=== PATIENT | male | born 1940 | race Caucasian/White ===

== ENCOUNTER 2018-01-18 00:30 | Emergency (ER) | payer MEDICARE, MEDICAID, SELFPAY ==
[2018-01-18 00:31] VITALS: BP 159/82; PULSE 84; RESP 18; TEMP 36.6; O2SAT 95; BMI 32.4
--- NOTE | 2018-01-18 01:10 | ED.VISSUMM ---
- ER Visit Summary Date of Service: 01/18/18 Chief Complaint: Medication refill History of Present Illness: The patient is a 77 M here for prescription for his Coumadin. Last dose was over 24 hours ago. On Coumadin for history of mechanical valve replacement in 2001. States was up to 9 mg 2 weeks ago by his PCP. Only on 6 mg. INR has not been rechecked since increasing. Denies any bleeding issues. Denies chest pains or shortness of breath. States call his PCP, however no call back all day. Physical Examination: General: Alert and oriented ?3, no acute distress HEENT: Normocephalic, atraumatic. Moist mucosa membranes Neck: supple, nontender. Cardiovascular: Regular rate and rhythm, no murmurs Respiratory: Normal breath sounds, symmetric, no distress Abdomen: Soft, nontender, nondistended Extremities: Nontender, no edema, pulses intact ?4 Neuro: no focal neurological deficits. Test Results: INR: 1.4 Emergency Department Course and Treatment: Patient asymptomatic. No recent INR check, this checked at 1.4. Has been on 9 mg for the last 2 weeks. He will be given 10 mg dose in the ED. Prescription will be written for a week supply. He will call his PCP for follow-up recheck of his Coumadin and further refills. Treatment Plan: [] Disposition: Discharge Impression: 1. Medication refill 2. Subtherapeutic INR This note was generated with [employer] dictation software. It may contain incorrect words, spelling, and punctuation that were not noted in review of the chart prior to signing ED Disposition - Plan for ED Patient: Disposition: Home or Assisted Living Chief Complaint: Med Refill Diagnosis: Medication refill, Subtherapeutic international normalized ratio (INR) Instructions: Med Refill, Taking?Coumadin Prescriptions: Warfarin Sodium 9 mg PO DAILY #12 tablet Referrals: Fredrick Conway MD [Primary Care Provider] - 3-5 Days Additional Instructions: INR 1.4 today. Status post 10 mg of warfarin in the ED. Take your 9 mg daily at home, call your PCP for recheck INR in 3-4 days.
[2018-01-18 01:17] LABS: International Normalized Ratio 1.4; Prothrombin Time (Protime)PT. 17.2 SECONDS (11.7-14.9)
[2018-01-18 02:08] VITALS: BP 138/83; PULSE 82; RESP 18; O2SAT 92
== END 2018-01-18 02:11 | disposition home or self-care (01) ==
PROVIDERS: Emergency Provider Emergency Medicine; Family Provider Family Medicine; PCP Family Medicine
DX: Z76.0 Encounter for issue of repeat prescription (principal); D68.9 Coagulation defect, unspecified; I25.10 Atherosclerotic heart disease of native coronary artery without angina pectoris; J44.9 Chronic obstructive pulmonary disease, unspecified; E11.9 Type 2 diabetes mellitus without complications; E78.00 Pure hypercholesterolemia, unspecified; Z86.73 Personal history of transient ischemic attack (TIA), and cerebral infarction without residual deficits; Z79.82 Long term (current) use of aspirin; Z79.01 Long term (current) use of anticoagulants; Z79.84 Long term (current) use of oral hypoglycemic drugs; Z79.899 Other long term (current) drug therapy
CPT/HCPCS: 85610; 99284; A4216

== ENCOUNTER 2019-03-16 20:16 | Emergency (ER) | payer MEDICARE, SELFPAY ==
[2019-03-16 20:17] VITALS: BP 169/98; PULSE 86; RESP 16; TEMP 36; O2SAT 98; BMI 31.1
--- NOTE | 2019-03-16 20:37 | ED.VIS.GEN ---
History of Present Illness Chief Complaint: Lower Extremity Injury Informant: Patient, Friend Onset: Yesterday Context: Sudden Onset Timing: Intermittent Quality: Spasm outer left leg Location: Lateral left leg Current Severity: - - None presently Maximum Severity: Moderate Worsened by: Nothing Relieved by: Nothing Associated Symptoms: No associated symptoms Narrative: Patient is a 78-year-old male who presents with intermittent spasm and firmness hardness of his lateral left leg since yesterday. Last seconds. He is on water pill. He denies trauma. He denies loss of function. The spasms are located between the knee and ankle on the lateral side of the left leg. Prior similar symptoms: No Recent Illness/Hospitalization: No - Past Medical History (1) Acute cerebrovascular accident Status: Acute (2) CAD (coronary artery disease) Status: Chronic (3) Chronic obstructive lung disease Status: Chronic (4) DM type 2 (diabetes mellitus, type 2) Status: Chronic (5) Hyperlipidemia Status: Chronic (6) mechanical prosthetic aortic valve replacement Status: Chronic Past Medical History - Allergies and Home Meds Allergies/Adverse Reactions: Allergies No Known Allergies Allergy (Verified 03/16/19 20:17) Primary Care Physician: Fredrick Conway MD [Primary Care Provider] - Prior records reviewed: Yes Surgical History: noncontributory Lives: Alone Smoking Status: Never smoker Alcohol: None Drugs: None - Family History Maternal Family History: Reports: No pertinent history Review of Systems General: Denies: Chills, Fever, Malaise, Subjective, Sweats, Weight loss ENT: Denies: Rhinorrhea, Sore throat Cardiovascular: Denies: Chest pain, Palpitations, Heart racing Respiratory: Denies: Dyspnea, Dyspnea on exertion, Orthopnea, Paroxysmal nocturnal dyspnea Gastrointestinal: Denies: Abdominal pain, Nausea, Vomiting, Diarrhea Musculoskeletal: Reports: Extremity Pain. Denies: Myalgias, Arthralgias, Neck pain, Back pain, Swelling, -, - Skin: Denies: Rash Neurological: Denies: Headache, Weakness, Parasthesia, Numbness Hematologic: Denies: Easy bruising, Easy bleeding Allergy: Denies: Uticaria, Swelling of the mouth, Swelling of the tongue Physical Exam Vital Signs/Narrative: Vital Signs Temp Pulse Resp BP Pulse Ox 03/16/19 20:17 96.8 F L 86 16 169/98 H 98 Inital Vital Signs reviewed: Yes General: Well nourished, Well developed, No Acute Distress Head: Normocephalic, Atraumatic Eyes: Perrl, EOMI ENT: Moist mucous membranes, No rhinorrhea Neck: Supple, Nontender. Negative for: No lymphadenopathy, No JVD, - Cardiovascular: Regular rate, Regular rhythm Respiratory: No distress Back: Nontender, Normal Inspection Extremities: Nontender, Edema - Plus pitting edema bilaterally, - - DP and PT pulses are diminished but palpable. There is no evidence of trauma. There is no firmness of the calf or leg. There is. Negative for: No edema Skin: Normal color, No rash, No Trauma. Negative for: Cyanosis, Diaphoresis, Jaundice Neurological: Alert, Oriented x3, Cranial nerves II-XII grossly intact, Normal Strength, Normal Sensation Psychological: Normal affect, Normal Mood Diagnostic/Tx/Re-eval Laboratory Results 03/16/19 21:20 Sodium 141 Potassium 4.4 Chloride 107 Carbon Dioxide 27.0 Anion Gap 7 BUN 31 H Creatinine 1.60 H Estim Creat Clear Calc 37.41 Est GFR (MDRD) Af Amer 54 L Est GFR (MDRD) Non-Af 45 L BUN/Creatinine Ratio 19.4 Glucose 161 H Calcium 8.7 Creatinine is elevated. Prior records indicate creatinine has been elevated in the past. Patient was informed the cause of his pain is unknown. - Medical Decision Making Since patient is on a diuretic and he is complaining of unusual symptoms and spasming of his lower extremity will obtain a basic metabolic panel to assess electrolytes. Is aware that his creatinine is elevated. He was informed that the cause of his pain is unknown. ED Disposition - Plan for ED Patient: Disposition: Home or Assisted Living Diagnosis: Intermittent left leg pain Instructions: PAIN, Uncertain Cause (Acute) Referrals: Fredrick Conway MD [Primary Care Provider] - 3-5 Days if not improving
[2019-03-16 21:42] LABS: Anion Gap 7 (5-15); BUN 31 mg/dL (7-18); BUN/Creat Ratio 19.4 RATIO (10-20); Calcium,Total 8.7 mg/dL (8.5-10.1); Chloride 107 mmol/L (98-107); EST Glomerular Filtration Rate 45 mL/min (>60); Est Glom Filt Rate - Afr Amer 54 mL/min (>60); Estimated Creatinine Clearance 37.41 ml/min; Glucose 161 mg/dL (74-106); Potassium 4.4 mmol/L (3.5-5.1); Sodium Level 141 mmol/L (136-145)
[2019-03-16 22:50] VITALS: BP 154/87; PULSE 84; RESP 16; O2SAT 97
== END 2019-03-16 22:51 | disposition home or self-care (01) ==
PROVIDERS: Emergency Provider Emergency Medicine; Family Provider Family Medicine; PCP Family Medicine
DX: M79.605 Pain in left leg (principal); I25.10 Atherosclerotic heart disease of native coronary artery without angina pectoris; J44.9 Chronic obstructive pulmonary disease, unspecified; E11.9 Type 2 diabetes mellitus without complications; E78.5 Hyperlipidemia, unspecified; Z86.73 Personal history of transient ischemic attack (TIA), and cerebral infarction without residual deficits; Z79.01 Long term (current) use of anticoagulants; Z79.82 Long term (current) use of aspirin; Z79.84 Long term (current) use of oral hypoglycemic drugs; Z79.899 Other long term (current) drug therapy
CPT/HCPCS: 36415; 80048; 99282

== ENCOUNTER 2019-07-18 15:36 | Observation (INO) | payer MEDICARE, SELFPAY ==
[2019-07-18] VITALS (7 sets, daily range): BP systolic 132–153; BP diastolic 58–93; PULSE 70–77; RESP 18–20; TEMP 36.5–37.1; O2SAT 92–98; BMI 32.1; BMI 31.4
--- NOTE | 2019-07-18 16:07 | ED.DCSUM_ITS ---
History of Present Illness Chief Complaint: GI Bleed Informant: Patient Onset: Today Current Severity: Mild Maximum Severity: Mild Narrative: Patient noted bright red blood per rectum approximately 1 hour ago. He denies abdominal pain, vomiting, diarrhea. He believes his last colonoscopy was about 4 years ago and was normal. This was performed by a physician in [place]. Patient is on chronic Coumadin secondary to aortic valve replacement. 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 Denies: Abdominal pain, Nausea, Vomiting, Diarrhea Musculoskeletal: Denies: Myalgias, Back pain Skin: Denies: Rash Neurological: Denies: Headache Allergy: Denies: Uticaria Physical Exam Vital Signs/Narrative: Vital Signs Temp Pulse Resp BP Pulse Ox 07/18/19 15:44 18 07/18/19 15:42 97.7 F L 77 18 132/93 H 94 Inital Vital Signs reviewed: Yes General: Well nourished, Well developed Head: Normocephalic ENT: Moist mucous membranes Neck: Supple Cardiovascular: Regular rate, Regular rhythm Respiratory: No distress, CTA bilaterally Abdomen: Soft, Nontender, Normal bowel sounds Rectal: - - Light brown stool as well as blood noted on gloved finger. No obvio us hemorrhoids. Extremities: Nontender Skin: Normal color Neurological: Alert, Oriented x3 Psychological: Normal affect Diagnostic/Tx/Re-eval 07/18/19 16:55 Stool Stool Occult Blood (HESHAM) - Final Occult Blood Positive Laboratory Results 07/18/19 07/18/19 07/18/19 16:23 16:23 16:23 WBC 8.3 RBC 4.56 L Hgb 13.9 Hct 41.7 MCV 91.4 MCH 30.5 MCHC 33.3 RDW Std Deviation 46.9 H RDW Coeff of Yessi 14.0 Plt Count 121 L MPV 11.6 Immature Gran % (Auto) 0.400 Neut % (Auto) 73.7 H Lymph % (Auto) 16.0 L [place] % (Auto) 8.7 Eos % (Auto) 1.0 Baso % (Auto) 0.2 Absolute Neuts (auto) 6.1 Absolute Lymphs (auto) 1.33 Nucleated RBC % 0 PT 42.8 H INR 4.4 H* Sodium 140 Potassium 3.9 Chloride 107 Carbon Dioxide 28.0 Anion Gap 5 BUN 34 H Creatinine 1.72 H Estim Creat Clear Calc 34.80 Est GFR (MDRD) Af Amer 50 L Est GFR (MDRD) Non-Af 41 L BUN/Creatinine Ratio 19.8 Glucose 195 H Calcium 8.8 - Medical Decision Making Patient was given IV fluids here. Vital signs are stable. I will speak with surgery regarding follow-up and hospitalist for admission. ED Disposition - Plan for ED Patient: Disposition: Acute Care Hospital [facility] Diagnosis: GI bleed, Supratherapeutic INR
[2019-07-18] MEDS: 0.9% Normal Saline 1,000 ML 150 ML IV (16:23)
[2019-07-18 16:38] LABS: Absolute Lymphocyte Count 1.33 X10^3/uL (0.83-4.51); Absolute Neutrophil Count 6.1 X10^3/uL (2.0-7.7); Basophil# 0.02 X10^3/uL; Basophil% 0.2 % (0-1); Eosinophil# 0.08 X10^3/uL; Hematocrit 41.7 % (40-54); Hemoglobin 13.9 g/dL (13.0-16.5); Lymphocyte # 1.33 X10^3/ul (4.0); Mean Corp Hgb Conc 33.3 g/dL (32-36); Mean Corpuscular Hgb 30.5 pg (27.0-32.0); Mean Corpuscular Volume 91.4 fL (80-94); Mean Platelet Vol. 11.6 fl (6.2-12.0); Monocyte# 0.72 X10^3/uL; Monocyte% 8.7 % (0-10); NRBC Flagged by Analyzer 0 % (0-5); Neutrophil # 6.12 X10^3/uL (2.7-7.7); Neutrophil % 73.7 % (47-70); Platelet Count 121 K/mm3 (150-450); RBC Distribution Width SD 46.9 fl (35.1-43.9); Red Blood Count 4.56 M/mm3 (4.6-6.2); White Blood Count 8.3 K/mm3 (4.4-11.0)
[2019-07-18 16:55] LABS: Prothrombin Time (Protime)PT. 42.8 SECONDS (11.7-14.9)
[2019-07-18 17:04] LABS: Anion Gap 5 (5-15); BUN 34 mg/dL (7-18); BUN/Creat Ratio 19.8 RATIO (10-20); Calcium,Total 8.8 mg/dL (8.5-10.1); Chloride 107 mmol/L (98-107); Creatinine, Serum 1.72 mg/dL (0.70-1.30); EST Glomerular Filtration Rate 41 mL/min (>60); Est Glom Filt Rate - Afr Amer 50 mL/min (>60); Glucose 195 mg/dL (74-106); Potassium 3.9 mmol/L (3.5-5.1); Sodium Level 140 mmol/L (136-145)
[2019-07-18 17:15] LABS: International Normalized Ratio 4.4
--- NOTE | 2019-07-18 18:15 | HP.PCM_ITS ---
History of Present Illness Date of Admission: 07/18/19 Chief Complaint: Bright red blood per rectum and elevated INR The patient is a 78 year old M with a medical history of coronary artery disease, aortic valve replacement, previous CVA, DM 2, HTN, HLD, GERD, bipolar disorder presents with bright red blood per rectum and elevated INR. He noticed the bright red blood about an hour prior to coming into the hospital. He states that if he had not had the bright red blood then he would have presented to the ER because of his elevated INR however if both of those were normal he felt fine and would not come in. He denies any lightheadedness, and states that he has chronic dizziness. In the ER hemoglobin was found to be 13.7 vital signs were stable. On the rectal exam there was bright red blood that was not mixed in with stool. Past Medical History Past Medical History (Chronic Problems): Chronic Problems Acute cerebrovascular accident (Chronic) CAD (coronary artery disease) (Chronic) mechanical prosthetic aortic valve replacement (Chronic) Hyperlipidemia (Chronic) DM type 2 (diabetes mellitus, type 2) (Chronic) Chronic obstructive lung disease (Chronic) Allergies No Known Allergies Allergy (Verified 03/16/19 20:17) Home Medications: Ambulatory Orders Medication Instructions Recorded Allopurinol [Zyloprim] 100 mg PO DAILYCM 06/13/17 Aspirin E.C. [Ecotrin] 81 mg PO DAILY@0800 06/13/17 Atorvastatin Calcium [Lipitor] 40 mg PO DAILY 06/13/17 Divalproex Sodium [Depakote ER] 500 mg PO BID 06/13/17 Docusate Sodium [Colace] 100 mg PO BID 06/13/17 Fluticasone 110 Mcg [Flovent (SP)] 1 puff INHALATION BID 06/13/17 Fluticasone Propionate [Flovent 50 mcg IH DAILY 06/13/17 Diskus] Furosemide [Lasix] 10 mg PO QHS 06/13/17 Furosemide [Lasix] 30 mg PO DAILY 06/13/17 Hydrocortisone 2.5% Crm [Hytone] 1 applic TOPICAL BID PRN PRN 06/13/17 Levothyroxine Sodium [Levoxyl] 50 mcg PO DAILY 06/13/17 Metoprolol Succinate 25 mg PO DAILY 06/13/17 Nitroglycerin (INPATIENT USE) 0.4 mg SUBLINGUAL Q5M PRN 06/13/17 [Nitrostat] Omeprazole [Prilosec] 20 mg PO BID 06/13/17 Oxybutynin Chloride [Ditropan Xl] 5 mg PO DAILY 06/13/17 Polyethylene Glycol 3350 [Miralax] 17 gm PO DAILY 06/13/17 Potassium Chloride [Klor-Con M20] 20 meq PO DAILY 06/13/17 Psyllium Husk [Reguloid] 0.4 gm PO DAILY 06/13/17 Quetiapine Fumarate [Seroquel] 200 mg PO BID 06/13/17 Sennosides [Senna Laxative] 8.6 mg PO BID PRN 06/13/17 Warfarin [Coumadin (PBKC)] 6 mg PO DAILY@1700 06/13/17 glipiZIDE [Glucotrol] 10 mg PO DAILY@0730 06/13/17 metFORMIN HCl [Glucophage] 500 mg PO BIDCM 06/13/17 Surgical History: cholecystectomy, - - Bladder resection and aortic valve replacement Psychiatric History: Bipolar Smoking Status: Former smoker Tobacco Use: Cigarettes Alcohol: None Drugs: None - *Family History Maternal History Items: Unknown - He does not know any biological history of either parent as he was raised in an orphanage Review of Systems Constitutional: Denies: Chills, Fever, Weight Change HEENT: Denies: Head Aches, Sinus Congestion, Sinus Drainage Cardiovascular: Denies: Chest Pain, Palpitations Respiratory: Denies: Cough, Shortness of breath at rest, Sputum production Gastrointestinal: Reports: Hematochezia. Denies: Abdominal Pain, Nausea, Vomiting Genitourinary: Denies: Dysuria Musculoskeletal: Denies: Joint Pain, Joint Tenderness Skin: Denies: Rash, Wounds Neurological: Denies: Numbness, Tingling, Focal weakness Psychiatric: Denies: Anxiety, Depression Hematologic/ Lymphatic: Denies: Easy Bruising, Easy Bleeding VTE Information - Inpt Only VTE Present on Admission: No - Physical Exam Vitals/I&O's: Vital Signs Temp Pulse Resp BP Pulse Ox 97.7 F L 74 18 139/67 H 96 07/18/19 15:42 07/18/19 18:02 07/18/19 18:02 07/18/19 18:02 07/18/19 18:02 Oxygen Delivery Method Room Air Weight: 211 lb 6.773 oz Body Mass Index (BMI) 32.1 Finger Stick Blood Glucose 188 General: Alert, Oriented x3, Cooperative, No apparent distress HEENT: Atraumatic, PERRLA, EOMI, Normocephalic Oral: Moist Mucosa Neck: Supple, No JVD Lungs: Clear to auscultation, Normal air movement, No rhonchi, No wheeze, No rales Cardiovascular: Regular rate, Regular Rhythm, Normal S1, Normal S2, No murmurs, - - Click from valve Abdomen: Soft, Non Tender, Non-Distended, No Hepato-splenomegaly Extremities: No edema, Capillary Refill Less than 3 Seconds Skin: No rashes, No breakdown Neurological: Neuro grossly intact, Sensory exam intact to light touch and pain Psych/Mental Status: Normal Affect, Appropriate Microbiology Past 72 Hours 07/18/19 16:55 Stool Stool Occult Blood (HESHAM) - Final Occult Blood Positive Laboratory Results 07/18/19 16:23: WBC 8.3, RBC 4.56 L, Hgb 13.9, Hct 41.7, MCV 91.4, MCH 30.5, MCHC 33.3, RDW Std Deviation 46.9 H, RDW Coeff of Yessi 14.0, Plt Count 121 L, MPV 11.6, Immature Gran % (Auto) 0.400, Neut % (Auto) 73.7 H, Lymph % (Auto) 16.0 L , [place] % (Auto) 8.7, Eos % (Auto) 1.0, Baso % (Auto) 0.2, Absolute Neuts (auto) 6.1, Absolute Lymphs (auto) 1.33, Nucleated RBC % 0 07/18/19 16:23: PT 42.8 H, INR 4.4 H* 07/18/19 16:23: Sodium 140, Potassium 3.9, Chloride 107, Carbon Dioxide 28.0, Anion Gap 5, BUN 34 H, Creatinine 1.72 H, Estim Creat Clear Calc 34.80, Est GFR (MDRD) Af Amer 50 L, Est GFR (MDRD) Non-Af 41 L, BUN/Creatinine Ratio 19.8, Glucose 195 H, Calcium 8.8 07/18/19 16:23: Blood Type B POSITIVE, Antibody Screen NEGATIVE Current Medications Sodium Chloride () 1,000 mls @ 150 mls/hr IV .Q6H40M EDD Last Admin: 07/18/19 16:23 Dose: 150 mls/hr Documented by: Assessment/Plan All Active Problems Anticoagulation goal of INR 2.5 to 3.5 (Acute) Facial droop (Acute) 1. 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 CAD that is post CABG/HTN/HLD/aortic valve replacement/history of CVA -Blood pressure has been stable -Continue with aspirin as well and his Lipitor -There may also be a diagnosis of heart failure since he does have in his chart project read discharge instructions, and he is on Lasix which can be continued -Hold Coumadin 3. DM 2/CKD 3 -We will hold his oral diabetic medications and place him on a sliding scale insulin -Accu checks AC at bedtime -Continue to monitor creatinine 4. History of gout -Stable -Continue with allopurinol 5. Bipolar disorder -Stable -Tinea with Depakote and Seroquel 6. GERD -Stable -Continue with PPI 7. Hypothyroidism -Stable -Continue with Synthroid DVT: Supratherapeutic INR Code Visit OBSV E&M: 96926 Initial observation care L3
[2019-07-18] MEDS: 0.9% Saline Lock 10 ML Syringe IV (20:17)
[2019-07-18] MEDS: Pantoprazole Sodium 20 MG Tablet PO (21:17)
[2019-07-18] MEDS: Atorvastatin Calcium 40 MG Tablet PO (21:17)
[2019-07-18] MEDS: Divalproex (ER) 500 MG Tablet PO (21:17)
[2019-07-18] MEDS: Docusate Sodium 100 MG Capsule PO (21:17)
[2019-07-18] MEDS: QUEtiapine 100 MG Tablet 200 MG PO (21:17)
[2019-07-18] MEDS: Furosemide 20 MG Tablet 10 MG PO (21:18)
[2019-07-18 21:26] LABS: Bedside Glucose 135 mg/dL (70-110)
[2019-07-18] MEDS: Budesonide Respules 0.5 MG/2 ML AMPUL.NEB. INHALATION (21:53)
[2019-07-19] VITALS (8 sets, daily range): BP systolic 117–137; BP diastolic 70–83; PULSE 68–79; RESP 16–21; TEMP 36.4–36.6; O2SAT 93–97
[2019-07-19] MEDS: Levothyroxine 50 MCG Tablet PO (06:42)
[2019-07-19 06:50] LABS: Bedside Glucose 85 mg/dL (70-110)
[2019-07-19 06:59] LABS: Absolute Lymphocyte Count 2.42 X10^3/uL (0.83-4.51); Absolute Neutrophil Count 4.4 X10^3/uL (2.0-7.7); Basophil# 0.03 X10^3/uL; Basophil% 0.4 % (0-1); Eosinophil# 0.12 X10^3/uL; Eosinophils% 1.5 % (0-5); Hematocrit 40.3 % (40-54); Hemoglobin 13.3 g/dL (13.0-16.5); Lymphocyte # 2.42 X10^3/ul (4.0); Lymphocyte % 31.2 % (19-41); Mean Corpuscular Hgb 29.8 pg (27.0-32.0); Mean Corpuscular Volume 90.2 fL (80-94); Mean Platelet Vol. 11.6 fl (6.2-12.0); Monocyte# 0.77 X10^3/uL; Monocyte% 9.9 % (0-10); NRBC Flagged by Analyzer 0 % (0-5); Neutrophil # 4.39 X10^3/uL (2.7-7.7); Neutrophil % 56.7 % (47-70); Platelet Count 117 K/mm3 (150-450); RBC Distribution Width SD 45.9 fl (35.1-43.9); Red Blood Count 4.47 M/mm3 (4.6-6.2); White Blood Count 7.8 K/mm3 (4.4-11.0)
[2019-07-19 07:04] LABS: Prothrombin Time (Protime)PT. 35.9 SECONDS (11.7-14.9)
[2019-07-19 07:08] LABS: Anion Gap 6 (5-15); BUN 27 mg/dL (7-18); BUN/Creat Ratio 19.1 RATIO (10-20); Calcium,Total 8.5 mg/dL (8.5-10.1); Chloride 109 mmol/L (98-107); Creatinine, Serum 1.41 mg/dL (0.70-1.30); EST Glomerular Filtration Rate 52 mL/min (>60); Est Glom Filt Rate - Afr Amer 63 mL/min (>60); Estimated Creatinine Clearance 42.45 ml/min; Glucose 84 mg/dL (74-106); Potassium 3.7 mmol/L (3.5-5.1); Sodium Level 142 mmol/L (136-145)
[2019-07-19 07:12] LABS: International Normalized Ratio 3.6
--- NOTE | 2019-07-19 08:10 | PCM.PN.HOSP ---
Patient Problems: Active and Suspected Problems GI bleed (Acute) Supratherapeutic INR (Acute) Reason for Visit: GI bleed Subjective: Patient was seen and examined. Denied any new complaints. No more bleeding seen. Objective: Physical exam: General: Alert, Oriented x3, Cooperative, No apparent distress HEENT: Atraumatic, PERRLA, EOMI, Normocephalic Oral: Moist Mucosa Neck: Supple, No JVD Lungs: Clear to auscultation, Normal air movement, No rhonchi, No wheeze, No rales Cardiovascular: Regular rate, Regular Rhythm, Normal S1, Normal S2, No murmurs, - - Click from valve Abdomen: Soft, Non Tender, Non-Distended, No Hepato-splenomegaly Extremities: No edema, Capillary Refill Less than 3 Seconds Skin: No rashes, No breakdown Neurological: Neuro grossly intact, Sensory exam intact to light touch and pain Psych/Mental Status: Normal Affect, Appropriate Vitals/I&O's: Vital Signs Temp Pulse Resp BP Pulse Ox 97.6 F L 68 20 H 123/70 H 93 07/19/19 03:50 07/19/19 03:50 07/19/19 03:50 07/19/19 03:50 07/19/19 03:50 Oxygen Delivery Method Room Air Weight: 93.621 kg Body Mass Index (BMI) 31.4 Finger Stick Blood Glucose 188 Intake and Output for Last 24 Hours 07/17/19 07/18/19 07/19/19 23:59 23:59 23:59 Intake Total 1000 / 1000 400 / 400 Output Total 350 / 350 Balance 1000 / 1000 50 / 50 Microbiology Past 72 Hours 07/18/19 16:55 Stool Stool Occult Blood (HESHAM) - Final Occult Blood Positive Laboratory Results 07/18/19 16:23: WBC 8.3, RBC 4.56 L, Hgb 13.9, Hct 41.7, MCV 91.4, MCH 30.5, MCHC 33.3, RDW Std Deviation 46.9 H, RDW Coeff of Yessi 14.0, Plt Count 121 L, MPV 11.6, Immature Gran % (Auto) 0.400, Neut % (Auto) 73.7 H, Lymph % (Auto) 16.0 L, [place] % (Auto) 8.7, Eos % (Auto) 1.0, Baso % (Auto) 0.2, Absolute Neuts (auto) 6.1, Absolute Lymphs (auto) 1.33, Nucleated RBC % 0 07/18/19 16:23: PT 42.8 H, INR 4.4 H* 07/18/19 16:23: Sodium 140, Potassium 3.9, Chloride 107, Carbon Dioxide 28.0, Anion Gap 5, BUN 34 H, Creatinine 1.72 H, Estim Creat Clear Calc 34.80, Est GFR (MDRD) Af Amer 50 L, Est GFR (MDRD) Non-Af 41 L, BUN/Creatinine Ratio 19.8, Glucose 195 H, Calcium 8.8 07/18/19 16:23: Blood Type B POSITIVE, Antibody Screen NEGATIVE 07/18/19 21:07: POC Glucose 135 H 07/19/19 06:03: WBC 7.8, RBC 4.47 L, Hgb 13.3, Hct 40.3, MCV 90.2, MCH 29.8, MCHC 33.0, RDW Std Deviation 45.9 H, RDW Coeff of Yessi 14.0, Plt Count 117 L, MPV 11.6, Immature Gran % (Auto) 0.300, Neut % (Auto) 56.7, Lymph % (Auto) 31.2, [place] % (Auto) 9.9, Eos % (Auto) 1.5, Baso % (Auto) 0.4, Absolute Neuts (auto) 4.4, Absolute Lymphs (auto) 2.42, Nucleated RBC % 0 07/19/19 06:03: PT 35.9 H, INR 3.6 H* 07/19/19 06:03: Sodium 142, Potassium 3.7, Chloride 109 H, Carbon Dioxide 27.0, Anion Gap 6, BUN 27 H, Creatinine 1.41 H, Estim Creat Clear Calc 42.45, Est GFR (MDRD) Af Amer 63, Est GFR (MDRD) Non-Af 52 L, BUN/Creatinine Ratio 19.1, Glucose 84, Calcium 8.5 07/19/19 06:42: POC Glucose 85 Current Medications [facility]) [facility] Atorvastatin Calcium (Lipitor) 40 mg PO QHS [facility] Last Admin: 07/18/19 21:17 Dose: 40 mg Documented by: Budesonide (Pulmicort Aerosol) 0.5 mg INHALATION Q12H.RT [facility] Last Admin: 07/18/19 21:53 Dose: 0.5 mg Documented by: Divalproex Sodium (Depakote Er) 500 mg PO BID [facility] Last Admin: 07/18/19 21:17 Dose: 500 mg Documented by: Docusate Sodium (Colace) 100 mg PO BID [facility] Last Admin: 07/18/19 21:17 Dose: 100 mg Documented by: Fluticasone Propionate (Flonase Nasal [place]) 2 spray NASAL DAILY [facility] Furosemide (Lasix) 10 mg PO QHS [facility] Last Admin: 07/18/19 21:18 Dose: 10 mg Documented by: Furosemide (Lasix) 30 mg PO DAILY [facility] Glucagon () 1 mg IM .X1 PRN PRN Reason: Hypoglycemia Dextrose (Dextrose 10%-Water) 250 mls @ 999 mls/hr IV .Q16M PRN; Protocol PRN Reason: HYPOGLYCEMIA Insulin Human Lispro (Humalog Kwikpen (Bkc)) 0 unit SC ACHS [facility]; Protocol Last Admin: 07/19/19 06:42 Dose: Not Given Documented by: Levothyroxine Sodium (Synthroid) 50 mcg PO DAILY@0600 [facility] Last Admin: 07/19/19 06:42 Dose: 50 mcg Documented by: Metoprolol Succinate (Toprol Xl (Beta Damir)) 25 mg PO DAILY [facility] Pantoprazole Sodium (Protonix) 20 mg PO BID [facility] Last Admin: 07/18/19 21:17 Dose: 20 mg Documented by: Polyethylene Glycol (Miralax) 17 gm PO DAILY [facility] Potassium Chloride (K-Dur) 20 meq PO DAILY [facility] Quetiapine Fumarate (Seroquel) 200 mg PO BID [facility] Last Admin: 07/18/19 21:17 Dose: 200 mg Documented by: Sodium Chloride () 10 - 40 ml IV UD PRN PRN Reason: SALINE FLUSH Last Admin: 07/18/19 20:17 Dose: 10 ml Documented by: Tolterodine Tartrate (Detrol La) 2 mg PO DAILY [facility] Medical Necessity - Tobacco Use Smoking Status: Former smoker Tobacco Use: Cigarettes Assessment/Plan All Active Problems GI bleed (Acute) Supratherapeutic INR (Acute) Anticoagulation goal of INR 2.5 to 3.5 (Acute) Facial droop (Acute) 1. GI bleed, resolved, stable vitals, stable hemoglobin Will continue to monitor 2. CAD s/p CABG/aortic valve replacement, continue on aspirin, statin INR is slightly supratherapeutic, would hold off coumadin, goal INR -2.5-3.5 Repeat INR in a.m. 3. Type 2 DM, BS are controlled, Continue on ISS 4. Gout, on allopurinol 5. Bipolar disorder, continue on Depakote and Seroquel 6. Hypothyroidism, continue on Synthroid 7. DVT PPx -INR is supratherapeutic Code Visit Inpatient E&M: 14056 Subs Hosp L2
[2019-07-19] MEDS: Fluticasone 0.05% 1 SPRAY NASAL.SRY 2 SPRAY NASAL (08:20)
[2019-07-19] MEDS: Pantoprazole Sodium 20 MG Tablet PO ×2 (08:21→22:48)
[2019-07-19] MEDS: Furosemide 20 MG Tablet 30 MG PO (08:21)
[2019-07-19] MEDS: Tolterodine Tartrate 2 MG CAP.SA PO (08:21)
[2019-07-19] MEDS: Docusate Sodium 100 MG Capsule PO ×2 (08:22→22:48)
[2019-07-19] MEDS: Divalproex (ER) 500 MG Tablet PO ×2 (08:23→22:48)
[2019-07-19] MEDS: QUEtiapine 100 MG Tablet 200 MG PO ×2 (08:23→22:48)
[2019-07-19] MEDS: Allopurinol 100 MG Tablet PO (08:23)
[2019-07-19] MEDS: Polyethylene Glycol 3350 17 GM PACKET PO (08:23)
[2019-07-19] MEDS: Metoprolol(XL)Succ 25 MG Tablet PO (08:23)
[2019-07-19 11:10] LABS: Bedside Glucose 115 mg/dL (70-110)
[2019-07-19] MEDS: Budesonide Respules 0.5 MG/2 ML AMPUL.NEB. INHALATION ×2 (11:34→19:09)
--- NOTE | 2019-07-19 11:50 | CASEMGMT ---
RN CM Face to Face with patient for initial transition planning/care coordination assessment. RN CM introduced self and role at [facility]. Patient sitting in chair, alert and oriented. Patient willing to participate in assessment and is able to answer all questions appropriately. Care providers, pharmacy, and demographics verified. Patient wishes to discharge home with resumption of aide services. Patient states he has no further needs or concerns at this time. CM to follow for discharge planning needs that may arise. PCP: Man Specialists: Zach resident inspector Preferred Pharmacy: [facility] Insurance: [employer] Prescription Benefit: yes Living Will/HPOA: yes, Feng Le LNOK: [facility] Living Arrangements: Patient lives alone in first floor apartment, no steps. Patient states he is independent at home. Transportation: [facility] [employer] DME/HHC: Patient has shower chair, grab bars, Cpap at home. Patient has aide services through [employer] 6 days per week, patient not aware of company. SW updated regarding [employer] services Disposition Plan: Patient to discharge home with aide services and follow-up plans in place. Sharmila NELSON, RN, CM
--- NOTE | 2019-07-19 14:48 | CASEMGMT ---
DARRON called [facility], message left for pt's CHERRY Bryan. SW called back and spoke w/the covering transplant case manager, Karan Cruz. He states pt has aide services two hours per day 6 days per week for homemaker services and personal care through [employer]. He states pt has aide services every day but Monday. Pt also has [employer], 10 meals delivered biweekly. DARRON called [employer], spoke w/hCaya and let her know pt is here in the hospital. Green sheet placed on chart in anticipation of weekend discharge for pt. ALEK Hinds
--- NOTE | 2019-07-19 15:42 | CHAPLAIN ---
Type of Pastoral Visit _x__ Initial Visit ___ Follow-up Visit ___ On-call Visit ___ General Patient Visit ___ Spiritual Assessment ___ Family Conference ___ Bereavement ___ Rapid Response ___ Code Blue ___ Other (describe below) Pastoral Care Referral From _x__ Patient ___ Family ___ Nurse ___ Physician ___ Hot Dip Tinning Supervisor ___ Costume Design Teacher ___ Other (describe below) Sacrament/Intervention _x__ Active listening ___ Anointing ___ Mandaen ___ Bereavement ___ Communion _x__ Dolores exploration ___ _x__ Life review _x__ Prayer ___ Reconciliation ___ Sacrament of Sick _x__ Supportive presence ___ Wedding ___ Other (describe below) Pastoral Comments patient gives a lot of information about his life history and the challenges he has faced; pt expresses his dolores in God; pt would like loss prevention detective to contact his gnosticism; contact was made with gnosticism later by this loss prevention detective
--- NOTE | 2019-07-19 15:48 | CASEMGMT ---
RN CHERRY NOTE: To room to review OWEN form. Introduced self and role of RN CHERRY. Reviewed OWEN form with pt and he denies having questions. Form signed by pt, copy made and placed on chart, and original given to pt. Pt instructed to ask for CM if he has any further questions. Pilar MACKEYN MACARENA CM
[2019-07-19 16:11] LABS: Bedside Glucose 146 mg/dL (70-110)
[2019-07-19] MEDS: Furosemide 20 MG Tablet 10 MG PO (22:47)
[2019-07-19] MEDS: Atorvastatin Calcium 40 MG Tablet PO (22:48)
[2019-07-19 22:56] LABS: Bedside Glucose 107 mg/dL (70-110)
[2019-07-20 02:50] VITALS: BP 124/67; PULSE 74; RESP 16; TEMP 36.9; O2SAT 95
[2019-07-20] MEDS: Levothyroxine 50 MCG Tablet PO (06:36)
[2019-07-20 06:50] LABS: Bedside Glucose 116 mg/dL (70-110)
[2019-07-20 06:53] VITALS: PULSE 67; RESP 20; O2SAT 94
[2019-07-20] MEDS: Budesonide Respules 0.5 MG/2 ML AMPUL.NEB. INHALATION (06:53)
[2019-07-20 07:18] LABS: Absolute Lymphocyte Count 1.85 X10^3/uL (0.83-4.51); Basophil# 0.02 X10^3/uL; Basophil% 0.3 % (0-1); Eosinophil# 0.24 X10^3/uL; Eosinophils% 4.2 % (0-5); Hematocrit 40.4 % (40-54); Hemoglobin 13.5 g/dL (13.0-16.5); Lymphocyte # 1.85 X10^3/ul (4.0); Lymphocyte % 32.1 % (19-41); Mean Corp Hgb Conc 33.4 g/dL (32-36); Mean Corpuscular Volume 89.8 fL (80-94); Mean Platelet Vol. 11.9 fl (6.2-12.0); Monocyte# 0.62 X10^3/uL; Monocyte% 10.7 % (0-10); NRBC Flagged by Analyzer 0 % (0-5); Neutrophil # 3.02 X10^3/uL (2.7-7.7); Neutrophil % 52.4 % (47-70); Platelet Count 110 K/mm3 (150-450); RBC Distribution Width CV 13.9 % (11.6-14.6); RBC Distribution Width SD 45.3 fl (35.1-43.9); White Blood Count 5.8 K/mm3 (4.4-11.0)
[2019-07-20 07:24] LABS: International Normalized Ratio 2.8; Prothrombin Time (Protime)PT. 29.3 SECONDS (11.7-14.9)
[2019-07-20 07:39] LABS: Anion Gap 6 (5-15); BUN 19 mg/dL (7-18); BUN/Creat Ratio 13.7 RATIO (10-20); Chloride 110 mmol/L (98-107); Creatinine, Serum 1.39 mg/dL (0.70-1.30); EST Glomerular Filtration Rate 53 mL/min (>60); Est Glom Filt Rate - Afr Amer 64 mL/min (>60); Estimated Creatinine Clearance 42.37 ml/min; Glucose 116 mg/dL (74-106); Potassium 4.3 mmol/L (3.5-5.1); Sodium Level 141 mmol/L (136-145)
[2019-07-20 08:00] VITALS: BP 124/77; PULSE 64; RESP 14; TEMP 36.4; O2SAT 95
--- NOTE | 2019-07-20 08:11 | DCINST_ITS ---
- Discharge Diagnoses Current Active Problems: Current Active and Chronic Problems GI bleed (Acute) Supratherapeutic INR (Acute) Reason(s) for Visit for Discharge Instructions: GI bleed You will use the following diet at home:: Cardiac Your food should be the consistency of: Regular Your liquids should be the consistency of: Regular/Thin Discharge Activity: Return to Normal Activity Additional Instructions: Continue to take your medications. Follow-up with your primary care doctor for INR checks within 3 days. Continue to monitor for blood in your stools. Allergies/Adverse Reactions: Allergies No Known Allergies Allergy (Verified 03/16/19 20:17) Medications to take at Discharge Allopurinol [Zyloprim] 100 mg PO DAILYCM 06/13/17 Aspirin E.C. [Ecotrin] 81 mg PO DAILY@0800 06/13/17 Atorvastatin Calcium [Lipitor] 40 mg PO DAILY 06/13/17 Divalproex Sodium [Depakote ER] 500 mg PO BID 06/13/17 Docusate Sodium [Colace] 100 mg PO BID 06/13/17 Fluticasone 110 Mcg [Flovent 110 Mcg] 1 puff INHALATION BID 06/13/17 Furosemide [Lasix] 10 mg PO QHS 06/13/17 Furosemide [Lasix] 30 mg PO DAILY 06/13/17 Nitroglycerin (INPATIENT USE) [Nitrostat] 0.4 mg SUBLINGUAL Q5M PRN 06/13/17 Omeprazole [Prilosec] 20 mg PO BID 06/13/17 Oxybutynin Chloride [Ditropan Xl] 5 mg PO DAILY 06/13/17 Polyethylene Glycol 3350 [Miralax] 17 gm PO DAILY 06/13/17 Quetiapine Fumarate [Seroquel] 200 mg PO BID 06/13/17 glipiZIDE [Glucotrol] 10 mg PO DAILY@0730 06/13/17 metFORMIN HCl [Glucophage] 500 mg PO BIDCM 06/13/17 Fluticasone 0.05% [Flonase Nasal [place]] 2 spray NASAL DAILY 07/18/19 Insulin Glargine,Hum.rec.anlog [Basaglar Kwikpen U-100] 16 unit SQ QHS 07/18/19 Levothyroxine Sodium 50 mcg PO DAILY 07/18/19 Metoprolol Succinate [Toprol Xl] 25 mg PO DAILY 07/18/19 Potassium Chloride [Klor-Con M20] 20 meq PO DAILY 07/18/19 Psyllium Husk [Reguloid] 0.4 mg PO DAILY 07/18/19 Sennosides [Senna] 8.6 mg PO BID PRN PRN 07/18/19 Warfarin [Coumadin] 3 mg PO DAILY #30 tab 07/20/19 The following prescriptions were given: Warfarin [Coumadin] 3 mg PO DAILY #30 tab Primary Care Physician: Fredrick Conway MD [Primary Care Provider] - Please follow up with your Primary Care Physician in: within 1 week Test Results: Test results from this visit will be discussed in further detail at your follow- up appointment, if applicable. Proposed Discharge Date: 07/20/19
--- NOTE | 2019-07-20 09:58 | DS.PCM_ITS ---
Discharge Date and Diagnosis Date of Admission: 07/18/19 Date of Discharge: 07/20/19 - Primary Discharge Diagnosis Active and Suspected Problems GI bleed (Acute) Supratherapeutic INR (Acute) - Secondary Discharge Diagnosis Chronic Problems Acute cerebrovascular accident (Chronic) CAD (coronary artery disease) (Chronic) mechanical prosthetic aortic valve replacement (Chronic) Hyperlipidemia (Chronic) DM type 2 (diabetes mellitus, type 2) (Chronic) Chronic obstructive lung disease (Chronic) Hospital Course and Treatment None Operations: None Procedures: None Summary of Care Provided: The patient is a 79 year old M with past medical history of CAD status post CABG, status post aortic valve replacement, type II DM, hypertension who comes in with bleeding per rectum and an elevated INR. Patient INR was elevated and was told to be off his Coumadin. 1 hour prior to his admission, he noted bright red bleeding in his stools. Patient's INR was 2.4 on admission. His Coumadin was held. Repeat INR was 3.6. This was held further, repeat INR on the day of discharge was 2.8. There was no bleeding noted during the hospital stay. His hemoglobin remained stable at 13.5. Patient GI bleed was felt to be due to probable hemorrhoids. He was discharged on Coumadin 3 mg daily. We will follow-up with his primary care doctor in 3 days for repeat INR. He was asked to monitor his stools for further bleeding. He was asked to follow-up with his primary care doctor within 1 to 2 weeks. Subjective: On the day of discharge, patient was seen and examined. He felt improved, no bleeding seen here Objective: Physical exam: General: Alert, Oriented x3, Cooperative, No apparent distress HEENT: Atraumatic, PERRLA, EOMI, Normocephalic Oral: Moist Mucosa Neck: Supple, No JVD Lungs: Clear to auscultation, Normal air movement, No rhonchi, No wheeze, No rales Cardiovascular: Regular rate, Regular Rhythm, Normal S1, Normal S2, No murmurs, - - Click from valve Abdomen: Soft, Non Tender, Non-Distended, No Hepato-splenomegaly Extremities: No edema, Capillary Refill Less than 3 Seconds Skin: No rashes, No breakdown Neurological: Neuro grossly intact, Sensory exam intact to light touch and pain Psych/Mental Status: Normal Affect, Appropriate - Physical Exam Vitals/I&O's: Vital Signs Temp Pulse Resp BP Pulse Ox 97.5 F L 64 14 124/77 H 95 07/20/19 08:00 07/20/19 08:00 07/20/19 08:00 07/20/19 08:00 07/20/19 08:00 Oxygen Delivery Method Room Air Weight: 93.621 kg Body Mass Index (BMI) 31.4 Finger Stick Blood Glucose 188 Intake and Output for Last 24 Hours 07/18/19 07/19/19 07/20/19 23:59 23:59 23:59 Intake Total 1000 / 1000 1350 / 1350 400 / 400 Output Total 2150 / 2150 700 / 700 Balance 1000 / 1000 -800 / -800 -300 / -300 Microbiology Past 72 Hours 07/18/19 16:55 Stool Stool Occult Blood (HESHAM) - Final Occult Blood Positive Laboratory Results 07/19/19 11:06: POC Glucose 115 H 07/19/19 16:04: POC Glucose 146 H 07/19/19 22:43: POC Glucose 107 07/20/19 06:36: PT 29.3 H, INR 2.8 07/20/19 06:36: WBC 5.8, RBC 4.50 L, Hgb 13.5, Hct 40.4, MCV 89.8, MCH 30.0, MCHC 33.4, RDW Std Deviation 45.3 H, RDW Coeff of Yessi 13.9, Plt Count 110 L, MPV 11.9, Immature Gran % (Auto) 0.300, Neut % (Auto) 52.4, Lymph % (Auto) 32.1, [place] % (Auto) 10.7 H, Eos % (Auto) 4.2, Baso % (Auto) 0.3, Absolute Neuts (auto) 3.0, Absolute Lymphs (auto) 1.85, Nucleated RBC % 0 07/20/19 06:36: Sodium 141, Potassium 4.3, Chloride 110 H, Carbon Dioxide 25.0, Anion Gap 6, BUN 19 H, Creatinine 1.39 H, Estim Creat Clear Calc 42.37, Est GFR (MDRD) Af Amer 64, Est GFR (MDRD) Non-Af 53 L, BUN/Creatinine Ratio 13.7, Glucose 116 H, Calcium 9.0 07/20/19 06:38: POC Glucose 116 H Current Medications Allopurinol (Zyloprim) 100 mg PO DAILYCM [facility] Last Admin: 07/19/19 08:23 Dose: 100 mg Documented by: Atorvastatin Calcium (Lipitor) 40 mg PO QHS [facility] Last Admin: 07/19/19 22:48 Dose: 40 mg Documented by: Budesonide (Pulmicort Aerosol) 0.5 mg INHALATION Q12H.RT [facility] Last Admin: 07/20/19 06:53 Dose: 0.5 mg Documented by: Divalproex Sodium (Depakote Er) 500 mg PO BID [facility] Last Admin: 07/19/19 22:48 Dose: 500 mg Documented by: Docusate Sodium (Colace) 100 mg PO BID [facility] Last Admin: 07/19/19 22:48 Dose: 100 mg Documented by: Fluticasone Propionate (Flonase Nasal [place]) 2 spray NASAL DAILY [facility] Last Admin: 07/19/19 08:20 Dose: 2 spray Documented by: Furosemide (Lasix) 10 mg PO QHS [facility] Last Admin: 07/19/19 22:47 Dose: 10 mg Documented by: Furosemide (Lasix) 30 mg PO DAILY [facility] Last Admin: 07/19/19 08:21 Dose: 30 mg Documented by: Glucagon () 1 mg IM .X1 PRN PRN Reason: Hypoglycemia Dextrose (Dextrose 10%-Water) 250 mls @ 999 mls/hr IV .Q16M PRN; Protocol PRN Reason: HYPOGLYCEMIA Insulin Human Lispro (Humalog Kwikpen (Bkc)) 0 unit SC ACHS [facility]; Protocol Last Admin: 07/20/19 06:39 Dose: Not Given Documented by: Levothyroxine Sodium (Synthroid) 50 mcg PO DAILY@0600 [facility] Last Admin: 07/20/19 06:36 Dose: 50 mcg Documented by: Metoprolol Succinate (Toprol Xl (Beta Damir)) 25 mg PO DAILY [facility] Last Admin: 07/19/19 08:23 Dose: 25 mg Documented by: Pantoprazole Sodium (Protonix) 20 mg PO BID [facility] Last Admin: 07/19/19 22:48 Dose: 20 mg Documented by: Polyethylene Glycol (Miralax) 17 gm PO DAILY [facility] Last Admin: 07/19/19 08:23 Dose: 17 gm Documented by: Potassium Chloride (K-Dur) 20 meq PO DAILY [facility] Last Admin: 07/19/19 08:23 Dose: 20 meq Documented by: Quetiapine Fumarate (Seroquel) 200 mg PO BID [facility] Last Admin: 07/19/19 22:48 Dose: 200 mg Documented by: Sodium Chloride () 10 - 40 ml IV UD PRN PRN Reason: SALINE FLUSH Last Admin: 07/18/19 20:17 Dose: 10 ml Documented by: Tolterodine Tartrate (Detrol La) 2 mg PO DAILY [facility] Last Admin: 07/19/19 08:21 Dose: 2 mg Documented by: Discharge Diet: Low fat/ Low Cholesterol, 2000 mg Sodium Diet Discharge Activity: Return to Normal Activity Home Medications: Medications to take at Discharge Allopurinol [Zyloprim] 100 mg PO DAILYCM 06/13/17 Aspirin E.C. [Ecotrin] 81 mg PO DAILY@0800 06/13/17 Atorvastatin Calcium [Lipitor] 40 mg PO DAILY 06/13/17 Divalproex Sodium [Depakote ER] 500 mg PO BID 06/13/17 Docusate Sodium [Colace] 100 mg PO BID 06/13/17 Fluticasone 110 Mcg [Flovent 110 Mcg] 1 puff INHALATION BID 06/13/17 Furosemide [Lasix] 10 mg PO QHS 06/13/17 Furosemide [Lasix] 30 mg PO DAILY 06/13/17 Nitroglycerin (INPATIENT USE) [Nitrostat] 0.4 mg SUBLINGUAL Q5M PRN 06/13/17 Omeprazole [Prilosec] 20 mg PO BID 06/13/17 Oxybutynin Chloride [Ditropan Xl] 5 mg PO DAILY 06/13/17 Polyethylene Glycol 3350 [Miralax] 17 gm PO DAILY 06/13/17 Quetiapine Fumarate [Seroquel] 200 mg PO BID 06/13/17 glipiZIDE [Glucotrol] 10 mg PO DAILY@0730 06/13/17 metFORMIN HCl [Glucophage] 500 mg PO BIDCM 06/13/17 Fluticasone 0.05% [Flonase Nasal [place]] 2 spray NASAL DAILY 07/18/19 Insulin Glargine,Hum.rec.anlog [Basaglar Kwikpen U-100] 16 unit SQ QHS 07/18/19 Levothyroxine Sodium 50 mcg PO DAILY 07/18/19 Metoprolol Succinate [Toprol Xl] 25 mg PO DAILY 07/18/19 Potassium Chloride [Klor-Con M20] 20 meq PO DAILY 07/18/19 Psyllium Husk [Reguloid] 0.4 mg PO DAILY 07/18/19 Sennosides [Senna] 8.6 mg PO BID PRN PRN 07/18/19 Warfarin [Coumadin] 3 mg PO DAILY #30 tab 07/20/19 Following Prescrptions Were Given to Patient: Warfarin [Coumadin] 3 mg PO DAILY #30 tab Prescription Printed Primary Care Physician: Fredrick Conway MD [Primary Care Provider] - Please follow up with your Primary Care Physician in: within 1 week Disposition: Home Minutes spent on discharge:: 40 Patient Condition:: Stable Medical Necessity - Tobacco Use Smoking Status: Former smoker Tobacco Use: Cigarettes Meaningful Use Info Meaningful Use Diagnoses (Choose all that apply): None applicable Code Visit OBSV E&M: 63977 Observation care discharge
== END 2019-07-20 10:45 | disposition home or self-care (01) ==
LOC: ED 16:17 → MS3 18:13
PROVIDERS: Admitting Provider Family Medicine; Emergency Provider Emergency Medicine; Family Provider Family Medicine; PCP Family Medicine; Referring Provider Family Medicine; Visit Provider Internal Medicine
DX: K62.5 Hemorrhage of anus and rectum (principal); E78.5 Hyperlipidemia, unspecified; J44.9 Chronic obstructive pulmonary disease, unspecified; I25.10 Atherosclerotic heart disease of native coronary artery without angina pectoris; K21.9 Gastro-esophageal reflux disease without esophagitis; N18.3 Chronic kidney disease, stage 3 (moderate); E11.22 Type 2 diabetes mellitus with diabetic chronic kidney disease; E03.9 Hypothyroidism, unspecified; I12.9 Hypertensive chronic kidney disease with stage 1 through stage 4 chronic kidney disease, or unspecified chronic kidney disease; F31.9 Bipolar disorder, unspecified; Z95.2 Presence of prosthetic heart valve; Z95.1 Presence of aortocoronary bypass graft; Z79.899 Other long term (current) drug therapy; Z79.84 Long term (current) use of oral hypoglycemic drugs; Z79.51 Long term (current) use of inhaled steroids; Z87.891 Personal history of nicotine dependence; Z86.73 Personal history of transient ischemic attack (TIA), and cerebral infarction without residual deficits; Z79.82 Long term (current) use of aspirin; M10.9 Gout, unspecified
CPT/HCPCS: 36415; 80048; 82274; 82962; 85025; 85610; 86850; 86900; 86901; 94640; 96360; 96361; 97162; 97166; 99218; 99285; J7030; A4216; G0378

== ENCOUNTER 2020-06-05 09:41 | Emergency (ER) | payer MEDICARE, MEDICAID, SELFPAY ==
[2019-07-18 19:12] VITALS: BMI 31.4
[2020-06-05 09:42] VITALS: BP 135/80; PULSE 97; RESP 19; TEMP 36.3; O2SAT 93; BMI 29.9
[2020-06-05 09:48] VITALS: BP 135/80; PULSE 97; RESP 19; TEMP 36.3; O2SAT 93
[2020-06-05 09:49] VITALS: O2SAT 92
--- NOTE | 2020-06-05 10:27 | EKG12_ITS ---
Test Reason : Blood Pressure : / mmHG Vent. Rate : 064 BPM Atrial Rate : 326 BPM P-R Int : 000 ms QRS Dur : 166 ms QT Int : 528 ms P-R-T Axes : 000 -63 099 degrees QTc Int : 544 ms Atrial flutter with variable A-V block Left axis deviation Left bundle branch block Abnormal ECG Confirmed by EVER RESENDEZ, SATINDER ([id number]), business editor MANFRED CASILLAS ([id number]) on 06/09/2020 8:40:20 AM Referred By: CARY Confirmed By:SATINDER CURTIS MD
--- NOTE | 2020-06-05 10:28 | ED.VISSUMM ---
- ER Visit Summary Date of Service: 06/05/20 Chief Complaint: Coughing up blood History of Present Illness: The patient is a 79 M on Coumadin secondary to prosthetic mechanical valve and prior DVT. Also history of A. fib, stroke, CAD, COPD, diabetes and prior GI bleed. Patient states that he has been coughing up blood intermittently small clots the last 4 days. He denies any shortness of breath or chest pain. He denies any fever or chills. Said he does not feel bad. States this happened one other time without any specific diagnosis after work-up. Has been recently hospitalized at [facility] and states he was cardioverted there secondary to his A. fib. He denies any nausea, vomiting, diarrhea or fever. He denies any significant cough. Physical Examination: Older male no acute distress vital signs stable afebrile. Pulse ox 93% on room air no signs of hypoxia. H EENT exam unremarkable. Neck nontender. Lungs clear to auscultation bilaterally. Heart irregular mechanical valve click. Rate about 95. Abdomen soft nontender normal bowel sounds no peritoneal signs. Moving all 4 extremities. Neurovascular intact. Calves are nontender without edema or cords. Neurologically is awake and alert with no focal motor deficits. Test Results: Chest x-ray shows chronic changes no acute process status post prosthetic valve. EKG atrial flutter rate of 64 with a left bundle branch block. CBC shows a white count of 5. Hemoglobin 11 previously was 13. Chemistries unremarkable except BUN 26 creatinine 2.14 worsening renal insufficiency prior 1.7. Gap normal. Patient is on Coumadin INR is subtherapeutic at 1 D-dimer 0.36 Emergency Department Course and Treatment: Patient be worked up for hemoptysis. Chest x-ray, labs, INR and D-dimer. Clinically looks well. Differential includes PE, respiratory infection, hemoptysis from Coumadin versus other etiologies. Repeat exam patient is doing well at 11:37 AM. No complaints. He had I went over his test results with all of the specific cause for his hemoptysis. He knows his Coumadin currently is subtherapeutic. I cannot do a CTA due to his creatinine being 2.1. Patient is comfortable being discharged home with outpatient follow-up. He tells me he previously had a CAT scan of his chest. Treatment Plan: Discharged with outpatient follow-up with his primary care physician. Disposition: Discharge Impression: Acute hemoptysis of uncertain etiology Subtherapeutic anticoagulation History of prosthetic heart valve History of A. fib History of CVAs CAD and COPD History of diabetes This note was generated with [employer] dictation software. It may contain incorrect words, spelling, and punctuation that were not noted in review of the chart prior to signing ED Disposition - Plan for ED Patient: Referrals: Fredrick Conway MD [Primary Care Provider] -
[2020-06-05 10:39] LABS: Absolute Lymphocyte Count 1.57 X10^3/uL (0.83-4.51); Absolute Neutrophil Count 3.5 X10^3/uL (2.0-7.7); Basophil# 0.03 X10^3/uL; Basophil% 0.5 % (0-1); Eosinophil# 0.19 X10^3/uL; Eosinophils% 3.3 % (0-5); Hematocrit 37.1 % (40-54); Hemoglobin 11.7 g/dL (13.0-16.5); Lymphocyte # 1.57 X10^3/ul (4.0); Lymphocyte % 27.5 % (19-41); Mean Corp Hgb Conc 31.5 g/dL (32-36); Mean Corpuscular Hgb 30.1 pg (27.0-32.0); Mean Corpuscular Volume 95.4 fL (80-94); Monocyte# 0.43 X10^3/uL; Monocyte% 7.5 % (0-10); NRBC Flagged by Analyzer 0 % (0-5); Neutrophil # 3.46 X10^3/uL (2.7-7.7); Neutrophil % 60.8 % (47-70); Platelet Count 137 K/mm3 (150-450); RBC Distribution Width CV 15.3 % (11.6-14.6); RBC Distribution Width SD 53.1 fl (35.1-43.9); Red Blood Count 3.89 M/mm3 (4.6-6.2); White Blood Count 5.7 K/mm3 (4.4-11.0)
--- NOTE | 2020-06-05 10:40 | RAD_ITS ---
STUDY: X-RAY CHEST REASON FOR EXAM: Male, 79 years old. COUGH, SOB TECHNIQUE: Single AP portable view of the chest. COMPARISON: Comparison is made with prior study 04/13/2015. FINDINGS: EKG electrodes are seen. Stable mild increased markings at the lung bases likely more prominent on the left side suggestive of scarring. There is no demonstrated pleural abnormality. The patient is status post mitral valve replacement. Mild cardiomegaly. Normal mediastinum and roberth. Normal visualized pulmonary arteries. There is atherosclerotic tortuosity of the aortic arch and descending thoracic aorta. There are diffuse degenerative changes of the visualized thoracic spine. Normal visualized ribs, clavicles, and shoulders. There is no demonstrated abnormality of the visualized soft tissue structures of the upper abdomen. RAD/Chest 1 View (Portable) IMPRESSION: Mild cardiomegaly. Status post mitral valve replacement. Stable mild increased markings at the lung bases suggestive of a mild scarring. Electronically Signed: Cyrus Saeed, at 11:18 EST , Service support ,
[2020-06-05 10:48] LABS: Anion Gap 7 (5-15); BUN 26 mg/dL (7-18); BUN/Creat Ratio 12.1 RATIO (10-20); Calcium,Total 8.9 mg/dL (8.5-10.1); Chloride 107 mmol/L (98-107); Creatinine, Serum 2.14 mg/dL (0.70-1.30); EST Glomerular Filtration Rate 32 mL/min (>60); Est Glom Filt Rate - Afr Amer 39 mL/min (>60); Estimated Creatinine Clearance 28.45 ml/min; Glucose 226 mg/dL (74-106); Potassium 4.5 mmol/L (3.5-5.1); Sodium Level 138 mmol/L (136-145)
[2020-06-05 10:51] LABS: International Normalized Ratio 1.3; Prothrombin Time (Protime)PT. 15.9 SECONDS (11.7-14.9)
[2020-06-05 10:54] LABS: D-Dimer Quantitative (DVT/PE) 0.36 FEU/ug/m (0.27-0.49)
--- NOTE | 2020-06-05 12:19 | ED.DEP ---
ED Disposition - Plan for ED Patient: Disposition: Home or Assisted Living Instructions: ED Hemoptysis Referrals: Fredrick Conway MD [Primary Care Provider] - As soon as possible Additional Instructions: No cause for your coughing up blood. You will need to follow-up with your doctor for further evaluation. Make sure you are taking your Coumadin as prescribed. Return if a lot worse bleeding.
[2020-06-05 12:44] VITALS: BP 124/82; PULSE 76; RESP 20; O2SAT 96
--- NOTE | 2020-06-05 15:07 | ED.RN ---
[facility] here for pt. RN wheeled to vehicle.
== END 2020-06-05 15:08 | disposition home or self-care (01) ==
PROVIDERS: Emergency Provider Emergency Medicine; PCP Family Medicine
DX: R04.2 Hemoptysis (principal); R79.1 Abnormal coagulation profile; I48.91 Unspecified atrial fibrillation; J44.9 Chronic obstructive pulmonary disease, unspecified; I25.10 Atherosclerotic heart disease of native coronary artery without angina pectoris; E11.9 Type 2 diabetes mellitus without complications; Z86.73 Personal history of transient ischemic attack (TIA), and cerebral infarction without residual deficits; Z79.01 Long term (current) use of anticoagulants; Z95.2 Presence of prosthetic heart valve; Z86.718 Personal history of other venous thrombosis and embolism; Z79.51 Long term (current) use of inhaled steroids; Z79.899 Other long term (current) drug therapy; Z79.4 Long term (current) use of insulin
CPT/HCPCS: 71045; 80048; 85025; 85379; 85610; 93005; 99285; A4216

== ENCOUNTER 2020-08-22 14:54 | Emergency (ER) | payer MEDICARE, MEDICAID, SELFPAY ==
[2020-08-22] VITALS (9 sets, daily range): BP systolic 98–136; BP diastolic 63–77; PULSE 56–80; RESP 18–33; TEMP 36.1; O2SAT 82–98; BMI 29.4
--- NOTE | 2020-08-22 15:25 | EKG12_ITS ---
Test Reason : COUGH Blood Pressure : / mmHG Vent. Rate : 062 BPM Atrial Rate : 357 BPM P-R Int : 000 ms QRS Dur : 178 ms QT Int : 390 ms P-R-T Axes : 000 -64 125 degrees QTc Int : 395 ms Atrial fibrillation Left axis deviation Left bundle branch block Abnormal ECG Confirmed by EVER RESENDEZ, SATINDER ([id number]), offline editor MANFRED CASILLAS ([id number]) on 08/24/2020 1:06:24 PM Referred By: DC Confirmed By:SATINDER CURTIS MD
--- NOTE | 2020-08-22 15:28 | ED.VISSUMM ---
- ER Visit Summary Date of Service: 08/22/20 Chief Complaint: Coughing up blood History of Present Illness: The patient is a 80 M who presents from his facility for coughing up blood today. He has a history of stroke, COPD, diabetes, hyperlipidemia, GI bleed, and cardiac valve replacement. He is on Coumadin. He had similar symptoms in the past. His work-up was unremarkable and he was discharged home. He was doing well since, and then started coughing up blood today. One episode. It was a clot the size of a $0.50 piece, bright red blood. No fevers. No change in taste or smell. No sputum. No chest pain. No other bleeding or complaints. Physical Examination: Afebrile and vital signs unremarkable. Patient is pale with psychomotor slowing and depressed mood and affect. He has some mild dysarthria which she says is not new. Heart is irregular. Lungs are clear. Abdomen is soft. Test Results: EKG, labs, imaging pending. Emergency Department Course and Treatment: Patient was placed on the monitor. He is on 2 L of oxygen by nasal cannula. He was given a 500cc NS bolus. Hemoglobin 9.5. This has decreased about 2 points of the past 2 months. Creatinine slightly elevated from his baseline, 3.62. Glucose 127, INR greater than 19.5. Troponin normal. Patient refused Covid testing. He had one earlier today at his facility it was negative. His chest x-ray showed chronic changes, edema, congestion. Patient continued on nasal cannula oxygen. We did try him on room air he dropped to 82%. He was resumed on 4 L of nasal cannula and was 96%. He appeared comfortable, no evidence of shortness of breath or distress. He had no further bleeding in the ED. Patient was treated with vitamin K. Because his bleeding had stopped, we did not administer FFP or PCC. I spoke with the hospitalist here. We do not have pulmonary coverage or interventional coverage over the weekend. She is requesting transfer. Patient requested [facility]. They requested that we treat the patient with vitamin K and recheck his INR. If it is less than 3, he may be admitted to their facility on the general medical floor. I am concerned that the patient may deteriorate at this facility, and that I have no ability to appropriately care for him. His second choice was [facility]. They did accept the patient. The ground transfer was about 2 hours. [facility] requested a faster transport, but none of the aeromedical services were flying today. He will be monitored here in the ED while awaiting transfer by ground. At the time of this dictation, he is stable. Treatment Plan: As above Disposition: Transfer Impression: Hemoptysis, supratherapeutic INR, hypoxia, CKD, anemia This note was generated with [employer] dictation software. It may contain incorrect words, spelling, and punctuation that were not noted in review of the chart prior to signing ED Disposition - Plan for ED Patient: Referrals: Fredrick Conway MD [Primary Care Provider] -
[2020-08-22 16:56] LABS: Basophil# 0.03 X10^3/uL; Basophil% 0.3 % (0-1); Eosinophil# 0.03 X10^3/uL; Eosinophils% 0.3 % (0-5); Hematocrit 30.8 % (40-54); Hemoglobin 9.5 g/dL (13.0-16.5); Lymphocyte % 19.4 % (19-41); Mean Corp Hgb Conc 30.8 g/dL (32-36); Mean Corpuscular Hgb 27.9 pg (27.0-32.0); Mean Corpuscular Volume 90.3 fL (80-94); Mean Platelet Vol. 11.1 fl (6.2-12.0); Monocyte# 0.76 X10^3/uL; Monocyte% 7.8 % (0-10); NRBC Flagged by Analyzer 0 % (0-5); Neutrophil # 7.03 X10^3/uL (2.7-7.7); Neutrophil % 71.7 % (47-70); Platelet Count 222 K/mm3 (150-450); RBC Distribution Width CV 17.9 % (11.6-14.6); RBC Distribution Width SD 58.2 fl (35.1-43.9); Red Blood Count 3.41 M/mm3 (4.6-6.2); White Blood Count 9.8 K/mm3 (4.4-11.0)
--- NOTE | 2020-08-22 17:00 | RAD_ITS ---
STUDY: X-RAY CHEST REASON FOR EXAM: Male, 80 years old. coughing up blood clots TECHNIQUE: AP COMPARISON: 06/05/2020 FINDINGS: EKG leads project over the chest. Central pulmonary vascular congestion with multifocal interstitial and groundglass opacities have developed since the prior study. No sizable effusion. There is moderate cardiac enlargement. Aortic valve replacement noted. Normal mediastinum and roberth. There is prominence of the pulmonary hilar arteries and peripheral pulmonary arteries, consistent with congestive heart failure (CHF). Normal visualized aortic arch and descending thoracic aorta. There is demineralization of the osseous structures. Normal visualized ribs, clavicles, and shoulders. There is no demonstrated abnormality of the visualized soft tissue structures of the upper abdomen. RAD/Chest 1 View (Portable) IMPRESSION: CHF with interstitial edema and vascular congestion. No sizable effusion. Pneumonia is also the differential diagnosis. Electronically Signed: Irvin Palacios MD ([place]) at 17:15 EST , Service support ,
[2020-08-22 17:17] LABS: Anion Gap 7 (5-15); BUN 52 mg/dL (7-18); BUN/Creat Ratio 14.4 RATIO (10-20); Chloride 99 mmol/L (98-107); Creatinine, Serum 3.62 mg/dL (0.70-1.30); EST Glomerular Filtration Rate 17 mL/min (>60); Est Glom Filt Rate - Afr Amer 21 mL/min (>60); Estimated Creatinine Clearance 16.01 ml/min; Glucose 127 mg/dL (74-106); Potassium 4.7 mmol/L (3.5-5.1); Sodium Level 136 mmol/L (136-145)
[2020-08-22 17:41] LABS: Prothrombin Time (Protime)PT. > 120.0 SECONDS (11.7-14.9)
[2020-08-22 17:42] LABS: International Normalized Ratio > 19.5
[2020-08-22 18:01] LABS: BNP,B-Type NATRIURETIC PEPTIDE 369.2 pg/mL (0-100)
--- NOTE | 2020-08-22 18:01 | NURSING ---
CALLED [facility] FOR TRANSFER. TALKED TO YOBANI
[2020-08-23 00:20] VITALS: BP 128/75; PULSE 70; RESP 29; O2SAT 95
[2020-08-23 00:48] VITALS: RESP 26
== END 2020-08-23 00:49 | disposition short-term general hospital (02) ==
PROVIDERS: Emergency Provider Emergency Medicine; PCP Family Medicine
DX: R04.2 Hemoptysis (principal); R09.02 Hypoxemia; R79.1 Abnormal coagulation profile; N18.9 Chronic kidney disease, unspecified; D63.1 Anemia in chronic kidney disease; E11.22 Type 2 diabetes mellitus with diabetic chronic kidney disease; E78.5 Hyperlipidemia, unspecified; J44.0 Chronic obstructive pulmonary disease with (acute) lower respiratory infection; Z86.73 Personal history of transient ischemic attack (TIA), and cerebral infarction without residual deficits; Z79.01 Long term (current) use of anticoagulants; Z87.891 Personal history of nicotine dependence; Z79.51 Long term (current) use of inhaled steroids; Z79.4 Long term (current) use of insulin
CPT/HCPCS: 71045; 80048; 83880; 84484; 85025; 85610; 87426; 93005; 96361; 96365; 99285; J7040; J7050; A4216; J3490

== ENCOUNTER 2020-09-01 06:04 | Inpatient (IN) | payer MEDICARE, MEDICAID, SELFPAY ==
[2020-08-22 14:55] VITALS: BMI 29.4
[2020-09-01] VITALS (12 sets, daily range): BP systolic 95–144; BP diastolic 68–103; PULSE 54–101; RESP 16–28; TEMP 35.9–36.4; O2SAT 94–100; BMI 29.7; BMI 29.8
--- NOTE | 2020-09-01 06:29 | ED.VIS.GEN ---
History of Present Illness Chief Complaint: Complaint Narrative: This patient is a 80-year-old male who presents with gross hematuria. This just began this morning. He developed blood in his urine and then is having gross bleeding from his urethra with multiple clots. He states he feels like he needs to urinate and complains of suprapubic abdominal pain and pressure. He is on warfarin. He has a history of an aortic valve replacement. Last month he was seen in our emergency department for hemoptysis and his INR was greater than the upper limit of measurable. He was given vitamin K. He was transferred to [facility]. He states they are not sure why his INR got so high. However his symptoms improved. His hemoptysis had resolved. He otherwise denies any recent illness such as fever cough chest pain difficulty breathing vomiting diarrhea. Past Medical History - Allergies and Home Meds Allergies/Adverse Reactions: Allergies ticagrelor [From Brilinta] Allergy (Verified 09/01/20 06:08) WEAKNESS Primary Care Physician: Fredrick Conway MD [Primary Care Provider] - Past Medical History: - - COPD, stroke, aortic valve replacement, diabetes, hyperlipidemia Surgical History: cholecystectomy, - - Bladder resection and aortic valve replacement Smoking Status: Former smoker - Family History Maternal Family History: Reports: Unknown - He does not know any biological history of either parent as he was raised in an orphanage Review of Systems All systems negative except as indicated General: Denies: Fever Eyes: Denies: Visual changes - bilaterally ENT: Denies: Bilateral ear pain Cardiovascular: Denies: Chest pain Respiratory: Denies: Dyspnea Gastrointestinal: Reports: Abdominal pain. Denies: Nausea, Vomiting, Diarrhea Genitourinary: Reports: Hematuria Musculoskeletal: Denies: Myalgias, Arthralgias Skin: Denies: Rash Neurological: Denies: Headache Hematologic: Reports: Easy bruising, Easy bleeding Allergy: Denies: Uticaria Physical Exam Vital Signs/Narrative: Vital Signs Temp Pulse Resp BP Pulse Ox 09/01/20 06:05 96.6 F L 96 16 140/103 H 100 Inital Vital Signs reviewed: Yes General: Well nourished Head: Normocephalic Eyes: EOMI ENT: Moist mucous membranes Neck: Supple Cardiovascular: Regular rate, Regular rhythm Respiratory: No distress, CTA bilaterally Abdomen: Soft, Tender - Suprapubic abdominal tenderness without guarding without rebound : - - Gross blood in the patient's adult diaper, multiple small clots Skin: Pallor Neurological: Alert Psychological: Normal affect Diagnostic/Tx/Re-eval Laboratory Results 09/01/20 09/01/20 09/01/20 06:50 06:50 06:56 WBC 8.5 RBC 3.11 L Hgb 8.6 L Hct 28.4 L MCV 91.3 MCH 27.7 MCHC 30.3 L RDW Std Deviation 60.4 H RDW Coeff of Yessi 18.6 H Plt Count 339 MPV 10.9 Immature Gran % (Auto) 0.400 Neut % (Auto) 73.3 H Lymph % (Auto) 18.1 L [place] % (Auto) 6.7 Eos % (Auto) 0.8 Baso % (Auto) 0.7 Absolute Neuts (auto) 6.3 Absolute Lymphs (auto) 1.54 Nucleated RBC % 0 PT 39.9 H INR 4.1 H* Sodium 135 L Potassium 4.9 Chloride 100 Carbon Dioxide 30.0 Anion Gap 5 BUN 59 H Creatinine 2.81 H Estim Creat Clear Calc 20.62 Est GFR (MDRD) Af Amer 28 L Est GFR (MDRD) Non-Af 23 L BUN/Creatinine Ratio 21.0 H Glucose 141 H Calcium 9.4 - Medical Decision Making Labs notable for supratherapeutic INR at 4.1, creatinine is 2.8. Hemoglobin at this time is 8.6 although on review of prior labs this has been downtrending since June. A three-way Byers catheter was placed. Patient was manually irrigated. He is not having any more clots but continues to have grossly bloody urine. He was started on continuous bladder irrigation. I spoke to the urologist, Dr. Roblero. He agrees to admit. ED Disposition - Plan for ED Patient: Disposition: Acute Care Hospital [facility] Diagnosis: Gross hematuria, Supratherapeutic INR Referrals: Fredrick Conway MD [Primary Care Provider] -
[2020-09-01 06:55] LABS: Absolute Lymphocyte Count 1.54 X10^3/uL (0.83-4.51); Absolute Neutrophil Count 6.3 X10^3/uL (2.0-7.7); Basophil# 0.06 X10^3/uL; Basophil% 0.7 % (0-1); Eosinophil# 0.07 X10^3/uL; Eosinophils% 0.8 % (0-5); Hematocrit 28.4 % (40-54); Hemoglobin 8.6 g/dL (13.0-16.5); Lymphocyte # 1.54 X10^3/ul (4.0); Lymphocyte % 18.1 % (19-41); Mean Corp Hgb Conc 30.3 g/dL (32-36); Mean Corpuscular Hgb 27.7 pg (27.0-32.0); Mean Corpuscular Volume 91.3 fL (80-94); Mean Platelet Vol. 10.9 fl (6.2-12.0); Monocyte# 0.57 X10^3/uL; Monocyte% 6.7 % (0-10); NRBC Flagged by Analyzer 0 % (0-5); Neutrophil # 6.25 X10^3/uL (2.7-7.7); Neutrophil % 73.3 % (47-70); Platelet Count 339 K/mm3 (150-450); RBC Distribution Width CV 18.6 % (11.6-14.6); RBC Distribution Width SD 60.4 fl (35.1-43.9); Red Blood Count 3.11 M/mm3 (4.6-6.2); White Blood Count 8.5 K/mm3 (4.4-11.0)
[2020-09-01 07:07] LABS: Prothrombin Time (Protime)PT. 39.9 SECONDS (11.7-14.9)
[2020-09-01 07:12] LABS: Anion Gap 5 (5-15); BUN 59 mg/dL (7-18); Calcium,Total 9.4 mg/dL (8.5-10.1); Chloride 100 mmol/L (98-107); Creatinine, Serum 2.81 mg/dL (0.70-1.30); EST Glomerular Filtration Rate 23 mL/min (>60); Est Glom Filt Rate - Afr Amer 28 mL/min (>60); Estimated Creatinine Clearance 20.62 ml/min; Glucose 141 mg/dL (74-106); Potassium 4.9 mmol/L (3.5-5.1); Sodium Level 135 mmol/L (136-145)
[2020-09-01 07:18] LABS: International Normalized Ratio 4.1
--- NOTE | 2020-09-01 07:45 | NURSING ---
MED SURG SUDHAKAR GROSS HEMATURIA, SUPRATHERAPEUTIC INR
--- NOTE | 2020-09-01 07:51 | HP.PCM_ITS ---
Problem List (1) Gross hematuria Status: Acute History of Present Illness Date of Admission: 09/01/20 Chief Complaint: Gross hematuria The patient is a 80 year old male who has a history of enlarged prostate. Presented to the emergency room with gross hematuria he is on Coumadin and his INR was supratherapeutic. He was started on continuous irrigation with lots of clots and heavy bleeding, gross hematuria. Has a history of an aortic valve replacement in the past. Past Medical History Past Medical History (Chronic Problems): Chronic Problems Acute cerebrovascular accident (Chronic) CAD (coronary artery disease) (Chronic) mechanical prosthetic aortic valve replacement (Chronic) Hyperlipidemia (Chronic) DM type 2 (diabetes mellitus, type 2) (Chronic) Chronic obstructive lung disease (Chronic) Allergies ticagrelor [From Brilinta] Allergy (Verified 09/01/20 06:08) WEAKNESS Home Medications: Ambulatory Orders Medication Instructions Recorded Albuterol Aerosols [Ventolin 2.5 mg INHALATION 4X/DAY 06/05/20 Aerosols] Allopurinol [Zyloprim] 100 mg PO DAILYCM 06/05/20 Amiodarone HCl 200 mg PO DAILY 06/05/20 Atorvastatin Calcium [Lipitor] 80 mg PO QHS 06/05/20 Budesonide Aerosol [Pulmicort 0.5 mg INHALATION BID 06/05/20 Aerosol] Bumetanide 2.5 mg PO BID 06/05/20 Clopidogrel Bisulfate [Plavix] 75 mg PO DAILY 06/05/20 Divalproex Sodium 500 mg PO BID 06/05/20 Fluticasone 110 Mcg [Flovent (SP)] 1 puff INHALATION BID 06/05/20 Insulin Glargine,Hum.rec.anlog 14 unit SC QHS 06/05/20 [Basaglar Kwikpen U-100] Levothyroxine [Synthroid] 50 mcg PO DAILY 06/05/20 Metformin HCl [Glucophage] 500 mg PO BID 06/05/20 Metoprolol(XL)Succ [Toprol Xl 50 mg PO DAILY 06/05/20 (Beta Damir)] Omeprazole 20 mg PO BID 06/05/20 Oxybutynin [Ditropan] 5 mg PO DAILY 06/05/20 Potassium Chloride [Klor-Con] 20 meq PO DAILY 06/05/20 Quetiapine Fumarate [Seroquel] 100 mg PO BID 06/05/20 Acetaminophen [Tylenol Extra 1,000 mg PO Q8H PRN 08/22/20 Strength] Albuterol IH (ProAir) [Proair Hfa 1 puff INHALATION Q4H PRN PRN 08/22/20 (SP)Vent Pts] Aspirin [Aspirin, Baby] 81 mg PO DAILY@0800 08/22/20 Docusate Sodium 100 mg PO BID 08/22/20 Nitroglycerin SL (ED ONLY) 0.4 mg SUBLINGUAL PRN PRN 08/22/20 [Nitrostat] Senna [Senokot] 1 tab PO DAILY 08/22/20 Warfarin [Coumadin (PBKC)] 4.5 mg PO DAILY 08/22/20 Mag Hydrox/Aluminum Hyd/Simeth 30 ml PO Q4H PRN PRN 09/01/20 [Mag-Alum Hydroxide-Simeth Susp] Magnesium Hydroxide [Milk Of 30 ml PO DAILY PRN PRN 09/01/20 Magnesia] Spironolactone 25 mg PO DAILY 09/01/20 Surgical History: cholecystectomy, - - Bladder resection and aortic valve replacement Psychiatric History: Bipolar Lives: Alone Smoking Status: Former smoker Tobacco Use: Non-smoker Alcohol: None Drugs: None - *Family History Maternal History Items: Unknown - He does not know any biological history of either parent as he was raised in an orphanage Review of Systems Constitutional: Denies: Chills, Fever, Weight Change HEENT: Denies: Head Aches, Sinus Congestion, Sinus Drainage Cardiovascular: Denies: Chest Pain, Palpitations Respiratory: Denies: Cough, Shortness of breath at rest, Sputum production Gastrointestinal: Denies: Abdominal Pain, Nausea, Vomiting Genitourinary: Reports: Dysuria, Hematuria Musculoskeletal: Denies: Joint Pain, Joint Tenderness Skin: Denies: Rash, Wounds Neurological: Denies: Numbness, Tingling, Focal weakness Psychiatric: Denies: Anxiety, Depression, Homicidal Ideations, Suicidal Ideations Hematologic/ Lymphatic: Denies: Easy Bruising, Easy Bleeding VTE Information - Inpt Only VTE Present on Admission: No Patient Problems: Active and Suspected Problems Supratherapeutic INR (Acute) Gross hematuria (Acute) - Physical Exam Vitals/I&O's: Vital Signs Temp Pulse Resp BP Pulse Ox 96.6 F L 96 16 140/103 H 100 09/01/20 06:05 09/01/20 06:05 09/01/20 06:05 09/01/20 06:05 09/01/20 06:05 Oxygen Flow Rate (L/min) 2 Oxygen Delivery Method Nasal Cannula Weight: 88.6 kg Body Mass Index (BMI) 29.7 Finger Stick Blood Glucose 188 General: Alert, Oriented x3, Cooperative HEENT: Atraumatic, PERRLA, EOMI, Normocephalic Neck: Supple, No JVD, Negative Carotid Bruits Lungs: Clear to auscultation, Normal air movement Cardiovascular: Regular rate, No murmurs Abdomen: Bowel Sounds Present, Soft, Non Tender Extremities: No edema, Capillary Refill Less than 3 Seconds Skin: No rashes, No breakdown Musculoskeletal: No Tenderness to Palpation of Joints or Extremities Neurological: Cranial nerves II-XII grossly intact Psych/Mental Status: Normal Affect, Appropriate Laboratory Results 09/01/20 06:50: PT 39.9 H, INR 4.1 H* 09/01/20 06:50: Sodium 135 L, Potassium 4.9, Chloride 100, Carbon Dioxide 30.0, Anion Gap 5, BUN 59 H, Creatinine 2.81 H, Estim Creat Clear Calc 20.62, Est GFR (MDRD) Af Amer 28 L, Est GFR (MDRD) Non-Af 23 L, BUN/Creatinine Ratio 21.0 H, Glucose 141 H, Calcium 9.4 09/01/20 06:50: Blood Type Pending, Antibody Screen Pending 09/01/20 06:56: WBC 8.5, RBC 3.11 L, Hgb 8.6 L, Hct 28.4 L, MCV 91.3, MCH 27.7, MCHC 30.3 L, RDW Std Deviation 60.4 H, RDW Coeff of Yessi 18.6 H, Plt Count 339, MPV 10.9, Immature Gran % (Auto) 0.400, Neut % (Auto) 73.3 H, Lymph % (Auto) 18.1 L, [place] % (Auto) 6.7, Eos % (Auto) 0.8, Baso % (Auto) 0.7, Absolute Neuts (auto) 6.3, Absolute Lymphs (auto) 1.54, Nucleated RBC % 0 Assessment/Plan All Active Problems GI bleed (Acute) Supratherapeutic INR (Acute) Gross hematuria (Acute) Anticoagulation goal of INR 2.5 to 3.5 (Acute) Facial droop (Acute) 80-year-old male presents with gross hematuria to be admitted to the hospital for continuous bladder irrigation once the bleeding stops prior to taken to the operating room to find the source of the bleeding will do a CAT scan on admission.
--- NOTE | 2020-09-01 08:02 | ED.RN ---
1500ml output in bag before cbi, 600 ml intake from cbi and 450 ml output from cbi when pt was transferred up to the floor.
[2020-09-01] MEDS: oxyCODONE 5 MG Tablet PO ×3 (08:52→22:17)
[2020-09-01] MEDS: Pantoprazole Sodium 20 MG Tablet PO ×2 (08:53→22:14)
[2020-09-01] MEDS: Amiodarone 200 MG Tablet PO (08:53)
[2020-09-01] MEDS: Spironolactone 25 MG Tablet PO (08:53)
[2020-09-01] MEDS: Allopurinol 100 MG Tablet PO (09:31)
[2020-09-01] MEDS: Senna Tablet 1 TABLET PO (09:32)
[2020-09-01] MEDS: Docusate Sodium 100 MG Capsule PO ×2 (09:32→22:13)
[2020-09-01] MEDS: Bumetanide 0.5 MG Tablet PO ×2 (09:32→16:50)
[2020-09-01] MEDS: Bumetanide 2 MG Tablet PO ×2 (09:32→16:50)
[2020-09-01] MEDS: Levothyroxine 50 MCG Tablet PO (09:32)
[2020-09-01] MEDS: QUEtiapine 100 MG Tablet PO ×2 (09:32→22:14)
[2020-09-01] MEDS: Metoprolol(XL)Succ 50 MG Tablet PO (09:33)
[2020-09-01] MEDS: Budesonide Respules 0.5 MG/2 ML AMPUL.NEB. INHALATION ×2 (10:24→19:28)
[2020-09-01] MEDS: Albuterol 2.5 MG/3 ML VIAL.NEB. INHALATION (10:24)
[2020-09-01] MEDS: Ciprofloxacin 400 MG/200 ML BAG 200 MG IV (10:33)
[2020-09-01] MEDS: Divalproex Sodium 250 MG Tablet 500 MG PO ×2 (10:33→22:14)
[2020-09-01] MEDS: 0.9% Saline Lock 10 ML Syringe IV ×3 (10:38→19:53)
[2020-09-01] MEDS: Insulin Lispro 100 UNIT/ML INSULN.PEN SC ×3 (10:44→22:31)
--- NOTE | 2020-09-01 10:46 | RAD_ITS ---
STUDY: X-RAY CHEST REASON FOR EXAM: Male, 80 years old. Dyspnea TECHNIQUE: Single AP portable view of the chest. COMPARISON: Comparison is made with prior study dated 08/22/2020. FINDINGS: Mild degree of vascular congestion although this has improved as compared to prior study. Blunting of both costophrenic angles. Aortic valve replacement. Moderate cardiomegaly. Normal mediastinum and roberth. Normal visualized pulmonary arteries. There is atherosclerotic calcification of the aortic arch with tortuosity. There are diffuse degenerative changes of the visualized thoracic spine. Normal visualized ribs, clavicles, and shoulders. There is no demonstrated abnormality of the visualized soft tissue structures of the upper abdomen. RAD/Chest 1 View (Portable) IMPRESSION: Cardiomegaly. Status post aortic valve replacement. Mild degree of vascular congestion. Electronically Signed: Cyrus Saeed MD at 11:57 EST , Service support ,
[2020-09-01 11:05] LABS: Bedside Glucose 189 mg/dL (70-110)
--- NOTE | 2020-09-01 11:35 | CASEMGMT ---
Addendum entered by Sharmila Castro 09/01/20 15:30: DARRON faxed updated clinicals to [facility]. Addendum entered by Sharmila Castro 09/01/20 13:06: DARRON in to speak with pt. SW introduced self and role at [facility]. Pt is alert and orientated. Pt confirms he came from [facility], confirms he has only been there for a few days, plans to return at discharge. Plan: Return to [facility] once medically cleared Original Note: Social Work Note Pt is new admission today. DARRON reviewed chart. Pt is listed as being from [facility]. DARRON placed a call to Jackie at [facility]. Jackie states pt was just admitted to [facility] a few days, is able to return when medically cleared. Pt will need COVID test to return. SW to fax updated clinicals. Sharmila Castro [employer] OPERATOR, [employer]
[2020-09-01 12:45] LABS: BNP,B-Type NATRIURETIC PEPTIDE 365.1 pg/mL (0-100)
--- NOTE | 2020-09-01 12:48 | CT_ITS ---
STUDY: CT ABDOMEN AND PELVIS WITHOUT CONTRAST REASON FOR EXAM: Male, 80 years old. GROSS HEMATURIA-LOTS OF CLOTS, CONSTANT BLADDER IRRIGATION, HTN, DB, SURG-MAXIMO RADIATION DOSAGE (If Supplied By Facility): CTDIvol = ( 21.13 ) mGy, DLP = ( 993.37 ) mGycm TECHNIQUE: Transaxial images were obtained from the dome of the diaphragm to the symphysis pubis without oral contrast, and without intravenous contrast. Sagittal and coronal images were reconstructed. Individualized dose optimization techniques were used for this CT. COMPARISON: None. FINDINGS: Small bilateral pleural effusions with bibasilar atelectasis and/or infiltrate. Coronary artery calcification. Normal liver. There are surgical clips in the gallbladder fossa consistent with a prior cholecystectomy. There are multiple benign calcified granulomata of the spleen. Normal pancreas. Normal bilateral adrenal glands. Normal right kidney. Normal left kidney. Normal visualized stomach. Normal small intestine. Normal colon. The appendix is visualized and appears normal. There is diffuse atherosclerotic calcification of the abdominal aorta and its major visceral branches, without a demonstrated aneurysm. Normal inferior vena cava. There is borderline retroperitoneal lymphadenopathy with enlarged nodes no greater than 10mm in the short axis diameter. A AVITIA catheter is seen within the urinary bladder. There is evidence of diffuse bladder wall thickening. Increased density is seen at the bladder base most likely representing blood. There is enlargement of the prostate gland. It measures 4.9 cm x 6.1 cm. Normal abdominal wall. There are degenerative changes of the visualized lumbar spine. CT/Abdomen/Pelvis without Cont IMPRESSION: Diffuse bladder wall thickening with findings suggestive of the blood within the dependent portion of the urinary bladder. Prostatic enlargement. Bilateral pleural effusions with bibasilar atelectasis and/or infiltration. Electronically Signed: Cyrus Saeed MD at 14:33 EST , Service support ,
[2020-09-01] MEDS: Glucerna Shake 120 ML LIQUID PO ×3 (13:12→22:29)
--- NOTE | 2020-09-01 14:29 | PCM.PROGNOTE ---
Patient Problems: Active and Suspected Problems Supratherapeutic INR (Acute) Gross hematuria (Acute) Subjective: Patient was seen and examined today at the request of urology, he was admitted early this morning for gross hematuria, patient has multiple medical problems including chronic obstructive pulmonary disease, type 2 diabetes, hyperlipidemia, chronic systolic congestive heart failure, atherosclerotic heart disease, chronic atrial fibrillation, chronic kidney disease, and valvular heart disease with a mechanical aortic valve. Patient is currently requiring low-flow nasal cannula oxygen at this time. Patient's INR on admission was elevated at 4.1, labs were remarkable for an elevated creatinine at 2.81, BUN was 59, patient's hemoglobin was 8.6, white blood cell count was normal. Patient had no chest x-ray on admission, I ordered one and it was read out as showing mild vascular congestion. On examination today, patient appeared alert, he did not appear in any distress, he had some mild confusion but was able to provide some medical information to me. - Physical Exam Vitals/I&O's: Vital Signs Temp Pulse Resp BP Pulse Ox 97.4 F L 101 H 28 H 133/97 H 95 09/01/20 09:00 09/01/20 10:24 09/01/20 10:24 09/01/20 09:00 09/01/20 10:24 Oxygen Flow Rate (L/min) 2 Oxygen Delivery Method Nasal Cannula Weight: 89.04 kg Body Mass Index (BMI) 29.8 Finger Stick Blood Glucose 188 Intake and Output for Last 24 Hours 08/30/20 08/31/20 09/01/20 23:59 23:59 23:59 Intake Total 241.5 / 241.5 Balance 241.5 / 241.5 General: Alert, Cooperative, No apparent distress, Well developed, Confused - Patient exhibits some mild confusion, he is a poor informant HEENT: Atraumatic, PERRLA, EOMI, Normocephalic Oral: Moist Mucosa Neck: Supple, No JVD, Negative Carotid Bruits, Trachea Midline, Thyroid Normal Size and Texture Lungs: Clear to auscultation, No rhonchi, No wheeze, No rales, Diminished Cardiovascular: PMI Normal, Irregular Rate, No rub noted, - - Mechanical click is noted over the patient's apex Abdomen: Bowel Sounds Present, Soft, Non Tender, Non-Distended Extremities: No clubbing, No cyanosis, Capillary Refill Less than 3 Seconds, Edema - Mild pitting edema is noted in the pretibial areas bilaterally Skin: No rashes, No breakdown Musculoskeletal: No Tenderness to Palpation of Joints or Extremities Neurological: Cranial nerves II-XII grossly intact, Neuro grossly intact, Sensory exam intact to light touch and pain, Coordination normal Psych/Mental Status: Flat Affect, - - Patient answers most questions appropriately, there is some mild confusion Laboratory Results 09/01/20 06:50: PT 39.9 H, INR 4.1 H* 09/01/20 06:50: Sodium 135 L, Potassium 4.9, Chloride 100, Carbon Dioxide 30.0, Anion Gap 5, BUN 59 H, Creatinine 2.81 H, Estim Creat Clear Calc 20.62, Est GFR (MDRD) Af Amer 28 L, Est GFR (MDRD) Non-Af 23 L, BUN/Creatinine Ratio 21.0 H, Glucose 141 H, Calcium 9.4 09/01/20 06:50: Blood Type B POSITIVE, Antibody Screen NEGATIVE 09/01/20 06:56: WBC 8.5, RBC 3.11 L, Hgb 8.6 L, Hct 28.4 L, MCV 91.3, MCH 27.7, MCHC 30.3 L, RDW Std Deviation 60.4 H, RDW Coeff of Yessi 18.6 H, Plt Count 339, MPV 10.9, Immature Gran % (Auto) 0.400, Neut % (Auto) 73.3 H, Lymph % (Auto) 18.1 L, [place] % (Auto) 6.7, Eos % (Auto) 0.8, Baso % (Auto) 0.7, Absolute Neuts (auto) 6.3, Absolute Lymphs (auto) 1.54, Nucleated RBC % 0 09/01/20 06:56: B-Natriuretic Peptide 365.1 H 09/01/20 10:43: POC Glucose 189 H Current Medications Acetaminophen (Acetaminophen 325 Mg Tablet) 325 mg PO Q4H PRN PRN PRN Reason: Pain Score 1-10 Al Hydroxide/Mg Hydroxide (Mag Hydrox/Al Hydrox/Simeth 30 Ml Udc) 30 ml PO Q4H PRN PRN PRN Reason: gi distress Albuterol Sulfate (Albuterol 2.5 Mg/3 Ml Vial.Neb.) 2.5 mg INHALATION Q4H PRN PRN Reason: Wheezing Albuterol/Ipratropium (Ipratropium/Albuterol Sulfate 3 Ml Ampul.Neb) 3 ml INHALATION Q6H.RT [facility] Allopurinol (Allopurinol 100 Mg Tablet) 100 mg PO DAILYCM [facility] Last Admin: 09/01/20 09:31 Dose: 100 mg Documented by: Amiodarone HCl (Amiodarone 200 Mg Tablet) 200 mg PO DAILY [facility] Last Admin: 09/01/20 08:53 Dose: 200 mg Documented by: Atorvastatin Calcium (Atorvastatin Calcium 80 Mg Tablet) 80 mg PO QHS [facility] Belladonna Alkaloids/Opium (Opium/Belladonna Alkaloids 60 Mg/15 Mg Suppository) 60 mg RC Q6H PRN PRN PRN Reason: BLADDER SPASMS Last Admin: 09/01/20 10:06 Dose: 60 mg Documented by: Budesonide (Budesonide Respules 0.5 Mg/2 Ml Ampul.Neb.) 0.5 mg INHALATION BID.RT [facility] Last Admin: 09/01/20 10:24 Dose: 0.5 mg Documented by: Bumetanide (Bumetanide 2 Mg Tablet) 2 mg PO BIDLX [facility] Last Admin: 09/01/20 09:32 Dose: 2 mg Documented by: Bumetanide (Bumetanide 0.5 Mg Tablet) 0.5 mg PO BIDLX [facility] Last Admin: 09/01/20 09:32 Dose: 0.5 mg Documented by: Dextrose (Dextrose 50%-Water 25 Gm/50 Ml Disp.Syrin) 0 gm IV X1 PRN; Protocol PRN Reason: Hypoglycemia Divalproex Sodium (Divalproex Sodium 250 Mg Tablet) 500 mg PO BID [facility] Last Admin: 09/01/20 10:33 Dose: 500 mg Documented by: Docusate Sodium (Docusate Sodium 100 Mg Capsule) 100 mg PO BID [facility] Last Admin: 09/01/20 09:32 Dose: 100 mg Documented by: Glucagon (Glucagon 1 Mg/Ml Syringe) 1 mg IM .X1 PRN PRN Reason: Hypoglycemia Ciprofloxacin (Cipro) 400 mg in 200 mls @ 200 mls/hr IV Q24 [facility] Last Infusion: 09/01/20 13:18 Dose: Infused Documented by: Sodium Chloride () 250 mls @ 15 mls/hr IV .[id number] PRN PRN Reason: Saline Flush Last Infusion: 09/01/20 13:19 Dose: 0 mls/hr Documented by: Sodium Chloride () 250 mls @ 15 mls/hr IV .[id number] PRN PRN Reason: Additional IVPB Infusion Insulin Glargine (Insulin Glargine 100 Units/Ml Pen) 14 units SC QHS [facility] Insulin Human Lispro (Insulin Lispro 100 Unit/Ml Insuln.Pen) 0 unit SC ACHS [facility]; Protocol Last Admin: 09/01/20 10:44 Dose: 1 units Documented by: Levothyroxine Sodium (Levothyroxine 50 Mcg Tablet) 50 mcg PO DAILY@0600 [facility] Last Admin: 09/01/20 09:32 Dose: 50 mcg Documented by: Magnesium Hydroxide (Magnesium Hydroxide 30 Ml Udc) 30 ml PO DAILY PRN PRN PRN Reason: CONSTIPATION Metoprolol Succinate (Metoprolol(Xl)Succ 50 Mg Tablet) 50 mg PO DAILY [facility] Last Admin: 09/01/20 09:33 Dose: 50 mg Documented by: Morphine Sulfate (Morphine 2 Mg/Ml Syringe) 2 mg IV Q4H PRN PRN PRN Reason: Pain Score 6-10 Nitroglycerin (Nitroglycerin (Inpatient Use) 0.4 Mg Tab.Subl) 0.4 mg SUBLINGUAL Q5M PRN PRN Reason: Angina Nutritional Formula (Lactose Free) (Glucerna Shake 120 Ml Liquid) 120 ml PO 4X/DAY [facility] Last Admin: 09/01/20 13:12 Dose: 120 ml Documented by: Ondansetron HCl (Ondansetron 4 Mg/2 Ml Vial) 4 mg IV Q6H PRN PRN PRN Reason: Nausea Oxycodone HCl (Oxycodone 5 Mg Tablet) 5 mg PO Q4H PRN PRN PRN Reason: Pain Score 1-10 Last Admin: 09/01/20 08:52 Dose: 5 mg Documented by: Pantoprazole Sodium (Pantoprazole Sodium 20 Mg Tablet) 20 mg PO BID [facility] Last Admin: 09/01/20 08:53 Dose: 20 mg Documented by: Potassium Chloride ([facility] 20 [facility] Admin: 09/01/20 09:32 Dose: 20 meq Documented by: Quetiapine Fumarate (Quetiapine 100 Mg Tablet) 100 mg PO BID [facility] Last Admin: 09/01/20 09:32 Dose: 100 mg Documented by: Senna (Senna Tablet) 1 tablet PO DAILY [facility] Last Admin: 09/01/20 09:32 Dose: 1 tablet Documented by: Sodium Chloride (0.9% Saline Lock 10 Ml Syringe) 10 - 40 ml IV UD PRN PRN Reason: SALINE FLUSH Last Admin: 09/01/20 13:13 Dose: 10 ml Documented by: Spironolactone (Spironolactone 25 Mg Tablet) 25 mg PO DAILY [facility] Last Admin: 09/01/20 08:53 Dose: 25 mg Documented by: Medical Necessity - Tobacco Use Smoking Status: Former smoker Tobacco Use: Non-smoker Assessment/Plan All Active Problems GI bleed (Resolved) Supratherapeutic INR (Acute) Gross hematuria (Acute) Anticoagulation goal of INR 2.5 to 3.5 (Acute) Facial droop (Acute) #1 chronic hypoxic respiratory failure secondary to chronic obstructive pulmonary disease and chronic systolic congestive heart failure-patient is currently on 2 L of oxygen and is maintaining his pulse ox. This is probably the patient's baseline. #2 chronic systolic congestive heart failure-I do not feel the patient needs further diuresis at this time, he is being maintained on his current Bumex and Aldactone dosage he was on at the nursing facility #3 chronic kidney disease stage IV-I do not have a creatinine from the patient's chart from late last year other than one which was done in May 2020, it showed a creatinine of 2.14 at that time, patient's next creatinine was highly elevated and was obtained on the day he was sent down to [facility] for further care, records there state that the patient had acute renal failure. I do not think the patient needs fluid administration at this time I would recheck the patient's labs tomorrow #4 atherosclerotic heart disease with recent BABATUNDE in 03/2020-patient will need to remain on Plavix and aspirin #5 ischemic cardiomyopathy-according to [facility] records, patient's EF was 35 to 40%.-This was on an echo performed on August 26, 2020. #6 chronic obstructive pulmonary disease #7 chronic cognitive impairment/mood disorder-patient shows evidence of mild cognitive impairment which may be on the basis of a previous stroke (patient's records from [facility] allude to an old CVA but I could not find an exact entry in his current medical record here at the hospital). Patient is currently on Seroquel and Depakote. #8 chronic atrial fibrillation- rate appears controlled at this time #9 mechanical aortic heart valve-patient is currently on Coumadin, I talked briefly with urology and it is their plan to keep the patient off Coumadin for now and let the INR drift downward in order to proceed with his cystoscopy which will probably take place on Monday. #10 type 2 diabetes-patient's blood sugars will be monitored, sliding scale insulin was ordered #11 chronic anemia-possibly secondary to chronic kidney disease, I will obtain a serum iron on the patient #12 GERD #13 hyperlipidemia #14 hypothyroidism Inpatient E&M: 28444 Subs Hosp L2
--- NOTE | 2020-09-01 14:38 | EKG12_ITS ---
Test Reason : RAPID RESPOSE Blood Pressure : / mmHG Vent. Rate : 093 BPM Atrial Rate : 073 BPM P-R Int : 000 ms QRS Dur : 162 ms QT Int : 482 ms P-R-T Axes : 000 -37 120 degrees QTc Int : 599 ms Atrial fibrillation Left axis deviation Left bundle branch block Abnormal ECG When compared with ECG of 01-SEP-2020 16:12, MANUAL COMPARISON REQUIRED, DATA IS UNCONFIRMED Confirmed by DELORES RESENDEZ, JAMES ([id number]), general expeditor MANFRED CASILLAS ([id number]) on 09/04/2020 8:51:45 AM Referred By: MICHI Confirmed By:CULLEN ESTRELLA MD
[2020-09-01 16:16] LABS: Bedside Glucose 181 mg/dL (70-110)
[2020-09-01] MEDS: Clopidogrel Bisulfate 75 MG Tablet PO (16:50)
[2020-09-01] MEDS: Aspirin 81 MG TAB.CHEW PO (16:51)
[2020-09-01] MEDS: Ipratropium/Albuterol Sulfate 3 ML AMPUL.NEB INHALATION (19:28)
[2020-09-01] MEDS: Morphine 2 MG/ML Syringe IV (19:52)
[2020-09-01] MEDS: Acetaminophen 325 MG Tablet PO (19:52)
[2020-09-01] MEDS: Ondansetron 4 MG/2 ML Vial IV (19:52)
[2020-09-01] MEDS: Atorvastatin Calcium 80 MG Tablet PO (22:13)
[2020-09-01 22:46] LABS: Bedside Glucose 231 mg/dL (70-110)
[2020-09-02] VITALS (17 sets, daily range): BP systolic 96–119; BP diastolic 50–71; PULSE 73–88; RESP 16–28; TEMP 36.4–37.1; O2SAT 87–98
[2020-09-02 05:40] LABS: Hematocrit 32.6 % (40-54); Hemoglobin 9.5 g/dL (13.0-16.5); Mean Corp Hgb Conc 29.1 g/dL (32-36); Mean Corpuscular Hgb 27.3 pg (27.0-32.0); Mean Corpuscular Volume 93.7 fL (80-94); Mean Platelet Vol. 10.5 fl (6.2-12.0); Platelet Count 225 K/mm3 (150-450); RBC Distribution Width CV 18.1 % (11.6-14.6); RBC Distribution Width SD 61.1 fl (35.1-43.9); Red Blood Count 3.48 M/mm3 (4.6-6.2); White Blood Count 14.8 K/mm3 (4.4-11.0)
[2020-09-02 05:49] LABS: Prothrombin Time (Protime)PT. 22.1 SECONDS (11.7-14.9)
[2020-09-02] MEDS: Levothyroxine 50 MCG Tablet PO (06:00)
[2020-09-02] MEDS: Acetaminophen 325 MG Tablet PO (06:02)
[2020-09-02] MEDS: Bumetanide 2 MG Tablet PO (06:03)
[2020-09-02] MEDS: Bumetanide 0.5 MG Tablet PO (06:03)
[2020-09-02] MEDS: Spironolactone 25 MG Tablet PO (06:04)
[2020-09-02 06:07] LABS: Anion Gap 7 (5-15); BUN 63 mg/dL (7-18); BUN/Creat Ratio 19.4 RATIO (10-20); Chloride 99 mmol/L (98-107); Creatinine, Serum 3.24 mg/dL (0.70-1.30); EST Glomerular Filtration Rate 20 mL/min (>60); Est Glom Filt Rate - Afr Amer 24 mL/min (>60); Estimated Creatinine Clearance 17.89 ml/min; Glucose 157 mg/dL (74-106); Potassium 5.7 mmol/L (3.5-5.1); Sodium Level 132 mmol/L (136-145)
[2020-09-02 06:20] LABS: Bedside Glucose 145 mg/dL (70-110)
[2020-09-02] MEDS: Ipratropium/Albuterol Sulfate 3 ML AMPUL.NEB INHALATION ×3 (07:06→19:43)
[2020-09-02] MEDS: Budesonide Respules 0.5 MG/2 ML AMPUL.NEB. INHALATION ×2 (07:07→19:43)
--- NOTE | 2020-09-02 08:20 | NURSING ---
SN CAME OUT TO NOTIFY NURSE THAT POX ON 4L IS 83%. PT IS PALE, MINIMAL RESPONSE, BLANK STARE. BLOOD SUGAR 170. AVITIA DARK RED. DR DE LA FUENTE NOTIFIED AND PRE SALES TECHNICAL CONSULTANT CALLED PER HIS REQUEST.
--- NOTE | 2020-09-02 08:24 | EKG12_ITS ---
Test Reason : Blood Pressure : / mmHG Vent. Rate : 074 BPM Atrial Rate : 156 BPM P-R Int : 000 ms QRS Dur : 180 ms QT Int : 494 ms P-R-T Axes : -69 -67 102 degrees QTc Int : 548 ms Unusual P axis, possible ectopic atrial tachycardia with variable conduction Left axis deviation Left bundle branch block Abnormal ECG When compared with ECG of 22-AUG-2020 15:36, Ectopic atrial rhythm has replaced Atrial fibrillation Nonspecific T wave abnormality no longer evident in Inferior leads T wave inversion no longer evident in Anterior leads QT has lengthened Confirmed by DELORES RESENDEZ, JAMES ([id number]), editor city MANFRED CASILLAS ([id number]) on 09/04/2020 8:52:37 AM Referred By: SUDHAKAR Confirmed By:CULLEN ESTRELLA MD
--- NOTE | 2020-09-02 08:30 | NURSING ---
Patient 02 level 88% decreased loc noted. Lungs with rhonchi noted. 104/66 hr 72. Charge notified. Charge calling Dr. Roblero. [id number]
--- NOTE | 2020-09-02 08:40 | RAD_ITS ---
STUDY: X-RAY CHEST REASON FOR EXAM: Male, 80 years old. SOB. ALSO HX GROSS HEMATURIA TECHNIQUE: Single AP portable view of the chest. COMPARISON: Comparison is made with prior examination dated 09/01/2020. FINDINGS: EKG electrodes are seen. Since prior study, there is evidence of progressive CHF with blunting of both cause phrenic angles. Sternal cerclage wires are present from a prior sternotomy. Prior aortic valve replacement. Normal mediastinum and roberth. Normal visualized pulmonary arteries. There is atherosclerotic calcification of the aortic arch with tortuosity. There are diffuse degenerative changes of the visualized thoracic spine. Normal visualized ribs, clavicles, and shoulders. There is no demonstrated abnormality of the visualized soft tissue structures of the upper abdomen. RAD/Chest 1 View (Portable) IMPRESSION: Cardiomegaly. Status post aortic valve replacement. Progressive CHF. Electronically Signed: Cyrus Saeed MD at 12:45 EST , Service support ,
[2020-09-02] MEDS: Aspirin 81 MG TAB.CHEW PO (09:26)
[2020-09-02] MEDS: Naloxone 0.4 MG/ML Syringe IV (09:26)
[2020-09-02] MEDS: Tamsulosin HCl 0.4 MG Capsule 0.8 MG PO (09:26)
[2020-09-02] MEDS: Allopurinol 100 MG Tablet PO (09:26)
--- NOTE | 2020-09-02 10:01 | ECHOCS_ITS ---
Reason For Study: CHF Procedure This was a 2D Doppler, Color Flow transthoracic echocardiogram. The study was technically difficult. Contrast injection was performed. Exam performed portable in patient room. Left Ventricle Normal LV size. The estimated ejection fraction is 30 %. Moderately severe global left ventricular systolic dysfunction. There is moderate to severe global hypokinesis of the left ventricle. Right Ventricle Normal RV size. Normal systolic function. Atria The left atrium is mildly enlarged. Normal right atrium. Mitral Valve Normal mitral valve. Mild-Moderate (1-2+) eccentric mitral valve insufficiency. Tricuspid Valve Normal tricuspid valve. Moderate (2+) tricuspid valve insufficiency. Pulmonary artery systolic pressure is 44 mmHg. Aortic Valve Peak aortic valve gradient 20 mmHg. Mean aortic valve gradient 9 mmHg. Stable appearing mechanical aortic valve apparatus. Pulmonic Valve Normal pulmonic valve. Great Vessels Normal aortic root. The pulmonary artery is normal size. Normal inferior vena cava. Pericardium/Pleural No pericardial effusion. Medication Diluted definity 2ml given slow IV push to enhance endocardial definition. MMode/2D Measurements & Calculations LVIDd: 4.8 cm IVSd: 1.1 cm LVOT diam: 2.0 cm LVIDs: 4.4 cm LVPWd: 0.72 cm FS: 9.3 % LVOT area: 3.1 cm2 Ao root diam: 2.8 cm LAV(MOD-bp): 65.1 ml LVAd ap4: 45.7 cm2 LA dimension: 5.0 cm LAV(MOD-bp) Indexed: 32.1 ml/m2 EDV(MOD-sp4): 199.3 ml LAV(MOD-sp2): 72.1 ml EDV(sp4-el): 202.8 ml LAV(MOD-sp4): 59.5 ml LVAs ap4: 36.9 cm2 ESV(MOD-sp4): 129.5 ml ESV(sp4-el): 133.9 ml EF(MOD-sp4): 35.1 % EF(sp4-el): 34.0 % SV(MOD-sp4): 69.9 ml SV(sp4-el): 68.9 ml LA A4 area: 21.2 cm2 Doppler Measurements & Calculations MV E max julien: 104.4 cm/sec Ao V2 max: 222.2 cm/sec LV V1 max: 96.8 cm/sec Ao max P.8 mmHg LV V1 max P.8 mmHg Ao V2 mean: 141.6 cm/sec LV V1 mean P.7 mmHg Ao mean P.4 mmHg LV V1 mean: 57.7 cm/sec Ao V2 VTI: 37.3 cm LV V1 VTI: 17.0 cm ANNA(I,D): 1.4 cm2 ANNA(V,D): 1.4 cm2 SV(LVOT): 52.9 ml TR max julien: 313.6 cm/sec TR max P.3 mmHg Interpretation Summary Normal LV size. The estimated ejection fraction is 30 %. Moderately severe global left ventricular systolic dysfunction. There is moderate to severe global hypokinesis of the left ventricle. Compare to 10 years ago the LV function is worse. Contrast injection was performed. Ordering Physician: Yovany Felder Referring Physician: Fredrick Conway Performed By: Michael Montiel RCS
--- NOTE | 2020-09-02 10:07 | NURSING ---
0930 report called to [facility]. [facility] [facility] sent.
[2020-09-02] MEDS: Pantoprazole Sodium 20 MG Tablet PO ×2 (10:44→21:17)
[2020-09-02] MEDS: Amiodarone 200 MG Tablet PO (10:45)
[2020-09-02] MEDS: Clopidogrel Bisulfate 75 MG Tablet PO (10:50)
[2020-09-02 11:50] LABS: Bedside Glucose 154 mg/dL (70-110)
--- NOTE | 2020-09-02 11:53 | PCM.PROGNOTE ---
Patient Problems: Active and Suspected Problems Supratherapeutic INR (Acute) Gross hematuria (Acute) Subjective: Patient was seen and examined today, earlier this morning at approximately 9 AM, and [employer] was called as the patient's mental status change and he was lethargic, he had been given morphine the night before for pain, patient's vital signs at the time of my examination were stable but he required increased amount of oxygen to maintain his pulse ox above 90%. I administered Narcan to the patient and shortly after this, he became more alert and responded appropriately to questions. Before the Narcan, patient was able to shake his head yes or no to respond to some questions but was lethargic. I obtained a chest x-ray on the patient which showed worsening CHF, due to the patient's increased oxygen requirements and the patient's worsening renal function I decided to transfer the patient to PCU for further care. I talked to the patient briefly about measures such as a ventilator or dialysis and asked him if he would wish us to put him through these procedures if he needed them to survive, he shook his head yes that he would consider ventilatory support and or dialysis. I am not absolutely sure he understands the extent of what this would mean as the patient has multiple medical problems as outlined in my note yesterday. I try to get a hold of his friend who is his only contact, the call went to voicemail and as of the time of this dictation several hours later, he has not returned my call. I talked briefly with nephrology today to asked him to see him for their input. Patient's INR today was 2, his potassium was elevated at 5.7-nephrology recommended discontinuing the Aldactone and administering Kayexalate. Patient's white blood cell count is elevated at 14.8 today but he is afebrile and his chest x-ray was read out as showing congestive heart failure. Patient's creatinine today was 3.24, BUN was 63. Patient's CT scan of the abdomen and pelvis yesterday did not show evidence of hydronephrosis. I talked briefly with urology today and they stated that they would be of a mine to wait to do anything like a cystoscopy on the patient due to his tenuous medical condition. - Physical Exam Vitals/I&O's: Vital Signs Temp Pulse Resp BP Pulse Ox 98.8 F 74 18 107/63 95 02/10/21 11:39 09/02/20 11:39 09/02/20 11:39 09/02/20 11:39 09/02/20 11:39 Oxygen Flow Rate (L/min) 12 Oxygen Delivery Method Venturi Mask Weight: 89.04 kg Body Mass Index (BMI) 29.8 Finger Stick Blood Glucose 188 Intake and Output for Last 24 Hours 08/31/20 09/01/20 09/02/20 23:59 23:59 23:59 Intake Total 241.5 / 241.5 100 / 100 Output Total 4675 / 4675 3750 / 3750 Balance -4433.5 / -4433.5 -3650 / -3650 General: Alert, Cooperative, No apparent distress, Well developed, Well nourished, Lethargic HEENT: Atraumatic, PERRLA, EOMI, Normocephalic Oral: Moist Mucosa Neck: Supple, No JVD, Trachea Midline, Thyroid Normal Size and Texture Lungs: No wheeze, Diminished - Diminished breath sounds over the lower lung lozoya bilaterally, Rales - Inspiratory rales at the bases bilaterally, Rhonchi - Scattered expiratory rhonchi bilaterally Cardiovascular: PMI Normal, Irregular Rate, No rub noted, - - Mechanical click is noted over the patient's left sternal border and apex area Abdomen: Bowel Sounds Present, Soft, Non Tender, Non-Distended Extremities: No clubbing, No cyanosis, Capillary Refill Less than 3 Seconds Skin: No rashes, No breakdown Musculoskeletal: No Tenderness to Palpation of Joints or Extremities Neurological: Cranial nerves II-XII grossly intact, Neuro grossly intact, Sensory exam intact to light touch and pain, Coordination normal Psych/Mental Status: Flat Affect, - - Patient answers simple questions appropriately Laboratory Results 09/01/20 06:56: B-Natriuretic Peptide 365.1 H 09/01/20 16:00: POC Glucose 181 H 09/01/20 22:30: POC Glucose 231 H 09/02/20 05:28: WBC 14.8 H, RBC 3.48 L, Hgb 9.5 L, Hct 32.6 L, MCV 93.7, MCH 27.3, MCHC 29.1 L, RDW Std Deviation 61.1 H, RDW Coeff of Yessi 18.1 H, Plt Count 225, MPV 10.5 09/02/20 05:28: Sodium 132 L, Potassium 5.7 H, Chloride 99, Carbon Dioxide 26.0, Anion Gap 7, BUN 63 H, Creatinine 3.24 H, Estim Creat Clear Calc 17.89, Est GFR (MDRD) Af Amer 24 L, Est GFR (MDRD) Non-Af 20 L, BUN/Creatinine Ratio 19.4, Glucose 157 H, Calcium 9.0 09/02/20 05:28: PT 22.1 H, INR 2.0 09/02/20 06:13: POC Glucose 145 H 09/02/20 11:40: POC Glucose 154 H Current Medications Acetaminophen (Acetaminophen 325 Mg Tablet) 325 mg PO Q4H PRN PRN PRN Reason: Pain Score 1-10 Last Admin: 09/02/20 06:02 Dose: 325 mg Documented by: Al Hydroxide/Mg Hydroxide (Mag Hydrox/Al Hydrox/Simeth 30 Ml Udc) 30 ml PO Q4H PRN PRN PRN Reason: gi distress Albuterol Sulfate (Albuterol 2.5 Mg/3 Ml Vial.Neb.) 2.5 mg INHALATION Q4H PRN PRN Reason: Wheezing Albuterol/Ipratropium (Ipratropium/Albuterol Sulfate 3 Ml Ampul.Neb) 3 ml INHALATION Q6H.RT [facility] Last Admin: 09/02/20 07:06 Dose: 3 ml Documented by: Allopurinol (Allopurinol 100 Mg Tablet) 100 mg PO DAILYCM [facility] Last Admin: 09/02/20 09:26 Dose: 100 mg Documented by: Amiodarone HCl (Amiodarone 200 Mg Tablet) 200 mg PO DAILY [facility] Last Admin: 09/02/20 10:45 Dose: 200 mg Documented by: Aspirin (Aspirin 81 Mg Tab.Chew) 81 mg PO DAILY@0800 [facility] Last Admin: 09/02/20 09:26 Dose: 81 mg Documented by: Atorvastatin Calcium (Atorvastatin Calcium 80 Mg Tablet) 80 mg PO QHS [facility] Last Admin: 09/01/20 22:13 Dose: 80 mg Documented by: Budesonide (Budesonide Respules 0.5 Mg/2 Ml Ampul.Neb.) 0.5 mg INHALATION BID.RT [facility] Last Admin: 09/02/20 07:07 Dose: 0.5 mg Documented by: Clopidogrel Bisulfate (Clopidogrel Bisulfate 75 Mg Tablet) 75 mg PO DAILY [facility] Last Admin: 09/02/20 10:50 Dose: 75 mg Documented by: Dextrose (Dextrose 50%-Water 25 Gm/50 Ml Disp.Syrin) 0 gm IV X1 PRN; Protocol PRN Reason: Hypoglycemia Docusate Sodium (Docusate Sodium 100 Mg Capsule) 100 mg PO BID [facility] Last Admin: 09/02/20 10:46 Dose: Not Given Documented by: Finasteride (Finasteride 5 Mg Tablet) 5 mg PO DAILY [facility] Furosemide (Furosemide 40 Mg/4 Ml Vial) 40 mg IV Q8 [facility] Glucagon (Glucagon 1 Mg/Ml Syringe) 1 mg IM .X1 PRN PRN Reason: Hypoglycemia Sodium Chloride () 250 mls @ 15 mls/hr IV .[id number] PRN PRN Reason: Saline Flush Last Infusion: 09/01/20 13:19 Dose: 0 mls/hr Documented by: Sodium Chloride () 250 mls @ 15 mls/hr IV .[id number] PRN PRN Reason: Additional IVPB Infusion Piperacillin Sod/Tazobactam (Sod 3.375 gm/ Sodium Chloride) 50 mls @ 12.5 mls/hr IV Q8 [facility] Insulin Glargine (Insulin Glargine 100 Units/Ml Pen) 14 units SC QHS [facility] Last Admin: 09/01/20 22:31 Dose: 14 units Documented by: Insulin Human Lispro (Insulin Lispro 100 Unit/Ml Insuln.Pen) 0 unit SC ACHS [facility]; Protocol Last Admin: 09/02/20 11:43 Dose: Not Given Documented by: Levothyroxine Sodium (Levothyroxine 50 Mcg Tablet) 50 mcg PO DAILY@0600 [facility] Last Admin: 09/02/20 06:00 Dose: 50 mcg Documented by: Magnesium Hydroxide (Magnesium Hydroxide 30 Ml Udc) 30 ml PO DAILY PRN PRN PRN Reason: CONSTIPATION Metoprolol Succinate (Metoprolol(Xl)Succ 50 Mg Tablet) 50 mg PO DAILY [facility] Last Admin: 09/02/20 10:45 Dose: Not Given Documented by: Nitroglycerin (Nitroglycerin (Inpatient Use) 0.4 Mg Tab.Subl) 0.4 mg SUBLINGUAL Q5M PRN PRN Reason: Angina Nutritional Formula (Lactose Free) (Glucerna Shake 120 Ml Liquid) 120 ml PO 4X/DAY [facility] Last Admin: 09/02/20 10:46 Dose: Not Given Documented by: Ondansetron HCl (Ondansetron 4 Mg/2 Ml Vial) 4 mg IV Q6H PRN PRN PRN Reason: Nausea Last Admin: 09/01/20 19:52 Dose: 4 mg Documented by: Oxycodone HCl (Oxycodone 5 Mg Tablet) 5 mg PO Q4H PRN PRN PRN Reason: Pain Score 1-10 Last Admin: 09/01/20 22:17 Dose: 5 mg Documented by: Pantoprazole Sodium (Pantoprazole Sodium 20 Mg Tablet) 20 mg PO BID [facility] Last Admin: 09/02/20 10:44 Dose: 20 mg Documented by: Quetiapine Fumarate (Quetiapine 100 Mg Tablet) 100 mg PO BID [facility] Last Admin: 09/02/20 10:10 Dose: Not Given Documented by: Senna (Senna Tablet) 1 tablet PO DAILY [facility] Last Admin: 09/02/20 10:46 Dose: Not Given Documented by: Sodium Chloride (0.9% Saline Lock 10 Ml Syringe) 10 - 40 ml IV UD PRN PRN Reason: SALINE FLUSH Last Admin: 09/01/20 19:53 Dose: 10 ml Documented by: Sodium Polystyrene Sulfonate (Sodium Polystyrene Sulfonate 15 Gm/60 Ml Udc) 30 gm PO X1 ONE Stop: 09/02/20 10:34 Tamsulosin HCl (Tamsulosin Hcl 0.4 Mg Capsule) 0.8 mg PO DAILY@0830 [facility] Medical Necessity - Tobacco Use Smoking Status: Former smoker Tobacco Use: Non-smoker Assessment/Plan All Active Problems GI bleed (Resolved) Supratherapeutic INR (Acute) Gross hematuria (Acute) Anticoagulation goal of INR 2.5 to 3.5 (Acute) Facial droop (Resolved) #1 chronic hypoxic respiratory failure secondary to chronic obstructive pulmonary disease and chronic systolic congestive heart failure-patient is currently on 50% Venturi mask and is satting at 95%. The patient's multiple medical problems, he may eventually require intubation if he continues to deteriorate. #2 Acute on chronic systolic congestive heart failure-placed the patient on IV Lasix today, echocardiogram will be obtained #3 chronic kidney disease stage IV-patient's creatinine is worse today as compared with yesterday's lab, nephrology will see the patient #4 atherosclerotic heart disease with recent BABATUNDE in 03/2020-patient will need to remain on Plavix and aspirin #5 ischemic cardiomyopathy/history of dilated cardiomyopathy-again patient's echocardiogram will be repeated #6 chronic obstructive pulmonary disease #7 Schizoaffective disorder-due to the patient's lethargy this morning I have decided to stop the patient's Seroquel and Depakote, we will observe the patient for any mood changes #8 chronic atrial fibrillation- rate appears controlled at this time, EKG today obtained shows atrial fibrillation with a wide QRS complex. #9 mechanical aortic heart valve-patient will remain off Coumadin for now, it may be necessary to restart some sort of anticoagulation tomorrow (IV heparin) depending on if the patient is continuing to have hematuria. I will recheck the patient's INR tomorrow #10 type 2 diabetes-patient's blood sugars will be monitored, sliding scale insulin was ordered #11 chronic anemia-possibly secondary to chronic kidney disease, I will obtain a serum iron on the patient #12 GERD #13 hyperlipidemia #14 hypothyroidism #15 hyperkalemia-this is probably secondary in part to the patient's use of spironolactone, this was stopped today and the patient was given Kayexalate-it is unknown whether the patient will be able to take this due to his lethargy, labs will be monitored #16 leukocytosis-etiology unclear at this point, I have decided to change the patient's antibiotic coverage to Zosyn to afford a wider coverage with this antibiotic. Patient's Cipro was stopped Inpatient E&M: [id number] [facility] H[facility] L3
--- NOTE | 2020-09-02 12:34 | PN_ITS ---
Patient Problems: Active and Suspected Problems Supratherapeutic INR (Acute) Gross hematuria (Acute) Subjective: 80-year-old male with multiple medical problems was admitted to the hospital for gross hematuria this morning he was found sort of unresponsive and a rapid response team was called and he is now under the care of the hospitalist service. He does have a lot of medical problems including heart problems very pale diaphoretic and weak looking and white looking he is on oxygen he does respond to questions but very slowly. I irrigated the catheter out today and got some clots out now the urine is running clear but the irrigation is slowly getting better. - Physical Exam Vitals/I&O's: Vital Signs Temp Pulse Resp BP Pulse Ox 98.8 F 74 18 107/63 95 09/02/20 11:39 09/02/20 11:39 09/02/20 11:39 09/02/20 11:39 09/02/20 11:39 Oxygen Flow Rate (L/min) 12 Oxygen Delivery Method Venturi Mask Weight: 89.04 kg Body Mass Index (BMI) 29.8 Finger Stick Blood Glucose 188 Intake and Output for Last 24 Hours 08/31/20 09/01/20 09/02/20 23:59 23:59 23:59 Intake Total 241.5 / 241.5 100 / 100 Output Total 4675 / 4675 3750 / 3750 Balance -4433.5 / -4433.5 -3650 / -3650 General: Alert HEENT: Atraumatic Oral: Moist Mucosa Lungs: Normal air movement, Wheezes Cardiovascular: Regular rate Abdomen: Soft Laboratory Results 09/01/20 06:56: B-Natriuretic Peptide 365.1 H 09/01/20 16:00: POC Glucose 181 H 09/01/20 22:30: POC Glucose 231 H 09/02/20 05:28: WBC 14.8 H, RBC 3.48 L, Hgb 9.5 L, Hct 32.6 L, MCV 93.7, MCH 27.3, MCHC 29.1 L, RDW Std Deviation 61.1 H, RDW Coeff of Yessi 18.1 H, Plt Count 225, MPV 10.5 09/02/20 05:28: Sodium 132 L, Potassium 5.7 H, Chloride 99, Carbon Dioxide 26.0, Anion Gap 7, BUN 63 H, Creatinine 3.24 H, Estim Creat Clear Calc 17.89, Est GFR (MDRD) Af Amer 24 L, Est GFR (MDRD) Non-Af 20 L, BUN/Creatinine Ratio 19.4, Glucose 157 H, Calcium 9.0 09/02/20 05:28: PT 22.1 H, INR 2.0 09/02/20 06:13: POC Glucose 145 H 09/02/20 11:40: POC Glucose 154 H Current Medications Acetaminophen (Acetaminophen 325 Mg Tablet) 325 mg PO Q4H PRN PRN PRN Reason: Pain Score 1-10 Last Admin: 09/02/20 06:02 Dose: 325 mg Documented by: Al Hydroxide/Mg Hydroxide (Mag Hydrox/Al Hydrox/Simeth 30 Ml Udc) 30 ml PO Q4H PRN PRN PRN Reason: gi distress Albuterol Sulfate (Albuterol 2.5 Mg/3 Ml Vial.Neb.) 2.5 mg INHALATION Q4H PRN PRN Reason: Wheezing Albuterol/Ipratropium (Ipratropium/Albuterol Sulfate 3 Ml Ampul.Neb) 3 ml INHALATION Q6H.RT [facility] Last Admin: 09/02/20 07:06 Dose: 3 ml Documented by: Allopurinol (Allopurinol 100 Mg Tablet) 100 mg PO DAILYCM [facility] Last Admin: 09/02/20 09:26 Dose: 100 mg Documented by: Amiodarone HCl (Amiodarone 200 Mg Tablet) 200 mg PO DAILY [facility] Last Admin: 09/02/20 10:45 Dose: 200 mg Documented by: Aspirin (Aspirin 81 Mg Tab.Chew) 81 mg PO DAILY@0800 [facility] Last Admin: 09/02/20 09:26 Dose: 81 mg Documented by: Atorvastatin Calcium (Atorvastatin Calcium 80 Mg Tablet) 80 mg PO QHS [facility] Last Admin: 09/01/20 22:13 Dose: 80 mg Documented by: Budesonide (Budesonide Respules 0.5 Mg/2 Ml Ampul.Neb.) 0.5 mg INHALATION BID.RT [facility] Last Admin: 09/02/20 07:07 Dose: 0.5 mg Documented by: Clopidogrel Bisulfate (Clopidogrel Bisulfate 75 Mg Tablet) 75 mg PO DAILY [facility] Last Admin: 09/02/20 10:50 Dose: 75 mg Documented by: Dextrose (Dextrose 50%-Water 25 Gm/50 Ml Disp.Syrin) 0 gm IV X1 PRN; Protocol PRN Reason: Hypoglycemia Docusate Sodium (Docusate Sodium 100 Mg Capsule) 100 mg PO BID [facility] Last Admin: 09/02/20 10:46 Dose: Not Given Documented by: Finasteride (Finasteride 5 Mg Tablet) 5 mg PO DAILY [facility] Furosemide (Furosemide 40 Mg/4 Ml Vial) 40 mg IV Q8 [facility] Glucagon (Glucagon 1 Mg/Ml Syringe) 1 mg IM .X1 PRN PRN Reason: Hypoglycemia Sodium Chloride () 250 mls @ 15 mls/hr IV .[id number] PRN PRN Reason: Saline Flush Last Infusion: 09/01/20 13:19 Dose: 0 mls/hr Documented by: Sodium Chloride () 250 mls @ 15 mls/hr IV .[id number] PRN PRN Reason: Additional IVPB Infusion Piperacillin Sod/Tazobactam (Sod 3.375 gm/ Sodium Chloride) 50 mls @ 12.5 mls/hr IV Q12 [facility] Insulin Glargine (Insulin Glargine 100 Units/Ml Pen) 14 units SC QHS [facility] Last Admin: 09/01/20 22:31 Dose: 14 units Documented by: Insulin Human Lispro (Insulin Lispro 100 Unit/Ml Insuln.Pen) 0 unit SC ACHS [facility]; Protocol Last Admin: 09/02/20 11:43 Dose: Not Given Documented by: Levothyroxine Sodium (Levothyroxine 50 Mcg Tablet) 50 mcg PO DAILY@0600 [facility] Last Admin: 09/02/20 06:00 Dose: 50 mcg Documented by: Magnesium Hydroxide (Magnesium Hydroxide 30 Ml Udc) 30 ml PO DAILY PRN PRN PRN Reason: CONSTIPATION Metoprolol Succinate (Metoprolol(Xl)Succ 50 Mg Tablet) 50 mg PO DAILY [facility] Last Admin: 09/02/20 10:45 Dose: Not Given Documented by: Nitroglycerin (Nitroglycerin (Inpatient Use) 0.4 Mg Tab.Subl) 0.4 mg SUBLINGUAL Q5M PRN PRN Reason: Angina Nutritional Formula (Lactose Free) (Glucerna Shake 120 Ml Liquid) 120 ml PO 4X/DAY [facility] Last Admin: 09/02/20 10:46 Dose: Not Given Documented by: Ondansetron HCl (Ondansetron 4 Mg/2 Ml Vial) 4 mg IV Q6H PRN PRN PRN Reason: Nausea Last Admin: 09/01/20 19:52 Dose: 4 mg Documented by: Oxycodone HCl (Oxycodone 5 Mg Tablet) 5 mg PO Q4H PRN PRN PRN Reason: Pain Score 1-10 Last Admin: 09/01/20 22:17 Dose: 5 mg Documented by: Pantoprazole Sodium (Pantoprazole Sodium 20 Mg Tablet) 20 mg PO BID [facility] Last Admin: 09/02/20 10:44 Dose: 20 mg Documented by: Senna (Senna Tablet) 1 tablet PO DAILY [facility] Last Admin: 09/02/20 10:46 Dose: Not Given Documented by: Sodium Chloride (0.9% Saline Lock 10 Ml Syringe) 10 - 40 ml IV UD PRN PRN Reason: SALINE FLUSH Last Admin: 09/01/20 19:53 Dose: 10 ml Documented by: Tamsulosin HCl (Tamsulosin Hcl 0.4 Mg Capsule) 0.8 mg PO DAILY@0830 [facility] Medical Necessity - Tobacco Use Smoking Status: Former smoker Tobacco Use: Non-smoker Assessment/Plan All Active Problems GI bleed (Resolved) Supratherapeutic INR (Acute) Gross hematuria (Acute) Anticoagulation goal of INR 2.5 to 3.5 (Acute) Facial droop (Resolved) 80-year-old male with multiple medical problems admitted for gross hematuria he has appears to have congestive heart failure medical problems he is on blood thinners is all managed by medical service at this point irrigate out the catheter I do not think he is stable enough to go to the operating room to find the source of the bleeding CAT scan was reviewed I think the source of bleeding is probably prostatic origin start him on prostate medications as discussed with the hospitalist. Hopefully as he improves once we can stop the irrigation he may have to go home with a catheter I do not foresee taken to the surgery at this point is given his overall very weakened condition and not at risk for surgical complications are pulmonary and cardiac and anesthesia complications from put in the sleep so we can avoid this until he is deemed safe.
--- NOTE | 2020-09-02 12:47 | CON.PCM_ITS ---
Consultation - Renal 09/02/20 PCP/ Referring MD: Requesting physician: [] Primary care physician: Dr. Fredrick Conway MD Reason for Consultation:: HUONG on CKD - History of Present Illness History of Present Illness: The patient is a 80 year old M poor historian came in from [facility] for gross hematuria with clots, pelvic pain admitted to urology service for cystoscopy. He has an extensive, complicated medical history. Hx mechanical AVR on anticoagulation INR 4 on admit. He had bladder irrigations overnight, still with hematuria with decreased urine output, rising creatinine and hyperkalemia K 5.7. Pt on spironolactone and KCL. Both discontinued today. Hx chronic afib, DM2, ischemic cardiomyopathy, CAD s/p cardiact stent on 03/2020 on plavix, CHF EF 35-40%, stroke, COPD, and schizoaffective disorder. [employer]CHNICIAN called for change in MS. He was seen in [place] [facility] on 08/22/20 for hemoptysis with elevated INR of >19.5 transferred to [facility]. He was living at home alone and was managing his medications poorly with homecare. - Allergies Allergies: Allergies ticagrelor [From Brilinta] Allergy (Verified 09/01/20 06:08) WEAKNESS - Current Medications Current Medications: Current Medications Acetaminophen (Acetaminophen 325 Mg Tablet) 325 mg PO Q4H PRN PRN PRN Reason: Pain Score 1-10 Last Admin: 09/02/20 06:02 Dose: 325 mg Documented by: Al Hydroxide/Mg Hydroxide (Mag Hydrox/Al Hydrox/Simeth 30 Ml Udc) 30 ml PO Q4H PRN PRN PRN Reason: gi distress Albuterol Sulfate (Albuterol 2.5 Mg/3 Ml Vial.Neb.) 2.5 mg INHALATION Q4H PRN PRN Reason: Wheezing Albuterol/Ipratropium (Ipratropium/Albuterol Sulfate 3 Ml Ampul.Neb) 3 ml INHALATION Q6H.RT [facility] Last Admin: 09/02/20 07:06 Dose: 3 ml Documented by: Allopurinol (Allopurinol 100 Mg Tablet) 100 mg PO DAILYCM [facility] Last Admin: 09/02/20 09:26 Dose: 100 mg Documented by: Amiodarone HCl (Amiodarone 200 Mg Tablet) 200 mg PO DAILY [facility] Last Admin: 09/02/20 10:45 Dose: 200 mg Documented by: Aspirin (Aspirin 81 Mg Tab.Chew) 81 mg PO DAILY@0800 [facility] Last Admin: 09/02/20 09:26 Dose: 81 mg Documented by: Atorvastatin Calcium (Atorvastatin Calcium 80 Mg Tablet) 80 mg PO QHS [facility] Last Admin: 09/01/20 22:13 Dose: 80 mg Documented by: Budesonide (Budesonide Respules 0.5 Mg/2 Ml Ampul.Neb.) 0.5 mg INHALATION BID.RT [facility] Last Admin: 09/02/20 07:07 Dose: 0.5 mg Documented by: Clopidogrel Bisulfate (Clopidogrel Bisulfate 75 Mg Tablet) 75 mg PO DAILY [facility] Last Admin: 09/02/20 10:50 Dose: 75 mg Documented by: Dextrose (Dextrose 50%-Water 25 Gm/50 Ml Disp.Syrin) 0 gm IV X1 PRN; Protocol PRN Reason: Hypoglycemia Docusate Sodium (Docusate Sodium 100 Mg Capsule) 100 mg PO BID [facility] Last Admin: 09/02/20 10:46 Dose: Not Given Documented by: Finasteride (Finasteride 5 Mg Tablet) 5 mg PO DAILY [facility] Furosemide (Furosemide 40 Mg/4 Ml Vial) 40 mg IV Q8 [facility] Glucagon (Glucagon 1 Mg/Ml Syringe) 1 mg IM .X1 PRN PRN Reason: Hypoglycemia Sodium Chloride () 250 mls @ 15 mls/hr IV .[id number] PRN PRN Reason: Saline Flush Last Infusion: 09/01/20 13:19 Dose: 0 mls/hr Documented by: Sodium Chloride () 250 mls @ 15 mls/hr IV .[id number] PRN PRN Reason: Additional IVPB Infusion Piperacillin Sod/Tazobactam (Sod 3.375 gm/ Sodium Chloride) 50 mls @ 12.5 mls/hr IV Q12 [facility] Insulin Glargine (Insulin Glargine 100 Units/Ml Pen) 14 units SC QHS [facility] Last Admin: 09/01/20 22:31 Dose: 14 units Documented by: Insulin Human Lispro (Insulin Lispro 100 Unit/Ml Insuln.Pen) 0 unit SC ACHS [facility]; Protocol Last Admin: 09/02/20 11:43 Dose: Not Given Documented by: Levothyroxine Sodium (Levothyroxine 50 Mcg Tablet) 50 mcg PO DAILY@0600 [facility] Last Admin: 09/02/20 06:00 Dose: 50 mcg Documented by: Magnesium Hydroxide (Magnesium Hydroxide 30 Ml Udc) 30 ml PO DAILY PRN PRN PRN Reason: CONSTIPATION Metoprolol Succinate (Metoprolol(Xl)Succ 50 Mg Tablet) 50 mg PO DAILY [facility] Last Admin: 09/02/20 10:45 Dose: Not Given Documented by: Nitroglycerin (Nitroglycerin (Inpatient Use) 0.4 Mg Tab.Subl) 0.4 mg SUBLINGUAL Q5M PRN PRN Reason: Angina Nutritional Formula (Lactose Free) (Glucerna Shake 120 Ml Liquid) 120 ml PO 4X/DAY [facility] Last Admin: 09/02/20 10:46 Dose: Not Given Documented by: Ondansetron HCl (Ondansetron 4 Mg/2 Ml Vial) 4 mg IV Q6H PRN PRN PRN Reason: Nausea Last Admin: 09/01/20 19:52 Dose: 4 mg Documented by: Oxycodone HCl (Oxycodone 5 Mg Tablet) 5 mg PO Q4H PRN PRN PRN Reason: Pain Score 1-10 Last Admin: 09/01/20 22:17 Dose: 5 mg Documented by: Pantoprazole Sodium (Pantoprazole Sodium 20 Mg Tablet) 20 mg PO BID [facility] Last Admin: 09/02/20 10:44 Dose: 20 mg Documented by: Senna (Senna Tablet) 1 tablet PO DAILY [facility] Last Admin: 09/02/20 10:46 Dose: Not Given Documented by: Sodium Chloride (0.9% Saline Lock 10 Ml Syringe) 10 - 40 ml IV UD PRN PRN Reason: SALINE FLUSH Last Admin: 09/01/20 19:53 Dose: 10 ml Documented by: Tamsulosin HCl (Tamsulosin Hcl 0.4 Mg Capsule) 0.8 mg PO DAILY@0830 [facility] - Past Medical History Past Medical History (Chronic Problems): Chronic Problems Dilated cardiomyopathy (Chronic) Obstructive sleep apnea (Chronic) Cerebrovascular disease (Chronic) Schizoaffective disorder (Chronic) Acute cerebrovascular accident (Chronic) CAD (coronary artery disease) (Chronic) mechanical prosthetic aortic valve replacement (Chronic) Hyperlipidemia (Chronic) DM type 2 (diabetes mellitus, type 2) (Chronic) Chronic obstructive lung disease (Chronic) - Past Surgical History Surgical History: cholecystectomy, - - Bladder resection and aortic valve replacement - Social History Smoking Status: Former smoker Alcohol: None Drugs: None - Family History Maternal History Items: Unknown - He does not know any biological history of either parent as he was raised in an orphanage Review of Systems Constitutional: Reports: Anorexia, Weakness, Fatigue. Denies: Chills, Fever Eyes: Denies: Vision Change HEENT: Denies: Head Aches Cardiovascular: Reports: Edema. Denies: Chest Pain Respiratory: Reports: Shortness of Breath. Denies: Cough Gastrointestinal: Denies: Abdominal Pain, Nausea, Vomiting Genitourinary: Reports: - - gross hematuria, hx BPH Musculoskeletal: Reports: - - leg swelling Skin: Denies: Rash Neurological: Reports: Tremor - chronic Hematologic/ Lymphatic: Reports: Anemia Patient Problems: Active and Suspected Problems Supratherapeutic INR (Acute) Gross hematuria (Acute) - Physical Exam Vitals/I&O's: Vital Signs Temp Pulse Resp BP Pulse Ox 98.8 F 74 18 107/63 95 09/02/20 11:39 09/02/20 11:39 09/02/20 11:39 09/02/20 11:39 09/02/20 11:39 Oxygen Flow Rate (L/min) 12 Oxygen Delivery Method Venturi Mask Weight: 89.04 kg Body Mass Index (BMI) 29.8 Finger Stick Blood Glucose 188 Intake and Output for Last 24 Hours 08/31/20 09/01/20 09/02/20 23:59 23:59 23:59 Intake Total 241.5 / 241.5 100 / 100 Output Total 4675 / 4675 3750 / 3750 Balance -4433.5 / -4433.5 -3650 / -3650 General: - - slow to respond, poor historian, encephalopathci Oral: Dry Mucosa Lungs: Diminished, - - poor inspiratory effort Cardiovascular: Irregular Rate - irregular rhythm Abdomen: Bowel Sounds Present, Non Tender, Distended - mild Extremities: Edema - 1+ BLE Musculoskeletal: - - gen weakness Neurological: - - tremor at rest BUE Psych/Mental Status: Flat Affect, - - decreased responsiveness, Alert and oriented to time, place, person, mood and affect - disoriented to time Laboratory Results 09/01/20 16:00: POC Glucose 181 H 09/01/20 22:30: POC Glucose 231 H 09/02/20 05:28: WBC 14.8 H, RBC 3.48 L, Hgb 9.5 L, Hct 32.6 L, MCV 93.7, MCH 27.3, MCHC 29.1 L, RDW Std Deviation 61.1 H, RDW Coeff of Yessi 18.1 H, Plt Count 225, MPV 10.5 09/02/20 05:28: Sodium 132 L, Potassium 5.7 H, Chloride 99, Carbon Dioxide 26.0, Anion Gap 7, BUN 63 H, Creatinine 3.24 H, Estim Creat Clear Calc 17.89, Est GFR (MDRD) Af Amer 24 L, Est GFR (MDRD) Non-Af 20 L, BUN/Creatinine Ratio 19.4, Glucose 157 H, Calcium 9.0 09/02/20 05:28: PT 22.1 H, INR 2.0 09/02/20 06:13: POC Glucose 145 H 09/02/20 11:40: POC Glucose 154 H Clinical Impression(s) from Imaging Studies Abdomen/Pelvis CT 09/01/20 12:48 IMPRESSION: Diffuse bladder wall thickening with findings suggestive of the blood within the dependent portion of the urinary bladder. Prostatic enlargement. Bilateral pleural effusions with bibasilar atelectasis and/or infiltration. Electronically Signed: Cyrus Saeed MD at 14:33 EST , Service support , Chest X-Ray 09/02/20 08:40 IMPRESSION: Cardiomegaly. Status post aortic valve replacement. Progressive CHF. Electronically Signed: Cyrus Saeed MD at 12:45 EST , Service support , Current Medications Acetaminophen (Acetaminophen 325 Mg Tablet) 325 mg PO Q4H PRN PRN PRN Reason: Pain Score 1-10 Last Admin: 09/02/20 06:02 Dose: 325 mg Documented by: Al Hydroxide/Mg Hydroxide (Mag Hydrox/Al Hydrox/Simeth 30 Ml Udc) 30 ml PO Q4H PRN PRN PRN Reason: gi distress Albuterol Sulfate (Albuterol 2.5 Mg/3 Ml Vial.Neb.) 2.5 mg INHALATION Q4H PRN PRN Reason: Wheezing Albuterol/Ipratropium (Ipratropium/Albuterol Sulfate 3 Ml Ampul.Neb) 3 ml IN HALATION Q6H.RT [facility] Last Admin: 09/02/20 07:06 Dose: 3 ml Documented by: Allopurinol (Allopurinol 100 Mg Tablet) 100 mg PO DAILYCM [facility] Last Admin: 09/02/20 09:26 Dose: 100 mg Documented by: Amiodarone HCl (Amiodarone 200 Mg Tablet) 200 mg PO DAILY [facility] Last Admin: 09/02/20 10:45 Dose: 200 mg Documented by: Aspirin (Aspirin 81 Mg Tab.Chew) 81 mg PO DAILY@0800 [facility] Last Admin: 09/02/20 09:26 Dose: 81 mg Documented by: Atorvastatin Calcium (Atorvastatin Calcium 80 Mg Tablet) 80 mg PO QHS [facility] Last Admin: 09/01/20 22:13 Dose: 80 mg Documented by: Budesonide (Budesonide Respules 0.5 Mg/2 Ml Ampul.Neb.) 0.5 mg INHALATION BID.RT [facility] Last Admin: 09/02/20 07:07 Dose: 0.5 mg Documented by: Clopidogrel Bisulfate (Clopidogrel Bisulfate 75 Mg Tablet) 75 mg PO DAILY [facility] Last Admin: 09/02/20 10:50 Dose: 75 mg Documented by: Dextrose (Dextrose 50%-Water 25 Gm/50 Ml Disp.Syrin) 0 gm IV X1 PRN; Protocol PRN Reason: Hypoglycemia Docusate Sodium (Docusate Sodium 100 Mg Capsule) 100 mg PO BID [facility] Last Admin: 09/02/20 10:46 Dose: Not Given Documented by: Finasteride (Finasteride 5 Mg Tablet) 5 mg PO DAILY [facility] Furosemide (Furosemide 40 Mg/4 Ml Vial) 40 mg IV Q8 [facility] Glucagon (Glucagon 1 Mg/Ml Syringe) 1 mg IM .X1 PRN PRN Reason: Hypoglycemia Sodium Chloride () 250 mls @ 15 mls/hr IV .[id number] PRN PRN Reason: Saline Flush Last Infusion: 09/01/20 13:19 Dose: 0 mls/hr Documented by: Sodium Chloride () 250 mls @ 15 mls/hr IV .[id number] PRN PRN Reason: Additional IVPB Infusion Piperacillin Sod/Tazobactam (Sod 3.375 gm/ Sodium Chloride) 50 mls @ 12.5 mls/h r IV Q12 [facility] Insulin Glargine (Insulin Glargine 100 Units/Ml Pen) 14 units SC QHS [facility] Last Admin: 09/01/20 22:31 Dose: 14 units Documented by: Insulin Human Lispro (Insulin Lispro 100 Unit/Ml Insuln.Pen) 0 unit SC ACHS [facility]; Protocol Last Admin: 09/02/20 11:43 Dose: Not Given Documented by: Levothyroxine Sodium (Levothyroxine 50 Mcg Tablet) 50 mcg PO DAILY@0600 [facility] Last Admin: 09/02/20 06:00 Dose: 50 mcg Documented by: Magnesium Hydroxide (Magnesium Hydroxide 30 Ml Udc) 30 ml PO DAILY PRN PRN PRN Reason: CONSTIPATION Metoprolol Succinate (Metoprolol(Xl)Succ 50 Mg Tablet) 50 mg PO DAILY [facility] Last Admin: 09/02/20 10:45 Dose: Not Given Documented by: Nitroglycerin (Nitroglycerin (Inpatient Use) 0.4 Mg Tab.Subl) 0.4 mg SUBLINGUAL Q5M PRN PRN Reason: Angina Nutritional Formula (Lactose Free) (Glucerna Shake 120 Ml Liquid) 120 ml PO 4X/DAY [facility] Last Admin: 09/02/20 10:46 Dose: Not Given Documented by: Ondansetron HCl (Ondansetron 4 Mg/2 Ml Vial) 4 mg IV Q6H PRN PRN PRN Reason: Nausea Last Admin: 09/01/20 19:52 Dose: 4 mg Documented by: Oxycodone HCl (Oxycodone 5 Mg Tablet) 5 mg PO Q4H PRN PRN PRN Reason: Pain Score 1-10 Last Admin: 09/01/20 22:17 Dose: 5 mg Documented by: Pantoprazole Sodium (Pantoprazole Sodium 20 Mg Tablet) 20 mg PO BID [facility] Last Admin: 09/02/20 10:44 Dose: 20 mg Documented by: Senna (Senna Tablet) 1 tablet PO DAILY [facility] Last Admin: 09/02/20 10:46 Dose: Not Given Documented by: Sodium Chloride (0.9% Saline Lock 10 Ml Syringe) 10 - 40 ml IV UD PRN PRN Reason: SALINE FLUSH Last Admin: 09/01/20 19:53 Dose: 10 ml Documented by: Tamsulosin HCl (Tamsulosin Hcl 0.4 Mg Capsule) 0.8 mg PO DAILY@0830 [facility] Assessment/Plan All Active Problems Hyperkalemia (Acute) GI bleed (Resolved) Supratherapeutic INR (Acute) Gross hematuria (Acute) Anticoagulation goal of INR 2.5 to 3.5 (Acute) Facial droop (Resolved) 1. Acute on CKD baseline creatinine 1.3 to 1.6 progressed to 2.14 in May 2020, 3.62 on 08/22/20, 2.8 yesterday to 3.24 today. Poor urine output with gross hematuria, blood clots. CT without iv contrast no hydro. Suspect prerenal event from ischemic cmp, hypotension. Pt poor prognosis with multiple comorbidities, poor dialysis candidate. He contradicts his responses regarding DNR status, dialysis. Unreliable to make decisions for himself. No family to contact. Pt was sent to [facility]CF after [facility] hospitalization due to inability to manage his medications or care for himself. Hx supratherapeutic INR with hemoptysis, now with gross hematuria 2. Hyperkalemia treat medically. 3. Gross hematuria following 4. mechanical AVR on anticoagulation 5. 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 Schizoaffective disorder, poor historian 7. Encephalopathy 8. Debility in ECF DW hospitalist
[2020-09-02] MEDS: Sodium Polystyrene Sulfonate 15 GM/60 ML UDC 30 GM PO (13:04)
--- NOTE | 2020-09-02 13:40 | CHAPLAIN ---
Type of Pastoral Visit _x__ Initial Visit ___ Follow-up Visit ___ On-call Visit ___ General Patient Visit ___ Spiritual Assessment ___ Family Conference ___ Bereavement ___ Rapid Response ___ Code Blue ___ Other (describe below) Pastoral Care Referral From _x__ Patient ___ Family ___ Nurse ___ Physician ___ Forensic Engineer ___ Laser Specialist ___ Other (describe below) Sacrament/Intervention ___ Active listening ___ Anointing ___ Worship ___ Bereavement ___ Communion ___ Dolores exploration ___ ___ Life review _x__ Prayer ___ Reconciliation ___ Sacrament of Sick _x__ Supportive presence ___ Wedding _x__ Other (describe below) Pastoral Comments patient did not talk but gave hand motions and head nods to indicate his welcome for presence, prayer, and scripture reading; sat at bedside and just talked with pt for a time to give presence
[2020-09-02] MEDS: Glucerna Shake 120 ML LIQUID PO ×2 (13:58→21:16)
--- NOTE | 2020-09-02 14:21 | PCM.HOSP.N ---
Hospitalist Note Additional note: I was able to obtain additional information on the patient through Nalini Fowler today concerning the patient's care. It appears that the patient filled out a living will in 2014, and this living well he declined any artificial feeding or life support if he became comatose or was in a state where he would not improve medically. And also named a power of compliance attorney for the patient-this is . Feng Lujan who I have not been able to contact despite phone calls today and yesterday. I even left a voicemail today for the patient to call me on my cell phone and as of the time of this dictation, he has not returned my call. I have decided to change the patient's CODE STATUS to DNR CC arrest without intubation, I had nephrology see the patient today and they felt that the patient would be a poor candidate for dialysis and I agree with this. I also agree that the patient's overall medical condition is very poor and if he was placed on mechanical ventilation, the likelihood of getting the patient off mechanical ventilation would be bleak. I have decided to continue the patient on IV Lasix at this time and hold his Coumadin due to persistent hematuria. I change the patient's antibiotic today to Zosyn for better coverage. Prognosis overall is poor for this patient, I do not believe the patient is able to understand the extent of his illness and make rational decisions at this time and so I have decided to make decisions on behalf of the patient according to his living will.
[2020-09-02] MEDS: Furosemide 40 MG/4 ML Vial IV ×2 (15:08→21:15)
[2020-09-02] MEDS: Insulin Lispro 100 UNIT/ML INSULN.PEN SC ×2 (16:50→21:16)
[2020-09-02 16:55] LABS: Bedside Glucose 185 mg/dL (70-110)
[2020-09-02 20:55] LABS: Bedside Glucose 170 mg/dL (70-110)
[2020-09-02] MEDS: Atorvastatin Calcium 80 MG Tablet PO (21:15)
[2020-09-02] MEDS: Docusate Sodium 100 MG Capsule PO (21:16)
[2020-09-02] MEDS: 0.9% Saline Lock 10 ML Syringe IV (21:17)
[2020-09-02 23:06] LABS: Bedside Glucose 163 mg/dL (70-110)
[2020-09-03] VITALS (25 sets, daily range): BP systolic 94–122; BP diastolic 47–70; PULSE 59–98; RESP 17–23; TEMP 36.4–37.1; O2SAT 93–100
[2020-09-03] MEDS: Ipratropium/Albuterol Sulfate 3 ML AMPUL.NEB INHALATION ×3 (00:45→21:25)
[2020-09-03 04:42] LABS: Hematocrit 23.8 % (40-54); Mean Corp Hgb Conc 29.4 g/dL (32-36); Mean Corpuscular Volume 91.9 fL (80-94); Mean Platelet Vol. 10.8 fl (6.2-12.0); Platelet Count 221 K/mm3 (150-450); RBC Distribution Width SD 59.7 fl (35.1-43.9); Red Blood Count 2.59 M/mm3 (4.6-6.2); White Blood Count 8.4 K/mm3 (4.4-11.0)
[2020-09-03 04:51] LABS: Prothrombin Time (Protime)PT. 38.6 SECONDS (11.7-14.9)
[2020-09-03 05:01] LABS: Anion Gap 5 (5-15); BUN 66 mg/dL (7-18); BUN/Creat Ratio 21.6 RATIO (10-20); Calcium,Total 8.7 mg/dL (8.5-10.1); Chloride 98 mmol/L (98-107); Creatinine, Serum 3.06 mg/dL (0.70-1.30); EST Glomerular Filtration Rate 21 mL/min (>60); Est Glom Filt Rate - Afr Amer 26 mL/min (>60); Estimated Creatinine Clearance 18.94 ml/min; Glucose 171 mg/dL (74-106); Potassium 4.1 mmol/L (3.5-5.1); Sodium Level 137 mmol/L (136-145)
[2020-09-03] MEDS: Levothyroxine 50 MCG Tablet PO (05:14)
[2020-09-03] MEDS: 0.9% Saline Lock 10 ML Syringe IV ×2 (05:14→10:05)
[2020-09-03] MEDS: Furosemide 40 MG/4 ML Vial IV ×3 (05:14→21:54)
[2020-09-03] MEDS: Insulin Lispro 100 UNIT/ML INSULN.PEN SC ×4 (07:01→21:53)
--- NOTE | 2020-09-03 07:20 | PCS.PANDOC ---
PANDEMIC DOCUMENTATION INITIATED: Date: 09/02/20 Time: 1025
[2020-09-03 07:26] LABS: Bedside Glucose 163 mg/dL (70-110)
[2020-09-03] MEDS: Budesonide Respules 0.5 MG/2 ML AMPUL.NEB. INHALATION ×2 (07:26→21:25)
[2020-09-03] MEDS: Glucerna Shake 120 ML LIQUID PO ×4 (09:01→21:56)
[2020-09-03] MEDS: Tamsulosin HCl 0.4 MG Capsule 0.8 MG PO (09:01)
[2020-09-03] MEDS: Allopurinol 100 MG Tablet PO (09:02)
[2020-09-03] MEDS: Pantoprazole Sodium 20 MG Tablet PO ×2 (09:02→21:55)
[2020-09-03] MEDS: Acetaminophen 325 MG Tablet PO (09:02)
[2020-09-03] MEDS: Docusate Sodium 100 MG Capsule PO ×2 (09:02→21:54)
[2020-09-03] MEDS: Amiodarone 200 MG Tablet PO (09:02)
[2020-09-03] MEDS: Senna Tablet 1 TABLET PO (09:02)
[2020-09-03] MEDS: Finasteride 5 MG Tablet PO (09:02)
[2020-09-03] MEDS: Metoprolol(XL)Succ 50 MG Tablet PO (09:02)
[2020-09-03] MEDS: Clopidogrel Bisulfate 75 MG Tablet PO (09:02)
[2020-09-03] MEDS: Aspirin 81 MG TAB.CHEW PO (09:02)
--- NOTE | 2020-09-03 11:17 | PCM.PROGNOTE ---
Patient Problems: Active and Suspected Problems Supratherapeutic INR (Acute) Gross hematuria (Acute) Subjective: Patient was seen and examined today, he received 2 units of packed red blood cells, his creatinine is slightly improved over yesterday, his white count is now normal. Patient's INR remains elevated at four despite being off Coumadin since admission. Patient still has visible hematuria. Patient appears more alert today than yesterday however. - Physical Exam Vitals/I&O's: Vital Signs Temp Pulse Resp BP Pulse Ox 97.6 F L 98 19 H 110/62 96 09/03/20 10:00 09/03/20 10:00 09/03/20 10:00 09/03/20 10:00 09/03/20 10:00 Oxygen Flow Rate (L/min) 8 Oxygen Delivery Method Venturi Mask Weight: 89.04 kg Body Mass Index (BMI) 29.8 Finger Stick Blood Glucose 188 Intake and Output for Last 24 Hours 09/01/20 09/02/20 09/03/20 23:59 23:59 23:59 Intake Total 241.5 / 241.5 550 / 550 534.25 / 534.25 Output Total 4675 / 4675 15338 / 63046 4300 / 4300 Balance -4433.5 / -4433.5 -9900 / -9900 -3765.75 / -3765.75 General: Alert, Cooperative, No apparent distress, Well developed, Well nourished HEENT: Atraumatic, PERRLA, EOMI, Normocephalic Oral: Moist Mucosa Neck: Supple, No JVD, Trachea Midline, Thyroid Normal Size and Texture Lungs: Clear to auscultation, Normal air movement, No rhonchi, No wheeze, No rales Cardiovascular: Normal S1, Normal S2, PMI Normal, Irregular Rate, No rub noted, No Gallop, - - Mechanical click noted at the apex Abdomen: Bowel Sounds Present, Soft, Non Tender, Non-Distended Extremities: No clubbing, No cyanosis, No edema, Capillary Refill Less than 3 Seconds Skin: No rashes, No breakdown Musculoskeletal: No Tenderness to Palpation of Joints or Extremities Neurological: Cranial nerves II-XII grossly intact, Neuro grossly intact, Sensory exam intact to light touch and pain, Coordination normal Psych/Mental Status: - - Patient is alert and answers simple questions appropriately Laboratory Results 09/01/20 06:45: Crossmatch See Detail 09/02/20 08:13: POC Glucose 170 H 09/02/20 11:40: POC Glucose 154 H 09/02/20 16:38: POC Glucose 185 H 09/02/20 21:14: POC Glucose 163 H 09/03/20 04:36: WBC 8.4, RBC 2.59 L, Hgb 7.0 L, Hct 23.8 L, MCV 91.9, MCH 27.0, MCHC 29.4 L, RDW Std Deviation 59.7 H, RDW Coeff of Yessi 18.0 H, Plt Count 221, MPV 10.8 09/03/20 04:36: Sodium 137, Potassium 4.1, Chloride 98, Carbon Dioxide 34.0 H, Anion Gap 5, BUN 66 H, Creatinine 3.06 H, Estim Creat Clear Calc 18.94, Est GFR (MDRD) Af Amer 26 L, Est GFR (MDRD) Non-Af 21 L, BUN/Creatinine Ratio 21.6 H, Glucose 171 H, Calcium 8.7 09/03/20 04:36: PT 38.6 H, INR 4.0 H* 09/03/20 06:43: POC Glucose 163 H Current Medications Acetaminophen (Acetaminophen 325 Mg Tablet) 325 mg PO Q4H PRN PRN PRN Reason: Pain Score 1-10 Last Admin: 09/03/20 09:02 Dose: 325 mg Documented by: Al Hydroxide/Mg Hydroxide (Mag Hydrox/Al Hydrox/Simeth 30 Ml Udc) 30 ml PO Q4H PRN PRN PRN Reason: gi distress Albuterol Sulfate (Albuterol 2.5 Mg/3 Ml Vial.Neb.) 2.5 mg INHALATION Q4H PRN PRN Reason: Wheezing Albuterol/Ipratropium (Ipratropium/Albuterol Sulfate 3 Ml Ampul.Neb) 3 ml INHALATION Q6H.RT [facility] Last Admin: 09/03/20 07:26 Dose: 3 ml Documented by: Allopurinol ([facility]op[facility]ol 100 Mg Tablet) [facility] Last Admin: 09/03/20 09:02 Dose: 100 mg Documented by: Amiodarone HCl (Amiodarone 200 Mg Tablet) 200 mg PO DAILY [facility] Last Admin: 09/03/20 09:02 Dose: 200 mg Documented by: Aspirin (Aspirin 81 Mg Tab.Chew) 81 mg PO DAILY@0800 [facility] Last Admin: 09/03/20 09:02 Dose: 81 mg Documented by: Atorvastatin Calcium (Atorvastatin Calcium 80 Mg Tablet) 80 mg PO QHS [facility] Last Admin: 09/02/20 21:15 Dose: 80 mg Documented by: Budesonide (Budesonide Respules 0.5 Mg/2 Ml Ampul.Neb.) 0.5 mg INHALATION BID.RT [facility] Last Admin: 09/03/20 07:26 Dose: 0.5 mg Documented by: Clopidogrel Bisulfate (Clopidogrel Bisulfate 75 Mg Tablet) 75 mg PO DAILY [facility] Last Admin: 09/03/20 09:02 Dose: 75 mg Documented by: Dextrose (Dextrose 50%-Water 25 Gm/50 Ml Disp.Syrin) 0 gm IV X1 PRN; Protocol PRN Reason: Hypoglycemia Docusate Sodium (Docusate Sodium 100 Mg Capsule) 100 mg PO BID [facility] Last Admin: 09/03/20 09:02 Dose: 100 mg Documented by: Finasteride (Finasteride 5 Mg Tablet) 5 mg PO DAILY [facility] Last Admin: 09/03/20 09:02 Dose: 5 mg Documented by: Furosemide (Furosemide 40 Mg/4 Ml Vial) 40 mg IV Q8 [facility] Last Admin: 09/03/20 05:14 Dose: 40 mg Documented by: Glucagon (Glucagon 1 Mg/Ml Syringe) 1 mg IM .X1 PRN PRN Reason: Hypoglycemia Sodium Chloride () 250 mls @ 15 mls/hr IV .[id number] PRN PRN Reason: Saline Flush Last Infusion: 09/03/20 07:00 Dose: 0 mls/hr Documented by: Sodium Chloride () 250 mls @ 15 mls/hr IV .[id number] PRN PRN Reason: Additional IVPB Infusion Piperacillin Sod/Tazobactam (Sod 3.375 gm/ Sodium Chloride) 50 mls @ 12.5 mls/hr IV Q12 [facility] Last Admin: 09/03/20 09:15 Dose: 12.5 mls/hr Documented by: Insulin Glargine (Insulin Glargine 100 Units/Ml Pen) 14 units SC QHS [facility] Last Admin: 09/02/20 21:16 Dose: 14 units Documented by: Insulin Human Lispro (Insulin Lispro 100 Unit/Ml Insuln.Pen) 0 unit SC [facility]; Protocol Last Admin: 09/03/20 07:01 Dose: 1 units Documented by: Levothyroxine Sodium (Levothyroxine 50 Mcg Tablet) 50 mcg PO DAILY@0600 [facility] Last Admin: 09/03/20 05:14 Dose: 50 mcg Documented by: Magnesium Hydroxide (Magnesium Hydroxide 30 Ml Udc) 30 ml PO DAILY PRN PRN PRN Reason: CONSTIPATION Metoprolol Succinate (Metoprolol(Xl)Succ 50 Mg Tablet) 50 mg PO DAILY [facility] Last Admin: 09/03/20 09:02 Dose: 50 mg Documented by: Nitroglycerin (Nitroglycerin (Inpatient Use) 0.4 Mg Tab.Subl) 0.4 mg SUBLINGUAL Q5M PRN PRN Reason: Angina Nutritional Formula (Lactose Free) (Glucerna Shake 120 Ml Liquid) 120 ml PO 4X/DAY [facility] Last Admin: 09/03/20 09:01 Dose: 120 ml Documented by: Ondansetron HCl (Ondansetron 4 Mg/2 Ml Vial) 4 mg IV Q6H PRN PRN PRN Reason: Nausea Last Admin: 09/01/20 19:52 Dose: 4 mg Documented by: Oxycodone HCl (Oxycodone 5 Mg Tablet) 5 mg PO Q4H PRN PRN PRN Reason: Pain Score 1-10 Last Admin: 09/01/20 22:17 Dose: 5 mg Documented by: Pantoprazole Sodium (Pantoprazole Sodium 20 Mg Tablet) 20 mg PO BID [facility] Last Admin: 09/03/20 09:02 Dose: 20 mg Documented by: Senna (Senna Tablet) 1 tablet PO DAILY [facility] Last Admin: 09/03/20 09:02 Dose: 1 tablet Documented by: Sodium Chloride (0.9% Saline Lock 10 Ml Syringe) 10 - 40 ml IV UD PRN PRN Reason: SALINE FLUSH Last Admin: 09/03/20 10:05 Dose: 10 ml Documented by: Tamsulosin HCl (Tamsulosin Hcl 0.4 Mg Capsule) 0.8 mg PO DAILY@0830 [facility] Last Admin: 09/03/20 09:01 Dose: 0.8 mg Documented by: Medical Necessity - Tobacco Use Smoking Status: Former smoker Tobacco Use: Non-smoker Assessment/Plan All Active Problems Hyperkalemia (Acute) GI bleed (Resolved) Supratherapeutic INR (Acute) Gross hematuria (Acute) Anticoagulation goal of INR 2.5 to 3.5 (Acute) Facial droop (Resolved) #1 chronic hypoxic respiratory failure secondary to chronic obstructive pulmonary disease and chronic systolic congestive heart failure-patient is currently on 50% Venturi mask and is satting at 96%. Patient remains a DNR CC arrest with no intubation #2 Acute on chronic systolic congestive heart failure-placed the patient on IV Lasix today, echocardiogram will be obtained #3 chronic kidney disease stage IV-patient's creatinine is improved today as compared with yesterday's lab, nephrology is participating in his care #4 atherosclerotic heart disease with recent BABATUNDE in 03/2020-patient will need to remain on Plavix and aspirin #5 ischemic cardiomyopathy/history of dilated cardiomyopathy-patient's repeat echocardiogram showed an EF of 30% with mild pulmonary hypertension. #6 chronic obstructive pulmonary disease #7 Schizoaffective disorder-patient remains off of any psychiatric medications at this time and appears stable #8 chronic atrial fibrillation- rate appears controlled at this time #9 mechanical aortic heart valve-patient will remain off Coumadin due to his severe hematuria #10 type 2 diabetes-patient's blood sugars will be monitored, sliding scale insulin was ordered #11 chronic anemia-possibly secondary to chronic kidney disease #12 GERD #13 hyperlipidemia #14 hypothyroidism #15 hyperkalemia-resolved #16 acute on chronic anemia secondary to acute hematuria-patient CBC will be rechecked tomorrow Prognosis remains guarded at this time due to the fact the patient has multiple medical problems Inpatient E&M: [id number] [facility] Hosp L2
[2020-09-03 11:30] LABS: Bedside Glucose 247 mg/dL (70-110)
--- NOTE | 2020-09-03 12:31 | PN_ITS ---
Patient Problems: Active and Suspected Problems Supratherapeutic INR (Acute) Gross hematuria (Acute) Subjective: continues to have bleeding InR back up hold all blood thinners. - Physical Exam Vitals/I&O's: Vital Signs Temp Pulse Resp BP Pulse Ox 97.6 F L 98 19 H 110/62 96 09/03/20 10:00 09/03/20 10:00 09/03/20 10:00 09/03/20 10:00 09/03/20 10:00 Oxygen Flow Rate (L/min) 8 Oxygen Delivery Method Venturi Mask Weight: 89.04 kg Body Mass Index (BMI) 29.8 Finger Stick Blood Glucose 188 Intake and Output for Last 24 Hours 09/01/20 09/02/20 09/03/20 23:59 23:59 23:59 Intake Total 241.5 / 241.5 550 / 550 1014.25 / 1014.25 Output Total 4675 / 4675 72916 / 60577 6550 / 6550 Balance -4433.5 / -4433.5 -9900 / -9900 -5535.75 / -5535.75 General: Alert, Oriented x3, Cooperative HEENT: Atraumatic, PERRLA, EOMI, Normocephalic Neck: Supple, No JVD, Negative Carotid Bruits Lungs: Clear to auscultation, Normal air movement Cardiovascular: Regular rate, No murmurs Abdomen: Bowel Sounds Present, Soft, Non Tender Extremities: No edema, Capillary Refill Less than 3 Seconds Skin: No rashes, No breakdown Musculoskeletal: No Tenderness to Palpation of Joints or Extremities Neurological: Cranial nerves II-XII grossly intact Psych/Mental Status: Normal Affect, Appropriate Laboratory Results 09/01/20 06:45: Crossmatch See Detail 09/02/20 08:13: POC Glucose 170 H 09/02/20 16:38: POC Glucose 185 H 09/02/20 21:14: POC Glucose 163 H 09/03/20 04:36: WBC 8.4, RBC 2.59 L, Hgb 7.0 L, Hct 23.8 L, MCV 91.9, MCH 27.0, MCHC 29.4 L, RDW Std Deviation 59.7 H, RDW Coeff of Yessi 18.0 H, Plt Count 221, MPV 10.8 09/03/20 04:36: Sodium 137, Potassium 4.1, Chloride 98, Carbon Dioxide 34.0 H, Anion Gap 5, BUN 66 H, Creatinine 3.06 H, Estim Creat Clear Calc 18.94, Est GFR (MDRD) Af Amer 26 L, Est GFR (MDRD) Non-Af 21 L, BUN/Creatinine Ratio 21.6 H, Glucose 171 H, Calcium 8.7 09/03/20 04:36: PT 38.6 H, INR 4.0 H* 09/03/20 06:43: POC Glucose 163 H 09/03/20 11:20: POC Glucose 247 H Current Medications Acetaminophen (Acetaminophen 325 Mg Tablet) 325 mg PO Q4H PRN PRN PRN Reason: Pain Score 1-10 Last Admin: 09/03/20 09:02 Dose: 325 mg Documented by: Al Hydroxide/Mg Hydroxide (Mag Hydrox/Al Hydrox/Simeth 30 Ml Udc) 30 ml PO Q4H PRN PRN PRN Reason: gi distress Albuterol Sulfate (Albuterol 2.5 Mg/3 Ml Vial.Neb.) 2.5 mg INHALATION Q4H PRN PRN Reason: Wheezing Albuterol/Ipratropium (Ipratropium/Albuterol Sulfate 3 Ml Ampul.Neb) 3 ml INHALATION Q6H.RT [facility] Last Admin: 09/03/20 07:26 Dose: 3 ml Documented by: Allopurinol ([facility] 100 Mg Tablet) [facility] Last Admin: 09/03/20 09:02 Dose: 100 mg Documented by: Amiodarone HCl (Amiodarone 200 Mg Tablet) 200 mg PO DAILY [facility] Last Admin: 09/03/20 09:02 Dose: 200 mg Documented by: Aspirin (Aspirin 81 Mg Tab.Chew) 81 mg PO DAILY@0800 [facility] Last Admin: 09/03/20 09:02 Dose: 81 mg Documented by: Atorvastatin Calcium (Atorvastatin Calcium 80 Mg Tablet) 80 mg PO QHS [facility] Last Admin: 09/02/20 21:15 Dose: 80 mg Documented by: Budesonide (Budesonide Respules 0.5 Mg/2 Ml Ampul.Neb.) 0.5 mg INHALATION BID.RT [facility] Last Admin: 09/03/20 07:26 Dose: 0.5 mg Documented by: Clopidogrel Bisulfate (Clopidogrel Bisulfate 75 Mg Tablet) 75 mg PO DAILY [facility] Last Admin: 09/03/20 09:02 Dose: 75 mg Documented by: Dextrose (Dextrose 50%-Water 25 Gm/50 Ml Disp.Syrin) 0 gm IV X1 PRN; Protocol PRN Reason: Hypoglycemia Docusate Sodium (Docusate Sodium 100 Mg Capsule) 100 mg PO BID [facility] Last Admin: 09/03/20 09:02 Dose: 100 mg Documented by: Finasteride (Finasteride 5 Mg Tablet) 5 mg PO DAILY [facility] Last Admin: 09/03/20 09:02 Dose: 5 mg Documented by: Furosemide (Furosemide 40 Mg/4 Ml Vial) 40 mg IV Q8 [facility] Last Admin: 09/03/20 05:14 Dose: 40 mg Documented by: Glucagon (Glucagon 1 Mg/Ml Syringe) 1 mg IM .X1 PRN PRN Reason: Hypoglycemia Sodium Chloride () 250 mls @ 15 mls/hr IV .[id number] PRN PRN Reason: Saline Flush Last Infusion: 09/03/20 07:00 Dose: 0 mls/hr Documented by: Sodium Chloride () 250 mls @ 15 mls/hr IV .[id number] PRN PRN Reason: Additional IVPB Infusion Piperacillin Sod/Tazobactam (Sod 3.375 gm/ Sodium Chloride) 50 mls @ 12.5 mls/hr IV Q12 [facility] Last Admin: 09/03/20 09:15 Dose: 12.5 mls/hr Documented by: Insulin Glargine (Insulin Glargine 100 Units/Ml Pen) 14 units SC QHS [facility] Last Admin: 09/02/20 21:16 Dose: 14 units Documented by: Insulin Human Lispro (Insulin Lispro 100 Unit/Ml Insuln.Pen) 0 unit SC ACHS [facility]; Protocol Last Admin: 09/03/20 11:57 Dose: 2 units Documented by: Levothyroxine Sodium (Levothyroxine 50 Mcg Tablet) 50 mcg PO DAILY@0600 [facility] Last Admin: 09/03/20 05:14 Dose: 50 mcg Documented by: Magnesium Hydroxide (Magnesium Hydroxide 30 Ml Udc) 30 ml PO DAILY PRN PRN PRN Reason: CONSTIPATION Metoprolol Succinate (Metoprolol(Xl)Succ 50 Mg Tablet) 50 mg PO DAILY [facility] Last Admin: 09/03/20 09:02 Dose: 50 mg Documented by: Nitroglycerin (Nitroglycerin (Inpatient Use) 0.4 Mg Tab.Subl) 0.4 mg SUBLINGUAL Q5M PRN PRN Reason: Angina Nutritional Formula (Lactose Free) (Glucerna Shake 120 Ml Liquid) 120 ml PO 4X/DAY [facility] Last Admin: 09/03/20 09:01 Dose: 120 ml Documented by: Ondansetron HCl (Ondansetron 4 Mg/2 Ml Vial) 4 mg IV Q6H PRN PRN PRN Reason: Nausea Last Admin: 09/01/20 19:52 Dose: 4 mg Documented by: Oxycodone HCl (Oxycodone 5 Mg Tablet) 5 mg PO Q4H PRN PRN PRN Reason: Pain Score 1-10 Last Admin: 09/01/20 22:17 Dose: 5 mg Documented by: Pantoprazole Sodium (Pantoprazole Sodium 20 Mg Tablet) 20 mg PO BID [facility] Last Admin: 09/03/20 09:02 Dose: 20 mg Documented by: Senna (Senna Tablet) 1 tablet PO DAILY [facility] Last Admin: 09/03/20 09:02 Dose: 1 tablet Documented by: Sodium Chloride (0.9% Saline Lock 10 Ml Syringe) 10 - 40 ml IV UD PRN PRN Reason: SALINE FLUSH Last Admin: 09/03/20 10:05 Dose: 10 ml Documented by: Tamsulosin HCl (Tamsulosin Hcl 0.4 Mg Capsule) 0.8 mg PO DAILY@0830 [facility] Last Admin: 09/03/20 09:01 Dose: 0.8 mg Documented by: Medical Necessity - Tobacco Use Smoking Status: Former smoker Tobacco Use: Non-smoker Assessment/Plan All Active Problems Hyperkalemia (Acute) GI bleed (Resolved) Supratherapeutic INR (Acute) Gross hematuria (Acute) Anticoagulation goal of INR 2.5 to 3.5 (Acute) Facial droop (Resolved) plan for intervention with cystoscopy evacuation of clots possible TUrP. npo at [place], change cain to 20 fr
--- NOTE | 2020-09-03 14:57 | CASEMGMT ---
SW faxed updated clinicals to [facility]. SW to continue to follow. Naomi RAMIREZ MSW
[2020-09-03 17:26] LABS: Bedside Glucose 238 mg/dL (70-110)
[2020-09-03] MEDS: Atorvastatin Calcium 80 MG Tablet PO (21:54)
[2020-09-03 21:56] LABS: Bedside Glucose 206 mg/dL (70-110)
[2020-09-04] VITALS (31 sets, daily range): BP systolic 92–130; BP diastolic 52–91; PULSE 61–99; RESP 14–26; TEMP 36.1–36.9; O2SAT 92–100; BMI 29.8
[2020-09-04 05:13] LABS: Hematocrit 24.3 % (40-54); Hemoglobin 7.3 g/dL (13.0-16.5); Mean Corpuscular Hgb 27.8 pg (27.0-32.0); Mean Corpuscular Volume 92.4 fL (80-94); Mean Platelet Vol. 10.6 fl (6.2-12.0); Platelet Count 205 K/mm3 (150-450); RBC Distribution Width CV 17.5 % (11.6-14.6); RBC Distribution Width SD 59.3 fl (35.1-43.9); Red Blood Count 2.63 M/mm3 (4.6-6.2); White Blood Count 9.2 K/mm3 (4.4-11.0)
[2020-09-04 05:22] LABS: International Normalized Ratio 2.3; Prothrombin Time (Protime)PT. 25.2 SECONDS (11.7-14.9)
[2020-09-04 05:27] LABS: Anion Gap 4 (5-15); BUN 62 mg/dL (7-18); Calcium,Total 8.3 mg/dL (8.5-10.1); Chloride 95 mmol/L (98-107); Creatinine, Serum 2.69 mg/dL (0.70-1.30); EST Glomerular Filtration Rate 24 mL/min (>60); Est Glom Filt Rate - Afr Amer 30 mL/min (>60); Estimated Creatinine Clearance 21.54 ml/min; Glucose 187 mg/dL (74-106); Potassium 3.8 mmol/L (3.5-5.1); Sodium Level 135 mmol/L (136-145)
--- NOTE | 2020-09-04 05:55 | EKG12_ITS ---
Test Reason : AM EKG Blood Pressure : / mmHG Vent. Rate : 069 BPM Atrial Rate : 326 BPM P-R Int : 000 ms QRS Dur : 174 ms QT Int : 482 ms P-R-T Axes : 000 -67 113 degrees QTc Int : 516 ms Atrial fibrillation Left axis deviation Left bundle branch block Abnormal ECG When compared with ECG of 02-SEP-2020 08:32, MANUAL COMPARISON REQUIRED, DATA IS UNCONFIRMED Confirmed by DELORES RESENDEZ, JAMES ([id number]), assignment editor MANFRED CASILLAS ([id number]) on 09/07/2020 12:34:43 P M Referred By: DR DE LA FUENTE Confirmed By:CULLEN ESTRELLA MD
[2020-09-04] MEDS: Levothyroxine 50 MCG Tablet PO (05:56)
[2020-09-04] MEDS: Furosemide 40 MG/4 ML Vial IV ×2 (05:56→21:50)
[2020-09-04 06:45] LABS: Bedside Glucose 172 mg/dL (70-110)
[2020-09-04] MEDS: Budesonide Respules 0.5 MG/2 ML AMPUL.NEB. INHALATION ×2 (07:07→20:27)
[2020-09-04] MEDS: Ipratropium/Albuterol Sulfate 3 ML AMPUL.NEB INHALATION ×4 (07:07→20:27)
[2020-09-04] MEDS: Docusate Sodium 100 MG Capsule PO ×2 (08:10→21:55)
[2020-09-04] MEDS: Finasteride 5 MG Tablet PO (08:10)
[2020-09-04] MEDS: Amiodarone 200 MG Tablet PO (08:11)
[2020-09-04] MEDS: Pantoprazole Sodium 20 MG Tablet PO ×2 (08:11→21:55)
[2020-09-04] MEDS: Tamsulosin HCl 0.4 MG Capsule 0.8 MG PO (08:11)
[2020-09-04] MEDS: Metoprolol(XL)Succ 50 MG Tablet PO (08:11)
[2020-09-04] MEDS: Allopurinol 100 MG Tablet PO (08:12)
[2020-09-04] MEDS: Senna Tablet 1 TABLET PO (08:12)
--- NOTE | 2020-09-04 10:00 | CASEMGMT ---
DARRON called Jackie at [facility] and left her a voice mail letting her know patient may be discharged over the weekend. DARRON also faxed her patient's negative COVID test from -. DARRON asked her to let SW know if this test is ok if patient is d/c'd on Monday. Each alf seems to have their own requirements on testing for patients. DARRON put a green sheet on patient's chart. Plan: d/c back to [facility] under skilled level of care. Naomi RAMIREZ MSW
--- NOTE | 2020-09-04 10:30 | CASEMGMT ---
DARRON spoke with Jackie from [facility]. Patient is fine to return over the weekend if he is ready. Also, the COVID test from - is fine. Naomi RAMIREZ MSW
[2020-09-04 11:15] LABS: Bedside Glucose 158 mg/dL (70-110)
--- NOTE | 2020-09-04 11:44 | PCM.PN.REN ---
Patient Problems: Active and Suspected Problems Supratherapeutic INR (Acute) Gross hematuria (Acute) Subjective: renal fxn continues to improve. More awake, responsive today. Denies CP, SOB. Edema improved. Denies nausea, vomiting. Hungry. Urine output improved. Cysto for hematuria. - Physical Exam Vitals/I&O's: Vital Signs Temp Pulse Resp BP Pulse Ox 97.5 F L 80 18 109/52 L 98 09/04/20 08:08 09/04/20 08:11 09/04/20 08:08 09/04/20 08:11 09/04/20 08:08 Oxygen Flow Rate (L/min) 2.5 Oxygen Delivery Method Nasal Cannula Weight: 89.04 kg Body Mass Index (BMI) 29.8 Finger Stick Blood Glucose 188 Intake and Output for Last 24 Hours 09/02/20 09/03/20 09/04/20 23:59 23:59 23:59 Intake Total 550 / 550 1538.00 / 1538.00 137.25 / 137.25 Output Total 71379 / 45510 72391 / 72688 7200 / 7200 Balance -9900 / -9900 -01377.00 / -93251.00 -7062.75 / -7062.75 General: Alert, Oriented x3, Cooperative Lungs: Clear to auscultation Cardiovascular: Irregular Rate - afib, Murmur, - - S2 click Abdomen: Bowel Sounds Present, Soft, Non Tender, Non-Distended Microbiology Past 72 Hours 09/03/20 16:00 Mucosa - Nasopharyngeal SARS-CoV-2 Antigen (Rapid) - Final Laboratory Results 09/03/20 17:17: POC Glucose 238 H 09/03/20 21:51: POC Glucose 206 H 09/04/20 04:56: WBC 9.2, RBC 2.63 L, Hgb 7.3 L, Hct 24.3 L, MCV 92.4, MCH 27.8, MCHC 30.0 L, RDW Std Deviation 59.3 H, RDW Coeff of Yessi 17.5 H, Plt Count 205, MPV 10.6 09/04/20 04:56: Sodium 135 L, Potassium 3.8, Chloride 95 L, Carbon Dioxide 36.0 H, Anion Gap 4 L, BUN 62 H, Creatinine 2.69 H, Estim Creat Clear Calc 21.54, Est GFR (MDRD) Af Amer 30 L, Est GFR (MDRD) Non-Af 24 L, BUN/Creatinine Ratio 23.0 H, Glucose 187 H, Calcium 8.3 L 09/04/20 04:56: PT 25.2 H, INR 2.3 09/04/20 06:37: POC Glucose 172 H 09/04/20 08:05: Blood Type B POSITIVE, Antibody Screen NEGATIVE 09/04/20 08:05: Blood Type Cancelled, A1 Antigen Typing Cancelled, Rho(D) Type Cancelled, Antibody Screen Cancelled, Crossmatch See Detail 09/04/20 11:05: POC Glucose 158 H Current Medications Acetaminophen (Acetaminophen 325 Mg Tablet) 325 mg PO Q4H PRN PRN PRN Reason: Pain Score 1-10 Last Admin: 09/03/20 09:02 Dose: 325 mg Documented by: Al Hydroxide/Mg Hydroxide (Mag Hydrox/Al Hydrox/Simeth 30 Ml Udc) 30 ml PO Q4H PRN PRN PRN Reason: gi distress Albuterol Sulfate (Albuterol 2.5 Mg/3 Ml Vial.Neb.) 2.5 mg INHALATION Q4H PRN PRN Reason: Wheezing Albuterol/Ipratropium (Ipratropium/Albuterol Sulfate 3 Ml Ampul.Neb) 3 ml INHALATION Q6H.RT [facility] Last Admin: 09/04/20 07:07 Dose: 3 ml Documented by: Allopurinol (Allopurinol 100 Mg Tablet) 100 mg PO DAILYCM [facility] Last Admin: 09/04/20 08:12 Dose: 100 mg Documented by: Amiodarone HCl (Amiodarone 200 Mg Tablet) 200 mg PO DAILY [facility] Last Admin: 09/04/20 08:11 Dose: 200 mg Documented by: Aspirin (Aspirin 81 Mg Tab.Chew) 81 mg PO DAILY@0800 [facility] Last Admin: 09/04/20 08:14 Dose: Not Given Documented by: Atorvastatin Calcium (Atorvastatin Calcium 80 Mg Tablet) 80 mg PO QHS [facility] Last Admin: 09/03/20 21:54 Dose: 80 mg Documented by: Budesonide (Budesonide Respules 0.5 Mg/2 Ml Ampul.Neb.) 0.5 mg INHALATION BID.RT [facility] Last Admin: 09/04/20 07:07 Dose: 0.5 mg Documented by: Clopidogrel Bisulfate (Clopidogrel Bisulfate 75 Mg Tablet) 75 mg PO DAILY [facility] Last Admin: 09/04/20 08:14 Dose: Not Given Documented by: Dextrose (Dextrose 50%-Water 25 Gm/50 Ml Disp.Syrin) 0 gm IV X1 PRN; Protocol PRN Reason: Hypoglycemia Docusate Sodium (Docusate Sodium 100 Mg Capsule) 100 mg PO BID [facility] Last Admin: 09/04/20 08:10 Dose: 100 mg Documented by: Finasteride (Finasteride 5 Mg Tablet) 5 mg PO DAILY [facility] Last Admin: 09/04/20 08:10 Dose: 5 mg Documented by: Furosemide (Furosemide 40 Mg/4 Ml Vial) 40 mg IV Q8 [facility] Last Admin: 09/04/20 05:56 Dose: 40 mg Documented by: Glucagon (Glucagon 1 Mg/Ml Syringe) 1 mg IM .X1 PRN PRN Reason: Hypoglycemia Sodium Chloride () 250 mls @ 15 mls/hr IV .[id number] PRN PRN Reason: Saline Flush Last Infusion: 09/04/20 04:33 Dose: 0 mls/hr Documented by: Sodium Chloride () 250 mls @ 15 mls/hr IV .[id number] PRN PRN Reason: Additional IVPB Infusion Piperacillin Sod/Tazobactam (Sod 3.375 gm/ Sodium Chloride) 50 mls @ 12.5 mls/hr IV Q8 [facility] Last Admin: 09/04/20 08:13 Dose: 12.5 mls/hr Documented by: Insulin Glargine (Insulin Glargine 100 Units/Ml Pen) 14 units SC QHS [facility] Last Admin: 09/03/20 21:53 Dose: 14 units Documented by: Insulin Human Lispro (Insulin Lispro 100 Unit/Ml Insuln.Pen) 0 unit SC ACHS [facility]; Protocol Last Admin: 09/04/20 11:31 Dose: Not Given Documented by: Levothyroxine Sodium (Levothyroxine 50 Mcg Tablet) 50 mcg PO DAILY@0600 [facility] Last Admin: 09/04/20 05:56 Dose: 50 mcg Documented by: Magnesium Hydroxide (Magnesium Hydroxide 30 Ml Udc) 30 ml PO DAILY PRN PRN PRN Reason: CONSTIPATION Metoprolol Succinate (Metoprolol(Xl)Succ 50 Mg Tablet) 50 mg PO DAILY [facility] Last Admin: 09/04/20 08:11 Dose: 50 mg Documented by: Nitroglycerin (Nitroglycerin (Inpatient Use) 0.4 Mg Tab.Subl) 0.4 mg SUBLINGUAL Q5M PRN PRN Reason: Angina Nutritional Formula (Lactose Free) (Glucerna Shake 120 Ml Liquid) 120 ml PO 4X/DAY [facility] Last Admin: 09/04/20 11:31 Dose: Not Given Documented by: Ondansetron HCl (Ondansetron 4 Mg/2 Ml Vial) 4 mg IV Q6H PRN PRN PRN Reason: Nausea Last Admin: 09/01/20 19:52 Dose: 4 mg Documented by: Oxycodone HCl (Oxycodone 5 Mg Tablet) 5 mg PO Q4H PRN PRN PRN Reason: Pain Score 1-10 Last Admin: 09/01/20 22:17 Dose: 5 mg Documented by: Pantoprazole Sodium (Pantoprazole Sodium 20 Mg Tablet) 20 mg PO BID [facility] Last Admin: 09/04/20 08:11 Dose: 20 mg Documented by: Senna (Senna Tablet) 1 tablet PO DAILY [facility] Last Admin: 09/04/20 08:12 Dose: 1 tablet Documented by: Sodium Chloride (0.9% Saline Lock 10 Ml Syringe) 10 - 40 ml IV UD PRN PRN Reason: SALINE FLUSH Last Admin: 09/03/20 10:05 Dose: 10 ml Documented by: Tamsulosin HCl (Tamsulosin Hcl 0.4 Mg Capsule) 0.8 mg PO DAILY@0830 [facility] Last Admin: 09/04/20 08:11 Dose: 0.8 mg Documented by: Medical Necessity - Tobacco Use Smoking Status: Former smoker Tobacco Use: Non-smoker Assessment/Plan All Active Problems Hyperkalemia (Acute) GI bleed (Resolved) Supratherapeutic INR (Acute) Gross hematuria (Acute) Anticoagulation goal of INR 2.5 to 3.5 (Acute) Facial droop (Resolved) 1. Acute on CKD baseline creatinine 1.3 to 1.6. Creatinine improving with good UOP. 2. Hyperkalemia resolved 3. Gross hematuria cysto today 4. mechanical AVR on anticoagulation 5. 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 Schizoaffective disorder 7. Encephalopathy improved 8. Debility in ECF DW hospitalist
--- NOTE | 2020-09-04 12:55 | CASEMGMT ---
DARRON received a message to call Mariama Bryan with [facility]. DARRON called Mariama and gave her patient's admitting diagnosis and date. She asked that d/c information be faxed to her at discharge. Plan: d/c back to [facility] under skilled level of care when ready. Green sheet on his chart in the event he is ready over the weekend. Naomi RAMIREZ MSW
[2020-09-04 15:30] LABS: International Normalized Ratio 1.7; Prothrombin Time (Protime)PT. 19.8 SECONDS (11.7-14.9)
--- NOTE | 2020-09-04 16:37 | OP.PCM_ITS ---
Problem List (1) Gross hematuria Status: Acute Report of Operation Date of Procedure: 09/04/20 Pre-Operative Diagnosis: Gross hematuria and clot retention Post-Operative Diagnosis: Same Surgery/Procedure Performed:: Cystoscopy evacuation of blood clots transurethral resection with a bipolar resectoscope using the button Olympus Description of Surgical Findings:: In the preoperative setting I discussed with the patient how the surgery would be done with expect afterwards. We discussed how a prostate resection is done and we discussed the risk of the surgery including, bleeding, infection, retrograde ejaculation, changes with ejaculation or intercourse,. We discussed the possibility that the resection of the prostate may not alleviate his urinary symptoms. We discussed the small risk of developing scar tissue along the urethral channel and strictures. We also discussed the chance of the prostate could grow back and he may need further surgery or treatment in the future for prostate problems. He had clot retention which has failed conservative measures and plan to take to surgery. Patient was taken back to the operating room, timeout procedure was performed, he was identified and marked and placed on the operating room table. He underwent general anesthesia. He was placed in dorsolithotomy position. The 22fr cain was removed from the bladder. The penis and testicles were prepped and draped in usual sterile fashion. Went into the bladder using the visual obturator with a resectoscope. Once inside the bladder identified the right and left ureteral orifice. I then identified the prostate and the anatomy of the prostate. Then clots in the bladder were removed using ellick evacuator. After clearing out the clots I then marked out the area of the sphincter and the verumontanum was identified. I then proceeded with the prostate resection using the button olympus system. And then resected the right lobe of the prostate. Then to resect the left lobe of the prostate. I then resected the apical tissue of the prostate. Made sure that there was no injury to the sphincter or the verumontanum was still intact. At the end of the resection all clots were Ellik out of the bladder. I then identified the left and right ureteral orifice and these were confirmed to be in good position and effluxing and not injured. The resectoscope was removed, a 22 Beninese catheter was placed into the bladder on continuous irrigation. And the urine was fairly light pink color and draining normally. He was taken back to the PACU in good condition. Type of Anesthesia:: General Drains: 22fr 3 way - Admit VTE Documentation VTE Present on Admission: No VTE Mechan Device Prophylaxis: SCD's
[2020-09-04 17:15] LABS: Bedside Glucose 188 mg/dL (70-110)
[2020-09-04] MEDS: Albuterol 2.5 MG/3 ML VIAL.NEB. INHALATION (17:31)
--- NOTE | 2020-09-04 17:34 | CPS ---
PATIENT RECIEVED DUONEB TIMES 1 IN PACU.
--- NOTE | 2020-09-04 18:13 | PCM.PROGNOTE ---
Patient Problems: Active and Suspected Problems Supratherapeutic INR (Acute) Gross hematuria (Acute) Subjective: Patient was seen and examined this morning, his INR is improved, I talked briefly with urology who took the patient for cystoscopy and prostate transurethral resection with a bipolar resectoscope using the button Olympus. Patient appeared to tolerate the surgery well, patient's creatinine was improved today and his oxygenation was improved. Objective: General: Alert, Cooperative, No apparent distress, Well developed, Well nourished HEENT: Atraumatic, PERRLA, EOMI, Normocephalic Oral: Moist Mucosa Neck: Supple, No JVD, Trachea Midline, Thyroid Normal Size and Texture Lungs: Clear to auscultation, Normal air movement, No rhonchi, No wheeze, No rales Cardiovascular: Normal S1, Normal S2, PMI Normal, Irregular Rate, No rub noted, No Gallop, - - Mechanical click noted at the apex Abdomen: Bowel Sounds Present, Soft, Non Tender, Non-Distended Extremities: No clubbing, No cyanosis, No edema, Capillary Refill Less than 3 Seconds Skin: No rashes, No breakdown Musculoskeletal: No Tenderness to Palpation of Joints or Extremities Neurological: Cranial nerves II-XII grossly intact, Neuro grossly intact, Sensory exam intact to light touch and pain, Coordination normal Psych/Mental Status: - - Patient is alert and answers simple questions appropriately - Physical Exam Vitals/I&O's: Vital Signs Temp Pulse Resp BP Pulse Ox 97.8 F 70 18 105/60 96 09/04/20 18:00 09/04/20 18:00 09/04/20 18:00 09/04/20 18:00 09/04/20 18:00 Oxygen Flow Rate (L/min) 2.5 Oxygen Delivery Method Nasal Cannula Weight: 89.04 kg Body Mass Index (BMI) 29.8 Finger Stick Blood Glucose 188 Intake and Output for Last 24 Hours 09/02/20 09/03/20 09/04/20 23:59 23:59 23:59 Intake Total 550 / 550 1538.00 / 1538.00 587.25 / 587.25 Output Total 64408 / 39372 06776 / 78197 7500 / 7500 Balance -9900 / -9900 -30777.00 / -16011.00 -6912.75 / -6912.75 Microbiology Past 72 Hours 09/03/20 16:00 Mucosa - Nasopharyngeal SARS-CoV-2 Antigen (Rapid) - Final Laboratory Results 09/01/20 06:45: Crossmatch See Detail 09/03/20 21:51: POC Glucose 206 H 09/04/20 04:56: WBC 9.2, RBC 2.63 L, Hgb 7.3 L, Hct 24.3 L, MCV 92.4, MCH 27.8, MCHC 30.0 L, RDW Std Deviation 59.3 H, RDW Coeff of Yessi 17.5 H, Plt Count 205, MPV 10.6 09/04/20 04:56: Sodium 135 L, Potassium 3.8, Chloride 95 L, Carbon Dioxide 36.0 H, Anion Gap 4 L, BUN 62 H, Creatinine 2.69 H, Estim Creat Clear Calc 21.54, Est GFR (MDRD) Af Amer 30 L, Est GFR (MDRD) Non-Af 24 L, BUN/Creatinine Ratio 23.0 H, Glucose 187 H, Calcium 8.3 L 09/04/20 04:56: PT 25.2 H, INR 2.3 09/04/20 06:37: POC Glucose 172 H 09/04/20 08:05: Blood Type B POSITIVE, Antibody Screen NEGATIVE 09/04/20 08:05: Blood Type Cancelled, A1 Antigen Typing Cancelled, Rho(D) Type Cancelled, Antibody Screen Cancelled, Crossmatch See Detail 09/04/20 11:05: POC Glucose 158 H 09/04/20 15:05: PT 19.8 H, INR 1.7 09/04/20 17:10: POC Glucose 188 H Current Medications Acetaminophen (Acetaminophen 325 Mg Tablet) 325 mg PO Q4H PRN PRN PRN Reason: Pain Score 1-10 Last Admin: 09/03/20 09:02 Dose: 325 mg Documented by: Al Hydroxide/Mg Hydroxide (Mag Hydrox/Al Hydrox/Simeth 30 Ml Udc) 30 ml PO Q4H PRN PRN PRN Reason: gi distress Albuterol Sulfate (Albuterol 2.5 Mg/3 Ml Vial.Neb.) 2.5 mg INHALATION Q4H PRN PRN Reason: Wheezing Last Admin: 09/04/20 17:31 Dose: 2.5 mg Documented by: Albuterol/Ipratropium (Ipratropium/Albuterol Sulfate 3 Ml Ampul.Neb) 3 ml INHALATION Q6H.RT [facility] Last Admin: 09/04/20 13:11 Dose: 3 ml Documented by: Allopurinol (Allopurinol 100 Mg Tablet) 100 mg PO DAILYCM [facility] Last Admin: 09/04/20 08:12 Dose: 100 mg Documented by: Amiodarone HCl (Amiodarone 200 Mg Tablet) 200 mg PO DAILY [facility] Last Admin: 09/04/20 08:11 Dose: 200 mg Documented by: Aspirin (Aspirin 81 Mg Tab.Chew) 81 mg PO DAILY@0800 [facility] Last Admin: 09/04/20 08:14 Dose: Not Given Documented by: Atorvastatin Calcium (Atorvastatin Calcium 80 Mg Tablet) 80 mg PO QHS [facility] Last Admin: 09/03/20 21:54 Dose: 80 mg Documented by: Budesonide (Budesonide Respules 0.5 Mg/2 Ml Ampul.Neb.) 0.5 mg INHALATION BID.RT [facility] Last Admin: 09/04/20 07:07 Dose: 0.5 mg Documented by: Clopidogrel Bisulfate (Clopidogrel Bisulfate 75 Mg Tablet) 75 mg PO DAILY [facility] Last Admin: 09/04/20 08:14 Dose: Not Given Documented by: Dextrose (Dextrose 50%-Water 25 Gm/50 Ml Disp.Syrin) 0 gm IV X1 PRN; Protocol PRN Reason: Hypoglycemia Docusate Sodium (Docusate Sodium 100 Mg Capsule) 100 mg PO BID [facility] Last Admin: 09/04/20 08:10 Dose: 100 mg Documented by: Finasteride (Finasteride 5 Mg Tablet) 5 mg PO DAILY [facility] Last Admin: 09/04/20 08:10 Dose: 5 mg Documented by: Furosemide (Furosemide 40 Mg/4 Ml Vial) 40 mg IV Q8 [facility] Last Admin: 09/04/20 05:56 Dose: 40 mg Documented by: Glucagon (Glucagon 1 Mg/Ml Syringe) 1 mg IM .X1 PRN PRN Reason: Hypoglycemia Sodium Chloride () 250 mls @ 15 mls/hr IV .[id number] PRN PRN Reason: Saline Flush Last Infusion: 09/04/20 04:33 Dose: 0 mls/hr Documented by: Sodium Chloride () 250 mls @ 15 mls/hr IV .[id number] PRN PRN Reason: Additional IVPB Infusion Piperacillin Sod/Tazobactam (Sod 3.375 gm/ Sodium Chloride) 50 mls @ 12.5 mls/hr IV Q8 [facility] Last Infusion: 09/04/20 12:27 Dose: Infused Documented by: Insulin Glargine (Insulin Glargine 100 Units/Ml Pen) 14 units SC QHS [facility] Last Admin: 09/03/20 21:53 Dose: 14 units Documented by: Insulin Human Lispro (Insulin Lispro 100 Unit/Ml Insuln.Pen) 0 unit SC ACHS [facility]; Protocol Last Admin: 09/04/20 11:31 Dose: Not Given Documented by: Levothyroxine Sodium (Levothyroxine 50 Mcg Tablet) 50 mcg PO DAILY@0600 [facility] Last Admin: 09/04/20 05:56 Dose: 50 mcg Documented by: Magnesium Hydroxide (Magnesium Hydroxide 30 Ml Udc) 30 ml PO DAILY PRN PRN PRN Reason: CONSTIPATION Metoprolol Succinate (Metoprolol(Xl)Succ 50 Mg Tablet) 50 mg PO DAILY [facility] Last Admin: 09/04/20 08:11 Dose: 50 mg Documented by: Nitroglycerin (Nitroglycerin (Inpatient Use) 0.4 Mg Tab.Subl) 0.4 mg SUBLINGUAL Q5M PRN PRN Reason: Angina Nutritional Formula (Lactose Free) (Glucerna Shake 120 Ml Liquid) 120 ml PO 4X/DAY [facility] Last Admin: 09/04/20 11:31 Dose: Not Given Documented by: Ondansetron HCl (Ondansetron 4 Mg/2 Ml Vial) 4 mg IV Q6H PRN PRN PRN Reason: Nausea Last Admin: 09/01/20 19:52 Dose: 4 mg Documented by: Oxycodone HCl (Oxycodone 5 Mg Tablet) 5 mg PO Q4H PRN PRN PRN Reason: Pain Score 1-10 Last Admin: 09/01/20 22:17 Dose: 5 mg Documented by: Pantoprazole Sodium (Pantoprazole Sodium 20 Mg Tablet) 20 mg PO BID [facility] Last Admin: 09/04/20 08:11 Dose: 20 mg Documented by: Senna (Senna Tablet) 1 tablet PO DAILY [facility] Last Admin: 09/04/20 08:12 Dose: 1 tablet Documented by: Sodium Chloride (0.9% Saline Lock 10 Ml Syringe) 10 - 40 ml IV UD PRN PRN Reason: SALINE FLUSH Last Admin: 09/03/20 10:05 Dose: 10 ml Documented by: Tamsulosin HCl (Tamsulosin Hcl 0.4 Mg Capsule) 0.8 mg PO DAILY@0830 [facility] Last Admin: 09/04/20 08:11 Dose: 0.8 mg Documented by: Medical Necessity - Tobacco Use Smoking Status: Former smoker Tobacco Use: Non-smoker Assessment/Plan All Active Problems Hyperkalemia (Acute) GI bleed (Resolved) Supratherapeutic INR (Acute) Gross hematuria (Acute) Anticoagulation goal of INR 2.5 to 3.5 (Acute) Facial droop (Resolved) #1 chronic hypoxic respiratory failure secondary to chronic obstructive pulmonary disease and chronic systolic congestive heart failure-currently patient is on nasal cannula oxygen at 2.5 to 3 L/min, this is improved over yesterday's oxygen requirement #2 Acute on chronic systolic congestive heart failure-patient's echocardiogram revealed a 30% EF, patient will remain on IV Lasix #3 chronic kidney disease stage IV-patient's creatinine is improved today as compared with yesterday's lab, nephrology is participating in his care #4 atherosclerotic heart disease with recent BABATUNDE in 03/2020-patient will need to remain on Plavix and aspirin #5 ischemic cardiomyopathy/history of dilated cardiomyopathy-patient's repeat echocardiogram showed an EF of 30% with mild pulmonary hypertension. #6 chronic obstructive pulmonary disease #7 Schizoaffective disorder-patient remains off of any psychiatric medications at this time and appears stable #8 chronic atrial fibrillation- rate appears controlled at this time #9 mechanical aortic heart valve-patient will remain off Coumadin due to his severe hematuria, he was given fresh frozen plasma today in anticipation of his surgery, we will need to wait 48 hours to restart anticoagulation since the patient had a transurethral prostate procedure #10 type 2 diabetes-patient's blood sugars will be monitored, sliding scale insulin was ordered #11 chronic anemia-possibly secondary to chronic kidney disease-I gave the patient 1 unit of blood today, I think that he could use an additional unit which I will order for this evening. Patient will get repeat labs in the morning #12 GERD #13 hyperlipidemia #14 hypothyroidism #15 hyperkalemia-resolved #16 acute on chronic anemia secondary to acute hematuria-patient CBC will be rechecked tomorrow Prognosis remains guarded at this time due to the fact the patient has multiple medical problems Inpatient E&M: 87509 Subs Hosp L2
--- NOTE | 2020-09-04 19:06 | NURSING ---
unable to accurately calculate I&Os due to no documentation by PACU.
[2020-09-04 21:20] LABS: Bedside Glucose 287 mg/dL (70-110)
[2020-09-04] MEDS: Insulin Lispro 100 UNIT/ML INSULN.PEN SC (21:23)
[2020-09-04] MEDS: Glucerna Shake 120 ML LIQUID PO (21:54)
[2020-09-04] MEDS: Atorvastatin Calcium 80 MG Tablet PO (21:55)
[2020-09-05] VITALS (21 sets, daily range): BP systolic 104–134; BP diastolic 56–89; PULSE 77–987; RESP 18–28; TEMP 36.3–36.9; O2SAT 90–97
[2020-09-05] MEDS: Ipratropium/Albuterol Sulfate 3 ML AMPUL.NEB INHALATION ×4 (01:54→18:54)
[2020-09-05] MEDS: Furosemide 40 MG/4 ML Vial IV ×4 (02:12→21:05)
[2020-09-05] MEDS: Levothyroxine 50 MCG Tablet PO (05:36)
[2020-09-05] MEDS: Insulin Lispro 100 UNIT/ML INSULN.PEN SC ×4 (06:57→21:05)
[2020-09-05 07:05] LABS: Bedside Glucose 163 mg/dL (70-110)
[2020-09-05] MEDS: Budesonide Respules 0.5 MG/2 ML AMPUL.NEB. INHALATION ×2 (07:06→18:54)
[2020-09-05 07:28] LABS: Absolute Lymphocyte Count 0.88 X10^3/uL (0.83-4.51); Absolute Neutrophil Count 6.9 X10^3/uL (2.0-7.7); Basophil# 0.05 X10^3/uL; Basophil% 0.5 % (0-1); Eosinophil# 0.12 X10^3/uL; Eosinophils% 1.3 % (0-5); Hematocrit 30.6 % (40-54); Hemoglobin 9.1 g/dL (13.0-16.5); Lymphocyte # 0.88 X10^3/ul (4.0); Lymphocyte % 9.6 % (19-41); Mean Corp Hgb Conc 29.7 g/dL (32-36); Mean Corpuscular Hgb 27.6 pg (27.0-32.0); Mean Corpuscular Volume 92.7 fL (80-94); Mean Platelet Vol. 10.9 fl (6.2-12.0); Monocyte# 1.19 X10^3/uL; Monocyte% 12.9 % (0-10); NRBC Flagged by Analyzer 0 % (0-5); Neutrophil # 6.94 X10^3/uL (2.7-7.7); Neutrophil % 75.4 % (47-70); Platelet Count 201 K/mm3 (150-450); RBC Distribution Width CV 16.4 % (11.6-14.6); RBC Distribution Width SD 54.8 fl (35.1-43.9); White Blood Count 9.2 K/mm3 (4.4-11.0)
[2020-09-05 07:39] LABS: Anion Gap 1 (5-15); BUN 56 mg/dL (7-18); BUN/Creat Ratio 22.4 RATIO (10-20); Calcium,Total 8.8 mg/dL (8.5-10.1); Chloride 97 mmol/L (98-107); EST Glomerular Filtration Rate 27 mL/min (>60); Est Glom Filt Rate - Afr Amer 32 mL/min (>60); Estimated Creatinine Clearance 23.18 ml/min; Glucose 158 mg/dL (74-106); Potassium 3.8 mmol/L (3.5-5.1); Sodium Level 136 mmol/L (136-145)
[2020-09-05 07:53] LABS: International Normalized Ratio 1.4; Prothrombin Time (Protime)PT. 16.9 SECONDS (11.7-14.9)
[2020-09-05] MEDS: Aspirin 81 MG TAB.CHEW PO (08:38)
[2020-09-05] MEDS: Tamsulosin HCl 0.4 MG Capsule 0.8 MG PO (08:39)
[2020-09-05] MEDS: Allopurinol 100 MG Tablet PO (08:39)
[2020-09-05] MEDS: Amiodarone 200 MG Tablet PO (08:40)
[2020-09-05] MEDS: Docusate Sodium 100 MG Capsule PO ×2 (08:40→21:06)
[2020-09-05] MEDS: Glucerna Shake 120 ML LIQUID PO ×3 (08:40→21:05)
[2020-09-05] MEDS: Metoprolol(XL)Succ 50 MG Tablet PO (08:41)
[2020-09-05] MEDS: Finasteride 5 MG Tablet PO (08:41)
[2020-09-05] MEDS: Clopidogrel Bisulfate 75 MG Tablet PO (08:41)
[2020-09-05] MEDS: Pantoprazole Sodium 20 MG Tablet PO ×2 (08:41→21:06)
[2020-09-05] MEDS: Senna Tablet 1 TABLET PO (08:41)
[2020-09-05] MEDS: Acetaminophen 325 MG Tablet PO (08:44)
--- NOTE | 2020-09-05 09:03 | PCM.PROGNOTE ---
Patient Problems: Active and Suspected Problems Supratherapeutic INR (Acute) Gross hematuria (Acute) Subjective: Postop day #1 status post TURP and removal of clot retention. - Physical Exam Vitals/I&O's: Vital Signs Temp Pulse Resp BP Pulse Ox 98.2 F 100 24 H 119/83 H 93 09/05/20 08:11 09/05/20 08:41 09/05/20 08:11 09/05/20 08:11 09/05/20 08:11 Oxygen Flow Rate (L/min) 5 Oxygen Delivery Method Nasal Cannula Weight: 89.04 kg Body Mass Index (BMI) 29.8 Finger Stick Blood Glucose 188 Intake and Output for Last 24 Hours 09/03/20 09/04/20 09/05/20 23:59 23:59 23:59 Intake Total 1538.00 / 1538.00 987.25 / 1227.25 390 / 390 Output Total 97893 / 16195 7500 / 7500 3950 / 3950 Balance -13855.00 / -37595.00 -6512.75 / -6272.75 -3560 / -3560 General: Alert, Oriented x3, Cooperative HEENT: Atraumatic, PERRLA, EOMI, Normocephalic Neck: Supple, No JVD, Negative Carotid Bruits Lungs: Clear to auscultation, Normal air movement Cardiovascular: Regular rate, No murmurs Abdomen: Bowel Sounds Present, Soft, Non Tender Extremities: No edema, Capillary Refill Less than 3 Seconds Skin: No rashes, No breakdown Musculoskeletal: No Tenderness to Palpation of Joints or Extremities Neurological: Cranial nerves II-XII grossly intact Psych/Mental Status: Normal Affect, Appropriate Microbiology Past 72 Hours 09/03/20 16:00 Mucosa - Nasopharyngeal SARS-CoV-2 Antigen (Rapid) - Final Laboratory Results 09/01/20 06:45: Crossmatch See Detail 09/04/20 08:05: Blood Type B POSITIVE, Antibody Screen NEGATIVE 09/04/20 08:05: Blood Type Cancelled, A1 Antigen Typing Cancelled, Rho(D) Type Cancelled, Antibody Screen Cancelled, Crossmatch See Detail 09/04/20 08:05: Blood Type Cancelled, A1 Antigen Typing Cancelled, Rho(D) Type Cancelled, Antibody Screen Cancelled, Crossmatch See Detail 09/04/20 11:05: POC Glucose 158 H 09/04/20 15:05: PT 19.8 H, INR 1.7 09/04/20 17:10: POC Glucose 188 H 09/04/20 21:17: POC Glucose 287 H 09/05/20 06:47: WBC 9.2, RBC 3.30 L, Hgb 9.1 L, Hct 30.6 L, MCV 92.7, MCH 27.6, MCHC 29.7 L, RDW Std Deviation 54.8 H, RDW Coeff of Yessi 16.4 H, Plt Count 201, MPV 10.9, Immature Gran % (Auto) 0.300, Neut % (Auto) 75.4 H, Lymph % (Auto) 9.6 L, Leslie % (Auto) 12.9 H, Eos % (Auto) 1.3, Baso % (Auto) 0.5, Absolute Neuts (auto) 6.9, Absolute Lymphs (auto) 0.88, Nucleated RBC % 0 09/05/20 06:47: Sodium 136, Potassium 3.8, Chloride 97 L, Carbon Dioxide 38.0 H, Anion Gap 1 L, BUN 56 H, Creatinine 2.50 H, Estim Creat Clear Calc 23.18, Est GFR (MDRD) Af Amer 32 L, Est GFR (MDRD) Non-Af 27 L, BUN/Creatinine Ratio 22.4 H, Glucose 158 H, Calcium 8.8 09/05/20 06:56: POC Glucose 163 H 09/05/20 07:35: PT 16.9 H, INR 1.4 Current Medications Acetaminophen (Acetaminophen 325 Mg Tablet) 325 mg PO Q4H PRN PRN PRN Reason: Pain Score 1-10 Last Admin: 09/05/20 08:44 Dose: 325 mg Documented by: Al Hydroxide/Mg Hydroxide (Mag Hydrox/Al Hydrox/Simeth 30 Ml Udc) 30 ml PO Q4H PRN PRN PRN Reason: gi distress Albuterol Sulfate (Albuterol 2.5 Mg/3 Ml Vial.Neb.) 2.5 mg INHALATION Q4H PRN PRN Reason: Wheezing Last Admin: 09/04/20 17:31 Dose: 2.5 mg Documented by: Albuterol/Ipratropium (Ipratropium/Albuterol Sulfate 3 Ml Ampul.Neb) 3 ml INHALATION Q6H.RT [facility] Last Admin: 09/05/20 07:07 Dose: 3 ml Documented by: Allopurinol (Allopurinol 100 Mg Tablet) 100 mg PO DAILYCM [facility] Last Admin: 09/05/20 08:39 Dose: 100 mg Documented by: Amiodarone HCl (Amiodarone 200 Mg Tablet) 200 mg PO DAILY [facility] Last Admin: 09/05/20 08:40 Dose: 200 mg Documented by: Aspirin (Aspirin 81 Mg Tab.Chew) 81 mg PO DAILY@0800 [facility] Last Admin: 09/05/20 08:38 Dose: 81 mg Documented by: Atorvastatin Calcium (Atorvastatin Calcium 80 Mg Tablet) 80 mg PO QHS [facility] Last Admin: 09/04/20 21:55 Dose: 80 mg Documented by: Budesonide (Budesonide Respules 0.5 Mg/2 Ml Ampul.Neb.) 0.5 mg INHALATION BID.RT [facility] Last Admin: 09/05/20 07:06 Dose: 0.5 mg Documented by: Clopidogrel Bisulfate (Clopidogrel Bisulfate 75 Mg Tablet) 75 mg PO DAILY [facility] Last Admin: 09/05/20 08:41 Dose: 75 mg Documented by: Dextrose (Dextrose 50%-Water 25 Gm/50 Ml Disp.Syrin) 0 gm IV X1 PRN; Protocol PRN Reason: Hypoglycemia Docusate Sodium (Docusate Sodium 100 Mg Capsule) 100 mg PO BID [facility] Last Admin: 09/05/20 08:40 Dose: 100 mg Documented by: Finasteride (Finasteride 5 Mg Tablet) 5 mg PO DAILY [facility] Last Admin: 09/05/20 08:41 Dose: 5 mg Documented by: Furosemide (Furosemide 40 Mg/4 Ml Vial) 40 mg IV Q8 [facility] Last Admin: 09/05/20 05:37 Dose: 40 mg Documented by: Glucagon (Glucagon 1 Mg/Ml Syringe) 1 mg IM .X1 PRN PRN Reason: Hypoglycemia Sodium Chloride () 250 mls @ 15 mls/hr IV .[id number] PRN PRN Reason: Saline Flush Last Infusion: 09/04/20 04:33 Dose: 0 mls/hr Documented by: Sodium Chloride () 250 mls @ 15 mls/hr IV .[id number] PRN PRN Reason: Additional IVPB Infusion Piperacillin Sod/Tazobactam (Sod 3.375 gm/ Sodium Chloride) 50 mls @ 12.5 mls/hr IV Q8 [facility] Last Admin: 09/05/20 05:36 Dose: 12.5 mls/hr Documented by: Insulin Glargine (Insulin Glargine 100 Units/Ml Pen) 14 units SC QHS [facility] Last Admin: 09/04/20 21:26 Dose: 14 units Documented by: Insulin Human Lispro (Insulin Lispro 100 Unit/Ml Insuln.Pen) 0 unit SC ACHS [facility]; Protocol Last Admin: 09/05/20 06:57 Dose: 1 units Documented by: Levothyroxine Sodium (Levothyroxine 50 Mcg Tablet) 50 mcg PO DAILY@0600 [facility] Last Admin: 09/05/20 05:36 Dose: 50 mcg Documented by: Magnesium Hydroxide (Magnesium Hydroxide 30 Ml Udc) 30 ml PO DAILY PRN PRN PRN Reason: CONSTIPATION Metoprolol Succinate (Metoprolol(Xl)Succ 50 Mg Tablet) 50 mg PO DAILY [facility] Last Admin: 09/05/20 08:41 Dose: 50 mg Documented by: Nitroglycerin (Nitroglycerin (Inpatient Use) 0.4 Mg Tab.Subl) 0.4 mg SUBLINGUAL Q5M PRN PRN Reason: Angina Nutritional Formula (Lactose Free) (Glucerna Shake 120 Ml Liquid) 120 ml PO 4X/DAY [facility] Last Admin: 09/05/20 08:40 Dose: 120 ml Documented by: Ondansetron HCl (Ondansetron 4 Mg/2 Ml Vial) 4 mg IV Q6H PRN PRN PRN Reason: Nausea Last Admin: 09/01/20 19:52 Dose: 4 mg Documented by: Oxycodone HCl (Oxycodone 5 Mg Tablet) 5 mg PO Q4H PRN PRN PRN Reason: Pain Score 1-10 Last Admin: 09/01/20 22:17 Dose: 5 mg Documented by: Pantoprazole Sodium (Pantoprazole Sodium 20 Mg Tablet) 20 mg PO BID [facility] Last Admin: 09/05/20 08:41 Dose: 20 mg Documented by: Senna (Senna Tablet) 1 tablet PO DAILY [facility] Last Admin: 09/05/20 08:41 Dose: 1 tablet Documented by: Sodium Chloride (0.9% Saline Lock 10 Ml Syringe) 10 - 40 ml IV UD PRN PRN Reason: SALINE FLUSH Last Admin: 09/03/20 10:05 Dose: 10 ml Documented by: Tamsulosin HCl (Tamsulosin Hcl 0.4 Mg Capsule) 0.8 mg PO DAILY@0830 [facility] Last Admin: 09/05/20 08:39 Dose: 0.8 mg Documented by: Medical Necessity - Tobacco Use Smoking Status: Former smoker Tobacco Use: Non-smoker Assessment/Plan All Active Problems Hyperkalemia (Acute) GI bleed (Resolved) Supratherapeutic INR (Acute) Gross hematuria (Acute) Anticoagulation goal of INR 2.5 to 3.5 (Acute) Facial droop (Resolved) Urine is clear this morning with no blood whatsoever. He is clinically stable no pain or discomfort. We will have the nurses remove the catheter for voiding trial.
[2020-09-05 11:41] LABS: Bedside Glucose 182 mg/dL (70-110)
[2020-09-05] MEDS: 0.9% Saline Lock 10 ML Syringe IV (15:05)
[2020-09-05] MEDS: Bisacodyl 10 MG Suppository RC (17:59)
[2020-09-05] MEDS: Lactulose 20 GM/30 ML UDC PO (18:05)
[2020-09-05 18:10] LABS: Bedside Glucose 268 mg/dL (70-110)
[2020-09-05] MEDS: Atorvastatin Calcium 80 MG Tablet PO (21:06)
[2020-09-05 21:21] LABS: Bedside Glucose 220 mg/dL (70-110)
[2020-09-06] VITALS (13 sets, daily range): BP systolic 96–119; BP diastolic 53–91; PULSE 58–94; RESP 16–24; TEMP 36.2–36.8; O2SAT 93–98
[2020-09-06] MEDS: 0.9% Saline Lock 10 ML Syringe IV ×2 (05:04→14:59)
[2020-09-06] MEDS: Levothyroxine 50 MCG Tablet PO (05:05)
[2020-09-06] MEDS: Furosemide 40 MG/4 ML Vial IV ×3 (05:05→21:55)
[2020-09-06] MEDS: Albuterol 2.5 MG/3 ML VIAL.NEB. INHALATION (05:24)
[2020-09-06] MEDS: Insulin Lispro 100 UNIT/ML INSULN.PEN SC ×4 (06:37→21:56)
[2020-09-06 06:41] LABS: Bedside Glucose 170 mg/dL (70-110)
[2020-09-06] MEDS: Allopurinol 100 MG Tablet PO (09:26)
[2020-09-06] MEDS: Aspirin 81 MG TAB.CHEW PO (09:26)
[2020-09-06] MEDS: Tamsulosin HCl 0.4 MG Capsule 0.8 MG PO (09:26)
[2020-09-06] MEDS: Metoprolol(XL)Succ 50 MG Tablet PO (09:27)
[2020-09-06] MEDS: Pantoprazole Sodium 20 MG Tablet PO ×2 (09:27→21:55)
[2020-09-06] MEDS: Amiodarone 200 MG Tablet PO (09:27)
[2020-09-06] MEDS: Finasteride 5 MG Tablet PO (09:27)
[2020-09-06] MEDS: Docusate Sodium 100 MG Capsule PO ×2 (09:27→21:55)
[2020-09-06] MEDS: Senna Tablet 1 TABLET PO (09:27)
--- NOTE | 2020-09-06 09:57 | RAD_ITS ---
STUDY: X-RAY CHEST REASON FOR EXAM: Male, 80 years old. HYPOXIA, WHEEZING TECHNIQUE: AP upright portable view. COMPARISON: 09/02/2020. FINDINGS: Pulmonary hypoinflation. Persistent hazy infiltrates in both lungs. There is no demonstrated pleural abnormality. Cardiomegaly is unchanged. Normal mediastinum and roberth. Normal visualized pulmonary arteries. Normal visualized aortic arch and descending thoracic aorta. Normal visualized thoracic spine. Normal visualized ribs, clavicles, and shoulders. There is no demonstrated abnormality of the visualized soft tissue structures of the upper abdomen. RAD/Chest 1 View (Portable) IMPRESSION: No interval change. Electronically Signed: Julián Mojica MD at 11:58 EST , Service support ,
[2020-09-06] MEDS: MethylPREDNISolone 125 MG/2 ML Vial 60 MG IV (10:51)
[2020-09-06 11:20] LABS: International Normalized Ratio 1.4; Prothrombin Time (Protime)PT. 16.2 SECONDS (11.7-14.9)
[2020-09-06 11:21] LABS: Anion Gap 8 (5-15); BUN 63 mg/dL (7-18); Calcium,Total 8.7 mg/dL (8.5-10.1); Chloride 92 mmol/L (98-107); Creatinine, Serum 2.74 mg/dL (0.70-1.30); EST Glomerular Filtration Rate 24 mL/min (>60); Est Glom Filt Rate - Afr Amer 29 mL/min (>60); Estimated Creatinine Clearance 21.15 ml/min; Glucose 244 mg/dL (74-106); Potassium 3.7 mmol/L (3.5-5.1); Sodium Level 133 mmol/L (136-145)
--- NOTE | 2020-09-06 13:02 | PCM.PROGNOTE ---
Patient Problems: Active and Suspected Problems Supratherapeutic INR (Acute) Gross hematuria (Acute) Subjective: 80-year-old male status post evacuation of blood clots and cauterization of bleeding from the prostate and TURP. He does have a cardiac history but he would be extremely high risk for recurrent bleeding to be started on blood thinners again I stressed the importance of not starting blood thinners to the medical service he can be on baby aspirin at this point he would be at very high risk for bleeding if we start him on blood thinners. - Physical Exam Vitals/I&O's: Vital Signs Temp Pulse Resp BP Pulse Ox 97.5 F L 72 21 H 119/91 H 97 09/06/20 09:03 09/06/20 09:27 09/06/20 09:03 09/06/20 09:27 09/06/20 09:03 Oxygen Flow Rate (L/min) 4 Oxygen Delivery Method Nasal Cannula Weight: 89.04 kg Body Mass Index (BMI) 29.8 Finger Stick Blood Glucose 188 Intake and Output for Last 24 Hours 09/04/20 09/05/20 09/06/20 23:59 23:59 23:59 Intake Total 987.25 / 1227.25 1650 / 1800 745 / 745 Output Total 7500 / 7500 4475 / 4475 Balance -6512.75 / -6272.75 -2825 / -2675 745 / 745 General: Alert, Oriented x3, Cooperative HEENT: Atraumatic, PERRLA, EOMI, Normocephalic Neck: Supple, No JVD, Negative Carotid Bruits Lungs: Clear to auscultation, Normal air movement Cardiovascular: Regular rate, No murmurs Abdomen: Bowel Sounds Present, Soft, Non Tender Extremities: No edema, Capillary Refill Less than 3 Seconds Skin: No rashes, No breakdown Musculoskeletal: No Tenderness to Palpation of Joints or Extremities Neurological: Cranial nerves II-XII grossly intact Psych/Mental Status: Normal Affect, Appropriate Microbiology Past 72 Hours 09/03/20 16:00 Mucosa - Nasopharyngeal SARS-CoV-2 Antigen (Rapid) - Final Laboratory Results 09/05/20 17:56: POC Glucose 268 H 09/05/20 21:04: POC Glucose 220 H 09/06/20 06:33: POC Glucose 170 H 09/06/20 10:50: PT 16.2 H, INR 1.4 09/06/20 10:50: Sodium 133 L, Potassium 3.7, Chloride 92 L, Carbon Dioxide 33.0 H, Anion Gap 8, BUN 63 H, Creatinine 2.74 H, Estim Creat Clear Calc 21.15, Est GFR (MDRD) Af Amer 29 L, Est GFR (MDRD) Non-Af 24 L, BUN/Creatinine Ratio 23.0 H, Glucose 244 H, Calcium 8.7 09/06/20 10:50: APTT Pending Current Medications Acetaminophen (Acetaminophen 325 Mg Tablet) 325 mg PO Q4H PRN PRN PRN Reason: Pain Score 1-10 Last Admin: 09/05/20 08:44 Dose: 325 mg Documented by: Al Hydroxide/Mg Hydroxide (Mag Hydrox/Al Hydrox/Simeth 30 Ml Udc) 30 ml PO Q4H PRN PRN PRN Reason: gi distress Albuterol Sulfate (Albuterol 2.5 Mg/3 Ml Vial.Neb.) 2.5 mg INHALATION Q4H PRN PRN Reason: Wheezing Last Admin: 09/06/20 05:24 Dose: 2.5 mg Documented by: Albuterol/Ipratropium (Ipratropium/Albuterol Sulfate 3 Ml Ampul.Neb) 3 ml INHALATION Q6H.RT [facility] Last Admin: 09/05/20 18:54 Dose: 3 ml Documented by: Allopurinol (Allopurinol 100 Mg Tablet) 100 mg PO DAILYCM [facility] Last Admin: 09/06/20 09:26 Dose: 100 mg Documented by: Amiodarone HCl (Amiodarone 200 Mg Tablet) 200 mg PO DAILY [facility] Last Admin: 09/06/20 09:27 Dose: 200 mg Documented by: Aspirin (Aspirin 81 Mg Tab.Chew) 81 mg PO DAILY@0800 [facility] Last Admin: 09/06/20 09:26 Dose: 81 mg Documented by: Atorvastatin Calcium (Atorvastatin Calcium 80 Mg Tablet) 80 mg PO QHS [facility] Last Admin: 09/05/20 21:06 Dose: 80 mg Documented by: Budesonide (Budesonide Respules 0.5 Mg/2 Ml Ampul.Neb.) 0.5 mg INHALATION BID.RT [facility] Last Admin: 09/05/20 18:54 Dose: 0.5 mg Documented by: Dextrose (Dextrose 50%-Water 25 Gm/50 Ml Disp.Syrin) 0 gm IV X1 PRN; Protocol PRN Reason: Hypoglycemia Docusate Sodium (Docusate Sodium 100 Mg Capsule) 100 mg PO BID [facility] Last Admin: 09/06/20 09:27 Dose: 100 mg Documented by: Finasteride (Finasteride 5 Mg Tablet) 5 mg PO DAILY [facility] Last Admin: 09/06/20 09:27 Dose: 5 mg Documented by: Furosemide (Furosemide 40 Mg/4 Ml Vial) 40 mg IV Q8 [facility] Last Admin: 09/06/20 05:05 Dose: 40 mg Documented by: Glucagon (Glucagon 1 Mg/Ml Syringe) 1 mg IM .X1 PRN PRN Reason: Hypoglycemia Heparin Sodium (Porcine) (Heparin Injection (Vial) 5,000 Unit/Ml Vial) 0 unit IV UD PRN; Protocol PRN Reason: dose adjustment Sodium Chloride () 250 mls @ 15 mls/hr IV .[id number] PRN PRN Reason: Saline Flush Last Infusion: 09/04/20 04:33 Dose: 0 mls/hr Documented by: Sodium Chloride () 250 mls @ 15 mls/hr IV .[id number] PRN PRN Reason: Additional IVPB Infusion Insulin Glargine (Insulin Glargine 100 Units/Ml Pen) 14 units SC QHS [facility] Last Admin: 09/05/20 21:06 Dose: 14 units Documented by: Insulin Human Lispro (Insulin Lispro 100 Unit/Ml Insuln.Pen) 0 unit SC ACHS [facility]; Protocol Last Admin: 09/06/20 10:55 Dose: 2 units Documented by: Levothyroxine Sodium (Levothyroxine 50 Mcg Tablet) 50 mcg PO DAILY@0600 [facility] Last Admin: 09/06/20 05:05 Dose: 50 mcg Documented by: Magnesium Hydroxide (Magnesium Hydroxide 30 Ml Udc) 30 ml PO DAILY PRN PRN PRN Reason: CONSTIPATION Metoprolol Succinate (Metoprolol(Xl)Succ 50 Mg Tablet) 50 mg PO DAILY [facility] Last Admin: 09/06/20 09:27 Dose: 50 mg Documented by: Nitroglycerin (Nitroglycerin (Inpatient Use) 0.4 Mg Tab.Subl) 0.4 mg SUBLINGUAL Q5M PRN PRN Reason: Angina Nutritional Formula (Lactose Free) (Glucerna Shake 120 Ml Liquid) 120 ml PO 4X/DAY [facility] Last Admin: 09/06/20 09:27 Dose: Not Given Documented by: Ondansetron HCl (Ondansetron 4 Mg/2 Ml Vial) 4 mg IV Q6H PRN PRN PRN Reason: Nausea Last Admin: 09/01/20 19:52 Dose: 4 mg Documented by: Oxycodone HCl (Oxycodone 5 Mg Tablet) 5 mg PO Q4H PRN PRN PRN Reason: Pain Score 1-10 Last Admin: 09/01/20 22:17 Dose: 5 mg Documented by: Pantoprazole Sodium (Pantoprazole Sodium 20 Mg Tablet) 20 mg PO BID [facility] Last Admin: 09/06/20 09:27 Dose: 20 mg Documented by: Senna (Senna Tablet) 1 tablet PO DAILY [facility] Last Admin: 09/06/20 09:27 Dose: 1 tablet Documented by: Sodium Chloride (0.9% Saline Lock 10 Ml Syringe) 10 - 40 ml IV UD PRN PRN Reason: SALINE FLUSH Last Admin: 09/06/20 05:04 Dose: 10 ml Documented by: Tamsulosin HCl (Tamsulosin Hcl 0.4 Mg Capsule) 0.8 mg PO DAILY@0830 [facility] Last Admin: 09/06/20 09:26 Dose: 0.8 mg Documented by: Medical Necessity - Tobacco Use Smoking Status: Former smoker Tobacco Use: Non-smoker Assessment/Plan All Active Problems Hyperkalemia (Acute) GI bleed (Resolved) Supratherapeutic INR (Acute) Gross hematuria (Acute) Anticoagulation goal of INR 2.5 to 3.5 (Acute) Facial droop (Resolved) 80-year-old male with history of bleeding from the prostate he required blood transfusions he was in the hospital several days with irrigation and clots. My recommendation is not to start blood thinners. My recommendation is continue a baby aspirin. We need to hold Coumadin hold Plavix and hold heparin. I will talk to the primary service and let them know my concerns that if we start him on blood thinners the patient will very likely bleed and have to go back to surgery and get more blood transfusions and need to hold blood thinners for the time being. He probably can be discharged home tomorrow with baby aspirin can follow-up with his PCP in about a week to consider restarting blood thinners.
[2020-09-06] MEDS: Ipratropium/Albuterol Sulfate 3 ML AMPUL.NEB INHALATION ×2 (13:05→19:34)
[2020-09-06 14:41] LABS: Bedside Glucose 234 mg/dL (70-110)
[2020-09-06] MEDS: Glucerna Shake 120 ML LIQUID PO ×3 (14:58→22:04)
--- NOTE | 2020-09-06 16:39 | PN_ITS ---
Patient Problems: Active and Suspected Problems Supratherapeutic INR (Acute) Gross hematuria (Acute) Subjective: The date of this entry should be 09/05/2020: Patient was seen and examined today, his Byers catheter was removed, I talked briefly with urology yesterday about when to resume the patient's anticoagulation, urology seem to indicate to me that we could resume his anticoagulation on 09/06/2020 if there was no evidence of bleeding. Patient's INR today was 1.4, hemoglobin was 9.1. Patient's creatinine today was 2.5. Patient's oxygen flow rate today is anywhere from 3 to 5 L, he does not appear to be in any distress. Objective: General: Alert, Cooperative, No apparent distress, Well developed, Well nourished HEENT: Atraumatic, PERRLA, EOMI, Normocephalic Oral: Moist Mucosa Neck: Supple, No JVD, Trachea Midline, Thyroid Normal Size and Texture Lungs: Clear to auscultation, Normal air movement, No rhonchi, No wheeze, No rales Cardiovascular: Normal S1, Normal S2, PMI Normal, Irregular Rate, No rub noted, No Gallop, - - Mechanical click noted at the apex Abdomen: Bowel Sounds Present, Soft, Non Tender, Non-Distended Extremities: No clubbing, No cyanosis, No edema, Capillary Refill Less than 3 Seconds Skin: No rashes, No breakdown Musculoskeletal: No Tenderness to Palpation of Joints or Extremities Neurological: Cranial nerves II-XII grossly intact, Neuro grossly intact, Sensory exam intact to light touch and pain, Coordination normal Psych/Mental Status: - - Patient is alert and answers simple questions appropriately - Physical Exam Vitals/I&O's: Vital Signs Temp Pulse Resp BP Pulse Ox 98.2 F 72 18 96/58 L 96 09/06/20 14:55 09/06/20 14:55 09/06/20 14:55 09/06/20 14:55 09/06/20 14:55 Oxygen Flow Rate (L/min) 3 Oxygen Delivery Method Nasal Cannula Weight: 89.04 kg Body Mass Index (BMI) 29.8 Finger Stick Blood Glucose 188 Intake and Output for Last 24 Hours 09/04/20 09/05/20 09/06/20 23:59 23:59 23:59 Intake Total 987.25 / 1227.25 1650 / 1800 745 / 745 Output Total 7500 / 7500 4475 / 4475 Balance -6512.75 / -6272.75 -2825 / -2675 745 / 745 Microbiology Past 72 Hours 09/03/20 16:00 Mucosa - Nasopharyngeal SARS-CoV-2 Antigen (Rapid) - Final Laboratory Results 09/05/20 17:56: POC Glucose 268 H 09/05/20 21:04: POC Glucose 220 H 09/06/20 06:33: POC Glucose 170 H 09/06/20 10:50: PT 16.2 H, INR 1.4 09/06/20 10:50: Sodium 133 L, Potassium 3.7, Chloride 92 L, Carbon Dioxide 33.0 H, Anion Gap 8, BUN 63 H, Creatinine 2.74 H, Estim Creat Clear Calc 21.15, Est GFR (MDRD) Af Amer 29 L, Est GFR (MDRD) Non-Af 24 L, BUN/Creatinine Ratio 23.0 H , Glucose 244 H, Calcium 8.7 09/06/20 10:50: APTT 28.0 09/06/20 10:54: POC Glucose 234 H Current Medications Acetaminophen (Acetaminophen 325 Mg Tablet) 325 mg PO Q4H PRN PRN PRN Reason: Pain Score 1-10 Last Admin: 09/05/20 08:44 Dose: 325 mg Documented by: Al Hydroxide/Mg Hydroxide (Mag Hydrox/Al Hydrox/Simeth 30 Ml Udc) 30 ml PO Q4H PRN PRN PRN Reason: gi distress Albuterol Sulfate (Albuterol 2.5 Mg/3 Ml Vial.Neb.) 2.5 mg INHALATION Q4H PRN PRN Reason: Wheezing Last Admin: 09/06/20 05:24 Dose: 2.5 mg Documented by: Albuterol/Ipratropium (Ipratropium/Albuterol Sulfate 3 Ml Ampul.Neb) 3 ml INHALATION Q6H.RT EDD Last Admin: 09/06/20 13:05 Dose: 3 ml Documented by: Allopurinol (Allopurinol 100 Mg Tablet) 100 mg PO DAILYCM [facility] Last Admin: 09/06/20 09:26 Dose: 100 mg Documented by: Amiodarone HCl (Amiodarone 200 Mg Tablet) 200 mg PO DAILY [facility] Last Admin: 09/06/20 09:27 Dose: 200 mg Documented by: Aspirin (Aspirin 81 Mg Tab.Chew) 81 mg PO DAILY@0800 [facility] Last Admin: 09/06/20 09:26 Dose: 81 mg Documented by: Atorvastatin Calcium (Atorvastatin Calcium 80 Mg Tablet) 80 mg PO QHS [facility] Last Admin: 09/05/20 21:06 Dose: 80 mg Documented by: Budesonide (Budesonide Respules 0.5 Mg/2 Ml Ampul.Neb.) 0.5 mg INHALATION BID.RT [facility] Last Admin: 09/05/20 18:54 Dose: 0.5 mg Documented by: Dextrose (Dextrose 50%-Water 25 Gm/50 Ml Disp.Syrin) 0 gm IV X1 PRN; Protocol PRN Reason: Hypoglycemia Docusate Sodium (Docusate Sodium 100 Mg Capsule) 100 mg PO BID [facility] Last Admin: 09/06/20 09:27 Dose: 100 mg Documented by: Finasteride (Finasteride 5 Mg Tablet) 5 mg PO DAILY [facility] Last Admin: 09/06/20 09:27 Dose: 5 mg Documented by: Furosemide (Furosemide 40 Mg/4 Ml Vial) 40 mg IV Q8 [facility] Last Admin: 09/06/20 14:58 Dose: 40 mg Documented by: Glucagon (Glucagon 1 Mg/Ml Syringe) 1 mg IM .X1 PRN PRN Reason: Hypoglycemia Sodium Chloride () 250 mls @ 15 mls/hr IV .[id number] PRN PRN Reason: Saline Flush Last Infusion: 09/04/20 04:33 Dose: 0 mls/hr Documented by: Sodium Chloride () 250 mls @ 15 mls/hr IV .[id number] PRN PRN Reason: Additional IVPB Infusion Insulin Glargine (Insulin Glargine 100 Units/Ml Pen) 14 units SC QHS [facility] Last Admin: 09/05/20 21:06 Dose: 14 units Documented by: Insulin Human Lispro (Insulin Lispro 100 Unit/Ml Insuln.Pen) 0 unit SC ACHS [facility]; Protocol Last Admin: 09/06/20 10:55 Dose: 2 units Documented by: Levothyroxine Sodium (Levothyroxine 50 Mcg Tablet) 50 mcg PO DAILY@0600 [facility] Last Admin: 09/06/20 05:05 Dose: 50 mcg Documented by: Magnesium Hydroxide (Magnesium Hydroxide 30 Ml Udc) 30 ml PO DAILY PRN PRN PRN Reason: CONSTIPATION Metoprolol Succinate (Metoprolol(Xl)Succ 50 Mg Tablet) 50 mg PO DAILY [facility] Last Admin: 09/06/20 09:27 Dose: 50 mg Documented by: Nitroglycerin (Nitroglycerin (Inpatient Use) 0.4 Mg Tab.Subl) 0.4 mg SUBLINGUAL Q5M PRN PRN Reason: Angina Nutritional Formula (Lactose Free) (Glucerna Shake 120 Ml Liquid) 120 ml PO 4X/DAY [facility] Last Admin: 09/06/20 14:58 Dose: 120 ml Documented by: Ondansetron HCl (Ondansetron 4 Mg/2 Ml Vial) 4 mg IV Q6H PRN PRN PRN Reason: Nausea Last Admin: 09/01/20 19:52 Dose: 4 mg Documented by: Oxycodone HCl (Oxycodone 5 Mg Tablet) 5 mg PO Q4H PRN PRN PRN Reason: Pain Score 1-10 Last Admin: 09/01/20 22:17 Dose: 5 mg Documented by: Pantoprazole Sodium (Pantoprazole Sodium 20 Mg Tablet) 20 mg PO BID [facility] Last Admin: 09/06/20 09:27 Dose: 20 mg Documented by: Senna (Senna Tablet) 1 tablet PO DAILY [facility] Last Admin: 09/06/20 09:27 Dose: 1 tablet Documented by: Sodium Chloride (0.9% Saline Lock 10 Ml Syringe) 10 - 40 ml IV UD PRN PRN Reason: SALINE FLUSH Last Admin: 09/06/20 14:59 Dose: 10 ml Documented by: Tamsulosin HCl (Tamsulosin Hcl 0.4 Mg Capsule) 0.8 mg PO DAILY@0830 [facility] Last Admin: 09/06/20 09:26 Dose: 0.8 mg Documented by: Warfarin Sodium (Warfarin 5 Mg Tablet) 5 mg PO X1 ONE Stop: 09/06/20 17:01 Medical Necessity - Tobacco Use Smoking Status: Former smoker Tobacco Use: Non-smoker Assessment/Plan All Active Problems Hyperkalemia (Acute) GI bleed (Resolved) Supratherapeutic INR (Acute) Gross hematuria (Acute) Anticoagulation goal of INR 2.5 to 3.5 (Acute) Facial droop (Resolved) #1 chronic hypoxic respiratory failure secondary to chronic obstructive pulmonary disease and chronic systolic congestive heart failure-currently patient is on nasal cannula oxygen at anywhere from 3 to 5 L-we will continue to monitor #2 Acute on chronic systolic congestive heart failure-patient's echocardiogram revealed a 30% EF, patient will remain on IV Lasix #3 chronic kidney disease stage IV-patient's creatinine is improved today as compared with yesterday's lab, nephrology is participating in his care #4 atherosclerotic heart disease with recent BABATUNDE in 03/2020-patient will need to remain on Plavix and aspirin #5 ischemic cardiomyopathy/history of dilated cardiomyopathy-patient's repeat echocardiogram showed an EF of 30% with mild pulmonary hypertension. #6 chronic obstructive pulmonary disease #7 Schizoaffective disorder-patient remains off of any psychiatric medications at this time and appears stable #8 chronic atrial fibrillation- rate appears controlled at this time #9 mechanical aortic heart valve-patient will remain off Coumadin due to his severe hematuria, may be able to resume full anticoagulation tomorrow, I will expect to start him back on Coumadin tomorrow as it takes several days for this to have an impact on his anticoagulation. #10 type 2 diabetes-patient's blood sugars will be monitored, sliding scale insulin to be used #11 chronic anemia-possibly secondary to chronic kidney disease #12 GERD #13 hyperlipidemia #14 hypothyroidism #15 hyperkalemia-resolved #16 acute on chronic anemia secondary to acute hematuria Prognosis remains guarded at this time due to the fact the patient has multiple medical problems Inpatient E&M: 34718 Subs Hosp L2
--- NOTE | 2020-09-06 16:44 | PCM.PROGNOTE ---
Patient Problems: Active and Suspected Problems Supratherapeutic INR (Acute) Gross hematuria (Acute) Subjective: She was seen and examined today, I detected a little more wheezing today on expiration, I have given the patient 1 dose of Solu-Medrol, he remains on aerosol treatments including Pulmicort. I had a discussion with urology today, urology is reluctant to allow me to fully anticoagulate the patient today and I talked with urology about the case and felt that it probably would be best to hold anticoagulation 1 more day and reassess the patient tomorrow. I did recommend that the patient started on warfarin however because it will take a while for this to take effect, urology was okay with this. I will talk further with urology tomorrow about resuming anticoagulation. Patient's kidney function was a little bit worse today with a creatinine of 2.74. Performed a chest x-ray on the patient today which showed no interval change from the last chest x-ray on 09/02/2020. - Physical Exam Vitals/I&O's: Vital Signs Temp Pulse Resp BP Pulse Ox 98.2 F 72 18 96/58 L 96 09/06/20 14:55 09/06/20 14:55 09/06/20 14:55 09/06/20 14:55 09/06/20 14:55 Oxygen Flow Rate (L/min) 3 Oxygen Delivery Method Nasal Cannula Weight: 89.04 kg Body Mass Index (BMI) 29.8 Finger Stick Blood Glucose 188 Intake and Output for Last 24 Hours 09/04/20 09/05/20 09/06/20 23:59 23:59 23:59 Intake Total 987.25 / 1227.25 1650 / 1800 745 / 745 Output Total 7500 / 7500 4475 / 4475 Balance -6512.75 / -6272.75 -2825 / -2675 745 / 745 General: Alert, Cooperative, No apparent distress, Well developed HEENT: Atraumatic, PERRLA, EOMI, Normocephalic Oral: Moist Mucosa Neck: Supple, No JVD, Trachea Midline, Thyroid Normal Size and Texture Lungs: No rhonchi, No rales, Wheezes - Expiratory wheezes were noted bilaterally Cardiovascular: PMI Normal, Irregular Rate, No rub noted, No Gallop, - - Apical click is noted Abdomen: Bowel Sounds Present, Soft, Non Tender, Non-Distended Extremities: No clubbing, No cyanosis, No edema, Capillary Refill Less than 3 Seconds Skin: No rashes, No breakdown Musculoskeletal: No Tenderness to Palpation of Joints or Extremities Neurological: Cranial nerves II-XII grossly intact, Neuro grossly intact, Sensory exam intact to light touch and pain Psych/Mental Status: Normal Affect, Appropriate Microbiology Past 72 Hours 09/03/20 16:00 Mucosa - Nasopharyngeal SARS-CoV-2 Antigen (Rapid) - Final Laboratory Results 09/05/20 17:56: POC Glucose 268 H 09/05/20 21:04: POC Glucose 220 H 09/06/20 06:33: POC Glucose 170 H 09/06/20 10:50: PT 16.2 H, INR 1.4 09/06/20 10:50: Sodium 133 L, Potassium 3.7, Chloride 92 L, Carbon Dioxide 33.0 H, Anion Gap 8, BUN 63 H, Creatinine 2.74 H, Estim Creat Clear Calc 21.15, Est GFR (MDRD) Af Amer 29 L, Est GFR (MDRD) Non-Af 24 L, BUN/Creatinine Ratio 23.0 H, Glucose 244 H, Calcium 8.7 09/06/20 10:50: APTT 28.0 09/06/20 10:54: POC Glucose 234 H Current Medications Acetaminophen (Acetaminophen 325 Mg Tablet) 325 mg PO Q4H PRN PRN PRN Reason: Pain Score 1-10 Last Admin: 09/05/20 08:44 Dose: 325 mg Documented by: Al Hydroxide/Mg Hydroxide (Mag Hydrox/Al Hydrox/Simeth 30 Ml Udc) 30 ml PO Q4H PRN PRN PRN Reason: gi distress Albuterol Sulfate (Albuterol 2.5 Mg/3 Ml Vial.Neb.) 2.5 mg INHALATION Q4H PRN PRN Reason: Wheezing Last Admin: 09/06/20 05:24 Dose: 2.5 mg Documented by: Albuterol/Ipratropium (Ipratropium/Albuterol Sulfate 3 Ml Ampul.Neb) 3 ml INHALATION Q6H.RT EDD Last Admin: 09/06/20 13:05 Dose: 3 ml Documented by: Allopurinol (Allopurinol 100 Mg Tablet) 100 mg PO DAILYCM [facility] Last Admin: 09/06/20 09:26 Dose: 100 mg Documented by: Amiodarone HCl (Amiodarone 200 Mg Tablet) 200 mg PO DAILY [facility] Last Admin: 09/06/20 09:27 Dose: 200 mg Documented by: Aspirin (Aspirin 81 Mg Tab.Chew) 81 mg PO DAILY@0800 [facility] Last Admin: 09/06/20 09:26 Dose: 81 mg Documented by: Atorvastatin Calcium (Atorvastatin Calcium 80 Mg Tablet) 80 mg PO QHS [facility] Last Admin: 09/05/20 21:06 Dose: 80 mg Documented by: Budesonide (Budesonide Respules 0.5 Mg/2 Ml Ampul.Neb.) 0.5 mg INHALATION BID.RT [facility] Last Admin: 09/05/20 18:54 Dose: 0.5 mg Documented by: Dextrose (Dextrose 50%-Water 25 Gm/50 Ml Disp.Syrin) 0 gm IV X1 PRN; Protocol PRN Reason: Hypoglycemia Docusate Sodium (Docusate Sodium 100 Mg Capsule) 100 mg PO BID [facility] Last Admin: 09/06/20 09:27 Dose: 100 mg Documented by: Finasteride (Finasteride 5 Mg Tablet) 5 mg PO DAILY [facility] Last Admin: 09/06/20 09:27 Dose: 5 mg Documented by: Furosemide (Furosemide 40 Mg/4 Ml Vial) 40 mg IV Q8 [facility] Last Admin: 09/06/20 14:58 Dose: 40 mg Documented by: Glucagon (Glucagon 1 Mg/Ml Syringe) 1 mg IM .X1 PRN PRN Reason: Hypoglycemia Sodium Chloride () 250 mls @ 15 mls/hr IV .[id number] PRN PRN Reason: Saline Flush Last Infusion: 09/04/20 04:33 Dose: 0 mls/hr Documented by: Sodium Chloride () 250 mls @ 15 mls/hr IV .[id number] PRN PRN Reason: Additional IVPB Infusion Insulin [facility]argine ([facility]ulin [facility] Units[facility]) [facility] Admin: 09/05/20 21:06 Dose: 14 units Documented by: Insulin Human Lispro (Insulin Lispro 100 Unit/Ml Insuln.Pen) 0 unit SC ACHS [facility]; Protocol Last Admin: 09/06/20 10:55 Dose: 2 units Documented by: Levothyroxine Sodium (Levothyroxine 50 Mcg Tablet) 50 mcg PO DAILY@0600 [facility] Last Admin: 09/06/20 05:05 Dose: 50 mcg Documented by: Magnesium Hydroxide (Magnesium Hydroxide 30 Ml Udc) 30 ml PO DAILY PRN PRN PRN Reason: CONSTIPATION Metoprolol Succinate (Metoprolol(Xl)Succ 50 Mg Tablet) 50 mg PO DAILY [facility] Last Admin: 09/06/20 09:27 Dose: 50 mg Documented by: Nitroglycerin (Nitroglycerin (Inpatient Use) 0.4 Mg Tab.Subl) 0.4 mg SUBLINGUAL Q5M PRN PRN Reason: Angina Nutritional Formula (Lactose Free) (Glucerna Shake 120 Ml Liquid) 120 ml PO 4X/DAY [facility] Last Admin: 09/06/20 14:58 Dose: 120 ml Documented by: Ondansetron HCl (Ondansetron 4 Mg/2 Ml Vial) 4 mg IV Q6H PRN PRN PRN Reason: Nausea Last Admin: 09/01/20 19:52 Dose: 4 mg Documented by: Oxycodone HCl (Oxycodone 5 Mg Tablet) 5 mg PO Q4H PRN PRN PRN Reason: Pain Score 1-10 Last Admin: 09/01/20 22:17 Dose: 5 mg Documented by: Pantoprazole Sodium (Pantoprazole Sodium 20 Mg Tablet) 20 mg PO BID [facility] Last Admin: 09/06/20 09:27 Dose: 20 mg Documented by: Senna (Senna Tablet) 1 tablet PO DAILY [facility] Last Admin: 09/06/20 09:27 Dose: 1 tablet Documented by: Sodium Chloride (0.9% Saline Lock 10 Ml Syringe) 10 - 40 ml IV UD PRN PRN Reason: SALINE FLUSH Last Admin: 09/06/20 14:59 Dose: 10 ml Documented by: Tamsulosin HCl (Tamsulosin Hcl 0.4 Mg Capsule) 0.8 mg PO DAILY@0830 [facility] Last Admin: 09/06/20 09:26 Dose: 0.8 mg Documented by: Warfarin Sodium (Warfarin 5 Mg Tablet) 5 mg PO X1 ONE Stop: 09/06/20 17:01 Medical Necessity - Tobacco Use Smoking Status: Former smoker Tobacco Use: Non-smoker Assessment/Plan All Active Problems Hyperkalemia (Acute) GI bleed (Resolved) Supratherapeutic INR (Acute) Gross hematuria (Acute) Anticoagulation goal of INR 2.5 to 3.5 (Acute) Facial droop (Resolved) #1 chronic hypoxic respiratory failure secondary to chronic obstructive pulmonary disease and chronic systolic congestive heart failure-currently patient is on nasal cannula oxygen at 3 L #2 Acute on chronic systolic congestive heart failure-patient's echocardiogram revealed a 30% EF, patient will remain on IV Lasix #3 chronic kidney disease stage IV-patient's creatinine is slightly worse today, I have decided to reduce the patient's Lasix dosage and reevaluate him tomorrow. BMP in a.m. #4 atherosclerotic heart disease with recent BABATUNDE in 03/2020-patient will need to remain on Plavix and aspirin #5 ischemic cardiomyopathy/history of dilated cardiomyopathy-patient's repeat echocardiogram showed an EF of 30% with mild pulmonary hypertension. #6 chronic obstructive pulmonary disease #7 Schizoaffective disorder-patient remains off of any psychiatric medications at this time and appears stable #8 chronic atrial fibrillation- rate appears controlled at this time #9 mechanical aortic heart valve-patient will be given a dose of Coumadin today, I have decided to not place the patient on heparin yet and reevaluate him tomorrow. There is a significant chance that the patient may have recurrent hematuria, patient will need to start full anticoagulation soon however as he has a mechanical heart valve and he is at risk for stroke. I talked to urology about this today. #10 type 2 diabetes-patient's blood sugars will be monitored, sliding scale insulin to be used #11 chronic anemia-possibly secondary to chronic kidney disease #12 GERD #13 hyperlipidemia #14 hypothyroidism #15 hyperkalemia-resolved #16 acute on chronic anemia secondary to acute hematuria-patient's CBC will be rechecked tomorrow Prognosis remains guarded at this time due to the fact the patient has multiple medical problems Inpatient E&M: 38446 Subs Hosp L2
[2020-09-06 18:16] LABS: Bedside Glucose 346 mg/dL (70-110)
[2020-09-06] MEDS: Budesonide Respules 0.5 MG/2 ML AMPUL.NEB. INHALATION (19:34)
[2020-09-06] MEDS: Atorvastatin Calcium 80 MG Tablet PO (21:55)
[2020-09-06 23:06] LABS: Bedside Glucose 399 mg/dL (70-110)
[2020-09-07] VITALS (18 sets, daily range): BP systolic 92–118; BP diastolic 45–69; PULSE 63–84; RESP 16–20; TEMP 36.4–36.6; O2SAT 89–100
[2020-09-07] MEDS: Levothyroxine 50 MCG Tablet PO (05:34)
[2020-09-07] MEDS: Furosemide 40 MG/4 ML Vial IV (05:35)
[2020-09-07 06:01] LABS: Absolute Lymphocyte Count 0.83 X10^3/uL (0.83-4.51); Absolute Neutrophil Count 6.5 X10^3/uL (2.0-7.7); Basophil# 0.01 X10^3/uL; Basophil% 0.1 % (0-1); Hematocrit 28.3 % (40-54); Hemoglobin 8.6 g/dL (13.0-16.5); Lymphocyte # 0.83 X10^3/ul (4.0); Lymphocyte % 10.2 % (19-41); Mean Corp Hgb Conc 30.4 g/dL (32-36); Mean Corpuscular Hgb 27.6 pg (27.0-32.0); Mean Corpuscular Volume 90.7 fL (80-94); Mean Platelet Vol. 10.8 fl (6.2-12.0); Monocyte# 0.77 X10^3/uL; Monocyte% 9.5 % (0-10); NRBC Flagged by Analyzer 0.2 % (0-5); Neutrophil # 6.45 X10^3/uL (2.7-7.7); Neutrophil % 79.7 % (47-70); Platelet Count 194 K/mm3 (150-450); RBC Distribution Width CV 16.4 % (11.6-14.6); RBC Distribution Width SD 53.5 fl (35.1-43.9); Red Blood Count 3.12 M/mm3 (4.6-6.2); White Blood Count 8.1 K/mm3 (4.4-11.0)
[2020-09-07 06:17] LABS: International Normalized Ratio 1.2
[2020-09-07 06:37] LABS: Anion Gap 6 (5-15); BUN 74 mg/dL (7-18); BUN/Creat Ratio 25.3 RATIO (10-20); Chloride 91 mmol/L (98-107); Creatinine, Serum 2.93 mg/dL (0.70-1.30); EST Glomerular Filtration Rate 22 mL/min (>60); Est Glom Filt Rate - Afr Amer 27 mL/min (>60); Estimated Creatinine Clearance 19.78 ml/min; Glucose 219 mg/dL (74-106); Potassium 4.1 mmol/L (3.5-5.1); Sodium Level 130 mmol/L (136-145)
[2020-09-07] MEDS: Ipratropium/Albuterol Sulfate 3 ML AMPUL.NEB INHALATION ×3 (06:54→19:10)
[2020-09-07] MEDS: Budesonide Respules 0.5 MG/2 ML AMPUL.NEB. INHALATION ×2 (06:54→19:10)
[2020-09-07] MEDS: Insulin Lispro 100 UNIT/ML INSULN.PEN SC ×4 (06:56→22:16)
[2020-09-07 07:00] LABS: Bedside Glucose 184 mg/dL (70-110)
[2020-09-07 08:05] LABS: Prothrombin Time Fingerstick 23.9 SEC (11.9-14.4)
[2020-09-07] MEDS: 0.9% Saline Lock 10 ML Syringe IV (09:40)
[2020-09-07] MEDS: Aspirin 81 MG TAB.CHEW PO (09:40)
[2020-09-07] MEDS: Finasteride 5 MG Tablet PO (09:41)
[2020-09-07] MEDS: Amiodarone 200 MG Tablet PO (09:41)
[2020-09-07] MEDS: Metoprolol(XL)Succ 50 MG Tablet PO (09:41)
[2020-09-07] MEDS: Pantoprazole Sodium 20 MG Tablet PO ×2 (09:41→22:13)
[2020-09-07] MEDS: Tamsulosin HCl 0.4 MG Capsule 0.8 MG PO (09:41)
[2020-09-07] MEDS: Allopurinol 100 MG Tablet PO (09:41)
--- NOTE | 2020-09-07 10:13 | CASEMGMT ---
DARRON faxed updated clinicals to [facility]. DARRON also wrote on fax face sheet that patient is not going to be ready until Mon or as they are bridging him with a Heparin drip. Naomi RAMIREZ MSW
[2020-09-07 13:40] LABS: Bedside Glucose 294 mg/dL (70-110)
[2020-09-07 18:31] LABS: Bedside Glucose 219 mg/dL (70-110)
--- NOTE | 2020-09-07 18:44 | PN_ITS ---
Patient Problems: Active and Suspected Problems Supratherapeutic INR (Acute) Gross hematuria (Acute) Subjective: Patient was seen and examined today, he is on 3 L via nasal cannula and appears to be comfortable. Patient's creatinine is slightly more elevated today than yesterday-his creatinine is 2.93. I have held the patient's IV Lasix at this time, I will start him on oral Lasix tomorrow at 40 mg twice daily. I have decided to start the patient this afternoon on heparin due to his mechanical heart valve, I have also given him a dose of Coumadin today, patient's INR today was 1.2. Objective: General: Alert, Cooperative, No apparent distress, Well developed, Well nourished HEENT: Atraumatic, PERRLA, EOMI, Normocephalic Oral: Moist Mucosa Neck: Supple, No JVD, Trachea Midline, Thyroid Normal Size and Texture Lungs: Clear to auscultation, Normal air movement, No rhonchi, No wheeze, No rales Cardiovascular: Normal S1, Normal S2, PMI Normal, Irregular Rate, No rub noted, No Gallop, - - Mechanical click noted at the apex Abdomen: Bowel Sounds Present, Soft, Non Tender, Non-Distended Extremities: No clubbing, No cyanosis, No edema, Capillary Refill Less than 3 Seconds Skin: No rashes, No breakdown Musculoskeletal: No Tenderness to Palpation of Joints or Extremities Neurological: Cranial nerves II-XII grossly intact, Neuro grossly intact, Sensory exam intact to light touch and pain, Coordination normal Psych/Mental Status: - - Patient is alert and answers simple questions appropriately - Physical Exam Vitals/I&O's: Vital Signs Temp Pulse Resp BP Pulse Ox 97.6 F L 68 18 118/69 97 09/07/20 14:20 09/07/20 16:00 09/07/20 14:20 09/07/20 14:20 09/07/20 14:20 Oxygen Flow Rate (L/min) 3 Oxygen Delivery Method Nasal Cannula Weight: 89.04 kg Body Mass Index (BMI) 29.8 Finger Stick Blood Glucose 188 Intake and Output for Last 24 Hours 09/05/20 09/06/20 09/07/20 23:59 23:59 23:59 Intake Total 1650 / 1800 995 / 1235 900 / 900 Output Total 4475 / 4475 Balance -2825 / -2675 995 / 1235 900 / 900 Laboratory Results 09/04/20 14:54: POC PT 23.9 H, INR 2.10 09/06/20 21:51: POC Glucose 399 H 09/07/20 05:17: WBC 8.1, RBC 3.12 L, Hgb 8.6 L, Hct 28.3 L, MCV 90.7, MCH 27.6, MCHC 30.4 L, RDW Std Deviation 53.5 H, RDW Coeff of Yessi 16.4 H, Plt Count 194, MPV 10.8, Immature Gran % (Auto) 0.500, Neut % (Auto) 79.7 H, Lymph % (Auto) 10.2 L, [place] % (Auto) 9.5, Eos % (Auto) 0.0, Baso % (Auto) 0.1, Absolute Neuts (auto) 6.5, Absolute Lymphs (auto) 0.83, Nucleated RBC % 0.2 09/07/20 05:17: PT 15.0 H, INR 1.2 09/07/20 05:17: Sodium 130 L, Potassium 4.1, Chloride 91 L, Carbon Dioxide 33.0 H, Anion Gap 6, BUN 74 H, Creatinine 2.93 H, Estim Creat Clear Calc 19.78, Est GFR (MDRD) Af Amer 27 L, Est GFR (MDRD) Non-Af 22 L, BUN/Creatinine Ratio 25.3 H , Glucose 219 H, Calcium 9.0 09/07/20 06:55: POC Glucose 184 H 09/07/20 13:34: POC Glucose 294 H 09/07/20 16:58: POC Glucose 219 H 09/07/20 18:18: APTT Pending Current Medications Acetaminophen (Acetaminophen 325 Mg Tablet) 325 mg PO Q4H PRN PRN PRN Reason: Pain Score 1-10 Last Admin: 09/05/20 08:44 Dose: 325 mg Documented by: Al Hydroxide/Mg Hydroxide (Mag Hydrox/Al Hydrox/Simeth 30 Ml Udc) 30 ml PO Q4H PRN PRN PRN Reason: gi distress Albuterol Sulfate (Albuterol 2.5 Mg/3 Ml Vial.Neb.) 2.5 mg INHALATION Q4H PRN PRN Reason: Wheezing Last Admin: 09/06/20 05:24 Dose: 2.5 mg Documented by: Albuterol/Ipratropium (Ipratropium/Albuterol Sulfate 3 Ml Ampul.Neb) 3 ml INHALATION Q6H.RT [facility] Last Admin: 09/07/20 13:27 Dose: 3 ml Documented by: Allopurinol (Allopurinol 100 Mg Tablet) 100 mg PO DAILYCM [facility] Last Admin: 09/07/20 09:41 Dose: 100 mg Documented by: Amiodarone HCl (Amiodarone 200 Mg Tablet) 200 mg PO DAILY [facility] Last Admin: 09/07/20 09:41 Dose: 200 mg Documented by: Aspirin (Aspirin 81 Mg Tab.Chew) 81 mg PO DAILY@0800 [facility] Last Admin: 09/07/20 09:40 Dose: 81 mg Documented by: Atorvastatin Calcium (Atorvastatin Calcium 80 Mg Tablet) 80 mg PO QHS [facility] Last Admin: 09/06/20 21:55 Dose: 80 mg Documented by: Budesonide (Budesonide Respules 0.5 Mg/2 Ml Ampul.Neb.) 0.5 mg INHALATION BID.RT [facility] Last Admin: 09/07/20 06:54 Dose: 0.5 mg Documented by: Dextrose (Dextrose 50%-Water 25 Gm/50 Ml Disp.Syrin) 0 gm IV X1 PRN; Protocol PRN Reason: Hypoglycemia Docusate Sodium (Docusate Sodium 100 Mg Capsule) 100 mg PO BID [facility] Last Admin: 09/07/20 09:43 Dose: Not Given Documented by: Finasteride (Finasteride 5 Mg Tablet) 5 mg PO DAILY [facility] Last Admin: 09/07/20 09:41 Dose: 5 mg Documented by: Glucagon (Glucagon 1 Mg/Ml Syringe) 1 mg IM .X1 PRN PRN Reason: Hypoglycemia Sodium Chloride () 250 mls @ 15 mls/hr IV .[id number] PRN PRN Reason: Saline Flush Last Infusion: 09/04/20 04:33 Dose: 0 mls/hr Documented by: Sodium Chloride () 250 mls @ 15 mls/hr IV .[id number] PRN PRN Reason: Additional IVPB Infusion Heparin Sodium/Dextrose () 25,000 units in 250 mls @ 12 mls/hr IV .[id number] [facility]; Protocol Insulin Glargine (Insulin Glargine 100 Units/Ml Pen) 14 units SC QHS [facility] Last Admin: 09/06/20 21:55 Dose: 14 units Documented by: Insulin Human Lispro (Insulin Lispro 100 Unit/Ml Insuln.Pen) 0 unit SC [facility]; Protocol Last Admin: 09/07/20 16:59 Dose: 1 units Documented by: Levothyroxine Sodium (Levothyroxine 50 Mcg Tablet) 50 mcg PO DAILY@0600 [facility] Last Admin: 09/07/20 05:34 Dose: 50 mcg Documented by: Magnesium Hydroxide (Magnesium Hydroxide 30 Ml Udc) 30 ml PO DAILY PRN PRN PRN Reason: CONSTIPATION Metoprolol Succinate (Metoprolol(Xl)Succ 50 Mg Tablet) 50 mg PO DAILY [facility] Last Admin: 09/07/20 09:41 Dose: 50 mg Documented by: Nitroglycerin (Nitroglycerin (Inpatient Use) 0.4 Mg Tab.Subl) 0.4 mg SUBLINGUAL Q5M PRN PRN Reason: Angina Ondansetron HCl (Ondansetron 4 Mg/2 Ml Vial) 4 mg IV Q6H PRN PRN PRN Reason: Nausea Last Admin: 09/01/20 19:52 Dose: 4 mg Documented by: Oxycodone HCl (Oxycodone 5 Mg Tablet) 5 mg PO Q4H PRN PRN PRN Reason: Pain Score 1-10 Last Admin: 09/01/20 22:17 Dose: 5 mg Documented by: Pantoprazole Sodium (Pantoprazole Sodium 20 Mg Tablet) 20 mg PO BID [facility] Last Admin: 09/07/20 09:41 Dose: 20 mg Documented by: Senna (Senna Tablet) 1 tablet PO DAILY [facility] Last Admin: 09/07/20 09:43 Dose: Not Given Documented by: Sodium Chloride (0.9% Saline Lock 10 Ml Syringe) 10 - 40 ml IV UD PRN PRN Reason: SALINE FLUSH Last Admin: 09/07/20 09:40 Dose: 10 ml Documented by: Tamsulosin HCl (Tamsulosin Hcl 0.4 Mg Capsule) 0.8 mg PO DAILY@0830 [facility] Last Admin: 09/07/20 09:41 Dose: 0.8 mg Documented by: Warfarin Sodium (Warfarin 2.5 Mg Tablet) 2.5 mg PO DAILY@1700 [facility] Medical Necessity - Tobacco Use Smoking Status: Former smoker Tobacco Use: Non-smoker Assessment/Plan All Active Problems Hyperkalemia (Acute) GI bleed (Resolved) Supratherapeutic INR (Acute) Gross hematuria (Acute) Anticoagulation goal of INR 2.5 to 3.5 (Acute) Facial droop (Resolved) #1 chronic hypoxic respiratory failure secondary to chronic obstructive pulmonary disease and chronic systolic congestive heart failure-currently patient is on nasal cannula oxygen at 3 L #2 Acute on chronic systolic congestive heart failure-patient's echocardiogram revealed a 30% EF, patient will start on oral Lasix tomorrow #3 chronic kidney disease stage IV-patient's creatinine is slightly worse today, I have decided to reduce the patient's Lasix dosage and reevaluate him tomorrow. BMP in a.m. #4 atherosclerotic heart disease with recent BABATUNDE in 03/2020-patient will need to remain on Plavix and aspirin #5 ischemic cardiomyopathy/history of dilated cardiomyopathy-patient's repeat echocardiogram showed an EF of 30% with mild pulmonary hypertension. #6 chronic obstructive pulmonary disease #7 Schizoaffective disorder-patient remains off of any psychiatric medications at this time and appears stable #8 chronic atrial fibrillation- rate appears controlled at this time #9 mechanical aortic heart valve-patient will be given a dose of Coumadin today, patient will be started on IV heparin today, urology requested the patient not receive a bolus of heparin today, INR will be rechecked tomorrow, patient will not be able to return to his detention unless he is anticoagulated on Coumadin. #10 type 2 diabetes-patient's blood sugars will be monitored, sliding scale insulin to be used #11 chronic anemia-possibly secondary to chronic kidney disease #12 GERD #13 hyperlipidemia #14 hypothyroidism #15 hyperkalemia-resolved #16 acute on chronic anemia secondary to acute hematuria-patient's CBC will be rechecked tomorrow Prognosis remains guarded at this time due to the fact the patient has multiple medical problems Inpatient E&M: 83697 Subs Hosp L2
[2020-09-07 18:48] LABS: Partial Thromboplast Time 26.8 Seconds (24.1-36.2)
[2020-09-07] MEDS: HEPARIN/D5w 25,000 UNITS 25,000 UNITS/250 ML IV.SOLN. 12 UNITS IV (19:03)
[2020-09-07] MEDS: Atorvastatin Calcium 80 MG Tablet PO (22:14)
[2020-09-07] MEDS: Docusate Sodium 100 MG Capsule PO (22:14)
[2020-09-07 22:26] LABS: Bedside Glucose 262 mg/dL (70-110)
[2020-09-08] VITALS (17 sets, daily range): BP systolic 104–139; BP diastolic 54–72; PULSE 54–104; RESP 18–22; TEMP 36.4–36.8; O2SAT 94–99
[2020-09-08] MEDS: Ipratropium/Albuterol Sulfate 3 ML AMPUL.NEB INHALATION ×4 (00:28→19:12)
[2020-09-08 01:05] LABS: Partial Thromboplast Time 71.7 Seconds (24.1-36.2)
[2020-09-08] MEDS: Mag Hydrox/Al Hydrox/Simeth 30 ML UDC PO (01:08)
[2020-09-08] MEDS: Levothyroxine 50 MCG Tablet PO (05:47)
[2020-09-08] MEDS: Insulin Lispro 100 UNIT/ML INSULN.PEN SC ×4 (06:21→21:32)
[2020-09-08] MEDS: Budesonide Respules 0.5 MG/2 ML AMPUL.NEB. INHALATION ×2 (07:01→19:11)
[2020-09-08 07:06] LABS: Bedside Glucose 216 mg/dL (70-110)
[2020-09-08 07:30] LABS: International Normalized Ratio 1.3
--- NOTE | 2020-09-08 08:28 | PN_ITS ---
Patient Problems: Active and Suspected Problems Supratherapeutic INR (Acute) Gross hematuria (Acute) Reason for Visit: Follow-up on gross hematuria/mechanical valve disease/acute on chronic CHF Subjective: Patient was seen and examined. At time of being seen, he complains of rectal discomfort from his hemorrhoids. No bleeding seen in his stools. He later on had some urine incontinence that was blood-tinged. His heparin drip was initially discontinued; upon further discussion with urology, was agreed to resume heparin drip and go slow on his anticoagulation. Objective: Physical exam: Objective: General: Alert, Cooperative, No apparent distress, Well developed, Well nourished HEENT: Atraumatic, PERRLA, EOMI, Normocephalic Oral: Moist Mucosa Neck: Supple, No JVD, Trachea Midline, Thyroid Normal Size and Texture Lungs: Clear to auscultation, Normal air movement, No rhonchi, No wheeze, No rales Cardiovascular: Normal S1, Normal S2, PMI Normal, Irregular Rate, No rub noted, No Gallop, - - Mechanical click noted at the apex Abdomen: Bowel Sounds Present, Soft, Non Tender, Non-Distended Extremities: No clubbing, No cyanosis, No edema, Capillary Refill Less than 3 Seconds Skin: No rashes, No breakdown Musculoskeletal: No Tenderness to Palpation of Joints or Extremities Neurological: Cranial nerves II-XII grossly intact, Neuro grossly intact, Sensory exam intact to light touch and pain, Coordination normal Psych/Mental Status: - - Patient is alert and answers simple questions appropriately Vitals/I&O's: Vital Signs Temp Pulse Resp BP Pulse Ox 98.2 F 61 18 122/55 H 95 09/08/20 02:00 09/08/20 07:01 09/08/20 07:01 09/08/20 02:00 09/08/20 07:01 Oxygen Flow Rate (L/min) 3 Oxygen Delivery Method Nasal Cannula Weight: 89.04 kg Body Mass Index (BMI) 29.8 Finger Stick Blood Glucose 188 Intake and Output for Last 24 Hours 09/06/20 09/07/20 09/08/20 23:59 23:59 23:59 Intake Total 995 / 1235 1140 / 1140 200 / 200 Balance 995 / 1235 1140 / 1140 200 / 200 Laboratory Results 09/07/20 13:34: POC Glucose 294 H 09/07/20 16:58: POC Glucose 219 H 09/07/20 18:18: APTT 26.8 09/07/20 22:16: POC Glucose 262 H 09/08/20 00:46: APTT 71.7 H 09/08/20 06:20: POC Glucose 216 H 09/08/20 06:50: PT 16.0 H, INR 1.3 09/08/20 06:50: APTT Pending Current Medications Acetaminophen (Acetaminophen 325 Mg Tablet) 325 mg PO Q4H PRN PRN PRN Reason: Pain Score 1-10 Last Admin: 09/05/20 08:44 Dose: 325 mg Documented by: Al Hydroxide/Mg Hydroxide (Mag Hydrox/Al Hydrox/Simeth 30 Ml Udc) 30 ml PO Q4H PRN PRN PRN Reason: gi distress Last Admin: 09/08/20 01:08 Dose: 30 ml Documented by: Albuterol Sulfate (Albuterol 2.5 Mg/3 Ml Vial.Neb.) 2.5 mg INHALATION Q4H PRN PRN Reason: Wheezing Last Admin: 09/06/20 05:24 Dose: 2.5 mg Documented by: Albuterol/Ipratropium (Ipratropium/Albuterol Sulfate 3 Ml Ampul.Neb) 3 ml INHALATION Q6H.RT [facility] Last Admin: 09/08/20 07:01 Dose: 3 ml Documented by: [facility] ([facility] Last Admin: 09/07/20 09:41 Dose: 100 mg Documented by: Amiodarone HCl (Amiodarone 200 Mg Tablet) 200 mg PO DAILY [facility] Last Admin: 09/07/20 09:41 Dose: 200 mg Documented by: Aspirin (Aspirin 81 Mg Tab.Chew) 81 mg PO DAILY@0800 [facility] Last Admin: 09/07/20 09:40 Dose: 81 mg Documented by: Atorvastatin Calcium (Atorvastatin Calcium 80 Mg Tablet) 80 mg PO QHS [facility] Last Admin: 09/07/20 22:14 Dose: 80 mg Documented by: Budesonide (Budesonide Respules 0.5 Mg/2 Ml Ampul.Neb.) 0.5 mg INHALATION BID.RT [facility] Last Admin: 09/08/20 07:01 Dose: 0.5 mg Documented by: Dextrose (Dextrose 50%-Water 25 Gm/50 Ml Disp.Syrin) 0 gm IV X1 PRN; Protocol PRN Reason: Hypoglycemia Docusate Sodium (Docusate Sodium 100 Mg Capsule) 100 mg PO BID [facility] Last Admin: 09/07/20 22:14 Dose: 100 mg Documented by: Finasteride (Finasteride 5 Mg Tablet) 5 mg PO DAILY [facility] Last Admin: 09/07/20 09:41 Dose: 5 mg Documented by: Glucagon (Glucagon 1 Mg/Ml Syringe) 1 mg IM .X1 PRN PRN Reason: Hypoglycemia Sodium Chloride () 250 mls @ 15 mls/hr IV .[id number] PRN PRN Reason: Saline Flush Last Infusion: 09/04/20 04:33 Dose: 0 mls/hr Documented by: Sodium Chloride () 250 mls @ 15 mls/hr IV .[id number] PRN PRN Reason: Additional IVPB Infusion Heparin Sodium/Dextrose () 25,000 units in 250 mls @ 12 mls/hr IV .[id number] [facility]; Protocol Last Admin: 09/07/20 19:03 Dose: 1,200 units/hr, 12 mls/hr Documented by: Insulin Glargine (Insulin Glargine 100 Units/Ml Pen) 14 units SC QHS [facility] Last Admin: 09/07/20 22:17 Dose: 14 units Documented by: Insulin Human Lispro (Insulin Lispro 100 Unit/Ml Insuln.Pen) 0 unit SC ACHS [facility]; Protocol Last Admin: 09/08/20 06:21 Dose: 1 units Documented by: Levothyroxine Sodium (Levothyroxine 50 Mcg Tablet) 50 mcg PO DAILY@0600 [facility] Last Admin: 09/08/20 05:47 Dose: 50 mcg Documented by: Magnesium Hydroxide (Magnesium Hydroxide 30 Ml Udc) 30 ml PO DAILY PRN PRN PRN Reason: CONSTIPATION Metoprolol Succinate (Metoprolol(Xl)Succ 50 Mg Tablet) 50 mg PO DAILY [facility] Last Admin: 09/07/20 09:41 Dose: 50 mg Documented by: Nitroglycerin (Nitroglycerin (Inpatient Use) 0.4 Mg Tab.Subl) 0.4 mg SUBLINGUAL Q5M PRN PRN Reason: Angina Nystatin (Nystatin Ointment) 1 applic TOPICAL BID [facility]; Protocol Ondansetron HCl (Ondansetron 4 Mg/2 Ml Vial) 4 mg IV Q6H PRN PRN PRN Reason: Nausea Last Admin: 09/01/20 19:52 Dose: 4 mg Documented by: Oxycodone HCl (Oxycodone 5 Mg Tablet) 5 mg PO Q4H PRN PRN PRN Reason: Pain Score 1-10 Last Admin: 09/01/20 22:17 Dose: 5 mg Documented by: Pantoprazole Sodium (Pantoprazole Sodium 20 Mg Tablet) 20 mg PO BID [facility] Last Admin: 09/07/20 22:13 Dose: 20 mg Documented by: Senna (Senna Tablet) 1 tablet PO DAILY [facility] Last Admin: 09/07/20 09:43 Dose: Not Given Documented by: Sodium Chloride (0.9% Saline Lock 10 Ml Syringe) 10 - 40 ml IV UD PRN PRN Reason: SALINE FLUSH Last Admin: 09/07/20 09:40 Dose: 10 ml Documented by: Tamsulosin HCl (Tamsulosin Hcl 0.4 Mg Capsule) 0.8 mg PO DAILY@0830 [facility] Last Admin: 09/07/20 09:41 Dose: 0.8 mg Documented by: Warfarin Sodium (Warfarin 2.5 Mg Tablet) 2.5 mg PO DAILY@1700 [facility] STROKE Vital Signs/Narrative: Vital Signs Pulse Resp Pulse Ox 09/08/20 07:01 61 18 95 Medical Necessity - Tobacco Use Smoking Status: Former smoker Tobacco Use: Non-smoker Assessment/Plan All Active Problems Hyperkalemia (Acute) GI bleed (Resolved) Supratherapeutic INR (Acute) Gross hematuria (Acute) Anticoagulation goal of INR 2.5 to 3.5 (Acute) Facial droop (Resolved) 1. Acute on chronic heart failure with reduced EF, EF of 30%, patient is fluid overloaded We will give patient Lasix 40 mg IV x1, start CHF protocol with fluid restriction, AL wraps to lower extremities Repeat renal function in a.m. 2. Acute on chronic hypoxic respiratory failure secondary to acute CHF/history of COPD Patient currently on 3 L of oxygen, will continue to monitor 3. Gross hematuria for cystoscopy with evacuation of blood clots, TURP with a bipolar rectal scope on 09/04/20 Urology following 4. Mechanical aortic heart valve/chronic atrial fibrillation/CAD status post stent in March 2020/hypertension INR is currently 1.3, continue on heparin drip, aspirin, statin, metoprolol, warfarin 2 mg daily for now, repeat INR in a.m. 5. Type II DM, sugars are uncontrolled, will increase Lantus to 18 units daily, continue with insulin sliding scale 6. Hypothyroidism, continue on synthroid 7. HUONG on CKD stage IV, plan creatinine 1.3-1.6 Creatinine currently 3.1, nephrology consulted, following Repeat blood work in a.m. 8. DVT prophylaxis?on heparin drip Inpatient E&M: 74673 Subs Hosp L2
[2020-09-08 08:33] LABS: Partial Thromboplast Time 53.8 Seconds (24.1-36.2)
[2020-09-08] MEDS: Senna Tablet 1 TABLET PO (09:07)
[2020-09-08] MEDS: Docusate Sodium 100 MG Capsule PO ×2 (09:07→21:37)
[2020-09-08 09:08] LABS: Absolute Lymphocyte Count 1.49 X10^3/uL (0.83-4.51); Absolute Neutrophil Count 6.1 X10^3/uL (2.0-7.7); Basophil# 0.04 X10^3/uL; Basophil% 0.5 % (0-1); Eosinophil# 0.19 X10^3/uL; Eosinophils% 2.2 % (0-5); Hematocrit 29.3 % (40-54); Lymphocyte # 1.49 X10^3/ul (4.0); Lymphocyte % 17.1 % (19-41); Mean Corp Hgb Conc 30.7 g/dL (32-36); Mean Corpuscular Hgb 27.9 pg (27.0-32.0); Mean Corpuscular Volume 90.7 fL (80-94); Mean Platelet Vol. 10.8 fl (6.2-12.0); Monocyte# 0.82 X10^3/uL; Monocyte% 9.4 % (0-10); NRBC Flagged by Analyzer 0.2 % (0-5); Neutrophil # 6.13 X10^3/uL (2.7-7.7); Neutrophil % 70.3 % (47-70); Platelet Count 184 K/mm3 (150-450); RBC Distribution Width CV 16.7 % (11.6-14.6); RBC Distribution Width SD 54.7 fl (35.1-43.9); Red Blood Count 3.23 M/mm3 (4.6-6.2); White Blood Count 8.7 K/mm3 (4.4-11.0)
[2020-09-08] MEDS: Allopurinol 100 MG Tablet PO (09:08)
[2020-09-08] MEDS: Tamsulosin HCl 0.4 MG Capsule 0.8 MG PO (09:08)
[2020-09-08] MEDS: Metoprolol(XL)Succ 50 MG Tablet PO (09:08)
[2020-09-08] MEDS: Pantoprazole Sodium 20 MG Tablet PO ×2 (09:08→21:37)
[2020-09-08] MEDS: Amiodarone 200 MG Tablet PO (09:08)
[2020-09-08] MEDS: Aspirin 81 MG TAB.CHEW PO (09:11)
[2020-09-08] MEDS: Finasteride 5 MG Tablet PO (09:12)
[2020-09-08] MEDS: Heparin 10,000 UNITS/10 ML Vial 1000 UNITS IV (09:12)
[2020-09-08] MEDS: Nystatin Ointment 1 APPLIC TOPICAL ×2 (09:15→21:37)
[2020-09-08 09:35] LABS: ALB/GLOB Ratio 0.6 RATIO (0.9-2.4); AST(SGOT) 41 U/L (15-37); Alanine Aminotransfer ALT/SGPT 141 U/L (16-61); Albumin, Serum 2.7 g/dL (3.2-5.0); Alkaline Phosphatase 78 U/L (45-117); Anion Gap 7 (5-15); BUN 84 mg/dL (7-18); BUN/Creat Ratio 27.1 RATIO (10-20); Calcium,Total 8.9 mg/dL (8.5-10.1); Chloride 90 mmol/L (98-107); EST Glomerular Filtration Rate 21 mL/min (>60); Est Glom Filt Rate - Afr Amer 25 mL/min (>60); Estimated Creatinine Clearance 18.69 ml/min; Globulin 4.3 g/dL (2.2-4.2); Glucose 196 mg/dL (74-106); Potassium 3.4 mmol/L (3.5-5.1); Sodium Level 130 mmol/L (136-145)
--- NOTE | 2020-09-08 12:35 | RAD_ITS ---
STUDY: X-RAY CHEST REASON FOR EXAM: Male, 80 years old. Shortness of breath, congestive heart failure. TECHNIQUE: Single AP portable view of the chest. COMPARISON: Comparison is made with prior examination dated 09/06/2020. FINDINGS: EKG electrodes are seen. Since prior study, there has been progressive CHF with bibasilar atelectasis more prominent in the left lower lobe. Blunting of both costophrenic angles. There is moderate cardiac enlargement. Prior aortic valve replacement. Normal mediastinum and roberth. Normal visualized pulmonary arteries. There is atherosclerotic calcification of the aortic arch with tortuosity. There are diffuse degenerative changes of the visualized thoracic spine. Normal visualized ribs, clavicles, and shoulders. There is no demonstrated abnormality of the visualized soft tissue structures of the upper abdomen. RAD/Chest 1 View (Portable) IMPRESSION: Progressive CHF with small bilateral pleural effusions and bibasilar atelectasis slightly worse at the left lung base. Electronically Signed: Cyrus Saeed MD at 12:48 EST , Service support ,
--- NOTE | 2020-09-08 13:01 | PCM.PN.BLA ---
Progress Note 80-year-old male status post TURP for clot retention. He is on heparin drip because of mechanical heart valve and is restarted on Coumadin working to slowly increase this to try to get him therapeutic without causing bleeding so far is doing well urine today looked okay just a little bit of tea color but no heavy bleeding no clots. STROKE Vital Signs/Narrative: Vital Signs Pulse 09/08/20 09:08 104 H
[2020-09-08 13:16] LABS: Bedside Glucose 310 mg/dL (70-110)
[2020-09-08 13:47] LABS: Partial Thromboplast Time 112.2 Seconds (24.1-36.2)
[2020-09-08] MEDS: Potassium Chloride Oral Tablet 20 MEQ 40 MEQ PO (13:58)
[2020-09-08] MEDS: Furosemide 40 MG/4 ML Vial IV (14:06)
[2020-09-08] MEDS: 0.9% Saline Lock 10 ML Syringe IV ×2 (14:07→16:39)
--- NOTE | 2020-09-08 15:18 | PN.RENAL_ITS ---
Patient Problems: Active and Suspected Problems Supratherapeutic INR (Acute) Gross hematuria (Acute) Subjective: up to chair, no complaints of SOB, edema under control. - Physical Exam Vitals/I&O's: Vital Signs Temp Pulse Resp BP Pulse Ox 97.6 F L 79 20 H 115/61 95 09/08/20 13:50 09/08/20 13:50 09/08/20 13:50 09/08/20 13:50 09/08/20 13:50 Oxygen Flow Rate (L/min) 2 Oxygen Delivery Method Nasal Cannula Weight: 89.04 kg Body Mass Index (BMI) 29.8 Finger Stick Blood Glucose 188 Intake and Output for Last 24 Hours 09/06/20 09/07/20 09/08/20 23:59 23:59 23:59 Intake Total 995 / 1235 1140 / 1140 551.63 / 551.63 Output Total 150 / 150 Balance 995 / 1235 1140 / 1140 401.63 / 401.63 General: Alert, Oriented x3, Cooperative, No apparent distress Lungs: Diminished Cardiovascular: Irregular Rate Abdomen: Bowel Sounds Present, Soft, Non Tender, Non-Distended, Obese Extremities: Edema - gui wrapped Psych/Mental Status: Alert and oriented to time, place, person, mood and affect Laboratory Results 09/07/20 16:58: POC Glucose 219 H 09/07/20 18:18: APTT 26.8 09/07/20 22:16: POC Glucose 262 H 09/08/20 00:46: APTT 71.7 H 09/08/20 06:20: POC Glucose 216 H 09/08/20 06:50: PT 16.0 H, INR 1.3 09/08/20 06:50: APTT 53.8 H 09/08/20 08:52: WBC 8.7, RBC 3.23 L, Hgb 9.0 L, Hct 29.3 L, MCV 90.7, MCH 27.9, MCHC 30.7 L, RDW Std Deviation 54.7 H, RDW Coeff of Yessi 16.7 H, Plt Count 184, MPV 10.8, Immature Gran % (Auto) 0.500, Neut % (Auto) 70.3 H, Lymph % (Auto) 17.1 L, [place] % (Auto) 9.4, Eos % (Auto) 2.2, Baso % (Auto) 0.5, Absolute Neuts (auto) 6.1, Absolute Lymphs (auto) 1.49, Nucleated RBC % 0.2 09/08/20 08:52: Sodium 130 L, Potassium 3.4 L, Chloride 90 L, Carbon Dioxide 33.0 H, Anion Gap 7, BUN 84 H, Creatinine 3.10 H, Estim Creat Clear Calc 18.69, Est GFR (MDRD) Af Amer 25 L, Est GFR (MDRD) Non-Af 21 L, BUN/Creatinine Ratio 27.1 H, Glucose 196 H, Calcium 8.9, Total Bilirubin 0.80, AST 41 H, ALT 141 H, Alkaline Phosphatase 78, Total Protein 7.0, Albumin 2.7 L, Globulin 4.3 H, Albumin/Globulin Ratio 0.6 L 09/08/20 12:17: POC Glucose 310 H 09/08/20 13:29: APTT 112.2 H* Current Medications Acetaminophen (Acetaminophen 325 Mg Tablet) 325 mg PO Q4H PRN PRN PRN Reason: Pain Score 1-10 Last Admin: 09/05/20 08:44 Dose: 325 mg Documented by: Al Hydroxide/Mg Hydroxide (Mag Hydrox/Al Hydrox/Simeth 30 Ml Udc) 30 ml PO Q4H PRN PRN PRN Reason: gi distress Last Admin: 09/08/20 01:08 Dose: 30 ml Documented by: Albuterol Sulfate (Albuterol 2.5 Mg/3 Ml Vial.Neb.) 2.5 mg INHALATION Q4H PRN PRN Reason: Wheezing Last Admin: 09/06/20 05:24 Dose: 2.5 mg Documented by: Albuterol/Ipratropium (Ipratropium/Albuterol Sulfate 3 Ml Ampul.Neb) 3 ml INHALATION Q6H.RT [facility] Last Admin: 09/08/20 12:41 Dose: 3 ml Documented by: Allopurinol (Allop[facility]ol 100 Mg Tablet) [facility] Last Admin: 09/08/20 09:08 Dose: 100 mg Documented by: Amiodarone HCl (Amiodarone 200 Mg Tablet) 200 mg PO DAILY [facility] Last Admin: 09/08/20 09:08 Dose: 200 mg Documented by: Aspirin (Aspirin 81 Mg Tab.Chew) 81 mg PO DAILY@0800 [facility] Last Admin: 09/08/20 09:11 Dose: 81 mg Documented by: Atorvastatin Calcium (Atorvastatin Calcium 80 Mg Tablet) 80 mg PO QHS [facility] Last Admin: 09/07/20 22:14 Dose: 80 mg Documented by: Budesonide (Budesonide Respules 0.5 Mg/2 Ml Ampul.Neb.) 0.5 mg INHALATION BID.RT [facility] Last Admin: 09/08/20 07:01 Dose: 0.5 mg Documented by: Dextrose (Dextrose 50%-Water 25 Gm/50 Ml Disp.Syrin) 0 gm IV X1 PRN; Protocol PRN Reason: Hypoglycemia Docusate Sodium (Docusate Sodium 100 Mg Capsule) 100 mg PO BID [facility] Last Admin: 09/08/20 09:07 Dose: 100 mg Documented by: Finasteride (Finasteride 5 Mg Tablet) 5 mg PO DAILY [facility] Last Admin: 09/08/20 09:12 Dose: 5 mg Documented by: Glucagon (Glucagon 1 Mg/Ml Syringe) 1 mg IM .X1 PRN PRN Reason: Hypoglycemia Heparin Sodium (Porcine) (Heparin Injection (Vial) 5,000 Unit/Ml Vial) 0 unit IV UD PRN; Protocol PRN Reason: dose adjustment Sodium Chloride () 250 mls @ 15 mls/hr IV .[id number] PRN PRN Reason: Saline Flush Last Infusion: 09/04/20 04:33 Dose: 0 mls/hr Documented by: Sodium Chloride () 250 mls @ 15 mls/hr IV .[id number] PRN PRN Reason: Additional IVPB Infusion Heparin Sodium/Dextrose () 25,000 units in 250 mls @ 12 mls/hr IV .[id number] [facility]; Protocol Insulin Glargine (Insulin Glargine 100 Units/Ml Pen) 14 units SC QHS [facility] Last Admin: 09/07/20 22:17 Dose: 14 units Documented by: Insulin Human Lispro (Insulin Lispro 100 Unit/Ml Insuln.Pen) [facility]; Protocol Last Admin: 09/08/20 12:20 Dose: 3 units Documented by: Levothyroxine Sodium (Levothyroxine 50 Mcg Tablet) 50 mcg PO DAILY@0600 [facility] Last Admin: 09/08/20 05:47 Dose: 50 mcg Documented by: Magnesium Hydroxide (Magnesium Hydroxide 30 Ml Udc) 30 ml PO DAILY PRN PRN PRN Reason: CONSTIPATION Metoprolol Succinate (Metoprolol(Xl)Succ 50 Mg Tablet) 50 mg PO DAILY [facility] Last Admin: 09/08/20 09:08 Dose: 50 mg Documented by: Nitroglycerin (Nitroglycerin (Inpatient Use) 0.4 Mg Tab.Subl) 0.4 mg SUBLINGUAL Q5M PRN PRN Reason: Angina Nystatin (Nystatin Ointment) 1 applic TOPICAL BID [facility]; Protocol Last Admin: 09/08/20 09:15 Dose: 1 applicatio Documented by: Oxycodone HCl (Oxycodone 5 Mg Tablet) 5 mg PO Q4H PRN PRN PRN Reason: Pain Score 1-10 Last Admin: 09/01/20 22:17 Dose: 5 mg Documented by: Pantoprazole Sodium (Pantoprazole Sodium 20 Mg Tablet) 20 mg PO BID [facility] Last Admin: 09/08/20 09:08 Dose: 20 mg Documented by: Senna (Senna Tablet) 1 tablet PO DAILY [facility] Last Admin: 09/08/20 09:07 Dose: 1 tablet Documented by: Sodium Chloride (0.9% Saline Lock 10 Ml Syringe) 10 - 40 ml IV UD PRN PRN Reason: SALINE FLUSH Last Admin: 09/08/20 14:07 Dose: 10 ml Documented by: Tamsulosin HCl (Tamsulosin Hcl 0.4 Mg Capsule) 0.8 mg PO DAILY@0830 [facility] Last Admin: 09/08/20 09:08 Dose: 0.8 mg Documented by: Warfarin Sodium (Jantoven 2 Mg Tablet) 2 mg PO DAILY@1700 [facility] Medical Necessity - Tobacco Use Smoking Status: Former smoker Tobacco Use: Non-smoker Assessment/Plan All Active Problems Hyperkalemia (Acute) GI bleed (Resolved) Supratherapeutic INR (Acute) Gross hematuria (Acute) Anticoagulation goal of INR 2.5 to 3.5 (Acute) Facial droop (Resolved) 1. Acute on CKD baseline creatinine 1.3 to 1.6. Creatinine increased to 3.1 from 2.5. Hypotensive. 2. Hyperkalemia resolved 3. Hyponatremia from volume expansion. LAsix x1 4. mechanical AVR on anticoagulation on heparin drip 5. 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 Schizoaffective disorder DW hospitalist
[2020-09-08] MEDS: HEPARIN/D5w 25,000 UNITS 25,000 UNITS/250 ML IV.SOLN. 10 UNITS IV (16:32)
[2020-09-08] MEDS: Jantoven 2 MG Tablet PO (16:40)
--- NOTE | 2020-09-08 16:54 | CHAPLAIN ---
Type of Pastoral Visit ___ Initial Visit _x__ Follow-up Visit ___ On-call Visit ___ General Patient Visit ___ Spiritual Assessment ___ Family Conference ___ Bereavement ___ Rapid Response ___ Code Blue ___ Other (describe below) Pastoral Care Referral From _x__ Patient ___ Family ___ Nurse ___ Physician ___ Body And Fender Worker ___ Beam Machine Operator ___ Other (describe below) Sacrament/Intervention _x__ Active listening ___ Anointing ___ Synagogue ___ Bereavement ___ Communion ___ Dolores exploration ___ ___ Life review _x__ Prayer ___ Reconciliation ___ Sacrament of Sick _x__ Supportive presence ___ Wedding ___ Other (describe below) Pastoral Comments
[2020-09-08 17:10] LABS: Bedside Glucose 317 mg/dL (70-110)
--- NOTE | 2020-09-08 18:41 | NURSING ---
reviewed and agree with documentation by JEANIE Arevalo
[2020-09-08] MEDS: Atorvastatin Calcium 80 MG Tablet PO (21:37)
[2020-09-08 21:51] LABS: Bedside Glucose 306 mg/dL (70-110)
[2020-09-08 22:25] LABS: Partial Thromboplast Time 51.3 Seconds (24.1-36.2)
[2020-09-08] MEDS: Heparin Injection (Vial) 5,000 UNIT/ML VIAL IV (22:39)
[2020-09-08] MEDS: Albuterol 2.5 MG/3 ML VIAL.NEB. INHALATION (23:52)
[2020-09-09] VITALS (19 sets, daily range): BP systolic 103–144; BP diastolic 54–69; PULSE 56–78; RESP 18–21; TEMP 36.3–36.9; O2SAT 92–95
[2020-09-09 04:58] LABS: Absolute Lymphocyte Count 1.42 X10^3/uL (0.83-4.51); Absolute Neutrophil Count 6.1 X10^3/uL (2.0-7.7); Basophil# 0.03 X10^3/uL; Basophil% 0.3 % (0-1); Eosinophil# 0.16 X10^3/uL; Eosinophils% 1.9 % (0-5); Hematocrit 27.8 % (40-54); Hemoglobin 8.8 g/dL (13.0-16.5); Lymphocyte # 1.42 X10^3/ul (4.0); Lymphocyte % 16.5 % (19-41); Mean Corp Hgb Conc 31.7 g/dL (32-36); Mean Corpuscular Hgb 27.8 pg (27.0-32.0); Mean Corpuscular Volume 87.7 fL (80-94); Mean Platelet Vol. 10.5 fl (6.2-12.0); Monocyte# 0.84 X10^3/uL; Monocyte% 9.8 % (0-10); NRBC Flagged by Analyzer 0 % (0-5); Neutrophil # 6.13 X10^3/uL (2.7-7.7); Neutrophil % 71.2 % (47-70); Platelet Count 185 K/mm3 (150-450); RBC Distribution Width CV 16.5 % (11.6-14.6); RBC Distribution Width SD 52.8 fl (35.1-43.9); Red Blood Count 3.17 M/mm3 (4.6-6.2); White Blood Count 8.6 K/mm3 (4.4-11.0)
[2020-09-09 05:13] LABS: Partial Thromboplast Time 83.8 Seconds (24.1-36.2)
[2020-09-09 05:17] LABS: International Normalized Ratio 1.4; Prothrombin Time (Protime)PT. 16.4 SECONDS (11.7-14.9)
[2020-09-09 05:20] LABS: ALB/GLOB Ratio 0.6 RATIO (0.9-2.4); AST(SGOT) 27 U/L (15-37); Alanine Aminotransfer ALT/SGPT 107 U/L (16-61); Albumin, Serum 2.5 g/dL (3.2-5.0); Alkaline Phosphatase 76 U/L (45-117); Anion Gap 7 (5-15); BUN 84 mg/dL (7-18); BUN/Creat Ratio 31.6 RATIO (10-20); Calcium,Total 8.7 mg/dL (8.5-10.1); Chloride 92 mmol/L (98-107); Creatinine, Serum 2.66 mg/dL (0.70-1.30); EST Glomerular Filtration Rate 25 mL/min (>60); Est Glom Filt Rate - Afr Amer 30 mL/min (>60); Estimated Creatinine Clearance 21.79 ml/min; Glucose 181 mg/dL (74-106); Potassium 3.6 mmol/L (3.5-5.1); Protein, Total 6.5 g/dL (6.4-8.2); Sodium Level 129 mmol/L (136-145)
[2020-09-09] MEDS: Levothyroxine 50 MCG Tablet PO (05:45)
[2020-09-09] MEDS: Hydrocortisone 25 MG Suppository RC (05:45)
[2020-09-09] MEDS: Insulin Lispro 100 UNIT/ML INSULN.PEN SC ×4 (05:53→21:01)
[2020-09-09 07:05] LABS: Bedside Glucose 176 mg/dL (70-110)
[2020-09-09] MEDS: Ipratropium/Albuterol Sulfate 3 ML AMPUL.NEB INHALATION ×3 (07:20→19:46)
[2020-09-09] MEDS: Budesonide Respules 0.5 MG/2 ML AMPUL.NEB. INHALATION ×2 (07:30→19:47)
[2020-09-09] MEDS: Finasteride 5 MG Tablet PO (08:20)
[2020-09-09] MEDS: Pantoprazole Sodium 20 MG Tablet PO ×2 (08:20→21:02)
[2020-09-09] MEDS: Tamsulosin HCl 0.4 MG Capsule 0.8 MG PO (08:20)
[2020-09-09] MEDS: Docusate Sodium 100 MG Capsule PO ×2 (08:20→21:01)
[2020-09-09] MEDS: Aspirin 81 MG TAB.CHEW PO (08:20)
[2020-09-09] MEDS: Amiodarone 200 MG Tablet PO (08:20)
[2020-09-09] MEDS: Metoprolol(XL)Succ 50 MG Tablet PO (08:21)
[2020-09-09] MEDS: Senna Tablet 1 TABLET PO (08:24)
--- NOTE | 2020-09-09 08:53 | PCM.PN.BLA ---
Progress Note renal fxn improved, hyponatremia persists with edema. Lasix iv today with po KCL. VSS afebrile. BP improved. Urine output not documented but states urinating well. Still with edema. Hematuria resolved. remains in afib labs reviewed. continue to monitor labs. STROKE Vital Signs/Narrative: Vital Signs Pulse Resp Pulse Ox 09/09/20 08:21 67 09/09/20 07:50 66 09/09/20 07:43 95 09/09/20 07:20 78 20 H
[2020-09-09] MEDS: Furosemide 40 MG/4 ML Vial IV (10:27)
[2020-09-09] MEDS: Potassium Chloride Oral Tablet 20 MEQ 40 MEQ PO (10:27)
[2020-09-09] MEDS: 0.9% Saline Lock 10 ML Syringe IV (10:27)
[2020-09-09 12:10] LABS: Bedside Glucose 192 mg/dL (70-110)
[2020-09-09 12:13] LABS: Partial Thromboplast Time 56.3 Seconds (24.1-36.2)
[2020-09-09] MEDS: Nystatin Ointment 1 APPLIC TOPICAL ×2 (14:32→21:03)
--- NOTE | 2020-09-09 16:40 | PN_ITS ---
Patient Problems: Active and Suspected Problems Supratherapeutic INR (Acute) Gross hematuria (Acute) Reason for Visit: Follow-up on gross hematuria/mechanical valve disease/acute on chronic CHF Subjective: Patient was seen and examined. [place] improved. His urine is pink in color. Denied any dizziness or palpitations or shortness of breath Objective: Physical exam: Objective: General: Alert, Cooperative, No apparent distress, Well developed, Well nourished HEENT: Atraumatic, PERRLA, EOMI, Normocephalic Oral: Moist Mucosa Neck: Supple, No JVD, Trachea Midline, Thyroid Normal Size and Texture Lungs: Clear to auscultation, Normal air movement, No rhonchi, No wheeze, No rales Cardiovascular: Normal S1, Normal S2, PMI Normal, Irregular Rate, No rub noted, No Gallop, - - Mechanical click noted at the apex Abdomen: Bowel Sounds Present, Soft, Non Tender, Non-Distended Extremities: No clubbing, No cyanosis, No edema, Capillary Refill Less than 3 Seconds Skin: No rashes, No breakdown Musculoskeletal: No Tenderness to Palpation of Joints or Extremities Neurological: Cranial nerves II-XII grossly intact, Neuro grossly intact, Sensory exam intact to light touch and pain, Coordination normal Psych/Mental Status: - - Patient is alert and answers simple questions appropriately Vitals/I&O's: Vital Signs Temp Pulse Resp BP Pulse Ox 97.3 F L 70 18 103/54 L 95 09/09/20 14:30 09/09/20 14:30 09/09/20 14:30 09/09/20 14:30 09/09/20 14:30 Oxygen Flow Rate (L/min) 3 Oxygen Delivery Method Nasal Cannula Weight: 89.04 kg Body Mass Index (BMI) 29.8 Finger Stick Blood Glucose 188 Intake and Output for Last 24 Hours 09/07/20 09/08/20 09/09/20 23:59 23:59 23:59 Intake Total 1140 / 1140 852.63 / 1032.63 675.53 / 675.53 Output Total 150 / 300 150 / 150 Balance 1140 / 1140 702.63 / 732.63 525.53 / 525.53 Laboratory Results 09/08/20 16:38: POC Glucose 317 H 09/08/20 21:32: POC Glucose 306 H 09/08/20 22:09: APTT 51.3 H 09/09/20 04:48: PT 16.4 H, INR 1.4 09/09/20 04:48: WBC 8.6, RBC 3.17 L, Hgb 8.8 L, Hct 27.8 L, MCV 87.7, MCH 27.8, MCHC 31.7 L, RDW Std Deviation 52.8 H, RDW Coeff of Yessi 16.5 H, Plt Count 185, MPV 10.5, Immature Gran % (Auto) 0.300, Neut % (Auto) 71.2 H, Lymph % (Auto) 16.5 L, [place] % (Auto) 9.8, Eos % (Auto) 1.9, Baso % (Auto) 0.3, Absolute Neuts (auto) 6.1, Absolute Lymphs (auto) 1.42, Nucleated RBC % 0 09/09/20 04:48: Sodium 129 L, Potassium 3.6, Chloride 92 L, Carbon Dioxide 30.0, Anion Gap 7, BUN 84 H, Creatinine 2.66 H, Estim Creat Clear Calc 21.79, Est GFR (MDRD) Af Amer 30 L, Est GFR (MDRD) Non-Af 25 L, BUN/Creatinine Ratio 31.6 H, Glucose 181 H, Calcium 8.7, Total Bilirubin 0.80, AST 27, ALT 107 H, Alkaline Phosphatase 76, Total Protein 6.5, Albumin 2.5 L, Globulin 4.0, Albumin/Globulin Ratio 0.6 L 09/09/20 04:48: APTT 83.8 H 09/09/20 05:51: POC Glucose 176 H 09/09/20 11:30: APTT 56.3 H 09/09/20 12:04: POC Glucose 192 H Current Medications Acetaminophen (Acetaminophen 325 Mg Tablet) 325 mg PO Q4H PRN PRN PRN Reason: Pain Score 1-10 Last Admin: 09/05/20 08:44 Dose: 325 mg Documented by: Al Hydroxide/Mg Hydroxide (Mag Hydrox/Al Hydrox/Simeth 30 Ml Udc) 30 ml PO Q4H PRN PRN PRN Reason: gi distress Last Admin: 09/08/20 01:08 Dose: 30 ml Documented by: Albuterol Sulfate (Albuterol 2.5 Mg/3 Ml Vial.Neb.) 2.5 mg INHALATION Q4H PRN PRN Reason: Wheezing Last Admin: 09/08/20 23:52 Dose: 2.5 mg Documented by: Albuterol/Ipratropium (Ipratropium/Albuterol Sulfate 3 Ml Ampul.Neb) 3 ml INHALATION Q6H.RT [facility] Last Admin: 09/09/20 13:17 Dose: 3 ml Documented by: Allopurinol (Allopurinol 100 Mg Tablet) 100 mg PO DAILYCM [facility] Last Admin: 09/08/20 09:08 Dose: 100 mg Documented by: Amiodarone HCl (Amiodarone 200 Mg Tablet) 200 mg PO DAILY [facility] Last Admin: 09/09/20 08:20 Dose: 200 mg Documented by: Aspirin (Aspirin 81 Mg Tab.Chew) 81 mg PO DAILY@0800 [facility] Last Admin: 09/09/20 08:20 Dose: 81 mg Documented by: Atorvastatin Calcium (Atorvastatin Calcium 80 Mg Tablet) 80 mg PO QHS [facility] Last Admin: 09/08/20 21:37 Dose: 80 mg Documented by: Budesonide (Budesonide Respules 0.5 Mg/2 Ml Ampul.Neb.) 0.5 mg INHALATION BID.RT [facility] Last Admin: 09/09/20 07:30 Dose: 0.5 mg Documented by: Dextrose (Dextrose 50%-Water 25 Gm/50 Ml Disp.Syrin) 0 gm IV X1 PRN; Protocol PRN Reason: Hypoglycemia Docusate Sodium (Docusate Sodium 100 Mg Capsule) 100 mg PO BID [facility] Last Admin: 09/09/20 08:20 Dose: 100 mg Documented by: Finasteride (Finasteride 5 Mg Tablet) 5 mg PO DAILY [facility] Last Admin: 09/09/20 08:20 Dose: 5 mg Documented by: Glucagon (Glucagon 1 Mg/Ml Syringe) 1 mg IM .X1 PRN PRN Reason: Hypoglycemia Heparin Sodium (Porcine) (Heparin Injection (Vial) 5,000 Unit/Ml Vial) 0 unit IV UD PRN; Protocol PRN Reason: dose adjustment Last Admin: 09/08/20 22:39 Dose: 1,000 unit Documented by: Hydrocortisone Acetate (Hydrocortisone 25 Mg Suppository) 25 mg RC TID PRN PRN PRN Reason: Rectal Discomfort Last Admin: 09/09/20 05:45 Dose: 25 mg Documented by: Sodium Chloride () 250 mls @ 15 mls/hr IV .[id number] PRN PRN Reason: Saline Flush Last Infusion: 09/08/20 18:56 Dose: Infused Documented by: Sodium Chloride () 250 mls @ 15 mls/hr IV .[id number] PRN PRN Reason: Additional IVPB Infusion Heparin Sodium/Dextrose () 25,000 units in 250 mls @ 12 mls/hr IV .[id number] [facility]; Protocol Last Titration: 09/09/20 05:30 Dose: 1,000 units/hr, 10 mls/hr Documented by: Insulin Glargine (Insulin Glargine 100 Units/Ml Pen) 18 units SC QHS [facility] Last Admin: 09/08/20 21:34 Dose: 18 units Documented by: Insulin Human Lispro (Insulin Lispro 100 Unit/Ml Insuln.Pen) 0 unit SC ACHS [facility]; Protocol Last Admin: 09/09/20 12:05 Dose: 1 units Documented by: Levothyroxine Sodium (Levothyroxine 50 Mcg Tablet) 50 mcg PO DAILY@0600 [facility] Last Admin: 09/09/20 05:45 Dose: 50 mcg Documented by: Magnesium Hydroxide (Magnesium Hydroxide 30 Ml Udc) 30 ml PO DAILY PRN PRN PRN Reason: CONSTIPATION Metoprolol Succinate (Metoprolol(Xl)Succ 50 Mg Tablet) 50 mg PO DAILY [facility] Last Admin: 09/09/20 08:21 Dose: 50 mg Documented by: Nitroglycerin (Nitroglycerin (Inpatient Use) 0.4 Mg Tab.Subl) 0.4 mg SUBLINGUAL Q5M PRN PRN Reason: Angina Nystatin (Nystatin Ointment) 1 applic TOPICAL BID [facility]; Protocol Last Admin: 09/09/20 14:32 Dose: 1 applicatio Documented by: Oxycodone HCl (Oxycodone 5 Mg Tablet) 5 mg PO Q4H PRN PRN PRN Reason: Pain Score 1-10 Last Admin: 09/01/20 22:17 Dose: 5 mg Documented by: Pantoprazole Sodium (Pantoprazole Sodium 20 Mg Tablet) 20 mg PO BID [facility] Last Admin: 09/09/20 08:20 Dose: 20 mg Documented by: Senna (Senna Tablet) 1 tablet PO DAILY [facility] Last Admin: 09/09/20 08:24 Dose: 1 tablet Documented by: Sodium Chloride (0.9% Saline Lock 10 Ml Syringe) 10 - 40 ml IV UD PRN PRN Reason: SALINE FLUSH Last Admin: 09/09/20 10:27 Dose: 10 ml Documented by: Tamsulosin HCl (Tamsulosin Hcl 0.4 Mg Capsule) 0.8 mg PO DAILY@0830 [facility] Last Admin: 09/09/20 08:20 Dose: 0.8 mg Documented by: Warfarin Sodium (Warfarin 2.5 Mg Tablet) 2.5 mg PO DAILY@1700 [facility] STROKE Vital Signs/Narrative: Vital Signs Temp Pulse Resp BP Pulse Ox 09/09/20 14:30 97.3 F L 70 18 103/54 L 95 09/09/20 13:41 71 21 H Medical Necessity - Tobacco Use Smoking Status: Former smoker Tobacco Use: Non-smoker Assessment/Plan All Active Problems Hyperkalemia (Acute) GI bleed (Resolved) Supratherapeutic INR (Acute) Gross hematuria (Acute) Anticoagulation goal of INR 2.5 to 3.5 (Acute) Facial droop (Resolved) 1. Acute on chronic heart failure with reduced EF, EF of 30%, improved Given another Lasix 40 mg IV x1, continue with CHF protocol with fluid restriction, AL wraps to lower extremities Repeat renal function in a.m. 2. Acute on chronic hypoxic respiratory failure secondary to acute CHF/history of COPD On 3 L of oxygen, will continue to monitor 3. Gross hematuria for cystoscopy with evacuation of blood clots, TURP with a bipolar rectal scope on 09/04/20 Urology following 4. Acute blood loss anemia secondary to hematuria, status post 3 units of packed RBCs, H&H has been stable We will transfuse when hemoglobin is less than 7 5. Mechanical aortic heart valve/chronic atrial fibrillation/CAD status post ashlee nt in March 2020/hypertension Status post FFP's for supratherapeutic INR 4.1 on 09/01/20 INR is currently 1.4, continue on heparin drip, aspirin, statin, metoprolol, warfarin 2.5 mg daily for now, repeat INR in a.m. 6. Type II DM, sugars are uncontrolled, will increase Lantus to 18 units daily, continue with insulin sliding scale 7. Hypothyroidism, continue on synthroid 8. HUONG on CKD stage IV, baseline creatinine 1.3-1.6 Creatinine currently 2.66, nephrology consulted, following Repeat blood work in a.m. 9. DVT prophylaxis?on heparin drip and coumadin Inpatient E&M: 51506 Subs Hosp L3
[2020-09-09] MEDS: HEPARIN/D5w 25,000 UNITS 25,000 UNITS/250 ML IV.SOLN. 10 UNITS IV (16:57)
[2020-09-09 17:35] LABS: Bedside Glucose 243 mg/dL (70-110)
[2020-09-09 18:39] LABS: Partial Thromboplast Time 56.4 Seconds (24.1-36.2)
[2020-09-09] MEDS: Atorvastatin Calcium 80 MG Tablet PO (21:02)
[2020-09-09 21:30] LABS: Bedside Glucose 234 mg/dL (70-110)
[2020-09-10] VITALS (16 sets, daily range): BP systolic 98–117; BP diastolic 55–66; PULSE 50–101; RESP 16–24; TEMP 36.3–36.6; O2SAT 87–99
[2020-09-10] MEDS: Ipratropium/Albuterol Sulfate 3 ML AMPUL.NEB INHALATION ×4 (02:23→19:27)
[2020-09-10] MEDS: Levothyroxine 50 MCG Tablet PO (05:50)
[2020-09-10] MEDS: Insulin Lispro 100 UNIT/ML INSULN.PEN SC ×4 (05:50→20:48)
[2020-09-10 06:00] LABS: Bedside Glucose 202 mg/dL (70-110)
[2020-09-10 06:08] LABS: Absolute Lymphocyte Count 1.32 X10^3/uL (0.83-4.51); Absolute Neutrophil Count 6.2 X10^3/uL (2.0-7.7); Basophil# 0.04 X10^3/uL; Basophil% 0.5 % (0-1); Eosinophil# 0.11 X10^3/uL; Eosinophils% 1.3 % (0-5); Hematocrit 28.5 % (40-54); Hemoglobin 8.6 g/dL (13.0-16.5); Lymphocyte # 1.32 X10^3/ul (4.0); Lymphocyte % 15.5 % (19-41); Mean Corp Hgb Conc 30.2 g/dL (32-36); Mean Corpuscular Volume 89.3 fL (80-94); Mean Platelet Vol. 10.5 fl (6.2-12.0); Monocyte# 0.82 X10^3/uL; Monocyte% 9.7 % (0-10); NRBC Flagged by Analyzer 0 % (0-5); Neutrophil # 6.17 X10^3/uL (2.7-7.7); Neutrophil % 72.6 % (47-70); Platelet Count 197 K/mm3 (150-450); RBC Distribution Width CV 16.7 % (11.6-14.6); RBC Distribution Width SD 54.4 fl (35.1-43.9); Red Blood Count 3.19 M/mm3 (4.6-6.2); White Blood Count 8.5 K/mm3 (4.4-11.0)
[2020-09-10 06:17] LABS: Partial Thromboplast Time 75.7 Seconds (24.1-36.2)
[2020-09-10 06:36] LABS: ALB/GLOB Ratio 0.6 RATIO (0.9-2.4); AST(SGOT) 24 U/L (15-37); Alanine Aminotransfer ALT/SGPT 89 U/L (16-61); Albumin, Serum 2.7 g/dL (3.2-5.0); Alkaline Phosphatase 84 U/L (45-117); Anion Gap 6 (5-15); BUN 78 mg/dL (7-18); BUN/Creat Ratio 29.3 RATIO (10-20); Calcium,Total 9.1 mg/dL (8.5-10.1); Chloride 94 mmol/L (98-107); Creatinine, Serum 2.66 mg/dL (0.70-1.30); EST Glomerular Filtration Rate 25 mL/min (>60); Est Glom Filt Rate - Afr Amer 30 mL/min (>60); Estimated Creatinine Clearance 21.79 ml/min; Globulin 4.2 g/dL (2.2-4.2); Glucose 198 mg/dL (74-106); Potassium 3.8 mmol/L (3.5-5.1); Protein, Total 6.9 g/dL (6.4-8.2); Sodium Level 130 mmol/L (136-145)
--- NOTE | 2020-09-10 07:26 | PCM.PN.BLA ---
Progress Note Patient is clinically stable with no changes he is incontinent but this is not unexpected. Once he is stable by medical team he can be discharged. STROKE Vital Signs/Narrative: Vital Signs Pulse 09/10/20 04:00 50 L
[2020-09-10] MEDS: Budesonide Respules 0.5 MG/2 ML AMPUL.NEB. INHALATION ×2 (07:39→19:27)
[2020-09-10] MEDS: Furosemide 40 MG/4 ML Vial IV ×2 (08:47→17:03)
[2020-09-10] MEDS: Aspirin 81 MG TAB.CHEW PO (08:47)
[2020-09-10] MEDS: Tamsulosin HCl 0.4 MG Capsule 0.8 MG PO (08:47)
[2020-09-10] MEDS: Amiodarone 200 MG Tablet PO (08:48)
[2020-09-10] MEDS: Finasteride 5 MG Tablet PO (08:48)
[2020-09-10] MEDS: Docusate Sodium 100 MG Capsule PO ×2 (08:48→20:52)
[2020-09-10] MEDS: Metoprolol(XL)Succ 50 MG Tablet PO (08:49)
[2020-09-10] MEDS: Senna Tablet 1 TABLET PO (08:49)
[2020-09-10] MEDS: Nystatin Ointment 1 APPLIC TOPICAL ×2 (08:49→20:52)
[2020-09-10] MEDS: Pantoprazole Sodium 20 MG Tablet PO ×2 (08:49→20:52)
[2020-09-10] MEDS: Hydrocortisone 25 MG Suppository RC (08:50)
[2020-09-10 09:04] LABS: International Normalized Ratio 1.4; Prothrombin Time (Protime)PT. 16.9 SECONDS (11.7-14.9)
--- NOTE | 2020-09-10 09:35 | RAD_ITS ---
STUDY: X-RAY CHEST REASON FOR EXAM: Male, 80 years old. SOB, hemoptysis TECHNIQUE: Single AP portable view of the chest. COMPARISON: Comparison is made with prior study dated 09/08/2020. FINDINGS: EKG electrodes are seen. Persistent CHF with the blunting of both costophrenic angles and left basilar atelectasis. There has been improvement as compared to prior study. There is moderate cardiac enlargement. Prior aortic valve replacement. Normal mediastinum and roberth. Normal visualized pulmonary arteries. There is atherosclerotic tortuosity of the aortic arch and descending thoracic aorta. There are diffuse degenerative changes of the visualized thoracic spine. Normal visualized ribs, clavicles, and shoulders. There is no demonstrated abnormality of the visualized soft tissue structures of the upper abdomen. RAD/Chest 1 View (Portable) IMPRESSION: Persistent CHF although there has been improvement as compared to prior study. Electronically Signed: Cyrus Saeed MD at 13:42 EST , Service support ,
--- NOTE | 2020-09-10 09:37 | PCM.PN.REN ---
Patient Problems: Active and Suspected Problems Supratherapeutic INR (Acute) Gross hematuria (Acute) Subjective: hemoptysis, wheezing today. Edema persists. Short of breath, ordered lasix iv bid. - Physical Exam Vitals/I&O's: Vital Signs Temp Pulse Resp BP Pulse Ox 97.9 F 101 H 20 H 117/65 87 09/10/20 02:30 09/10/20 08:49 09/10/20 07:47 09/10/20 08:49 09/10/20 07:40 Oxygen Flow Rate (L/min) 3 Oxygen Delivery Method Nasal Cannula Weight: 89.04 kg Body Mass Index (BMI) 29.8 Finger Stick Blood Glucose 188 Intake and Output for Last 24 Hours 09/08/20 09/09/20 09/10/20 23:59 23:59 23:59 Intake Total 852.63 / 1032.63 1149.00 / 1329.00 360 / 360 Output Total 150 / 300 375 / 525 300 / 300 Balance 702.63 / 732.63 774.00 / 804.00 60 / 60 General: Alert, Oriented x3, Cooperative, - - mild tachypnea Lungs: Wheezes Cardiovascular: Irregular Rate - afib Abdomen: Bowel Sounds Present, Soft, Non Tender, Non-Distended, Obese Extremities: Edema Psych/Mental Status: Alert and oriented to time, place, person, mood and affect Laboratory Results 09/09/20 11:30: APTT 56.3 H 09/09/20 12:04: POC Glucose 192 H 09/09/20 17:00: POC Glucose 243 H 09/09/20 17:40: APTT 56.4 H 09/09/20 21:00: POC Glucose 234 H 09/10/20 05:49: POC Glucose 202 H 09/10/20 06:00: WBC 8.5, RBC 3.19 L, Hgb 8.6 L, Hct 28.5 L, MCV 89.3, MCH 27.0, MCHC 30.2 L, RDW Std Deviation 54.4 H, RDW Coeff of Yessi 16.7 H, Plt Count 197, MPV 10.5, Immature Gran % (Auto) 0.400, Neut % (Auto) 72.6 H, Lymph % (Auto) 15.5 L, Woodruff % (Auto) 9.7, Eos % (Auto) 1.3, Baso % (Auto) 0.5, Absolute Neuts (auto) 6.2, Absolute Lymphs (auto) 1.32, Nucleated RBC % 0 09/10/20 06:00: Sodium 130 L, Potassium 3.8, Chloride 94 L, Carbon Dioxide 30.0, Anion Gap 6, BUN 78 H, Creatinine 2.66 H, Estim Creat Clear Calc 21.79, Est GFR (MDRD) Af Amer 30 L, Est GFR (MDRD) Non-Af 25 L, BUN/Creatinine Ratio 29.3 H, Glucose 198 H, Calcium 9.1, Total Bilirubin 0.90, AST 24, ALT 89 H, Alkaline Phosphatase 84, Total Protein 6.9, Albumin 2.7 L, Globulin 4.2, Albumin/Globulin Ratio 0.6 L 09/10/20 06:00: APTT 75.7 H 09/10/20 06:00: PT 16.9 H, INR 1.4 Current Medications Acetaminophen (Acetaminophen 325 Mg Tablet) 325 mg PO Q4H PRN PRN PRN Reason: Pain Score 1-10 Last Admin: 09/05/20 08:44 Dose: 325 mg Documented by: Al Hydroxide/Mg Hydroxide (Mag Hydrox/Al Hydrox/Simeth 30 Ml Udc) 30 ml PO Q4H PRN PRN PRN Reason: gi distress Last Admin: 09/08/20 01:08 Dose: 30 ml Documented by: Albuterol Sulfate (Albuterol 2.5 Mg/3 Ml Vial.Neb.) 2.5 mg INHALATION Q4H PRN PRN Reason: Wheezing Last Admin: 09/08/20 23:52 Dose: 2.5 mg Documented by: Albuterol/Ipratropium (Ipratropium/Albuterol Sulfate 3 Ml Ampul.Neb) 3 ml INHALATION Q6H.RT [facility] Last Admin: 09/10/20 07:39 Dose: 3 ml Documented by: Allopurinol (Allopurinol 100 Mg Tablet) [facility] Last Admin: 09/08/20 09:08 Dose: 100 mg Documented by: Amiodarone HCl (Amiodarone 200 Mg Tablet) 200 mg PO DAILY [facility] Last Admin: 09/10/20 08:48 Dose: 200 mg Documented by: Aspirin (Aspirin 81 Mg Tab.Chew) 81 mg PO DAILY@0800 [facility] Last Admin: 09/10/20 08:47 Dose: 81 mg Documented by: Atorvastatin Calcium (Atorvastatin Calcium 80 Mg Tablet) 80 mg PO QHS [facility] Last Admin: 09/09/20 21:02 Dose: 80 mg Documented by: Budesonide (Budesonide Respules 0.5 Mg/2 Ml Ampul.Neb.) 0.5 mg INHALATION BID.RT [facility] Last Admin: 09/10/20 07:39 Dose: 0.5 mg Documented by: Dextrose (Dextrose 50%-Water 25 Gm/50 Ml Disp.Syrin) 0 gm IV X1 PRN; Protocol PRN Reason: Hypoglycemia Docusate Sodium (Docusate Sodium 100 Mg Capsule) 100 mg PO BID [facility] Last Admin: 09/10/20 08:48 Dose: 100 mg Documented by: Finasteride (Finasteride 5 Mg Tablet) 5 mg PO DAILY [facility] Last Admin: 09/10/20 08:48 Dose: 5 mg Documented by: Furosemide (Furosemide 40 Mg/4 Ml Vial) 40 mg IV BID@1000,1800 [facility] Last Admin: 09/10/20 08:47 Dose: 40 mg Documented by: Glucagon (Glucagon 1 Mg/Ml Syringe) 1 mg IM .X1 PRN PRN Reason: Hypoglycemia Hydrocortisone Acetate (Hydrocortisone 25 Mg Suppository) 25 mg RC TID PRN PRN PRN Reason: Rectal Discomfort Last Admin: 09/10/20 08:50 Dose: 25 mg Documented by: Sodium Chloride () 250 mls @ 15 mls/hr IV .[id number] PRN PRN Reason: Saline Flush Last Infusion: 09/08/20 18:56 Dose: Infused Documented by: Sodium Chloride () 250 mls @ 15 mls/hr IV .[id number] PRN PRN Reason: Additional IVPB Infusion Insulin Glargine (Insulin Glargine 100 Units/Ml Pen) 18 units SC QHS [facility] Last Admin: 09/09/20 21:01 Dose: 18 units Documented by: Insulin Human Lispro (Insulin Lispro 100 Unit/Ml Insuln.Pen) 0 unit SC ACHS [facility]; Protocol Last Admin: 09/10/20 05:50 Dose: 1 units Documented by: Levothyroxine Sodium (Levothyroxine 50 Mcg Tablet) 50 mcg PO DAILY@0600 [facility] Last Admin: 09/10/20 05:50 Dose: 50 mcg Documented by: Magnesium Hydroxide (Magnesium Hydroxide 30 Ml Udc) 30 ml PO DAILY PRN PRN PRN Reason: CONSTIPATION Metoprolol Succinate (Metoprolol(Xl)Succ 50 Mg Tablet) 50 mg PO DAILY [facility] Last Admin: 09/10/20 08:49 Dose: 50 mg Documented by: Nitroglycerin (Nitroglycerin (Inpatient Use) 0.4 Mg Tab.Subl) 0.4 mg SUBLINGUAL Q5M PRN PRN Reason: Angina Nystatin (Nystatin Ointment) 1 applic TOPICAL BID [facility]; Protocol Last Admin: 09/10/20 08:49 Dose: 1 applicatio Documented by: Oxycodone HCl (Oxycodone 5 Mg Tablet) 5 mg PO Q4H PRN PRN PRN Reason: Pain Score 1-10 Last Admin: 09/01/20 22:17 Dose: 5 mg Documented by: Pantoprazole Sodium (Pantoprazole Sodium 20 Mg Tablet) 20 mg PO BID [facility] Last Admin: 09/10/20 08:49 Dose: 20 mg Documented by: Senna (Senna Tablet) 1 tablet PO DAILY [facility] Last Admin: 09/10/20 08:49 Dose: 1 tablet Documented by: Sodium Chloride (0.9% Saline Lock 10 Ml Syringe) 10 - 40 ml IV UD PRN PRN Reason: SALINE FLUSH Last Admin: 09/09/20 10:27 Dose: 10 ml Documented by: Tamsulosin HCl (Tamsulosin Hcl 0.4 Mg Capsule) 0.8 mg PO DAILY@0830 [facility] Last Admin: 09/10/20 08:47 Dose: 0.8 mg Documented by: Warfarin Sodium (Warfarin 2.5 Mg Tablet) 2.5 mg PO DAILY@1700 [facility] Last Admin: 09/09/20 17:02 Dose: 2.5 mg Documented by: Medical Necessity - Tobacco Use Smoking Status: Former smoker Tobacco Use: Non-smoker Assessment/Plan All Active Problems Hyperkalemia (Acute) GI bleed (Resolved) Supratherapeutic INR (Acute) Gross hematuria (Acute) Anticoagulation goal of INR 2.5 to 3.5 (Acute) Facial droop (Resolved) 1. Acute on CKD baseline creatinine 1.3 to 1.6. Creatinine stable 2. Hemoptysis on heparin drip primary care mgmt 3. Hyponatremia from volume expansion. LAsix bid 4. mechanical AVR on anticoagulation on heparin drip 5. 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 Schizoaffective disorder DW nursing staff
--- NOTE | 2020-09-10 10:56 | NURSING ---
0900-pt with fifty cent sized bright red sputum/jelly like sputum noted in tissue. dr. mata and dr. dumont in to see and order to dc heparin and repeat cxr.
--- NOTE | 2020-09-10 11:00 | NURSING ---
0935 heparin gtt dc'd and pt up in chair after getting cxr.
[2020-09-10] MEDS: HEPARIN/D5w 25,000 UNITS 25,000 UNITS/250 ML IV.SOLN. 8 UNITS IV (12:00)
[2020-09-10 12:10] LABS: Bedside Glucose 216 mg/dL (70-110)
--- NOTE | 2020-09-10 13:39 | CASEMGMT ---
DARRON faxed updates to [facility]. Naomi RAMIREZ DIRECTOR [employer]
--- NOTE | 2020-09-10 15:23 | CT_ITS ---
STUDY: CT CHEST WITHOUT CONTRAST REASON FOR EXAM: Male, 80 years old. Recurrent hemoptysis. History of ME, atrial fibrillation, CHF, coronary artery disease and COPD. RADIATION DOSAGE (If Supplied By Facility): CTDIvol = ( 16.26 ) mGy, DLP = ( 511.92 ) mGycm TECHNIQUE: Transaxial imaging was performed without the administration of intravenous contrast material. Multiplanar coronal and sagittal images were reformatted. Individualized dose optimization techniques were used for this CT. COMPARISON: Chest, 09/10/2020. CT of the chest, 11/05/2014. FINDINGS: There is diffuse patchy groundglass infiltrates throughout both lungs and 8. Hilar distribution. No focal mass or consolidation. There are moderate bilateral pleural effusions with subsegmental atelectasis involving both lower lobes. The heart is enlarged. Normal pericardium. Marked coronary artery calcifications. There is an aortic valve replacement. Mild mediastinal lymphadenopathy. Normal hilar regions. There is mild prominence of the pulmonary hilar arteries and peripheral pulmonary arteries, consistent with congestive heart failure (CHF). There is atherosclerotic calcification of the aortic arch with tortuosity and elongation of the aortic arch and descending thoracic aorta. There are multi-level degenerative changes of the thoracic spine. Calcified granulomata are seen in the spleen. The upper abdomen is otherwise unremarkable. CT/Chest without Contrast IMPRESSION: 1. Findings consistent with CHF.. There are moderate bilateral pleural effusions and atelectasis. 2. Cardiomegaly with coronary artery calcifications and aortic valve replacement. 3. Mediastinal lymphadenopathy. Electronically Signed: Feng Spencer DO at 16:55 EST Tel [phone], Service support ,
--- NOTE | 2020-09-10 16:39 | CON.PCM_ITS ---
Problem List (1) Hyperkalemia Status: Acute (2) Dilated cardiomyopathy Status: Chronic (3) Obstructive sleep apnea Status: Chronic (4) Cerebrovascular disease Status: Chronic (5) Schizoaffective disorder Status: Chronic (6) Supratherapeutic INR Status: Acute (7) CAD (coronary artery disease) Status: Chronic (8) mechanical prosthetic aortic valve replacement Status: Chronic (9) Hyperlipidemia Status: Chronic (10) DM type 2 (diabetes mellitus, type 2) Status: Chronic (11) Chronic obstructive lung disease Status: Chronic Reason for Consult Date of Consultation: 09/10/20 Reason for Consultation: Hemoptysis History of Present Illness: The patient is a 80 year old M, with past medical history listed below, who presented to [facility] on 09/01/2020 secondary to gross hematuria. Patient reportedly had the onset of hematuria on the day of presentation. Patient reportedly had had multiple clots noted along with supra pubic abdominal pain. Patient is on Coumadin therapy at baseline secondary to a history of an aortic valve replacement. Patient reportedly was seen for hemoptysis the month prior and his INR was on the upper limit of measurable. Patient was transferred to [facility] and reportedly his hemoptysis resolved spontaneously with improvement in INR. Patient had not reported any fevers, chills, nausea, vomiting or diarrhea prior to presentation. In the ER, patient was noted to have a white blood cell count of 8.5, hemoglobin of 8.6 and platelets of 339. INR was elevated at 4.1 and BUN/creatinine were 59 and 2.81. Patient was placed on continuous bladder irrigation and evaluated by urology. Over the course of patient's hospitalization, patient has continued to have multiple interventions secondary to concerns for hematuria and hemoptysis. Patient is currently on heparin with a PTT of 75 and an INR of 1.4. Renal function is relatively stable with a BUN of 78 and 2.66. Patient reportedly has had 3 episodes of hemoptysis over the last 24 hours expressing between a nickel and quarter size maroon to bright red blood. Patient is not reporting any epistaxis, but has been using nasal cannula oxygen. Patient denies any current chest pain, nominal pain, nausea or vomiting. Patient reports he does not use supplemental oxygen at baseline. 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 Review of systems otherwise negative from a constitutional, HEENT, respiratory, cardiovascular, GI, genitourinary, musculoskeletal, skin, neurologic, psychiatric and hematologic system unless stated above. Past Medical History Past Medical History (Chronic Problems): Chronic Problems Dilated cardiomyopathy (Chronic) Obstructive sleep apnea (Chronic) Cerebrovascular disease (Chronic) Schizoaffective disorder (Chronic) Acute cerebrovascular accident (Chronic) CAD (coronary artery disease) (Chronic) mechanical prosthetic aortic valve replacement (Chronic) Hyperlipidemia (Chronic) DM type 2 (diabetes mellitus, type 2) (Chronic) Chronic obstructive lung disease (Chronic) Allergies ticagrelor [From Brilinta] Allergy (Verified 09/01/20 06:08) WEAKNESS Home Medications: Ambulatory Orders Medication Instructions Recorded Albuterol Aerosols [Ventolin 2.5 mg INHALATION 4X/DAY 06/05/20 Aerosols] Allopurinol [Zyloprim] 100 mg PO DAILYCM 06/05/20 Amiodarone HCl 200 mg PO DAILY 06/05/20 Atorvastatin Calcium [Lipitor] 80 mg PO QHS 06/05/20 Budesonide Aerosol [Pulmicort 0.5 mg INHALATION BID 06/05/20 Aerosol] Bumetanide 2.5 mg PO BID 06/05/20 Clopidogrel Bisulfate [Plavix] 75 mg PO DAILY 06/05/20 Divalproex Sodium 500 mg PO BID 06/05/20 Fluticasone 110 Mcg [Flovent (SP)] 1 puff INHALATION BID 06/05/20 Insulin Glargine,Hum.rec.anlog 14 unit SC QHS 06/05/20 [Basaglar Kwikpen U-100] Levothyroxine [Synthroid] 50 mcg PO DAILY 06/05/20 Metformin HCl [Glucophage] 500 mg PO BID 06/05/20 Metoprolol(XL)Succ [Toprol Xl 50 mg PO DAILY 06/05/20 (Beta Damir)] Omeprazole 20 mg PO BID 06/05/20 Oxybutynin [Ditropan] 5 mg PO DAILY 06/05/20 Potassium Chloride [Klor-Con] 20 meq PO DAILY 06/05/20 Quetiapine Fumarate [Seroquel] 100 mg PO BID 06/05/20 Acetaminophen [Tylenol Extra 1,000 mg PO Q8H PRN 08/22/20 Strength] Albuterol IH (ProAir) [Proair Hfa 1 puff INHALATION Q4H PRN PRN 08/22/20 (SP)Vent Pts] Aspirin [Aspirin, Baby] 81 mg PO DAILY@0800 08/22/20 Docusate Sodium 100 mg PO BID 08/22/20 Nitroglycerin SL (ED ONLY) 0.4 mg SUBLINGUAL PRN PRN 08/22/20 [Nitrostat] Senna [Senokot] 1 tab PO DAILY 08/22/20 Warfarin [Coumadin (PBKC)] 4.5 mg PO DAILY 08/22/20 Mag Hydrox/Aluminum Hyd/Simeth 30 ml PO Q4H PRN PRN 09/01/20 [Mag-Alum Hydroxide-Simeth Susp] Magnesium Hydroxide [Milk Of 30 ml PO DAILY PRN PRN 09/01/20 Magnesia] Spironolactone 25 mg PO DAILY 09/01/20 Surgical History: cholecystectomy, - - Bladder resection and aortic valve replacement Psychiatric History: Bipolar Lives: Alone Smoking Status: Former smoker Tobacco Use: Non-smoker Alcohol: None Drugs: None - *Family History Maternal History Items: Unknown - He does not know any biological history of either parent as he was raised in an orphanage Review of Systems Comment: See HPI Patient Problems: Active and Suspected Problems Supratherapeutic INR (Acute) Gross hematuria (Acute) Objective: All imaging was personally reviewed. Did order a CT scan after evaluation. The images are available for review and show bilateral pleural effusions with calcinosis of the airways. Patient also has some groundglass opacities with bronchial thickening noted. No pulmonary function tests are available for review. Echocardiogram shows an EF of 30% with moderately severe left global ventricular systolic dysfunction. RV is reportedly normal, but pulmonary artery pressures are 44 mmHg. Aortic valve gradient of 20 mmHg with a normal-appearing mechanical aortic valve apparatus. Patient reportedly has had a reduction in left ventricular function compared to previous echo. - Physical Exam Vitals/I&O's: Vital Signs Temp Pulse Resp BP Pulse Ox 36.6 C 72 18 105/62 95 09/10/20 15:24 09/10/20 15:24 09/10/20 15:24 09/10/20 15:24 09/10/20 15:24 Oxygen Flow Rate (L/min) 3 Oxygen Delivery Method Nasal Cannula Weight: 89.04 kg Body Mass Index (BMI) 29.8 Finger Stick Blood Glucose 188 Intake and Output for Last 24 Hours 09/08/20 09/09/20 09/10/20 23:59 23:59 23:59 Intake Total 852.63 / 1032.63 1149.00 / 1329.00 443.67 / 443.67 Output Total 150 / 300 375 / 525 300 / 300 Balance 702.63 / 732.63 774.00 / 804.00 143.67 / 143.67 General: Alert, Oriented x3, Cooperative, No apparent distress, - - Appears older than stated age HEENT: Atraumatic, PERRLA, EOMI, Normocephalic, - - Nasal cannula in place. No blood noted at the nares Oral: Moist Mucosa, No Gingival or Mucosal Lesions/ Ulcerations, - - Some blood noted on the posterior pharynx Neck: Supple, No Nodes, Trachea Midline, JVD, Right Lungs: No rhonchi, Diminished - Bilateral bases, Wheezes, - - Dullness to percussion posteriorly Cardiovascular: Regular rate, Regular Rhythm, Normal S1, Normal S2, No murmurs, No rub noted, No Gallop, - - Mechanical heart sound noted Abdomen: Bowel Sounds Present, Soft, Non Tender, Non-Distended Extremities: No cyanosis, Clubbing - Stage II, Edema - Bilateral lower extremities Skin: - - Her extremities are wrapped and unable to be assessed Musculoskeletal: No Tenderness to Palpation of Joints or Extremities Lymphatic: No Cervical, Supraclavicular, or Inguinal Adenopathy Neurological: Cranial nerves II-XII grossly intact, Neuro grossly intact, Motor Exam 5/5 strength throughout Psych/Mental Status: Alert and oriented to time, place, person, mood and affect Laboratory Results 09/09/20 17:00: POC Glucose 243 H 09/09/20 17:40: APTT 56.4 H 09/09/20 21:00: POC Glucose 234 H 09/10/20 05:49: POC Glucose 202 H 09/10/20 06:00: WBC 8.5, RBC 3.19 L, Hgb 8.6 L, Hct 28.5 L, MCV 89.3, MCH 27.0, MCHC 30.2 L, RDW Std Deviation 54.4 H, RDW Coeff of Yessi 16.7 H, Plt Count 197, MPV 10.5, Immature Gran % (Auto) 0.400, Neut % (Auto) 72.6 H, Lymph % (Auto) 15.5 L, Pine % (Auto) 9.7, Eos % (Auto) 1.3, Baso % (Auto) 0.5, Absolute Neuts (auto) 6.2, Absolute Lymphs (auto) 1.32, Nucleated RBC % 0 09/10/20 06:00: Sodium 130 L, Potassium 3.8, Chloride 94 L, Carbon Dioxide 30.0, Anion Gap 6, BUN 78 H, Creatinine 2.66 H, Estim Creat Clear Calc 21.79, Est GFR (MDRD) Af Amer 30 L, Est GFR (MDRD) Non-Af 25 L, BUN/Creatinine Ratio 29.3 H, Glucose 198 H, Calcium 9.1, Total Bilirubin 0.90, AST 24, ALT 89 H, Alkaline Phosphatase 84, Total Protein 6.9, Albumin 2.7 L, Globulin 4.2, Albumin/Globulin Ratio 0.6 L 09/10/20 06:00: APTT 75.7 H 09/10/20 06:00: PT 16.9 H, INR 1.4 09/10/20 11:54: POC Glucose 216 H Current Medications Acetaminophen (Acetaminophen 325 Mg Tablet) 325 mg PO Q4H PRN PRN PRN Reason: Pain Score 1-10 Last Admin: 09/05/20 08:44 Dose: 325 mg Documented by: Al Hydroxide/Mg Hydroxide (Mag Hydrox/Al Hydrox/Simeth 30 Ml Udc) 30 ml PO Q4H PRN PRN PRN Reason: gi distress Last Admin: 09/08/20 01:08 Dose: 30 ml Documented by: Albuterol Sulfate (Albuterol 2.5 Mg/3 Ml Vial.Neb.) 2.5 mg INHALATION Q4H PRN PRN Reason: Wheezing Last Admin: 09/08/20 23:52 Dose: 2.5 mg Documented by: Albuterol/Ipratropium (Ipratropium/Albuterol Sulfate 3 Ml Ampul.Neb) 3 ml INHALATION Q6H.RT EDD Last Admin: 09/10/20 13:35 Dose: 3 ml Documented by: Allopurinol (Allopurinol 100 Mg Tablet) 100 mg PO DAILYCM [facility] Last Admin: 09/08/20 09:08 Dose: 100 mg Documented by: Amiodarone HCl (Amiodarone 200 Mg Tablet) 200 mg PO DAILY [facility] Last Admin: 09/10/20 08:48 Dose: 200 mg Documented by: Aspirin (Aspirin 81 Mg Tab.Chew) 81 mg PO DAILY@0800 [facility] Last Admin: 09/10/20 08:47 Dose: 81 mg Documented by: Atorvastatin Calcium (Atorvastatin Calcium 80 Mg Tablet) 80 mg PO QHS [facility] Last Admin: 09/09/20 21:02 Dose: 80 mg Documented by: Budesonide (Budesonide Respules 0.5 Mg/2 Ml Ampul.Neb.) 0.5 mg INHALATION BID.RT [facility] Last Admin: 09/10/20 07:39 Dose: 0.5 mg Documented by: Dextrose (Dextrose 50%-Water 25 Gm/50 Ml Disp.Syrin) 0 gm IV X1 PRN; Protocol PRN Reason: Hypoglycemia Docusate Sodium (Docusate Sodium 100 Mg Capsule) 100 mg PO BID [facility] Last Admin: 09/10/20 08:48 Dose: 100 mg Documented by: Finasteride (Finasteride 5 Mg Tablet) 5 mg PO DAILY [facility] Last Admin: 09/10/20 08:48 Dose: 5 mg Documented by: Furosemide (Furosemide 40 Mg/4 Ml Vial) 40 mg IV BID@1000,1800 [facility] Last Admin: 09/10/20 08:47 Dose: 40 mg Documented by: Glucagon (Glucagon 1 Mg/Ml Syringe) 1 mg IM .X1 PRN PRN Reason: Hypoglycemia Heparin Sodium (Porcine) (Heparin Injection (Vial) 5,000 Unit/Ml Vial) 0 unit IV UD PRN; Protocol PRN Reason: dose adjustment Hydrocortisone Acetate (Hydrocortisone 25 Mg Suppository) 25 mg RC TID PRN PRN PRN Reason: Rectal Discomfort Last Admin: 09/10/20 08:50 Dose: 25 mg Documented by: Sodium Chloride () 250 mls @ 15 mls/hr IV .[id number] PRN PRN Reason: Saline Flush Last Infusion: 09/08/20 18:56 Dose: Infused Documented by: Sodium Chloride () 250 mls @ 15 mls/hr IV .[id number] PRN PRN Reason: Additional IVPB Infusion Heparin Sodium/Dextrose () 25,000 units in 250 mls @ 8 mls/hr IV .[id number] [facility]; Protocol Last Admin: 09/10/20 12:00 Dose: 800 units/hr, 8 mls/hr Documented by: Insulin Glargine (Insulin Glargine 100 Units/Ml Pen) 18 units SC QHS [facility] Last Admin: 09/09/20 21:01 Dose: 18 units Documented by: Insulin Human Lispro (Insulin Lispro 100 Unit/Ml Insuln.Pen) 0 unit SC ACHS [facility]; Protocol Last Admin: 09/10/20 11:55 Dose: 1 units Documented by: Levothyroxine Sodium (Levothyroxine 50 Mcg Tablet) 50 mcg PO DAILY@0600 [facility] Last Admin: 09/10/20 05:50 Dose: 50 mcg Documented by: Magnesium Hydroxide (Magnesium Hydroxide 30 Ml Udc) 30 ml PO DAILY PRN PRN PRN Reason: CONSTIPATION Metoprolol Succinate (Metoprolol(Xl)Succ 50 Mg Tablet) 50 mg PO DAILY [facility] Last Admin: 09/10/20 08:49 Dose: 50 mg Documented by: Nitroglycerin (Nitroglycerin (Inpatient Use) 0.4 Mg Tab.Subl) 0.4 mg SUBLINGUAL Q5M PRN PRN Reason: Angina Nystatin (Nystatin Ointment) 1 applic TOPICAL BID [facility]; Protocol Last Admin: 09/10/20 08:49 Dose: 1 applicatio Documented by: Oxycodone HCl (Oxycodone 5 Mg Tablet) 5 mg PO Q4H PRN PRN PRN Reason: Pain Score 1-10 Last Admin: 09/01/20 22:17 Dose: 5 mg Documented by: Pantoprazole Sodium (Pantoprazole Sodium 20 Mg Tablet) 20 mg PO BID [facility] Last Admin: 09/10/20 08:49 Dose: 20 mg Documented by: Senna (Senna Tablet) 1 tablet PO DAILY [facility] Last Admin: 09/10/20 08:49 Dose: 1 tablet Documented by: Sodium Chloride (0.9% Saline Lock 10 Ml Syringe) 10 - 40 ml IV UD PRN PRN Reason: SALINE FLUSH Last Admin: 09/09/20 10:27 Dose: 10 ml Documented by: Tamsulosin HCl (Tamsulosin Hcl 0.4 Mg Capsule) 0.8 mg PO DAILY@0830 [facility] Last Admin: 09/10/20 08:47 Dose: 0.8 mg Documented by: Warfarin Sodium (Warfarin 5 Mg Tablet) 5 mg PO X1 ONE Stop: 09/10/20 17:01 Clinical Impression(s) from Imaging Studies Chest X-Ray 09/10/20 09:35 IMPRESSION: Persistent CHF although there has been improvement as compared to prior study. Electronically Signed: Cyrus Saeed MD at 13:42 EST , Service support , Assessment/Plan All Active Problems Hyperkalemia (Acute) GI bleed (Resolved) Supratherapeutic INR (Acute) Gross hematuria (Acute) Anticoagulation goal of INR 2.5 to 3.5 (Acute) Facial droop (Resolved) RECOMMENDATIONS: 1. Could consider thoracentesis (diagnostic and therapeutic) 2. Continue with diuresis as tolerated 3. Agree with heparin for anticoagulation for now 4. No indication from a pulmonary perspective for transfer to a tertiary center 5. Wean oxygen as tolerated. Monitor for epistaxis IMPRESSIONS: 1. Hemoptysis Unclear etiology. CT scan of the chest does show some calcinosis of the airways, likely secondary to chronic warfarin therapy. Patient also has some right hilar adenopathy and bilateral pleural effusions. Groundglass opacities may be secondary to volume overload. Patient does have some enlargement of the pulmonary artery and clubbing suggestive of chronic hypoxia. The most common cause of hemoptysis is typically epistaxis. Patient has some blood in the posterior pharynx, but this may be secondary to recent expectoration. Would continue with heparin drip for now. 2. Bilateral pleural effusion/acute hypoxic respiratory insufficiency Given congestive heart failure, clinical suspicion for transudate physiology. Unclear if this has been tapped previously. Could obtain a diagnostic and therapeutic thoracentesis prior to initiation of chronic anticoagulation if not done previously. Otherwise, patient is requiring only minimal nasal cannula oxygen at this time and would benefit from diuresis. If patient's renal function precludes further diuresis, thoracentesis would be indicated. 3. Acute blood loss anemia/mechanical heart valve/chronic A. fib/CAD/diabetes mellitus type 2/HUONG on CKD stage IV Complicates care, management, recovery and prognosis. Patient is having hemoptysis, but this would not account for patient's need for 3 units of packed red blood cells. Clinical suspicion patient has chronic hypoxia given clubbing on exam. Continue to monitor blood sugars closely. If renal function precludes continued diuresis, thoracentesis could be used to address hypoxemia. Inpatient E&M: 82370 Init Hosp L3
[2020-09-10 17:15] LABS: Bedside Glucose 227 mg/dL (70-110)
--- NOTE | 2020-09-10 18:18 | PCM.PN.HOSP ---
Patient Problems: Active and Suspected Problems Hyperkalemia (Acute) Supratherapeutic INR (Acute) Gross hematuria (Acute) Reason for Visit: Follow-up on gross hematuria/mechanical valve disease/acute on chronic CHF Subjective: Shunt was seen and examined. He had hemoptysis this morning. Continues to have pink-colored urine. He had difficulty breathing this morning, continued on Lasix 40 mg IV twice daily. Discussed adjustment of heparin drip with pharmacy; custom made heparin drip in place to assist with fluctuations in APTT Objective: Physical exam: General: Alert, Cooperative, No apparent distress, Well developed, Well nourished, on 3 L of oxygen HEENT: Atraumatic, PERRLA, EOMI, Normocephalic Oral: Moist Mucosa Neck: Supple, No JVD, Trachea Midline, Thyroid Normal Size and Texture Lungs: Clear to auscultation, Normal air movement, No rhonchi, No wheeze, No rales Cardiovascular: Normal S1, Normal S2, PMI Normal, Irregular Rate, No rub noted, No Gallop, - - Mechanical click noted at the apex Abdomen: Bowel Sounds Present, Soft, Non Tender, Non-Distended Extremities: No clubbing, No cyanosis, No edema, Capillary Refill Less than 3 Seconds Skin: No rashes, No breakdown Musculoskeletal: No Tenderness to Palpation of Joints or Extremities Neurological: Cranial nerves II-XII grossly intact, Neuro grossly intact, Sensory exam intact to light touch and pain, Coordination normal Psych/Mental Status: - - Patient is alert and answers simple questions appropriately Vitals/I&O's: Vital Signs Temp Pulse Resp BP Pulse Ox 97.9 F 72 18 105/62 95 09/10/20 15:24 09/10/20 15:24 09/10/20 15:24 09/10/20 15:24 09/10/20 15:24 Oxygen Flow Rate (L/min) 3 Oxygen Delivery Method Nasal Cannula Weight: 89.04 kg Body Mass Index (BMI) 29.8 Finger Stick Blood Glucose 188 Intake and Output for Last 24 Hours 09/08/20 09/09/20 09/10/20 23:59 23:59 23:59 Intake Total 852.63 / 1032.63 1149.00 / 1329.00 443.67 / 443.67 Output Total 150 / 300 375 / 525 300 / 300 Balance 702.63 / 732.63 774.00 / 804.00 143.67 / 143.67 Laboratory Results 09/09/20 17:40: APTT 56.4 H 09/09/20 21:00: POC Glucose 234 H 09/10/20 05:49: POC Glucose 202 H 09/10/20 06:00: WBC 8.5, RBC 3.19 L, Hgb 8.6 L, Hct 28.5 L, MCV 89.3, MCH 27.0, MCHC 30.2 L, RDW Std Deviation 54.4 H, RDW Coeff of Yessi 16.7 H, Plt Count 197, MPV 10.5, Immature Gran % (Auto) 0.400, Neut % (Auto) 72.6 H, Lymph % (Auto) 15.5 L, [place] % (Auto) 9.7, Eos % (Auto) 1.3, Baso % (Auto) 0.5, Absolute Neuts (auto) 6.2, Absolute Lymphs (auto) 1.32, Nucleated RBC % 0 09/10/20 06:00: Sodium 130 L, Potassium 3.8, Chloride 94 L, Carbon Dioxide 30.0, Anion Gap 6, BUN 78 H, Creatinine 2.66 H, Estim Creat Clear Calc 21.79, Est GFR (MDRD) Af Amer 30 L, Est GFR (MDRD) Non-Af 25 L, BUN/Creatinine Ratio 29.3 H, Glucose 198 H, Calcium 9.1, Total Bilirubin 0.90, AST 24, ALT 89 H, Alkaline Phosphatase 84, Total Protein 6.9, Albumin 2.7 L, Globulin 4.2, Albumin/Globulin Ratio 0.6 L 09/10/20 06:00: APTT 75.7 H 09/10/20 06:00: PT 16.9 H, INR 1.4 09/10/20 11:54: POC Glucose 216 H 09/10/20 17:02: POC Glucose 227 H 09/10/20 18:05: APTT Pending Current Medications Acetaminophen (Acetaminophen 325 Mg Tablet) 325 mg PO Q4H PRN PRN PRN Reason: Pain Score 1-10 Last Admin: 09/05/20 08:44 Dose: 325 mg Documented by: Al Hydroxide/Mg Hydroxide (Mag Hydrox/Al Hydrox/Simeth 30 Ml Udc) 30 ml PO Q4H PRN PRN PRN Reason: gi distress Last Admin: 09/08/20 01:08 Dose: 30 ml Documented by: Albuterol Sulfate (Albuterol 2.5 Mg/3 Ml Vial.Neb.) 2.5 mg INHALATION Q4H PRN PRN Reason: Wheezing Last Admin: 09/08/20 23:52 Dose: 2.5 mg Documented by: Albuterol/Ipratropium (Ipratropium/Albuterol Sulfate 3 Ml Ampul.Neb) 3 ml INHALATION Q6H.RT [facility] Last Admin: 09/10/20 13:35 Dose: 3 ml Documented by: Allopurinol (Allopurinol 100 Mg Tablet) 100 mg PO DAILYCM [facility] Last Admin: 09/08/20 09:08 Dose: 100 mg Documented by: Amiodarone HCl (Amiodarone 200 Mg Tablet) 200 mg PO DAILY [facility] Last Admin: 09/10/20 08:48 Dose: 200 mg Documented by: Aspirin (Aspirin 81 Mg Tab.Chew) 81 mg PO DAILY@0800 [facility] Last Admin: 09/10/20 08:47 Dose: 81 mg Documented by: Atorvastatin Calcium (Atorvastatin Calcium 80 Mg Tablet) 80 mg PO QHS [facility] Last Admin: 09/09/20 21:02 Dose: 80 mg Documented by: Budesonide (Budesonide Respules 0.5 Mg/2 Ml Ampul.Neb.) 0.5 mg INHALATION BID.RT [facility] Last Admin: 09/10/20 07:39 Dose: 0.5 mg Documented by: Dextrose (Dextrose 50%-Water 25 Gm/50 Ml Disp.Syrin) 0 gm IV X1 PRN; Protocol PRN Reason: Hypoglycemia Docusate Sodium (Docusate Sodium 100 Mg Capsule) 100 mg PO BID [facility] Last Admin: 09/10/20 08:48 Dose: 100 mg Documented by: Finasteride (Finasteride 5 Mg Tablet) 5 mg PO DAILY [facility] Last Admin: 09/10/20 08:48 Dose: 5 mg Documented by: Furosemide (Furosemide 40 Mg/4 Ml Vial) 40 mg IV BID@1000,1800 [facility] Last Admin: 09/10/20 17:03 Dose: 40 mg Documented by: Glucagon (Glucagon 1 Mg/Ml Syringe) 1 mg IM .X1 PRN PRN Reason: Hypoglycemia Heparin Sodium (Porcine) (Heparin Injection (Vial) 5,000 Unit/Ml Vial) 0 unit IV UD PRN; Protocol PRN Reason: dose adjustment Hydrocortisone Acetate (Hydrocortisone 25 Mg Suppository) 25 mg RC TID PRN PRN PRN Reason: Rectal Discomfort Last Admin: 09/10/20 08:50 Dose: 25 mg Documented by: Sodium Chloride () 250 mls @ 15 mls/hr IV .[id number] PRN PRN Reason: Saline Flush Last Infusion: 09/08/20 18:56 Dose: Infused Documented by: Sodium Chloride () 250 mls @ 15 mls/hr IV .[id number] PRN PRN Reason: Additional IVPB Infusion Heparin Sodium/Dextrose () 25,000 units in 250 mls @ 8 mls/hr IV .[id number] [facility]; Protocol Last Admin: 09/10/20 12:00 Dose: 800 units/hr, 8 mls/hr Documented by: Insulin Glargine (Insulin Glargine 100 Units/Ml Pen) 18 units SC QHS [facility] Last Admin: 09/09/20 21:01 Dose: 18 units Documented by: Insulin Human Lispro (Insulin Lispro 100 Unit/Ml Insuln.Pen) 0 unit SC [facility]; Protocol Last Admin: 09/10/20 17:03 Dose: 2 units Documented by: Levothyroxine Sodium (Levothyroxine 50 Mcg Tablet) 50 mcg PO DAILY@0600 [facility] Last Admin: 09/10/20 05:50 Dose: 50 mcg Documented by: Magnesium Hydroxide (Magnesium Hydroxide 30 Ml Udc) 30 ml PO DAILY PRN PRN PRN Reason: CONSTIPATION Metoprolol Succinate (Metoprolol(Xl)Succ 50 Mg Tablet) 50 mg PO DAILY [facility] Last Admin: 09/10/20 08:49 Dose: 50 mg Documented by: Nitroglycerin (Nitroglycerin (Inpatient Use) 0.4 Mg Tab.Subl) 0.4 mg SUBLINGUAL Q5M PRN PRN Reason: Angina Nystatin (Nystatin Ointment) 1 applic TOPICAL BID [facility]; Protocol Last Admin: 09/10/20 08:49 Dose: 1 applicatio Documented by: Oxycodone HCl (Oxycodone 5 Mg Tablet) 5 mg PO Q4H PRN PRN PRN Reason: Pain Score 1-10 Last Admin: 09/01/20 22:17 Dose: 5 mg Documented by: Pantoprazole Sodium (Pantoprazole Sodium 20 Mg Tablet) 20 mg PO BID [facility] Last Admin: 09/10/20 08:49 Dose: 20 mg Documented by: Senna (Senna Tablet) 1 tablet PO DAILY [facility] Last Admin: 09/10/20 08:49 Dose: 1 tablet Documented by: Sodium Chloride (0.9% Saline Lock 10 Ml Syringe) 10 - 40 ml IV UD PRN PRN Reason: SALINE FLUSH Last Admin: 09/09/20 10:27 Dose: 10 ml Documented by: Tamsulosin HCl (Tamsulosin Hcl 0.4 Mg Capsule) 0.8 mg PO DAILY@0830 [facility] Last Admin: 09/10/20 08:47 Dose: 0.8 mg Documented by: STROKE Vital Signs/Narrative: Vital Signs Temp Pulse Resp BP Pulse Ox 09/10/20 15:24 97.9 F 72 18 105/62 95 Medical Necessity - Tobacco Use Smoking Status: Former smoker Tobacco Use: Non-smoker Assessment/Plan All Active Problems Hyperkalemia (Acute) GI bleed (Resolved) Supratherapeutic INR (Acute) Gross hematuria (Acute) Anticoagulation goal of INR 2.5 to 3.5 (Acute) Facial droop (Resolved) 1. Acute on chronic heart failure with reduced EF, EF of 30%, remains about the same Hemoptysis is noted this morning was likely from pulmonary edema Start scheduled Lasix 40 mg IV twice daily, continue with strict CHF protocol with fluid restriction, AL wraps to lower extremities Repeat renal function in a.m. 2. Acute on chronic hypoxic respiratory failure secondary to acute CHF/history of COPD Continue on 2-3 L of oxygen, will continue to monitor 3. Gross hematuria for cystoscopy with evacuation of blood clots, TURP 09/04/20 Patient with ongoing slight hematuria Urology following 4. Acute blood loss anemia secondary to hematuria, status post 3 units of packed RBCs, H&H today is 8.6 Will transfuse when hemoglobin is less than 7 5. Mechanical aortic heart valve/chronic atrial fibrillation/CAD status post stent in March 2020/hypertension Status post FFP's for supratherapeutic INR 4.1 on 09/01/20 INR is currently 1.4, continue on heparin drip, aspirin, statin, metoprolol, warfarin 5 mg daily for now, repeat INR in a.m. 6. Type II DM, sugars are uncontrolled, will increase Lantus to 18 units daily, continue with insulin sliding scale 7. Hypothyroidism, continue on synthroid 8. HUONG on CKD stage IV, baseline creatinine 1.3-1.6 Creatinine currently 2.66, nephrology consulted, following Repeat blood work in a.m. 9. DVT prophylaxis?on heparin drip and coumadin Inpatient E&M: [id number] [facility] Hosp L3
[2020-09-10 18:42] LABS: Partial Thromboplast Time 39.1 Seconds (24.1-36.2)
[2020-09-10] MEDS: Heparin Injection (Vial) 5,000 UNIT/ML VIAL IV (18:56)
[2020-09-10] MEDS: Atorvastatin Calcium 80 MG Tablet PO (20:49)
[2020-09-10 21:56] LABS: Bedside Glucose 190 mg/dL (70-110)
[2020-09-10] MEDS: HEPARIN/D5w 25,000 UNITS 25,000 UNITS/250 ML IV.SOLN. 10 UNITS IV (23:34)
[2020-09-11] VITALS (24 sets, daily range): BP systolic 102–118; BP diastolic 60–69; PULSE 55–86; RESP 16–24; TEMP 36.5–37; O2SAT 79–98
[2020-09-11 01:43] LABS: Absolute Neutrophil Count 7.5 X10^3/uL (2.0-7.7); Basophil# 0.05 X10^3/uL; Basophil% 0.5 % (0-1); Eosinophil# 0.07 X10^3/uL; Eosinophils% 0.7 % (0-5); Hematocrit 27.6 % (40-54); Hemoglobin 8.5 g/dL (13.0-16.5); Lymphocyte % 13.9 % (19-41); Mean Corp Hgb Conc 30.8 g/dL (32-36); Mean Corpuscular Hgb 27.3 pg (27.0-32.0); Mean Corpuscular Volume 88.7 fL (80-94); Mean Platelet Vol. 10.9 fl (6.2-12.0); Monocyte# 1.03 X10^3/uL; Monocyte% 10.2 % (0-10); NRBC Flagged by Analyzer 0 % (0-5); Neutrophil % 74.3 % (47-70); Platelet Count 213 K/mm3 (150-450); RBC Distribution Width CV 16.9 % (11.6-14.6); RBC Distribution Width SD 54.3 fl (35.1-43.9); Red Blood Count 3.11 M/mm3 (4.6-6.2); White Blood Count 10.1 K/mm3 (4.4-11.0)
[2020-09-11 01:51] LABS: ALB/GLOB Ratio 0.7 RATIO (0.9-2.4); AST(SGOT) 22 U/L (15-37); Alanine Aminotransfer ALT/SGPT 80 U/L (16-61); Albumin, Serum 2.9 g/dL (3.2-5.0); Alkaline Phosphatase 82 U/L (45-117); Anion Gap 5 (5-15); BUN 81 mg/dL (7-18); BUN/Creat Ratio 28.2 RATIO (10-20); Calcium,Total 9.3 mg/dL (8.5-10.1); Chloride 98 mmol/L (98-107); Creatinine, Serum 2.87 mg/dL (0.70-1.30); EST Glomerular Filtration Rate 23 mL/min (>60); Est Glom Filt Rate - Afr Amer 27 mL/min (>60); Estimated Creatinine Clearance 20.19 ml/min; Globulin 4.3 g/dL (2.2-4.2); Glucose 134 mg/dL (74-106); Potassium 3.7 mmol/L (3.5-5.1); Protein, Total 7.2 g/dL (6.4-8.2); Sodium Level 134 mmol/L (136-145)
[2020-09-11 02:40] LABS: Partial Thromboplast Time 47.8 Seconds (24.1-36.2)
[2020-09-11 02:42] LABS: International Normalized Ratio 1.4; Prothrombin Time (Protime)PT. 16.6 SECONDS (11.7-14.9)
[2020-09-11] MEDS: Hydrocortisone 25 MG Suppository RC (02:49)
[2020-09-11] MEDS: Levothyroxine 50 MCG Tablet PO (05:59)
[2020-09-11 06:06] LABS: Bedside Glucose 133 mg/dL (70-110)
[2020-09-11] MEDS: Ipratropium/Albuterol Sulfate 3 ML AMPUL.NEB INHALATION ×4 (06:45→22:37)
[2020-09-11] MEDS: Budesonide Respules 0.5 MG/2 ML AMPUL.NEB. INHALATION (06:45)
[2020-09-11] MEDS: Finasteride 5 MG Tablet PO (08:41)
[2020-09-11] MEDS: 0.9% Saline Lock 10 ML Syringe IV (08:41)
[2020-09-11] MEDS: Furosemide 40 MG/4 ML Vial IV (08:41)
[2020-09-11] MEDS: Docusate Sodium 100 MG Capsule PO ×2 (08:41→20:59)
[2020-09-11] MEDS: Amiodarone 200 MG Tablet PO (08:42)
[2020-09-11] MEDS: Tamsulosin HCl 0.4 MG Capsule 0.8 MG PO (08:42)
[2020-09-11] MEDS: Senna Tablet 1 TABLET PO (08:42)
[2020-09-11] MEDS: Aspirin 81 MG TAB.CHEW PO (08:42)
[2020-09-11] MEDS: Pantoprazole Sodium 20 MG Tablet PO ×2 (08:42→20:59)
[2020-09-11] MEDS: Metoprolol(XL)Succ 50 MG Tablet PO (08:42)
[2020-09-11] MEDS: Nystatin Ointment 1 APPLIC TOPICAL ×2 (08:55→20:59)
[2020-09-11] MEDS: Magnesium Hydroxide 30 ML UDC PO (08:57)
--- NOTE | 2020-09-11 08:58 | PCM.PN.PUL ---
Patient Problems: Active and Suspected Problems Hyperkalemia (Acute) Supratherapeutic INR (Acute) Gross hematuria (Acute) Subjective: Patient did okay overnight. No acute issues were reported. Patient continues to have hemoptysis, but this is improving in color and size. Patient states hemoptysis is dime size and darker in color. No associated chest pain is been reported. - Physical Exam Vitals/I&O's: Vital Signs Temp Pulse Resp BP Pulse Ox 36.5 C L 70 16 118/61 94 09/11/20 03:30 09/11/20 08:42 09/11/20 06:45 09/11/20 03:30 09/11/20 06:45 Oxygen Flow Rate (L/min) 3 Oxygen Delivery Method Nasal Cannula Weight: 89.04 kg Body Mass Index (BMI) 29.8 Finger Stick Blood Glucose 188 Intake and Output for Last 24 Hours 09/09/20 09/10/20 09/11/20 23:59 23:59 23:59 Intake Total 1149.00 / 1329.00 693.67 / 873.67 397.67 / 397.67 Output Total 375 / 525 300 / 300 Balance 774.00 / 804.00 393.67 / 573.67 397.67 / 397.67 General: Alert, Oriented x3, Cooperative, No apparent distress, - - No conversational dyspnea HEENT: Atraumatic, PERRLA, EOMI, Normocephalic, - - Slight scleral injection without icterus Oral: Moist Mucosa, No Gingival or Mucosal Lesions/ Ulcerations Neck: Supple, No Nodes, Trachea Midline Lungs: No rhonchi, No wheeze, No rales, Diminished, - - Symmetric expansion Cardiovascular: Normal S1, Normal S2, Irregular Rate, No rub noted, No Gallop, - - Mechanical heart sound Abdomen: Bowel Sounds Present, Soft, Non Tender, Non-Distended Extremities: No cyanosis, No edema, Clubbing Skin: - - No change from previous Musculoskeletal: No Tenderness to Palpation of Joints or Extremities Lymphatic: No Cervical, Supraclavicular, or Inguinal Adenopathy Neurological: Cranial nerves II-XII grossly intact, Neuro grossly intact, Motor Exam 5/5 strength throughout Psych/Mental Status: Appropriate Laboratory Results 09/10/20 06:00: PT 16.9 H, INR 1.4 09/10/20 11:54: POC Glucose 216 H 09/10/20 17:02: POC Glucose 227 H 09/10/20 18:05: APTT 39.1 H 09/10/20 20:45: POC Glucose 190 H 09/11/20 01:15: PT 16.6 H, INR 1.4 09/11/20 01:15: WBC 10.1, RBC 3.11 L, Hgb 8.5 L, Hct 27.6 L, MCV 88.7, MCH 27.3, MCHC 30.8 L, RDW Std Deviation 54.3 H, RDW Coeff of Yessi 16.9 H, Plt Count 213, MPV 10.9, Immature Gran % (Auto) 0.400, Neut % (Auto) 74.3 H, Lymph % (Auto) 13.9 L, [place] % (Auto) 10.2 H, Eos % (Auto) 0.7, Baso % (Auto) 0.5, Absolute Neuts (auto) 7.5, Absolute Lymphs (auto) 1.40, Nucleated RBC % 0 09/11/20 01:15: Sodium 134 L, Potassium 3.7, Chloride 98, Carbon Dioxide 31.0, Anion Gap 5, BUN 81 H, Creatinine 2.87 H, Estim Creat Clear Calc 20.19, Est GFR (MDRD) Af Amer 27 L, Est GFR (MDRD) Non-Af 23 L, BUN/Creatinine Ratio 28.2 H, Glucose 134 H, Calcium 9.3, Total Bilirubin 0.80, AST 22, ALT 80 H, Alkaline Phosphatase 82, Total Protein 7.2, Albumin 2.9 L, Globulin 4.3 H, Albumin/Globulin Ratio 0.7 L 09/11/20 01:15: APTT 47.8 H 09/11/20 05:56: POC Glucose 133 H Current Medications Acetaminophen (Acetaminophen 325 Mg Tablet) 325 mg PO Q4H PRN PRN PRN Reason: Pain Score 1-10 Last Admin: 09/05/20 08:44 Dose: 325 mg Documented by: Al Hydroxide/Mg Hydroxide (Mag Hydrox/Al Hydrox/Simeth 30 Ml Udc) 30 ml PO Q4H PRN PRN PRN Reason: gi distress Last Admin: 09/08/20 01:08 Dose: 30 ml Documented by: Albuterol Sulfate (Albuterol 2.5 Mg/3 Ml Vial.Neb.) 2.5 mg INHALATION Q4H PRN PRN Reason: Wheezing Last Admin: 09/08/20 23:52 Dose: 2.5 mg Documented by: Albuterol/Ipratropium (Ipratropium/Albuterol Sulfate 3 Ml Ampul.Neb) 3 ml INHALATION Q6H.RT [facility] Last Admin: 09/11/20 06:45 Dose: 3 ml Documented by: Allopurinol (Allopurinol 100 Mg Tablet) 100 mg PO DAILYCM [facility] Last Admin: 09/08/20 09:08 Dose: 100 mg Documented by: Amiodarone HCl (Amiodarone 200 Mg Tablet) 200 mg PO DAILY [facility] Last Admin: 09/11/20 08:42 Dose: 200 mg Documented by: Aspirin (Aspirin 81 Mg Tab.Chew) 81 mg PO DAILY@0800 [facility] Last Admin: 09/11/20 08:42 Dose: 81 mg Documented by: Atorvastatin Calcium (Atorvastatin Calcium 80 Mg Tablet) 80 mg PO QHS [facility] Last Admin: 09/10/20 20:49 Dose: 80 mg Documented by: Budesonide (Budesonide Respules 0.5 Mg/2 Ml Ampul.Neb.) 0.5 mg INHALATION BID.RT [facility] Last Admin: 09/11/20 06:45 Dose: 0.5 mg Documented by: Dextrose (Dextrose 50%-Water 25 Gm/50 Ml Disp.Syrin) 0 gm IV X1 PRN; Protocol PRN Reason: Hypoglycemia Docusate Sodium (Docusate Sodium 100 Mg Capsule) 100 mg PO BID [facility] Last Admin: 09/11/20 08:41 Dose: 100 mg Documented by: Finasteride (Finasteride 5 Mg Tablet) 5 mg PO DAILY [facility] Last Admin: 09/11/20 08:41 Dose: 5 mg Documented by: Furosemide (Furosemide 40 Mg/4 Ml Vial) 40 mg IV BID@1000,1800 [facility] Last Admin: 09/11/20 08:41 Dose: 40 mg Documented by: Glucagon (Glucagon 1 Mg/Ml Syringe) 1 mg IM .X1 PRN PRN Reason: Hypoglycemia Heparin Sodium (Porcine) (Heparin Injection (Vial) 5,000 Unit/Ml Vial) 0 unit IV UD PRN; Protocol PRN Reason: dose adjustment Last Admin: 09/10/20 18:56 Dose: 1,000 unit Documented by: Hydrocortisone Acetate (Hydrocortisone 25 Mg Suppository) 25 mg RC TID PRN PRN PRN Reason: Rectal Discomfort Last Admin: 09/11/20 02:49 Dose: 25 mg Documented by: Sodium Chloride () 250 mls @ 15 mls/hr IV .[id number] PRN PRN Reason: Saline Flush Last Infusion: 09/08/20 18:56 Dose: Infused Documented by: Sodium Chloride () 250 mls @ 15 mls/hr IV .[id number] PRN PRN Reason: Additional IVPB Infusion Heparin Sodium/Dextrose () 25,000 units in 250 mls @ 8 mls/hr IV .[id number] [facility]; Protocol Last Titration: 09/11/20 03:20 Dose: 1,100 units/hr, 11 mls/hr Documented by: Insulin Glargine (Insulin Glargine 100 Units/Ml Pen) 18 units SC QHS [facility] Last Admin: 09/10/20 20:48 Dose: 18 units Documented by: Insulin Human Lispro (Insulin Lispro 100 Unit/Ml Insuln.Pen) 0 unit SC ACHS [facility]; Protocol Last Admin: 09/11/20 06:00 Dose: Not Given Documented by: Levothyroxine Sodium (Levothyroxine 50 Mcg Tablet) 50 mcg PO DAILY@0600 [facility] Last Admin: 09/11/20 05:59 Dose: 50 mcg Documented by: Magnesium Hydroxide (Magnesium Hydroxide 30 Ml Udc) 30 ml PO DAILY PRN PRN PRN Reason: CONSTIPATION Last Admin: 09/11/20 08:57 Dose: 30 ml Documented by: Metoprolol Succinate (Metoprolol(Xl)Succ 50 Mg Tablet) 50 mg PO DAILY [facility] Last Admin: 09/11/20 08:42 Dose: 50 mg Documented by: Nitroglycerin (Nitroglycerin (Inpatient Use) 0.4 Mg Tab.Subl) 0.4 mg SUBLINGUAL Q5M PRN PRN Reason: Angina Nystatin (Nystatin Ointment) 1 applic TOPICAL BID [facility]; Protocol Last Admin: 09/11/20 08:55 Dose: 1 applicatio Documented by: Oxycodone HCl (Oxycodone 5 Mg Tablet) 5 mg PO Q4H PRN PRN PRN Reason: Pain Score 1-10 Last Admin: 09/01/20 22:17 Dose: 5 mg Documented by: Pantoprazole Sodium (Pantoprazole Sodium 20 Mg Tablet) 20 mg PO BID [facility] Last Admin: 09/11/20 08:42 Dose: 20 mg Documented by: Senna (Senna Tablet) 1 tablet PO DAILY [facility] Last Admin: 09/11/20 08:42 Dose: 1 tablet Documented by: Sodium Chloride (0.9% Saline Lock 10 Ml Syringe) 10 - 40 ml IV UD PRN PRN Reason: SALINE FLUSH Last Admin: 09/11/20 08:41 Dose: 10 ml Documented by: Tamsulosin HCl (Tamsulosin Hcl 0.4 Mg Capsule) 0.8 mg PO DAILY@0830 [facility] Last Admin: 09/11/20 08:42 Dose: 0.8 mg Documented by: Clinical Impression(s) from Imaging Studies Chest X-Ray 09/10/20 09:35 IMPRESSION: Persistent CHF although there has been improvement as compared to prior study. Electronically Signed: Cyrus Saeed MD at 13:42 EST , Service support , Chest CT 09/10/20 15:23 IMPRESSION: 1. Findings consistent with CHF.. There are moderate bilateral pleural effusions and atelectasis. 2. Cardiomegaly with coronary artery calcifications and aortic valve replacement. 3. Mediastinal lymphadenopathy. Electronically Signed: Feng Spencer DO at 16:55 EST Tel [phone], Service support , Medical Necessity - Tobacco Use Smoking Status: Former smoker Tobacco Use: Non-smoker Assessment/Plan All Active Problems Hyperkalemia (Acute) GI bleed (Resolved) Supratherapeutic INR (Acute) Gross hematuria (Acute) Anticoagulation goal of INR 2.5 to 3.5 (Acute) Facial droop (Resolved) RECOMMENDATIONS: 1. Could consider thoracentesis (diagnostic and therapeutic) if diuresis unsuccessful 2. Continue with diuresis as tolerated 3. Agree with heparin for anticoagulation for now 4. No indication from a pulmonary perspective for transfer to a tertiary center 5. No plans for bronchoscopy at this time 6. Patient would have to be evaluated for bronchial artery coiling if worsens IMPRESSIONS: 1. Hemoptysis Unclear etiology. Patient does require anticoagulation secondary to mechanical heart valve. 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 This appears to be improving at this time. No indication for bronchoscopy from my perspective. If hemoptysis were to get worse, bronchial artery embolization would be the appropriate action. Given the calcinosis, bleeding could be coming from anywhere in the bronchial tree. Patient does have some mediastinal lymphadenopathy, but no masses are appreciated. H&H remained stable. 2. Bilateral pleural effusion/acute hypoxic respiratory insufficiency Given congestive heart failure, clinical suspicion for transudate physiology. Unclear if this has been tapped previously. Could obtain a diagnostic and therapeutic thoracentesis prior to initiation of chronic anticoagulation if not done previously. Otherwise, patient is requiring only minimal nasal cannula oxygen at this time and would benefit from diuresis. If patient's renal function precludes further diuresis, thoracentesis would be indicated. 3. Acute blood loss anemia/mechanical heart valve/chronic A. fib/CAD/diabetes mellitus type 2/HUONG on CKD stage IV Complicates care, management, recovery and prognosis. Patient is having hemoptysis, but this would not account for patient's need for 3 units of packed red blood cells. Clinical suspicion patient has chronic hypoxia given clubbing on exam. Continue to monitor blood sugars closely. If renal function precludes continued diuresis, thoracentesis could be used to address hypoxemia. Inpatient E&M: [id number] [facility] Hosp L2
[2020-09-11 09:34] LABS: Partial Thromboplast Time 53.7 Seconds (24.1-36.2)
[2020-09-11] MEDS: Insulin Lispro 100 UNIT/ML INSULN.PEN SC ×3 (11:33→21:55)
[2020-09-11 12:20] LABS: Bedside Glucose 239 mg/dL (70-110)
--- NOTE | 2020-09-11 13:20 | PN.RENAL_ITS ---
Patient Problems: Active and Suspected Problems Hyperkalemia (Acute) Supratherapeutic INR (Acute) Gross hematuria (Acute) Subjective: still with cough, wheezing, hemoptysis. Creatinine elevation on lasix bid iv. Will cut back lasix to daily - Physical Exam Vitals/I&O's: Vital Signs Temp Pulse Resp BP Pulse Ox 97.7 F L 70 18 102/60 93 09/11/20 08:45 09/11/20 11:55 09/11/20 08:45 09/11/20 08:45 09/11/20 11:35 Oxygen Flow Rate (L/min) 3 Oxygen Delivery Method Nasal Cannula Weight: 89.04 kg Body Mass Index (BMI) 29.8 Finger Stick Blood Glucose 188 Intake and Output for Last 24 Hours 09/09/20 09/10/20 09/11/20 23:59 23:59 23:59 Intake Total 1149.00 / 1329.00 693.67 / 873.67 467.89 / 467.89 Output Total 375 / 525 300 / 300 Balance 774.00 / 804.00 393.67 / 573.67 467.89 / 467.89 General: Alert, Oriented x3, Cooperative, No apparent distress Lungs: Wheezes Cardiovascular: Irregular Rate - afib Abdomen: Bowel Sounds Present, Soft, Non Tender, Obese Extremities: Edema Psych/Mental Status: Alert and oriented to time, place, person, mood and affect Laboratory Results 09/10/20 17:02: POC Glucose 227 H 09/10/20 18:05: APTT 39.1 H 09/10/20 20:45: POC Glucose 190 H 09/11/20 01:15: PT 16.6 H, INR 1.4 09/11/20 01:15: WBC 10.1, RBC 3.11 L, Hgb 8.5 L, Hct 27.6 L, MCV 88.7, MCH 27.3, MCHC 30.8 L, RDW Std Deviation 54.3 H, RDW Coeff of Yessi 16.9 H, Plt Count 213, MPV 10.9, Immature Gran % (Auto) 0.400, Neut % (Auto) 74.3 H, Lymph % (Auto) 13.9 L, Gove % (Auto) 10.2 H, Eos % (Auto) 0.7, Baso % (Auto) 0.5, Absolute Neuts (auto) 7.5, Absolute Lymphs (auto) 1.40, Nucleated RBC % 0 09/11/20 01:15: Sodium 134 L, Potassium 3.7, Chloride 98, Carbon Dioxide 31.0, Anion Gap 5, BUN 81 H, Creatinine 2.87 H, Estim Creat Clear Calc 20.19, Est GFR (MDRD) Af Amer 27 L, Est GFR (MDRD) Non-Af 23 L, BUN/Creatinine Ratio 28.2 H, Glucose 134 H, Calcium 9.3, Total Bilirubin 0.80, AST 22, ALT 80 H, Alkaline Phosphatase 82, Total Protein 7.2, Albumin 2.9 L, Globulin 4.3 H, Albumin/Globulin Ratio 0.7 L 09/11/20 01:15: APTT 47.8 H 09/11/20 05:56: POC Glucose 133 H 09/11/20 09:11: APTT 53.7 H 09/11/20 11:31: POC Glucose 239 H Current Medications Acetaminophen (Acetaminophen 325 Mg Tablet) 325 mg PO Q4H PRN PRN PRN Reason: Pain Score 1-10 Last Admin: 09/05/20 08:44 Dose: 325 mg Documented by: Al Hydroxide/Mg Hydroxide (Mag Hydrox/Al Hydrox/Simeth 30 Ml Udc) 30 ml PO Q4H PRN PRN PRN Reason: gi distress Last Admin: 09/08/20 01:08 Dose: 30 ml Documented by: Albuterol Sulfate (Albuterol 2.5 Mg/3 Ml Vial.Neb.) 2.5 mg INHALATION Q4H PRN PRN Reason: Wheezing Last Admin: 09/08/20 23:52 Dose: 2.5 mg Documented by: Albuterol/Ipratropium (Ipratropium/Albuterol Sulfate 3 Ml Ampul.Neb) 3 ml INHALATION Q6H.RT [facility] Last Admin: 09/11/20 13:01 Dose: 3 ml Documented by: Allopurinol ([facility]op[facility] 100 Mg Tablet) [facility] Last Admin: 09/08/20 09:08 Dose: 100 mg Documented by: Amiodarone HCl (Amiodarone 200 Mg Tablet) 200 mg PO DAILY [facility] Last Admin: 09/11/20 08:42 Dose: 200 mg Documented by: Aspirin (Aspirin 81 Mg Tab.Chew) 81 mg PO DAILY@0800 [facility] Last Admin: 09/11/20 08:42 Dose: 81 mg Documented by: Atorvastatin Calcium (Atorvastatin Calcium 80 Mg Tablet) 80 mg PO QHS [facility] Last Admin: 09/10/20 20:49 Dose: 80 mg Documented by: Budesonide (Budesonide Respules 0.5 Mg/2 Ml Ampul.Neb.) 0.5 mg INHALATION BID.RT [facility] Last Admin: 09/11/20 06:45 Dose: 0.5 mg Documented by: Dextrose (Dextrose 50%-Water 25 Gm/50 Ml Disp.Syrin) 0 gm IV X1 PRN; Protocol PRN Reason: Hypoglycemia Docusate Sodium (Docusate Sodium 100 Mg Capsule) 100 mg PO BID [facility] Last Admin: 09/11/20 08:41 Dose: 100 mg Documented by: Finasteride (Finasteride 5 Mg Tablet) 5 mg PO DAILY [facility] Last Admin: 09/11/20 08:41 Dose: 5 mg Documented by: Glucagon (Glucagon 1 Mg/Ml Syringe) 1 mg IM .X1 PRN PRN Reason: Hypoglycemia Heparin Sodium (Porcine) (Heparin Injection (Vial) 5,000 Unit/Ml Vial) 0 unit IV UD PRN; Protocol PRN Reason: dose adjustment Last Admin: 09/10/20 18:56 Dose: 1,000 unit Documented by: Hydrocortisone Acetate (Hydrocortisone 25 Mg Suppository) 25 mg RC TID PRN PRN PRN Reason: Rectal Discomfort Last Admin: 09/11/20 02:49 Dose: 25 mg Documented by: Sodium Chloride () 250 mls @ 15 mls/hr IV .[id number] PRN PRN Reason: Saline Flush Last Infusion: 09/08/20 18:56 Dose: Infused Documented by: Sodium Chloride () 250 mls @ 15 mls/hr IV .[id number] PRN PRN Reason: Additional IVPB Infusion Heparin Sodium/Dextrose () 25,000 units in 250 mls @ 8 mls/hr IV .[id number] [facility]; Protocol Last Titration: 09/11/20 09:43 Dose: 1,200 units/hr, 12 mls/hr Documented by: Insulin Glargine (Insulin Glargine 100 Units/Ml Pen) 18 units SC QHS [facility] Last Admin: 09/10/20 20:48 Dose: 18 units Documented by: Insulin Human Lispro (Insulin Lispro 100 Unit/Ml Insuln.Pen) 0 unit SC [facility]; Protocol Last Admin: 09/11/20 11:33 Dose: 2 units Documented by: Levothyroxine Sodium (Levothyroxine 50 Mcg Tablet) 50 mcg PO DAILY@0600 [facility] Last Admin: 09/11/20 05:59 Dose: 50 mcg Documented by: Magnesium Hydroxide (Magnesium Hydroxide 30 Ml Udc) 30 ml PO DAILY PRN PRN PRN Reason: CONSTIPATION Last Admin: 09/11/20 08:57 Dose: 30 ml Documented by: Metoprolol Succinate (Metoprolol(Xl)Succ 50 Mg Tablet) 50 mg PO DAILY [facility] Last Admin: 09/11/20 08:42 Dose: 50 mg Documented by: Nitroglycerin (Nitroglycerin (Inpatient Use) 0.4 Mg Tab.Subl) 0.4 mg SUBLINGUAL Q5M PRN PRN Reason: Angina Nystatin (Nystatin Ointment) 1 applic TOPICAL BID [facility]; Protocol Last Admin: 09/11/20 08:55 Dose: 1 applicatio Documented by: Oxycodone HCl (Oxycodone 5 Mg Tablet) 5 mg PO Q4H PRN PRN PRN Reason: Pain Score 1-10 Last Admin: 09/01/20 22:17 Dose: 5 mg Documented by: Pantoprazole Sodium (Pantoprazole Sodium 20 Mg Tablet) 20 mg PO BID [facility] Last Admin: 09/11/20 08:42 Dose: 20 mg Documented by: Senna (Senna Tablet) 1 tablet PO DAILY [facility] Last Admin: 09/11/20 08:42 Dose: 1 tablet Documented by: Sodium Chloride (0.9% Saline Lock 10 Ml Syringe) 10 - 40 ml IV UD PRN PRN Reason: SALINE FLUSH Last Admin: 09/11/20 08:41 Dose: 10 ml Documented by: Tamsulosin HCl (Tamsulosin Hcl 0.4 Mg Capsule) 0.8 mg PO DAILY@0830 [facility] Last Admin: 09/11/20 08:42 Dose: 0.8 mg Documented by: Warfarin Sodium (Warfarin 5 Mg Tablet) 5 mg PO X1 ONE Stop: 09/11/20 17:01 Medical Necessity - Tobacco Use Smoking Status: Former smoker Tobacco Use: Non-smoker Assessment/Plan All Active Problems Hyperkalemia (Acute) GI bleed (Resolved) Supratherapeutic INR (Acute) Gross hematuria (Acute) Anticoagulation goal of INR 2.5 to 3.5 (Acute) Facial droop (Resolved) 1. Acute on CKD baseline creatinine 1.3 to 1.6. Creatinine increased to 2.87. Decrease lasix to daily 2. Hemoptysis on heparin drip primary care mgmt 3. Hyponatremia from volume expansion improved with lasix 4. mechanical AVR on anticoagulation on heparin drip 5. 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
--- NOTE | 2020-09-11 13:27 | PCM.PN.HOSP ---
Patient Problems: Active and Suspected Problems Hyperkalemia (Acute) Supratherapeutic INR (Acute) Gross hematuria (Acute) Reason for Visit: Follow-up on gross hematuria/mechanical valve disease/acute on chronic CHF Subjective: Patient was seen and examined. He still has been coughing up blood. Still has pink urine. Objective: Physical exam: General: Alert, Cooperative, No apparent distress, Well developed, Well nourished, on 3 L of oxygen HEENT: Atraumatic, PERRLA, EOMI, Normocephalic Oral: Moist Mucosa Neck: Supple, No JVD, Trachea Midline, Thyroid Normal Size and Texture Lungs: Diminished air entry, wheezes++ Cardiovascular: Normal S1, Normal S2, PMI Normal, Irregular Rate, No rub noted, No Gallop, - - Mechanical click noted at the apex Abdomen: Bowel Sounds Present, Soft, Non Tender, Non-Distended Extremities: No clubbing, No cyanosis, No edema, Capillary Refill Less than 3 Seconds Skin: No rashes, No breakdown Musculoskeletal: No Tenderness to Palpation of Joints or Extremities Neurological: Cranial nerves II-XII grossly intact, Neuro grossly intact, Sensory exam intact to light touch and pain, Coordination normal Psych/Mental Status: - - Patient is alert and answers simple questions appropriately Vitals/I&O's: Vital Signs Temp Pulse Resp BP Pulse Ox 97.7 F L 78 20 H 102/60 93 09/11/20 08:45 09/11/20 13:01 09/11/20 13:01 09/11/20 08:45 09/11/20 11:35 Oxygen Flow Rate (L/min) 3 Oxygen Delivery Method Nasal Cannula Weight: 89.04 kg Body Mass Index (BMI) 29.8 Finger Stick Blood Glucose 188 Intake and Output for Last 24 Hours 09/09/20 09/10/20 09/11/20 23:59 23:59 23:59 Intake Total 1149.00 / 1329.00 693.67 / 873.67 467.89 / 467.89 Output Total 375 / 525 300 / 300 Balance 774.00 / 804.00 393.67 / 573.67 467.89 / 467.89 Laboratory Results 09/10/20 17:02: POC Glucose 227 H 09/10/20 18:05: APTT 39.1 H 09/10/20 20:45: POC Glucose 190 H 09/11/20 01:15: PT 16.6 H, INR 1.4 09/11/20 01:15: WBC 10.1, RBC 3.11 L, Hgb 8.5 L, Hct 27.6 L, MCV 88.7, MCH 27.3, MCHC 30.8 L, RDW Std Deviation 54.3 H, RDW Coeff of Yessi 16.9 H, Plt Count 213, MPV 10.9, Immature Gran % (Auto) 0.400, Neut % (Auto) 74.3 H, Lymph % (Auto) 13.9 L, Floyd % (Auto) 10.2 H, Eos % (Auto) 0.7, Baso % (Auto) 0.5, Absolute Neuts (auto) 7.5, Absolute Lymphs (auto) 1.40, Nucleated RBC % 0 09/11/20 01:15: Sodium 134 L, Potassium 3.7, Chloride 98, Carbon Dioxide 31.0, Anion Gap 5, BUN 81 H, Creatinine 2.87 H, Estim Creat Clear Calc 20.19, Est GFR (MDRD) Af Amer 27 L, Est GFR (MDRD) Non-Af 23 L, BUN/Creatinine Ratio 28.2 H, Glucose 134 H, Calcium 9.3, Total Bilirubin 0.80, AST 22, ALT 80 H, Alkaline Phosphatase 82, Total Protein 7.2, Albumin 2.9 L, Globulin 4.3 H, Albumin/Globulin Ratio 0.7 L 09/11/20 01:15: APTT 47.8 H 09/11/20 05:56: POC Glucose 133 H 09/11/20 09:11: APTT 53.7 H 09/11/20 11:31: POC Glucose 239 H Current Medications Acetaminophen (Acetaminophen 325 Mg Tablet) 325 mg PO Q4H PRN PRN PRN Reason: Pain Score 1-10 Last Admin: 09/05/20 08:44 Dose: 325 mg Documented by: Al Hydroxide/Mg Hydroxide (Mag Hydrox/Al Hydrox/Simeth 30 Ml Udc) 30 ml PO Q4H PRN PRN PRN Reason: gi distress Last Admin: 09/08/20 01:08 Dose: 30 ml Documented by: Albuterol Sulfate (Albuterol 2.5 Mg/3 Ml Vial.Neb.) 2.5 mg INHALATION Q4H PRN PRN Reason: Wheezing Last Admin: 09/08/20 23:52 Dose: 2.5 mg Documented by: Albuterol/Ipratropium (Ipratropium/Albuterol Sulfate 3 Ml Ampul.Neb) 3 ml INHALATION Q6H.RT [facility] Last Admin: 09/11/20 13:01 Dose: 3 ml Documented by: Allopurinol (Allopurinol 100 Mg Tablet) 100 mg PO DAILYCM [facility] Last Admin: 09/08/20 09:08 Dose: 100 mg Documented by: Amiodarone HCl (Amiodarone 200 Mg Tablet) 200 mg PO DAILY [facility] Last Admin: 09/11/20 08:42 Dose: 200 mg Documented by: Aspirin (Aspirin 81 Mg Tab.Chew) 81 mg PO DAILY@0800 [facility] Last Admin: 09/11/20 08:42 Dose: 81 mg Documented by: Atorvastatin Calcium (Atorvastatin Calcium 80 Mg Tablet) 80 mg PO QHS [facility] Last Admin: 09/10/20 20:49 Dose: 80 mg Documented by: Budesonide (Budesonide Respules 0.5 Mg/2 Ml Ampul.Neb.) 0.5 mg INHALATION BID.RT [facility] Last Admin: 09/11/20 06:45 Dose: 0.5 mg Documented by: Dextrose (Dextrose 50%-Water 25 Gm/50 Ml Disp.Syrin) 0 gm IV X1 PRN; Protocol PRN Reason: Hypoglycemia Docusate Sodium (Docusate Sodium 100 Mg Capsule) 100 mg PO BID [facility] Last Admin: 09/11/20 08:41 Dose: 100 mg Documented by: Finasteride (Finasteride 5 Mg Tablet) 5 mg PO DAILY [facility] Last Admin: 09/11/20 08:41 Dose: 5 mg Documented by: Furosemide (Furosemide 40 Mg Tablet) 40 mg PO DAILY [facility] Glucagon (Glucagon 1 Mg/Ml Syringe) 1 mg IM .X1 PRN PRN Reason: Hypoglycemia Heparin Sodium (Porcine) (Heparin Injection (Vial) 5,000 Unit/Ml Vial) 0 unit IV UD PRN; Protocol PRN Reason: dose adjustment Last Admin: 09/10/20 18:56 Dose: 1,000 unit Documented by: Hydrocortisone Acetate (Hydrocortisone 25 Mg Suppository) 25 mg RC TID PRN PRN PRN Reason: Rectal Discomfort Last Admin: 09/11/20 02:49 Dose: 25 mg Documented by: Sodium Chloride () 250 mls @ 15 mls/hr IV .[id number] PRN PRN Reason: Saline Flush Last Infusion: 09/08/20 18:56 Dose: Infused Documented by: Sodium Chloride () 250 mls @ 15 mls/hr IV .[id number] PRN PRN Reason: Additional IVPB Infusion Heparin Sodium/Dextrose () 25,000 units in 250 mls @ 8 mls/hr IV .[id number] [facility]; Protocol Last Titration: 09/11/20 09:43 Dose: 1,200 units/hr, 12 mls/hr Documented by: Insulin Glargine (Insulin Glargine 100 Units/Ml Pen) 18 units SC QHS [facility] Last Admin: 09/10/20 20:48 Dose: 18 units Documented by: Insulin Human Lispro (Insulin Lispro 100 Unit/Ml Insuln.Pen) 0 unit SC ACHS [facility]; Protocol Last Admin: 09/11/20 11:33 Dose: 2 units Documented by: Levothyroxine Sodium (Levothyroxine 50 Mcg Tablet) 50 mcg PO DAILY@0600 [facility] Last Admin: 09/11/20 05:59 Dose: 50 mcg Documented by: Magnesium Hydroxide (Magnesium Hydroxide 30 Ml Udc) 30 ml PO DAILY PRN PRN PRN Reason: CONSTIPATION Last Admin: 09/11/20 08:57 Dose: 30 ml Documented by: Metoprolol Succinate (Metoprolol(Xl)Succ 50 Mg Tablet) 50 mg PO DAILY [facility] Last Admin: 09/11/20 08:42 Dose: 50 mg Documented by: Nitroglycerin (Nitroglycerin (Inpatient Use) 0.4 Mg Tab.Subl) 0.4 mg SUBLINGUAL Q5M PRN PRN Reason: Angina Nystatin (Nystatin Ointment) 1 applic TOPICAL BID [facility]; Protocol Last Admin: 09/11/20 08:55 Dose: 1 applicatio Documented by: Oxycodone HCl (Oxycodone 5 Mg Tablet) 5 mg PO Q4H PRN PRN PRN Reason: Pain Score 1-10 Last Admin: 09/01/20 22:17 Dose: 5 mg Documented by: Pantoprazole Sodium (Pantoprazole Sodium 20 Mg Tablet) 20 mg PO BID [facility] Last Admin: 09/11/20 08:42 Dose: 20 mg Documented by: Senna (Senna Tablet) 1 tablet PO DAILY [facility] Last Admin: 09/11/20 08:42 Dose: 1 tablet Documented by: Sodium Chloride (0.9% Saline Lock 10 Ml Syringe) 10 - 40 ml IV UD PRN PRN Reason: SALINE FLUSH Last Admin: 09/11/20 08:41 Dose: 10 ml Documented by: Tamsulosin HCl (Tamsulosin Hcl 0.4 Mg Capsule) 0.8 mg PO DAILY@0830 [facility] Last Admin: 09/11/20 08:42 Dose: 0.8 mg Documented by: Warfarin Sodium (Warfarin 5 Mg Tablet) 5 mg PO X1 ONE Stop: 09/11/20 17:01 STROKE Vital Signs/Narrative: Vital Signs Pulse Resp Pulse Ox 09/11/20 13:01 78 20 H 09/11/20 11:55 70 09/11/20 11:35 93 09/11/20 11:30 88 09/11/20 10:06 90 Medical Necessity - Tobacco Use Smoking Status: Former smoker Tobacco Use: Non-smoker Assessment/Plan All Active Problems Hyperkalemia (Acute) GI bleed (Resolved) Supratherapeutic INR (Acute) Gross hematuria (Acute) Anticoagulation goal of INR 2.5 to 3.5 (Acute) Facial droop (Resolved) 1. Acute on chronic heart failure with reduced EF, EF of 30%, remains about the same Hemoptysis is likely from pulmonary edema Continue Lasix 40 mg p.o. daily, continue with strict CHF protocol with fluid restriction, AL wraps to lower extremities Repeat renal function in a.m. 2. Acute on chronic hypoxic respiratory failure secondary to acute CHF/history of COPD Continue on 3 L of oxygen, will continue to monitor 3. Gross hematuria for cystoscopy with evacuation of blood clots, TURP 09/04/20 Patient with ongoing slight hematuria Urology following 4. Acute blood loss anemia secondary to hematuria, status post 3 units of packed RBCs, H&H today is 8.5 Transfuse when hemoglobin is less than 7 5. Mechanical aortic heart valve/chronic atrial fibrillation/CAD status post stent in March 2020/hypertension Status post FFP's for supratherapeutic INR 4.1 on 09/01/20 INR is currently 1.4, continue on heparin drip, aspirin, statin, metoprolol, warfarin 5 mg daily for now, repeat INR in a.m. 6. Type II DM, sugars are better controlled, Continue Lantus to 18 units daily with insulin sliding scale 7. Hypothyroidism, continue on synthroid 8. HUONG on CKD stage IV, baseline creatinine 1.3-1.6 Creatinine currently 2.87, nephrology consulted, following Repeat blood work in a.m. 9. DVT prophylaxis?on heparin drip and coumadin Inpatient E&M: 44182 Subs Hosp L3
[2020-09-11] MEDS: predniSONE 20 MG Tablet 40 MG PO (15:06)
[2020-09-11 15:47] LABS: Partial Thromboplast Time 62.8 Seconds (24.1-36.2)
[2020-09-11 16:16] LABS: Bedside Glucose 173 mg/dL (70-110)
--- NOTE | 2020-09-11 17:21 | NURSING ---
1710-This RN taking over care of pt at this time.
[2020-09-11] MEDS: Atorvastatin Calcium 80 MG Tablet PO (20:59)
[2020-09-11 22:21] LABS: Bedside Glucose 288 mg/dL (70-110)
[2020-09-11 22:26] LABS: Partial Thromboplast Time 82.4 Seconds (24.1-36.2)
[2020-09-12] VITALS (18 sets, daily range): BP systolic 103–111; BP diastolic 47–72; PULSE 49–85; RESP 12–30; TEMP 36.2–36.7; O2SAT 89–97
[2020-09-12] MEDS: HEPARIN/D5w 25,000 UNITS 25,000 UNITS/250 ML IV.SOLN. 8 UNITS IV (00:01)
--- NOTE | 2020-09-12 00:01 | NURSING ---
Heparin gtt held for 90 minutes per protocol. Heparin restarted at this time at 8cc/hr per protocol.
[2020-09-12 00:17] LABS: Hematocrit 26.7 % (40-54); Hemoglobin 8.4 g/dL (13.0-16.5)
[2020-09-12] MEDS: Ipratropium/Albuterol Sulfate 3 ML AMPUL.NEB INHALATION ×5 (02:04→19:27)
--- NOTE | 2020-09-12 04:16 | PCM.PN.BLA ---
Progress Note Notified by nurse that patient is wheezing and is short of breath. Patient was examined at bedside. Patient is on 3 L nasal cannula oxygen. Moderate wheezing throughout. Patient on prednisone 40 mg daily. Will give Solu-Medrol 125 mg x 1. Patient reports at home he uses BiPAP. Who put patient on BiPAP. STROKE Vital Signs/Narrative: Vital Signs Temp Pulse Resp BP Pulse Ox 09/12/20 03:27 97.1 F L 72 20 H 111/72 93 09/12/20 02:04 74 24 H
[2020-09-12] MEDS: 0.9% Saline Lock 10 ML Syringe IV (04:22)
[2020-09-12] MEDS: MethylPREDNISolone 125 MG/2 ML Vial IV (04:23)
[2020-09-12] MEDS: Levothyroxine 50 MCG Tablet PO (04:25)
[2020-09-12] MEDS: Insulin Lispro 100 UNIT/ML INSULN.PEN SC ×3 (06:34→16:51)
[2020-09-12 06:54] LABS: Partial Thromboplast Time 41.4 Seconds (24.1-36.2)
[2020-09-12 06:55] LABS: Bedside Glucose 216 mg/dL (70-110)
[2020-09-12 06:56] LABS: International Normalized Ratio 1.6; Prothrombin Time (Protime)PT. 18.8 SECONDS (11.7-14.9)
--- NOTE | 2020-09-12 07:10 | NURSING ---
PTT result 41.4 this morning. Heparin gtt rate ^ by 1unit. PTT recheck ordered for 1310
[2020-09-12 07:52] LABS: Absolute Lymphocyte Count 0.57 X10^3/uL (0.83-4.51); Absolute Neutrophil Count 6.6 X10^3/uL (2.0-7.7); Basophil# 0.01 X10^3/uL; Basophil% 0.1 % (0-1); Eosinophil# 0.03 X10^3/uL; Eosinophils% 0.4 % (0-5); Hemoglobin 9.5 g/dL (13.0-16.5); Lymphocyte # 0.57 X10^3/ul (4.0); Lymphocyte % 7.3 % (19-41); Mean Corp Hgb Conc 32.8 g/dL (32-36); Mean Corpuscular Hgb 33.1 pg (27.0-32.0); Mean Platelet Vol. 11.4 fl (6.2-12.0); Monocyte# 0.65 X10^3/uL; Monocyte% 8.3 % (0-10); NRBC Flagged by Analyzer 0 % (0-5); Neutrophil # 6.55 X10^3/uL (2.7-7.7); Neutrophil % 83.4 % (47-70); POSITIVE DIFFERENTIAL YES; Platelet Count 167 K/mm3 (150-450); RBC Distribution Width CV 17.2 % (11.6-14.6); RBC Distribution Width SD 51.9 fl (35.1-43.9); Red Blood Count 2.87 M/mm3 (4.6-6.2); White Blood Count 7.9 K/mm3 (4.4-11.0)
--- NOTE | 2020-09-12 08:06 | PCM.PN.PUL ---
Patient Problems: Active and Suspected Problems Hyperkalemia (Acute) Supratherapeutic INR (Acute) Gross hematuria (Acute) Subjective: Patient with some respiratory difficulty overnight. However, nursing reports that hemoptysis has slowly improved. Patient feels comfortable on BiPAP therapy - Physical Exam Vitals/I&O's: Vital Signs Temp Pulse Resp BP Pulse Ox 36.2 C L 60 25 H 111/72 93 09/12/20 03:27 09/12/20 06:55 09/12/20 06:55 09/12/20 03:27 09/12/20 06:55 Oxygen Flow Rate (L/min) 3 Oxygen Delivery Method Nasal Cannula Weight: 89.04 kg Body Mass Index (BMI) 29.8 Finger Stick Blood Glucose 188 Intake and Output for Last 24 Hours 09/10/20 09/11/20 09/12/20 23:59 23:59 23:59 Intake Total 693.67 / 873.67 2099. / 2099. 57.2 / 57.2 Output Total 300 / 300 Balance 393.67 / 573.67 2099. / 2099. 57.2 / 57.2 General: Alert, Cooperative, No apparent distress - On BiPAP HEENT: Atraumatic, PERRLA, EOMI, Normocephalic, - - No scleral icterus or injection noted Oral: Moist Mucosa, No Gingival or Mucosal Lesions/ Ulcerations Neck: Supple, No JVD, No Nodes, Trachea Midline Lungs: No rhonchi, No wheeze, No rales, Diminished Cardiovascular: Normal S1, Normal S2, Irregular Rate, Murmur, - - Mechanical heart sound Abdomen: Bowel Sounds Present, Soft, Non Tender, Non-Distended Extremities: No clubbing, No cyanosis, No edema Skin: - - No change from previous Musculoskeletal: No Tenderness to Palpation of Joints or Extremities Lymphatic: No Cervical, Supraclavicular, or Inguinal Adenopathy Neurological: Cranial nerves II-XII grossly intact, Neuro grossly intact, Motor Exam 5/5 strength throughout Psych/Mental Status: Flat Affect Laboratory Results 09/11/20 09:11: APTT 53.7 H 09/11/20 11:31: POC Glucose 239 H 09/11/20 15:20: APTT 62.8 H 09/11/20 16:10: POC Glucose 173 H 09/11/20 21:53: POC Glucose 288 H 09/11/20 22:09: APTT 82.4 H 09/12/20 00:10: Hgb 8.4 L, Hct 26.7 L 09/12/20 06:08: PT 18.8 H, INR 1.6 09/12/20 06:08: APTT 41.4 H 09/12/20 06:32: POC Glucose 216 H 09/12/20 07:30: WBC Pending, RBC Pending, Hgb Pending, Hct Pending, MCV Pending, MCH Pending, MCHC Pending, RDW Std Deviation Pending, RDW Coeff of Yessi Pending, Plt Count Pending, Neut % (Auto) Pending, Absolute Neuts (auto) Pending 09/12/20 07:30: Sodium Pending, Potassium Pending, Chloride Pending, Carbon Dioxide Pending, Anion Gap Pending, BUN Pending, Creatinine Pending, Est GFR (MDRD) Af Amer Pending, Est GFR (MDRD) Non-Af Pending, BUN/Creatinine Ratio Pending, Glucose Pending, Calcium Pending, Total Bilirubin Pending, AST Pending, ALT Pending, Alkaline Phosphatase Pending, Total Protein Pending, Albumin Pending Current Medications Acetaminophen (Acetaminophen 325 Mg Tablet) 325 mg PO Q4H PRN PRN PRN Reason: Pain Score 1-10 Last Admin: 09/05/20 08:44 Dose: 325 mg Documented by: Al Hydroxide/Mg Hydroxide (Mag Hydrox/Al Hydrox/Simeth 30 Ml Udc) 30 ml PO Q4H PRN PRN PRN Reason: gi distress Last Admin: 09/08/20 01:08 Dose: 30 ml Documented by: Albuterol Sulfate (Albuterol 2.5 Mg/3 Ml Vial.Neb.) 2.5 mg INHALATION Q4H PRN PRN Reason: Wheezing Last Admin: 09/08/20 23:52 Dose: 2.5 mg Documented by: Albuterol/Ipratropium (Ipratropium/Albuterol Sulfate 3 Ml Ampul.Neb) 3 ml INHALATION Q4H.RT [facility] Last Admin: 09/12/20 06:55 Dose: 3 ml Documented by: Allopurinol (Allopurinol 100 Mg Tablet) 100 mg PO DAILYCM [facility] Last Admin: 09/08/20 09:08 Dose: 100 mg Documented by: Amiodarone HCl (Amiodarone 200 Mg Tablet) 200 mg PO DAILY [facility] Last Admin: 09/11/20 08:42 Dose: 200 mg Documented by: Atorvastatin Calcium (Atorvastatin Calcium 80 Mg Tablet) 80 mg PO QHS [facility] Last Admin: 09/11/20 20:59 Dose: 80 mg Documented by: Dextrose (Dextrose 50%-Water 25 Gm/50 Ml Disp.Syrin) 0 gm IV X1 PRN; Protocol PRN Reason: Hypoglycemia Docusate Sodium (Docusate Sodium 100 Mg Capsule) 100 mg PO BID [facility] Last Admin: 09/11/20 20:59 Dose: 100 mg Documented by: Finasteride (Finasteride 5 Mg Tablet) 5 mg PO DAILY [facility] Last Admin: 09/11/20 08:41 Dose: 5 mg Documented by: Furosemide (Furosemide 40 Mg Tablet) 40 mg PO DAILY [facility] Glucagon (Glucagon 1 Mg/Ml Syringe) 1 mg IM .X1 PRN PRN Reason: Hypoglycemia Heparin Sodium (Porcine) (Heparin Injection (Vial) 5,000 Unit/Ml Vial) 0 unit IV UD PRN; Protocol PRN Reason: dose adjustment Last Admin: 09/10/20 18:56 Dose: 1,000 unit Documented by: Hydrocortisone Acetate (Hydrocortisone 25 Mg Suppository) 25 mg RC TID PRN PRN PRN Reason: Rectal Discomfort Last Admin: 09/11/20 02:49 Dose: 25 mg Documented by: Sodium Chloride () 250 mls @ 15 mls/hr IV .[id number] PRN PRN Reason: Saline Flush Last Infusion: 09/08/20 18:56 Dose: Infused Documented by: Sodium Chloride () 250 mls @ 15 mls/hr IV .[id number] PRN PRN Reason: Additional IVPB Infusion Heparin Sodium/Dextrose () 25,000 units in 250 mls @ 8 mls/hr IV .[id number] [facility]; Protocol Last Titration: 09/12/20 07:10 Dose: 900 units/hr, 9 mls/hr Documented by: Insulin Glargine (Insulin Glargine 100 Units/Ml Pen) 18 units SC QHS [facility] Last Admin: 09/11/20 21:54 Dose: 18 units Documented by: Insulin Human Lispro (Insulin Lispro 100 Unit/Ml Insuln.Pen) 0 unit SC ACHS [facility]; Protocol Last Admin: 09/12/20 06:34 Dose: 1 units Documented by: Levothyroxine Sodium (Levothyroxine 50 Mcg Tablet) 50 mcg PO DAILY@0600 [facility] Last Admin: 09/12/20 04:25 Dose: 50 mcg Documented by: Magnesium Hydroxide (Magnesium Hydroxide 30 Ml Udc) 30 ml PO DAILY PRN PRN PRN Reason: CONSTIPATION Last Admin: 09/11/20 08:57 Dose: 30 ml Documented by: Metoprolol Succinate (Metoprolol(Xl)Succ 50 Mg Tablet) 50 mg PO DAILY [facility] Last Admin: 09/11/20 08:42 Dose: 50 mg Documented by: Nitroglycerin (Nitroglycerin (Inpatient Use) 0.4 Mg Tab.Subl) 0.4 mg SUBLINGUAL Q5M PRN PRN Reason: Angina Nystatin (Nystatin Ointment) 1 applic TOPICAL BID [facility]; Protocol Last Admin: 09/11/20 20:59 Dose: 1 applicatio Documented by: Oxycodone HCl (Oxycodone 5 Mg Tablet) 5 mg PO Q4H PRN PRN PRN Reason: Pain Score 1-10 Last Admin: 09/01/20 22:17 Dose: 5 mg Documented by: Pantoprazole Sodium (Pantoprazole Sodium 20 Mg Tablet) 20 mg PO BID [facility] Last Admin: 09/11/20 20:59 Dose: 20 mg Documented by: Prednisone (Prednisone 20 Mg Tablet) 40 mg PO DAILY@0800 [facility] Stop: 09/15/20 08:01 Last Admin: 09/11/20 15:06 Dose: 40 mg Documented by: Senna (Senna Tablet) 1 tablet PO DAILY [facility] Last Admin: 09/11/20 08:42 Dose: 1 tablet Documented by: Sodium Chloride (0.9% Saline Lock 10 Ml Syringe) 10 - 40 ml IV UD PRN PRN Reason: SALINE FLUSH Last Admin: 09/12/20 04:22 Dose: 10 ml Documented by: Tamsulosin HCl (Tamsulosin Hcl 0.4 Mg Capsule) 0.8 mg PO DAILY@0830 [facility] Last Admin: 09/11/20 08:42 Dose: 0.8 mg Documented by: Medical Necessity - Tobacco Use Smoking Status: Former smoker Tobacco Use: Non-smoker Assessment/Plan All Active Problems Hyperkalemia (Acute) GI bleed (Resolved) Supratherapeutic INR (Acute) Gross hematuria (Acute) Anticoagulation goal of INR 2.5 to 3.5 (Acute) Facial droop (Resolved) RECOMMENDATIONS: 1. Could consider thoracentesis (diagnostic and therapeutic) if diuresis unsuccessful 2. Continue with diuresis as tolerated. Await morning labs 3. Continue with anticoagulation 4. No indication from a pulmonary perspective for transfer to a tertiary center 5. No plans for bronchoscopy at this time 6. Patient would have to be evaluated for bronchial artery coiling if worsens 7. Could consider chest x-ray if remains dyspneic following cessation of BiPAP IMPRESSIONS: 1. Hemoptysis Unclear etiology. Patient does require anticoagulation secondary to mechanical heart valve. 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 This appears to be improving at this time. No indication for bronchoscopy from my perspective. If hemoptysis were to get worse, bronchial artery embolization would be the appropriate action. Given the calcinosis, bleeding could be coming from anywhere in the bronchial tree. Patient does have some mediastinal lymphadenopathy, but no masses are appreciated. H&H remained stable. Could consider a chest x-ray for lobar collapse if persists and dyspnea after BiPAP 2. Bilateral pleural effusion/acute hypoxic respiratory insufficiency Given congestive heart failure, clinical suspicion for transudate physiology. Unclear if this has been tapped previously. Could obtain a diagnostic and therapeutic thoracentesis prior to initiation of chronic anticoagulation if not done previously. Otherwise, patient is requiring only minimal nasal cannula oxygen at this time and would benefit from diuresis. If patient's renal function precludes further diuresis, thoracentesis would be indicated. 3. Acute blood loss anemia/mechanical heart valve/chronic A. fib/CAD/diabetes mellitus type 2/HUONG on CKD stage IV Complicates care, management, recovery and prognosis. Patient is having hemoptysis, but this would not account for patient's need for 3 units of packed red blood cells. Clinical suspicion patient has chronic hypoxia given clubbing on exam. Continue to monitor blood sugars closely. If renal function precludes continued diuresis, thoracentesis could be used to address hypoxemia. Inpatient E&M: [id number] [facility] Hosp L2
[2020-09-12 08:21] LABS: ALB/GLOB Ratio 0.5 RATIO (0.9-2.4); AST(SGOT) 33 U/L (15-37); Alanine Aminotransfer ALT/SGPT 46 U/L (16-61); Alkaline Phosphatase 71 U/L (45-117); Anion Gap 5 (5-15); BUN 41 mg/dL (7-18); BUN/Creat Ratio 22.9 RATIO (10-20); Calcium,Total 8.5 mg/dL (8.5-10.1); Chloride 106 mmol/L (98-107); Creatinine, Serum 1.79 mg/dL (0.70-1.30); EST Glomerular Filtration Rate 39 mL/min (>60); Est Glom Filt Rate - Afr Amer 47 mL/min (>60); Estimated Creatinine Clearance 32.37 ml/min; Globulin 4.4 g/dL (2.2-4.2); Glucose 145 mg/dL (74-106); Potassium 4.3 mmol/L (3.5-5.1); Protein, Total 6.4 g/dL (6.4-8.2); Sodium Level 132 mmol/L (136-145)
[2020-09-12 08:45] LABS: Differential Indicated SCAN CRITERIA MET; Hypochromasia 1+; Platelet Estimate ADEQUATE (ADEQ)
[2020-09-12 08:46] LABS: Schistocytes RARE
[2020-09-12] MEDS: predniSONE 20 MG Tablet 40 MG PO (09:49)
[2020-09-12] MEDS: Tamsulosin HCl 0.4 MG Capsule 0.8 MG PO (09:49)
[2020-09-12] MEDS: Metoprolol(XL)Succ 50 MG Tablet PO (09:50)
[2020-09-12] MEDS: Docusate Sodium 100 MG Capsule PO ×2 (09:50→21:24)
[2020-09-12] MEDS: Amiodarone 200 MG Tablet PO (09:54)
[2020-09-12] MEDS: Furosemide 40 MG Tablet PO ×2 (09:56→16:53)
[2020-09-12] MEDS: Pantoprazole Sodium 20 MG Tablet PO ×2 (09:57→21:25)
[2020-09-12] MEDS: Finasteride 5 MG Tablet PO (09:58)
[2020-09-12] MEDS: Senna Tablet 1 TABLET PO (09:59)
[2020-09-12] MEDS: Nystatin Ointment 1 APPLIC TOPICAL ×2 (10:01→21:25)
[2020-09-12 11:40] LABS: Bedside Glucose 296 mg/dL (70-110)
[2020-09-12 13:11] LABS: Partial Thromboplast Time 55.1 Seconds (24.1-36.2)
--- NOTE | 2020-09-12 17:03 | PCM.PN.HOSP ---
Patient Problems: Active and Suspected Problems Hyperkalemia (Acute) Supratherapeutic INR (Acute) Gross hematuria (Acute) Reason for Visit: Follow-up on gross hematuria/mechanical valve disease/acute on chronic CHF Subjective: Patient was seen and examined. He continues to have hemoptysis, smaller in size. He continues to have tea colored?pink-colored urine. Objective: Physical exam: General: Alert, Cooperative, No apparent distress, Well developed, Well nourished, on 3 L of oxygen HEENT: Atraumatic, PERRLA, EOMI, Normocephalic Oral: Moist Mucosa Neck: Supple, No JVD, Trachea Midline, Thyroid Normal Size and Texture Lungs: Clear to auscultation, Normal air movement, No rhonchi, No wheeze, No rales Cardiovascular: Normal S1, Normal S2, PMI Normal, Irregular Rate, No rub noted, No Gallop, - - Mechanical click noted at the apex Abdomen: Bowel Sounds Present, Soft, Non Tender, Non-Distended Extremities: No clubbing, No cyanosis, No edema, Capillary Refill Less than 3 Seconds Skin: No rashes, No breakdown Musculoskeletal: No Tenderness to Palpation of Joints or Extremities Neurological: Cranial nerves II-XII grossly intact, Neuro grossly intact, Sensory exam intact to light touch and pain, Coordination normal Psych/Mental Status: - - Patient is alert and answers simple questions appropriately Vitals/I&O's: Vital Signs Temp Pulse Resp BP Pulse Ox 97.8 F 85 18 103/47 L 93 09/12/20 09:30 09/12/20 14:58 09/12/20 14:58 09/12/20 09:30 09/12/20 11:09 Oxygen Flow Rate (L/min) 3 Oxygen Delivery Method Nasal Cannula Weight: 89.04 kg Body Mass Index (BMI) 29.8 Finger Stick Blood Glucose 188 Intake and Output for Last 24 Hours 09/10/20 09/11/20 09/12/20 23:59 23:59 23:59 Intake Total 693.67 / 873.67 57.2 / 57.2 Output Total 300 / 300 Balance 393.67 / 573.67 2099. 57.2 / 57.2 Laboratory Results 09/11/20 21:53: POC Glucose 288 H 09/11/20 22:09: APTT 82.4 H 09/12/20 00:10: Hgb 8.4 L, Hct 26.7 L 09/12/20 06:08: PT 18.8 H, INR 1.6 09/12/20 06:08: APTT 41.4 H 09/12/20 06:32: POC Glucose 216 H 09/12/20 07:30: WBC 7.9, RBC 2.87 L, Hgb 9.5 L, Hct 29.0 L, MCV 101.0 H D, MCH 33.1 H, MCHC 32.8 D, RDW Std Deviation 51.9 H, RDW Coeff of Yessi 17.2 H, Plt Count 167, MPV 11.4, Immature Gran % (Auto) 0.500, Neut % (Auto) 83.4 H, Lymph % (Auto) 7.3 L, [place] % (Auto) 8.3, Eos % (Auto) 0.4, Baso % (Auto) 0.1, Absolute Neuts (auto) 6.6, Absolute Lymphs (auto) 0.57 L, Nucleated RBC % 0, Platelet Estimate ADEQUATE, Hypochromasia 1+, Schistocytes RARE 09/12/20 07:30: Sodium 132 L, Potassium 4.3, Chloride 106, Carbon Dioxide 21.0, Anion Gap 5, BUN 41 H, Creatinine 1.79 H, Estim Creat Clear Calc 32.37, Est GFR (MDRD) Af Amer 47 L, Est GFR (MDRD) Non-Af 39 L, BUN/Creatinine Ratio 22.9 H, Glucose 145 H, Calcium 8.5, Total Bilirubin 1.60 H, AST 33, ALT 46, Alkaline Phosphatase 71, Total Protein 6.4, Albumin 2.0 L, Globulin 4.4 H, Albumin/Globulin Ratio 0.5 L 09/12/20 11:13: POC Glucose 296 H 09/12/20 12:53: APTT 55.1 H Current Medications Acetaminophen (Acetaminophen 325 Mg Tablet) 325 mg PO Q4H PRN PRN PRN Reason: Pain Score 1-10 Last Admin: 09/05/20 08:44 Dose: 325 mg Documented by: Al Hydroxide/Mg Hydroxide (Mag Hydrox/Al Hydrox/Simeth 30 Ml Udc) 30 ml PO Q4H PRN PRN PRN Reason: gi distress Last Admin: 09/08/20 01:08 Dose: 30 ml Documented by: Albuterol Sulfate (Albuterol 2.5 Mg/3 Ml Vial.Neb.) 2.5 mg INHALATION Q4H PRN PRN Reason: Wheezing Last Admin: 09/08/20 23:52 Dose: 2.5 mg Documented by: Albuterol/Ipratropium (Ipratropium/Albuterol Sulfate 3 Ml Ampul.Neb) 3 ml INHALATION Q4H.RT [facility] Last Admin: 09/12/20 14:58 Dose: 3 ml Documented by: Allopurinol (Allopurinol 100 Mg Tablet) 100 mg PO DAILYCM [facility] Last Admin: 09/08/20 09:08 Dose: 100 mg Documented by: Amiodarone HCl (Amiodarone 200 Mg Tablet) 200 mg PO DAILY [facility] Last Admin: 09/12/20 09:54 Dose: 200 mg Documented by: Atorvastatin Calcium (Atorvastatin Calcium 80 Mg Tablet) 80 mg PO QHS [facility] Last Admin: 09/11/20 20:59 Dose: 80 mg Documented by: Dextrose (Dextrose 50%-Water 25 Gm/50 Ml Disp.Syrin) 0 gm IV X1 PRN; Protocol PRN Reason: Hypoglycemia Docusate Sodium (Docusate Sodium 100 Mg Capsule) 100 mg PO BID [facility] Last Admin: 09/12/20 09:50 Dose: 100 mg Documented by: Finasteride (Finasteride 5 Mg Tablet) 5 mg PO DAILY [facility] Last Admin: 09/12/20 09:58 Dose: 5 mg Documented by: Furosemide (Furosemide 40 Mg Tablet) 40 mg PO BID@1000,1800 [facility] Last Admin: 09/12/20 16:53 Dose: 40 mg Documented by: Glucagon (Glucagon 1 Mg/Ml Syringe) 1 mg IM .X1 PRN PRN Reason: Hypoglycemia Heparin Sodium (Porcine) (Heparin Injection (Vial) 5,000 Unit/Ml Vial) 0 unit IV UD PRN; Protocol PRN Reason: dose adjustment Last Admin: 09/10/20 18:56 Dose: 1,000 unit Documented by: Hydrocortisone Acetate (Hydrocortisone 25 Mg Suppository) 25 mg RC TID PRN PRN PRN Reason: Rectal Discomfort Last Admin: 09/11/20 02:49 Dose: 25 mg Documented by: Sodium Chloride () 250 mls @ 15 mls/hr IV .[id number] PRN PRN Reason: Saline Flush Last Infusion: 09/08/20 18:56 Dose: Infused Documented by: Sodium Chloride () 250 mls @ 15 mls/hr IV .[id number] PRN PRN Reason: Additional IVPB Infusion Heparin Sodium/Dextrose () 25,000 units in 250 mls @ 8 mls/hr IV .[id number] [facility]; Protocol Last Titration: 09/12/20 07:10 Dose: 900 units/hr, 9 mls/hr Documented by: Insulin Glargine (Insulin Glargine 100 Units/Ml Pen) 18 units SC QHS [facility] Last Admin: 09/11/20 21:54 Dose: 18 units Documented by: Insulin Human Lispro (Insulin Lispro 100 Unit/Ml Insuln.Pen) 0 unit SC ACHS [facility]; Protocol Last Admin: 09/12/20 16:51 Dose: 3 units Documented by: Levothyroxine Sodium (Levothyroxine 50 Mcg Tablet) 50 mcg PO DAILY@0600 [facility] Last Admin: 09/12/20 04:25 Dose: 50 mcg Documented by: Magnesium Hydroxide (Magnesium Hydroxide 30 Ml Udc) 30 ml PO DAILY PRN PRN PRN Reason: CONSTIPATION Last Admin: 09/11/20 08:57 Dose: 30 ml Documented by: Metoprolol Succinate (Metoprolol(Xl)Succ 50 Mg Tablet) 50 mg PO DAILY [facility] Last Admin: 09/12/20 09:50 Dose: 50 mg Documented by: Nitroglycerin (Nitroglycerin (Inpatient Use) 0.4 Mg Tab.Subl) 0.4 mg SUBLINGUAL Q5M PRN PRN Reason: Angina Nystatin (Nystatin Ointment) 1 applic TOPICAL BID [facility]; Protocol Last Admin: 09/12/20 10:01 Dose: 1 applicatio Documented by: Oxycodone HCl (Oxycodone 5 Mg Tablet) 5 mg PO Q4H PRN PRN PRN Reason: Pain Score 1-10 Last Admin: 09/01/20 22:17 Dose: 5 mg Documented by: Pantoprazole Sodium (Pantoprazole Sodium 20 Mg Tablet) 20 mg PO BID [facility] Last Admin: 09/12/20 09:57 Dose: 20 mg Documented by: Prednisone (Prednisone 20 Mg Tablet) 40 mg PO DAILY@0800 [facility] Stop: 09/15/20 08:01 Last Admin: 09/12/20 09:49 Dose: 40 mg Documented by: Senna (Senna Tablet) 1 tablet PO DAILY [facility] Last Admin: 09/12/20 09:59 Dose: 1 tablet Documented by: Sodium Chloride (0.9% Saline Lock 10 Ml Syringe) 10 - 40 ml IV UD PRN PRN Reason: SALINE FLUSH Last Admin: 09/12/20 04:22 Dose: 10 ml Documented by: Tamsulosin HCl (Tamsulosin Hcl 0.4 Mg Capsule) 0.8 mg PO DAILY@0830 [facility] Last Admin: 09/12/20 09:49 Dose: 0.8 mg Documented by: STROKE Vital Signs/Narrative: Vital Signs Pulse Resp 09/12/20 14:58 85 18 Medical Necessity - Tobacco Use Smoking Status: Former smoker Tobacco Use: Non-smoker Assessment/Plan All Active Problems Hyperkalemia (Acute) GI bleed (Resolved) Supratherapeutic INR (Acute) Gross hematuria (Acute) Anticoagulation goal of INR 2.5 to 3.5 (Acute) Facial droop (Resolved) 1. Acute COPD exacerbation, mild, improved Continue on a short course of prednisone 40 mg daily x5, continue breathing treatments 2. Acute on chronic heart failure with reduced EF, EF of 30%, remains about the same Hemoptysis is likely from pulmonary edema Continue Lasix 40 mg p.o. daily, continue with strict CHF protocol with fluid restriction, AL wraps to lower extremities Repeat renal function in a.m. 3. Acute on chronic hypoxic respiratory failure secondary to acute CHF/history of COPD Continue on 3 L of oxygen, will continue to monitor 4. Gross hematuria for cystoscopy with evacuation of blood clots, TURP 09/04/20, with ongoing slight hematuria 5. Acute blood loss anemia secondary to hematuria, status post 3 units of packed RBCs, H&H today is 9.5 Transfuse when hemoglobin is less than 7 6. Mechanical aortic heart valve/chronic atrial fibrillation/CAD status post stent in March 2020/hypertension Status post FFP's for supratherapeutic INR 4.1 on 09/01/20 INR is currently 1.6, continue on heparin drip, aspirin, statin, metoprolol, warfarin 5 mg daily for now, repeat INR in a.m. 7. Type II DM, sugars are better controlled, Continue Lantus to 18 units daily with insulin sliding scale 8. Hypothyroidism, continue on synthroid 9. HUONG on CKD stage IV, baseline creatinine 1.3-1.6 Creatinine currently 2.87, nephrology consulted, following Repeat blood work in a.m. 10. DVT prophylaxis?on heparin drip and coumadin Inpatient E&M: [id number] [facility] Hosp L3
[2020-09-12 17:20] LABS: Bedside Glucose 364 mg/dL (70-110)
[2020-09-12 19:57] LABS: Partial Thromboplast Time 59.3 Seconds (24.1-36.2)
[2020-09-12] MEDS: Atorvastatin Calcium 80 MG Tablet PO (21:25)
[2020-09-12] MEDS: Insulin Lispro 100 UNIT/ML INSULN.PEN 8 UNIT SC (21:32)
[2020-09-12 22:01] LABS: Bedside Glucose 470 mg/dL (70-110)
[2020-09-12 22:52] LABS: Glucose 403 mg/dL (74-106)
[2020-09-13] VITALS (16 sets, daily range): BP systolic 101–116; BP diastolic 56–90; PULSE 56–83; RESP 16–24; TEMP 36.4–36.9; O2SAT 89–96
[2020-09-13 01:49] LABS: Partial Thromboplast Time 54.9 Seconds (24.1-36.2)
[2020-09-13 01:52] LABS: International Normalized Ratio 1.9; Prothrombin Time (Protime)PT. 21.6 SECONDS (11.7-14.9)
[2020-09-13 01:58] LABS: Albumin, Serum 2.8 g/dL (3.2-5.0); BUN 95 mg/dL (7-18); BUN/Creat Ratio 29.4 RATIO (10-20); Calcium,Total 9.6 mg/dL (8.5-10.1); Chloride 93 mmol/L (98-107); Creatinine, Serum 3.23 mg/dL (0.70-1.30); EST Glomerular Filtration Rate 20 mL/min (>60); Est Glom Filt Rate - Afr Amer 24 mL/min (>60); Estimated Creatinine Clearance 17.94 ml/min; Glucose 236 mg/dL (74-106); Phosphorus 5.4 mg/dL (2.5-4.9); Potassium 4.3 mmol/L (3.5-5.1); Sodium Level 130 mmol/L (136-145)
[2020-09-13] MEDS: HEPARIN/D5w 25,000 UNITS 25,000 UNITS/250 ML IV.SOLN. 10 UNITS IV (04:50)
[2020-09-13] MEDS: Levothyroxine 50 MCG Tablet PO (04:52)
[2020-09-13] MEDS: Insulin Lispro 100 UNIT/ML INSULN.PEN SC ×4 (06:44→22:41)
[2020-09-13 06:46] LABS: Bedside Glucose 196 mg/dL (70-110)
[2020-09-13] MEDS: Ipratropium/Albuterol Sulfate 3 ML AMPUL.NEB INHALATION ×5 (06:50→23:19)
[2020-09-13 07:55] LABS: Absolute Lymphocyte Count 1.18 X10^3/uL (0.83-4.51); Absolute Neutrophil Count 9.1 X10^3/uL (2.0-7.7); Hematocrit 26.7 % (40-54); Hemoglobin 8.1 g/dL (13.0-16.5); Lymphocyte # 1.18 X10^3/ul (4.0); Lymphocyte % 10.2 % (19-41); Mean Corp Hgb Conc 30.3 g/dL (32-36); Mean Corpuscular Hgb 26.8 pg (27.0-32.0); Mean Corpuscular Volume 88.4 fL (80-94); Mean Platelet Vol. 10.7 fl (6.2-12.0); Monocyte# 1.17 X10^3/uL; Monocyte% 10.1 % (0-10); NRBC Flagged by Analyzer 0 % (0-5); Neutrophil # 9.13 X10^3/uL (2.7-7.7); Neutrophil % 79.3 % (47-70); Platelet Count 195 K/mm3 (150-450); RBC Distribution Width SD 54.7 fl (35.1-43.9); Red Blood Count 3.02 M/mm3 (4.6-6.2); White Blood Count 11.5 K/mm3 (4.4-11.0)
[2020-09-13] MEDS: Nystatin Ointment 1 APPLIC TOPICAL ×2 (08:18→22:42)
[2020-09-13] MEDS: Acetaminophen 325 MG Tablet PO ×2 (08:18→20:21)
[2020-09-13] MEDS: Finasteride 5 MG Tablet PO (08:19)
[2020-09-13] MEDS: Metoprolol(XL)Succ 50 MG Tablet PO (08:19)
[2020-09-13] MEDS: Docusate Sodium 100 MG Capsule PO ×2 (08:19→22:39)
[2020-09-13] MEDS: Pantoprazole Sodium 20 MG Tablet PO ×2 (08:19→22:39)
[2020-09-13] MEDS: Senna Tablet 1 TABLET PO (08:19)
[2020-09-13] MEDS: Tamsulosin HCl 0.4 MG Capsule 0.8 MG PO (08:19)
[2020-09-13] MEDS: Amiodarone 200 MG Tablet PO (08:19)
[2020-09-13] MEDS: Furosemide 40 MG Tablet PO (08:19)
[2020-09-13] MEDS: predniSONE 20 MG Tablet 40 MG PO (08:19)
--- NOTE | 2020-09-13 08:21 | PCM.PN.PUL ---
Patient Problems: Active and Suspected Problems Hyperkalemia (Acute) Supratherapeutic INR (Acute) Gross hematuria (Acute) Subjective: Patient reports he did well overnight. However, patient was noted to have significant hyperglycemia requiring early lab work. Patient responded to intervention. Patient is reporting subjective improvement today compared to yesterday. Hemoptysis continues to improve. - Physical Exam Vitals/I&O's: Vital Signs Temp Pulse Resp BP Pulse Ox 36.5 C L 66 18 116/90 H 94 09/13/20 08:03 09/13/20 08:19 09/13/20 08:03 09/13/20 08:03 09/13/20 08:03 Oxygen Flow Rate (L/min) 2 Oxygen Delivery Method Nasal Cannula Weight: 89.04 kg Body Mass Index (BMI) 29.8 Finger Stick Blood Glucose 188 Intake and Output for Last 24 Hours 09/11/20 09/12/20 09/13/20 23:59 23:59 23:59 Intake Total 2100.00 / 2100.00 57.2 / 57.2 171.98 / 171.98 Balance 2100.00 / 2100.00 57.2 / 57.2 171.98 / 171.98 General: Alert, Oriented x3, Cooperative, No apparent distress, - - No conversational dyspnea HEENT: Atraumatic, PERRLA, EOMI, Normocephalic, - - No scleral injection or icterus Oral: Moist Mucosa, No Gingival or Mucosal Lesions/ Ulcerations Neck: Supple, No JVD, No Nodes, Trachea Midline Lungs: No rhonchi, No wheeze, No rales, Diminished Cardiovascular: Normal S1, Normal S2, No murmurs, Irregular Rate, - - Mechanical heart sound Abdomen: Bowel Sounds Present, Soft, Non Tender, Non-Distended Extremities: No cyanosis, Clubbing Skin: - - No change compared to previous Musculoskeletal: No Tenderness to Palpation of Joints or Extremities Lymphatic: No Cervical, Supraclavicular, or Inguinal Adenopathy Neurological: Cranial nerves II-XII grossly intact, Neuro grossly intact, Motor Exam 5/5 strength throughout Psych/Mental Status: Alert and oriented to time, place, person, mood and affect Laboratory Results 09/12/20 07:30: WBC 7.9, RBC 2.87 L, Hgb 9.5 L, Hct 29.0 L, MCV 101.0 H D, MCH 33.1 H, MCHC 32.8 D, RDW Std Deviation 51.9 H, RDW Coeff of Yessi 17.2 H, Plt Count 167, MPV 11.4, Immature Gran % (Auto) 0.500, Neut % (Auto) 83.4 H, Lymph % (Auto) 7.3 L, [place] % (Auto) 8.3, Eos % (Auto) 0.4, Baso % (Auto) 0.1, Absolute Neuts (auto) 6.6, Absolute Lymphs (auto) 0.57 L, Nucleated RBC % 0, Platelet Estimate ADEQUATE, Hypochromasia 1+, Schistocytes RARE 09/12/20 07:30: Sodium 132 L, Potassium 4.3, Chloride 106, Carbon Dioxide 21.0, Anion Gap 5, BUN 41 H, Creatinine 1.79 H, Estim Creat Clear Calc 32.37, Est GFR (MDRD) Af Amer 47 L, Est GFR (MDRD) Non-Af 39 L, BUN/Creatinine Ratio 22.9 H, Glucose 145 H, Calcium 8.5, Total Bilirubin 1.60 H, AST 33, ALT 46, Alkaline Phosphatase 71, Total Protein 6.4, Albumin 2.0 L, Globulin 4.4 H, Albumin/Globulin Ratio 0.5 L 09/12/20 11:13: POC Glucose 296 H 09/12/20 12:53: APTT 55.1 H 09/12/20 16:49: POC Glucose 364 H 09/12/20 19:21: APTT 59.3 H 09/12/20 21:15: POC Glucose 470 H* 09/12/20 21:42: Glucose 403 H 09/13/20 01:30: PT 21.6 H, INR 1.9 09/13/20 01:30: Sodium 130 L, Potassium 4.3, Chloride 93 L, Carbon Dioxide 26.0, BUN 95 H, Creatinine 3.23 H, Estim Creat Clear Calc 17.94, Est GFR (MDRD) Af Amer 24 L, Est GFR (MDRD) Non-Af 20 L, BUN/Creatinine Ratio 29.4 H, Glucose 236 H, Calcium 9.6, Phosphorus 5.4 H, Albumin 2.8 L 09/13/20 01:30: APTT 54.9 H 09/13/20 06:41: POC Glucose 196 H 09/13/20 07:18: APTT Pending 09/13/20 07:18: WBC 11.5 H, RBC 3.02 L, Hgb 8.1 L, Hct 26.7 L, MCV 88.4 D, MCH 26.8 L, MCHC 30.3 L D, RDW Std Deviation 54.7 H, RDW Coeff of Yessi 17.0 H, Plt Count 195, MPV 10.7, Immature Gran % (Auto) 0.400, Neut % (Auto) 79.3 H, Lymph % (Auto) 10.2 L, [place] % (Auto) 10.1 H, Eos % (Auto) 0.0, Baso % (Auto) 0.0, Absolute Neuts (auto) 9.1 H, Absolute Lymphs (auto) 1.18, Nucleated RBC % 0 Current Medications Acetaminophen (Acetaminophen 325 Mg Tablet) 325 mg PO Q4H PRN PRN PRN Reason: Pain Score 1-10 Last Admin: 09/13/20 08:18 Dose: 325 mg Documented by: Al Hydroxide/Mg Hydroxide (Mag Hydrox/Al Hydrox/Simeth 30 Ml Udc) 30 ml PO Q4H PRN PRN PRN Reason: gi distress Last Admin: 09/08/20 01:08 Dose: 30 ml Documented by: Albuterol Sulfate (Albuterol 2.5 Mg/3 Ml Vial.Neb.) 2.5 mg INHALATION Q4H PRN PRN Reason: Wheezing Last Admin: 09/08/20 23:52 Dose: 2.5 mg Documented by: Albuterol/Ipratropium (Ipratropium/Albuterol Sulfate 3 Ml Ampul.Neb) 3 ml INHALATION Q4H.RT [facility] Last Admin: 09/13/20 06:50 Dose: 3 ml Documented by: Allopurinol ([facility] 100 Mg Tablet) [facility] Last Admin: 09/08/20 09:08 Dose: 100 mg Documented by: Amiodarone HCl (Amiodarone 200 Mg Tablet) 200 mg PO DAILY [facility] Last Admin: 09/13/20 08:19 Dose: 200 mg Documented by: Atorvastatin Calcium (Atorvastatin Calcium 80 Mg Tablet) 80 mg PO QHS [facility] Last Admin: 09/12/20 21:25 Dose: 80 mg Documented by: Dextrose (Dextrose 50%-Water 25 Gm/50 Ml Disp.Syrin) 0 gm IV X1 PRN; Protocol PRN Reason: Hypoglycemia Docusate Sodium (Docusate Sodium 100 Mg Capsule) 100 mg PO BID [facility] Last Admin: 09/13/20 08:19 Dose: 100 mg Documented by: Finasteride (Finasteride 5 Mg Tablet) 5 mg PO DAILY [facility] Last Admin: 09/13/20 08:19 Dose: 5 mg Documented by: Furosemide (Furosemide 40 Mg Tablet) 40 mg PO BID@1000,1800 [facility] Last Admin: 09/13/20 08:19 Dose: 40 mg Documented by: Glucagon (Glucagon 1 Mg/Ml Syringe) 1 mg IM .X1 PRN PRN Reason: Hypoglycemia Heparin Sodium (Porcine) (Heparin Injection (Vial) 5,000 Unit/Ml Vial) 0 unit IV UD PRN; Protocol PRN Reason: dose adjustment Last Admin: 09/10/20 18:56 Dose: 1,000 unit Documented by: Hydrocortisone Acetate (Hydrocortisone 25 Mg Suppository) 25 mg RC TID PRN PRN PRN Reason: Rectal Discomfort Last Admin: 09/11/20 02:49 Dose: 25 mg Documented by: Sodium Chloride () 250 mls @ 15 mls/hr IV .[id number] PRN PRN Reason: Saline Flush Last Infusion: 09/08/20 18:56 Dose: Infused Documented by: Sodium Chloride () 250 mls @ 15 mls/hr IV .[id number] PRN PRN Reason: Additional IVPB Infusion Heparin Sodium/Dextrose () 25,000 units in 250 mls @ 8 mls/hr IV .[id number] [facility]; Protocol Last Admin: 09/13/20 04:50 Dose: 1,000 units/hr, 10 mls/hr Documented by: Insulin Glargine (Insulin Glargine 100 Units/Ml Pen) 18 units SC QHS [facility] Last Admin: 09/12/20 21:24 Dose: 18 units Documented by: Insulin Human Lispro (Insulin Lispro 100 Unit/Ml Insuln.Pen) 0 unit SC ACHS [facility]; Protocol Last Admin: 09/13/20 06:44 Dose: 2 u Documented by: Levothyroxine Sodium (Levothyroxine 50 Mcg Tablet) 50 mcg PO DAILY@0600 [facility] Last Admin: 09/13/20 04:52 Dose: 50 mcg Documented by: Magnesium Hydroxide (Magnesium Hydroxide 30 Ml Udc) 30 ml PO DAILY PRN PRN PRN Reason: CONSTIPATION Last Admin: 09/11/20 08:57 Dose: 30 ml Documented by: Metoprolol Succinate (Metoprolol(Xl)Succ 50 Mg Tablet) 50 mg PO DAILY [facility] Last Admin: 09/13/20 08:19 Dose: 50 mg Documented by: Nitroglycerin (Nitroglycerin (Inpatient Use) 0.4 Mg Tab.Subl) 0.4 mg SUBLINGUAL Q5M PRN PRN Reason: Angina Nystatin (Nystatin Ointment) 1 applic TOPICAL BID [facility]; Protocol Last Admin: 09/13/20 08:18 Dose: 1 applicatio Documented by: Oxycodone HCl (Oxycodone 5 Mg Tablet) 5 mg PO Q4H PRN PRN PRN Reason: Pain Score 1-10 Last Admin: 09/01/20 22:17 Dose: 5 mg Documented by: Pantoprazole Sodium (Pantoprazole Sodium 20 Mg Tablet) 20 mg PO BID [facility] Last Admin: 09/13/20 08:19 Dose: 20 mg Documented by: Prednisone (Prednisone 20 Mg Tablet) 40 mg PO DAILY@0800 [facility] Stop: 09/15/20 08:01 Last Admin: 09/13/20 08:19 Dose: 40 mg Documented by: Senna (Senna Tablet) 1 tablet PO DAILY [facility] Last Admin: 09/13/20 08:19 Dose: 1 tablet Documented by: Sodium Chloride (0.9% Saline Lock 10 Ml Syringe) 10 - 40 ml IV UD PRN PRN Reason: SALINE FLUSH Last Admin: 09/12/20 04:22 Dose: 10 ml Documented by: Tamsulosin HCl (Tamsulosin Hcl 0.4 Mg Capsule) 0.8 mg PO DAILY@0830 [facility] Last Admin: 09/13/20 08:19 Dose: 0.8 mg Documented by: Medical Necessity - Tobacco Use Smoking Status: Former smoker Tobacco Use: Non-smoker Assessment/Plan All Active Problems Hyperkalemia (Acute) GI bleed (Resolved) Supratherapeutic INR (Acute) Gross hematuria (Acute) Anticoagulation goal of INR 2.5 to 3.5 (Acute) Facial droop (Resolved) RECOMMENDATIONS: 1. Could consider thoracentesis (diagnostic and therapeutic) to assist with respiratory status 2. Consider decrease Lasix therapy 3. May hold anticoagulation for intervention 4. No indication from a pulmonary perspective for transfer to a tertiary center 5. No plans for bronchoscopy at this time 6. Patient would have to be evaluated for bronchial artery coiling if worsens IMPRESSIONS: 1. Hemoptysis Unclear etiology. Patient does require anticoagulation secondary to mechanical heart valve. 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 This appears to be improving at this time. No indication for bronchoscopy from my perspective. If hemoptysis were to get worse, bronchial artery embolization would be the appropriate action. Given the calcinosis, bleeding could be coming from anywhere in the bronchial tree. Patient does have some mediastinal lymphadenopathy, but no masses are appreciated. 2. Bilateral pleural effusion/acute hypoxic respiratory insufficiency Given congestive heart failure, clinical suspicion for transudate physiology. Unclear if this has been tapped previously. Could obtain a diagnostic and therapeutic thoracentesis prior to initiation of chronic anticoagulation if not done previously. Otherwise, patient is requiring only minimal nasal cannula oxygen at this time and would benefit from diuresis. If patient's renal function precludes further diuresis, thoracentesis would be indicated. Defer to hospitalist on timing. 3. Acute blood loss anemia/mechanical heart valve/chronic A. fib/CAD/diabetes mellitus type 2/HUONG on CKD stage IV Complicates care, management, recovery and prognosis. Patient is having hemoptysis, but this would not account for patient's need for 3 units of packed red blood cells. Clinical suspicion patient has chronic hypoxia given clubbing on exam. Continue to monitor blood sugars closely. Significant worsening in renal function. Could proceed with a thoracentesis to address hypoxia, but clinical suspicion for transudate etiology. Inpatient E&M: 49435 Subs Hosp L2
[2020-09-13 08:36] LABS: Partial Thromboplast Time 61.3 Seconds (24.1-36.2)
[2020-09-13 11:21] LABS: Bedside Glucose 216 mg/dL (70-110)
[2020-09-13 14:48] LABS: Partial Thromboplast Time 51.6 Seconds (24.1-36.2)
--- NOTE | 2020-09-13 15:13 | PCM.PN.HOSP ---
Patient Problems: Active and Suspected Problems Hyperkalemia (Acute) Supratherapeutic INR (Acute) Gross hematuria (Acute) Reason for Visit: Follow-up on gross hematuria/mechanical valve disease/acute on chronic CHF Subjective: Patient was seen and examined. No acute events overnight. Continues to have some hemoptysis. His urine is dark/tea colored. Objective: Physical exam: General: Alert, Cooperative, No apparent distress, Well developed, Well nourished, on 3 L of oxygen HEENT: Atraumatic, PERRLA, EOMI, Normocephalic Oral: Moist Mucosa Neck: Supple, No JVD, Trachea Midline, Thyroid Normal Size and Texture Lungs: Clear to auscultation, Normal air movement, No rhonchi, No wheeze, No rales Cardiovascular: Normal S1, Normal S2, PMI Normal, Irregular Rate, No rub noted, No Gallop, - - Mechanical click noted at the apex Abdomen: Bowel Sounds Present, Soft, Non Tender, Non-Distended Extremities: No clubbing, No cyanosis, No edema, Capillary Refill Less than 3 Seconds Skin: No rashes, No breakdown Musculoskeletal: No Tenderness to Palpation of Joints or Extremities Neurological: Cranial nerves II-XII grossly intact, Neuro grossly intact, Sensory exam intact to light touch and pain, Coordination normal Psych/Mental Status: - - Patient is alert and answers simple questions appropriately Vitals/I&O's: Vital Signs Temp Pulse Resp BP Pulse Ox 97.5 F L 65 18 101/56 L 94 09/13/20 12:00 09/13/20 15:01 09/13/20 12:00 09/13/20 12:00 09/13/20 12:00 Oxygen Flow Rate (L/min) 3 Oxygen Delivery Method Nasal Cannula Weight: 89.04 kg Body Mass Index (BMI) 29.8 Finger Stick Blood Glucose 188 Intake and Output for Last 24 Hours 09/11/20 09/12/20 09/13/20 23:59 23:59 23:59 Intake Total 2099. / 2099. 57.2 / 57.2 605.98 / 605.98 Balance 2099. 57.2 / 57.2 605.98 / 605.98 Laboratory Results 09/12/20 16:49: POC Glucose 364 H 09/12/20 19:21: APTT 59.3 H 09/12/20 21:15: POC Glucose 470 H* 09/12/20 21:42: Glucose 403 H 09/13/20 01:30: PT 21.6 H, INR 1.9 09/13/20 01:30: Sodium 130 L, Potassium 4.3, Chloride 93 L, Carbon Dioxide 26.0, BUN 95 H, Creatinine 3.23 H, Estim Creat Clear Calc 17.94, Est GFR (MDRD) Af Amer 24 L, Est GFR (MDRD) Non-Af 20 L, BUN/Creatinine Ratio 29.4 H, Glucose 236 H, Calcium 9.6, Phosphorus 5.4 H, Albumin 2.8 L 09/13/20 01:30: APTT 54.9 H 09/13/20 06:41: POC Glucose 196 H 09/13/20 07:18: APTT 61.3 H 09/13/20 07:18: WBC 11.5 H, RBC 3.02 L, Hgb 8.1 L, Hct 26.7 L, MCV 88.4 D, MCH 26.8 L, MCHC 30.3 L D, RDW Std Deviation 54.7 H, RDW Coeff of Yessi 17.0 H, Plt Count 195, MPV 10.7, Immature Gran % (Auto) 0.400, Neut % (Auto) 79.3 H, Lymph % (Auto) 10.2 L, [place] % (Auto) 10.1 H, Eos % (Auto) 0.0, Baso % (Auto) 0.0, Absolute Neuts (auto) 9.1 H, Absolute Lymphs (auto) 1.18, Nucleated RBC % 0 09/13/20 11:11: POC Glucose 216 H 09/13/20 14:30: APTT 51.6 H Current Medications Acetaminophen (Acetaminophen 325 Mg Tablet) 325 mg PO Q6H PRN PRN PRN Reason: PAIN 1-10 Al Hydroxide/Mg Hydroxide (Mag Hydrox/Al Hydrox/Simeth 30 Ml Udc) 30 ml PO Q4H PRN PRN PRN Reason: gi distress Last Admin: 09/08/20 01:08 Dose: 30 ml Documented by: Albuterol Sulfate (Albuterol 2.5 Mg/3 Ml Vial.Neb.) 2.5 mg INHALATION Q4H PRN PRN Reason: Wheezing Last Admin: 09/08/20 23:52 Dose: 2.5 mg Documented by: Albuterol/Ipratropium (Ipratropium/Albuterol Sulfate 3 Ml Ampul.Neb) 3 ml INHALATION Q4H.RT [facility] Last Admin: 09/13/20 14:49 Dose: 3 ml Documented by: Allopurinol (Allopurinol 100 Mg Tablet) 100 mg PO DAILYCM [facility] Last Admin: 09/08/20 09:08 Dose: 100 mg Documented by: Amiodarone HCl (Amiodarone 200 Mg Tablet) 200 mg PO DAILY [facility] Last Admin: 09/13/20 08:19 Dose: 200 mg Documented by: Atorvastatin Calcium (Atorvastatin Calcium 80 Mg Tablet) 80 mg PO QHS [facility] Last Admin: 09/12/20 21:25 Dose: 80 mg Documented by: Dextrose (Dextrose 50%-Water 25 Gm/50 Ml Disp.Syrin) 0 gm IV X1 PRN; Protocol PRN Reason: Hypoglycemia Docusate Sodium (Docusate Sodium 100 Mg Capsule) 100 mg PO BID [facility] Last Admin: 09/13/20 08:19 Dose: 100 mg Documented by: Finasteride (Finasteride 5 Mg Tablet) 5 mg PO DAILY [facility] Last Admin: 09/13/20 08:19 Dose: 5 mg Documented by: Glucagon (Glucagon 1 Mg/Ml Syringe) 1 mg IM .X1 PRN PRN Reason: Hypoglycemia Heparin Sodium (Porcine) (Heparin Injection (Vial) 5,000 Unit/Ml Vial) 0 unit IV UD PRN; Protocol PRN Reason: dose adjustment Last Admin: 09/10/20 18:56 Dose: 1,000 unit Documented by: Hydrocortisone Acetate (Hydrocortisone 25 Mg Suppository) 25 mg RC TID PRN PRN PRN Reason: Rectal Discomfort Last Admin: 09/11/20 02:49 Dose: 25 mg Documented by: Sodium Chloride () 250 mls @ 15 mls/hr IV .[id number] PRN PRN Reason: Saline Flush Last Infusion: 09/08/20 18:56 Dose: Infused Documented by: Sodium Chloride () 250 mls @ 15 mls/hr IV .[id number] PRN PRN Reason: Additional IVPB Infusion Heparin Sodium/Dextrose () 25,000 units in 250 mls @ 8 mls/hr IV .[id number] [facility]; Protocol Last Titration: 09/13/20 14:50 Dose: 1,000 units/hr, 10 mls/hr Documented by: Insulin Glargine (Insulin Glargine 100 Units/Ml Pen) 22 units SC QHS [facility] Insulin Human Lispro (Insulin Lispro 100 Unit/Ml Insuln.Pen) 0 unit SC ACHS [facility]; Protocol Last Admin: 09/13/20 11:12 Dose: 4 u Documented by: Levothyroxine Sodium (Levothyroxine 50 Mcg Tablet) 50 mcg PO DAILY@0600 [facility] Last Admin: 09/13/20 04:52 Dose: 50 mcg Documented by: Magnesium Hydroxide (Magnesium Hydroxide 30 Ml Udc) 30 ml PO DAILY PRN PRN PRN Reason: CONSTIPATION Last Admin: 09/11/20 08:57 Dose: 30 ml Documented by: Metoprolol Succinate (Metoprolol(Xl)Succ 50 Mg Tablet) 50 mg PO DAILY [facility] Last Admin: 09/13/20 08:19 Dose: 50 mg Documented by: Nitroglycerin (Nitroglycerin (Inpatient Use) 0.4 Mg Tab.Subl) 0.4 mg SUBLINGUAL Q5M PRN PRN Reason: Angina Nystatin (Nystatin Ointment) 1 applic TOPICAL BID [facility]; Protocol Last Admin: 09/13/20 08:18 Dose: 1 applicatio Documented by: Oxycodone HCl (Oxycodone 5 Mg Tablet) 5 mg PO Q4H PRN PRN PRN Reason: Pain Score 1-10 Last Admin: 09/01/20 22:17 Dose: 5 mg Documented by: Pantoprazole Sodium (Pantoprazole Sodium 20 Mg Tablet) 20 mg PO BID [facility] Last Admin: 09/13/20 08:19 Dose: 20 mg Documented by: Prednisone (Prednisone 20 Mg Tablet) 40 mg PO DAILY@0800 [facility] Stop: 09/15/20 08:01 Last Admin: 09/13/20 08:19 Dose: 40 mg Documented by: Senna (Senna Tablet) 1 tablet PO DAILY [facility] Last Admin: 09/13/20 08:19 Dose: 1 tablet Documented by: Sodium Chloride (0.9% Saline Lock 10 Ml Syringe) 10 - 40 ml IV UD PRN PRN Reason: SALINE FLUSH Last Admin: 09/12/20 04:22 Dose: 10 ml Documented by: Tamsulosin HCl (Tamsulosin Hcl 0.4 Mg Capsule) 0.8 mg PO DAILY@0830 [facility] Last Admin: 09/13/20 08:19 Dose: 0.8 mg Documented by: Warfarin Sodium (Warfarin 5 Mg Tablet) 5 mg PO X1 ONE Stop: 09/13/20 17:01 STROKE Vital Signs/Narrative: Vital Signs Temp Pulse Resp BP Pulse Ox 09/13/20 15:01 65 09/13/20 12:00 97.5 F L 65 18 101/56 L 94 Medical Necessity - Tobacco Use Smoking Status: Former smoker Tobacco Use: Non-smoker Assessment/Plan All Active Problems Hyperkalemia (Acute) GI bleed (Resolved) Supratherapeutic INR (Acute) Gross hematuria (Acute) Anticoagulation goal of INR 2.5 to 3.5 (Acute) Facial droop (Resolved) Summary: 80-year-old with past medical history of prostate enlargement who was admitted on 09/01/20 with gross hematuria. Patient has a mechanical aortic valve, EF 30% on 2d-ECHO. Underwent cystoscopy with evacuation of blood clots on 09/04/20. He is currently being bridged with heparin drip with goal INR of 3.0 because of his mechanical aortic valve. 1. Acute COPD exacerbation, mild, improved Continue on a short course of prednisone 40 mg daily x5(day 3 today) Continue breathing treatments 2. Acute on chronic heart failure with reduced EF, EF of 30%, remains about the same Hemoptysis is likely from pulmonary edema Hold Lasix 40 mg today on account of HUONG Continue with strict CHF protocol with fluid restriction, AL wraps to lower extremities Repeat renal function in a.m. 3. Acute on chronic hypoxic respiratory failure secondary to acute CHF/history of COPD CT chest on 09/10/20 showed findings consistent with CHF with moderate bilateral pleural effusion and atelectasis. Continue on 3 L of oxygen, will continue to monitor 4. Gross hematuria for cystoscopy with evacuation of blood clots, TURP 09/04/20, with ongoing slight hematuria 5. Acute blood loss anemia secondary to hematuria, status post 3 units of packed RBCs, H&H today is 8.1 Transfuse when hemoglobin is less than 7 6. Mechanical aortic heart valve/chronic atrial fibrillation/CAD status post stent in March 2020/hypertension Status post FFP's for supratherapeutic INR 4.1 on 09/01/20 INR is currently 1.9, continue on heparin drip, aspirin, statin, metoprolol, warfarin 6mg x1 tonight , repeat INR in a.m. 7. Type II DM, sugars are uncontrolled secondary to steroids Increase Lantus to 22 units daily with insulin sliding scale 8. Hypothyroidism, continue on synthroid 9. HUONG on CKD stage IV, baseline creatinine 1.3-1.6 Creatinine currently 3.23, nephrology consulted, following Repeat blood work in a.m. 10. DVT prophylaxis?on heparin drip and coumadin Inpatient E&M: [id number] Subs Hosp L2
--- NOTE | 2020-09-13 15:21 | CPS ---
pt refused instruction on pep therapy
[2020-09-13] MEDS: 0.9% Saline Lock 10 ML Syringe IV (16:29)
[2020-09-13 16:35] LABS: Bedside Glucose 240 mg/dL (70-110)
[2020-09-13 21:25] LABS: Partial Thromboplast Time 52.8 Seconds (24.1-36.2)
[2020-09-13] MEDS: Atorvastatin Calcium 80 MG Tablet PO (22:39)
[2020-09-13] MEDS: oxyCODONE 5 MG Tablet PO (22:39)
[2020-09-13 22:50] LABS: Bedside Glucose 335 mg/dL (70-110)
[2020-09-14] VITALS (11 sets, daily range): BP systolic 102–113; BP diastolic 58–78; PULSE 67–102; RESP 16–20; TEMP 36.6–36.7; O2SAT 96–100
[2020-09-14 04:42] LABS: Absolute Lymphocyte Count 1.49 X10^3/uL (0.83-4.51); Absolute Neutrophil Count 9.3 X10^3/uL (2.0-7.7); Basophil# 0.01 X10^3/uL; Basophil% 0.1 % (0-1); Hematocrit 26.1 % (40-54); Hemoglobin 8.1 g/dL (13.0-16.5); Lymphocyte # 1.49 X10^3/ul (4.0); Lymphocyte % 12.7 % (19-41); Mean Corpuscular Hgb 26.6 pg (27.0-32.0); Mean Corpuscular Volume 85.9 fL (80-94); Mean Platelet Vol. 10.4 fl (6.2-12.0); Monocyte# 0.88 X10^3/uL; Monocyte% 7.5 % (0-10); NRBC Flagged by Analyzer 0.2 % (0-5); Neutrophil # 9.25 X10^3/uL (2.7-7.7); Neutrophil % 79.2 % (47-70); Platelet Count 202 K/mm3 (150-450); RBC Distribution Width CV 17.1 % (11.6-14.6); Red Blood Count 3.04 M/mm3 (4.6-6.2); White Blood Count 11.7 K/mm3 (4.4-11.0)
[2020-09-14 04:51] LABS: International Normalized Ratio 2.3
[2020-09-14 04:53] LABS: Partial Thromboplast Time 82.1 Seconds (24.1-36.2)
[2020-09-14 05:25] LABS: Albumin, Serum 2.7 g/dL (3.2-5.0); BUN 95 mg/dL (7-18); BUN/Creat Ratio 34.7 RATIO (10-20); Calcium,Total 9.2 mg/dL (8.5-10.1); Chloride 97 mmol/L (98-107); Creatinine, Serum 2.74 mg/dL (0.70-1.30); EST Glomerular Filtration Rate 24 mL/min (>60); Est Glom Filt Rate - Afr Amer 29 mL/min (>60); Estimated Creatinine Clearance 21.15 ml/min; Glucose 236 mg/dL (74-106); Phosphorus 4.6 mg/dL (2.5-4.9); Potassium 4.1 mmol/L (3.5-5.1); Sodium Level 131 mmol/L (136-145)
[2020-09-14] MEDS: Levothyroxine 50 MCG Tablet PO (06:40)
[2020-09-14] MEDS: Insulin Lispro 100 UNIT/ML INSULN.PEN SC ×3 (06:40→15:59)
[2020-09-14] MEDS: Ipratropium/Albuterol Sulfate 3 ML AMPUL.NEB INHALATION ×2 (06:46→10:45)
[2020-09-14 07:00] LABS: Bedside Glucose 221 mg/dL (70-110)
[2020-09-14] MEDS: HEPARIN/D5w 25,000 UNITS 25,000 UNITS/250 ML IV.SOLN. 8 UNITS IV (07:24)
[2020-09-14] MEDS: Pantoprazole Sodium 20 MG Tablet PO (08:58)
[2020-09-14] MEDS: Metoprolol(XL)Succ 50 MG Tablet PO (08:58)
[2020-09-14] MEDS: Finasteride 5 MG Tablet PO (08:58)
[2020-09-14] MEDS: Tamsulosin HCl 0.4 MG Capsule 0.8 MG PO (08:58)
[2020-09-14] MEDS: Amiodarone 200 MG Tablet PO (08:58)
[2020-09-14] MEDS: Docusate Sodium 100 MG Capsule PO (08:58)
[2020-09-14] MEDS: Senna Tablet 1 TABLET PO (08:58)
[2020-09-14] MEDS: Nystatin Ointment 1 APPLIC TOPICAL (08:59)
[2020-09-14] MEDS: predniSONE 20 MG Tablet 40 MG PO (08:59)
[2020-09-14 11:32] LABS: International Normalized Ratio 2.4; Prothrombin Time (Protime)PT. 25.6 SECONDS (11.7-14.9)
[2020-09-14 11:40] LABS: Bedside Glucose 310 mg/dL (70-110)
--- NOTE | 2020-09-14 11:51 | TREXTCAR_ITS ---
- Diet 09/07/20 12:17 Diet: Carbohydrate Controlled Food consistency:: Regular Liquid Consistency:: Regular/Thin Dietary Modifications:: Sodium Restricted Type of Dietary Supplement:: Glucerna Shake Is pt able to select menu?: Yes Diet Comments: 120ml glucerna shake BID w/ lunch and dinner--chocolate - Routine Orders/Code Status Routine Lab Work: CBC - in 3 days, - - Fingerstick blood sugars ACQHS, coverage with Humalog SQ per protocol: 200-250: 5 units, 251-300: 8 units, 301-350: 12 units, 351-400: 15 units Code [facility] - no intubation - Therapies Physical Therapy: Eval and Treat Occupational Therapy: Eval and Treat - Problem/Diagnosis (1) Acute blood loss anemia Status: Acute Comment: from prostatitis (2) Dilated cardiomyopathy Status: Chronic Comment: EF 30 % (3) Schizoaffective disorder Status: Chronic (4) Supratherapeutic INR Status: Acute (5) Gross hematuria Status: Acute Comment: due to prostatitis (6) mechanical prosthetic aortic valve replacement Status: Chronic (7) DM type 2 (diabetes mellitus, type 2) Status: Chronic (8) Chronic obstructive lung disease Status: Chronic (9) Chronic respiratory failure with hypoxia Status: Chronic (10) Systolic CHF Status: Acute (11) Chronic a-fib Status: Chronic (12) Pulmonary hypertension Status: Chronic Comment: mild (13) Coronary artery disease Status: Chronic Comment: stent placement 04/12 (14) Cerebrovascular disease Status: Chronic - Allergies/Procedures Done in Hospital Allergies/Adverse Reactions: Allergies ticagrelor [From Brilinta] Allergy (Verified 09/01/20 06:08) WEAKNESS Procedures: 2-D Echocardiogram, - - cystoscopy with TURP - Type of Care/Length of Stay Estimated LOS: Convalescent Care Less Than 30 days Type of Care Needed: Skilled Rehab Potential: Good Prognosis: Good - Additional Orders/Day of Discharge H&P will serve as current which was dated: 09/01/20 Day of Discharge: 09/14/20 - Dietary and Speech Recommendations Dietitian Recommendations/Changes: Continue Carbohydrate controlled, sodium restricted diet w/ Glucerna BID at meals. Fluid restriction as indicated. - Follow Up Care Primary Care Physician: Fredrick Conway MD [Primary Care Provider] -
--- NOTE | 2020-09-14 12:17 | PN.RENAL_ITS ---
Patient Problems: Active and Suspected Problems Acute blood loss anemia (Acute) from prostatitis Systolic CHF (Acute) Hyperkalemia (Acute) Supratherapeutic INR (Acute) Gross hematuria (Acute) due to prostatitis Subjective: states had trouble urinating yesterday. Denied hemauria. Had loose stools, black in color. Edema persists. Tentatively scheduled to transfer to [facility] but refusing now. - Physical Exam Vitals/I&O's: Vital Signs Temp Pulse Resp BP Pulse Ox 97.9 F 92 16 106/58 L 100 09/14/20 09:05 09/14/20 10:45 09/14/20 10:45 09/14/20 09:05 09/14/20 09:05 Oxygen Flow Rate (L/min) 3 Oxygen Delivery Method Nasal Cannula Weight: 89.04 kg Body Mass Index (BMI) 29.8 Finger Stick Blood Glucose 188 Intake and Output for Last 24 Hours 09/12/20 09/13/20 09/14/20 23:59 23:59 23:59 Intake Total 57.2 / 57.2 1309.65 / 1309.65 181.82 / 181.82 Balance 57.2 / 57.2 1309.65 / 1309.65 181.82 / 181.82 General: Alert, Oriented x3, Cooperative, No apparent distress Cardiovascular: Irregular Rate - afib Abdomen: Bowel Sounds Present, Soft, Non Tender Extremities: Edema Musculoskeletal: - - gen weakness Neurological: - - no tremor Psych/Mental Status: Alert and oriented to time, place, person, mood and affect Laboratory Results 09/13/20 14:30: APTT 51.6 H 09/13/20 16:21: POC Glucose 240 H 09/13/20 21:00: APTT 52.8 H 09/13/20 22:37: POC Glucose 335 H 09/14/20 04:36: PT 25.0 H, INR 2.3 09/14/20 04:36: Sodium 131 L, Potassium 4.1, Chloride 97 L, Carbon Dioxide 27.0, BUN 95 H, Creatinine 2.74 H, Estim Creat Clear Calc 21.15, Est GFR (MDRD) Af Amer 29 L, Est GFR (MDRD) Non-Af 24 L, BUN/Creatinine Ratio 34.7 H, Glucose 236 H, Calcium 9.2, Phosphorus 4.6, Albumin 2.7 L 09/14/20 04:36: WBC 11.7 H, RBC 3.04 L, Hgb 8.1 L, Hct 26.1 L, MCV 85.9, MCH 26.6 L, MCHC 31.0 L, RDW Std Deviation 53.0 H, RDW Coeff of Yessi 17.1 H, Plt Count 202, MPV 10.4, Immature Gran % (Auto) 0.500, Neut % (Auto) 79.2 H, Lymph % (Auto) 12.7 L, Cole % (Auto) 7.5, Eos % (Auto) 0.0, Baso % (Auto) 0.1, Absolute Neuts (auto) 9.3 H, Absolute Lymphs (auto) 1.49, Nucleated RBC % 0.2 09/14/20 04:36: APTT 82.1 H 09/14/20 06:39: POC Glucose 221 H 09/14/20 11:10: PT 25.6 H, INR 2.4 09/14/20 11:24: POC Glucose 310 H Current Medications Acetaminophen (Acetaminophen 325 Mg Tablet) 325 mg PO Q6H PRN PRN PRN Reason: PAIN 1-10 Last Admin: 09/13/20 20:21 Dose: 325 mg Documented by: Al Hydroxide/Mg Hydroxide (Mag Hydrox/Al Hydrox/Simeth 30 Ml Udc) 30 ml PO Q4H PRN PRN PRN Reason: gi distress Last Admin: 09/08/20 01:08 Dose: 30 ml Documented by: Albuterol Sulfate (Albuterol 2.5 Mg/3 Ml Vial.Neb.) 2.5 mg INHALATION Q4H PRN PRN Reason: Wheezing Last Admin: 09/08/20 23:52 Dose: 2.5 mg Documented by: Albuterol/Ipratropium (Ipratropium/Albuterol Sulfate 3 Ml Ampul.Neb) 3 ml INHALATION Q4H.RT [facility] Last Admin: 09/14/20 10:45 Dose: 3 ml Documented by: Allopurinol (Allopurinol 100 Mg Tablet) [facility] Last Admin: 09/08/20 09:08 Dose: 100 mg Documented by: Amiodarone HCl (Amiodarone 200 Mg Tablet) 200 mg PO DAILY [facility] Last Admin: 09/14/20 08:58 Dose: 200 mg Documented by: Atorvastatin Calcium (Atorvastatin Calcium 80 Mg Tablet) 80 mg PO QHS [facility] Last Admin: 09/13/20 22:39 Dose: 80 mg Documented by: Dextrose (Dextrose 50%-Water 25 Gm/50 Ml Disp.Syrin) 0 gm IV X1 PRN; Protocol PRN Reason: Hypoglycemia Docusate Sodium (Docusate Sodium 100 Mg Capsule) 100 mg PO BID [facility] Last Admin: 09/14/20 08:58 Dose: 100 mg Documented by: Finasteride (Finasteride 5 Mg Tablet) 5 mg PO DAILY [facility] Last Admin: 09/14/20 08:58 Dose: 5 mg Documented by: Glucagon (Glucagon 1 Mg/Ml Syringe) 1 mg IM .X1 PRN PRN Reason: Hypoglycemia Hydrocortisone Acetate (Hydrocortisone 25 Mg Suppository) 25 mg RC TID PRN PRN PRN Reason: Rectal Discomfort Last Admin: 09/11/20 02:49 Dose: 25 mg Documented by: Sodium Chloride () 250 mls @ 15 mls/hr IV .[id number] PRN PRN Reason: Saline Flush Last Infusion: 09/08/20 18:56 Dose: Infused Documented by: Sodium Chloride () 250 mls @ 15 mls/hr IV .[id number] PRN PRN Reason: Additional IVPB Infusion Insulin Glargine (Insulin Glargine 100 Units/Ml Pen) 22 units SC QHS [facility] Last Admin: 09/13/20 22:41 Dose: 22 u Documented by: Insulin Human Lispro (Insulin Lispro 100 Unit/Ml Insuln.Pen) 0 unit SC [facility]; Protocol Last Admin: 09/14/20 11:26 Dose: 6 u Documented by: Levothyroxine Sodium (Levothyroxine 50 Mcg Tablet) 50 mcg PO DAILY@0600 [facility] Last Admin: 09/14/20 06:40 Dose: 50 mcg Documented by: Magnesium Hydroxide (Magnesium Hydroxide 30 Ml Udc) 30 ml PO DAILY PRN PRN PRN Reason: CONSTIPATION Last Admin: 09/11/20 08:57 Dose: 30 ml Documented by: Metoprolol Succinate (Metoprolol(Xl)Succ 50 Mg Tablet) 50 mg PO DAILY [facility] Last Admin: 09/14/20 08:58 Dose: 50 mg Documented by: Nitroglycerin (Nitroglycerin (Inpatient Use) 0.4 Mg Tab.Subl) 0.4 mg SUBLINGUAL Q5M PRN PRN Reason: Angina Nystatin (Nystatin Ointment) 1 applic TOPICAL BID [facility]; Protocol Last Admin: 09/14/20 08:59 Dose: 1 applicatio Documented by: Oxycodone HCl (Oxycodone 5 Mg Tablet) 5 mg PO Q4H PRN PRN PRN Reason: Pain Score 1-10 Last Admin: 09/13/20 22:39 Dose: 5 mg Documented by: Pantoprazole Sodium (Pantoprazole Sodium 20 Mg Tablet) 20 mg PO BID [facility] Last Admin: 09/14/20 08:58 Dose: 20 mg Documented by: Prednisone (Prednisone 20 Mg Tablet) 40 mg PO DAILY@0800 [facility] Stop: 09/15/20 08:01 Last Admin: 09/14/20 08:59 Dose: 40 mg Documented by: Senna (Senna Tablet) 1 tablet PO DAILY [facility] Last Admin: 09/14/20 08:58 Dose: 1 tablet Documented by: Sodium Chloride (0.9% Saline Lock 10 Ml Syringe) 10 - 40 ml IV UD PRN PRN Reason: SALINE FLUSH Last Admin: 09/13/20 16:29 Dose: 10 ml Documented by: Tamsulosin HCl (Tamsulosin Hcl 0.4 Mg Capsule) 0.8 mg PO DAILY@0830 [facility] Last Admin: 09/14/20 08:58 Dose: 0.8 mg Documented by: Medical Necessity - Tobacco Use Smoking Status: Former smoker Tobacco Use: Non-smoker Assessment/Plan All Active Problems Acute blood loss anemia (Acute) Systolic CHF (Acute) Hyperkalemia (Acute) GI bleed (Resolved) Supratherapeutic INR (Acute) Gross hematuria (Acute) Anticoagulation goal of INR 2.5 to 3.5 (Acute) Facial droop (Resolved) 1. Acute on CKD baseline creatinine 1.3 to 1.6. Creatinine increased to 3.2 yesterday to 2.74 today. Decrease lasix to daily. Watch for urinary retention from groos hematuria. DC on lasix 40mg daily 2. Hemoptysis resolved 3. Hyponatremia from volume expansion improved with lasix 4. mechanical AVR on anticoagulation 5. 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 Hesitate to use spironolactone due to history of HUONG, hyperkalemia. DW hospitalist
--- NOTE | 2020-09-14 12:20 | CASEMGMT ---
Patient is ready to be discharged back to [facility]. SW called Jackie at [facility] and let her know. Await orders. Physician also wanted to check patient's INR around 4p today. As long as it is ok patient will be discharged. DARRON will put patient on the will call list with [facility]. Naomi RAMIREZ MSW
[2020-09-14 12:58] LABS: Partial Thromboplast Time 37.1 Seconds (24.1-36.2)
[2020-09-14] MEDS: Jantoven 2 MG Tablet PO (13:00)
--- NOTE | 2020-09-14 14:26 | PHA.DC.MR ---
Pharmacy Service has performed discharge medication reconciliation for this patient. The patient's discharge medication list was reviewed for discrepancies and discrepancies were resolved. Home Medications Amiodarone HCl 200 mg PO DAILY 06/05/20 Atorvastatin Calcium [Lipitor] 80 mg PO QHS 06/05/20 Budesonide Aerosol [Pulmicort Respules] 0.5 mg INHALATION BID 06/05/20 Clopidogrel Bisulfate [Plavix] 75 mg PO DAILY 06/05/20 Levothyroxine [Synthroid] 50 mcg PO DAILY 06/05/20 Metoprolol(XL)Succ [Toprol Xl (Beta Damir)] 50 mg PO DAILY 06/05/20 Omeprazole 20 mg PO BID 06/05/20 Docusate Sodium 100 mg PO BID 08/22/20 Nitroglycerin SL (ED ONLY) [Nitrostat] 0.4 mg SUBLINGUAL PRN PRN 08/22/20 Senna [Senokot] 1 tab PO DAILY 08/22/20 Mag Hydrox/Aluminum Hyd/Simeth [Alum-Mag Hydroxide-Simeth Susp] 30 ml PO Q4H PRN PRN 09/01/20 Acetaminophen [Tylenol Tablet] 325 mg PO Q6H PRN PRN tab 09/14/20 Albuterol Aerosols [Ventolin Aerosols] 2.5 mg INHALATION Q4H PRN vial.neb. 09/14/20 Finasteride [Proscar] 5 mg PO DAILY tab 09/14/20 Furosemide [Lasix] 40 mg PO DAILY #1 tab 09/14/20 Insulin Glargine [Lantus SoloStar Pen] 22 units SC QHS pen 09/14/20 Ipratropium/Albuterol Sulfate [Duoneb] 3 ml INHALATION Q4H.RT ampul.neb 09/14/20 Tamsulosin HCl [Flomax] 0.8 mg PO DAILY@0830 cap 09/14/20 Warfarin [Coumadin] 4 mg PO DAILY #1 tab 09/14/20 predniSONE tablet 20 mg PO BID #1 tab 09/14/20
--- NOTE | 2020-09-14 15:15 | CASEMGMT ---
DARRON faxed orders to [facility]. DARRON called patient's DANIE Toney and let him know patient will be headed back to [facility] today. DARRON did notify [facility] that patient will be coming later on this evening as the physician wanted to see patient's INR at 4p. DARRON also spoke with Mariama Bryan with [facility] and left her a voice mail letting her know patient was being discharged back to [facility] today. DARRON faxed patient's orders to Mariama. Plan: d/c back to [facility] under skilled level of care. [facility] will transport patient. Naomi RAMIREZ MSW
[2020-09-14 16:15] LABS: Bedside Glucose 278 mg/dL (70-110)
[2020-09-14 16:20] LABS: International Normalized Ratio 2.4; Prothrombin Time (Protime)PT. 25.9 SECONDS (11.7-14.9)
--- NOTE | 2020-09-15 08:29 | PN_ITS ---
Patient Problems: Active and Suspected Problems Acute blood loss anemia (Acute) from prostatitis Systolic CHF (Acute) Hyperkalemia (Acute) Supratherapeutic INR (Acute) Gross hematuria (Acute) due to prostatitis Subjective: Today with this entry is 09/14/2020: Patient was seen and examined today, his INR this morning was 2.3, I gave the patient extra warfarin this morning and repeated his INR at around 11:00 today, it was 2.4. I gave an extra 2 mg of warfarin at that point and repeated the INR one more time this afternoon at approximately 4 PM-the INR was still 2.4. I feel it safe to send the patient to the extended care facility today, his INR will be checked daily for the next 3 days, I have talked with his attending physician at his assisted about the importance of keeping the INR between 2-1/2 and 3-1/2. I also talked with the patient today about going to the extended care facility-he did not appear to understand that he is still debilitated and needs further physical therapy, he is agreed to go to the assisted. I also talked briefly with urology about his discharge today. - Physical Exam Vitals/I&O's: Vital Signs Temp Pulse Resp BP Pulse Ox 98.1 F 102 H 18 102/78 98 09/14/20 17:58 09/14/20 17:58 09/14/20 17:58 09/14/20 17:58 09/14/20 17:58 Oxygen Flow Rate (L/min) 3 Oxygen Delivery Method Nasal Cannula Weight: 89.04 kg Body Mass Index (BMI) 29.8 Finger Stick Blood Glucose 188 Intake and Output for Last 24 Hours 09/13/20 09/14/20 09/15/20 23:59 23:59 23:59 Intake Total 1309.65 / 1309.65 866.75 / 866.75 Balance 1309.65 / 1309.65 866.75 / 866.75 General: Alert, Cooperative, No apparent distress, Well developed HEENT: Atraumatic, PERRLA, EOMI, Normocephalic Oral: Moist Mucosa Neck: Supple, No JVD, Trachea Midline, Thyroid Normal Size and Texture Lungs: Clear to auscultation, Normal air movement, No rhonchi, No wheeze Cardiovascular: No murmurs, PMI Normal, Irregular Rate, No rub noted Abdomen: Bowel Sounds Present, Soft, Non Tender, Non-Distended Extremities: No clubbing, No cyanosis, No edema, Capillary Refill Less than 3 Seconds Skin: No rashes, No breakdown Musculoskeletal: No Tenderness to Palpation of Joints or Extremities Neurological: Cranial nerves II-XII grossly intact, Neuro grossly intact, Sensory exam intact to light touch and pain Psych/Mental Status: Normal Affect, Appropriate Laboratory Results 09/14/20 11:10: PT 25.6 H, INR 2.4 09/14/20 11:24: POC Glucose 310 H 09/14/20 12:20: APTT 37.1 H 09/14/20 15:53: PT 25.9 H, INR 2.4 09/14/20 15:58: POC Glucose 278 H Medical Necessity - Tobacco Use Smoking Status: Former smoker Tobacco Use: Non-smoker Assessment/Plan All Active Problems Acute blood loss anemia (Acute) Systolic CHF (Acute) Hyperkalemia (Acute) GI bleed (Resolved) Supratherapeutic INR (Acute) Gross hematuria (Acute) Anticoagulation goal of INR 2.5 to 3.5 (Acute) Facial droop (Resolved) #1 chronic hypoxic respiratory failure secondary to chronic obstructive pulmonary disease and chronic systolic congestive heart failure-currently patient is on nasal cannula oxygen at 3 L #2 Acute on chronic systolic congestive heart failure-patient's echocardiogram revealed a 30% EF #3 chronic kidney disease stage IV-patient's creatinine today is 2.74 #4 atherosclerotic heart disease with recent BABATUNDE in 03/2020-patient will need to remain on Plavix and aspirin #5 ischemic cardiomyopathy/history of dilated cardiomyopathy- echocardiogram showed an EF of 30% with mild pulmonary hypertension. #6 chronic obstructive pulmonary disease #7 Schizoaffective disorder-patient remains off of any psychiatric medications at this time and appears stable #8 chronic atrial fibrillation- rate appears controlled at this time #9 mechanical aortic heart valve-patient will need to remain on warfarin #10 type 2 diabetes-patient's blood sugars will be monitored #11 chronic anemia-possibly secondary to chronic kidney disease #12 GERD #13 hyperlipidemia #14 hypothyroidism #15 hyperkalemia-resolved #16 acute on chronic anemia secondary to acute hematuria-patient's hemoglobin today was 8.1, it appears stable Overall long-term prognosis remains guarded at this time due to the fact the patient has multiple medical problems, patient's assisted transfer paperwork was filled out by me today. Inpatient E&M: [id number] Subs Hosp L3
--- NOTE | 2020-09-19 09:18 | DS.PCM_ITS ---
Discharge Date and Diagnosis - Problem List Patient Problems: Active and Suspected Problems Acute blood loss anemia (Acute) from prostatitis Systolic CHF (Acute) Hyperkalemia (Acute) Supratherapeutic INR (Acute) Gross hematuria (Acute) due to prostatitis Date of Admission: 09/01/20 Date of Discharge: 09/15/20 - Primary Discharge Diagnosis Acute Problems: Active Problems Acute blood loss anemia (Acute) from prostatitis Systolic CHF (Acute) Hyperkalemia (Acute) Supratherapeutic INR (Acute) Gross hematuria (Acute) due to prostatitis - Secondary Discharge Diagnosis Chronic Problems: Chronic Problems Chronic respiratory failure with hypoxia (Chronic) Chronic a-fib (Chronic) Pulmonary hypertension (Chronic) mild Coronary artery disease (Chronic) stent placement 04/12 Dilated cardiomyopathy (Chronic) EF 30 % Obstructive sleep apnea (Chronic) Cerebrovascular disease (Chronic) Schizoaffective disorder (Chronic) Acute cerebrovascular accident (Chronic) CAD (coronary artery disease) (Chronic) mechanical prosthetic aortic valve replacement (Chronic) Hyperlipidemia (Chronic) DM type 2 (diabetes mellitus, type 2) (Chronic) Chronic obstructive lung disease (Chronic) Hospital Course and Treatment Operations: None, TURP, - Procedures: None Summary of Care Provided: The patient is a 80 year old male with a mechanical heart valve presented to the hospital with gross hematuria we had to hold his anticoagulation for a short period he went to the operating room for a cystoscopy evacuation of blood clots and transurethral resection of the prostate cauterization of the prostate. After this we held his blood thinners for about 24 hours and then restarted back on anticoagulant with heparin and then went on to Coumadin. Had a long postoperative course mostly due to his extreme weakness dehydration and poor ADLs he could barely move around. He could barely get down the hallway. He needed a lot of assist to get out of bed to a chair and to walk. He did have some hemoptysis at one point which was evaluated with a CAT scan of the chest. After long hospital stay he was finally discharged to a [place] [facility] to continue with care. Patient Problems: Active and Suspected Problems Acute blood loss anemia (Acute) from prostatitis Systolic CHF (Acute) Hyperkalemia (Acute) Supratherapeutic INR (Acute) Gross hematuria (Acute) due to prostatitis - Physical Exam Vitals/I&O's: Vital Signs Temp Pulse Resp BP Pulse Ox 98.1 F 102 H 18 102/78 98 09/14/20 17:58 09/14/20 17:58 09/14/20 17:58 09/14/20 17:58 09/14/20 17:58 Oxygen Flow Rate (L/min) 3 Oxygen Delivery Method Nasal Cannula Weight: 89.04 kg Body Mass Index (BMI) 29.8 Finger Stick Blood Glucose 188 General: Alert, Oriented x3, Cooperative HEENT: Atraumatic, PERRLA, EOMI, Normocephalic Neck: Supple, No JVD, Negative Carotid Bruits Lungs: Clear to auscultation, Normal air movement Cardiovascular: Regular rate, No murmurs Abdomen: Bowel Sounds Present, Soft, Non Tender Extremities: No edema, Capillary Refill Less than 3 Seconds Skin: No rashes, No breakdown Musculoskeletal: No Tenderness to Palpation of Joints or Extremities Neurological: Cranial nerves II-XII grossly intact Psych/Mental Status: Normal Affect, Appropriate Discharge Diet: Light diet - advance as tolerated Discharge Activity: Return to Normal Activity Call your doctor if your incision/area has: Sudden Increased Bleeding Call your doctor if you observe: Fever of 101 or Higher Home Medications: Medications to take at Discharge Amiodarone HCl 200 mg PO DAILY 06/05/20 Atorvastatin Calcium [Lipitor] 80 mg PO QHS 06/05/20 Budesonide Aerosol [Pulmicort Respules] 0.5 mg INHALATION BID 06/05/20 Clopidogrel Bisulfate [Plavix] 75 mg PO DAILY 06/05/20 Levothyroxine [Synthroid] 50 mcg PO DAILY 06/05/20 Metoprolol(XL)Succ [Toprol Xl (Beta Damir)] 50 mg PO DAILY 06/05/20 Omeprazole 20 mg PO BID 06/05/20 Docusate Sodium 100 mg PO BID 08/22/20 Nitroglycerin SL (ED ONLY) [Nitrostat] 0.4 mg SUBLINGUAL PRN PRN 08/22/20 Senna [Senokot] 1 tab PO DAILY 08/22/20 Mag Hydrox/Aluminum Hyd/Simeth [Alum-Mag Hydroxide-Simeth Susp] 30 ml PO Q4H PRN PRN 09/01/20 Acetaminophen [Tylenol Tablet] 325 mg PO Q6H PRN PRN tab 09/14/20 Albuterol Aerosols [Ventolin Aerosols] 2.5 mg INHALATION Q4H PRN vial.neb. 09/14/20 Finasteride [Proscar] 5 mg PO DAILY tab 09/14/20 Furosemide [Lasix] 40 mg PO DAILY #1 tab 09/14/20 Insulin Glargine [Lantus SoloStar Pen] 22 units SC QHS pen 09/14/20 Ipratropium/Albuterol Sulfate [Duoneb] 3 ml INHALATION Q4H.RT ampul.neb 09/14/20 Tamsulosin HCl [Flomax] 0.8 mg PO DAILY@0830 cap 09/14/20 Warfarin [Coumadin] 4 mg PO DAILY #1 tab 09/14/20 predniSONE tablet 20 mg PO BID #1 tab 09/14/20 Following Prescriptions Were Given to Patient: Warfarin [Coumadin] 4 mg PO DAILY #1 tab Furosemide [Lasix] 40 mg PO DAILY #1 tab predniSONE tablet 20 mg PO BID #1 tab Primary Care Physician: Fredrick Conway MD [Primary Care Provider] - Medical Necessity - Tobacco Use Smoking Status: Former smoker Tobacco Use: Non-smoker Meaningful Use Info Meaningful Use Diagnoses (Choose all that apply): None applicable
== END 2020-09-14 18:58 | disposition skilled nursing facility (03) | DRG 713 ==
LOC: ED 07:41 → MS3 09:06 → PCU 09-02 10:01
PROVIDERS: Anesthesiology; Family Medicine; Hospitalist; Internal Medicine; Internal Medicine Nephrology; Admitting Provider Urology; Emergency Provider Emergency Medicine; PCP Family Medicine; Visit Provider Internal Medicine
PROC: 0VT08ZZ Resection of Prostate, Via Natural or Artificial Opening Endoscopic (ICD-10-PCS; principal; 2020-09-04 15:15)
DX: N41.0 Acute prostatitis (principal); I50.23 Acute on chronic systolic (congestive) heart failure; J96.21 Acute and chronic respiratory failure with hypoxia; I13.0 Hypertensive heart and chronic kidney disease with heart failure and stage 1 through stage 4 chronic kidney disease, or unspecified chronic kidney disease; I48.20 Chronic atrial fibrillation, unspecified; G93.40 Encephalopathy, unspecified; D62 Acute posthemorrhagic anemia; E87.1 Hypo-osmolality and hyponatremia; R04.2 Hemoptysis; J44.1 Chronic obstructive pulmonary disease with (acute) exacerbation; N17.9 Acute kidney failure, unspecified; N18.4 Chronic kidney disease, stage 4 (severe); R31.0 Gross hematuria; E11.22 Type 2 diabetes mellitus with diabetic chronic kidney disease; I25.10 Atherosclerotic heart disease of native coronary artery without angina pectoris; I25.5 Ischemic cardiomyopathy; F39 Unspecified mood [affective] disorder; G31.84 Mild cognitive impairment of uncertain or unknown etiology; D63.1 Anemia in chronic kidney disease; K21.9 Gastro-esophageal reflux disease without esophagitis; E78.5 Hyperlipidemia, unspecified; E03.9 Hypothyroidism, unspecified; Z79.01 Long term (current) use of anticoagulants; Z87.891 Personal history of nicotine dependence; Z95.2 Presence of prosthetic heart valve; Z79.4 Long term (current) use of insulin; Z79.51 Long term (current) use of inhaled steroids; Z79.899 Other long term (current) drug therapy; Z86.73 Personal history of transient ischemic attack (TIA), and cerebral infarction without residual deficits; F25.9 Schizoaffective disorder, unspecified; E87.5 Hyperkalemia; D72.829 Elevated white blood cell count, unspecified; R53.81 Other malaise; Z66 Do not resuscitate; I27.20 Pulmonary hypertension, unspecified; Z95.5 Presence of coronary angioplasty implant and graft; I95.9 Hypotension, unspecified; E11.65 Type 2 diabetes mellitus with hyperglycemia; T38.0X5A Adverse effect of glucocorticoids and synthetic analogues, initial encounter; E86.0 Dehydration
CPT/HCPCS: 36415; 36416; 71045; 71250; 74176; 80048; 80053; 80069; 82947; 82962; 83880; 85014; 85018; 85025; 85027; 85610; 85730; 86850; 86900; 86901; 86920; 87426; 93005; 93306; 94002; 94640; 97110; 97116; 97162; 97166; 97530; 97535; 97802; 97803; 99251; 99285; J7040; J7050; P9016; P9017; Q9957; A4216; C8929; G0463; J0744; J1940; J2310; J2405

== ENCOUNTER 2020-10-12 18:39 | Inpatient (IN) | payer MEDICARE, MEDICAID, SELFPAY ==
[2020-09-04 03:00] VITALS: BMI 29.8
[2020-10-12] VITALS (12 sets, daily range): BP systolic 96–101; BP diastolic 57–80; PULSE 71–82; RESP 16–30; TEMP 36.4–36.8; O2SAT 96–100; BMI 34.5; BMI 33.0
--- NOTE | 2020-10-12 18:47 | EKG12_ITS ---
Test Reason : CP Blood Pressure : / mmHG Vent. Rate : 082 BPM Atrial Rate : 090 BPM P-R Int : 000 ms QRS Dur : 162 ms QT Int : 476 ms P-R-T Axes : 000 -68 093 degrees QTc Int : 556 ms Atrial fibrillation with premature ventricular or aberrantly conducted complexes Left axis deviation Left bundle branch block Abnormal ECG Confirmed by DELORES RESENDEZ, JAMES ([id number]), web content editor DEVAN LOVE ([id number]) on 10/15/2020 12:35:31 PM Referred By: ESTRELLA Confirmed By:CULLEN ESTRELLA MD
--- NOTE | 2020-10-12 18:55 | ED.DCSUM_ITS ---
History of Present Illness Chief Complaint: Abn Labs Informant: Patient, [facility], [facility] Onset: Today - Morning complained of chest pain at rest with shortness of breath. He also has productive cough. Timing: Continuous Quality: Midsternal chest pain, productive cough, low hemoglobin and elevated INR Location: Cardiac, respiratory and hematologic Current Severity: Moderate Maximum Severity: Severe Worsened by: Patient is on Coumadin. Relieved by: Nothing Associated Symptoms: Dyspnea on exertion, denies black or maroon-colored stool Narrative: Patient is an elderly male with multiple medical problems who presents because hemoglobin of 6.7 and INR greater than 10. He denies black or maroon stool. He denies vomiting. He does have a cough productive of yellow sputum. He does report shortness of breath. He does have history of congestive heart failure as well as renal failure. He is not a good informant. He denies history of trauma or fall. He denies fever, chills night sweats. He denies ocular, visual auditory symptoms. Denies rhinorrhea, congestion postnasal drainage. Denies sore throat. He had a negative Covid test yesterday. He is still complaining of chest discomfort. He does report shortness of breath. He sleeps in a semiupright position. He also complains of swelling of his lower extremities. He denies bleeding from his gums. He denies blood in his urine. Prior similar symptoms: No Recent Illness/Hospitalization: No - Past Medical History (1) Acute blood loss anemia Status: Acute Comment: from prostatitis (2) Systolic CHF Status: Acute (3) Acute cerebrovascular accident Status: Chronic (4) CAD (coronary artery disease) Status: Chronic (5) Chronic a-fib Status: Chronic (6) Chronic obstructive lung disease Status: Chronic (7) DM type 2 (diabetes mellitus, type 2) Status: Chronic (8) Dilated cardiomyopathy Status: Chronic Comment: EF 30 % (9) Hyperlipidemia Status: Chronic (10) Obstructive sleep apnea Status: Chronic (11) Pulmonary hypertension Status: Chronic Comment: mild (12) Schizoaffective disorder Status: Chronic (13) mechanical prosthetic aortic valve replacement Status: Chronic (14) GI bleed Status: Resolved Past Medical History - Allergies and Home Meds Allergies/Adverse Reactions: Allergies ticagrelor [From Brilinta] Allergy (Verified 10/12/20 18:40) WEAKNESS Primary Care Physician: Fredrick Conway MD [Primary Care Provider] - Prior records reviewed: Yes Surgical History: cholecystectomy, - - Bladder resection and aortic valve replacement Lives: [facility] Smoking Status: Former smoker Alcohol: None Drugs: None - Family History Maternal Family History: Reports: Unknown - He does not know any biological history of either parent as he was raised in an orphanage Review of Systems General: Reports: Malaise. Denies: Chills, Fever, Subjective Eyes: Denies: Visual changes - bilaterally, Blurred Vision - bilaterally ENT: Denies: Bilateral ear pain, Rhinorrhea, Sore throat Cardiovascular: Reports: Chest pain, Palpitations. Denies: Heart racing Respiratory: Reports: Dyspnea, Cough, Sputum, Dyspnea on exertion, Orthopnea Gastrointestinal: Denies: Abdominal pain, Nausea, Vomiting, Diarrhea, Constipation, Melena, Hematochezia Genitourinary: Denies: Dysuria, Hematuria, Frequency Musculoskeletal: Reports: Swelling. Denies: Myalgias, Arthralgias, Neck pain, Back pain, Extremity Pain Skin: Denies: Rash Neurological: Reports: Weakness. Denies: Headache, Parasthesia Psych: Reports: Depression Endocrine: Denies: Polyuria, Polydipsia Hematologic: Reports: Easy bruising. Denies: Easy bleeding Allergy: Denies: Uticaria Physical Exam Vital Signs/Narrative: Vital Signs Temp Pulse Resp BP Pulse Ox 10/12/20 18:46 75 23 H 101/57 L 97 10/12/20 18:45 98.2 F 82 24 H 101/57 L 96 10/12/20 18:41 98.2 F 75 16 96/60 96 Inital Vital Signs reviewed: Yes General: Well nourished, Well developed, Obese, Acute Distress Head: Normocephalic, Atraumatic Eyes: Perrl, EOMI, Pale conjunctiva. Negative for: Scleral icterus ENT: Moist mucous membranes, No rhinorrhea, TM's clear Neck: Supple, Nontender, No lymphadenopathy, No JVD Cardiovascular: Regular rate, Regular rhythm, No murmurs Respiratory: Rales, Wheezing, Diminished. Negative for: No distress, CTA bilaterally Abdomen: Soft, Nontender, Nondistended, Normal bowel sounds, No masses Rectal: - - Stool is brown and sent for Hemoccult test. : - - Unremarkable Back: Nontender. Negative for: Normal Inspection - Patient has multiple bruises and his right buttocks is tense suspect due to hematoma. Extremities: Nontender, Edema - Marked pitting edema 8 mm Skin: No rash, Pallor, Trauma. Negative for: Cyanosis, Diaphoresis, Jaundice, No Trauma Neurological: Alert, Cranial nerves II-XII grossly intact, Normal DTR Psychological: Depressed Diagnostic/Tx/Re-eval Impressions Chest X-Ray 10/12/20 19:28 IMPRESSION: Cardiomegaly with central pulmonary venous congestion and small left pleural effusion. Electronically Signed: Tahir Machado MD at 19:39 EDT Tel , Service support , 10/12/20 19:28 Chest 1 View (Portable) [RAD] Stat 10/12/20 19:00 Stool Stool Occult Blood (HESHAM) - Final Occult Blood Positive Laboratory Results 10/12/20 10/12/20 10/12/20 19:00 19:00 19:00 WBC 5.8 RBC 2.69 L Hgb 6.7 L Hct 22.2 L MCV 82.5 MCH 24.9 L MCHC 30.2 L RDW Std Deviation 59.7 H RDW Coeff of Yessi 20.2 H Plt Count 162 MPV 10.9 Immature Gran % (Auto) 0.300 Neut % (Auto) 79.4 H Lymph % (Auto) 9.7 L [place] % (Auto) 10.2 H Eos % (Auto) 0.2 Baso % (Auto) 0.2 Absolute Neuts (auto) 4.6 Absolute Lymphs (auto) 0.56 L Nucleated RBC % 0.3 Differential Comment SCANNED PT 99.9 H INR 12.9 H* Sodium 131 L Potassium 5.8 H Chloride 100 Carbon Dioxide 23.0 Anion Gap 8 BUN 109 H* Creatinine 4.01 H Estim Creat Clear Calc 14.45 Est GFR (MDRD) Af Amer 19 L Est GFR (MDRD) Non-Af 15 L BUN/Creatinine Ratio 27.2 H Glucose 170 H Lactic Acid Calcium 8.4 L Total Bilirubin 1.10 H AST 73 H ALT 57 Alkaline Phosphatase 251 H Troponin I 0.028 Total Protein 6.1 L Albumin 2.1 L Globulin 4.0 Albumin/Globulin Ratio 0.5 L Blood Type Antibody Screen Crossmatch 10/12/20 10/12/20 10/12/20 19:00 19:00 19:00 WBC RBC Hgb Hct MCV MCH MCHC RDW Std Deviation RDW Coeff of Yessi Plt Count MPV Immature Gran % (Auto) Neut % (Auto) Lymph % (Auto) [place] % (Auto) Eos % (Auto) Baso % (Auto) Absolute Neuts (auto) Absolute Lymphs (auto) Nucleated RBC % Differential Comment PT INR Sodium Potassium Chloride Carbon Dioxide Anion Gap BUN Creatinine Estim Creat Clear Calc Est GFR (MDRD) Af Amer Est GFR (MDRD) Non-Af BUN/Creatinine Ratio Glucose Lactic Acid 2.0 Calcium Total Bilirubin AST ALT Alkaline Phosphatase Troponin I Total Protein Albumin Globulin Albumin/Globulin Ratio Blood Type B POSITIVE Antibody Screen NEGATIVE Crossmatch See Detail - EKG Initial EKG Interpretation: Atrial Fibrillation - Atrial fibrillation with a Olivo beats and a ventricular rate 82. Cures duration under 62 ms. Configuration of left bundle branch block with left axis. QT interval 476 ms. - Medical Decision Making Patient presents with low hemoglobin and elevated INR at low blood pressure. Suspect the low hemoglobin is due to bleeding into his multiple extremity and torso bruises. Stool was sent for occult blood. Since patient is hypotensive he will receive a fluid bolus. Concern patient has COPD with purulent bronchitis versus pneumonia. EKG, chest x-ray appropriate labs were ordered. Patient will require admission. Patient was typed and crossed since he is symptomatic. He did respond to fluid bolus however chest x-ray reveals congestive heart failure. He was treated with Lasix. Wheezing improved with aerosol treatments. Patient did receive vitamin K for his INR of 12.1. Stool was brown however it was Hemoccult positive. This will need to be monitored. - Critical Care Time Critical care time (excluding procedures): 30-74 minutes - Total critical care time 37 minutes which included obtaining history, physical exam, review of prison records, prior records and documentation. Also initiation of care, Discussing w/Patient &/or Family/[employer] Tour Guide, Discussing w/Consultants, Arranging Admission or Transfer ED Disposition - Plan for ED Patient: Disposition: Acute Care Hospital [facility] Diagnosis: Symptomatic anemia, Congestive heart failure, Acute on chronic renal failure, Hemoccult positive stool, Hypotension, mechanical prosthetic aortic valve replacement, Chronic a-fib Referrals: Fredrick Conway MD [Primary Care Provider] -
[2020-10-12] MEDS: Albuterol 2.5 MG/3 ML VIAL.NEB. INHALATION (19:00)
[2020-10-12] MEDS: Ipratropium/Albuterol Sulfate 3 ML AMPUL.NEB INHALATION ×2 (19:01→23:33)
[2020-10-12 19:12] LABS: Absolute Lymphocyte Count 0.56 X10^3/uL (0.83-4.51); Absolute Neutrophil Count 4.6 X10^3/uL (2.0-7.7); Basophil# 0.01 X10^3/uL; Basophil% 0.2 % (0-1); Eosinophil# 0.01 X10^3/uL; Eosinophils% 0.2 % (0-5); Hematocrit 22.2 % (40-54); Hemoglobin 6.7 g/dL (13.0-16.5); Lymphocyte # 0.56 X10^3/ul (4.0); Lymphocyte % 9.7 % (19-41); Mean Corp Hgb Conc 30.2 g/dL (32-36); Mean Corpuscular Hgb 24.9 pg (27.0-32.0); Mean Corpuscular Volume 82.5 fL (80-94); Mean Platelet Vol. 10.9 fl (6.2-12.0); Monocyte# 0.59 X10^3/uL; Monocyte% 10.2 % (0-10); NRBC Flagged by Analyzer 0.3 % (0-5); Neutrophil # 4.57 X10^3/uL (2.7-7.7); Neutrophil % 79.4 % (47-70); POSITIVE DIFFERENTIAL YES; POSITIVE MORPHOLOGY YES; Platelet Count 162 K/mm3 (150-450); RBC Distribution Width CV 20.2 % (11.6-14.6); RBC Distribution Width SD 59.7 fl (35.1-43.9); Red Blood Count 2.69 M/mm3 (4.6-6.2); White Blood Count 5.8 K/mm3 (4.4-11.0)
[2020-10-12 19:14] LABS: Differential Indicated SCAN CRITERIA MET
[2020-10-12 19:21] LABS: Prothrombin Time (Protime)PT. 99.9 SECONDS (11.7-14.9)
--- NOTE | 2020-10-12 19:28 | RAD_ITS ---
INDICATION: Dyspnea, cough EXAMINATION/TECHNIQUE: X-RAY - XR Chest 1 View COMPARISON: 09/10/2020. FINDINGS: Central pulmonary venous congestion. Chronic lung changes. Tortuous and calcified thoracic aorta. The heart is enlarged. There is an aortic valve replacement. Small left pleural effusion. No pneumothorax. No acute osseous abnormalities. RAD/Chest 1 View (Portable) IMPRESSION: Cardiomegaly with central pulmonary venous congestion and small left pleural effusion. Electronically Signed: Tahir Machado MD at 19:39 EDT Tel , Service support ,
[2020-10-12] MEDS: 0.9% Normal Saline 1,000 ML 1000 ML IV (19:29)
[2020-10-12 19:35] LABS: ALB/GLOB Ratio 0.5 RATIO (0.9-2.4); AST(SGOT) 73 U/L (15-37); Alanine Aminotransfer ALT/SGPT 57 U/L (16-61); Albumin, Serum 2.1 g/dL (3.2-5.0); Alkaline Phosphatase 251 U/L (45-117); Anion Gap 8 (5-15); BUN 109 mg/dL (7-18); BUN/Creat Ratio 27.2 RATIO (10-20); Calcium,Total 8.4 mg/dL (8.5-10.1); Chloride 100 mmol/L (98-107); Creatinine, Serum 4.01 mg/dL (0.70-1.30); EST Glomerular Filtration Rate 15 mL/min (>60); Est Glom Filt Rate - Afr Amer 19 mL/min (>60); Estimated Creatinine Clearance 14.45 ml/min; Glucose 170 mg/dL (74-106); Potassium 5.8 mmol/L (3.5-5.1); Protein, Total 6.1 g/dL (6.4-8.2); Sodium Level 131 mmol/L (136-145)
[2020-10-12 19:46] LABS: International Normalized Ratio 12.9
[2020-10-12 19:47] LABS: Differential Comment SCANNED
[2020-10-12] MEDS: Furosemide 40 MG/4 ML Vial IV (20:51)
[2020-10-12] MEDS: Phytonadione (Vit K1) 5 MG TABLET PO (21:13)
--- NOTE | 2020-10-12 21:26 | HP.PCM_ITS ---
<Justine Hernandez - Last Filed: 10/12/20 21:26> Problem List (1) Acute blood loss anemia Status: Acute (2) Systolic CHF Status: Acute Qualifiers: Heart failure chronicity: acute on chronic Qualified Code(s): I50.23 - Acute on chronic systolic (congestive) heart failure (3) Supratherapeutic INR Status: Acute (4) Chronic a-fib Status: Chronic (5) Coronary artery disease Status: Chronic Comment: stent placement 04/12 (6) Obstructive sleep apnea Status: Chronic (7) mechanical prosthetic aortic valve replacement Status: Chronic (8) Hyperlipidemia Status: Chronic (9) DM type 2 (diabetes mellitus, type 2) Status: Chronic (10) Chronic obstructive lung disease Status: Chronic History of Present Illness Date of Admission: 10/12/20 Chief Complaint: Elevated INR, acute anemia The patient is a 80 year old M [] Past Medical History Past Medical History (Chronic Problems): Chronic Problems Chronic respiratory failure with hypoxia (Chronic) Chronic a-fib (Chronic) Pulmonary hypertension (Chronic) mild Coronary artery disease (Chronic) stent placement 04/12 Acute on chronic renal failure (Chronic) Dilated cardiomyopathy (Chronic) EF 30 % Obstructive sleep apnea (Chronic) Cerebrovascular disease (Chronic) Schizoaffective disorder (Chronic) Acute cerebrovascular accident (Chronic) CAD (coronary artery disease) (Chronic) mechanical prosthetic aortic valve replacement (Chronic) Hyperlipidemia (Chronic) DM type 2 (diabetes mellitus, type 2) (Chronic) Chronic obstructive lung disease (Chronic) Allergies ticagrelor [From Brilinta] Allergy (Verified 10/12/20 18:40) WEAKNESS Home Medications: Ambulatory Orders Medication Instructions Recorded Amiodarone HCl 200 mg PO DAILY 06/05/20 Atorvastatin Calcium [Lipitor] 80 mg PO QHS 06/05/20 Budesonide Aerosol [Pulmicort 0.5 mg INHALATION BID 06/05/20 Respules] Clopidogrel Bisulfate [Plavix] 75 mg PO DAILY 06/05/20 Levothyroxine [Synthroid] 50 mcg PO DAILY 06/05/20 Metoprolol(XL)Succ [Toprol Xl 50 mg PO DAILY 06/05/20 (Beta Damir)] Omeprazole 20 mg PO BID 06/05/20 Docusate Sodium 100 mg PO BID 08/22/20 Nitroglycerin SL (ED ONLY) 0.4 mg SUBLINGUAL PRN PRN 08/22/20 [Nitrostat] Senna [Senokot] 1 tab PO DAILY 08/22/20 Mag Hydrox/Aluminum Hyd/Simeth 30 ml PO Q4H PRN PRN 09/01/20 [Alum-Mag Hydroxide-Simeth Susp] Acetaminophen [Tylenol Tablet] 325 mg PO Q6H PRN PRN tab 09/14/20 Finasteride [Proscar] 5 mg PO DAILY tab 09/14/20 Insulin Glargine [Lantus SoloStar 22 units SC QHS pen 09/14/20 Pen] Ipratropium/Albuterol Sulfate 3 ml INHALATION Q4H.RT ampul.neb 09/14/20 [Duoneb] Tamsulosin HCl [Flomax] 0.8 mg PO DAILY@0830 cap 09/14/20 Benzonatate [Tessalon Perle] 100 mg PO TID PRN PRN 10/12/20 Furosemide [Lasix] 40 mg PO BID 10/12/20 Guaifenesin Dm [Robitussin Dm] 10 ml PO Q4H PRN 10/12/20 Insulin Lispro [Humalog] 0 unit SC ACHS 10/12/20 Melatonin 5 mg PO QHS PRN 10/12/20 Warfarin [Coumadin] 3 mg PO DAILY 10/12/20 Surgical History: cholecystectomy, - - Bladder resection and aortic valve repla cement Psychiatric History: Bipolar Lives: Alf Smoking Status: Former smoker Alcohol: None Drugs: None - *Family History Maternal History Items: Unknown - He does not know any biological history of either paren t as he was raised in an orphanage Review of Systems Constitutional: Reports: Weakness, Fatigue. Denies: Chills, Fever, Weight Change HEENT: Denies: Head Aches, Sinus Congestion, Sinus Drainage Cardiovascular: Reports: Edema - Bilateral lower extremities, nonpitting, Syncope - Approximately 3 days ago per patient. Denies: Chest Pain, Palpitations Respiratory: Reports: Cough. Denies: Shortness of breath at rest, Sputum production Gastrointestinal: Denies: Abdominal Pain, Nausea, Vomiting Genitourinary: Denies: Dysuria Musculoskeletal: Denies: Joint Pain, Joint Tenderness Skin: Reports: - - Severe bruising to lumbar area, bilateral buttocks, bilateral legs and bilateral arms. Denies: Rash, Wounds Neurological: Denies: Numbness, Tingling, Focal weakness Psychiatric: Denies: Anxiety, Depression, Homicidal Ideations, Suicidal Ideations Hematologic/ Lymphatic: Reports: Easy Bruising, Easy Bleeding VTE Information - Inpt Only VTE Present on Admission: No VTE Mechan Device Prophylaxis: SCD's VTE Pharm Prophylaxis ordered?: No Reason prophylaxis not ordered:: Medical Contraindication - Elevated INR 12.9 Patient Problems: Active and Suspected Problems Acute blood loss anemia (Acute) Systolic CHF (Acute) Symptomatic anemia (Acute) Congestive heart failure (Acute) Hypotension (Acute) Supratherapeutic INR (Acute) - Physical Exam Vitals/I&O's: Vital Signs Temp Pulse Resp BP Pulse Ox 98.1 F 73 21 H 96/66 98 10/12/20 21:12 10/12/20 21:12 10/12/20 21:12 10/12/20 21:12 10/12/20 21:12 Oxygen Flow Rate (L/min) 2.5 Oxygen Delivery Method Nasal Cannula Weight: 227 lb 1.218 oz Body Mass Index (BMI) 34.5 Finger Stick Blood Glucose 188 Intake and Output for Last 24 Hours 10/10/20 10/11/20 10/12/20 23:59 23:59 23:59 Intake Total 1000 / 1000 Balance 1000 / 1000 General: Alert, Oriented x3, Cooperative HEENT: Atraumatic, PERRLA, EOMI, Normocephalic Neck: Supple, No JVD, Negative Carotid Bruits Lungs: Tachypneic, Wheezes Cardiovascular: Regular rate, Regular Rhythm, Normal S1, Normal S2, No murmurs Abdomen: Bowel Sounds Present, Soft, Non Tender Extremities: Capillary Refill Less than 3 Seconds, Edema, Peripheral Pulses Normal Skin: No rashes, No breakdown, - - Extensive bruising to lumbar area, buttocks and all extremities Musculoskeletal: No Tenderness to Palpation of Joints or Extremities Neurological: Cranial nerves II-XII grossly intact Psych/Mental Status: Appropriate, Flat Affect Microbiology Past 72 Hours 10/12/20 19:00 Stool Stool Occult Blood (HESHAM) - Final Occult Blood Positive Laboratory Results 10/12/20 19:00: WBC 5.8, RBC 2.69 L, Hgb 6.7 L, Hct 22.2 L, MCV 82.5, MCH 24.9 L , MCHC 30.2 L, RDW Std Deviation 59.7 H, RDW Coeff of Yessi 20.2 H, Plt Count 162, MPV 10.9, Immature Gran % (Auto) 0.300, Neut % (Auto) 79.4 H, Lymph % (Auto) 9.7 L, [place] % (Auto) 10.2 H, Eos % (Auto) 0.2, Baso % (Auto) 0.2, Absolute Neuts (auto) 4.6, Absolute Lymphs (auto) 0.56 L, Nucleated RBC % 0.3, Differential Comment SCANNED 10/12/20 19:00: PT 99.9 H, INR 12.9 H* 10/12/20 19:00: Sodium 131 L, Potassium 5.8 H, Chloride 100, Carbon Dioxide 23.0, Anion Gap 8, BUN 109 H*, Creatinine 4.01 H, Estim Creat Clear Calc 14.45, Est GFR (MDRD) Af Amer 19 L, Est GFR (MDRD) Non-Af 15 L, BUN/Creatinine Ratio 27.2 H, Glucose 170 H, Calcium 8.4 L, Total Bilirubin 1.10 H, AST 73 H, ALT 57, Alkaline Phosphatase 251 H, Troponin I 0.028, Total Protein 6.1 L, Albumin 2.1 L , Globulin 4.0, Albumin/Globulin Ratio 0.5 L 10/12/20 19:00: Lactic Acid 2.0 10/12/20 19:00: Blood Type B POSITIVE, Antibody Screen NEGATIVE 10/12/20 19:00: Crossmatch See Detail Assessment/Plan All Active Problems Acute blood loss anemia (Acute) Systolic CHF (Acute) Symptomatic anemia (Acute) Congestive heart failure (Acute) Hypotension (Acute) Hyperkalemia (Acute) GI bleed (Resolved) Supratherapeutic INR (Acute) Gross hematuria (Acute) Anticoagulation goal of INR 2.5 to 3.5 (Acute) Facial droop (Resolved) 1.Acute Blood Loss Anemia -Type and cross, transfuse 1 unit packed red blood cells -CBC in a.m. -Type and hold 1 unit PRBCs 2.Systolic Congestive Heart Failure -IV Lasix prior to blood administration -Lasix 40 mg IV twice daily 3. Supratherapeutic INR -Vitamin K 5 mg p.o. hold x1 given in ER -Hold Coumadin, INR daily. 4. Chronic A-Fib -EKG shows A. fib rate controlled HR 82 -Continue home medications -Patient placed on telemetry 5. Coronary Artery Disease -Continue home medication regimen 6. Obstructive Sleep Apnea -Does not wear CPAP at home, O2 supplementation per protocol 7. Mechanical prosthetic aortic valve replacement -Coumadin on hold due to INR 12.9. -Obtain PT/INR daily -Restart Coumadin once INR therapeutic 8. Hyperlipidemia -Continue home medication regimen 9. Diabetes Mellitus Type II -Continue home dose Lantus. -AC at bedtime checks with sliding scale insulin 10. COPD -Albuterol and DuoNeb nebulizers ordered as needed. <Aleksander Landreos - Last Filed: 10/12/20 22:30> History of Present Illness The patient is a 80 year old M [] Past Medical History Allergies ticagrelor [From Brilinta] Allergy (Verified 10/12/20 18:40) WEAKNESS - Physical Exam Vitals/I&O's: Vital Signs Temp Pulse Resp BP Pulse Ox 97.5 F L 82 20 H 101/80 100 10/12/20 21:53 10/12/20 21:53 10/12/20 21:53 10/12/20 21:53 10/12/20 21:53 Oxygen Flow Rate (L/min) 2 Oxygen Delivery Method Nasal Cannula Weight: 216 lb 14.958 oz Body Mass Index (BMI) 33.0 Finger Stick Blood Glucose 188 Intake and Output for Last 24 Hours 10/10/20 10/11/20 10/12/20 23:59 23:59 23:59 Intake Total 1000 / 1000 Balance 1000 / 1000 Microbiology Past 72 Hours 10/12/20 19:00 Stool Stool Occult Blood (HESHAM) - Final Occult Blood Positive Laboratory Results 10/12/20 19:00: WBC 5.8, RBC 2.69 L, Hgb 6.7 L, Hct 22.2 L, MCV 82.5, MCH 24.9 L , MCHC 30.2 L, RDW Std Deviation 59.7 H, RDW Coeff of Yessi 20.2 H, Plt Count 162, MPV 10.9, Immature Gran % (Auto) 0.300, Neut % (Auto) 79.4 H, Lymph % (Auto) 9.7 L, [place] % (Auto) 10.2 H, Eos % (Auto) 0.2, Baso % (Auto) 0.2, Absolute Neuts (auto) 4.6, Absolute Lymphs (auto) 0.56 L, Nucleated RBC % 0.3, Differential Comment SCANNED 10/12/20 19:00: PT 99.9 H, INR 12.9 H* 10/12/20 19:00: Sodium 131 L, Potassium 5.8 H, Chloride 100, Carbon Dioxide 23.0, Anion Gap 8, BUN 109 H*, Creatinine 4.01 H, Estim Creat Clear Calc 14.45, Est GFR (MDRD) Af Amer 19 L, Est GFR (MDRD) Non-Af 15 L, BUN/Creatinine Ratio 27.2 H, Glucose 170 H, Calcium 8.4 L, Total Bilirubin 1.10 H, AST 73 H, ALT 57, Alkaline Phosphatase 251 H, Troponin I 0.028, Total Protein 6.1 L, Albumin 2.1 L , Globulin 4.0, Albumin/Globulin Ratio 0.5 L 10/12/20 19:00: Lactic Acid 2.0 10/12/20 19:00: Blood Type B POSITIVE, Antibody Screen NEGATIVE 10/12/20 19:00: Crossmatch See Detail 10/12/20 19:00: Total Creatine Kinase Pending 10/12/20 19:00: B-Natriuretic Peptide Pending 10/12/20 19:02: Crossmatch See Detail Current Medications Acetaminophen (Acetaminophen 325 Mg Tablet) 650 mg PO Q6H PRN PRN PRN Reason: Pain Score 1-10/Temp > 100.7 F Albuterol Sulfate (Albuterol 2.5 Mg/3 Ml Vial.Neb.) 2.5 mg INHALATION Q2H PRN PRN PRN Reason: SOB/Wheezing Albuterol/Ipratropium (Ipratropium/Albuterol Sulfate 3 Ml Ampul.Neb) 3 ml INHALATION Q4H.RT EDD Amiodarone HCl (Amiodarone 200 Mg Tablet) 200 mg PO DAILYCM EDD Atorvastatin Calcium (Atorvastatin Calcium 80 Mg Tablet) 80 mg PO QHS EDD Docusate Sodium (Docusate Sodium 100 Mg Capsule) 100 mg PO BID EDD Finasteride (Finasteride 5 Mg Tablet) 5 mg PO DAILY EDD Furosemide (Furosemide 40 Mg/4 Ml Vial) 40 mg IV BID@1000,1800 EDD Guaifenesin (Guaifenesin Dm 10 Ml Udc) 10 ml PO Q4 [facility] Sodium Chloride () 500 mls @ 15 mls/hr IV PRN PRN PRN Reason: Blood Transfusion Sodium Chloride () 250 mls @ 15 mls/hr IV .[id number] PRN PRN Reason: Saline Flush Insulin Glargine (Insulin Glargine 100 Units/Ml Pen) 22 units SC QHS EDD Insulin Human Lispro (Insulin Lispro 100 Unit/Ml Insuln.Pen) 0 unit SC ACHS EDD; Protocol Levothyroxine Sodium (Levothyroxine 50 Mcg Tablet) 50 mcg PO DAILY@0600 [facility] Melatonin (Melatonin 10 Mg Tablet) 5 mg PO QHS PRN PRN Reason: SLEEP Metoprolol Succinate (Metoprolol(Xl)Succ 50 Mg Tablet) 50 mg PO DAILY [facility] Ondansetron HCl (Ondansetron 4 Mg/2 Ml Vial) 4 mg IV Q8H PRN PRN PRN Reason: NAUSEA/VOMITING Pantoprazole Sodium (Pantoprazole Sodium 20 Mg Tablet) 20 mg PO BID [facility] Senna (Senna Tablet) 1 tablet PO DAILY [facility] Sodium Chloride (0.9% Saline Lock 10 Ml Syringe) 10 - 40 ml IV UD PRN PRN Reason: SALINE FLUSH Tamsulosin HCl (Tamsulosin Hcl 0.4 Mg Capsule) 0.8 mg PO DAILY@0830 [facility] Assessment/Plan Patient seen and examined independently by myself and agree with above assessment and plan
--- NOTE | 2020-10-12 22:12 | EKG12_ITS ---
Test Reason : AM EKG Blood Pressure : / mmHG Vent. Rate : 072 BPM Atrial Rate : 170 BPM P-R Int : 000 ms QRS Dur : 196 ms QT Int : 474 ms P-R-T Axes : 000 -75 099 degrees QTc Int : 519 ms Atrial Flutter Left axis deviation Non-specific intra-ventricular conduction block Abnormal ECG When compared with ECG of 12-OCT-2020 23:42, MANUAL COMPARISON REQUIRED, DATA IS UNCONFIRMED Confirmed by DELORES RESENDEZ, JAMES ([id number]), newspaper or periodical editor DEVAN LOVE ([id number]) on 10/15/2020 12:44:21 PM Referred By: WENDY Confirmed By:CULLEN ESTRELLA MD
[2020-10-12 22:39] LABS: BNP,B-Type NATRIURETIC PEPTIDE 713.1 pg/mL (0-100)
[2020-10-12 22:53] LABS: CPK Total, Creatine Kinase 110 U/L (39-308)
[2020-10-12 23:07] LABS: Reflex Lactate? Y
[2020-10-12] MEDS: Docusate Sodium 100 MG Capsule PO (23:12)
[2020-10-12] MEDS: Pantoprazole Sodium 20 MG Tablet PO (23:12)
[2020-10-12] MEDS: Atorvastatin Calcium 80 MG Tablet PO (23:12)
[2020-10-12] MEDS: Insulin Lispro 100 UNIT/ML INSULN.PEN SC (23:14)
[2020-10-12 23:21] LABS: Bedside Glucose 164 mg/dL (70-110)
[2020-10-13] VITALS (33 sets, daily range): BP systolic 74–99; BP diastolic 47–72; PULSE 66–88; RESP 17–30; TEMP 35.9–36.8; O2SAT 95–100
[2020-10-13] MEDS: Furosemide 40 MG/4 ML Vial IV (01:42)
[2020-10-13] MEDS: guaiFENesin Dm 10 ML UDC PO ×6 (01:48→21:06)
[2020-10-13 02:30] LABS: Lactic Acid 1.5 mmol/L (0.4-1.9)
[2020-10-13] MEDS: Ipratropium/Albuterol Sulfate 3 ML AMPUL.NEB INHALATION ×5 (03:29→22:52)
[2020-10-13] MEDS: Acetaminophen 325 MG Tablet 650 MG PO (04:57)
[2020-10-13] MEDS: Levothyroxine 50 MCG Tablet PO (04:58)
[2020-10-13 05:00] LABS: Hematocrit 25.6 % (40-54); Hemoglobin 7.7 g/dL (13.0-16.5); Mean Corp Hgb Conc 30.1 g/dL (32-36); Mean Corpuscular Hgb 25.5 pg (27.0-32.0); Mean Corpuscular Volume 84.8 fL (80-94); Mean Platelet Vol. 10.6 fl (6.2-12.0); Platelet Count 162 K/mm3 (150-450); RBC Distribution Width CV 19.4 % (11.6-14.6); RBC Distribution Width SD 59.7 fl (35.1-43.9); Red Blood Count 3.02 M/mm3 (4.6-6.2); White Blood Count 5.5 K/mm3 (4.4-11.0)
[2020-10-13 05:10] LABS: Prothrombin Time (Protime)PT. 87.5 SECONDS (11.7-14.9)
[2020-10-13 05:32] LABS: ALB/GLOB Ratio 0.6 RATIO (0.9-2.4); AST(SGOT) 46 U/L (15-37); Alanine Aminotransfer ALT/SGPT 55 U/L (16-61); Albumin, Serum 2.1 g/dL (3.2-5.0); Alkaline Phosphatase 258 U/L (45-117); Anion Gap 8 (5-15); BUN 107 mg/dL (7-18); BUN/Creat Ratio 28.5 RATIO (10-20); Calcium,Total 8.3 mg/dL (8.5-10.1); Chloride 102 mmol/L (98-107); Creatinine, Serum 3.75 mg/dL (0.70-1.30); EST Glomerular Filtration Rate 17 mL/min (>60); Est Glom Filt Rate - Afr Amer 20 mL/min (>60); Estimated Creatinine Clearance 15.45 ml/min; Globulin 3.8 g/dL (2.2-4.2); Glucose 162 mg/dL (74-106); Protein, Total 5.9 g/dL (6.4-8.2); Sodium Level 133 mmol/L (136-145)
[2020-10-13 07:01] LABS: Bedside Glucose 135 mg/dL (70-110)
--- NOTE | 2020-10-13 09:15 | NURSING ---
Attempted 2nd IV 3 times without success.
[2020-10-13] MEDS: Docusate Sodium 100 MG Capsule PO ×2 (09:33→21:04)
[2020-10-13] MEDS: Senna Tablet 1 TABLET PO (09:33)
[2020-10-13] MEDS: Amiodarone 200 MG Tablet PO (09:34)
[2020-10-13] MEDS: Finasteride 5 MG Tablet PO (09:34)
[2020-10-13] MEDS: Tamsulosin HCl 0.4 MG Capsule 0.8 MG PO (09:34)
[2020-10-13] MEDS: Pantoprazole Sodium 20 MG Tablet PO ×2 (09:34→21:04)
[2020-10-13] MEDS: Glucerna Shake 120 ML LIQUID PO ×3 (09:35→17:09)
--- NOTE | 2020-10-13 10:00 | EKG12_ITS ---
Test Reason : DYSRYTHMIA Blood Pressure : / mmHG Vent. Rate : 071 BPM Atrial Rate : 084 BPM P-R Int : 000 ms QRS Dur : 200 ms QT Int : 482 ms P-R-T Axes : 000 -78 098 degrees QTc Int : 523 ms Atrial fibrillation Left axis deviation Non-specific intra-ventricular conduction block Abnormal ECG When compared with ECG of 12-OCT-2020 18:51, MANUAL COMPARISON REQUIRED, DATA IS UNCONFIRMED Confirmed by DELORES RESENDEZ, JAMES ([id number]), video effects editor DEVAN LOVE ([id number]) on 10/15/2020 12:44:34 PM Referred By: WENDY Confirmed By:CULLEN ESTRELLA MD
[2020-10-13] MEDS: Insulin Lispro 100 UNIT/ML INSULN.PEN SC ×3 (12:07→21:05)
--- NOTE | 2020-10-13 12:22 | CASEMGMT ---
Pt qualifies for Palliative c/s via [facility] palliative screening tool and Dr. Frye is agreeable for c/s. Palliative referral faxed and call to Palliative with referral. Ashlie FIORE CM
[2020-10-13 12:35] LABS: Bedside Glucose 163 mg/dL (70-110)
--- NOTE | 2020-10-13 13:31 | NURSING ---
Student nurse documentation reviewed.
--- NOTE | 2020-10-13 14:41 | CASEMGMT ---
Readmission chart review: Pt was initially admitted by Dr. Roblero 09/01-09/14/20 for Gross hematuria and had to be bridged back onto coumadin prior to discharge back to [facility]. Pt then returned to [facility] ED from [facility] on 10/12/20 for Acute anemia/elev INR. Pt's INR on arrival was 12.9 and hgb was 6.7. Pt is on coumadin for prosthetic aortic valve replacement and afib. Pt is still in afib at this time and has been given 2units PRBC's with one currently infusing and one more ordered to be given. Pt's last INR at [facility] was reportedly 09/28/20 with a result of 2.0. Pt has been hypotensive and is currently on 2L nc. CM to follow. Ashlie FIORE CM
--- NOTE | 2020-10-13 14:53 | PCM.PN.HOSP ---
<Isauro Sherman - Last Filed: 10/13/20 14:53> Patient Problems: Active and Suspected Problems Acute blood loss anemia (Acute) Systolic CHF (Acute) Symptomatic anemia (Acute) Congestive heart failure (Acute) Hypotension (Acute) Supratherapeutic INR (Acute) Subjective: Patient is a 80 y/o male who is lying in bed, A&O x2. Patient appears in acute distress, is diaphoretic, hypotensive and tachypneic. Objective: Microbiology 10/12/20 19:00 Stool Stool Occult Blood (HESHAM) - Final Occult Blood Positive Microbiology Past 72 Hours 10/12/20 19:00 Stool Occult Blood (HESHAM) - Final Stool Occult Blood Positive Laboratory Tests Past 24 Hrs 10/12/20 10/12/20 10/12/20 19:00 19:00 19:00 WBC 5.8 RBC 2.69 L Hgb 6.7 L Hct 22.2 L MCV 82.5 MCH 24.9 L MCHC 30.2 L RDW Std Deviation 59.7 H RDW Coeff of Yessi 20.2 H Plt Count 162 MPV 10.9 Immature Gran % (Auto) 0.300 Neut % (Auto) 79.4 H Lymph % (Auto) 9.7 L [place] % (Auto) 10.2 H Eos % (Auto) 0.2 Baso % (Auto) 0.2 Absolute Neuts (auto) 4.6 Absolute Lymphs (auto) 0.56 L Nucleated RBC % 0.3 Differential Comment SCANNED PT 99.9 H INR 12.9 H* Sodium 131 L Potassium 5.8 H Chloride 100 Carbon Dioxide 23.0 Anion Gap 8 BUN 109 H* Creatinine 4.01 H Estim Creat Clear Calc 14.45 Est GFR (MDRD) Af Amer 19 L Est GFR (MDRD) Non-Af 15 L BUN/Creatinine Ratio 27.2 H Glucose 170 H Lactic Acid Calcium 8.4 L Total Bilirubin 1.10 H AST 73 H ALT 57 Alkaline Phosphatase 251 H Total Creatine Kinase Troponin I 0.028 B-Natriuretic Peptide Total Protein 6.1 L Albumin 2.1 L Globulin 4.0 Albumin/Globulin Ratio 0.5 L Blood Type Antibody Screen Crossmatch 10/12/20 10/12/20 10/12/20 19:00 19:00 19:00 WBC RBC Hgb Hct MCV MCH MCHC RDW Std Deviation RDW Coeff of Yessi Plt Count MPV Immature Gran % (Auto) Neut % (Auto) Lymph % (Auto) [place] % (Auto) Eos % (Auto) Baso % (Auto) Absolute Neuts (auto) Absolute Lymphs (auto) Nucleated RBC % Differential Comment PT INR Sodium Potassium Chloride Carbon Dioxide Anion Gap BUN Creatinine Estim Creat Clear Calc Est GFR (MDRD) Af Amer Est GFR (MDRD) Non-Af BUN/Creatinine Ratio Glucose Lactic Acid 2.0 Calcium Total Bilirubin AST ALT Alkaline Phosphatase Total Creatine Kinase Troponin I B-Natriuretic Peptide Total Protein Albumin Globulin Albumin/Globulin Ratio Blood Type B POSITIVE Antibody Screen NEGATIVE Crossmatch See Detail 10/12/20 10/12/20 10/12/20 19:00 19:00 19:02 WBC RBC Hgb Hct MCV MCH MCHC RDW Std Deviation RDW Coeff of Yessi Plt Count MPV Immature Gran % (Auto) Neut % (Auto) Lymph % (Auto) [place] % (Auto) Eos % (Auto) Baso % (Auto) Absolute Neuts (auto) Absolute Lymphs (auto) Nucleated RBC % Differential Comment PT INR Sodium Potassium Chloride Carbon Dioxide Anion Gap BUN Creatinine Estim Creat Clear Calc Est GFR (MDRD) Af Amer Est GFR (MDRD) Non-Af BUN/Creatinine Ratio Glucose Lactic Acid Calcium Total Bilirubin AST ALT Alkaline Phosphatase Total Creatine Kinase 110 Troponin I B-Natriuretic Peptide 713.1 H Total Protein Albumin Globulin Albumin/Globulin Ratio Blood Type Antibody Screen Crossmatch See Detail 10/12/20 10/13/20 10/13/20 19:02 01:55 01:55 WBC RBC Hgb Hct MCV MCH MCHC RDW Std Deviation RDW Coeff of Yessi Plt Count MPV Immature Gran % (Auto) Neut % (Auto) Lymph % (Auto) [place] % (Auto) Eos % (Auto) Baso % (Auto) Absolute Neuts (auto) Absolute Lymphs (auto) Nucleated RBC % Differential Comment PT INR Sodium Potassium Chloride Carbon Dioxide Anion Gap BUN Creatinine Estim Creat Clear Calc Est GFR (MDRD) Af Amer Est GFR (MDRD) Non-Af BUN/Creatinine Ratio Glucose Lactic Acid 1.5 Calcium Total Bilirubin AST ALT Alkaline Phosphatase Total Creatine Kinase Troponin I 0.027 B-Natriuretic Peptide Total Protein Albumin Globulin Albumin/Globulin Ratio Blood Type Antibody Screen Crossmatch See Detail 10/13/20 10/13/20 10/13/20 04:54 04:54 04:54 WBC 5.5 RBC 3.02 L Hgb 7.7 L Hct 25.6 L MCV 84.8 MCH 25.5 L MCHC 30.1 L RDW Std Deviation 59.7 H RDW Coeff of Yessi 19.4 H Plt Count 162 MPV 10.6 Immature Gran % (Auto) Neut % (Auto) Lymph % (Auto) [place] % (Auto) Eos % (Auto) Baso % (Auto) Absolute Neuts (auto) Absolute Lymphs (auto) Nucleated RBC % Differential Comment PT 87.5 H INR 11.0 H* Sodium 133 L Potassium 5.0 Chloride 102 Carbon Dioxide 23.0 Anion Gap 8 BUN 107 H* Creatinine 3.75 H Estim Creat Clear Calc 15.45 Est GFR (MDRD) Af Amer 20 L Est GFR (MDRD) Non-Af 17 L BUN/Creatinine Ratio 28.5 H Glucose 162 H Lactic Acid Calcium 8.3 L Total Bilirubin 1.10 H AST 46 H ALT 55 Alkaline Phosphatase 258 H Total Creatine Kinase Troponin I B-Natriuretic Peptide Total Protein 5.9 L Albumin 2.1 L Globulin 3.8 Albumin/Globulin Ratio 0.6 L Blood Type Antibody Screen Crossmatch 10/13/20 10/13/20 04:54 07:54 WBC RBC Hgb Hct MCV MCH MCHC RDW Std Deviation RDW Coeff of Yessi Plt Count MPV Immature Gran % (Auto) Neut % (Auto) Lymph % (Auto) [place] % (Auto) Eos % (Auto) Baso % (Auto) Absolute Neuts (auto) Absolute Lymphs (auto) Nucleated RBC % Differential Comment PT INR Sodium Potassium Chloride Carbon Dioxide Anion Gap BUN Creatinine Estim Creat Clear Calc Est GFR (MDRD) Af Amer Est GFR (MDRD) Non-Af BUN/Creatinine Ratio Glucose Lactic Acid Calcium Total Bilirubin AST ALT Alkaline Phosphatase Total Creatine Kinase Troponin I 0.025 0.025 B-Natriuretic Peptide Total Protein Albumin Globulin Albumin/Globulin Ratio Blood Type Antibody Screen Crossmatch Vitals/I&O's: Vital Signs Temp Pulse Resp BP Pulse Ox 97.3 F L 75 22 H 98/68 100 10/13/20 13:49 10/13/20 14:51 10/13/20 14:51 10/13/20 13:49 10/13/20 13:49 Oxygen Flow Rate (L/min) 2 Oxygen Delivery Method Nasal Cannula Weight: 217 lb 2.485 oz Body Mass Index (BMI) 33.0 Finger Stick Blood Glucose 188 Intake and Output for Last 24 Hours 10/11/20 10/12/20 10/13/20 23:59 23:59 23:59 Intake Total 1000 / 1120 1171 / 1171 Output Total 650 / 650 Balance 1000 / 770 521 / 521 General: Alert, Confused, - - In acute distress HEENT: Atraumatic, PERRLA, EOMI, Normocephalic Neck: Supple, No JVD, Negative Carotid Bruits Lungs: Diminished, - - Lungs sound wet and congested auscultation. Tachypenic. Cardiovascular: Regular rate, - - Hypotensive Abdomen: Distended, Rigid, Tender Extremities: No edema, Capillary Refill Less than 3 Seconds Skin: No rashes, No breakdown Musculoskeletal: No Tenderness to Palpation of Joints or Extremities Neurological: Cranial nerves II-XII grossly intact Psych/Mental Status: Anxious Microbiology Past 72 Hours 10/12/20 19:00 Stool Stool Occult Blood (HESHAM) - Final Occult Blood Positive Laboratory Results 10/12/20 19:00: WBC 5.8, RBC 2.69 L, Hgb 6.7 L, Hct 22.2 L, MCV 82.5, MCH 24.9 L, MCHC 30.2 L, RDW Std Deviation 59.7 H, RDW Coeff of Yessi 20.2 H, Plt Count 162, MPV 10.9, Immature Gran % (Auto) 0.300, Neut % (Auto) 79.4 H, Lymph % (Auto) 9.7 L, [place] % (Auto) 10.2 H, Eos % (Auto) 0.2, Baso % (Auto) 0.2, Absolute Neuts (auto) 4.6, Absolute Lymphs (auto) 0.56 L, Nucleated RBC % 0.3, Differential Comment SCANNED 10/12/20 19:00: PT 99.9 H, INR 12.9 H* 10/12/20 19:00: Sodium 131 L, Potassium 5.8 H, Chloride 100, Carbon Dioxide 23.0, Anion Gap 8, BUN 109 H*, Creatinine 4.01 H, Estim Creat Clear Calc 14.45, Est GFR (MDRD) Af Amer 19 L, Est GFR (MDRD) Non-Af 15 L, BUN/Creatinine Ratio 27.2 H, Glucose 170 H, Calcium 8.4 L, Total Bilirubin 1.10 H, AST 73 H, ALT 57, Alkaline Phosphatase 251 H, Troponin I 0.028, Total Protein 6.1 L, Albumin 2.1 L, Globulin 4.0, Albumin/Globulin Ratio 0.5 L 10/12/20 19:00: Lactic Acid 2.0 10/12/20 19:00: Blood Type B POSITIVE, Antibody Screen NEGATIVE 10/12/20 19:00: Crossmatch See Detail 10/12/20 19:00: Total Creatine Kinase 110 10/12/20 19:00: B-Natriuretic Peptide 713.1 H 10/12/20 19:02: Crossmatch See Detail 10/12/20 19:02: Crossmatch See Detail 10/12/20 23:10: POC Glucose 164 H 10/13/20 01:55: Lactic Acid 1.5 10/13/20 01:55: Troponin I 0.027 10/13/20 04:54: WBC 5.5, RBC 3.02 L, Hgb 7.7 L, Hct 25.6 L, MCV 84.8, MCH 25.5 L, MCHC 30.1 L, RDW Std Deviation 59.7 H, RDW Coeff of Yessi 19.4 H, Plt Count 162, MPV 10.6 10/13/20 04:54: PT 87.5 H, INR 11.0 H* 10/13/20 04:54: Sodium 133 L, Potassium 5.0, Chloride 102, Carbon Dioxide 23.0, Anion Gap 8, BUN 107 H*, Creatinine 3.75 H, Estim Creat Clear Calc 15.45, Est GFR (MDRD) Af Amer 20 L, Est GFR (MDRD) Non-Af 17 L, BUN/Creatinine Ratio 28.5 H, Glucose 162 H, Calcium 8.3 L, Total Bilirubin 1.10 H, AST 46 H, ALT 55, Alkaline Phosphatase 258 H, Total Protein 5.9 L, Albumin 2.1 L, Globulin 3.8, Albumin/Globulin Ratio 0.6 L 10/13/20 04:54: Troponin I 0.025 10/13/20 06:49: POC Glucose 135 H 10/13/20 07:54: Troponin I 0.025 10/13/20 12:02: POC Glucose 163 H Current Medications Acetaminophen (Acetaminophen 325 Mg Tablet) 650 mg PO Q6H PRN PRN PRN Reason: Pain Score 1-10/Temp > 100.7 F Last Admin: 10/13/20 04:57 Dose: 650 mg Documented by: Albuterol Sulfate (Albuterol 2.5 Mg/3 Ml Vial.Neb.) 2.5 mg INHALATION Q2H PRN PRN PRN Reason: SOB/Wheezing Albuterol/Ipratropium (Ipratropium/Albuterol Sulfate 3 Ml Ampul.Neb) 3 ml INHALATION Q4H.RT [facility] Last Admin: 10/13/20 14:50 Dose: 3 ml Documented by: Amiodarone HCl (Amiodarone 200 Mg Tablet) 200 mg PO DAILYCM [facility] Last Admin: 10/13/20 09:34 Dose: 200 mg Documented by: Atorvastatin Calcium (Atorvastatin Calcium 80 Mg Tablet) 80 mg PO QHS [facility] Last Admin: 10/12/20 23:12 Dose: 80 mg Documented by: Docusate Sodium (Docusate Sodium 100 Mg Capsule) 100 mg PO BID [facility] Last Admin: 10/13/20 09:33 Dose: 100 mg Documented by: Finasteride (Finasteride 5 Mg Tablet) 5 mg PO DAILY [facility] Last Admin: 10/13/20 09:34 Dose: 5 mg Documented by: Guaifenesin (Guaifenesin Dm 10 Ml Udc) 10 ml PO Q4 [facility] Last Admin: 10/13/20 14:08 Dose: 10 ml Documented by: Sodium Chloride () 500 mls @ 15 mls/hr IV PRN PRN PRN Reason: Blood Transfusion Sodium Chloride () 250 mls @ 15 mls/hr IV .[id number] PRN PRN Reason: Saline Flush Insulin Glargine (Insulin Glargine 100 Units/Ml Pen) 22 units SC QHS [facility] Last Admin: 10/12/20 23:11 Dose: 22 u Documented by: Insulin Human Lispro (Insulin Lispro 100 Unit/Ml Insuln.Pen) 0 unit SC ACHS [facility]; Protocol Last Admin: 10/13/20 12:07 Dose: 1 u Documented by: Levothyroxine Sodium (Levothyroxine 50 Mcg Tablet) 50 mcg PO DAILY@0600 [facility] Last Admin: 10/13/20 04:58 Dose: 50 mcg Documented by: Melatonin (Melatonin 10 Mg Tablet) 5 mg PO QHS PRN PRN Reason: SLEEP Nutritional Formula (Lactose Free) (Glucerna Shake 120 Ml Liquid) 120 ml PO TIDCM [facility] Last Admin: 10/13/20 12:07 Dose: 120 ml Documented by: Ondansetron HCl (Ondansetron 4 Mg/2 Ml Vial) 4 mg IV Q8H PRN PRN PRN Reason: NAUSEA/VOMITING Pantoprazole Sodium (Pantoprazole Sodium 20 Mg Tablet) 20 mg PO BID [facility] Last Admin: 10/13/20 09:34 Dose: 20 mg Documented by: Senna (Senna Tablet) 1 tablet PO DAILY [facility] Last Admin: 10/13/20 09:33 Dose: 1 tablet Documented by: Sodium Chloride (0.9% Saline Lock 10 Ml Syringe) 10 - 40 ml IV UD PRN PRN Reason: SALINE FLUSH Tamsulosin HCl (Tamsulosin Hcl 0.4 Mg Capsule) 0.8 mg PO DAILY@0830 [facility] Last Admin: 10/13/20 09:34 Dose: 0.8 mg Documented by: STROKE Vital Signs/Narrative: Vital Signs Temp Pulse Resp BP Pulse Ox 10/13/20 14:51 75 22 H 10/13/20 13:49 97.3 F L 79 21 H 98/68 100 10/13/20 13:47 97.3 F L 74 24 H 91/59 L 100 10/13/20 13:08 97.2 F L 72 19 H 89/63 L 99 10/13/20 13:00 97.0 F L 79 22 H 89/63 L 100 10/13/20 11:59 80 10/13/20 11:08 97.2 F L 88 20 H 89/61 L 100 10/13/20 10:58 83 17 10/13/20 10:54 97.0 F L 78 25 H 95/56 L 100 Medical Necessity - Tobacco Use Smoking Status: Former smoker Assessment/Plan All Active Problems Acute blood loss anemia (Acute) Systolic CHF (Acute) Symptomatic anemia (Acute) Congestive heart failure (Acute) Hypotension (Acute) Hyperkalemia (Acute) GI bleed (Resolved) Supratherapeutic INR (Acute) Gross hematuria (Acute) Anticoagulation goal of INR 2.5 to 3.5 (Acute) Facial droop (Resolved) Mr. Cameron is a 80 y/o male who was presented to the ED with a chief complaint of dark tarry stools. Patient was admitted for Acute blood loss anemia , Systolic CHF, Hypotension, Hyperkalemia, GI bleed, Supratherapeutic INR and gross hematuria. Upon my evaluation patient was in acute distress with tachypnea, diaphoresis, hypotension, anxiety and a rigid/distended abdomen. 1.Acute Blood Loss Anemia Assessment - 7.7, trending up from admission - Platelets unremarkable - INR 11.0 trending down - RBC 3.02 trending up - + Heme occult stool Plan - 2 units of Leuk-reduced RBC transfused - 4 PRBC ordered - Hold home Warfarin 2) Systolic Congestive Heart Failure Assessment - BNP 713.1 - Troponins not elevated Plan - Lasix on hold due to hypotension 3. Supratherapeutic INR Assessment - 11.0 as of 10/13/2020, down trending - 2 doses of Phytonadione given Plan - Hold daily coumadin - Continue to monitor INR Patient seen by Isauro Galicia PA-C, under the supervision on Dr. Frye <Bharti Frye - Last Filed: 10/13/20 16:33> Vitals/I&O's: Vital Signs Temp Pulse Resp BP Pulse Ox 97.2 F L 73 20 H 93/66 99 10/13/20 16:00 10/13/20 16:00 10/13/20 16:00 10/13/20 16:00 10/13/20 16:00 Oxygen Flow Rate (L/min) 2 Oxygen Delivery Method Nasal Cannula Weight: 98.5 kg Body Mass Index (BMI) 33.0 Finger Stick Blood Glucose 188 Intake and Output for Last 24 Hours 10/11/20 10/12/20 10/13/20 23:59 23:59 23:59 Intake Total 1000 / 1120 1171 / 1171 Output Total 650 / 650 Balance 1000 / 770 521 / 521 General: Alert, Oriented x3, Cooperative, No apparent distress, Well developed, Well nourished, - - In acute distress, evaluated by me later patient is no longer in distress seems more comfortable, has mild confusion but is able to tell me his name, where he is, the month the date and the year. HEENT: Atraumatic, PERRLA, EOMI, Normocephalic, EAC Clear Oral: Moist Mucosa, No Gingival or Mucosal Lesions/ Ulcerations Neck: Supple, Trachea Midline, Thyroid Normal Size and Texture Lungs: Diminished, Rales - Lateral bases, - - New crackles at bases mild tachypnea Cardiovascular: Regular rate, Normal S1, Normal S2, No Ectopic Activity, Murmur, No rub noted, No Gallop, - - Irregular rhythm rate controlled Abdomen: Bowel Sounds Present, Soft, Non Tender, Non-Distended, Obese Extremities: No clubbing, No cyanosis, Edema - Severe bilateral extremity pitting edema 2-3+, - - If occult to palpate peripheral pulses secondary to edema Skin: No rashes, No breakdown Musculoskeletal: No Tenderness to Palpation of Joints or Extremities, Arthritic Changes, - - Crease lean muscle mass Lymphatic: No Cervical, Supraclavicular, or Inguinal Adenopathy Neurological: Cranial nerves II-XII grossly intact, Neuro grossly intact, Muscle tone normal, Coordination normal Psych/Mental Status: Anxious, Flat Affect, - - Perseverating on when he is going to get his defibrillator placed Microbiology Past 72 Hours 10/12/20 19:00 Stool Stool Occult Blood (HESHAM) - Final Occult Blood Positive Laboratory Results 10/12/20 19:00: WBC 5.8, RBC 2.69 L, Hgb 6.7 L, Hct 22.2 L, MCV 82.5, MCH 24.9 L, MCHC 30.2 L, RDW Std Deviation 59.7 H, RDW Coeff of Yessi 20.2 H, Plt Count 162, MPV 10.9, Immature Gran % (Auto) 0.300, Neut % (Auto) 79.4 H, Lymph % (Auto) 9.7 L, [place] % (Auto) 10.2 H, Eos % (Auto) 0.2, Baso % (Auto) 0.2, Absolute Neuts (auto) 4.6, Absolute Lymphs (auto) 0.56 L, Nucleated RBC % 0.3, Differential Comment SCANNED 10/12/20 19:00: PT 99.9 H, INR 12.9 H* 10/12/20 19:00: Sodium 131 L, Potassium 5.8 H, Chloride 100, Carbon Dioxide 23.0, Anion Gap 8, BUN 109 H*, Creatinine 4.01 H, Estim Creat Clear Calc 14.45, Est GFR (MDRD) Af Amer 19 L, Est GFR (MDRD) Non-Af 15 L, BUN/Creatinine Ratio 27.2 H, Glucose 170 H, Calcium 8.4 L, Total Bilirubin 1.10 H, AST 73 H, ALT 57, Alkaline Phosphatase 251 H, Troponin I 0.028, Total Protein 6.1 L, Albumin 2.1 L, Globulin 4.0, Albumin/Globulin Ratio 0.5 L 10/12/20 19:00: Lactic Acid 2.0 10/12/20 19:00: Blood Type B POSITIVE, Antibody Screen NEGATIVE 10/12/20 19:00: Crossmatch See Detail 10/12/20 19:00: Total Creatine Kinase 110 10/12/20 19:00: B-Natriuretic Peptide 713.1 H 10/12/20 19:02: Crossmatch See Detail 10/12/20 19:02: Crossmatch See Detail 10/12/20 23:10: POC Glucose 164 H 10/13/20 01:55: Lactic Acid 1.5 10/13/20 01:55: Troponin I 0.027 10/13/20 04:54: WBC 5.5, RBC 3.02 L, Hgb 7.7 L, Hct 25.6 L, MCV 84.8, MCH 25.5 L, MCHC 30.1 L, RDW Std Deviation 59.7 H, RDW Coeff of Yessi 19.4 H, Plt Count 162, MPV 10.6 10/13/20 04:54: PT 87.5 H, INR 11.0 H* 10/13/20 04:54: Sodium 133 L, Potassium 5.0, Chloride 102, Carbon Dioxide 23.0, Anion Gap 8, BUN 107 H*, Creatinine 3.75 H, Estim Creat Clear Calc 15.45, Est GFR (MDRD) Af Amer 20 L, Est GFR (MDRD) Non-Af 17 L, BUN/Creatinine Ratio 28.5 H, Glucose 162 H, Calcium 8.3 L, Total Bilirubin 1.10 H, AST 46 H, ALT 55, Alkaline Phosphatase 258 H, Total Protein 5.9 L, Albumin 2.1 L, Globulin 3.8, Albumin/Globulin Ratio 0.6 L 10/13/20 04:54: Troponin I 0.025 10/13/20 06:49: POC Glucose 135 H 10/13/20 07:54: Troponin I 0.025 10/13/20 12:02: POC Glucose 163 H Current Medications Acetaminophen (Acetaminophen 325 Mg Tablet) 650 mg PO Q6H PRN PRN PRN Reason: Pain Score 1-10/Temp > 100.7 F Last Admin: 10/13/20 04:57 Dose: 650 mg Documented by: Albuterol Sulfate (Albuterol 2.5 Mg/3 Ml Vial.Neb.) 2.5 mg INHALATION Q2H PRN PRN PRN Reason: SOB/Wheezing Albuterol/Ipratropium (Ipratropium/Albuterol Sulfate 3 Ml Ampul.Neb) 3 ml INHALATION Q4H.RT [facility] Last Admin: 10/13/20 14:50 Dose: 3 ml Documented by: Amiodarone HCl (Amiodarone 200 Mg Tablet) 200 mg PO DAILYCM [facility] Last Admin: 10/13/20 09:34 Dose: 200 mg Documented by: Atorvastatin Calcium (Atorvastatin Calcium 80 Mg Tablet) 80 mg PO QHS [facility] Last Admin: 10/12/20 23:12 Dose: 80 mg Documented by: Docusate Sodium (Docusate Sodium 100 Mg Capsule) 100 mg PO BID [facility] Last Admin: 10/13/20 09:33 Dose: 100 mg Documented by: Finasteride (Finasteride 5 Mg Tablet) 5 mg PO DAILY [facility] Last Admin: 10/13/20 09:34 Dose: 5 mg Documented by: Guaifenesin (Guaifenesin Dm 10 Ml Udc) 10 ml PO Q4 [facility] Last Admin: 10/13/20 14:08 Dose: 10 ml Documented by: Sodium Chloride () 500 mls @ 15 mls/hr IV PRN PRN PRN Reason: Blood Transfusion Sodium Chloride () 250 mls @ 15 mls/hr IV .[id number] PRN PRN Reason: Saline Flush Insulin Glargine (Insulin Glargine 100 Units/Ml Pen) [facility] Last Admin: 10/12/20 23:11 Dose: 22 u Documented by: Insulin Human Lispro (Insulin Lispro 100 Unit/Ml Insuln.Pen) 0 unit SC [facility]; Protocol Last Admin: 10/13/20 12:07 Dose: 1 u Documented by: Levothyroxine Sodium (Levothyroxine 50 Mcg Tablet) 50 mcg PO DAILY@0600 [facility] Last Admin: 10/13/20 04:58 Dose: 50 mcg Documented by: Melatonin (Melatonin 10 Mg Tablet) 5 mg PO QHS PRN PRN Reason: SLEEP Nutritional Formula (Lactose Free) (Glucerna Shake 120 Ml Liquid) 120 ml PO TIDCM [facility] Last Admin: 10/13/20 12:07 Dose: 120 ml Documented by: Ondansetron HCl (Ondansetron 4 Mg/2 Ml Vial) 4 mg IV Q8H PRN PRN PRN Reason: NAUSEA/VOMITING Pantoprazole Sodium (Pantoprazole Sodium 20 Mg Tablet) 20 mg PO BID [facility] Last Admin: 10/13/20 09:34 Dose: 20 mg Documented by: Senna (Senna Tablet) 1 tablet PO DAILY [facility] Last Admin: 10/13/20 09:33 Dose: 1 tablet Documented by: Sodium Chloride (0.9% Saline Lock 10 Ml Syringe) 10 - 40 ml IV UD PRN PRN Reason: SALINE FLUSH Tamsulosin HCl (Tamsulosin Hcl 0.4 Mg Capsule) 0.8 mg PO DAILY@0830 [facility] Last Admin: 10/13/20 09:34 Dose: 0.8 mg Documented by: STROKE Vital Signs/Narrative: Vital Signs Temp Pulse Resp BP Pulse Ox 10/13/20 16:00 97.2 F L 73 20 H 93/66 99 10/13/20 15:00 97.4 F L 74 22 H 95/72 100 10/13/20 14:51 71 20 H 10/13/20 14:50 72 10/13/20 13:49 97.3 F L 79 21 H 98/68 100 10/13/20 13:47 97.3 F L 74 24 H 91/59 L 100 10/13/20 13:08 97.2 F L 72 19 H 89/63 L 99 10/13/20 13:00 97.0 F L 79 22 H 89/63 L 100 Assessment/Plan ASSESSMENT Acute blood loss anemia Hypotension GI bleeding HUONG on CKD stage IIIb Hyperkalemia-resolved Mild hyperbilirubinemia Supratherapeutic INR Anasarca Chronic anticoagulation Permanent atrial fibrillation Mechanical aortic valve HFrEF (EF 30%) in Yaakov to ischemic cardiomyopathy--> decompensated Hyperlipidemia COPD EMERY CAD DM-2 Hypothyroidism GERD Constipation BPH History of hematuria Schizoaffective disorder PLAN -Patient was initially transfused with 1 unit packed red blood cells overnight but due to continued hypotension patient was transfused 2 more units of packed red blood cells today -Blood pressure is improving transfusions -Hold antihypertensives and scheduled Lasix -We will give 40 mg of Lasix IV push after second note of blood is given -10 mg of vitamin K IV push today -Repeat INR in a.m. -Hold Coumadin -Need bridged slowly with heparin if INR drops below 2 -May need to consider consult to general surgery for scopes if he has continued bleeding with a normal INR -Repeat hemoglobin after blood transfusion and in a.m. -Patient requires permanent anticoagulation secondary to aortic valve replacement-mechanical -Monitor for recurrent hematuria -Hold Plavix -Continue amiodarone -Continue levothyroxine -Monitor on telemetry -Chest x-ray in a.m. -Consult palliative care as overall prognosis is extremely poor with recurrent bleeding on Coumadin, severe edema, EF of 35% -Change CODE STATUS to DNR CCA with no intubation this was discussed extensively with his healthcare power of immigration attorney at his last admission and paperwork is [facility] with this [facility]
--- NOTE | 2020-10-13 15:45 | CASEMGMT ---
SW faxed updates to [facility]. Naomi Bernard [employer] ADMINISTRATIVE ASSISTANT
[2020-10-13 17:05] LABS: Bedside Glucose 155 mg/dL (70-110)
[2020-10-13 18:47] LABS: Absolute Lymphocyte Count 0.81 X10^3/uL (0.83-4.51); Absolute Neutrophil Count 4.5 X10^3/uL (2.0-7.7); Basophil# 0.01 X10^3/uL; Basophil% 0.2 % (0-1); Eosinophil# 0.02 X10^3/uL; Eosinophils% 0.3 % (0-5); Hematocrit 28.6 % (40-54); Hemoglobin 8.8 g/dL (13.0-16.5); Lymphocyte # 0.81 X10^3/ul (4.0); Lymphocyte % 13.4 % (19-41); Mean Corp Hgb Conc 30.8 g/dL (32-36); Mean Corpuscular Volume 84.6 fL (80-94); Mean Platelet Vol. 9.9 fl (6.2-12.0); Monocyte# 0.69 X10^3/uL; Monocyte% 11.4 % (0-10); NRBC Flagged by Analyzer 0 % (0-5); Neutrophil # 4.52 X10^3/uL (2.7-7.7); Neutrophil % 74.5 % (47-70); Platelet Count 142 K/mm3 (150-450); RBC Distribution Width CV 19.1 % (11.6-14.6); RBC Distribution Width SD 57.5 fl (35.1-43.9); Red Blood Count 3.38 M/mm3 (4.6-6.2); White Blood Count 6.1 K/mm3 (4.4-11.0)
[2020-10-13 20:56] LABS: Bedside Glucose 208 mg/dL (70-110)
[2020-10-13] MEDS: Atorvastatin Calcium 80 MG Tablet PO (21:04)
[2020-10-14] VITALS (24 sets, daily range): BP systolic 78–117; BP diastolic 54–105; PULSE 74–92; RESP 16–24; TEMP 36.1–36.8; O2SAT 90–98
[2020-10-14] MEDS: Ondansetron 4 MG/2 ML Vial IV (01:15)
[2020-10-14] MEDS: MELATONIN 10 MG TABLET 5 MG PO (01:15)
[2020-10-14] MEDS: guaiFENesin Dm 10 ML UDC PO ×5 (02:10→21:21)
[2020-10-14] MEDS: Ipratropium/Albuterol Sulfate 3 ML AMPUL.NEB INHALATION ×6 (02:38→23:11)
--- NOTE | 2020-10-14 05:55 | RAD_ITS ---
STUDY: X-RAY CHEST REASON FOR EXAM: Male, 80 years old. chf TECHNIQUE: Single AP portable view of the chest. COMPARISON: Comparison is made with prior study dated 10/12/2020. FINDINGS: EKG electrodes are seen. Residual mild degree of CHF although there has been improvement. Residual bibasilar atelectasis. Blunting of the left costal phrenic angle. There is moderate cardiac enlargement. The patient is status post mitral valve replacement. A left-sided pacemaker device is seen. Normal mediastinum and roberth. Normal visualized pulmonary arteries. There is atherosclerotic calcification of the aortic arch with tortuosity. There are diffuse degenerative changes of the visualized thoracic spine. Normal visualized ribs, clavicles, and shoulders. There is no demonstrated abnormality of the visualized soft tissue structures of the upper abdomen. RAD/Chest 1 View (Portable) IMPRESSION: Mild residual CHF with bibasilar atelectasis although there has been improvement. Blunting of both costophrenic angles. Electronically Signed: Cyrus Saeed MD at 10:20 EDT , Service support ,
[2020-10-14] MEDS: Levothyroxine 50 MCG Tablet PO (06:34)
[2020-10-14 06:46] LABS: Absolute Lymphocyte Count 0.74 X10^3/uL (0.83-4.51); Absolute Neutrophil Count 4.4 X10^3/uL (2.0-7.7); Basophil# 0.01 X10^3/uL; Basophil% 0.2 % (0-1); Eosinophil# 0.03 X10^3/uL; Eosinophils% 0.5 % (0-5); Hematocrit 28.6 % (40-54); Hemoglobin 8.8 g/dL (13.0-16.5); Lymphocyte # 0.74 X10^3/ul (4.0); Lymphocyte % 12.6 % (19-41); Mean Corp Hgb Conc 30.8 g/dL (32-36); Mean Corpuscular Hgb 26.1 pg (27.0-32.0); Mean Corpuscular Volume 84.9 fL (80-94); Mean Platelet Vol. 9.9 fl (6.2-12.0); Monocyte# 0.65 X10^3/uL; NRBC Flagged by Analyzer 0 % (0-5); Neutrophil # 4.44 X10^3/uL (2.7-7.7); Neutrophil % 75.4 % (47-70); Platelet Count 151 K/mm3 (150-450); RBC Distribution Width CV 19.2 % (11.6-14.6); RBC Distribution Width SD 59.1 fl (35.1-43.9); Red Blood Count 3.37 M/mm3 (4.6-6.2); White Blood Count 5.9 K/mm3 (4.4-11.0)
[2020-10-14 06:55] LABS: International Normalized Ratio 1.7; Prothrombin Time (Protime)PT. 19.5 SECONDS (11.7-14.9)
[2020-10-14 07:31] LABS: ALB/GLOB Ratio 0.6 RATIO (0.9-2.4); AST(SGOT) 45 U/L (15-37); Alanine Aminotransfer ALT/SGPT 53 U/L (16-61); Albumin, Serum 2.1 g/dL (3.2-5.0); Alkaline Phosphatase 241 U/L (45-117); Anion Gap 8 (5-15); BUN 106 mg/dL (7-18); BUN/Creat Ratio 30.5 RATIO (10-20); Calcium,Total 8.2 mg/dL (8.5-10.1); Chloride 103 mmol/L (98-107); Creatinine, Serum 3.48 mg/dL (0.70-1.30); EST Glomerular Filtration Rate 18 mL/min (>60); Est Glom Filt Rate - Afr Amer 22 mL/min (>60); Estimated Creatinine Clearance 16.65 ml/min; Globulin 3.7 g/dL (2.2-4.2); Glucose 116 mg/dL (74-106); Potassium 4.6 mmol/L (3.5-5.1); Protein, Total 5.8 g/dL (6.4-8.2); Sodium Level 132 mmol/L (136-145)
[2020-10-14] MEDS: 0.9% Saline Lock 10 ML Syringe IV ×2 (09:01→10:40)
[2020-10-14] MEDS: Finasteride 5 MG Tablet PO (09:04)
[2020-10-14] MEDS: Tamsulosin HCl 0.4 MG Capsule 0.8 MG PO (09:04)
[2020-10-14] MEDS: Pantoprazole Sodium 20 MG Tablet PO ×2 (09:04→21:21)
[2020-10-14] MEDS: Amiodarone 200 MG Tablet PO (09:05)
[2020-10-14] MEDS: HEPARIN/D5w 25,000 UNITS 25,000 UNITS/250 ML IV.SOLN. 14 UNITS IV (09:11)
[2020-10-14 09:46] LABS: Partial Thromboplast Time 41.2 Seconds (24.1-36.2)
[2020-10-14] MEDS: Furosemide 40 MG/4 ML Vial IV (10:40)
[2020-10-14] MEDS: Insulin Lispro 100 UNIT/ML INSULN.PEN SC ×2 (12:18→21:21)
[2020-10-14 12:26] LABS: Bedside Glucose 194 mg/dL (70-110)
--- NOTE | 2020-10-14 13:22 | CON.PCM_ITS ---
Problem List (1) Weakness Status: Acute (2) Acute blood loss anemia Status: Acute (3) Chronic respiratory failure with hypoxia Status: Chronic (4) Systolic CHF Status: Acute Qualifiers: Heart failure chronicity: acute on chronic Qualified Code(s): I50.23 - Acute on chronic systolic (congestive) heart failure (5) Chronic a-fib Status: Chronic (6) Pulmonary hypertension Status: Chronic Comment: mild (7) Acute on chronic renal failure Status: Chronic (8) Hypotension Status: Acute (9) Dilated cardiomyopathy Status: Chronic Comment: EF 30 % (10) Obstructive sleep apnea Status: Chronic (11) Cerebrovascular disease Status: Chronic (12) Schizoaffective disorder Status: Chronic (13) Supratherapeutic INR Status: Acute (14) Anticoagulation goal of INR 2.5 to 3.5 Status: Acute (15) CAD (coronary artery disease) Status: Chronic (16) mechanical prosthetic aortic valve replacement Status: Chronic (17) Hyperlipidemia Status: Chronic (18) DM type 2 (diabetes mellitus, type 2) Status: Chronic (19) Chronic obstructive lung disease Status: Chronic History of Present Illness Date of Consult: 10/14/20 Reason for Consult: weakness Requesting physician: [] Primary care physician: Dr. Fredrick Conway MD - History of Present Illness The patient is a 80 year old M with PMH as below, presented to the ED 10/12/2020 with black tarry stools in the setting of a supratherapeutic INR of 12.9 and hemoglobin of 6.7. Patient has a history of an aortic valve replacement, goal INR 2.5-3.5. [facility] staff at [facility] reported significant bruising to back, buttocks, and all extremities. Apparently, his INR had not been checked since he was released his last admission. Recent admission to [facility] ital 09/01/2020 through 09/14/2020 for gross hematuria, at which time he was seen by Dr. Roblero and the e commerce specialist, Dr. Milligan. He also had hemoptysis during that admission, as well as about a month prior to that where he was transferred to [facility]. Chest x-ray 10/14 showed mild residual CHF with bibasilar atelectasis, some improvement. There is blunting of both costophrenic angles. Hemoccult stool is positive. Rapid Covid negative. INR 10/14 is 1.7. His liver function studies are elevated and trending upward with a total bilirubin of 1.20. Renal function when he left the hospital on 09/14 showed a creatinine level of 2.74, currently 3.48, which has been trending down from admission 2 days ago. Patient has been having intermittent respiratory distress, diaphoretic, hypotensive and tachypneic. Rhythm A. fib. Upon exam, patient sitting up in recliner, appears mildly short of breath with respirations at 28. He is maintaining appropriate saturations on 2L per nasal cannula. He remains hypotensive and fluid overloaded, has 3+ pitting edema with third spacing to the legs. Abdomen is distended and arms are with pitting edema as well. Heart rate is in the 90s. He is afebrile at 97.8 ?F. Lasix was being held secondary to hypotension, however it was given today and he seems to be tolerating it okay. Discussed with hospitalist, Dr. Frye, she reports she is going to start him on midodrine to see if that will improve his blood pressures allow for more aggressive diuresis. Currently on a heparin drip for anticoagulation. He received 3 units of packed red cells 10/12 to 10/13. Weight on admission 103 kg, currently 99.6 kg. Discussed palliative care services with patient and his friend, Feng. There is a POA documents in the patient's chart, however Feng denies being the healthcare power of maintenance of way foreman. I did review these documents with social work. Patient does have a disc pad plate filler, Mariama Bryan with [facility] [employer]. Feng is very attentive, assists w/ care. Patient Problems: Chronic Problems Chronic respiratory failure with hypoxia (Chronic) Chronic a-fib (Chronic) Pulmonary hypertension (Chronic) mild Coronary artery disease (Chronic) stent placement 04/12 Acute on chronic renal failure (Chronic) CKD (chronic kidney disease) stage 4, GFR 15-29 ml/min (Chronic) Dilated cardiomyopathy (Chronic) EF 30 % Obstructive sleep apnea (Chronic) Cerebrovascular disease (Chronic) Schizoaffective disorder (Chronic) Acute cerebrovascular accident (Chronic) CAD (coronary artery disease) (Chronic) mechanical prosthetic aortic valve replacement (Chronic) Hyperlipidemia (Chronic) DM type 2 (diabetes mellitus, type 2) (Chronic) Chronic obstructive lung disease (Chronic) Surgical History: cholecystectomy, - - Bladder resection and aortic valve replacement Psychiatric History: Bipolar Home Medications: Ambulatory Orders Medication Instructions Recorded Amiodarone HCl 200 mg PO DAILY 06/05/20 Atorvastatin Calcium [Lipitor] 80 mg PO QHS 06/05/20 Budesonide Aerosol [Pulmicort 0.5 mg INHALATION BID 06/05/20 Respules] Clopidogrel Bisulfate [Plavix] 75 mg PO DAILY 06/05/20 Levothyroxine [Synthroid] 50 mcg PO DAILY 06/05/20 Metoprolol(XL)Succ [Toprol Xl 50 mg PO DAILY 06/05/20 (Beta Damir)] Omeprazole 20 mg PO BID 06/05/20 Docusate Sodium 100 mg PO BID 08/22/20 Nitroglycerin SL (ED ONLY) 0.4 mg SUBLINGUAL PRN PRN 08/22/20 [Nitrostat] Senna [Senokot] 1 tab PO DAILY 08/22/20 Mag Hydrox/Aluminum Hyd/Simeth 30 ml PO Q4H PRN PRN 09/01/20 [Alum-Mag Hydroxide-Simeth Susp] Acetaminophen [Tylenol Tablet] 325 mg PO Q6H PRN PRN tab 09/14/20 Finasteride [Proscar] 5 mg PO DAILY tab 09/14/20 Insulin Glargine [Lantus SoloStar 22 units SC QHS pen 09/14/20 Pen] Ipratropium/Albuterol Sulfate 3 ml INHALATION Q4H.RT ampul.neb 09/14/20 [Duoneb] Tamsulosin HCl [Flomax] 0.8 mg PO DAILY@0830 cap 09/14/20 Benzonatate [Tessalon Perle] 100 mg PO TID PRN PRN 10/12/20 Furosemide [Lasix] 40 mg PO BID 10/12/20 Guaifenesin Dm [Robitussin Dm] 10 ml PO Q4H PRN 10/12/20 Insulin Lispro [Humalog] 0 unit SC ACHS 10/12/20 Melatonin 5 mg PO QHS PRN 10/12/20 Warfarin [Coumadin] 3 mg PO DAILY 10/12/20 Allergies ticagrelor [From Brilinta] Allergy (Verified 10/12/20 18:40) WEAKNESS Maternal History Items: Unknown - He does not know any biological history of either parent as he was raised in an orphanage - Social History Lives: [facility] Smoking Status: Former smoker Alcohol: None Drugs: None Review of Systems Constitutional: Reports: Weakness, Weight Change, Fatigue. Denies: Chills, Fever Eyes: Denies: Vision Change HEENT: Reports: Head Aches. Denies: Difficulty Swallowing, Nasal Congestion, Sinus Congestion, Sinus Drainage, Sore Throat Cardiovascular: Reports: Edema, Orthopnea. Denies: Chest Pain, Palpitations Respiratory: Reports: Shortness of Breath, Wheezing. Denies: Cough, Hemoptysis, Sputum production Gastrointestinal: Reports: Constipation. Denies: Abdominal Pain, Diarrhea, Nausea, Vomiting Genitourinary: Reports: Retention. Denies: Dysuria Musculoskeletal: Reports: Leg Pain. Denies: Joint Pain, Joint Tenderness Skin: Denies: Rash, Wounds Neurological: Reports: Balance problems. Denies: Focal weakness, Numbness, Tingling, Tremor, Seizures Psychiatric: Reports: Anxiety, Depression. Denies: Homicidal Ideations, Suicidal Ideations Hematologic/ Lymphatic: Reports: Anemia, Easy Bruising, Easy Bleeding, Hx of blood clot, Hx of blood transfusion Physical Exam Subjective: Sitting up in recliner with POA sitting. Short of breath with minimal conversation. His legs are dependent, assisted him with elevation in the recliner with pillows. Not really having any pain. He is on a monitor/stepdown, heart rate is elevated. General: Alert, Oriented x3, Cooperative HEENT: Atraumatic, Normocephalic Oral: Dry Mucosa Neck: Supple, Trachea Midline Lungs: Diminished, Rales Cardiovascular: Normal S1, Normal S2, Murmur, Tachycardic Abdomen: Bowel Sounds Present, Soft, Non Tender, Distended, Obese Extremities: No cyanosis, Edema Skin: No rashes Musculoskeletal: Arthritic Changes Neurological: Cranial nerves II-XII grossly intact Psych/Mental Status: Normal Affect, Appropriate Objective: Vital Signs Temp Pulse Resp BP Pulse Ox 97.8 F 88 16 91/59 L 94 10/14/20 08:00 10/14/20 11:00 10/14/20 10:55 10/14/20 10:00 10/14/20 10:00 Oxygen Flow Rate (L/min) 2 Oxygen Delivery Method Nasal Cannula Weight: 99.6 kg Body Mass Index (BMI) 33.0 Finger Stick Blood Glucose 188 Intake and Output for Last 24 Hours 10/12/20 10/13/20 10/14/20 23:59 23:59 23:59 Intake Total 1000 / 1120 1571 / 1571 Output Total 750 / 950 525 / 525 Balance 1000 / 770 821 / 621 -525 / -525 Microbiology Past 72 Hours 10/12/20 19:00 Stool Occult Blood (HESHAM) - Final Stool Occult Blood Positive Laboratory Tests Past 24 Hrs 10/12/20 10/12/20 10/13/20 19:02 19:02 18:07 WBC 6.1 RBC 3.38 L Hgb 8.8 L Hct 28.6 L MCV 84.6 MCH 26.0 L MCHC 30.8 L RDW Std Deviation 57.5 H RDW Coeff of Yessi 19.1 H Plt Count 142 L MPV 9.9 Immature Gran % (Auto) 0.200 Neut % (Auto) 74.5 H Lymph % (Auto) 13.4 L Spencer % (Auto) 11.4 H Eos % (Auto) 0.3 Baso % (Auto) 0.2 Absolute Neuts (auto) 4.5 Absolute Lymphs (auto) 0.81 L Nucleated RBC % 0 PT INR APTT Sodium Potassium Chloride Carbon Dioxide Anion Gap BUN Creatinine Estim Creat Clear Calc Est GFR (MDRD) Af Amer Est GFR (MDRD) Non-Af BUN/Creatinine Ratio Glucose Calcium Total Bilirubin AST ALT Alkaline Phosphatase Total Protein Albumin Globulin Albumin/Globulin Ratio Crossmatch See Detail See Detail 10/14/20 10/14/20 10/14/20 06:30 06:30 06:30 WBC 5.9 RBC 3.37 L Hgb 8.8 L Hct 28.6 L MCV 84.9 MCH 26.1 L MCHC 30.8 L RDW Std Deviation 59.1 H RDW Coeff of Yessi 19.2 H Plt Count 151 MPV 9.9 Immature Gran % (Auto) 0.300 Neut % (Auto) 75.4 H Lymph % (Auto) 12.6 L Spencer % (Auto) 11.0 H Eos % (Auto) 0.5 Baso % (Auto) 0.2 Absolute Neuts (auto) 4.4 Absolute Lymphs (auto) 0.74 L Nucleated RBC % 0 PT 19.5 H INR 1.7 APTT Sodium 132 L Potassium 4.6 Chloride 103 Carbon Dioxide 21.0 Anion Gap 8 BUN 106 H* Creatinine 3.48 H Estim Creat Clear Calc 16.65 Est GFR (MDRD) Af Amer 22 L Est GFR (MDRD) Non-Af 18 L BUN/Creatinine Ratio 30.5 H Glucose 116 H Calcium 8.2 L Total Bilirubin 1.20 H AST 45 H ALT 53 Alkaline Phosphatase 241 H Total Protein 5.8 L Albumin 2.1 L Globulin 3.7 Albumin/Globulin Ratio 0.6 L Crossmatch 10/14/20 06:30 WBC RBC Hgb Hct MCV MCH MCHC RDW Std Deviation RDW Coeff of Yessi Plt Count MPV Immature Gran % (Auto) Neut % (Auto) Lymph % (Auto) Spencer % (Auto) Eos % (Auto) Baso % (Auto) Absolute Neuts (auto) Absolute Lymphs (auto) Nucleated RBC % PT INR APTT 41.2 H Sodium Potassium Chloride Carbon Dioxide Anion Gap BUN Creatinine Estim Creat Clear Calc Est GFR (MDRD) Af Amer Est GFR (MDRD) Non-Af BUN/Creatinine Ratio Glucose Calcium Total Bilirubin AST ALT Alkaline Phosphatase Total Protein Albumin Globulin Albumin/Globulin Ratio Crossmatch Assessment/Plan All Active Problems Acute blood loss anemia (Acute) Systolic CHF (Acute) Symptomatic anemia (Acute) Congestive heart failure (Acute) Hypotension (Acute) Weakness (Acute) HUONG (acute kidney injury) (Acute) Hyperkalemia (Acute) GI bleed (Resolved) Supratherapeutic INR (Acute) Gross hematuria (Acute) Anticoagulation goal of INR 2.5 to 3.5 (Acute) Facial droop (Resolved) 80-year-old with multiple comorbidities, readmitted with supratherapeutic INR at 12.9 and acute blood loss anemia requiring 3 units of packed red cells. Seen today for initial palliative care consultation regarding his weakness and comorbidities. 1. Debility/weakness: Again, multifactorial. Continue with PT/OT. We will follow up as an outpatient 2. Shortness of breath/systolic CHF/chronic A. fib/anemia: Maintaining appropriate saturations on 2 L per nasal cannula. He would not be a candidate for oxycodone or Roxanol for his dyspnea, not severe enough and would treat the underlying cause prior to initiation of opioid. Difficulty with diuresis secondary to hypotension and renal function. He was told in the past he needs an ICD/defibrillator, deputy sheriff building guard is Dr. Serrano at [facility] but patient would like to switch to [facility]. Discussed with hospitalist. 3. Supratherapeutic INR: History of aortic valve replacement, has multiple ad mits for supratherapeutic INRs and bleeding issues. 4. Dilated cardiomyopathy with EF of 30%/EMERY/CAD/HLD/T2DM/COPD/CKD stage III: Complicates overall care, management, recovery, and prognosis. Defer management to hospitalist Thank you for the opportunity to participate in this patient's care, please do not hesitate to contact [facility] with any further questions or concerns. Palliative direct line is [phone]. We will have RN follow up approximately 3 days after discharge to home and will discuss palliative services further at that time. Greater than 50% of F2F dedicated to education and counseling with patient and his friend, Feng regarding hospice versus palliative care services, multiple comorbidities and severity of illness, prognosis, and plan of care moving forw sarah. He is agreeable to outpatient visit once he is dc'd to nursing facility, but does not want to return to [facility]. This note was generated with [facility] dictation software. It may contain incorrect words, spelling, and punctuation that were not noted in checking the note before signing.
--- NOTE | 2020-10-14 13:44 | PN_ITS ---
<Isauro Sherman - Last Filed: 10/14/20 15:23> Patient Problems: Active and Suspected Problems Acute blood loss anemia (Acute) Systolic CHF (Acute) Symptomatic anemia (Acute) Congestive heart failure (Acute) Hypotension (Acute) Weakness (Acute) Supratherapeutic INR (Acute) Anticoagulation goal of INR 2.5 to 3.5 (Acute) Subjective: Mr. Cameron is a 80-year-old male who upon my initial evaluation appeared in acute distress, alert and oriented x3. Patient appears in acute distress, is diaphoretic, hypotensive and tachypneic. Patient is having difficulty breathing related to his cardiopulmonary congestion. After receiving a dose of Lasix to reduce his congestion patient did receive improved however was still diaphoretic, hypotensive and short of breath. Objective: Clinical Impression(s) from Imaging Studies Chest X-Ray 10/12/20 19:28 IMPRESSION: Cardiomegaly with central pulmonary venous congestion and small left pleural effusion. Electronically Signed: Tahir Machado MD at 19:39 EDT Tel , Service support , Chest X-Ray 10/14/20 05:55 IMPRESSION: Mild residual CHF with bibasilar atelectasis although there has been improvement. Blunting of both costophrenic angles. Electronically Signed: Cyrus Saeed MD at 10:20 EDT , Service support , Vitals/I&O's: Vital Signs Temp Pulse Resp BP Pulse Ox 97.8 F 88 16 91/59 L 94 10/14/20 08:00 10/14/20 11:00 10/14/20 10:55 10/14/20 10:00 10/14/20 10:00 Oxygen Flow Rate (L/min) 2 Oxygen Delivery Method Nasal Cannula Weight: 219 lb 9.286 oz Body Mass Index (BMI) 33.0 Finger Stick Blood Glucose 188 Intake and Output for Last 24 Hours 10/12/20 10/13/20 10/14/20 23:59 23:59 23:59 Intake Total 1000 / 1120 1571 / 1571 Output Total 750 / 950 525 / 525 Balance 1000 / 770 821 / 621 -525 / -525 General: Alert, Oriented x3, - - In acute distress HEENT: Atraumatic, PERRLA, EOMI, Normocephalic Neck: Supple, No JVD, Negative Carotid Bruits Lungs: Diminished, Short of Breath, Tachypneic, Wheezes Cardiovascular: Regular rate, No murmurs Abdomen: Distended, - - Edema throughout the abdomen Extremities: Edema, - - Edematous throughout the upper and lower extremities Skin: No rashes, No breakdown Musculoskeletal: No Tenderness to Palpation of Joints or Extremities Neurological: - - Not able to assess due to patient distress Psych/Mental Status: Anxious Microbiology Past 72 Hours 10/12/20 19:00 Stool Stool Occult Blood (HESHAM) - Final Occult Blood Positive Laboratory Results 10/12/20 19:02: Crossmatch See Detail 10/12/20 19:02: Crossmatch See Detail 10/13/20 16:52: POC Glucose 155 H 10/13/20 18:07: WBC 6.1, RBC 3.38 L, Hgb 8.8 L, Hct 28.6 L, MCV 84.6, MCH 26.0 L , MCHC 30.8 L, RDW Std Deviation 57.5 H, RDW Coeff of Yessi 19.1 H, Plt Count 142 L, MPV 9.9, Immature Gran % (Auto) 0.200, Neut % (Auto) 74.5 H, Lymph % (Auto) 13.4 L, Louisa % (Auto) 11.4 H, Eos % (Auto) 0.3, Baso % (Auto) 0.2, Absolute Neuts (auto) 4.5, Absolute Lymphs (auto) 0.81 L, Nucleated RBC % 0 10/13/20 20:47: POC Glucose 208 H 10/14/20 06:30: Sodium 132 L, Potassium 4.6, Chloride 103, Carbon Dioxide 21.0, Anion Gap 8, BUN 106 H*, Creatinine 3.48 H, Estim Creat Clear Calc 16.65, Est GFR (MDRD) Af Amer 22 L, Est GFR (MDRD) Non-Af 18 L, BUN/Creatinine Ratio 30.5 H , Glucose 116 H, Calcium 8.2 L, Total Bilirubin 1.20 H, AST 45 H, ALT 53, Alkaline Phosphatase 241 H, Total Protein 5.8 L, Albumin 2.1 L, Globulin 3.7, Albumin/Globulin Ratio 0.6 L 10/14/20 06:30: PT 19.5 H, INR 1.7 10/14/20 06:30: WBC 5.9, RBC 3.37 L, Hgb 8.8 L, Hct 28.6 L, MCV 84.9, MCH 26.1 L , MCHC 30.8 L, RDW Std Deviation 59.1 H, RDW Coeff of Yessi 19.2 H, Plt Count 151, MPV 9.9, Immature Gran % (Auto) 0.300, Neut % (Auto) 75.4 H, Lymph % (Auto) 12.6 L, Louisa % (Auto) 11.0 H, Eos % (Auto) 0.5, Baso % (Auto) 0.2, Absolute Neuts (auto) 4.4, Absolute Lymphs (auto) 0.74 L, Nucleated RBC % 0 10/14/20 06:30: APTT 41.2 H 10/14/20 12:17: POC Glucose 194 H Current Medications Acetaminophen (Acetaminophen 325 Mg Tablet) 650 mg PO Q6H PRN PRN PRN Reason: Pain Score 1-10/Temp > 100.7 F Last Admin: 10/13/20 04:57 Dose: 650 mg Documented by: Albuterol Sulfate (Albuterol 2.5 Mg/3 Ml Vial.Neb.) 2.5 mg INHALATION Q2H PRN PRN PRN Reason: SOB/Wheezing Albuterol/Ipratropium (Ipratropium/Albuterol Sulfate 3 Ml Ampul.Neb) 3 ml INHALATION Q4H.RT [facility] Last Admin: 10/14/20 10:54 Dose: 3 ml Documented by: Amiodarone HCl (Amiodarone 200 Mg Tablet) 200 mg PO DAILYCM [facility] Last Admin: 10/14/20 09:05 Dose: 200 mg Documented by: Atorvastatin Calcium (Atorvastatin Calcium 80 Mg Tablet) 80 mg PO QHS [facility] Last Admin: 10/13/20 21:04 Dose: 80 mg Documented by: Docusate Sodium (Docusate Sodium 100 Mg Capsule) 100 mg PO BID [facility] Last Admin: 10/14/20 10:31 Dose: Not Given Documented by: Finasteride (Finasteride 5 Mg Tablet) 5 mg PO DAILY [facility] Last Admin: 10/14/20 09:04 Dose: 5 mg Documented by: Guaifenesin (Guaifenesin Dm 10 Ml Udc) 10 ml PO Q4 [facility] Last Admin: 10/14/20 09:05 Dose: 10 ml Documented by: Heparin Sodium (Porcine) (Heparin Injection (Vial) 5,000 Unit/Ml Vial) 0 unit IV UD PRN; Protocol PRN Reason: dose adjustment Sodium Chloride () 500 mls @ 15 mls/hr IV PRN PRN PRN Reason: Blood Transfusion Sodium Chloride () 250 mls @ 15 mls/hr IV .[id number] PRN PRN Reason: Saline Flush Heparin Sodium/Dextrose () 25,000 units in 250 mls @ 14 mls/hr IV .[id number] [facility]; Protocol Last Admin: 10/14/20 09:11 Dose: 1,400 units/hr, 14 mls/hr Documented by: Insulin Glargine (Insulin Glargine 100 Units/Ml Pen) 22 units SC QHS [facility] Last Admin: 10/13/20 21:05 Dose: 22 u Documented by: Insulin Human Lispro (Insulin Lispro 100 Unit/Ml Insuln.Pen) 0 unit SC [facility]; Protocol Last Admin: 10/14/20 12:18 Dose: 2 u Documented by: Levothyroxine Sodium (Levothyroxine 50 Mcg Tablet) 50 mcg PO DAILY@0600 [facility] Last Admin: 10/14/20 06:34 Dose: 50 mcg Documented by: Melatonin (Melatonin 10 Mg Tablet) 5 mg PO QHS PRN PRN Reason: SLEEP Last Admin: 10/14/20 01:15 Dose: 5 mg Documented by: Nutritional Formula (Lactose Free) (Glucerna Shake 120 Ml Liquid) 120 ml PO TIDCM [facility] Last Admin: 10/14/20 09:11 Dose: Not Given Documented by: Ondansetron HCl (Ondansetron 4 Mg/2 Ml Vial) 4 mg IV Q8H PRN PRN PRN Reason: NAUSEA/VOMITING Last Admin: 10/14/20 01:15 Dose: 4 mg Documented by: Pantoprazole Sodium (Pantoprazole Sodium 20 Mg Tablet) 20 mg PO BID [facility] Last Admin: 10/14/20 09:04 Dose: 20 mg Documented by: Senna (Senna Tablet) 1 tablet PO DAILY [facility] Last Admin: 10/14/20 10:31 Dose: Not Given Documented by: Sodium Chloride (0.9% Saline Lock 10 Ml Syringe) 10 - 40 ml IV UD PRN PRN Reason: SALINE FLUSH Last Admin: 10/14/20 10:40 Dose: 10 ml Documented by: Tamsulosin HCl (Tamsulosin Hcl 0.4 Mg Capsule) 0.8 mg PO DAILY@0830 [facility] Last Admin: 10/14/20 09:04 Dose: 0.8 mg Documented by: STROKE Vital Signs/Narrative: Vital Signs Pulse Resp BP Pulse Ox 10/14/20 11:00 88 10/14/20 10:55 92 16 10/14/20 10:00 87 18 91/59 L 94 Medical Necessity - Tobacco Use Smoking Status: Former smoker Assessment/Plan All Active Problems Acute blood loss anemia (Acute) Systolic CHF (Acute) Symptomatic anemia (Acute) Congestive heart failure (Acute) Hypotension (Acute) Weakness (Acute) Hyperkalemia (Acute) GI bleed (Resolved) Supratherapeutic INR (Acute) Gross hematuria (Acute) Anticoagulation goal of INR 2.5 to 3.5 (Acute) Facial droop (Resolved) Mr. Cameron is a 80 y/o male who was presented to the ED with a chief complaint of dark tarry stools. Patient was admitted for Acute blood loss anemia, Systolic CHF, Hypotension, Hyperkalemia, GI bleed, Supratherapeutic INR and gross hematuria. Upon my initial evaluation patient was in acute distress with tachypnea, diaphoresis, hypotension, anxiety and a rigid/distended abdomen. After 1 dose of Lasix patient did appear to improve slightly in regards to his t achypnea and diaphoresis. Patient still sounded fluid overloaded and congested. 1.Acute Blood Loss Anemia Assessment -Hemoglobin 8.8, stable - Platelets unremarkable - INR 1.7 - RBC 3.37, trending up - + Heme occult stool Plan - 2 units of Leuk-reduced RBC transfused - 4 PRBC ordered - Hold home Warfarin -Palliative care consult scheduled 2) Systolic Congestive Heart Failure Assessment - BNP 713.1 - Troponins not elevated - 1 dose of Lasix administered to decrease congestion - CXR; Mild residual CHF with bibasilar atelectasis although there has been improvement. Blunting of both costophrenic angles. -EF of 35% Plan - EDD Lasix on hold due to hypotension - Continue telemetry monitoring 3. Supratherapeutic INR Assessment - 1.7 as of 10/13/2020, stable Plan - Hold Plavix - Hold daily coumadin - Continue to monitor INR Patient seen by Isauro Galicia PA-C, under the supervision on Dr. Frye <Bharti Frye - Last Filed: 10/14/20 16:22> Subjective: I agree with the above and the following is representation my independent history and physical examination Patient states he overall feels better today. He seemingly has upper airway adventitious sounds that do clear with coughing. His cough is weak however. Upon reevaluation this afternoon he was sitting up in a chair and did appear that he was improved even compared to this morning. Vitals/I&O's: Vital Signs Temp Pulse Resp BP Pulse Ox 97.8 F 89 18 91/59 L 93 10/14/20 08:00 10/14/20 15:44 10/14/20 15:44 10/14/20 10:00 10/14/20 15:44 Oxygen Flow Rate (L/min) 1 Oxygen Delivery Method Nasal Cannula Weight: 99.6 kg Body Mass Index (BMI) 33.0 Finger Stick Blood Glucose 188 Intake and Output for Last 24 Hours 10/12/20 10/13/20 10/14/20 23:59 23:59 23:59 Intake Total 1000 / 1120 1571 / 1571 Output Total 750 / 950 525 / 525 Balance 1000 / 770 821 / 621 -525 / -525 General: Alert, Oriented x3, Cooperative, Well developed, Well nourished, - - In acute distress Patient was in no acute distress at the time of my evaluation HEENT: Atraumatic, PERRLA, EOMI, Normocephalic, EAC Clear Oral: Moist Mucosa, No Gingival or Mucosal Lesions/ Ulcerations, - - Edentulous Neck: Supple, Negative Carotid Bruits, Trachea Midline, Thyroid Normal Size and Texture, JVD, Bilateral Lungs: No rhonchi, No wheeze, Diminished - Diffusely, Rales - Few at bilateral bases, Short of Breath - Mild, Tachypneic - Mild, - - No accessory muscle use Cardiovascular: Regular rate, Regular Rhythm, Normal S1, Normal S2, Murmur, No rub noted, No Gallop Abdomen: Bowel Sounds Present, Soft, Non Tender, Non-Distended, Obese, - Extremities: No clubbing, No cyanosis, Capillary Refill Less than 3 Seconds, Edema, - - Edematous throughout the upper and lower extremities, marked anasarca Skin: No rashes, No breakdown, - - Scattered ecchymosis Musculoskeletal: No Tenderness to Palpation of Joints or Extremities, Arthritic Changes, Muscle Wasting Lymphatic: No Cervical, Supraclavicular, or Inguinal Adenopathy Neurological: - - Patient seems mildly confused and perseverates on the fact that he needs a defibrillator Microbiology Past 72 Hours 10/12/20 19:00 Stool Stool Occult Blood (HESHAM) - Final Occult Blood Positive Laboratory Results 10/12/20 19:02: Crossmatch See Detail 10/13/20 16:52: POC Glucose 155 H 10/13/20 18:07: WBC 6.1, RBC 3.38 L, Hgb 8.8 L, Hct 28.6 L, MCV 84.6, MCH 26.0 L , MCHC 30.8 L, RDW Std Deviation 57.5 H, RDW Coeff of Yessi 19.1 H, Plt Count 142 L, MPV 9.9, Immature Gran % (Auto) 0.200, Neut % (Auto) 74.5 H, Lymph % (Auto) 13.4 L, Louisa % (Auto) 11.4 H, Eos % (Auto) 0.3, Baso % (Auto) 0.2, Absolute Neuts (auto) 4.5, Absolute Lymphs (auto) 0.81 L, Nucleated RBC % 0 10/13/20 20:47: POC Glucose 208 H 10/14/20 06:30: Sodium 132 L, Potassium 4.6, Chloride 103, Carbon Dioxide 21.0, Anion Gap 8, BUN 106 H*, Creatinine 3.48 H, Estim Creat Clear Calc 16.65, Est GFR (MDRD) Af Amer 22 L, Est GFR (MDRD) Non-Af 18 L, BUN/Creatinine Ratio 30.5 H , Glucose 116 H, Calcium 8.2 L, Total Bilirubin 1.20 H, AST 45 H, ALT 53, Alkaline Phosphatase 241 H, Total Protein 5.8 L, Albumin 2.1 L, Globulin 3.7, Albumin/Globulin Ratio 0.6 L 10/14/20 06:30: PT 19.5 H, INR 1.7 10/14/20 06:30: WBC 5.9, RBC 3.37 L, Hgb 8.8 L, Hct 28.6 L, MCV 84.9, MCH 26.1 L , MCHC 30.8 L, RDW Std Deviation 59.1 H, RDW Coeff of Yessi 19.2 H, Plt Count 151, MPV 9.9, Immature Gran % (Auto) 0.300, Neut % (Auto) 75.4 H, Lymph % (Auto) 12.6 L, Louisa % (Auto) 11.0 H, Eos % (Auto) 0.5, Baso % (Auto) 0.2, Absolute Neuts (auto) 4.4, Absolute Lymphs (auto) 0.74 L, Nucleated RBC % 0 10/14/20 06:30: APTT 41.2 H 10/14/20 12:17: POC Glucose 194 H 10/14/20 15:03: APTT Pending Current Medications Acetaminophen (Acetaminophen 325 Mg Tablet) 650 mg PO Q6H PRN PRN PRN Reason: Pain Score 1-10/Temp > 100.7 F Last Admin: 10/13/20 04:57 Dose: 650 mg Documented by: Albuterol Sulfate (Albuterol 2.5 Mg/3 Ml Vial.Neb.) 2.5 mg INHALATION Q2H PRN PRN PRN Reason: SOB/Wheezing Albuterol/Ipratropium (Ipratropium/Albuterol Sulfate 3 Ml Ampul.Neb) 3 ml INHALATION Q4H.RT [facility] Last Admin: 10/14/20 15:43 Dose: 3 ml Documented by: Amiodarone HCl (Amiodarone 200 Mg Tablet) 200 mg PO DAILYCM [facility] Last Admin: 10/14/20 09:05 Dose: 200 mg Documented by: Atorvastatin Calcium (Atorvastatin Calcium 80 Mg Tablet) 80 mg PO QHS [facility] Last Admin: 10/13/20 21:04 Dose: 80 mg Documented by: Docusate Sodium (Docusate Sodium 100 Mg Capsule) 100 mg PO BID [facility] Last Admin: 10/14/20 10:31 Dose: Not Given Documented by: Finasteride (Finasteride 5 Mg Tablet) 5 mg PO DAILY [facility] Last Admin: 10/14/20 09:04 Dose: 5 mg Documented by: Guaifenesin (Guaifenesin Dm 10 Ml Udc) 10 ml PO Q4 [facility] Last Admin: 10/14/20 15:39 Dose: Not Given Documented by: Heparin Sodium (Porcine) (Heparin Injection (Vial) 5,000 Unit/Ml Vial) 0 unit IV UD PRN; Protocol PRN Reason: dose adjustment Sodium Chloride () 500 mls @ 15 mls/hr IV PRN PRN PRN Reason: Blood Transfusion Sodium Chloride () 250 mls @ 15 mls/hr IV .[id number] PRN PRN Reason: Saline Flush Heparin Sodium/Dextrose () 25,000 units in 250 mls @ 14 mls/hr IV .[id number] [facility]; Protocol Last Admin: 10/14/20 09:11 Dose: 1,400 units/hr, 14 mls/hr Documented by: Insulin Glargine (Insulin Glargine 100 Units/Ml Pen) 22 units SC QHS [facility] Last Admin: 10/13/20 21:05 Dose: 22 u Documented by: Insulin Human Lispro (Insulin Lispro 100 Unit/Ml Insuln.Pen) 0 unit SC ACHS [facility]; Protocol Last Admin: 10/14/20 12:18 Dose: 2 u Documented by: Levothyroxine Sodium (Levothyroxine 50 Mcg Tablet) 50 mcg PO DAILY@0600 [facility] Last Admin: 10/14/20 06:34 Dose: 50 mcg Documented by: Melatonin (Melatonin 10 Mg Tablet) 5 mg PO QHS PRN PRN Reason: SLEEP Last Admin: 10/14/20 01:15 Dose: 5 mg Documented by: Midodrine (Midodrine Hcl 5 Mg Tablet) 10 mg PO TIDCM [facility] Nutritional Formula (Lactose Free) (Glucerna Shake 120 Ml Liquid) 120 ml PO TIDCM [facility] Last Admin: 10/14/20 15:39 Dose: Not Given Documented by: Ondansetron HCl (Ondansetron 4 Mg/2 Ml Vial) 4 mg IV Q8H PRN PRN PRN Reason: NAUSEA/VOMITING Last Admin: 10/14/20 01:15 Dose: 4 mg Documented by: Pantoprazole Sodium (Pantoprazole Sodium 20 Mg Tablet) 20 mg PO BID [facility] Last Admin: 10/14/20 09:04 Dose: 20 mg Documented by: Senna (Senna Tablet) 1 tablet PO DAILY [facility] Last Admin: 10/14/20 10:31 Dose: Not Given Documented by: Sodium Chloride (0.9% Saline Lock 10 Ml Syringe) 10 - 40 ml IV UD PRN PRN Reason: SALINE FLUSH Last Admin: 10/14/20 10:40 Dose: 10 ml Documented by: Tamsulosin HCl (Tamsulosin Hcl 0.4 Mg Capsule) 0.8 mg PO DAILY@0830 [facility] Last Admin: 10/14/20 09:04 Dose: 0.8 mg Documented by: STROKE Vital Signs/Narrative: Vital Signs Pulse Resp Pulse Ox 10/14/20 15:44 89 18 93 Assessment/Plan ASSESSMENT Acute blood loss anemia Hypotension GI bleeding HUONG on CKD stage IIIb Hyperkalemia-resolved Mild hyperbilirubinemia Supratherapeutic INR-resolved Anasarca Chronic anticoagulation Permanent atrial fibrillation Mechanical aortic valve HFrEF (EF 30%) secondary to ischemic cardiomyopathy--> decompensated Hyperlipidemia COPD EMERY CAD DM-2 Hypothyroidism GERD Constipation BPH History of hematuria Schizoaffective disorder PLAN -Patient was transfused a total of 3 units of packed red blood cells on 10/13/2020 -Globin now remained stable at 8.8 -Repeat hemoglobin in a.m. -A.M. INR was 1.7 -Start heparin drip without bolus since patient does have a mechanical aortic valve -Start midodrine 10 mg 3 times daily help support blood pressure to enable more aggressive diuresis -Patient's blood pressures tend to run low even with last hospitalization -Blood pressure medications are on hold -Serum creatinine is improving some I suspect that he has a prerenal component combined with cardiorenal syndrome -Check urine lytes -Check retroperitoneal ultrasound -Nephrology consult -Palliative care consult in place -Suspect bilirubin elevation related to passive hepatic congestion -Wean supplemental oxygen as able -Currently on 1 L nasal cannula with oxygen saturation 93% -Repeat chest x-ray from this morning shows mild residual CHF with overall improvement Inpatient E&M: [id number] [facility] H[facility] L[facility]
--- NOTE | 2020-10-14 14:33 | CASEMGMT ---
Patient's friend Feng came to [facility]. He was not aware he was patient's Healthcare Power of [employer] (HCPOA). DARRON was able to print a copy of the documents. DARRON went to patient's room, introduced self and role at [facility]. SW let them know that patient does have Health care Power of [place] and gave Feng a copy. Feng was fine with being patient's Healthcare POA, he just didn't know the documents were done. SW asked patient if he is okay with Feng being his HCPOA. At first patient said no he doesn't need a HCPOA. SW explained HCPOA and the purpose. SW told him the documents are to be done before they are actually needed. He then agreed he is okay with Feng being his Healthcare POA. Naomi RAMIREZ
--- NOTE | 2020-10-14 15:12 | CASEMGMT ---
DARRON received a call from Mariama Bryan with [facility]. DARRON told her about patient's admission. She told SW patient was supposed to be discharged from [facility] either yesterday or today per his request. His services he has at home are: aides 6 days a week for 3 hours on and 2 hours the other days. He received 10 meals every other week and he had a medical alert button. DARRON told her he told his nurse he is not returning to [facility] at discharge. DARRON will continue to follow and assist with d/c planning. Naomi Bernard MSW ASHLEY
[2020-10-14] MEDS: Midodrine HCl 5 MG Tablet 10 MG PO (17:40)
[2020-10-14 17:41] LABS: Bedside Glucose 110 mg/dL (70-110)
[2020-10-14] MEDS: Glucerna Shake 120 ML LIQUID PO (17:41)
[2020-10-14] MEDS: Atorvastatin Calcium 80 MG Tablet PO (21:21)
[2020-10-14 21:40] LABS: Bedside Glucose 170 mg/dL (70-110)
[2020-10-15] VITALS (15 sets, daily range): BP systolic 91–103; BP diastolic 53–66; PULSE 81–94; RESP 16–24; TEMP 36.3–36.6; O2SAT 92–97
[2020-10-15 02:06] LABS: BNP,B-Type NATRIURETIC PEPTIDE 798.6 pg/mL (0-100)
[2020-10-15 02:11] LABS: Partial Thromboplast Time 182.6 Seconds (24.1-36.2)
[2020-10-15] MEDS: Furosemide 40 MG/4 ML Vial IV ×2 (02:28→08:57)
[2020-10-15] MEDS: 0.9% Saline Lock 10 ML Syringe IV ×2 (02:29→08:57)
[2020-10-15] MEDS: guaiFENesin Dm 10 ML UDC PO ×3 (02:34→08:53)
[2020-10-15] MEDS: Ipratropium/Albuterol Sulfate 3 ML AMPUL.NEB INHALATION ×6 (03:14→22:47)
[2020-10-15] MEDS: Levothyroxine 50 MCG Tablet PO (05:02)
[2020-10-15 06:36] LABS: Absolute Lymphocyte Count 0.66 X10^3/uL (0.83-4.51); Absolute Neutrophil Count 3.9 X10^3/uL (2.0-7.7); Basophil# 0.01 X10^3/uL; Basophil% 0.2 % (0-1); Eosinophil# 0.04 X10^3/uL; Eosinophils% 0.8 % (0-5); Hemoglobin 8.3 g/dL (13.0-16.5); Lymphocyte # 0.66 X10^3/ul (4.0); Lymphocyte % 12.5 % (19-41); Mean Corp Hgb Conc 29.6 g/dL (32-36); Mean Corpuscular Hgb 25.5 pg (27.0-32.0); Mean Corpuscular Volume 86.2 fL (80-94); Mean Platelet Vol. 9.9 fl (6.2-12.0); Monocyte# 0.62 X10^3/uL; Monocyte% 11.8 % (0-10); NRBC Flagged by Analyzer 0 % (0-5); Neutrophil # 3.93 X10^3/uL (2.7-7.7); Neutrophil % 74.5 % (47-70); Platelet Count 148 K/mm3 (150-450); RBC Distribution Width CV 19.5 % (11.6-14.6); RBC Distribution Width SD 60.5 fl (35.1-43.9); Red Blood Count 3.25 M/mm3 (4.6-6.2); White Blood Count 5.3 K/mm3 (4.4-11.0)
[2020-10-15 06:46] LABS: Bedside Glucose 129 mg/dL (70-110)
[2020-10-15 06:48] LABS: International Normalized Ratio 1.8; Prothrombin Time (Protime)PT. 19.8 SECONDS (11.7-14.9)
[2020-10-15 06:57] LABS: ALB/GLOB Ratio 0.5 RATIO (0.9-2.4); AST(SGOT) 42 U/L (15-37); Alanine Aminotransfer ALT/SGPT 49 U/L (16-61); Albumin, Serum 2.1 g/dL (3.2-5.0); Alkaline Phosphatase 241 U/L (45-117); Anion Gap 9 (5-15); BUN 99 mg/dL (7-18); BUN/Creat Ratio 30.7 RATIO (10-20); Calcium,Total 8.2 mg/dL (8.5-10.1); Chloride 92 mmol/L (98-107); Creatinine, Serum 3.23 mg/dL (0.70-1.30); EST Glomerular Filtration Rate 20 mL/min (>60); Est Glom Filt Rate - Afr Amer 24 mL/min (>60); Estimated Creatinine Clearance 17.94 ml/min; Globulin 3.9 g/dL (2.2-4.2); Glucose 119 mg/dL (74-106); Potassium 4.2 mmol/L (3.5-5.1); Sodium Level 124 mmol/L (136-145)
--- NOTE | 2020-10-15 07:27 | US_ITS ---
STUDY: RENAL ULTRASOUND - COMPLETE REASON FOR EXAM: Male, 80 years old. leonardo on ckd TECHNIQUE: Ultrasound evaluation of the kidneys was performed with real-time and static lira-scale imaging. COMPARISON: None. FINDINGS: RIGHT KIDNEY: Normal location of the right kidney, which is normal in size. The right kidney measures 10.7 cm x 4.7 cm x 4.8 cm. There is a normal cortex of the right kidney. The renal cortex measures 1.5 cm. There is no right renal mass or cyst. There are no right renal calculi. There is no right hydronephrosis. DISTAL RIGHT URETER: There is non-visualization of the distal right ureter. There is no demonstrated right ureterovesical junction calculus. There is no demonstrated right ureteral jet. LEFT KIDNEY: Normal location of the left kidney, which is normal in size. The left kidney measures 10.6 cm x 4.4 cm x 5 cm. There is a normal cortex of the left kidney. The renal cortex measures 1.4 cm. There is no left renal mass or cyst. There are no left renal calculi. There is no left hydronephrosis. DISTAL LEFT URETER: There is non-visualization of the distal left ureter. There is no demonstrated left ureterovesical junction calculus. There is no demonstrated left ureteral jet. BLADDER: A AVITIA catheter is seen within the bladder. The bladder is empty. US/Kidney and Bladder IMPRESSION: Normal ultrasound of the kidneys. Electronically Signed: Cyrus Saeed MD at 15:40 EDT , Service support ,
[2020-10-15] MEDS: Docusate Sodium 100 MG Capsule PO ×2 (08:50→21:01)
[2020-10-15] MEDS: Tamsulosin HCl 0.4 MG Capsule 0.8 MG PO (08:50)
[2020-10-15] MEDS: Amiodarone 200 MG Tablet PO (08:50)
[2020-10-15] MEDS: Pantoprazole Sodium 20 MG Tablet PO ×2 (08:51→21:01)
[2020-10-15] MEDS: Midodrine HCl 5 MG Tablet 10 MG PO ×3 (08:51→17:22)
[2020-10-15] MEDS: Finasteride 5 MG Tablet PO (08:52)
[2020-10-15] MEDS: Senna Tablet 1 TABLET PO (08:53)
[2020-10-15] MEDS: Glucerna Shake 120 ML LIQUID PO ×3 (08:57→17:23)
[2020-10-15] MEDS: HEPARIN/D5w 25,000 UNITS 25,000 UNITS/250 ML IV.SOLN. 8 UNITS IV (09:59)
[2020-10-15 10:47] LABS: Partial Thromboplast Time 97.2 Seconds (24.1-36.2)
[2020-10-15] MEDS: Insulin Lispro 100 UNIT/ML INSULN.PEN SC ×3 (11:54→21:00)
--- NOTE | 2020-10-15 12:06 | PCM.CONS.R ---
Problem List (1) HUONG (acute kidney injury) Status: Acute (2) CKD (chronic kidney disease) stage 4, GFR 15-29 ml/min Status: Chronic Consultation - Renal 10/15/20 PCP/ Referring MD: Requesting physician: [] Primary care physician: Dr. Fredrick Conway MD Reason for Consultation:: HUONG - History of Present Illness History of Present Illness: The patient is a 80 year old M Who was admitted to the hospital after [facility] was [facility] the [facility]. Nephrology consulted for acute renal failure. Somewhat poor historian. He was found to have significantly elevated INR on admission, extensive bruising. INR was corrected since admission. Patient has known history of congestive heart failure with low ejection fraction of 30%. Apparently he was quite swollen even before he came in. Severe anemia in the setting off bleeding. He did receive some blood transfusion. Blood pressure was quite low. He was started on Midodrine. Currently denies any complaints. Breathing looks acceptable. - Allergies Allergies: Allergies ticagrelor [From Brilinta] Allergy (Verified 10/12/20 18:40) WEAKNESS - Current Medications Current Medications: Current Medications Acetaminophen (Acetaminophen 325 Mg Tablet) 650 mg PO Q6H PRN PRN PRN Reason: Pain Score 1-10/Temp > 100.7 F Last Admin: 10/13/20 04:57 Dose: 650 mg Documented by: Albuterol Sulfate (Albuterol 2.5 Mg/3 Ml Vial.Neb.) 2.5 mg INHALATION Q2H PRN PRN PRN Reason: SOB/Wheezing Albuterol/Ipratropium (Ipratropium/Albuterol Sulfate 3 Ml Ampul.Neb) 3 ml INHALATION Q4H.RT [facility] Last Admin: 10/15/20 10:58 Dose: 3 ml Documented by: Amiodarone HCl (Amiodarone 200 Mg Tablet) 200 mg PO DAILYCM [facility] Last Admin: 10/15/20 08:50 Dose: 200 mg Documented by: Atorvastatin Calcium (Atorvastatin Calcium 80 Mg Tablet) 80 mg PO QHS [facility] Last Admin: 10/14/20 21:21 Dose: 80 mg Documented by: Docusate Sodium (Docusate Sodium 100 Mg Capsule) 100 mg PO BID [facility] Last Admin: 10/15/20 08:50 Dose: 100 mg Documented by: Finasteride (Finasteride 5 Mg Tablet) 5 mg PO DAILY [facility] Last Admin: 10/15/20 08:52 Dose: 5 mg Documented by: Furosemide (Furosemide 40 Mg/4 Ml Vial) 40 mg IV BID@1000,1800 [facility] Last Admin: 10/15/20 08:57 Dose: 40 mg Documented by: Guaifenesin (Guaifenesin Dm 10 Ml Udc) 10 ml PO Q4 [facility] Last Admin: 10/15/20 08:53 Dose: 10 ml Documented by: Heparin Sodium (Porcine) (Heparin Injection (Vial) 5,000 Unit/Ml Vial) 0 unit IV UD PRN; Protocol PRN Reason: dose adjustment Sodium Chloride () 500 mls @ 15 mls/hr IV PRN PRN PRN Reason: Blood Transfusion Sodium Chloride () 250 mls @ 15 mls/hr IV .[id number] PRN PRN Reason: Saline Flush Heparin Sodium/Dextrose () 25,000 units in 250 mls @ 14 mls/hr IV .[id number] [facility]; Protocol Last Titration: 10/15/20 12:04 Dose: 600 units/hr, 6 mls/hr Documented by: Insulin Glargine (Insulin Glargine 100 Units/Ml Pen) 22 units SC QHS [facility] Last Admin: 10/14/20 21:21 Dose: 22 u Documented by: Insulin Human Lispro (Insulin Lispro 100 Unit/Ml Insuln.Pen) 0 unit SC ACHS [facility]; Protocol Last Admin: 10/15/20 11:54 Dose: 1 u Documented by: Levothyroxine Sodium (Levothyroxine 50 Mcg Tablet) 50 mcg PO DAILY@0600 [facility] Last Admin: 10/15/20 05:02 Dose: 50 mcg Documented by: Melatonin (Melatonin 10 Mg Tablet) 5 mg PO QHS PRN PRN Reason: SLEEP Last Admin: 10/14/20 01:15 Dose: 5 mg Documented by: Midodrine (Midodrine Hcl 5 Mg Tablet) 10 mg PO TIDCM [facility] Last Admin: 10/15/20 11:53 Dose: 10 mg Documented by: Nutritional Formula (Lactose Free) (Glucerna Shake 120 Ml Liquid) 120 ml PO TIDCM [facility] Last Admin: 10/15/20 11:54 Dose: 120 ml Documented by: Ondansetron HCl (Ondansetron 4 Mg/2 Ml Vial) 4 mg IV Q8H PRN PRN PRN Reason: NAUSEA/VOMITING Last Admin: 10/14/20 01:15 Dose: 4 mg Documented by: Pantoprazole Sodium (Pantoprazole Sodium 20 Mg Tablet) 20 mg PO BID [facility] Last Admin: 10/15/20 08:51 Dose: 20 mg Documented by: Senna (Senna Tablet) 1 tablet PO DAILY [facility] Last Admin: 10/15/20 08:53 Dose: 1 tablet Documented by: Sodium Chloride (0.9% Saline Lock 10 Ml Syringe) 10 - 40 ml IV UD PRN PRN Reason: SALINE FLUSH Last Admin: 10/15/20 08:57 Dose: 20 ml Documented by: Tamsulosin HCl (Tamsulosin Hcl 0.4 Mg Capsule) 0.8 mg PO DAILY@0830 [facility] Last Admin: 10/15/20 08:50 Dose: 0.8 mg Documented by: - Past Medical History Past Medical History (Chronic Problems): Chronic Problems Chronic respiratory failure with hypoxia (Chronic) Chronic a-fib (Chronic) Pulmonary hypertension (Chronic) mild Coronary artery disease (Chronic) stent placement 04/12 Acute on chronic renal failure (Chronic) CKD (chronic kidney disease) stage 4, GFR 15-29 ml/min (Chronic) Dilated cardiomyopathy (Chronic) EF 30 % Obstructive sleep apnea (Chronic) Cerebrovascular disease (Chronic) Schizoaffective disorder (Chronic) Acute cerebrovascular accident (Chronic) CAD (coronary artery disease) (Chronic) mechanical prosthetic aortic valve replacement (Chronic) Hyperlipidemia (Chronic) DM type 2 (diabetes mellitus, type 2) (Chronic) Chronic obstructive lung disease (Chronic) - Past Surgical History Surgical History: cholecystectomy, - - Bladder resection and aortic valve replacement - Social History Smoking Status: Former smoker Alcohol: None Drugs: None - Family History Maternal History Items: Unknown - He does not know any biological history of either parent as he was raised in an orphanage Review of Systems Constitutional: Reports: Anorexia Respiratory: Reports: Shortness of Breath Hematologic/ Lymphatic: Reports: Easy Bruising, Easy Bleeding Patient Problems: Active and Suspected Problems Acute blood loss anemia (Acute) Systolic CHF (Acute) Symptomatic anemia (Acute) Congestive heart failure (Acute) Hypotension (Acute) Weakness (Acute) Supratherapeutic INR (Acute) Anticoagulation goal of INR 2.5 to 3.5 (Acute) - Physical Exam Vitals/I&O's: Vital Signs Temp Pulse Resp BP Pulse Ox 97.9 F 92 17 103/53 L 94 10/15/20 11:48 10/15/20 11:48 10/15/20 11:48 10/15/20 11:48 10/15/20 11:48 Oxygen Flow Rate (L/min) 1 Oxygen Delivery Method Nasal Cannula Weight: 99.7 kg Body Mass Index (BMI) 33.0 Finger Stick Blood Glucose 188 Intake and Output for Last 24 Hours 10/13/20 10/14/20 10/15/20 23:59 23:59 23:59 Intake Total 1571 / 1571 867.33 / 987.33 760.05 / 760.05 Output Total 750 / 950 875 / 1125 1150 / 1150 Balance 821 / 621 -7.67 / -137.67 -389.95 / -389.95 General: Alert, No apparent distress HEENT: Atraumatic Oral: Moist Mucosa Lungs: Clear to auscultation Cardiovascular: Normal S1, Normal S2 Abdomen: Bowel Sounds Present Extremities: Edema Skin: No rashes Lymphatic: No Cervical, Supraclavicular, or Inguinal Adenopathy Neurological: Cranial nerves II-XII grossly intact Psych/Mental Status: Appropriate Microbiology Past 72 Hours 10/12/20 19:00 Stool Stool Occult Blood (HESHAM) - Final Occult Blood Positive Laboratory Results 10/14/20 12:17: POC Glucose 194 H 10/14/20 15:03: APTT 204.0 H* 10/14/20 17:35: POC Glucose 110 10/14/20 21:18: POC Glucose 170 H 10/15/20 01:40: APTT 182.6 H* 10/15/20 01:40: B-Natriuretic Peptide 798.6 H 10/15/20 02:30: Urine Creatinine 95.40 10/15/20 06:00: PT 19.8 H, INR 1.8 10/15/20 06:00: WBC 5.3, RBC 3.25 L, Hgb 8.3 L, Hct 28.0 L, MCV 86.2, MCH 25.5 L, MCHC 29.6 L, RDW Std Deviation 60.5 H, RDW Coeff of Yessi 19.5 H, Plt Count 148 L, MPV 9.9, Immature Gran % (Auto) 0.200, Neut % (Auto) 74.5 H, Lymph % (Auto) 12.5 L, Barton % (Auto) 11.8 H, Eos % (Auto) 0.8, Baso % (Auto) 0.2, Absolute Neuts (auto) 3.9, Absolute Lymphs (auto) 0.66 L, Nucleated RBC % 0 10/15/20 06:00: Sodium 124 L, Potassium 4.2, Chloride 92 L, Carbon Dioxide 23.0, Anion Gap 9, BUN 99 H, Creatinine 3.23 H, Estim Creat Clear Calc 17.94, Est GFR (MDRD) Af Amer 24 L, Est GFR (MDRD) Non-Af 20 L, BUN/Creatinine Ratio 30.7 H, Glucose 119 H, Calcium 8.2 L, Total Bilirubin 1.00, AST 42 H, ALT 49, Alkaline Phosphatase 241 H, Total Protein 6.0 L, Albumin 2.1 L, Globulin 3.9, Albumin/Globulin Ratio 0.5 L 10/15/20 06:42: POC Glucose 129 H 10/15/20 10:08: APTT 97.2 H* Current Medications Acetaminophen (Acetaminophen 325 Mg Tablet) 650 mg PO Q6H PRN PRN PRN Reason: Pain Score 1-10/Temp > 100.7 F Last Admin: 10/13/20 04:57 Dose: 650 mg Documented by: Albuterol Sulfate (Albuterol 2.5 Mg/3 Ml Vial.Neb.) 2.5 mg INHALATION Q2H PRN PRN PRN Reason: SOB/Wheezing Albuterol/Ipratropium (Ipratropium/Albuterol Sulfate 3 Ml Ampul.Neb) 3 ml INHALATION Q4H.RT [facility] Last Admin: 10/15/20 10:58 Dose: 3 ml Documented by: Amiodarone HCl (Amiodarone 200 Mg Tablet) 200 mg PO DAILYCM [facility] Last Admin: 10/15/20 08:50 Dose: 200 mg Documented by: Atorvastatin Calcium (Atorvastatin Calcium 80 Mg Tablet) 80 mg PO QHS [facility] Last Admin: 10/14/20 21:21 Dose: 80 mg Documented by: Docusate Sodium (Docusate Sodium 100 Mg Capsule) 100 mg PO BID [facility] Last Admin: 10/15/20 08:50 Dose: 100 mg Documented by: Finasteride (Finasteride 5 Mg Tablet) 5 mg PO DAILY [facility] Last Admin: 10/15/20 08:52 Dose: 5 mg Documented by: Furosemide (Furosemide 40 Mg/4 Ml Vial) 40 mg IV BID@1000,1800 [facility] Last Admin: 10/15/20 08:57 Dose: 40 mg Documented by: Guaifenesin (Guaifenesin Dm 10 Ml Udc) 10 ml PO Q4 [facility] Last Admin: 10/15/20 08:53 Dose: 10 ml Documented by: Heparin Sodium (Porcine) (Heparin Injection (Vial) 5,000 Unit/Ml Vial) 0 unit IV UD PRN; Protocol PRN Reason: dose adjustment Sodium Chloride () 500 mls @ 15 mls/hr IV PRN PRN PRN Reason: Blood Transfusion Sodium Chloride () 250 mls @ 15 mls/hr IV .[id number] PRN PRN Reason: Saline Flush Heparin Sodium/Dextrose () 25,000 units in 250 mls @ 14 mls/hr IV .[id number] [facility]; Protocol Last Titration: 10/15/20 12:04 Dose: 600 units/hr, 6 mls/hr Documented by: Insulin Glargine (Insulin Glargine 100 Units/Ml Pen) 22 units SC QHS [facility] Last Admin: 10/14/20 21:21 Dose: 22 u Documented by: Insulin Human Lispro (Insulin Lispro 100 Unit/Ml Insuln.Pen) 0 unit SC ACHS [facility]; Protocol Last Admin: 10/15/20 11:54 Dose: 1 u Documented by: Levothyroxine Sodium (Levothyroxine 50 Mcg Tablet) 50 mcg PO DAILY@0600 [facility] Last Admin: 10/15/20 05:02 Dose: 50 mcg Documented by: Melatonin (Melatonin 10 Mg Tablet) 5 mg PO QHS PRN PRN Reason: SLEEP Last Admin: 10/14/20 01:15 Dose: 5 mg Documented by: Midodrine (Midodrine Hcl 5 Mg Tablet) 10 mg PO TIDCM [facility] Last Admin: 10/15/20 11:53 Dose: 10 mg Documented by: Nutritional Formula (Lactose Free) (Glucerna Shake 120 Ml Liquid) 120 ml PO TIDCM [facility] Last Admin: 10/15/20 11:54 Dose: 120 ml Documented by: Ondansetron HCl (Ondansetron 4 Mg/2 Ml Vial) 4 mg IV Q8H PRN PRN PRN Reason: NAUSEA/VOMITING Last Admin: 10/14/20 01:15 Dose: 4 mg Documented by: Pantoprazole Sodium (Pantoprazole Sodium 20 Mg Tablet) 20 mg PO BID [facility] Last Admin: 10/15/20 08:51 Dose: 20 mg Documented by: Senna (Senna Tablet) 1 tablet PO DAILY [facility] Last Admin: 10/15/20 08:53 Dose: 1 tablet Documented by: Sodium Chloride (0.9% Saline Lock 10 Ml Syringe) 10 - 40 ml IV UD PRN PRN Reason: SALINE FLUSH Last Admin: 10/15/20 08:57 Dose: 20 ml Documented by: Tamsulosin HCl (Tamsulosin Hcl 0.4 Mg Capsule) 0.8 mg PO DAILY@0830 [facility] Last Admin: 10/15/20 08:50 Dose: 0.8 mg Documented by: Assessment/Plan All Active Problems Acute blood loss anemia (Acute) Systolic CHF (Acute) Symptomatic anemia (Acute) Congestive heart failure (Acute) Hypotension (Acute) Weakness (Acute) HUONG (acute kidney injury) (Acute) Hyperkalemia (Acute) GI bleed (Resolved) Supratherapeutic INR (Acute) Gross hematuria (Acute) Anticoagulation goal of INR 2.5 to 3.5 (Acute) Facial droop (Resolved) acute renal failure CKD stage IV reviewed old records. Over the last 6 months, creatinine has ranged between2-2.6. He has known history of congestive heart failure with low ejection fraction at 30%. Currently has a Byers catheter. Previous abdominal imaging from last admission did not show any hydronephrosis. Chances of obstruction or low. Came in with severe anemia, decompensated heart failure. Acute renal failure is likely cardiorenal syndrome. He has significant volume overload. Blood pressure has been on the lower side, he was started on Midodrine. Blood pressure is better today. Chest imaging shows signs of fluid overload. Plan Try Lasix bolus 40 mg IV twice a day today. If any hypertension, will use Lasix drip. BUN and creatinine are somewhat better today Anemia. Due to extensive bruising in the setting of coagulopathy. Blood transfusion as per primary service Discussed with Dr. Frye
[2020-10-15 12:10] LABS: Bedside Glucose 167 mg/dL (70-110)
--- NOTE | 2020-10-15 12:10 | PCM.PROGNOTE ---
<RichardCheryl TUMBLING BARREL PAINTER - Last Filed: 10/15/20 12:29> Patient Problems: Active and Suspected Problems Acute blood loss anemia (Acute) Systolic CHF (Acute) Symptomatic anemia (Acute) Congestive heart failure (Acute) Hypotension (Acute) Weakness (Acute) HUONG (acute kidney injury) (Acute) Supratherapeutic INR (Acute) Anticoagulation goal of INR 2.5 to 3.5 (Acute) Subjective: Patient seen and examined. Continues to report significant generalized swelling and shortness of breath. Reports intermittent productive cough. Denies fever, chills. - Physical Exam Vitals/I&O's: Vital Signs Temp Pulse Resp BP Pulse Ox 97.9 F 92 17 103/53 L 94 10/15/20 11:48 10/15/20 11:48 10/15/20 11:48 10/15/20 11:48 10/15/20 11:48 Oxygen Flow Rate (L/min) 1 Oxygen Delivery Method Nasal Cannula Weight: 219 lb 12.814 oz Body Mass Index (BMI) 33.0 Finger Stick Blood Glucose 188 Intake and Output for Last 24 Hours 10/13/20 10/14/20 10/15/20 23:59 23:59 23:59 Intake Total 1571 / 1571 867.33 / 987.33 760.05 / 760.05 Output Total 750 / 950 875 / 1125 1150 / 1150 Balance 821 / 621 -7.67 / -137.67 -389.95 / -389.95 General: Alert, Oriented x3, Cooperative HEENT: Atraumatic, PERRLA, EOMI, Normocephalic Neck: Supple, No JVD, Negative Carotid Bruits Lungs: Diminished, - - Coarse breath sounds throughout Cardiovascular: Regular rate, No murmurs Abdomen: Bowel Sounds Present, Soft, Non Tender, Non-Distended Extremities: No clubbing, No cyanosis, Capillary Refill Less than 3 Seconds, - - Generalized swelling, +3 bilateral lower extremity edema. Skin: No rashes, No breakdown Musculoskeletal: No Tenderness to Palpation of Joints or Extremities Neurological: Cranial nerves II-XII grossly intact, Neuro grossly intact Psych/Mental Status: Normal Affect, Appropriate Microbiology Past 72 Hours 10/12/20 19:00 Stool Stool Occult Blood (HESHAM) - Final Occult Blood Positive Laboratory Results 10/14/20 12:17: POC Glucose 194 H 10/14/20 15:03: APTT 204.0 H* 10/14/20 17:35: POC Glucose 110 10/14/20 21:18: POC Glucose 170 H 10/15/20 01:40: APTT 182.6 H* 10/15/20 01:40: B-Natriuretic Peptide 798.6 H 10/15/20 02:30: Urine Creatinine 95.40 10/15/20 06:00: PT 19.8 H, INR 1.8 10/15/20 06:00: WBC 5.3, RBC 3.25 L, Hgb 8.3 L, Hct 28.0 L, MCV 86.2, MCH 25.5 L, MCHC 29.6 L, RDW Std Deviation 60.5 H, RDW Coeff of Yessi 19.5 H, Plt Count 148 L, MPV 9.9, Immature Gran % (Auto) 0.200, Neut % (Auto) 74.5 H, Lymph % (Auto) 12.5 L, Routt % (Auto) 11.8 H, Eos % (Auto) 0.8, Baso % (Auto) 0.2, Absolute Neuts (auto) 3.9, Absolute Lymphs (auto) 0.66 L, Nucleated RBC % 0 10/15/20 06:00: Sodium 124 L, Potassium 4.2, Chloride 92 L, Carbon Dioxide 23.0, Anion Gap 9, BUN 99 H, Creatinine 3.23 H, Estim Creat Clear Calc 17.94, Est GFR (MDRD) Af Amer 24 L, Est GFR (MDRD) Non-Af 20 L, BUN/Creatinine Ratio 30.7 H, Glucose 119 H, Calcium 8.2 L, Total Bilirubin 1.00, AST 42 H, ALT 49, Alkaline Phosphatase 241 H, Total Protein 6.0 L, Albumin 2.1 L, Globulin 3.9, Albumin/Globulin Ratio 0.5 L 10/15/20 06:42: POC Glucose 129 H 10/15/20 10:08: APTT 97.2 H* Current Medications Acetaminophen (Acetaminophen 325 Mg Tablet) 650 mg PO Q6H PRN PRN PRN Reason: Pain Score 1-10/Temp > 100.7 F Last Admin: 10/13/20 04:57 Dose: 650 mg Documented by: Albuterol Sulfate (Albuterol 2.5 Mg/3 Ml Vial.Neb.) 2.5 mg INHALATION Q2H PRN PRN PRN Reason: SOB/Wheezing Albuterol/Ipratropium (Ipratropium/Albuterol Sulfate 3 Ml Ampul.Neb) 3 ml INHALATION Q4H.RT [facility], [facility] Last Admin: 10/15/20 10:58 Dose: 3 ml Documented by: Amiodarone HCl (Amiodarone 200 Mg Tablet) 200 mg PO DAILYCM [facility], [facility] Last Admin: 10/15/20 08:50 Dose: 200 mg Documented by: Atorvastatin Calcium (Atorvastatin Calcium 80 Mg Tablet) 80 mg PO QHS [facility] Last Admin: 10/14/20 21:21 Dose: 80 mg Documented by: Docusate Sodium (Docusate Sodium 100 Mg Capsule) 100 mg PO BID [facility] Last Admin: 10/15/20 08:50 Dose: 100 mg Documented by: Finasteride (Finasteride 5 Mg Tablet) 5 mg PO DAILY [facility] Last Admin: 10/15/20 08:52 Dose: 5 mg Documented by: Furosemide (Furosemide 40 Mg/4 Ml Vial) 40 mg IV BID@1000,1800 [facility] Last Admin: 10/15/20 08:57 Dose: 40 mg Documented by: Guaifenesin (Guaifenesin Dm 10 Ml Udc) 10 ml PO Q4 [facility] Last Admin: 10/15/20 08:53 Dose: 10 ml Documented by: Heparin Sodium (Porcine) (Heparin Injection (Vial) 5,000 Unit/Ml Vial) 0 unit IV UD PRN; Protocol PRN Reason: dose adjustment Sodium Chloride () 500 mls @ 15 mls/hr IV PRN PRN PRN Reason: Blood Transfusion Sodium Chloride () 250 mls @ 15 mls/hr IV .[id number] PRN PRN Reason: Saline Flush Heparin Sodium/Dextrose () 25,000 units in 250 mls @ 14 mls/hr IV .[id number] [facility], [facility]; Protocol Last Titration: 10/15/20 12:04 Dose: 600 units/hr, 6 mls/hr Documented by: Insulin Glargine (Insulin Glargine 100 Units/Ml Pen) 22 units SC QHS [facility] Last Admin: 10/14/20 21:21 Dose: 22 u Documented by: Insulin Human Lispro (Insulin Lispro 100 Unit/Ml Insuln.Pen) 0 unit SC ACHS [facility], [facility]; Protocol Last Admin: 10/15/20 11:54 Dose: 1 u Documented by: Levothyroxine Sodium (Levothyroxine 50 Mcg Tablet) 50 mcg PO DAILY@0600 [facility] Last Admin: 10/15/20 05:02 Dose: 50 mcg Documented by: Melatonin (Melatonin 10 Mg Tablet) 5 mg PO QHS PRN PRN Reason: SLEEP Last Admin: 10/14/20 01:15 Dose: 5 mg Documented by: Midodrine (Midodrine Hcl 5 Mg Tablet) 10 mg PO [facility] Last Admin: 10/15/20 11:53 Dose: 10 mg Documented by: Nutritional Formula (Lactose Free) (Glucerna Shake 120 Ml Liquid) 120 ml PO [facility] Last Admin: 10/15/20 11:54 Dose: 120 ml Documented by: Ondansetron HCl (Ondansetron 4 Mg/2 Ml Vial) 4 mg IV Q8H PRN PRN PRN Reason: NAUSEA/VOMITING Last Admin: 10/14/20 01:15 Dose: 4 mg Documented by: Pantoprazole Sodium (Pantoprazole Sodium 20 Mg Tablet) 20 mg PO BID [facility] Last Admin: 10/15/20 08:51 Dose: 20 mg Documented by: Senna (Senna Tablet) 1 tablet PO DAILY [facility] Last Admin: 10/15/20 08:53 Dose: 1 tablet Documented by: Sodium Chloride (0.9% Saline Lock 10 Ml Syringe) 10 - 40 ml IV UD PRN PRN Reason: SALINE FLUSH Last Admin: 10/15/20 08:57 Dose: 20 ml Documented by: Tamsulosin HCl (Tamsulosin Hcl 0.4 Mg Capsule) 0.8 mg PO DAILY@0830 [facility] Last Admin: 10/15/20 08:50 Dose: 0.8 mg Documented by: Medical Necessity - Tobacco Use Smoking Status: Former smoker Assessment/Plan All Active Problems Acute blood loss anemia (Acute) Systolic CHF (Acute) Symptomatic anemia (Acute) Congestive heart failure (Acute) Hypotension (Acute) Weakness (Acute) HUONG (acute kidney injury) (Acute) Hyperkalemia (Acute) GI bleed (Resolved) Supratherapeutic INR (Acute) Gross hematuria (Acute) Anticoagulation goal of INR 2.5 to 3.5 (Acute) Facial droop (Resolved) 1. Acute blood loss anemia secondary to GI bleed-Coumadin held on admission. Stool positive for occult blood. Status post 3 units PRBC. Plavix on hold. Continue PPI. Trend CBC. 2. Supratherapeutic INR-resolved following reversal. Will resume Coumadin at reduced dose. Trend INR. 3. Hypotension-stable. Initiated on midodrine. 4. Acute kidney injury on chronic kidney disease stage III-nephrology consulted. Suspect cardiorenal syndrome. IV Lasix. Renal ultrasound pending. Trend BMP. If patient blood pressure does not tolerate Lasix bolus, will transition to Lasix drip. 5. Anasarca-IV Lasix. Antwon wraps bilateral lower extremities. 6. Permanent atrial fibrillation on chronic anticoagulation with Coumadin 7. History of mechanical aortic valve 8. Acute on chronic heart failure with reduced ejection fraction/ischemic cardiomyopathy-EF 30%. IV Lasix as noted above. 9. Chronic COPD-as needed albuterol aerosol. 10. EMERY- continue home pap regimen. 11. CAD-continue statin. Plavix on hold. Metoprolol on hold due to hypotension. 12. Type 2 diabetes [id number] with sliding scale insulin. Continue home insulin regimen. 13. Hypothyroidism-continue Synthroid. 14. GERD-continue PPI. 15. BPH-on Flomax. 16. Schizoaffective disorder-continue home medication regimen. DVT prophylaxis-Heparin drip, resume Coumadin This patient was seen by BENEDICT Morocho under the supervision of Dr. Frye. <Bharti Frye - Last Filed: 10/15/20 15:48> Subjective: Agree with the above and the following is a representation of my independent history and physical examination. The patient continues to complain of edema which has been persistent. He had 1 dose of Lasix yesterday and did have good response with urinary output but it is nowhere near significant enough to pull off the fluid he needs withdrawn. His blood pressures are overall better with the addition of midodrine. We have been able to wean his oxygen to 1 L nasal cannula and he sounds congested although the sounds like upper airway congestion and not truly lung congestion. - Physical Exam Vitals/I&O's: Vital Signs Temp Pulse Resp BP Pulse Ox 97.9 F 88 20 H 102/61 97 10/15/20 14:51 10/15/20 15:05 10/15/20 15:05 10/15/20 14:51 10/15/20 14:51 Oxygen Flow Rate (L/min) 1 Oxygen Delivery Method Nasal Cannula Weight: 99.7 kg Body Mass Index (BMI) 33.0 Finger Stick Blood Glucose 188 Intake and Output for Last 24 Hours 10/13/20 10/14/20 10/15/20 23:59 23:59 23:59 Intake Total 1571 / 1571 867.33 / 987.33 760.05 / 760.05 Output Total 750 / 950 875 / 1125 1150 / 1150 Balance 821 / 621 -7.67 / -137.67 -389.95 / -389.95 General: Alert, Cooperative, No apparent distress, Confused, - - Elderly white male lying in bed, appears comfortable but tired, patient still perseverates on getting his ED placed and insists he saw his surgeon yesterday that said they would place it when he was better during this hospitalization, patient is in no acute distress at this time and of nontoxic appe HEENT: Atraumatic, PERRLA, EOMI, Normocephalic, EAC Clear, - - Tongue is red Oral: Moist Mucosa, - - Dentures in place, Mallampati 2 Neck: Supple, Trachea Midline, Thyroid Normal Size and Texture, JVD, Bilateral Lungs: No rhonchi - Few scattered, Diminished - Diffusely, - - Coarse breath sounds throughout--> improved when patient clear his throat leading me to believe this is predominantly upper airway congestion Cardiovascular: Normal S1, Normal S2, No Ectopic Activity, Murmur, No rub noted, No Gallop, - - Irregular rhythm Abdomen: Bowel Sounds Present, Soft, Non Tender, Non-Distended, Obese Extremities: No clubbing, No cyanosis, Capillary Refill Less than 3 Seconds, Edema - 2-3+ pitting edema/anasarca Skin: No rashes, No breakdown, - - Scattered ecchymosis in various as of healing Musculoskeletal: Arthritic Changes, Muscle Wasting, Tenderness Neurological: Cranial nerves II-XII grossly intact, Neuro grossly intact Psych/Mental Status: Normal Affect, Appropriate Microbiology Past 72 Hours 10/12/20 19:00 Stool Stool Occult Blood (HESHAM) - Final Occult Blood Positive Laboratory Results 10/14/20 15:03: APTT 204.0 H* 10/14/20 17:35: POC Glucose 110 10/14/20 21:18: POC Glucose 170 H 10/15/20 01:40: APTT 182.6 H* 10/15/20 01:40: B-Natriuretic Peptide 798.6 H 10/15/20 02:30: Urine Creatinine 95.40 10/15/20 06:00: PT 19.8 H, INR 1.8 10/15/20 06:00: WBC 5.3, RBC 3.25 L, Hgb 8.3 L, Hct 28.0 L, MCV 86.2, MCH 25.5 L, MCHC 29.6 L, RDW Std Deviation 60.5 H, RDW Coeff of Yessi 19.5 H, Plt Count 148 L, MPV 9.9, Immature Gran % (Auto) 0.200, Neut % (Auto) 74.5 H, Lymph % (Auto) 12.5 L, Routt % (Auto) 11.8 H, Eos % (Auto) 0.8, Baso % (Auto) 0.2, Absolute Neuts (auto) 3.9, Absolute Lymphs (auto) 0.66 L, Nucleated RBC % 0 10/15/20 06:00: Sodium 124 L, Potassium 4.2, Chloride 92 L, Carbon Dioxide 23.0, Anion Gap 9, BUN 99 H, Creatinine 3.23 H, Estim Creat Clear Calc 17.94, Est GFR (MDRD) Af Amer 24 L, Est GFR (MDRD) Non-Af 20 L, BUN/Creatinine Ratio 30.7 H, Glucose 119 H, Calcium 8.2 L, Total Bilirubin 1.00, AST 42 H, ALT 49, Alkaline Phosphatase 241 H, Total Protein 6.0 L, Albumin 2.1 L, Globulin 3.9, Albumin/Globulin Ratio 0.5 L 10/15/20 06:42: POC Glucose 129 H 10/15/20 10:08: APTT 97.2 H* 10/15/20 11:51: POC Glucose 167 H Current Medications Acetaminophen (Acetaminophen 325 Mg Tablet) 650 mg PO Q6H PRN PRN PRN Reason: Pain Score 1-10/Temp > 100.7 F Last Admin: 10/15/20 13:04 Dose: 650 mg Documented by: Albuterol Sulfate (Albuterol 2.5 Mg/3 Ml Vial.Neb.) 2.5 mg INHALATION Q2H PRN PRN PRN Reason: SOB/Wheezing Albuterol/Ipratropium (Ipratropium/Albuterol Sulfate 3 Ml Ampul.Neb) 3 ml INHALATION Q4H.RT [facility], [facility] Last Admin: 10/15/20 15:05 Dose: 3 ml Documented by: Amiodarone HCl (Amiodarone 200 Mg Tablet) 200 mg PO DAILYCM [facility] Last Admin: 10/15/20 08:50 Dose: 200 mg Documented by: Atorvastatin Calcium (Atorvastatin Calcium 80 Mg Tablet) 80 mg PO QHS [facility] Last Admin: 10/14/20 21:21 Dose: 80 mg Documented by: Benzonatate (Benzonatate 100 Mg Capsule) 100 mg PO TID PRN PRN PRN Reason: COUGH Last Admin: 10/15/20 13:04 Dose: 100 mg Documented by: Docusate Sodium (Docusate Sodium 100 Mg Capsule) 100 mg PO BID [facility] Last Admin: 10/15/20 08:50 Dose: 100 mg Documented by: Finasteride (Finasteride 5 Mg Tablet) 5 mg PO DAILY [facility] Last Admin: 10/15/20 08:52 Dose: 5 mg Documented by: Heparin Sodium (Porcine) (Heparin Injection (Vial) 5,000 Unit/Ml Vial) 0 unit IV UD PRN; Protocol PRN Reason: dose adjustment Sodium Chloride () 500 mls @ 15 mls/hr IV PRN PRN PRN Reason: Blood Transfusion Sodium Chloride () 250 mls @ 15 mls/hr IV .[id number] PRN PRN Reason: Saline Flush Heparin Sodium/Dextrose () 25,000 units in 250 mls @ 14 mls/hr IV .[id number] [facility]; Protocol Last Titration: 10/15/20 12:04 Dose: 600 units/hr, 6 mls/hr Documented by: Furosemide 500 mg/ N/A 50 mls @ 2 mls/hr CONT INF .Q25H [facility] Insulin Glargine (Insulin Glargine 100 Units/Ml Pen) 22 units SC QHS [facility] Last Admin: 10/14/20 21:21 Dose: 22 u Documented by: Insulin Human Lispro (Insulin Lispro 100 Unit/Ml Insuln.Pen) 0 unit SC ACHS [facility], [facility]; Protocol Last Admin: 10/15/20 11:54 Dose: 1 u Documented by: Levothyroxine Sodium (Levothyroxine 50 Mcg Tablet) 50 mcg PO DAILY@0600 [facility] Last Admin: 10/15/20 05:02 Dose: 50 mcg Documented by: Melatonin (Melatonin 10 Mg Tablet) 5 mg PO QHS PRN PRN Reason: SLEEP Last Admin: 10/14/20 01:15 Dose: 5 mg Documented by: Midodrine (Midodrine Hcl 5 Mg Tablet) 10 mg PO TIDCM [facility] Last Admin: 10/15/20 11:53 Dose: 10 mg Documented by: Nutritional Formula (Lactose Free) (Glucerna Shake 120 Ml Liquid) 120 ml PO TIDCM [facility] Last Admin: 10/15/20 11:54 Dose: 120 ml Documented by: Ondansetron HCl (Ondansetron 4 Mg/2 Ml Vial) 4 mg IV Q8H PRN PRN PRN Reason: NAUSEA/VOMITING Last Admin: 10/14/20 01:15 Dose: 4 mg Documented by: Pantoprazole Sodium (Pantoprazole Sodium 20 Mg Tablet) 20 mg PO BID [facility] Last Admin: 10/15/20 08:51 Dose: 20 mg Documented by: Senna (Senna Tablet) 1 tablet PO DAILY [facility] Last Admin: 10/15/20 08:53 Dose: 1 tablet Documented by: Sodium Chloride (0.9% Saline Lock 10 Ml Syringe) 10 - 40 ml IV UD PRN PRN Reason: SALINE FLUSH Last Admin: 10/15/20 08:57 Dose: 20 ml Documented by: Tamsulosin HCl (Tamsulosin Hcl 0.4 Mg Capsule) 0.8 mg PO DAILY@0830 [facility] Last Admin: 10/15/20 08:50 Dose: 0.8 mg Documented by: Warfarin Sodium (Jantoven 2 Mg Tablet) 2 mg PO DAILY@1700 [facility] Assessment/Plan ASSESSMENT Acute blood loss anemia Hypotension GI bleeding HUONG on CKD stage IIIb Hyperkalemia-resolved Mild hyperbilirubinemia Supratherapeutic INR-resolved Anasarca Chronic anticoagulation Permanent atrial fibrillation Mechanical aortic valve HFrEF (EF 30%) secondary to ischemic cardiomyopathy--> decompensated Hyperlipidemia COPD EMERY CAD DM-2 Hypothyroidism GERD Constipation BPH History of hematuria Schizoaffective disorder Hyponatremia PLAN -Patient was transfused a total of 3 units of packed red blood cells on 10/13/2020 -Hemoglobin stable again today after initiation of heparin drip at 8.4 despite significant volume overload -Start Coumadin 2 mg daily -Repeat hemoglobin in a.m. -A.M. INR was 1.8 -Continue heparin drip -->mechanical aortic valve until INR is therapeutic -Continue midodrine 10 mg 3 times daily help support blood pressure to enable more aggressive diuresis -Blood pressure is much improved -May need to reinitiate low-dose beta-rocael for heart rate control -Start Lasix drip -Natremia is reflective of significant volume overload we will continue to follow BMPs -Continue to hold blood pressure medications -Serum creatinine continues to improve not yet at baseline--> suspect this is related to cardiorenal syndrome at baseline and HUONG from ATN secondary to hypotension -Retroperitoneal ultrasound performed is unremarkable -Urology is following--> appreciate input -Palliative care following -Suspect bilirubin elevation related to passive hepatic congestion -Oxygenation has remained stable on 1 L nasal cannula with an SPO2 of 97%
[2020-10-15] MEDS: Acetaminophen 325 MG Tablet 650 MG PO (13:04)
[2020-10-15] MEDS: Benzonatate 100 MG Capsule PO (13:04)
[2020-10-15] MEDS: Furosemide 500 MG in Empty Viaflex 50 mL 1 EACH CONT INF (15:47)
[2020-10-15] MEDS: Jantoven 2 MG Tablet PO (17:22)
[2020-10-15 17:25] LABS: Bedside Glucose 184 mg/dL (70-110)
[2020-10-15 18:48] LABS: Partial Thromboplast Time 59.6 Seconds (24.1-36.2)
[2020-10-15] MEDS: Atorvastatin Calcium 80 MG Tablet PO (21:01)
[2020-10-15 21:40] LABS: Bedside Glucose 179 mg/dL (70-110)
[2020-10-16] VITALS (18 sets, daily range): BP systolic 94–103; BP diastolic 57–65; PULSE 78–96; RESP 18–24; TEMP 36.2–36.8; O2SAT 93–96
[2020-10-16] MEDS: Ipratropium/Albuterol Sulfate 3 ML AMPUL.NEB INHALATION ×4 (03:17→20:30)
[2020-10-16] MEDS: Levothyroxine 50 MCG Tablet PO (05:17)
[2020-10-16] MEDS: Furosemide 500 MG in Empty Viaflex 50 mL 1 EACH CONT INF (06:32)
[2020-10-16 06:33] LABS: Absolute Lymphocyte Count 0.84 X10^3/uL (0.83-4.51); Absolute Neutrophil Count 3.9 X10^3/uL (2.0-7.7); Basophil# 0.03 X10^3/uL; Basophil% 0.5 % (0-1); Eosinophil# 0.09 X10^3/uL; Eosinophils% 1.6 % (0-5); Hematocrit 29.7 % (40-54); Hemoglobin 8.4 g/dL (13.0-16.5); Lymphocyte # 0.84 X10^3/ul (4.0); Lymphocyte % 15.3 % (19-41); Mean Corp Hgb Conc 28.3 g/dL (32-36); Mean Corpuscular Hgb 25.8 pg (27.0-32.0); Mean Corpuscular Volume 91.4 fL (80-94); Mean Platelet Vol. 10.1 fl (6.2-12.0); Monocyte# 0.64 X10^3/uL; Monocyte% 11.7 % (0-10); NRBC Flagged by Analyzer 0 % (0-5); Neutrophil # 3.88 X10^3/uL (2.7-7.7); Neutrophil % 70.7 % (47-70); POSITIVE MORPHOLOGY YES; Platelet Count 159 K/mm3 (150-450); RBC Distribution Width CV 20.4 % (11.6-14.6); RBC Distribution Width SD 66.8 fl (35.1-43.9); Red Blood Count 3.25 M/mm3 (4.6-6.2); White Blood Count 5.5 K/mm3 (4.4-11.0)
[2020-10-16 06:34] LABS: Differential Indicated SCAN CRITERIA MET
[2020-10-16 06:43] LABS: International Normalized Ratio 2.1; Prothrombin Time (Protime)PT. 23.1 SECONDS (11.7-14.9)
[2020-10-16 06:45] LABS: Partial Thromboplast Time 77.7 Seconds (24.1-36.2)
[2020-10-16 06:53] LABS: Anion Gap 7 (5-15); BUN 89 mg/dL (7-18); Calcium,Total 8.3 mg/dL (8.5-10.1); Chloride 101 mmol/L (98-107); Creatinine, Serum 2.78 mg/dL (0.70-1.30); EST Glomerular Filtration Rate 24 mL/min (>60); Est Glom Filt Rate - Afr Amer 29 mL/min (>60); Estimated Creatinine Clearance 20.85 ml/min; Glucose 72 mg/dL (74-106); Sodium Level 135 mmol/L (136-145)
[2020-10-16 07:21] LABS: Bedside Glucose 70 mg/dL (70-110)
[2020-10-16 07:21] LABS: Bedside Glucose 69 mg/dL (70-110)
[2020-10-16] MEDS: Senna Tablet 1 TABLET PO (08:09)
[2020-10-16] MEDS: Pantoprazole Sodium 20 MG Tablet PO ×2 (08:09→21:38)
[2020-10-16] MEDS: Docusate Sodium 100 MG Capsule PO ×2 (08:09→21:38)
[2020-10-16] MEDS: Tamsulosin HCl 0.4 MG Capsule 0.8 MG PO (08:09)
[2020-10-16] MEDS: Finasteride 5 MG Tablet PO (08:09)
[2020-10-16] MEDS: Midodrine HCl 5 MG Tablet 10 MG PO ×3 (08:09→16:45)
[2020-10-16] MEDS: Amiodarone 200 MG Tablet PO (08:10)
[2020-10-16] MEDS: Glucerna Shake 120 ML LIQUID PO ×3 (08:13→16:49)
[2020-10-16 11:06] LABS: Bedside Glucose 94 mg/dL (70-110)
[2020-10-16 11:06] LABS: Bedside Glucose 138 mg/dL (70-110)
--- NOTE | 2020-10-16 12:14 | PCM.PN.REN ---
Patient Problems: Active and Suspected Problems Acute blood loss anemia (Acute) Systolic CHF (Acute) Symptomatic anemia (Acute) Congestive heart failure (Acute) Hypotension (Acute) Weakness (Acute) HUONG (acute kidney injury) (Acute) Supratherapeutic INR (Acute) Anticoagulation goal of INR 2.5 to 3.5 (Acute) Subjective: no new complaints UE edema better - Physical Exam Vitals/I&O's: Vital Signs Temp Pulse Resp BP Pulse Ox 98.2 F 89 24 H 98/57 L 95 10/16/20 08:00 10/16/20 11:10 10/16/20 11:10 10/16/20 08:00 10/16/20 08:00 Oxygen Flow Rate (L/min) 1 Oxygen Delivery Method Room Air Weight: 97.5 kg Body Mass Index (BMI) 33.0 Finger Stick Blood Glucose 188 Intake and Output for Last 24 Hours 10/14/20 10/15/20 10/16/20 23:59 23:59 23:59 Intake Total 867.33 / 987.33 960.05 / 1010.05 439.5 / 439.5 Output Total 875 / 1125 1450 / 2450 2800 / 2800 Balance -7.67 / -137.67 -489.95 / -1439.95 -2360.5 / -2360.5 General: Alert, Oriented x3, Cooperative HEENT: Atraumatic, PERRLA, EOMI, Normocephalic Neck: Supple, No JVD, Negative Carotid Bruits Lungs: Clear to auscultation, Normal air movement Cardiovascular: Regular rate, No murmurs Abdomen: Bowel Sounds Present, Soft, Non Tender Extremities: Capillary Refill Less than 3 Seconds, Edema Skin: No rashes, No breakdown Musculoskeletal: No Tenderness to Palpation of Joints or Extremities Neurological: Cranial nerves II-XII grossly intact Psych/Mental Status: Normal Affect, Appropriate Laboratory Results 10/12/20 19:02: Crossmatch See Detail 10/15/20 02:30: Eos Smear Total Cells Pending 10/15/20 17:19: POC Glucose 184 H 10/15/20 17:58: APTT 59.6 H 10/15/20 20:58: POC Glucose 179 H 10/16/20 00:30: APTT 68.0 H 10/16/20 06:24: PT 23.1 H, INR 2.1, APTT 77.7 H 10/16/20 06:24: WBC 5.5, RBC 3.25 L, Hgb 8.4 L, Hct 29.7 L, MCV 91.4 D, MCH 25.8 L, MCHC 28.3 L, RDW Std Deviation 66.8 H, RDW Coeff of Yessi 20.4 H, Plt Count 159, MPV 10.1, Immature Gran % (Auto) 0.200, Neut % (Auto) 70.7 H, Lymph % (Auto) 15.3 L, [place] % (Auto) 11.7 H, Eos % (Auto) 1.6, Baso % (Auto) 0.5, Absolute Neuts (auto) 3.9, Absolute Lymphs (auto) 0.84, Nucleated RBC % 0 10/16/20 06:24: Sodium 135 L, Potassium 4.0, Chloride 101, Carbon Dioxide 27.0, Anion Gap 7, BUN 89 H, Creatinine 2.78 H, Estim Creat Clear Calc 20.85, Est GFR (MDRD) Af Amer 29 L, Est GFR (MDRD) Non-Af 24 L, BUN/Creatinine Ratio 32.0 H, Glucose 72 L, Calcium 8.3 L 10/16/20 06:35: POC Glucose 69 L 10/16/20 07:01: POC Glucose 70 10/16/20 08:17: POC Glucose 94 10/16/20 11:03: POC Glucose 138 H Current Medications Acetaminophen (Acetaminophen 325 Mg Tablet) 650 mg PO Q6H PRN PRN PRN Reason: Pain Score 1-10/Temp > 100.7 F Last Admin: 10/15/20 13:04 Dose: 650 mg Documented by: Albuterol Sulfate (Albuterol 2.5 Mg/3 Ml Vial.Neb.) 2.5 mg INHALATION Q2H PRN PRN PRN Reason: SOB/Wheezing Albuterol/Ipratropium (Ipratropium/Albuterol Sulfate 3 Ml Ampul.Neb) 3 ml INHALATION Q4H.RT [facility] Last Admin: 10/16/20 11:09 Dose: 3 ml Documented by: Amiodarone HCl (Amiodarone 200 Mg Tablet) 200 mg PO DAILYCM [facility] Last Admin: 10/16/20 08:10 Dose: 200 mg Documented by: Atorvastatin Calcium (Atorvastatin Calcium 80 Mg Tablet) 80 mg PO QHS [facility] Last Admin: 10/15/20 21:01 Dose: 80 mg Documented by: Benzonatate (Benzonatate 100 Mg Capsule) 100 mg PO TID PRN PRN PRN Reason: COUGH Last Admin: 10/15/20 13:04 Dose: 100 mg Documented by: Docusate Sodium (Docusate Sodium 100 Mg Capsule) 100 mg PO BID [facility] Last Admin: 10/16/20 08:09 Dose: 100 mg Documented by: Finasteride (Finasteride 5 Mg Tablet) 5 mg PO DAILY [facility] Last Admin: 10/16/20 08:09 Dose: 5 mg Documented by: Heparin Sodium (Porcine) (Heparin Injection (Vial) 5,000 Unit/Ml Vial) 0 unit IV UD PRN; Protocol PRN Reason: dose adjustment Sodium Chloride () 500 mls @ 15 mls/hr IV PRN PRN PRN Reason: Blood Transfusion Sodium Chloride () 250 mls @ 15 mls/hr IV .[id number] PRN PRN Reason: Saline Flush Heparin Sodium/Dextrose () 25,000 units in 250 mls @ 14 mls/hr IV .[id number] [facility]; Protocol Last Admin: 10/16/20 07:48 Dose: Not Given Documented by: Furosemide 500 mg/ N/A 50 mls @ 2 mls/hr CONT INF .Q25H [facility] Last Admin: 10/16/20 06:32 Dose: 20 mg/hr, 2 mls/hr Documented by: Insulin Glargine (Insulin Glargine 100 Units/Ml Pen) 22 units SC QHS [facility] Last Admin: 10/15/20 21:00 Dose: 22 u Documented by: Insulin Human Lispro (Insulin Lispro 100 Unit/Ml Insuln.Pen) 0 unit [facility]; Protocol Last Admin: 10/16/20 12:03 Dose: Not Given Documented by: Levothyroxine Sodium (Levothyroxine 50 Mcg Tablet) 50 mcg PO DAILY@0600 [facility] Last Admin: 10/16/20 05:17 Dose: 50 mcg Documented by: Melatonin (Melatonin 10 Mg Tablet) 5 mg PO QHS PRN PRN Reason: SLEEP Last Admin: 10/14/20 01:15 Dose: 5 mg Documented by: Midodrine (Midodrine Hcl 5 Mg Tablet) 10 mg PO TIDCM [facility] Last Admin: 10/16/20 12:02 Dose: 10 mg Documented by: Nutritional Formula (Lactose Free) (Glucerna Shake 120 Ml Liquid) 120 ml PO TIDCM [facility] Last Admin: 10/16/20 12:03 Dose: 120 ml Documented by: Ondansetron HCl (Ondansetron 4 Mg/2 Ml Vial) 4 mg IV Q8H PRN PRN PRN Reason: NAUSEA/VOMITING Last Admin: 10/14/20 01:15 Dose: 4 mg Documented by: Pantoprazole Sodium (Pantoprazole Sodium 20 Mg Tablet) 20 mg PO BID [facility] Last Admin: 10/16/20 08:09 Dose: 20 mg Documented by: Senna (Senna Tablet) 1 tablet PO DAILY [facility] Last Admin: 10/16/20 08:09 Dose: 1 tablet Documented by: Sodium Chloride (0.9% Saline Lock 10 Ml Syringe) 10 - 40 ml IV UD PRN PRN Reason: SALINE FLUSH Last Admin: 10/15/20 08:57 Dose: 20 ml Documented by: Tamsulosin HCl (Tamsulosin Hcl 0.4 Mg Capsule) 0.8 mg PO DAILY@0830 [facility] Last Admin: 10/16/20 08:09 Dose: 0.8 mg Documented by: Warfarin Sodium (Jantoven 2 Mg Tablet) 2 mg PO DAILY@1700 [facility] Last Admin: 10/15/20 17:22 Dose: 2 mg Documented by: Medical Necessity - Tobacco Use Smoking Status: Former smoker Assessment/Plan All Active Problems Acute blood loss anemia (Acute) Systolic CHF (Acute) Symptomatic anemia (Acute) Congestive heart failure (Acute) Hypotension (Acute) Weakness (Acute) HUONG (acute kidney injury) (Acute) Hyperkalemia (Acute) GI bleed (Resolved) Supratherapeutic INR (Acute) Gross hematuria (Acute) Anticoagulation goal of INR 2.5 to 3.5 (Acute) Facial droop (Resolved) acute renal failure CKD stage IV reviewed old records. Over the last 6 months, creatinine has ranged between2-2.6. He has known history of congestive heart failure with low ejection fraction at 30%. Currently has a Byers catheter. Previous abdominal imaging from last admission did not show any hydronephrosis. Chances of obstruction or low. Came in with severe anemia, decompensated heart failure. Acute renal failure is likely cardiorenal syndrome. He has significant volume overload. Blood pressure has been on the lower side, he was started on Midodrine. Blood pressure is better today. Chest imaging shows signs of fluid overload. Plan did pretty well on lasix drip. urine output is about 2.2 L. sodium is better. weight is down. breathing is ok. BUN and cr are actually better. continue same for today Hypervolemic hyponatremia. better with lasix Anemia. Due to extensive bruising in the setting of coagulopathy. Blood transfusion as per primary service Discussed with hospitalist service
--- NOTE | 2020-10-16 13:49 | PN_ITS ---
<Elpidio Ramosssica CUSTOMER COMPLAINT SERVICE SUPERVISOR - Last Filed: 10/16/20 13:54> Patient Problems: Active and Suspected Problems Acute blood loss anemia (Acute) Systolic CHF (Acute) Symptomatic anemia (Acute) Congestive heart failure (Acute) Hypotension (Acute) Weakness (Acute) HUONG (acute kidney injury) (Acute) Supratherapeutic INR (Acute) Anticoagulation goal of INR 2.5 to 3.5 (Acute) Subjective: Patient seen and examined. Reports improvement in generalized swelling and breathing. Continues to have productive cough. Denies fever, chills. - Physical Exam Vitals/I&O's: Vital Signs Temp Pulse Resp BP Pulse Ox 98.2 F 89 24 H 98/57 L 95 10/16/20 08:00 10/16/20 11:10 10/16/20 11:10 10/16/20 08:00 10/16/20 08:00 Oxygen Flow Rate (L/min) 1 Oxygen Delivery Method Room Air Weight: 214 lb 15.211 oz Body Mass Index (BMI) 33.0 Finger Stick Blood Glucose 188 Intake and Output for Last 24 Hours 10/14/20 10/15/20 10/16/20 23:59 23:59 23:59 Intake Total 867.33 / 987.33 960.05 / 1010.05 439.5 / 439.5 Output Total 875 / 1125 1450 / 2450 2800 / 2800 Balance -7.67 / -137.67 -489.95 / -1439.95 -2360.5 / -2360.5 General: Alert, Oriented x3, Cooperative HEENT: Atraumatic, PERRLA, EOMI, Normocephalic Neck: Supple, No JVD, Negative Carotid Bruits Lungs: Diminished, - - Coarse breath sounds Cardiovascular: Regular rate, No murmurs Abdomen: Bowel Sounds Present, Soft, Non Tender, Non-Distended Extremities: No clubbing, No cyanosis, - - Generalized swelling, +3 bilateral lower extremity edema Skin: No rashes, No breakdown Musculoskeletal: No Tenderness to Palpation of Joints or Extremities Neurological: Cranial nerves II-XII grossly intact, Neuro grossly intact Psych/Mental Status: Normal Affect, Appropriate Laboratory Results 10/12/20 19:02: Crossmatch See Detail 10/15/20 02:30: Eos Smear Total Cells Pending 10/15/20 17:19: POC Glucose 184 H 10/15/20 17:58: APTT 59.6 H 10/15/20 20:58: POC Glucose 179 H 10/16/20 00:30: APTT 68.0 H 10/16/20 06:24: PT 23.1 H, INR 2.1, APTT 77.7 H 10/16/20 06:24: WBC 5.5, RBC 3.25 L, Hgb 8.4 L, Hct 29.7 L, MCV 91.4 D, MCH 25.8 L, MCHC 28.3 L, RDW Std Deviation 66.8 H, RDW Coeff of Yessi 20.4 H, Plt Count 159, MPV 10.1, Immature Gran % (Auto) 0.200, Neut % (Auto) 70.7 H, Lymph % (Auto) 15.3 L, Emery % (Auto) 11.7 H, Eos % (Auto) 1.6, Baso % (Auto) 0.5, Absolute Neuts (auto) 3.9, Absolute Lymphs (auto) 0.84, Nucleated RBC % 0 10/16/20 06:24: Sodium 135 L, Potassium 4.0, Chloride 101, Carbon Dioxide 27.0, Anion Gap 7, BUN 89 H, Creatinine 2.78 H, Estim Creat Clear Calc 20.85, Est GFR (MDRD) Af Amer 29 L, Est GFR (MDRD) Non-Af 24 L, BUN/Creatinine Ratio 32.0 H, Glucose 72 L, Calcium 8.3 L 10/16/20 06:35: POC Glucose 69 L 10/16/20 07:01: POC Glucose 70 10/16/20 08:17: POC Glucose 94 10/16/20 11:03: POC Glucose 138 H Current Medications Acetaminophen (Acetaminophen 325 Mg Tablet) 650 mg PO Q6H PRN PRN PRN Reason: Pain Score 1-10/Temp > 100.7 F Last Admin: 10/15/20 13:04 Dose: 650 mg Documented by: Albuterol Sulfate (Albuterol 2.5 Mg/3 Ml Vial.Neb.) 2.5 mg INHALATION Q2H PRN PRN PRN Reason: SOB/Wheezing Albuterol/Ipratropium (Ipratropium/Albuterol Sulfate 3 Ml Ampul.Neb) 3 ml INHALATION Q4H.RT [facility] Last Admin: 10/16/20 11:09 Dose: 3 ml Documented by: Amiodarone HCl (Amiodarone 200 Mg Tablet) 200 mg PO DAILYCM [facility] Last Admin: 10/16/20 08:10 Dose: 200 mg Documented by: Atorvastatin Calcium (Atorvastatin Calcium 80 Mg Tablet) 80 mg PO QHS [facility] Last Admin: 10/15/20 21:01 Dose: 80 mg Documented by: Benzonatate (Benzonatate 100 Mg Capsule) 100 mg PO TID PRN PRN PRN Reason: COUGH Last Admin: 10/15/20 13:04 Dose: 100 mg Documented by: Docusate Sodium (Docusate Sodium 100 Mg Capsule) 100 mg PO BID [facility] Last Admin: 10/16/20 08:09 Dose: 100 mg Documented by: Finasteride (Finasteride 5 Mg Tablet) 5 mg PO DAILY [facility] Last Admin: 10/16/20 08:09 Dose: 5 mg Documented by: Heparin Sodium (Porcine) (Heparin Injection (Vial) 5,000 Unit/Ml Vial) 0 unit IV UD PRN; Protocol PRN Reason: dose adjustment Sodium Chloride () 500 mls @ 15 mls/hr IV PRN PRN PRN Reason: Blood Transfusion Sodium Chloride () 250 mls @ 15 mls/hr IV .[id number] PRN PRN Reason: Saline Flush Heparin Sodium/Dextrose () 25,000 units in 250 mls @ 14 mls/hr IV .[id number] [facility]; Protocol Last Admin: 10/16/20 07:48 Dose: Not Given Documented by: Furosemide 500 mg/ N/A 50 mls @ 2 mls/hr CONT INF .Q25H [facility] Last Admin: 10/16/20 06:32 Dose: 20 mg/hr, 2 mls/hr Documented by: Insulin Glargine (Insulin Glargine 100 Units/Ml Pen) 22 units SC QHS [facility] Last Admin: 10/15/20 21:00 Dose: 22 u Documented by: Insulin Human Lispro (Insulin Lispro 100 Unit/Ml Insuln.Pen) 0 unit SC ACHS [facility]; Protocol Last Admin: 10/16/20 12:03 Dose: Not Given Documented by: Levothyroxine Sodium (Levothyroxine 50 Mcg Tablet) 50 mcg PO DAILY@0600 [facility] Last Admin: 10/16/20 05:17 Dose: 50 mcg Documented by: Melatonin (Melatonin 10 Mg Tablet) 5 mg PO QHS PRN PRN Reason: SLEEP Last Admin: 10/14/20 01:15 Dose: 5 mg Documented by: Midodrine (Midodrine Hcl 5 Mg Tablet) 10 mg PO TIDCM [facility] Last Admin: 10/16/20 12:02 Dose: 10 mg Documented by: Nutritional Formula (Lactose Free) (Glucerna Shake 120 Ml Liquid) 120 ml PO TIDCM [facility] Last Admin: 10/16/20 12:03 Dose: 120 ml Documented by: Ondansetron HCl (Ondansetron 4 Mg/2 Ml Vial) 4 mg IV Q8H PRN PRN PRN Reason: NAUSEA/VOMITING Last Admin: 10/14/20 01:15 Dose: 4 mg Documented by: Pantoprazole Sodium (Pantoprazole Sodium 20 Mg Tablet) 20 mg PO BID [facility] Last Admin: 10/16/20 08:09 Dose: 20 mg Documented by: Senna (Senna Tablet) 1 tablet PO DAILY [facility] Last Admin: 10/16/20 08:09 Dose: 1 tablet Documented by: Sodium Chloride (0.9% Saline Lock 10 Ml Syringe) 10 - 40 ml IV UD PRN PRN Reason: SALINE FLUSH Last Admin: 10/15/20 08:57 Dose: 20 ml Documented by: Tamsulosin HCl (Tamsulosin Hcl 0.4 Mg Capsule) 0.8 mg PO DAILY@0830 [facility] Last Admin: 10/16/20 08:09 Dose: 0.8 mg Documented by: Warfarin Sodium (Jantoven 2 Mg Tablet) 2 mg PO DAILY@1700 [facility] Last Admin: 10/15/20 17:22 Dose: 2 mg Documented by: Medical Necessity - Tobacco Use Smoking Status: Former smoker Assessment/Plan All Active Problems Acute blood loss anemia (Acute) Systolic CHF (Acute) Symptomatic anemia (Acute) Congestive heart failure (Acute) Hypotension (Acute) Weakness (Acute) HUONG (acute kidney injury) (Acute) Hyperkalemia (Acute) GI bleed (Resolved) Supratherapeutic INR (Acute) Gross hematuria (Acute) Anticoagulation goal of INR 2.5 to 3.5 (Acute) Facial droop (Resolved) 1. Acute blood loss anemia secondary to GI bleed-Coumadin held on admission. Stool positive for occult blood. Status post 3 units PRBC. Plavix on hold. Continue PPI. Trend CBC. 2. Supratherapeutic INR-resolved following reversal. Coumadin resumed at lower dose. Trend INR. 3. Hypotension-stable. Initiated on midodrine. 4. Acute kidney injury on chronic kidney disease stage III-nephrology consulted. Suspect cardiorenal syndrome. Lasix drip. Renal ultrasound normal. Trend BMP. Creatinine improving with Lasix drip. 5. Anasarca-IV Lasix drip. Antwon wraps bilateral lower extremities. 6. Permanent atrial fibrillation on chronic anticoagulation with Coumadin 7. History of mechanical aortic valve 8. Acute on chronic heart failure with reduced ejection fraction/ischemic cardiomyopathy-EF 30%. IV Lasix as noted above. 9. Chronic COPD-as needed albuterol aerosol. 10. EMERY- continue home pap regimen. 11. CAD-continue statin. Plavix on hold. Metoprolol on hold due to hypotension. 12. Type 2 diabetes [id number] with sliding scale insulin. Continue home insulin regimen. 13. Hypothyroidism-continue Synthroid. 14. GERD-continue PPI. 15. BPH-on Flomax. 16. Schizoaffective disorder-continue home medication regimen. DVT prophylaxis-Coumadin This patient was seen by BENEDICT Morocho under the supervision of Dr. Frye. <Bharti Frye - Last Filed: 10/16/20 14:40> Subjective: I agree with the above and the following is representation my independent history and physical examination. Patient is currently resting comfortably in bed. He states he feels improved. Does not comment on ICD placement today. Complains that the tip of his penis is sore. - Physical Exam Vitals/I&O's: Vital Signs Temp Pulse Resp BP Pulse Ox 98.2 F 89 24 H 98/57 L 95 10/16/20 08:00 10/16/20 11:10 10/16/20 11:10 10/16/20 08:00 10/16/20 08:00 Oxygen Flow Rate (L/min) 1 Oxygen Delivery Method Room Air Weight: 97.5 kg Body Mass Index (BMI) 33.0 Finger Stick Blood Glucose 188 Intake and Output for Last 24 Hours 10/14/20 10/15/20 10/16/20 23:59 23:59 23:59 Intake Total 867.33 / 987.33 960.05 / 1010.05 439.5 / 439.5 Output Total 875 / 1125 1450 / 2450 2800 / 2800 Balance -7.67 / -137.67 -489.95 / -1439.95 -2360.5 / -2360.5 General: Alert, Oriented x3, Cooperative, - - Elderly white male who appears older than stated age, lying in bed, appears more comfortable than he has been HEENT: Atraumatic, PERRLA, EOMI, Normocephalic, EAC Clear Oral: Moist Mucosa, No Gingival or Mucosal Lesions/ Ulcerations, - - Edentulous, no thrush, Mallampati 2 Neck: Supple, Trachea Midline, Thyroid Normal Size and Texture, JVD, Bilateral Lungs: No rhonchi, No wheeze, Diminished - Diffusely, Rales - Fine crackles at bases, - - Coarse breath sounds-predominantly from upper airway, patient has a weak cough Cardiovascular: Regular rate, Normal S1, Normal S2, Murmur, No rub noted, No Gallop, - - Irregular rhythm Abdomen: Bowel Sounds Present, Soft, Non Tender, Non-Distended, Obese Extremities: No clubbing, No cyanosis, Capillary Refill Less than 3 Seconds, Edema - 2-3+ pitting edema bilateral lower extremities-slowly improving, Peripheral Pulses Normal, - Skin: No rashes, No breakdown, - - Scattered ecchymosis in different stages of healing, anasarca Musculoskeletal: No Tenderness to Palpation of Joints or Extremities, Arthritic Changes, Muscle Wasting Neurological: Cranial nerves II-XII grossly intact, Neuro grossly intact, Muscle tone normal, - - Marked generalized weakness Psych/Mental Status: Normal Affect, Appropriate, - - Pleasant Laboratory Results 10/12/20 19:02: Crossmatch See Detail 10/15/20 02:30: Eos Smear Total Cells Pending 10/15/20 17:19: POC Glucose 184 H 10/15/20 17:58: APTT 59.6 H 10/15/20 20:58: POC Glucose 179 H 10/16/20 00:30: APTT 68.0 H 10/16/20 06:24: PT 23.1 H, INR 2.1, APTT 77.7 H 10/16/20 06:24: WBC 5.5, RBC 3.25 L, Hgb 8.4 L, Hct 29.7 L, MCV 91.4 D, MCH 25.8 L, MCHC 28.3 L, RDW Std Deviation 66.8 H, RDW Coeff of Yessi 20.4 H, Plt Count 159, MPV 10.1, Immature Gran % (Auto) 0.200, Neut % (Auto) 70.7 H, Lymph % (Auto) 15.3 L, Emery % (Auto) 11.7 H, Eos % (Auto) 1.6, Baso % (Auto) 0.5, Absolute Neuts (auto) 3.9, Absolute Lymphs (auto) 0.84, Nucleated RBC % 0 10/16/20 06:24: Sodium 135 L, Potassium 4.0, Chloride 101, Carbon Dioxide 27.0, Anion Gap 7, BUN 89 H, Creatinine 2.78 H, Estim Creat Clear Calc 20.85, Est GFR (MDRD) Af Amer 29 L, Est GFR (MDRD) Non-Af 24 L, BUN/Creatinine Ratio 32.0 H, Glucose 72 L, Calcium 8.3 L 10/16/20 06:35: POC Glucose 69 L 10/16/20 07:01: POC Glucose 70 10/16/20 08:17: POC Glucose 94 10/16/20 11:03: POC Glucose 138 H Current Medications Acetaminophen (Acetaminophen 325 Mg Tablet) 650 mg PO Q6H PRN PRN PRN Reason: Pain Score 1-10/Temp > 100.7 F Last Admin: 10/15/20 13:04 Dose: 650 mg Documented by: Albuterol Sulfate (Albuterol 2.5 Mg/3 Ml Vial.Neb.) 2.5 mg INHALATION Q2H PRN PRN PRN Reason: SOB/Wheezing Albuterol/Ipratropium (Ipratropium/Albuterol Sulfate 3 Ml Ampul.Neb) 3 ml INHALATION Q4H.RT [facility] Last Admin: 10/16/20 11:09 Dose: 3 ml Documented by: Amiodarone HCl (Amiodarone 200 Mg Tablet) 200 mg PO DAILYCM [facility] Last Admin: 10/16/20 08:10 Dose: 200 mg Documented by: Atorvastatin Calcium (Atorvastatin Calcium 80 Mg Tablet) 80 mg PO QHS [facility] Last Admin: 10/15/20 21:01 Dose: 80 mg Documented by: Benzonatate (Benzonatate 100 Mg Capsule) 100 mg PO TID PRN PRN PRN Reason: COUGH Last Admin: 10/15/20 13:04 Dose: 100 mg Documented by: Docusate Sodium (Docusate Sodium 100 Mg Capsule) 100 mg PO BID [facility] Last Admin: 10/16/20 08:09 Dose: 100 mg Documented by: Finasteride (Finasteride 5 Mg Tablet) 5 mg PO DAILY [facility] Last Admin: 10/16/20 08:09 Dose: 5 mg Documented by: Sodium Chloride () 500 mls @ 15 mls/hr IV PRN PRN PRN Reason: Blood Transfusion Sodium Chloride () 250 mls @ 15 mls/hr IV .[id number] PRN PRN Reason: Saline Flush Furosemide 500 mg/ N/A 50 mls @ 2 mls/hr CONT INF .Q25H [facility] Last Admin: 10/16/20 06:32 Dose: 20 mg/hr, 2 mls/hr Documented by: Insulin Glargine (Insulin Glargine 100 Units/Ml Pen) [facility] Last Admin: 10/15/20 21:00 Dose: 22 u Documented by: Insulin Human Lispro (Insulin Lispro 100 Unit/Ml Insuln.Pen) 0 unit SC [facility]; Protocol Last Admin: 10/16/20 12:03 Dose: Not Given Documented by: Levothyroxine Sodium (Levothyroxine 50 Mcg Tablet) 50 mcg PO DAILY@0600 [facility] Last Admin: 10/16/20 05:17 Dose: 50 mcg Documented by: Melatonin (Melatonin 10 Mg Tablet) 5 mg PO QHS PRN PRN Reason: SLEEP Last Admin: 10/14/20 01:15 Dose: 5 mg Documented by: Metoprolol Tartrate (Metoprolol Tartrate 25 Mg Tablet) 12.5 mg PO BID [facility] Midodrine (Midodrine Hcl 5 Mg Tablet) 10 mg PO TIDCM [facility] Last Admin: 10/16/20 12:02 Dose: 10 mg Documented by: Nutritional Formula (Lactose Free) (Glucerna Shake 120 Ml Liquid) 120 ml PO TIDCM [facility] Last Admin: 10/16/20 12:03 Dose: 120 ml Documented by: Ondansetron HCl (Ondansetron 4 Mg/2 Ml Vial) 4 mg IV Q8H PRN PRN PRN Reason: NAUSEA/VOMITING Last Admin: 10/14/20 01:15 Dose: 4 mg Documented by: Pantoprazole Sodium (Pantoprazole Sodium 20 Mg Tablet) 20 mg PO BID [facility] Last Admin: 10/16/20 08:09 Dose: 20 mg Documented by: Senna (Senna Tablet) 1 tablet PO DAILY [facility] Last Admin: 10/16/20 08:09 Dose: 1 tablet Documented by: Sodium Chloride (0.9% Saline Lock 10 Ml Syringe) 10 - 40 ml IV UD PRN PRN Reason: SALINE FLUSH Last Admin: 10/15/20 08:57 Dose: 20 ml Documented by: Tamsulosin HCl (Tamsulosin Hcl 0.4 Mg Capsule) 0.8 mg PO DAILY@0830 [facility] Last Admin: 10/16/20 08:09 Dose: 0.8 mg Documented by: Warfarin Sodium (Jantoven 2 Mg Tablet) 2 mg PO DAILY@1700 [facility] Last Admin: 10/15/20 17:22 Dose: 2 mg Documented by: Assessment/Plan ASSESSMENT Acute blood loss anemia Hypotension GI bleeding HUONG on CKD stage IIIb Hyperkalemia-resolved Mild hyperbilirubinemia Supratherapeutic INR-resolved Anasarca Chronic anticoagulation Permanent atrial fibrillation Mechanical aortic valve HFrEF (EF 30%) secondary to ischemic cardiomyopathy--> decompensated Hyperlipidemia COPD EMERY CAD DM-2 Hypothyroidism GERD Constipation BPH History of hematuria Schizoaffective disorder Hyponatremia PLAN -Patient was transfused a total of 3 units of packed red blood cells on 10/13/2020 -Hemoglobin remains stable -Continue Coumadin 2 mg daily -A.M. INR was 2.1 -continue heparin drip at this time until we have 2 therapeutic INRs-->mechanical aortic valve until INR goal is 2-3 -Continue midodrine 10 mg 3 times daily help support blood pressure with Lasix drip -Blood pressure remains improved -Heart rate remains in the 80-90 range--> low-dose metoprolol was reinitiated with hold parameters -Continue Lasix drip -Patient has diuresed well and weight is down 2.2 kg in the last 24 hours -Sodium is improved today with diuresis indicating it was likely hypervolemic hyponatremia -Continue to hold blood pressure medications -Serum creatinine continues to improve and is close to baseline of 2-2.6 -Nephrology is following--> appreciate input -Palliative care following -Suspect bilirubin elevation related to passive hepatic congestion -Patient has been weaned to room air and is now 96% -Chest x-ray in a.m. -Add Mucinex twice daily Inpatient E&M: 83902 Subs Hosp L3
[2020-10-16] MEDS: Insulin Lispro 100 UNIT/ML INSULN.PEN SC (16:45)
[2020-10-16] MEDS: Jantoven 2 MG Tablet PO (16:46)
[2020-10-16 16:56] LABS: Bedside Glucose 201 mg/dL (70-110)
[2020-10-16] MEDS: Atorvastatin Calcium 80 MG Tablet PO (21:38)
[2020-10-16] MEDS: guaiFENesin 1,200 MG Tablet 1200 MG PO (21:38)
[2020-10-16 21:50] LABS: Bedside Glucose 149 mg/dL (70-110)
[2020-10-17] VITALS (20 sets, daily range): BP systolic 95–113; BP diastolic 60–74; PULSE 67–95; RESP 18–27; TEMP 36.6–37; O2SAT 89–98
[2020-10-17] MEDS: Levothyroxine 50 MCG Tablet PO (05:35)
--- NOTE | 2020-10-17 05:55 | RAD_ITS ---
STUDY: X-RAY CHEST REASON FOR EXAM: Male, 80 years old. CHF, Productive Cough TECHNIQUE: Single AP portable view of the chest. COMPARISON: 10/14/2020 FINDINGS: Valvular prosthesis is in place. Similar residual areas of interstitial edema and alveolar edema are present. Mild increased left effusion is present. There is moderate cardiac enlargement. Normal mediastinum and roberth. Normal visualized pulmonary arteries. Normal visualized aortic arch and descending thoracic aorta. There are diffuse degenerative changes of the visualized thoracic spine. Normal visualized ribs, clavicles, and shoulders. There is no demonstrated abnormality of the visualized soft tissue structures of the upper abdomen. RAD/Chest 1 View (Portable) IMPRESSION: Similar interstitial and alveolar edema with mildly increased left pleural effusion. Electronically Signed: Cal Lu DO at 7:06 EDT , Service support ,
[2020-10-17 06:46] LABS: Bedside Glucose 147 mg/dL (70-110)
[2020-10-17 07:30] LABS: Absolute Neutrophil Count 4.7 X10^3/uL (2.0-7.7); Basophil# 0.03 X10^3/uL; Basophil% 0.5 % (0-1); Eosinophil# 0.03 X10^3/uL; Eosinophils% 0.5 % (0-5); Hematocrit 27.9 % (40-54); Hemoglobin 8.3 g/dL (13.0-16.5); Lymphocyte % 14.5 % (19-41); Mean Corp Hgb Conc 29.7 g/dL (32-36); Mean Corpuscular Hgb 25.3 pg (27.0-32.0); Mean Corpuscular Volume 85.1 fL (80-94); Mean Platelet Vol. 9.9 fl (6.2-12.0); Monocyte# 0.59 X10^3/uL; Monocyte% 9.5 % (0-10); NRBC Flagged by Analyzer 0 % (0-5); Neutrophil # 4.65 X10^3/uL (2.7-7.7); Neutrophil % 74.7 % (47-70); POSITIVE MORPHOLOGY YES; Platelet Count 180 K/mm3 (150-450); RBC Distribution Width CV 20.2 % (11.6-14.6); RBC Distribution Width SD 61.1 fl (35.1-43.9); Red Blood Count 3.28 M/mm3 (4.6-6.2); White Blood Count 6.2 K/mm3 (4.4-11.0)
[2020-10-17] MEDS: Furosemide 500 MG in Empty Viaflex 50 mL 1 EACH CONT INF (07:53)
[2020-10-17 07:58] LABS: Anion Gap 6 (5-15); BUN 78 mg/dL (7-18); BUN/Creat Ratio 31.8 RATIO (10-20); Calcium,Total 8.3 mg/dL (8.5-10.1); Chloride 101 mmol/L (98-107); Creatinine, Serum 2.45 mg/dL (0.70-1.30); EST Glomerular Filtration Rate 27 mL/min (>60); Est Glom Filt Rate - Afr Amer 33 mL/min (>60); Estimated Creatinine Clearance 23.65 ml/min; Glucose 136 mg/dL (74-106); Potassium 3.9 mmol/L (3.5-5.1); Sodium Level 135 mmol/L (136-145)
[2020-10-17 07:59] LABS: International Normalized Ratio 2.5; Prothrombin Time (Protime)PT. 26.5 SECONDS (11.7-14.9)
[2020-10-17 08:00] LABS: Differential Indicated SCAN CRITERIA MET
[2020-10-17] MEDS: Ipratropium/Albuterol Sulfate 3 ML AMPUL.NEB INHALATION ×5 (08:28→23:37)
[2020-10-17 08:42] LABS: Partial Thromboplast Time 44.6 Seconds (24.1-36.2)
[2020-10-17 09:26] LABS: Differential Comment SCANNED
[2020-10-17] MEDS: Finasteride 5 MG Tablet PO (09:51)
[2020-10-17] MEDS: Tamsulosin HCl 0.4 MG Capsule 0.8 MG PO (09:51)
[2020-10-17] MEDS: Pantoprazole Sodium 20 MG Tablet PO ×2 (09:51→21:58)
[2020-10-17] MEDS: Amiodarone 200 MG Tablet PO (09:51)
[2020-10-17] MEDS: Docusate Sodium 100 MG Capsule PO (09:52)
[2020-10-17] MEDS: guaiFENesin 1,200 MG Tablet 1200 MG PO ×2 (09:52→21:58)
[2020-10-17] MEDS: Midodrine HCl 5 MG Tablet 10 MG PO ×3 (09:52→17:33)
[2020-10-17] MEDS: Senna Tablet 1 TABLET PO (09:53)
--- NOTE | 2020-10-17 11:43 | PN_ITS ---
<RichardCheryl COMPUTER ASSISTANT - Last Filed: 10/17/20 11:47> Patient Problems: Active and Suspected Problems Acute blood loss anemia (Acute) Systolic CHF (Acute) Symptomatic anemia (Acute) Congestive heart failure (Acute) Hypotension (Acute) Weakness (Acute) HUONG (acute kidney injury) (Acute) Supratherapeutic INR (Acute) Anticoagulation goal of INR 2.5 to 3.5 (Acute) Subjective: Patient seen and examined. Reports improvement in breathing and cough. Also notes improvement in generalized swelling. Denies other symptoms or complaints. - Physical Exam Vitals/I&O's: Vital Signs Temp Pulse Resp BP Pulse Ox 97.9 F 88 25 H 99/74 95 10/17/20 09:47 10/17/20 11:10 10/17/20 11:10 10/17/20 09:47 10/17/20 10:01 Oxygen Flow Rate (L/min) 1 Oxygen Delivery Method Nasal Cannula Weight: 216 lb 4.375 oz Body Mass Index (BMI) 33.0 Finger Stick Blood Glucose 188 Intake and Output for Last 24 Hours 10/15/20 10/16/20 10/17/20 23:59 23:59 23:59 Intake Total 960.05 / 1010.05 1075.1 / 1075.1 75 / 75 Output Total 1450 / 2450 4225 / 4225 850 / 850 Balance -489.95 / -1439.95 -3149.9 / -3149.9 -775 / -775 General: Alert, Oriented x3, Cooperative HEENT: Atraumatic, PERRLA, EOMI, Normocephalic Neck: Supple, No JVD, Negative Carotid Bruits Lungs: Clear to auscultation, Diminished Cardiovascular: Regular rate, No murmurs Abdomen: Bowel Sounds Present, Soft, Non Tender Extremities: No clubbing, No cyanosis, Edema - Bilateral lower extremities, Antwon wraps in place Skin: No rashes, No breakdown Musculoskeletal: No Tenderness to Palpation of Joints or Extremities Neurological: Cranial nerves II-XII grossly intact, Neuro grossly intact Psych/Mental Status: Normal Affect, Appropriate Laboratory Results 10/16/20 16:43: POC Glucose 201 H 10/16/20 21:26: POC Glucose 149 H 10/17/20 06:38: POC Glucose 147 H 10/17/20 06:50: PT 26.5 H, INR 2.5, APTT 44.6 H 10/17/20 06:50: WBC 6.2, RBC 3.28 L, Hgb 8.3 L, Hct 27.9 L, MCV 85.1 D, MCH 25.3 L, MCHC 29.7 L, RDW Std Deviation 61.1 H, RDW Coeff of Yessi 20.2 H, Plt Count 180, MPV 9.9, Immature Gran % (Auto) 0.300, Neut % (Auto) 74.7 H, Lymph % (Auto) 14.5 L, Crockett % (Auto) 9.5, Eos % (Auto) 0.5, Baso % (Auto) 0.5, Absolute Neuts (auto) 4.7, Absolute Lymphs (auto) 0.90, Nucleated RBC % 0, Differential Comment SCANNED 10/17/20 06:50: Sodium 135 L, Potassium 3.9, Chloride 101, Carbon Dioxide 28.0, Anion Gap 6, BUN 78 H, Creatinine 2.45 H, Estim Creat Clear Calc 23.65, Est GFR (MDRD) Af Amer 33 L, Est GFR (MDRD) Non-Af 27 L, BUN/Creatinine Ratio 31.8 H, Glucose 136 H, Calcium 8.3 L Current Medications Acetaminophen (Acetaminophen 325 Mg Tablet) 650 mg PO Q6H PRN PRN PRN Reason: Pain Score 1-10/Temp > 100.7 F Last Admin: 10/15/20 13:04 Dose: 650 mg Documented by: Albuterol Sulfate (Albuterol 2.5 Mg/3 Ml Vial.Neb.) 2.5 mg INHALATION Q2H PRN P RN PRN Reason: SOB/Wheezing Albuterol/Ipratropium (Ipratropium/Albuterol Sulfate 3 Ml Ampul.Neb) 3 ml INHALATION Q4H.RT [facility] Last Admin: 10/17/20 11:10 Dose: 3 ml Documented by: Amiodarone HCl (Amiodarone 200 Mg Tablet) 200 mg PO DAILYCM [facility] Last Admin: 10/17/20 09:51 Dose: 200 mg Documented by: Atorvastatin Calcium (Atorvastatin Calcium 80 Mg Tablet) 80 mg PO QHS [facility] Last Admin: 10/16/20 21:38 Dose: 80 mg Documented by: Benzonatate (Benzonatate 100 Mg Capsule) 100 mg PO TID PRN PRN PRN Reason: COUGH Last Admin: 10/15/20 13:04 Dose: 100 mg Documented by: Docusate Sodium (Docusate Sodium 100 Mg Capsule) 100 mg PO BID [facility] Last Admin: 10/17/20 09:52 Dose: 100 mg Documented by: Finasteride (Finasteride 5 Mg Tablet) 5 mg PO DAILY [facility] Last Admin: 10/17/20 09:51 Dose: 5 mg Documented by: Guaifenesin (Guaifenesin 1,200 Mg Tablet) 1,200 mg PO BID [facility] Last Admin: 10/17/20 09:52 Dose: 1,200 mg Documented by: Sodium Chloride () 500 mls @ 15 mls/hr IV PRN PRN PRN Reason: Blood Transfusion Sodium Chloride () 250 mls @ 15 mls/hr IV .[id number] PRN PRN Reason: Saline Flush Furosemide 500 mg/ N/A 50 mls @ 2 mls/hr CONT INF .Q25H [facility] Last Admin: 10/17/20 07:53 Dose: 20 mg/hr, 2 mls/hr Documented by: Insulin Glargine (Insulin Glargine 100 Units/Ml Pen) 22 units SC QHS [facility] Last Admin: 10/16/20 21:37 Dose: 22 u Documented by: Insulin Human Lispro (Insulin Lispro 100 Unit/Ml Insuln.Pen) 0 unit SC [facility]; Protocol Last Admin: 10/17/20 06:39 Dose: Not Given Documented by: Levothyroxine Sodium (Levothyroxine 50 Mcg Tablet) 50 mcg PO DAILY@0600 [facility] Last Admin: 10/17/20 05:35 Dose: 50 mcg Documented by: Melatonin (Melatonin 10 Mg Tablet) 5 mg PO QHS PRN PRN Reason: SLEEP Last Admin: 10/14/20 01:15 Dose: 5 mg Documented by: Metoprolol Tartrate (Metoprolol Tartrate 25 Mg Tablet) 12.5 mg PO BID [facility] Last Admin: 10/17/20 09:52 Dose: Not Given Documented by: Midodrine (Midodrine Hcl 5 Mg Tablet) 10 mg PO TIDCM [facility] Last Admin: 10/17/20 09:52 Dose: 10 mg Documented by: Nutritional Formula (Lactose Free) (Glucerna Shake 120 Ml Liquid) 120 ml PO TIDCM [facility] Last Admin: 10/17/20 09:51 Dose: Not Given Documented by: Ondansetron HCl (Ondansetron 4 Mg/2 Ml Vial) 4 mg IV Q8H PRN PRN PRN Reason: NAUSEA/VOMITING Last Admin: 10/14/20 01:15 Dose: 4 mg Documented by: Pantoprazole Sodium (Pantoprazole Sodium 20 Mg Tablet) 20 mg PO BID [facility] Last Admin: 10/17/20 09:51 Dose: 20 mg Documented by: Senna (Senna Tablet) 1 tablet PO DAILY [facility] Last Admin: 10/17/20 09:53 Dose: 1 tablet Documented by: Sodium Chloride (0.9% Saline Lock 10 Ml Syringe) 10 - 40 ml IV UD PRN PRN Reason: SALINE FLUSH Last Admin: 10/15/20 08:57 Dose: 20 ml Documented by: Tamsulosin HCl (Tamsulosin Hcl 0.4 Mg Capsule) 0.8 mg PO DAILY@0830 [facility] Last Admin: 10/17/20 09:51 Dose: 0.8 mg Documented by: Warfarin Sodium 1 mg/ Warfarin (Sodium 0.5 mg) 1.5 mg PO DAILY@1700 [facility] Medical Necessity - Tobacco Use Smoking Status: Former smoker Assessment/Plan All Active Problems Acute blood loss anemia (Acute) Systolic CHF (Acute) Symptomatic anemia (Acute) Congestive heart failure (Acute) Hypotension (Acute) Weakness (Acute) HUONG (acute kidney injury) (Acute) Hyperkalemia (Acute) GI bleed (Resolved) Supratherapeutic INR (Acute) Gross hematuria (Acute) Anticoagulation goal of INR 2.5 to 3.5 (Acute) Facial droop (Resolved) 1. Acute blood loss anemia secondary to GI bleed-Coumadin held on admission. Stool positive for occult blood. Status post 3 units PRBC. Plavix on hold. Continue PPI. Trend CBC. Remains stable. 2. Supratherapeutic INR-resolved following reversal. Coumadin resumed at lower dose. Trend INR. 3. Hypotension-stable. Initiated on midodrine. 4. Acute kidney injury on chronic kidney disease stage III-nephrology consulted. Suspect cardiorenal syndrome. Lasix drip. Renal ultrasound normal. Trend BMP. Creatinine improving with Lasix drip. 5. Anasarca-IV Lasix drip. Antwon wraps bilateral lower extremities. 6. Permanent atrial fibrillation on chronic anticoagulation with Coumadin 7. History of mechanical aortic valve 8. Acute on chronic heart failure with reduced ejection fraction/ischemic cardiomyopathy-EF 30%. IV Lasix as noted above. 9. Chronic COPD-as needed albuterol aerosol. 10. EMERY- continue home pap regimen. 11. CAD-continue statin. Plavix on hold. Resume low-dose metoprolol with hold parameters. 12. Type 2 diabetes [id number] with sliding scale insulin. Continue home insulin regimen. 13. Hypothyroidism-continue Synthroid. 14. GERD-continue PPI. 15. BPH-on Flomax. 16. Schizoaffective disorder-continue home medication regimen. DVT prophylaxis-Coumadin This patient was seen by BENEDICT Morocho under the supervision of Dr. Frye. <Bharti Frye - Last Filed: 10/17/20 13:41> Subjective: I agree with the above and the following is representation of my independent history and physical examination. Patient still complains that he is short of breath mostly with exertion but states overall he is improved. He has noted his swelling is better. Again perseverates on having an ICD placed in it we again discussed that that is not going to improve his overall function at this point and discussed the purpose of placing an ICD with his current EF. - Physical Exam Vitals/I&O's: Vital Signs Temp Pulse Resp BP Pulse Ox 97.9 F 88 25 H 99/74 95 10/17/20 09:47 10/17/20 11:10 10/17/20 11:10 10/17/20 09:47 10/17/20 10:01 Oxygen Flow Rate (L/min) 1 Oxygen Delivery Method Nasal Cannula Weight: 98.1 kg Body Mass Index (BMI) 33.0 Finger Stick Blood Glucose 188 Intake and Output for Last 24 Hours 10/15/20 10/16/20 10/17/20 23:59 23:59 23:59 Intake Total 960.05 / 1010.05 1075.1 / 1075.1 315 / 315 Output Total 1450 / 2450 4225 / 4225 1350 / 1350 Balance -489.95 / -1439.95 -3149.9 / -3149.9 -1035 / -1035 General: Alert, Oriented x3, Cooperative, - - Elderly white male sitting up in bed, nontoxic in no distress at this time HEENT: Atraumatic, PERRLA, EOMI, Normocephalic, EAC Clear Oral: Moist Mucosa, No Gingival or Mucosal Lesions/ Ulcerations Neck: Supple, Trachea Midline, Thyroid Normal Size and Texture, JVD, Bilateral Lungs: Diminished - Fusilli, Rales - Few bilateral bases, - - Upper airway rhonchi but clears with cough although cough is weak Cardiovascular: Regular rate, Normal S1, Normal S2, No Ectopic Activity, Murmur, No rub noted, No Gallop, - - Irregular rhythm Abdomen: Bowel Sounds Present, Soft, Non Tender, Non-Distended, No hernias noted Extremities: No clubbing, No cyanosis, Capillary Refill Less than 3 Seconds, Edema - Bilateral lower extremities, Antwon wraps in place--> I was able to evaluate the patient prior to Antwon wrap being placed there is currently approximately 2+ pitting edema which is improved, Peripheral Pulses Normal Skin: No rashes, No breakdown, - - Scattered bilateral upper extremity ecchymos is Musculoskeletal: No Tenderness to Palpation of Joints or Extremities, Arthritic Changes, Muscle Wasting Neurological: Cranial nerves II-XII grossly intact, Neuro grossly intact, Muscle tone normal, Sensory exam intact to light touch and pain, Coordination normal Psych/Mental Status: Appropriate, Anxious Laboratory Results 10/15/20 02:30: Eos Smear Total Cells No Eosinophils Seen 10/16/20 16:43: POC Glucose 201 H 10/16/20 21:26: POC Glucose 149 H 10/17/20 06:38: POC Glucose 147 H 10/17/20 06:50: PT 26.5 H, INR 2.5, APTT 44.6 H 10/17/20 06:50: WBC 6.2, RBC 3.28 L, Hgb 8.3 L, Hct 27.9 L, MCV 85.1 D, MCH 25.3 L, MCHC 29.7 L, RDW Std Deviation 61.1 H, RDW Coeff of Yessi 20.2 H, Plt Count 180, MPV 9.9, Immature Gran % (Auto) 0.300, Neut % (Auto) 74.7 H, Lymph % (Auto) 14.5 L, Crockett % (Auto) 9.5, Eos % (Auto) 0.5, Baso % (Auto) 0.5, Absolute Neuts (auto) 4.7, Absolute Lymphs (auto) 0.90, Nucleated RBC % 0, Differential Comment SCANNED 10/17/20 06:50: Sodium 135 L, Potassium 3.9, Chloride 101, Carbon Dioxide 28.0, Anion Gap 6, BUN 78 H, Creatinine 2.45 H, Estim Creat Clear Calc 23.65, Est GFR (MDRD) Af Amer 33 L, Est GFR (MDRD) Non-Af 27 L, BUN/Creatinine Ratio 31.8 H, Glucose 136 H, Calcium 8.3 L 10/17/20 12:08: POC Glucose 141 H Current Medications Acetaminophen (Acetaminophen 325 Mg Tablet) 650 mg PO Q6H PRN PRN PRN Reason: Pain Score 1-10/Temp > 100.7 F Last Admin: 10/15/20 13:04 Dose: 650 mg Documented by: Albuterol Sulfate (Albuterol 2.5 Mg/3 Ml Vial.Neb.) 2.5 mg INHALATION Q2H PRN PRN PRN Reason: SOB/Wheezing Albuterol/Ipratropium (Ipratropium/Albuterol Sulfate 3 Ml Ampul.Neb) 3 ml INHALATION Q4H.RT [facility] Last Admin: 10/17/20 11:10 Dose: 3 ml Documented by: [facility]iodarone [facility] ([facility] 200 [facility]) [facility] Last Admin: 10/17/20 09:51 Dose: 200 mg Documented by: Atorvastatin Calcium (Atorvastatin Calcium 80 Mg Tablet) 80 mg PO QHS [facility] Last Admin: 10/16/20 21:38 Dose: 80 mg Documented by: Benzonatate (Benzonatate 100 Mg Capsule) 100 mg PO TID PRN PRN PRN Reason: COUGH Last Admin: 10/15/20 13:04 Dose: 100 mg Documented by: Docusate Sodium (Docusate Sodium 100 Mg Capsule) 100 mg PO BID [facility] Last Admin: 10/17/20 09:52 Dose: 100 mg Documented by: Finasteride (Finasteride 5 Mg Tablet) 5 mg PO DAILY [facility] Last Admin: 10/17/20 09:51 Dose: 5 mg Documented by: Guaifenesin (Guaifenesin 1,200 Mg Tablet) 1,200 mg PO BID [facility] Last Admin: 10/17/20 09:52 Dose: 1,200 mg Documented by: Sodium Chloride () 500 mls @ 15 mls/hr IV PRN PRN PRN Reason: Blood Transfusion Sodium Chloride () 250 mls @ 15 mls/hr IV .[id number] PRN PRN Reason: Saline Flush Furosemide 500 mg/ N/A 50 mls @ 2 mls/hr CONT INF .Q25H [facility] Last Admin: 10/17/20 07:53 Dose: 20 mg/hr, 2 mls/hr Documented by: Insulin Glargine (Insulin Glargine 100 Units/Ml Pen) 22 units SC QHS [facility] Last Admin: 10/16/20 21:37 Dose: 22 u Documented by: Insulin Human Lispro (Insulin Lispro 100 Unit/Ml Insuln.Pen) 0 unit SC ACHS [facility]; Protocol Last Admin: 10/17/20 12:09 Dose: Not Given Documented by: Levothyroxine Sodium (Levothyroxine 50 Mcg Tablet) 50 mcg PO DAILY@0600 [facility] Last Admin: 10/17/20 05:35 Dose: 50 mcg Documented by: Melatonin (Melatonin 10 Mg Tablet) 5 mg PO QHS PRN PRN Reason: SLEEP Last Admin: 10/14/20 01:15 Dose: 5 mg Documented by: Metoprolol Tartrate (Metoprolol Tartrate 25 Mg Tablet) 12.5 mg PO BID [facility] Last Admin: 10/17/20 09:52 Dose: Not Given Documented by: Midodrine (Midodrine Hcl 5 Mg Tablet) 10 mg PO TIDCM [facility] Last Admin: 10/17/20 12:10 Dose: 10 mg Documented by: Nutritional Formula (Lactose Free) (Glucerna Shake 120 Ml Liquid) 120 ml PO TIDCM [facility] Last Admin: 10/17/20 12:14 Dose: 120 ml Documented by: Ondansetron HCl (Ondansetron 4 Mg/2 Ml Vial) 4 mg IV Q8H PRN PRN PRN Reason: NAUSEA/VOMITING Last Admin: 10/14/20 01:15 Dose: 4 mg Documented by: Pantoprazole Sodium (Pantoprazole Sodium 20 Mg Tablet) 20 mg PO BID [facility] Last Admin: 10/17/20 09:51 Dose: 20 mg Documented by: Senna (Senna Tablet) 1 tablet PO DAILY [facility] Last Admin: 10/17/20 09:53 Dose: 1 tablet Documented by: Sodium Chloride (0.9% Saline Lock 10 Ml Syringe) 10 - 40 ml IV UD PRN PRN Reason: SALINE FLUSH Last Admin: 10/15/20 08:57 Dose: 20 ml Documented by: Tamsulosin HCl (Tamsulosin Hcl 0.4 Mg Capsule) 0.8 mg PO DAILY@0830 [facility] Last Admin: 10/17/20 09:51 Dose: 0.8 mg Documented by: Warfarin Sodium 1 mg/ Warfarin (Sodium 0.5 mg) 1.5 mg PO DAILY@1700 [facility] Assessment/Plan ASSESSMENT Acute blood loss anemia Hypotension-resolved with midodrine GI bleeding-resolved HUONG on CKD stage IIIb-resolved HUONG Hyperkalemia-resolved Mild hyperbilirubinemia Supratherapeutic INR-resolved Anasarca Chronic anticoagulation Permanent atrial fibrillation Mechanical aortic valve HFrEF (EF 30%) secondary to ischemic cardiomyopathy--> decompensated Hyperlipidemia COPD EMERY CAD DM-2 Hypothyroidism GERD Constipation BPH History of hematuria Schizoaffective disorder Hyponatremia PLAN -Patient was transfused a total of 3 units of packed red blood cells on 10/13/2020 -Hemoglobin remains stable at 8.3 -Continue Coumadin decreased to 1.5 daily as rate of rise is significant 2 mg daily -A.M. INR was 2.5 from 2.1 yesterday -Stop heparin drip -Continue midodrine 10 mg 3 times daily help support blood pressure with Lasix drip -Blood pressure remains improved -Continue Lasix drip again today but increase to 30 from 20--> may consider bolus Lasix starting tomorrow depending on response today -Patient continues to diurese well and overall looks less volume overloaded -Chest x-ray appears about the same -Patient remains on room air to 1 L nasal cannula with stable oxygen saturations on 1 L nasal cannula between 93 and 95% -He had been on room air but desaturated to 89% and therefore was replaced to 1 L -Sodium remains stable -Continue to hold blood pressure medications -Serum creatinine continues to improve and today is 2.45 --> and is now in baseline range of 2-2.6 -Nephrology is following--> appreciate input -Palliative care following -Suspect bilirubin elevation related to passive hepatic congestion -Continue Mucinex twice daily -Add Acapella/Pep therapy -Restart Plavix today monitor hemoglobin closely Inpatient E&M: 48788 Subs Hosp L3
[2020-10-17] MEDS: Glucerna Shake 120 ML LIQUID PO ×2 (12:14→17:32)
[2020-10-17 12:26] LABS: Bedside Glucose 141 mg/dL (70-110)
[2020-10-17 12:30] LABS: Eosinophil Ct. Urine No Eosinophils Seen % (.)
[2020-10-17] MEDS: Insulin Lispro 100 UNIT/ML INSULN.PEN SC ×2 (17:32→21:59)
[2020-10-17] MEDS: Warfarin 1 MG, Warfarin 0.5 MG 1.5 MG PO (17:36)
[2020-10-17 17:46] LABS: Bedside Glucose 167 mg/dL (70-110)
--- NOTE | 2020-10-17 19:47 | PN.RENAL_ITS ---
Patient Problems: Active and Suspected Problems Acute blood loss anemia (Acute) Systolic CHF (Acute) Symptomatic anemia (Acute) Congestive heart failure (Acute) Hypotension (Acute) Weakness (Acute) HUONG (acute kidney injury) (Acute) Supratherapeutic INR (Acute) Anticoagulation goal of INR 2.5 to 3.5 (Acute) Subjective: Following for acute kidney injury on chronic kidney disease. The patient continues to be short of breath with exertion. He denies chest pain, nausea or vomiting. Lower extremity edema is still bothersome. He also has loose BMs. - Physical Exam Vitals/I&O's: Vital Signs Temp Pulse Resp BP Pulse Ox 98.3 F 87 26 H 95/63 97 10/17/20 15:59 10/17/20 19:35 10/17/20 19:35 10/17/20 15:59 10/17/20 15:59 Oxygen Flow Rate (L/min) 2 Oxygen Delivery Method Nasal Cannula Weight: 98.1 kg Body Mass Index (BMI) 33.0 Finger Stick Blood Glucose 188 Intake and Output for Last 24 Hours 10/15/20 10/16/20 10/17/20 23:59 23:59 23:59 Intake Total 960.05 / 1010.05 1075.1 / 1075.1 887.7 / 887.7 Output Total 1450 / 2450 4225 / 4225 1825 / 1825 Balance -489.95 / -1439.95 -3149.9 / -3149.9 -937.3 / -937.3 General: Alert, Oriented x3, Cooperative, No apparent distress HEENT: Atraumatic, PERRLA, Normocephalic Oral: Moist Mucosa Neck: Supple Lungs: Diminished, Using Accessory Muscles, - - Paradoxic breathing Cardiovascular: Normal S1, Normal S2, No murmurs Abdomen: Bowel Sounds Present, Soft, Non Tender Extremities: Edema - 3+ Laboratory Results 10/15/20 02:30: Eos Smear Total Cells No Eosinophils Seen 10/16/20 21:26: POC Glucose 149 H 10/17/20 06:38: POC Glucose 147 H 10/17/20 06:50: PT 26.5 H, INR 2.5, APTT 44.6 H 10/17/20 06:50: WBC 6.2, RBC 3.28 L, Hgb 8.3 L, Hct 27.9 L, MCV 85.1 D, MCH 25.3 L, MCHC 29.7 L, RDW Std Deviation 61.1 H, RDW Coeff of Yessi 20.2 H, Plt Count 180, MPV 9.9, Immature Gran % (Auto) 0.300, Neut % (Auto) 74.7 H, Lymph % (Auto) 14.5 L, [place] % (Auto) 9.5, Eos % (Auto) 0.5, Baso % (Auto) 0.5, Absolute Neuts (auto) 4.7, Absolute Lymphs (auto) 0.90, Nucleated RBC % 0, Differential Comment SCANNED 10/17/20 06:50: Sodium 135 L, Potassium 3.9, Chloride 101, Carbon Dioxide 28.0, Anion Gap 6, BUN 78 H, Creatinine 2.45 H, Estim Creat Clear Calc 23.65, Est GFR (MDRD) Af Amer 33 L, Est GFR (MDRD) Non-Af 27 L, BUN/Creatinine Ratio 31.8 H, Glucose 136 H, Calcium 8.3 L 10/17/20 12:08: POC Glucose 141 H 10/17/20 17:31: POC Glucose 167 H Current Medications Acetaminophen (Acetaminophen 325 Mg Tablet) 650 mg PO Q6H PRN PRN PRN Reason: Pain Score 1-10/Temp > 100.7 F Last Admin: 10/15/20 13:04 Dose: 650 mg Documented by: Albuterol Sulfate (Albuterol 2.5 Mg/3 Ml Vial.Neb.) 2.5 mg INHALATION Q2H PRN PRN PRN Reason: SOB/Wheezing Albuterol/Ipratropium (Ipratropium/Albuterol Sulfate 3 Ml Ampul.Neb) 3 ml INHALATION Q4H.RT [facility] Last Admin: 10/17/20 19:35 Dose: 3 ml Documented by: Amiodarone HCl (Amiodarone 200 Mg Tablet) [facility] Last Admin: 10/17/20 09:51 Dose: 200 mg Documented by: Atorvastatin Calcium (Atorvastatin Calcium 80 Mg Tablet) 80 mg PO QHS [facility] Last Admin: 10/16/20 21:38 Dose: 80 mg Documented by: Benzonatate (Benzonatate 100 Mg Capsule) 100 mg PO TID PRN PRN PRN Reason: COUGH Last Admin: 10/15/20 13:04 Dose: 100 mg Documented by: Clopidogrel Bisulfate (Clopidogrel Bisulfate 75 Mg Tablet) 75 mg PO DAILY [facility] Docusate Sodium (Docusate Sodium 100 Mg Capsule) 100 mg PO BID [facility] Last Admin: 10/17/20 09:52 Dose: 100 mg Documented by: Finasteride (Finasteride 5 Mg Tablet) 5 mg PO DAILY [facility] Last Admin: 10/17/20 09:51 Dose: 5 mg Documented by: Guaifenesin (Guaifenesin 1,200 Mg Tablet) 1,200 mg PO BID [facility] Last Admin: 10/17/20 09:52 Dose: 1,200 mg Documented by: Sodium Chloride () 500 mls @ 15 mls/hr IV PRN PRN PRN Reason: Blood Transfusion Sodium Chloride () 250 mls @ 15 mls/hr IV .[id number] PRN PRN Reason: Saline Flush Furosemide 500 mg/ N/A 50 mls @ 3 mls/hr CONT INF .[id number] [facility] Last Infusion: 10/17/20 14:14 Dose: 30 mg/hr, 3 mls/hr Documented by: Insulin Glargine (Insulin Glargine 100 Units/Ml Pen) 22 units SC QHS [facility] Last Admin: 10/16/20 21:37 Dose: 22 u Documented by: Insulin Human Lispro (Insulin Lispro 100 Unit/Ml Insuln.Pen) 0 unit SC [facility]; Protocol Last Admin: 10/17/20 17:32 Dose: 1 u Documented by: Levothyroxine Sodium (Levothyroxine 50 Mcg Tablet) 50 mcg PO DAILY@0600 [facility] Last Admin: 10/17/20 05:35 Dose: 50 mcg Documented by: Melatonin (Melatonin 10 Mg Tablet) 5 mg PO QHS PRN PRN Reason: SLEEP Last Admin: 10/14/20 01:15 Dose: 5 mg Documented by: Metoprolol Tartrate (Metoprolol Tartrate 25 Mg Tablet) 12.5 mg PO BID [facility] Last Admin: 10/17/20 09:52 Dose: Not Given Documented by: Midodrine (Midodrine Hcl 5 Mg Tablet) 10 mg PO TIDCM [facility] Last Admin: 10/17/20 17:33 Dose: 10 mg Documented by: Nutritional Formula (Lactose Free) (Glucerna Shake 120 Ml Liquid) 120 ml PO TID CM [facility] Last Admin: 10/17/20 17:32 Dose: 120 ml Documented by: Ondansetron HCl (Ondansetron 4 Mg/2 Ml Vial) 4 mg IV Q8H PRN PRN PRN Reason: NAUSEA/VOMITING Last Admin: 10/14/20 01:15 Dose: 4 mg Documented by: Pantoprazole Sodium (Pantoprazole Sodium 20 Mg Tablet) 20 mg PO BID [facility] Last Admin: 10/17/20 09:51 Dose: 20 mg Documented by: Senna (Senna Tablet) 1 tablet PO DAILY [facility] Last Admin: 10/17/20 09:53 Dose: 1 tablet Documented by: Sodium Chloride (0.9% Saline Lock 10 Ml Syringe) 10 - 40 ml IV UD PRN PRN Reason: SALINE FLUSH Last Admin: 10/15/20 08:57 Dose: 20 ml Documented by: Tamsulosin HCl (Tamsulosin Hcl 0.4 Mg Capsule) 0.8 mg PO DAILY@0830 [facility] Last Admin: 10/17/20 09:51 Dose: 0.8 mg Documented by: Warfarin Sodium 1 mg/ Warfarin (Sodium 0.5 mg) 1.5 mg PO DAILY@1700 [facility] Last Admin: 10/17/20 17:36 Dose: 1.5 mg Documented by: Medical Necessity - Tobacco Use Smoking Status: Former smoker Assessment/Plan All Active Problems Acute blood loss anemia (Acute) Systolic CHF (Acute) Symptomatic anemia (Acute) Congestive heart failure (Acute) Hypotension (Acute) Weakness (Acute) HUONG (acute kidney injury) (Acute) Hyperkalemia (Acute) GI bleed (Resolved) Supratherapeutic INR (Acute) Gross hematuria (Acute) Anticoagulation goal of INR 2.5 to 3.5 (Acute) Facial droop (Resolved) 1. Acute kidney injury on chronic kidney disease stage IV. Baseline serum creatinine has been around 2.0 to 2.6 mg/dL. Suspect CKD may be secondary to diabetic kidney disease. HUONG is likely due to cardiorenal syndrome. Renal function has stabilized despite aggressive diuresis with furosemide drip. The patient still appears to be fluid overloaded. Therefore, I would continue the current attempt to diurese the patient while monitoring his renal function, electrolytes, and acid?base status closely. There is no urgent need for kidney replacement therapy at this point. The current medications were reviewed, and they are all appropriately dosed for his estimated creatinine clearance. 2. Decompensated heart failure. The patient has heart failure with reduced ejection fraction. EF is 30%. The patient is on beta-rocael. He is not on AL inhibitor because of acute kidney injury. So, blood pressure has been soft. Cannot add hydralazine/nitrate at this point because of low blood pressure. 3. Hyponatremia. This is mild and asymptomatic. Continue to monitor serum sodium while we are diuresing the patient. 4. Anemia. Hemoglobin is 8.3 g/dL, but hemoglobin is relatively stable for the past 48 hours. Continue to follow hemoglobin levels. We will consider adding MARIAM. Check iron stores.
[2020-10-17] MEDS: Metoprolol Tartrate 25 MG Tablet 12.5 MG PO (21:58)
[2020-10-17] MEDS: Atorvastatin Calcium 80 MG Tablet PO (21:58)
[2020-10-17 22:10] LABS: Bedside Glucose 186 mg/dL (70-110)
[2020-10-18] VITALS (17 sets, daily range): BP systolic 87–109; BP diastolic 47–66; PULSE 68–92; RESP 18–28; TEMP 36.3–36.6; O2SAT 93–98
[2020-10-18] MEDS: Furosemide 500 MG in Empty Viaflex 50 mL 1 EACH CONT INF (02:45)
[2020-10-18 05:50] LABS: Absolute Neutrophil Count 4.4 X10^3/uL (2.0-7.7); Basophil# 0.02 X10^3/uL; Basophil% 0.3 % (0-1); Eosinophil# 0.06 X10^3/uL; Hematocrit 27.9 % (40-54); Hemoglobin 8.3 g/dL (13.0-16.5); Mean Corp Hgb Conc 29.7 g/dL (32-36); Mean Corpuscular Hgb 25.5 pg (27.0-32.0); Mean Corpuscular Volume 85.6 fL (80-94); Mean Platelet Vol. 10.3 fl (6.2-12.0); Monocyte# 0.62 X10^3/uL; Monocyte% 10.3 % (0-10); NRBC Flagged by Analyzer 0 % (0-5); Neutrophil # 4.38 X10^3/uL (2.7-7.7); Neutrophil % 72.9 % (47-70); POSITIVE MORPHOLOGY YES; Platelet Count 186 K/mm3 (150-450); RBC Distribution Width CV 20.7 % (11.6-14.6); RBC Distribution Width SD 62.4 fl (35.1-43.9); Red Blood Count 3.26 M/mm3 (4.6-6.2)
[2020-10-18 06:06] LABS: Differential Indicated SCAN CRITERIA MET
[2020-10-18 06:19] LABS: Anion Gap 6 (5-15); BUN 75 mg/dL (7-18); BUN/Creat Ratio 31.9 RATIO (10-20); Calcium,Total 8.5 mg/dL (8.5-10.1); Chloride 102 mmol/L (98-107); Creatinine, Serum 2.35 mg/dL (0.70-1.30); EST Glomerular Filtration Rate 29 mL/min (>60); Est Glom Filt Rate - Afr Amer 35 mL/min (>60); Estimated Creatinine Clearance 24.66 ml/min; Ferritin 88 ng/mL (26-388); Glucose 137 mg/dL (74-106); Iron 34 ug/dL (65-175); Iron Binding Capacity,Total 306 ug/dL (250-450); Magnesium 2.1 mg/dL (1.6-2.6); PERCENT IRON SATURATION 11.1 % (15.0-55.0); Potassium 3.6 mmol/L (3.5-5.1); Sodium Level 136 mmol/L (136-145)
[2020-10-18 06:21] LABS: International Normalized Ratio 2.7; Prothrombin Time (Protime)PT. 27.7 SECONDS (11.7-14.9)
[2020-10-18 06:30] LABS: Differential Comment SCANNED
[2020-10-18 06:32] LABS: Acanthocytes RARE; Anisocytosis RARE; Hypochromasia 1+; Microcytosis RARE
[2020-10-18] MEDS: Levothyroxine 50 MCG Tablet PO (06:42)
[2020-10-18 06:51] LABS: Bedside Glucose 141 mg/dL (70-110)
[2020-10-18] MEDS: Ipratropium/Albuterol Sulfate 3 ML AMPUL.NEB INHALATION ×5 (07:00→23:18)
[2020-10-18] MEDS: Midodrine HCl 5 MG Tablet 10 MG PO ×3 (09:33→17:12)
[2020-10-18] MEDS: Amiodarone 200 MG Tablet PO (09:33)
[2020-10-18] MEDS: Glucerna Shake 120 ML LIQUID PO ×2 (09:33→17:13)
[2020-10-18] MEDS: Tamsulosin HCl 0.4 MG Capsule 0.8 MG PO (09:33)
[2020-10-18] MEDS: Metoprolol Tartrate 25 MG Tablet 12.5 MG PO (09:34)
[2020-10-18] MEDS: Finasteride 5 MG Tablet PO (09:35)
[2020-10-18] MEDS: guaiFENesin 1,200 MG Tablet 1200 MG PO ×2 (09:35→22:42)
[2020-10-18] MEDS: Clopidogrel Bisulfate 75 MG Tablet PO (09:38)
[2020-10-18] MEDS: Pantoprazole Sodium 20 MG Tablet PO ×2 (09:38→22:43)
--- NOTE | 2020-10-18 11:10 | PCM.PROGNOTE ---
<RichardCheryl AIR TUBE RELEASER - Last Filed: 10/18/20 11:27> Patient Problems: Active and Suspected Problems Acute blood loss anemia (Acute) Systolic CHF (Acute) Symptomatic anemia (Acute) Congestive heart failure (Acute) Hypotension (Acute) Weakness (Acute) HUONG (acute kidney injury) (Acute) Supratherapeutic INR (Acute) Anticoagulation goal of INR 2.5 to 3.5 (Acute) Subjective: Patient seen and examined. Continues to report improvement in breathing and generalized swelling. No new complaints. - Physical Exam Vitals/I&O's: Vital Signs Temp Pulse Resp BP Pulse Ox 97.5 F L 87 19 H 104/57 L 96 10/18/20 09:28 10/18/20 09:34 10/18/20 09:28 10/18/20 09:28 10/18/20 09:28 Oxygen Flow Rate (L/min) 2 Oxygen Delivery Method Nasal Cannula Weight: 217 lb 2.485 oz Body Mass Index (BMI) 33.0 Finger Stick Blood Glucose 188 Intake and Output for Last 24 Hours 10/16/20 10/17/20 10/18/20 23:59 23:59 23:59 Intake Total 1075.1 / 1075.1 1007.7 / 1007.7 157.3 / 157.3 Output Total 4225 / 4225 2575 / 2575 400 / 400 Balance -3149.9 / -3149.9 -1567.3 / -1567.3 -242.7 / -242.7 General: Alert, Oriented x3, Cooperative HEENT: Atraumatic, PERRLA, EOMI, Normocephalic Neck: Supple, No JVD, Negative Carotid Bruits Lungs: Clear to auscultation, Diminished Cardiovascular: Regular rate, No murmurs Abdomen: Bowel Sounds Present, Soft, Non Tender, Non-Distended Extremities: No clubbing, No cyanosis, Capillary Refill Less than 3 Seconds, Edema - ilateral lower extremities, Antwon wraps in place Skin: No rashes, No breakdown Musculoskeletal: No Tenderness to Palpation of Joints or Extremities Neurological: Cranial nerves II-XII grossly intact, Neuro grossly intact Psych/Mental Status: Normal Affect, Appropriate Laboratory Results 10/15/20 02:30: Eos Smear Total Cells No Eosinophils Seen 10/17/20 12:08: POC Glucose 141 H 10/17/20 17:31: POC Glucose 167 H 10/17/20 21:53: POC Glucose 186 H 10/18/20 05:36: PT 27.7 H, INR 2.7 10/18/20 05:36: WBC 6.0, RBC 3.26 L, Hgb 8.3 L, Hct 27.9 L, MCV 85.6, MCH 25.5 L, MCHC 29.7 L, RDW Std Deviation 62.4 H, RDW Coeff of Yessi 20.7 H, Plt Count 186, MPV 10.3, Immature Gran % (Auto) 0.500, Neut % (Auto) 72.9 H, Lymph % (Auto) 15.0 L, Pettis % (Auto) 10.3 H, Eos % (Auto) 1.0, Baso % (Auto) 0.3, Absolute Neuts (auto) 4.4, Absolute Lymphs (auto) 0.90, Nucleated RBC % 0, Differential Comment SCANNED, Hypochromasia 1+, Anisocytosis RARE, Microcytosis RARE, Acanthocytes (Spur) RARE 10/18/20 05:36: Sodium 136, Potassium 3.6, Chloride 102, Carbon Dioxide 28.0, Anion Gap 6, BUN 75 H, Creatinine 2.35 H, Estim Creat Clear Calc 24.66, Est GFR (MDRD) Af Amer 35 L, Est GFR (MDRD) Non-Af 29 L, BUN/Creatinine Ratio 31.9 H, Glucose 137 H, Calcium 8.5, Magnesium 2.1, Iron 34 L, TIBC 306, Iron Saturation 11.1 L, Ferritin 88 10/18/20 06:40: POC Glucose 141 H Current Medications Acetaminophen (Acetaminophen 325 Mg Tablet) 650 mg PO Q6H PRN PRN PRN Reason: Pain Score 1-10/Temp > 100.7 F Last Admin: 10/15/20 13:04 Dose: 650 mg Documented by: Albuterol Sulfate (Albuterol 2.5 Mg/3 Ml Vial.Neb.) 2.5 mg INHALATION Q2H PRN PRN PRN Reason: SOB/Wheezing Albuterol/Ipratropium (Ipratropium/Albuterol Sulfate 3 Ml Ampul.Neb) 3 ml INHALATION Q4H.RT EDD Last Admin: 10/18/20 07:00 Dose: 3 ml Documented by: Amiodarone HCl ([facility] 200 Mg Tablet) [facility] Last Admin: 10/18/20 09:33 Dose: 200 mg Documented by: Atorvastatin Calcium (Atorvastatin Calcium 80 Mg Tablet) 80 mg PO QHS [facility] Last Admin: 10/17/20 21:58 Dose: 80 mg Documented by: Benzonatate (Benzonatate 100 Mg Capsule) 100 mg PO TID PRN PRN PRN Reason: COUGH Last Admin: 10/15/20 13:04 Dose: 100 mg Documented by: Clopidogrel Bisulfate (Clopidogrel Bisulfate 75 Mg Tablet) 75 mg PO DAILY [facility] Last Admin: 10/18/20 09:38 Dose: 75 mg Documented by: Docusate Sodium (Docusate Sodium 100 Mg Capsule) 100 mg PO BID [facility] Last Admin: 10/18/20 09:34 Dose: Not Given Documented by: Finasteride (Finasteride 5 Mg Tablet) 5 mg PO DAILY [facility] Last Admin: 10/18/20 09:35 Dose: 5 mg Documented by: Guaifenesin (Guaifenesin 1,200 Mg Tablet) 1,200 mg PO BID [facility] Last Admin: 10/18/20 09:35 Dose: 1,200 mg Documented by: Sodium Chloride () 500 mls @ 15 mls/hr IV PRN PRN PRN Reason: Blood Transfusion Sodium Chloride () 250 mls @ 15 mls/hr IV .[id number] PRN PRN Reason: Saline Flush Furosemide 500 mg/ N/A 50 mls @ 3 mls/hr CONT INF .[id number] [facility] Last Admin: 10/18/20 02:45 Dose: 30 mg/hr, 3 mls/hr Documented by: Insulin Glargine (Insulin [facility] 100 Units/[facility]l [facility]) [facility] Last Admin: 10/17/20 21:58 Dose: 22 u Documented by: Insulin Human Lispro (Insulin Lispro 100 Unit/Ml Insuln.Pen) 0 unit SC [facility]; Protocol Last Admin: 10/18/20 06:43 Dose: Not Given Documented by: Levothyroxine Sodium (Levothyroxine 50 Mcg Tablet) 50 mcg PO DAILY@0600 [facility] Last Admin: 10/18/20 06:42 Dose: 50 mcg Documented by: Melatonin (Melatonin 10 Mg Tablet) 5 mg PO QHS PRN PRN Reason: SLEEP Last Admin: 10/14/20 01:15 Dose: 5 mg Documented by: Metoprolol Tartrate (Metoprolol Tartrate 25 Mg Tablet) 12.5 mg PO BID [facility] Last Admin: 10/18/20 09:34 Dose: 12.5 mg Documented by: Midodrine (Midodrine Hcl 5 Mg Tablet) 10 mg PO TIDCM [facility] Last Admin: 10/18/20 09:33 Dose: 10 mg Documented by: Nutritional Formula (Lactose Free) (Glucerna Shake 120 Ml Liquid) 120 ml PO TIDCM [facility] Last Admin: 10/18/20 09:33 Dose: 120 ml Documented by: Ondansetron HCl (Ondansetron 4 Mg/2 Ml Vial) 4 mg IV Q8H PRN PRN PRN Reason: NAUSEA/VOMITING Last Admin: 10/14/20 01:15 Dose: 4 mg Documented by: Pantoprazole Sodium (Pantoprazole Sodium 20 Mg Tablet) 20 mg PO BID [facility] Last Admin: 10/18/20 09:38 Dose: 20 mg Documented by: Senna (Senna Tablet) 1 tablet PO DAILY [facility] Last Admin: 10/18/20 09:36 Dose: Not Given Documented by: Sodium Chloride (0.9% Saline Lock 10 Ml Syringe) 10 - 40 ml IV UD PRN PRN Reason: SALINE FLUSH Last Admin: 10/15/20 08:57 Dose: 20 ml Documented by: Tamsulosin HCl (Tamsulosin Hcl 0.4 Mg Capsule) 0.8 mg PO DAILY@0830 [facility] Last Admin: 10/18/20 09:33 Dose: 0.8 mg Documented by: Warfarin Sodium 1 mg/ Warfarin (Sodium 0.5 mg) 1.5 mg PO DAILY@1700 [facility] Last Admin: 10/17/20 17:36 Dose: 1.5 mg Documented by: Medical Necessity - Tobacco Use Smoking Status: Former smoker Assessment/Plan All Active Problems Acute blood loss anemia (Acute) Systolic CHF (Acute) Symptomatic anemia (Acute) Congestive heart failure (Acute) Hypotension (Acute) Weakness (Acute) HUONG (acute kidney injury) (Acute) Hyperkalemia (Acute) GI bleed (Resolved) Supratherapeutic INR (Acute) Gross hematuria (Acute) Anticoagulation goal of INR 2.5 to 3.5 (Acute) Facial droop (Resolved) 1. Acute blood loss anemia secondary to GI bleed-Coumadin held on admission. Stool positive for occult blood. Status post 3 units PRBC. Plavix on hold. Continue PPI. Trend CBC. Remains stable. 2. Supratherapeutic INR-resolved following reversal. Coumadin resumed at lower dose. Trend INR. 3. Hypotension-stable. Initiated on midodrine. 4. Acute kidney injury on chronic kidney disease stage III-nephrology consulted. Suspect cardiorenal syndrome. Lasix drip. Renal ultrasound normal. Trend BMP. Creatinine improving with Lasix drip. 5. Anasarca-IV Lasix drip. Antwon wraps bilateral lower extremities. 6. Permanent atrial fibrillation on chronic anticoagulation with Coumadin 7. History of mechanical aortic valve 8. Acute on chronic heart failure with reduced ejection fraction/ischemic cardiomyopathy-EF 30%. IV Lasix as noted above. 9. Chronic COPD-as needed albuterol aerosol. 10. EMERY- continue home pap regimen. 11. CAD-continue statin. Plavix on hold. Resume low-dose metoprolol with hold parameters. 12. Type 2 diabetes [id number]-[id number] with sliding scale insulin. Continue home insulin regimen. 13. Hypothyroidism-continue Synthroid. 14. GERD-continue PPI. 15. BPH-on Flomax. 16. Schizoaffective disorder-continue home medication regimen. DVT prophylaxis-Coumadin This patient was seen by BENEDICT Morocho under the supervision of Dr. Frye. <Bharti Frye - Last Filed: 10/18/20 11:42> Subjective: I agree with the above and the following is a reflection of my independent history and physical examination. The patient notes continued improvements in his breathing and remains on anywhere from 0 to 2 L nasal cannula. He does have oxygen desaturation with sleeping and I do suspect he may have some sleep apnea. He also has noted that his edema has improved. He did refuse to get out of bed for physical therapy yesterday and I did impress upon him the importance of continued mobility as he does desire to eventually be able to go back home. - Physical Exam Vitals/I&O's: Vital Signs Temp Pulse Resp BP Pulse Ox 97.5 F L 87 19 H 104/57 L 96 10/18/20 09:28 10/18/20 09:34 10/18/20 09:28 10/18/20 09:28 10/18/20 09:28 Oxygen Flow Rate (L/min) 2 Oxygen Delivery Method Nasal Cannula Weight: 98.5 kg Body Mass Index (BMI) 33.0 Finger Stick Blood Glucose 188 Intake and Output for Last 24 Hours 10/16/20 10/17/20 10/18/20 23:59 23:59 23:59 Intake Total 1075.1 / 1075.1 1007.7 / 1007.7 157.3 / 157.3 Output Total 4225 / 4225 2575 / 2575 400 / 400 Balance -3149.9 / -3149.9 -1567.3 / -1567.3 -242.7 / -242.7 General: Alert, Oriented x3, Cooperative, No apparent distress, Well developed, Well nourished, - - Older white male lying in bed who appears older than stated age, half sleeping half watching television, nontoxic-appearing HEENT: Atraumatic, PERRLA, EOMI, Normocephalic Oral: Moist Mucosa, No Gingival or Mucosal Lesions/ Ulcerations, - - Dentures in place Neck: Supple, No JVD, Negative Carotid Bruits, Negative Hepatojugular Reflux Lungs: No wheeze, No rales, Diminished - Diffusely, Rhonchi - Few scattered but do improve with cough although cough is weak Cardiovascular: Regular rate, Normal S1, Normal S2, Murmur, No rub noted, No Gallop, - - Irregular rhythm Abdomen: Bowel Sounds Present, Soft, Non Tender, Non-Distended, Obese, No hernias noted Extremities: No clubbing, No cyanosis, Capillary Refill Less than 3 Seconds, Edema - Bilateral lower extremity edema that is now 1-2+, upper extremity edema has resolved, edema is pitting in nature, Peripheral Pulses Normal Skin: No rashes, No breakdown, - - Scattered ecchymosis suspect this is related to severely elevated INR on admission Musculoskeletal: Arthritic Changes, Muscle Wasting Lymphatic: No Cervical, Supraclavicular, or Inguinal Adenopathy Neurological: Cranial nerves II-XII grossly intact, Neuro grossly intact, Muscle tone normal, Coordination normal Psych/Mental Status: Appropriate, Flat Affect Laboratory Results 10/15/20 02:30: Eos Smear Total Cells No Eosinophils Seen 10/17/20 12:08: POC Glucose 141 H 10/17/20 17:31: POC Glucose 167 H 10/17/20 21:53: POC Glucose 186 H 10/18/20 05:36: PT 27.7 H, INR 2.7 10/18/20 05:36: WBC 6.0, RBC 3.26 L, Hgb 8.3 L, Hct 27.9 L, MCV 85.6, MCH 25.5 L, MCHC 29.7 L, RDW Std Deviation 62.4 H, RDW Coeff of Yessi 20.7 H, Plt Count 186, MPV 10.3, Immature Gran % (Auto) 0.500, Neut % (Auto) 72.9 H, Lymph % (Auto) 15.0 L, Pettis % (Auto) 10.3 H, Eos % (Auto) 1.0, Baso % (Auto) 0.3, Absolute Neuts (auto) 4.4, Absolute Lymphs (auto) 0.90, Nucleated RBC % 0, Differential Comment SCANNED, Hypochromasia 1+, Anisocytosis RARE, Microcytosis RARE, Acanthocytes (Spur) RARE 10/18/20 05:36: Sodium 136, Potassium 3.6, Chloride 102, Carbon Dioxide 28.0, Anion Gap 6, BUN 75 H, Creatinine 2.35 H, Estim Creat Clear Calc 24.66, Est GFR (MDRD) Af Amer 35 L, Est GFR (MDRD) Non-Af 29 L, BUN/Creatinine Ratio 31.9 H, Glucose 137 H, Calcium 8.5, Magnesium 2.1, Iron 34 L, TIBC 306, Iron Saturation 11.1 L, Ferritin 88 10/18/20 06:40: POC Glucose 141 H Current Medications Acetaminophen (Acetaminophen 325 Mg Tablet) 650 mg PO Q6H PRN PRN PRN Reason: Pain Score 1-10/Temp > 100.7 F Last Admin: 10/15/20 13:04 Dose: 650 mg Documented by: Albuterol Sulfate (Albuterol 2.5 Mg/3 Ml Vial.Neb.) 2.5 mg INHALATION Q2H PRN PRN PRN Reason: SOB/Wheezing Albuterol/Ipratropium (Ipratropium/Albuterol Sulfate 3 Ml Ampul.Neb) 3 ml INHALATION Q4H.RT EDD Last Admin: 10/18/20 11:19 Dose: 3 ml Documented by: Amiodarone HCl ([facility] 200 Mg Tablet) [facility] Last Admin: 10/18/20 09:33 Dose: 200 mg Documented by: Atorvastatin Calcium (Atorvastatin Calcium 80 Mg Tablet) 80 mg PO QHS [facility] Last Admin: 10/17/20 21:58 Dose: 80 mg Documented by: Benzonatate (Benzonatate 100 Mg Capsule) 100 mg PO TID PRN PRN PRN Reason: COUGH Last Admin: 10/15/20 13:04 Dose: 100 mg Documented by: Clopidogrel Bisulfate (Clopidogrel Bisulfate 75 Mg Tablet) 75 mg PO DAILY [facility] Last Admin: 10/18/20 09:38 Dose: 75 mg Documented by: Docusate Sodium (Docusate Sodium 100 Mg Capsule) 100 mg PO BID [facility] Last Admin: 10/18/20 09:34 Dose: Not Given Documented by: Finasteride (Finasteride 5 Mg Tablet) 5 mg PO DAILY [facility] Last Admin: 10/18/20 09:35 Dose: 5 mg Documented by: Guaifenesin (Guaifenesin 1,200 Mg Tablet) 1,200 mg PO BID [facility] Last Admin: 10/18/20 09:35 Dose: 1,200 mg Documented by: Sodium Chloride () 500 mls @ 15 mls/hr IV PRN PRN PRN Reason: Blood Transfusion Sodium Chloride () 250 mls @ 15 mls/hr IV .[id number] PRN PRN Reason: Saline Flush Furosemide 500 mg/ N/A 50 mls @ 3 mls/hr CONT INF .[id number] [facility] Last Admin: 10/18/20 02:45 Dose: 30 mg/hr, 3 mls/hr Documented by: Insulin Glargine (Insulin Glargine 100 Units/Ml Pen) [facility] Last Admin: 10/17/20 21:58 Dose: 22 u Documented by: Insulin Human Lispro (Insulin Lispro 100 Unit/Ml Insuln.Pen) 0 unit SC [facility]; Protocol Last Admin: 10/18/20 06:43 Dose: Not Given Documented by: Levothyroxine Sodium (Levothyroxine 50 Mcg Tablet) 50 mcg PO DAILY@0600 [facility] Last Admin: 10/18/20 06:42 Dose: 50 mcg Documented by: Melatonin (Melatonin 10 Mg Tablet) 5 mg PO QHS PRN PRN Reason: SLEEP Last Admin: 10/14/20 01:15 Dose: 5 mg Documented by: Metoprolol Tartrate (Metoprolol Tartrate 25 Mg Tablet) 12.5 mg PO BID [facility] Last Admin: 10/18/20 09:34 Dose: 12.5 mg Documented by: Midodrine (Midodrine Hcl 5 Mg Tablet) 10 mg PO TIDCM [facility] Last Admin: 10/18/20 09:33 Dose: 10 mg Documented by: Nutritional Formula (Lactose Free) (Glucerna Shake 120 Ml Liquid) 120 ml PO TIDCM [facility] Last Admin: 10/18/20 09:33 Dose: 120 ml Documented by: Ondansetron HCl (Ondansetron 4 Mg/2 Ml Vial) 4 mg IV Q8H PRN PRN PRN Reason: NAUSEA/VOMITING Last Admin: 10/14/20 01:15 Dose: 4 mg Documented by: Pantoprazole Sodium (Pantoprazole Sodium 20 Mg Tablet) 20 mg PO BID [facility] Last Admin: 10/18/20 09:38 Dose: 20 mg Documented by: Senna (Senna Tablet) 1 tablet PO DAILY [facility] Last Admin: 10/18/20 09:36 Dose: Not Given Documented by: Sodium Chloride (0.9% Saline Lock 10 Ml Syringe) 10 - 40 ml IV UD PRN PRN Reason: SALINE FLUSH Last Admin: 10/15/20 08:57 Dose: 20 ml Documented by: Tamsulosin HCl (Tamsulosin Hcl 0.4 Mg Capsule) 0.8 mg PO DAILY@0830 [facility] Last Admin: 10/18/20 09:33 Dose: 0.8 mg Documented by: Warfarin Sodium (Warfarin 1 Mg Tablet) 1 mg PO DAILY@1700 [facility] Assessment/Plan ASSESSMENT Acute blood loss anemia Hypotension-resolved with midodrine GI bleeding-resolved CKD stage IIIb-resolved HUONG Hyperkalemia-resolved Mild hyperbilirubinemia Supratherapeutic INR-resolved Anasarca Chronic anticoagulation Permanent atrial fibrillation Mechanical aortic valve HFrEF (EF 30%) secondary to ischemic cardiomyopathy--> decompensated Hyperlipidemia COPD EMERY CAD DM-2 Hypothyroidism GERD Constipation BPH History of hematuria Schizoaffective disorder Hyponatremia PLAN -Patient was transfused a total of 3 units of packed red blood cells on 10/13/2020 -Hemoglobin remains stable at 8.3 -Continue Coumadin at 1.5mg daily -This was decreased from 2 mg to 1.5 mg on 10/17/2020 due to rapid rise in INR -A.M. INR was 2.7 from 2.5 yesterday -Continue midodrine 10 mg 3 times daily help support blood pressure with Lasix drip -Blood pressure remains stable and is allowing for diuresis -Discontinue Lasix drip and start Lasix 40 mg IV push 3 times daily -For to p.o. Lasix when able -Chest x-ray appears about the same -Patient remains on room air to 1 L nasal cannula with stable oxygen saturations on 1 L nasal cannula between 93 and 95% -He had been on room air but desaturated to 89% and therefore was replaced to 1 L -Sodium remains stable -Serum creatinine continues to improve and today is 2.35 --> and is now in baseline range of 2-2.6 -Nephrology is following--> appreciate input -HUONG has resolved -No hemoglobin drop with the reinitiation of Plavix -will continue -Iron studies do not appear consistent with iron deficiency although patient was just transfused 3 units of packed red blood cells so these could be artificially skewed with recent transfusion -Need repeat iron studies in the future -Believe at this time the patient is excepting the severity of his illness as he keeps focus on ongoing home and being able to walk out of here rather than going back to a nursing facility for continued care. The likelihood of him being able to go back home ever I suspect is quite negligible. I did attempt to have a further conversation relating to the severity of his illness but he perseverates on getting an ICD despite me telling him this will not make him get better. Inpatient E&M: 60360 Subs Hosp L3
[2020-10-18 11:55] LABS: Bedside Glucose 132 mg/dL (70-110)
[2020-10-18] MEDS: Furosemide 40 MG/4 ML Vial IV ×2 (14:42→22:38)
[2020-10-18 17:36] LABS: Bedside Glucose 155 mg/dL (70-110)
[2020-10-18] MEDS: Insulin Lispro 100 UNIT/ML INSULN.PEN SC (22:39)
[2020-10-18] MEDS: Atorvastatin Calcium 80 MG Tablet PO (22:42)
[2020-10-18 22:55] LABS: Bedside Glucose 170 mg/dL (70-110)
[2020-10-19] VITALS (24 sets, daily range): BP systolic 84–145; BP diastolic 55–125; PULSE 64–103; RESP 16–29; TEMP 36.4–36.8; O2SAT 95–100
[2020-10-19 05:23] LABS: Hematocrit 28.5 % (40-54); Hemoglobin 8.3 g/dL (13.0-16.5); Mean Corp Hgb Conc 29.1 g/dL (32-36); Mean Corpuscular Hgb 25.1 pg (27.0-32.0); Mean Corpuscular Volume 86.1 fL (80-94); Mean Platelet Vol. 9.6 fl (6.2-12.0); POSITIVE MORPHOLOGY YES; Platelet Count 168 K/mm3 (150-450); RBC Distribution Width CV 20.9 % (11.6-14.6); RBC Distribution Width SD 63.8 fl (35.1-43.9); Red Blood Count 3.31 M/mm3 (4.6-6.2); Scan Indicated on CBC? Y/N YES- FLAGS NOTED; White Blood Count 6.3 K/mm3 (4.4-11.0)
[2020-10-19 05:33] LABS: International Normalized Ratio 2.9; Prothrombin Time (Protime)PT. 29.8 SECONDS (11.7-14.9)
[2020-10-19] MEDS: Furosemide 40 MG/4 ML Vial IV ×3 (05:34→21:11)
[2020-10-19] MEDS: Levothyroxine 50 MCG Tablet PO (05:34)
[2020-10-19 05:39] LABS: Anion Gap 6 (5-15); BUN 70 mg/dL (7-18); BUN/Creat Ratio 31.2 RATIO (10-20); Calcium,Total 8.5 mg/dL (8.5-10.1); Chloride 101 mmol/L (98-107); Creatinine, Serum 2.24 mg/dL (0.70-1.30); EST Glomerular Filtration Rate 30 mL/min (>60); Est Glom Filt Rate - Afr Amer 37 mL/min (>60); Estimated Creatinine Clearance 25.87 ml/min; Glucose 117 mg/dL (74-106); Potassium 3.4 mmol/L (3.5-5.1); Sodium Level 136 mmol/L (136-145)
[2020-10-19 06:21] LABS: Bedside Glucose 120 mg/dL (70-110)
[2020-10-19] MEDS: Ipratropium/Albuterol Sulfate 3 ML AMPUL.NEB INHALATION ×4 (07:06→23:12)
--- NOTE | 2020-10-19 08:56 | CASEMGMT ---
DARRON met with patient per his request. He asked if SW could be his case management specialist. DARRON told him that while he is here in the hospital SW will be his Software Release Engineer, but once he leaves SW will not be working with him. DARRON asked if he meant a case management specialist like his Passport CHERRY Leslie. He said he wants to get rid of her. He said, She had no business sending him to [facility]. DARRON told him that was not Mariama. DARRON told him he went to the hospital at [facility] and they sent him to [facility]. DARRON then told patient we are getting closer to it being time for discharge. He said that is what the doctor told him. DARRON told him DARRON can help him pick another facility that could take care of him for a little while longer. He said he is going home. DARRON told him it is not a good idea to go home and he said he has nurses and aides that come out. DARRON will look at therapy notes today, but it does not look like patient should go home looking at previous notes. Naomi RAMIREZ
[2020-10-19] MEDS: Midodrine HCl 5 MG Tablet 10 MG PO ×3 (10:09→16:20)
[2020-10-19] MEDS: Metoprolol Tartrate 25 MG Tablet 12.5 MG PO (10:10)
[2020-10-19] MEDS: Tamsulosin HCl 0.4 MG Capsule 0.8 MG PO (10:11)
[2020-10-19] MEDS: guaiFENesin 1,200 MG Tablet 1200 MG PO ×2 (10:11→21:10)
[2020-10-19] MEDS: Pantoprazole Sodium 20 MG Tablet PO ×2 (10:12→21:10)
[2020-10-19] MEDS: Clopidogrel Bisulfate 75 MG Tablet PO (10:12)
[2020-10-19] MEDS: Glucerna Shake 120 ML LIQUID PO ×3 (10:13→16:18)
[2020-10-19] MEDS: Finasteride 5 MG Tablet PO (10:13)
[2020-10-19] MEDS: Potassium Chloride Oral Tablet 20 MEQ 40 MEQ PO (10:16)
[2020-10-19] MEDS: Amiodarone 200 MG Tablet PO (10:17)
--- NOTE | 2020-10-19 10:46 | CASEMGMT ---
Nurse Practitioner, Cheryl spoke with patient and he agreed to go to a SNF, just not back to [facility]. SW met with patient and went over the list of SNF's that are in network with his insurance. The list of SNF's also included quality and resource use data and was consistent with the patient?s preferred geographic region, medical needs, and insurance network. He wanted to stay in [place]. SW went over the ones that were in [place] including [facility], [place], and [facility]. Patient said no to [place]. He was okay with SW sending referrals to both facilities. SW called [facility] and left a message for Jackie letting her know patient is not going to be returning there at discharge. Naomi Bernard GANG DRILL PRESS OPERATOR ASHLEY
--- NOTE | 2020-10-19 10:47 | CASEMGMT ---
Addendum entered by Rukhsana Rodrigues 10/19/20 11:04: SW called Maureen at [facility], explained pt has decided to not return there. SW inquired if they have a PAS/RR or hospital exemption on file. They have a PAS/RR and she will fax it over. ALEK Hinds Original Note: SW called both [facility] and [facility], faxed referral both places. As per Milagro at [facility], they need precert. As per Krissy at [facility], they do not. Both facilities to call back to let SW know if they can take pt. SW will continue to follow. ALEK Hinds
--- NOTE | 2020-10-19 11:00 | CASEMGMT ---
DARRON received a call from [facility] and they can accept patient if he chooses them. DARRON told her SW will let her know. Naomi RAMIREZ
[2020-10-19 11:46] LABS: Bedside Glucose 139 mg/dL (70-110)
--- NOTE | 2020-10-19 12:00 | PCM.PROGNOTE ---
<Elpidio Ramosssica ELECTRICAL MANAGER - Last Filed: 10/19/20 12:17> Patient Problems: Active and Suspected Problems Acute blood loss anemia (Acute) Systolic CHF (Acute) Symptomatic anemia (Acute) Congestive heart failure (Acute) Hypotension (Acute) Weakness (Acute) HUONG (acute kidney injury) (Acute) Supratherapeutic INR (Acute) Anticoagulation goal of INR 2.5 to 3.5 (Acute) Subjective: Patient seen and examined. No acute events overnight. Continues to have significant diuresis. Reports continued improvement in swelling and shortness of breath. Amenable to SNF at discharge. - Physical Exam Vitals/I&O's: Vital Signs Temp Pulse Resp BP Pulse Ox 97.8 F 83 16 103/70 95 10/19/20 11:00 10/19/20 11:10 10/19/20 11:10 10/19/20 11:00 10/19/20 11:00 Oxygen Flow Rate (L/min) 2 Oxygen Delivery Method Nasal Cannula Weight: 210 lb 8.663 oz Body Mass Index (BMI) 33.0 Finger Stick Blood Glucose 188 Intake and Output for Last 24 Hours 10/17/20 10/18/20 10/19/20 23:59 23:59 23:59 Intake Total 1007.7 / 1007.7 305.25 / 305.25 360 / 360 Output Total 2575 / 2575 1225 / 1225 575 / 575 Balance -1567.3 / -1567.3 -919.75 / -919.75 -215 / -215 General: Alert, Oriented x3, Cooperative HEENT: Atraumatic, PERRLA, EOMI, Normocephalic Neck: Supple, No JVD, Negative Carotid Bruits Lungs: Clear to auscultation, Diminished Cardiovascular: Regular rate, No murmurs Abdomen: Bowel Sounds Present, Soft, Non Tender, Non-Distended Extremities: No clubbing, No cyanosis, Edema - +3 bilateral lower extremities Skin: No rashes, No breakdown Musculoskeletal: No Tenderness to Palpation of Joints or Extremities Neurological: Cranial nerves II-XII grossly intact, Neuro grossly intact Psych/Mental Status: Flat Affect Laboratory Results 10/18/20 17:09: POC Glucose 155 H 10/18/20 22:33: POC Glucose 170 H 10/19/20 05:12: PT 29.8 H, INR 2.9 10/19/20 05:12: WBC 6.3, RBC 3.31 L, Hgb 8.3 L, Hct 28.5 L, MCV 86.1, MCH 25.1 L, MCHC 29.1 L, RDW Std Deviation 63.8 H, RDW Coeff of Yessi 20.9 H, Plt Count 168, MPV 9.6 10/19/20 05:12: Sodium 136, Potassium 3.4 L, Chloride 101, Carbon Dioxide 29.0, Anion Gap 6, BUN 70 H, Creatinine 2.24 H, Estim Creat Clear Calc 25.87, Est GFR (MDRD) Af Amer 37 L, Est GFR (MDRD) Non-Af 30 L, BUN/Creatinine Ratio 31.2 H, Glucose 117 H, Calcium 8.5 10/19/20 06:14: POC Glucose 120 H 10/19/20 11:37: POC Glucose 139 H Current Medications Acetaminophen (Acetaminophen 325 Mg Tablet) 650 mg PO Q6H PRN PRN PRN Reason: Pain Score 1-10/Temp > 100.7 F Last Admin: 10/15/20 13:04 Dose: 650 mg Documented by: Albuterol Sulfate (Albuterol 2.5 Mg/3 Ml Vial.Neb.) 2.5 mg INHALATION Q2H PRN PRN PRN Reason: SOB/Wheezing Albuterol/Ipratropium (Ipratropium/Albuterol Sulfate 3 Ml Ampul.Neb) 3 ml INHALATION Q4H.RT [facility] Last Admin: 10/19/20 11:10 Dose: 3 ml Documented by: Amiodarone HCl (Amiodarone 200 Mg Tablet) [facility] Last Admin: 10/19/20 10:17 Dose: 200 mg Documented by: Atorvastatin Calcium (Atorvastatin Calcium 80 Mg Tablet) 80 mg PO QHS [facility] Last Admin: 10/18/20 22:42 Dose: 80 mg Documented by: Benzonatate (Benzonatate 100 Mg Capsule) 100 mg PO TID PRN PRN PRN Reason: COUGH Last Admin: 10/15/20 13:04 Dose: 100 mg Documented by: Clopidogrel Bisulfate (Clopidogrel Bisulfate 75 Mg Tablet) 75 mg PO DAILY [facility] Last Admin: 10/19/20 10:12 Dose: 75 mg Documented by: Docusate Sodium (Docusate Sodium 100 Mg Capsule) 100 mg PO BID [facility] Last Admin: 10/19/20 10:13 Dose: Not Given Documented by: Finasteride (Finasteride 5 Mg Tablet) 5 mg PO DAILY [facility] Last Admin: 10/19/20 10:13 Dose: 5 mg Documented by: Furosemide (Furosemide 40 Mg/4 Ml Vial) 40 mg IV Q8 [facility] Last Admin: 10/19/20 05:34 Dose: 40 mg Documented by: Guaifenesin (Guaifenesin 1,200 Mg Tablet) 1,200 mg PO BID [facility] Last Admin: 10/19/20 10:11 Dose: 1,200 mg Documented by: Sodium Chloride () 500 mls @ 15 mls/hr IV PRN PRN PRN Reason: Blood Transfusion Sodium Chloride () 250 mls @ 15 mls/hr IV .[id number] PRN PRN Reason: Saline Flush Insulin Glargine (Insulin Glargine 100 Units/Ml Pen) 22 units SC QHS [facility] Last Admin: 10/18/20 22:38 Dose: 22 u Documented by: Insulin Human Lispro (Insulin Lispro 100 Unit/Ml Insuln.Pen) 0 unit SC [facility]; Protocol Last Admin: 10/19/20 11:38 Dose: Not Given Documented by: Levothyroxine Sodium (Levothyroxine 50 Mcg Tablet) 50 mcg PO DAILY@0600 [facility] Last Admin: 10/19/20 05:34 Dose: 50 mcg Documented by: Melatonin (Melatonin 10 Mg Tablet) 5 mg PO QHS PRN PRN Reason: SLEEP Last Admin: 10/14/20 01:15 Dose: 5 mg Documented by: Metoprolol Tartrate (Metoprolol Tartrate 25 Mg Tablet) 12.5 mg PO BID [facility] Last Admin: 10/19/20 10:10 Dose: 12.5 mg Documented by: Midodrine (Midodrine Hcl 5 Mg Tablet) 10 mg PO TIDCM [facility] Last Admin: 10/19/20 11:39 Dose: 10 mg Documented by: Nutritional Formula (Lactose Free) (Glucerna Shake 120 Ml Liquid) 120 ml PO TIDCM [facility] Last Admin: 10/19/20 11:38 Dose: 120 ml Documented by: Ondansetron HCl (Ondansetron 4 Mg/2 Ml Vial) 4 mg IV Q8H PRN PRN PRN Reason: NAUSEA/VOMITING Last Admin: 10/14/20 01:15 Dose: 4 mg Documented by: Pantoprazole Sodium (Pantoprazole Sodium 20 Mg Tablet) 20 mg PO BID [facility] Last Admin: 10/19/20 10:12 Dose: 20 mg Documented by: Senna (Senna Tablet) 1 tablet PO DAILY [facility] Last Admin: 10/19/20 10:14 Dose: Not Given Documented by: Sodium Chloride (0.9% Saline Lock 10 Ml Syringe) 10 - 40 ml IV UD PRN PRN Reason: SALINE FLUSH Last Admin: 10/15/20 08:57 Dose: 20 ml Documented by: Tamsulosin HCl (Tamsulosin Hcl 0.4 Mg Capsule) 0.8 mg PO DAILY@0830 [facility] Last Admin: 10/19/20 10:11 Dose: 0.8 mg Documented by: Warfarin Sodium (Warfarin 1 Mg Tablet) 1 mg PO DAILY@1700 [facility] Last Admin: 10/18/20 17:13 Dose: 1 mg Documented by: Medical Necessity - Tobacco Use Smoking Status: Former smoker Assessment/Plan All Active Problems Acute blood loss anemia (Acute) Systolic CHF (Acute) Symptomatic anemia (Acute) Congestive heart failure (Acute) Hypotension (Acute) Weakness (Acute) HUONG (acute kidney injury) (Acute) Hyperkalemia (Acute) GI bleed (Resolved) Supratherapeutic INR (Acute) Gross hematuria (Acute) Anticoagulation goal of INR 2.5 to 3.5 (Acute) Facial droop (Resolved) 1. Acute kidney injury on chronic kidney disease stage III-nephrology consulted. Suspect cardiorenal syndrome. Continue Lasix drip. Renal ultrasound normal. Trend BMP. Creatinine improving with Lasix drip. 2. Acute blood loss anemia secondary to GI bleed- Stool positive for occult blood. Status post 3 units PRBC. Continue PPI. Trend CBC. Remains stable. Coumadin and Plavix resumed. 3. Supratherapeutic INR-resolved following reversal. Coumadin resumed at lower dose. Trend INR. 4. Hypotension-stable. Initiated on midodrine. 5. Acute on chronic heart failure with reduced ejection fraction/ischemic cardiomyopathy, associated anasarca-EF 30%. IV Lasix as noted above. 6. Permanent atrial fibrillation on chronic anticoagulation with Coumadin 7. History of mechanical aortic valve 8. Chronic COPD-as needed albuterol aerosol. 9. EMERY- continue home pap regimen. 10. CAD-continue statin, Plavix. Resume low-dose metoprolol with hold parameters. 11. Type 2 diabetes artyiazo-[id number] with sliding scale insulin. Continue home insulin regimen. 12. Hypothyroidism-continue Synthroid. 13. GERD-continue PPI. 14. BPH-on Flomax. 15. Schizoaffective disorder-continue home medication regimen. DVT prophylaxis-Coumadin Discharge planning: SNF when medically stable. Palliative will follow at discharge. This patient was seen by BENEDICT Morocho under the supervision of Dr. Wei. <Marino Wei - Last Filed: 10/19/20 12:54> - Physical Exam Vitals/I&O's: Vital Signs Temp Pulse Resp BP Pulse Ox 36.7 C 82 25 H 92/67 98 10/19/20 12:00 10/19/20 12:00 10/19/20 12:00 10/19/20 12:00 10/19/20 12:00 Oxygen Flow Rate (L/min) 2 Oxygen Delivery Method Nasal Cannula Weight: 95.5 kg Body Mass Index (BMI) 33.0 Finger Stick Blood Glucose 188 Intake and Output for Last 24 Hours 10/17/20 10/18/20 10/19/20 23:59 23:59 23:59 Intake Total 1007.7 / 1007.7 305.25 / 305.25 360 / 360 Output Total 2575 / 2575 1225 / 1225 575 / 575 Balance -1567.3 / -1567.3 -919.75 / -919.75 -215 / -215 General: Alert, Cooperative HEENT: Atraumatic, Normocephalic Lungs: Clear to auscultation, Diminished Cardiovascular: Regular rate, No murmurs Abdomen: Bowel Sounds Present, Soft, Non Tender, Non-Distended Extremities: No clubbing, No cyanosis, Edema Skin: No rashes, No breakdown Musculoskeletal: No Tenderness to Palpation of Joints or Extremities Neurological: Cranial nerves II-XII grossly intact, Neuro grossly intact Laboratory Results 10/18/20 17:09: POC Glucose 155 H 10/18/20 22:33: POC Glucose 170 H 10/19/20 05:12: PT 29.8 H, INR 2.9 10/19/20 05:12: WBC 6.3, RBC 3.31 L, Hgb 8.3 L, Hct 28.5 L, MCV 86.1, MCH 25.1 L, MCHC 29.1 L, RDW Std Deviation 63.8 H, RDW Coeff of Yessi 20.9 H, Plt Count 168, MPV 9.6 10/19/20 05:12: Sodium 136, Potassium 3.4 L, Chloride 101, Carbon Dioxide 29.0, Anion Gap 6, BUN 70 H, Creatinine 2.24 H, Estim Creat Clear Calc 25.87, Est GFR (MDRD) Af Amer 37 L, Est GFR (MDRD) Non-Af 30 L, BUN/Creatinine Ratio 31.2 H, Glucose 117 H, Calcium 8.5 10/19/20 06:14: POC Glucose 120 H 10/19/20 11:37: POC Glucose 139 H Current Medications Acetaminophen (Acetaminophen 325 Mg Tablet) 650 mg PO Q6H PRN PRN PRN Reason: Pain Score 1-10/Temp > 100.7 F Last Admin: 10/15/20 13:04 Dose: 650 mg Documented by: Albuterol Sulfate (Albuterol 2.5 Mg/3 Ml Vial.Neb.) 2.5 mg INHALATION Q2H PRN PRN PRN Reason: SOB/Wheezing Albuterol/Ipratropium (Ipratropium/Albuterol Sulfate 3 Ml Ampul.Neb) 3 ml INHALATION Q4H.RT [facility] Last Admin: 10/19/20 11:10 Dose: 3 ml Documented by: Amiodarone HCl (Amiodarone 200 Mg Tablet) [facility] Last Admin: 10/19/20 10:17 Dose: 200 mg Documented by: Atorvastatin Calcium (Atorvastatin Calcium 80 Mg Tablet) 80 mg PO QHS [facility] Last Admin: 10/18/20 22:42 Dose: 80 mg Documented by: Benzonatate (Benzonatate 100 Mg Capsule) 100 mg PO TID PRN PRN PRN Reason: COUGH Last Admin: 10/15/20 13:04 Dose: 100 mg Documented by: Clopidogrel Bisulfate (Clopidogrel Bisulfate 75 Mg Tablet) 75 mg PO DAILY [facility] Last Admin: 10/19/20 10:12 Dose: 75 mg Documented by: Docusate Sodium (Docusate Sodium 100 Mg Capsule) 100 mg PO BID [facility] Last Admin: 10/19/20 10:13 Dose: Not Given Documented by: Finasteride (Finasteride 5 Mg Tablet) 5 mg PO DAILY [facility] Last Admin: 10/19/20 10:13 Dose: 5 mg Documented by: Furosemide (Furosemide 40 Mg/4 Ml Vial) 40 mg IV Q8 [facility] Last Admin: 10/19/20 05:34 Dose: 40 mg Documented by: Guaifenesin (Guaifenesin 1,200 Mg Tablet) 1,200 mg PO BID [facility] Last Admin: 10/19/20 10:11 Dose: 1,200 mg Documented by: Sodium Chloride () 500 mls @ 15 mls/hr IV PRN PRN PRN Reason: Blood Transfusion Sodium Chloride () 250 mls @ 15 mls/hr IV .[id number] PRN PRN Reason: Saline Flush Insulin Glargine (Insulin Glargine 100 Units/Ml Pen) 22 units SC QHS [facility] Last Admin: 10/18/20 22:38 Dose: 22 u Documented by: Insulin Human Lispro (Insulin Lispro 100 Unit/Ml Insuln.Pen) 0 unit SC [facility]; Protocol Last Admin: 10/19/20 11:38 Dose: Not Given Documented by: Levothyroxine Sodium (Levothyroxine 50 Mcg Tablet) 50 mcg PO DAILY@0600 [facility] Last Admin: 10/19/20 05:34 Dose: 50 mcg Documented by: Melatonin (Melatonin 10 Mg Tablet) 5 mg PO QHS PRN PRN Reason: SLEEP Last Admin: 10/14/20 01:15 Dose: 5 mg Documented by: Metoprolol Tartrate (Metoprolol Tartrate 25 Mg Tablet) 12.5 mg PO BID [facility] Last Admin: 10/19/20 10:10 Dose: 12.5 mg Documented by: Midodrine (Midodrine Hcl 5 Mg Tablet) 10 mg PO TIDCM [facility] Last Admin: 10/19/20 11:39 Dose: 10 mg Documented by: Nutritional Formula (Lactose Free) (Glucerna Shake 120 Ml Liquid) 120 ml PO TIDCM [facility] Last Admin: 10/19/20 11:38 Dose: 120 ml Documented by: Ondansetron HCl (Ondansetron 4 Mg/2 Ml Vial) 4 mg IV Q8H PRN PRN PRN Reason: NAUSEA/VOMITING Last Admin: 10/14/20 01:15 Dose: 4 mg Documented by: Pantoprazole Sodium (Pantoprazole Sodium 20 Mg Tablet) 20 mg PO BID [facility] Last Admin: 10/19/20 10:12 Dose: 20 mg Documented by: Senna (Senna Tablet) 1 tablet PO DAILY [facility] Last Admin: 10/19/20 10:14 Dose: Not Given Documented by: Sodium Chloride (0.9% Saline Lock 10 Ml Syringe) 10 - 40 ml IV UD PRN PRN Reason: SALINE FLUSH Last Admin: 10/15/20 08:57 Dose: 20 ml Documented by: Tamsulosin HCl (Tamsulosin Hcl 0.4 Mg Capsule) 0.8 mg PO DAILY@0830 [facility] Last Admin: 10/19/20 10:11 Dose: 0.8 mg Documented by: Warfarin Sodium (Warfarin 1 Mg Tablet) 1 mg PO DAILY@1700 [facility] Last Admin: 10/18/20 17:13 Dose: 1 mg Documented by: Assessment/Plan Patient seen and examined independently. Data reviewed. I agree with the above note by the nurse practitioner. ASSESSMENT Acute blood loss anemia Hypotension-resolved with midodrine GI bleeding-resolved CKD stage IIIb-resolved HUONG Hyperkalemia-resolved Mild hyperbilirubinemia Supratherapeutic INR-resolved Anasarca Chronic anticoagulation Permanent atrial fibrillation Mechanical aortic valve HFrEF (EF 30%) secondary to ischemic cardiomyopathy--> decompensated Hyperlipidemia COPD EMERY CAD DM-2 Hypothyroidism GERD Constipation BPH History of hematuria Schizoaffective disorder Hyponatremia PLAN -Patient was transfused a total of 3 units of packed red blood cells on 10/13/2020 -Hemoglobin remains stable at 8.3 -Continue Coumadin at 1mg daily -A.M. INR was 2.7 from 2.5 yesterday -Continue midodrine 10 mg 3 times daily help support blood pressure -Lasix 40 mg IV push 3 times daily -For to p.o. Lasix when able -Patient remains on 2L nasal cannula with stable oxygen saturations on 1 L nasal cannula between 93 and 95% -He had been on room air but desaturated to 89% and therefore was replaced to 1 L -Sodium remains stable -Serum creatinine continues to improve and today is 2.24 --> and is now in baseline range of 2-2.6 -Nephrology is following--> appreciate input -HUONG has resolved -No hemoglobin drop with the reinitiation of Plavix -will continue -Iron studies do not appear consistent with iron deficiency although patient was just transfused 3 units of packed red blood cells so these could be artificially skewed with recent transfusion -Need repeat iron studies in the future -Believe at this time the patient is excepting the severity of his illness as he keeps focus on ongoing home and being able to walk out of here rather than going back to a nursing facility for continued care. The likelihood of him being able to go back home ever I suspect is quite negligible. Plan for SNF upon discharge. Pt does not want [facility]. Inpatient E&M: 47322 Subs Hosp L2
--- NOTE | 2020-10-19 13:21 | PCM.HP.STD ---
History of Present Illness The patient is a 80 year old M [] Past Medical History Past Medical History (Chronic Problems): Chronic Problems Chronic respiratory failure with hypoxia (Chronic) Chronic a-fib (Chronic) Pulmonary hypertension (Chronic) mild Coronary artery disease (Chronic) stent placement 04/12 Acute on chronic renal failure (Chronic) CKD (chronic kidney disease) stage 4, GFR 15-29 ml/min (Chronic) Dilated cardiomyopathy (Chronic) EF 30 % Obstructive sleep apnea (Chronic) Cerebrovascular disease (Chronic) Schizoaffective disorder (Chronic) Acute cerebrovascular accident (Chronic) CAD (coronary artery disease) (Chronic) mechanical prosthetic aortic valve replacement (Chronic) Hyperlipidemia (Chronic) DM type 2 (diabetes mellitus, type 2) (Chronic) Chronic obstructive lung disease (Chronic) Allergies ticagrelor [From Brilinta] Allergy (Verified 10/12/20 18:40) WEAKNESS Home Medications: Ambulatory Orders Medication Instructions Recorded Amiodarone HCl 200 mg PO DAILY 06/05/20 Atorvastatin Calcium [Lipitor] 80 mg PO QHS 06/05/20 Budesonide Aerosol [Pulmicort 0.5 mg INHALATION BID 06/05/20 Respules] Clopidogrel Bisulfate [Plavix] 75 mg PO DAILY 06/05/20 Levothyroxine [Synthroid] 50 mcg PO DAILY 06/05/20 Metoprolol(XL)Succ [Toprol Xl 50 mg PO DAILY 06/05/20 (Beta Damir)] Omeprazole 20 mg PO BID 06/05/20 Docusate Sodium 100 mg PO BID 08/22/20 Nitroglycerin SL (ED ONLY) 0.4 mg SUBLINGUAL PRN PRN 08/22/20 [Nitrostat] Senna [Senokot] 1 tab PO DAILY 08/22/20 Mag Hydrox/Aluminum Hyd/Simeth 30 ml PO Q4H PRN PRN 09/01/20 [Alum-Mag Hydroxide-Simeth Susp] Acetaminophen [Tylenol Tablet] 325 mg PO Q6H PRN PRN tab 09/14/20 Finasteride [Proscar] 5 mg PO DAILY tab 09/14/20 Insulin Glargine [Lantus SoloStar 22 units SC QHS pen 09/14/20 Pen] Ipratropium/Albuterol Sulfate 3 ml INHALATION Q4H.RT ampul.neb 09/14/20 [Duoneb] Tamsulosin HCl [Flomax] 0.8 mg PO DAILY@0830 cap 09/14/20 Benzonatate [Tessalon Perle] 100 mg PO TID PRN PRN 10/12/20 Furosemide [Lasix] 40 mg PO BID 10/12/20 Guaifenesin Dm [Robitussin Dm] 10 ml PO Q4H PRN 10/12/20 Insulin Lispro [Humalog] 0 unit SC [facility] 10/12/20 Melatonin 5 mg PO QHS PRN 10/12/20 Warfarin [Coumadin] 3 mg PO DAILY 10/12/20 Surgical History: cholecystectomy, - - Bladder resection and aortic valve replacement Psychiatric History: Bipolar Lives: Correction Smoking Status: Former smoker Alcohol: None Drugs: None - *Family History Maternal History Items: Unknown - He does not know any biological history of either parent as he was raised in an orphanage Patient Problems: Active and Suspected Problems Acute blood loss anemia (Acute) Systolic CHF (Acute) Symptomatic anemia (Acute) Congestive heart failure (Acute) Hypotension (Acute) Weakness (Acute) HUONG (acute kidney injury) (Acute) Supratherapeutic INR (Acute) Anticoagulation goal of INR 2.5 to 3.5 (Acute) - Physical Exam Vitals/I&O's: Vital Signs Temp Pulse Resp BP Pulse Ox 36.7 C 82 25 H 92/67 98 10/19/20 12:00 10/19/20 12:00 10/19/20 12:00 10/19/20 12:00 10/19/20 12:00 Oxygen Flow Rate (L/min) 2 Oxygen Delivery Method Nasal Cannula Weight: 95.5 kg Body Mass Index (BMI) 33.0 Finger Stick Blood Glucose 188 Intake and Output for Last 24 Hours 10/17/20 10/18/20 10/19/20 23:59 23:59 23:59 Intake Total 1007.7 / 1007.7 305.25 / 305.25 360 / 360 Output Total 2575 / 2575 1225 / 1225 575 / 575 Balance -1567.3 / -1567.3 -919.75 / -919.75 -215 / -215 Laboratory Results 10/18/20 17:09: POC Glucose 155 H 10/18/20 22:33: POC Glucose 170 H 10/19/20 05:12: PT 29.8 H, INR 2.9 10/19/20 05:12: WBC 6.3, RBC 3.31 L, Hgb 8.3 L, Hct 28.5 L, MCV 86.1, MCH 25.1 L, MCHC 29.1 L, RDW Std Deviation 63.8 H, RDW Coeff of Yessi 20.9 H, Plt Count 168, MPV 9.6 10/19/20 05:12: Sodium 136, Potassium 3.4 L, Chloride 101, Carbon Dioxide 29.0, Anion Gap 6, BUN 70 H, Creatinine 2.24 H, Estim Creat Clear Calc 25.87, Est GFR (MDRD) Af Amer 37 L, Est GFR (MDRD) Non-Af 30 L, BUN/Creatinine Ratio 31.2 H, Glucose 117 H, Calcium 8.5 10/19/20 06:14: POC Glucose 120 H 10/19/20 11:37: POC Glucose 139 H Current Medications Acetaminophen (Acetaminophen 325 Mg Tablet) 650 mg PO Q6H PRN PRN PRN Reason: Pain Score 1-10/Temp > 100.7 F Last Admin: 10/15/20 13:04 Dose: 650 mg Documented by: Albuterol Sulfate (Albuterol 2.5 Mg/3 Ml Vial.Neb.) 2.5 mg INHALATION Q2H PRN PRN PRN Reason: SOB/Wheezing Albuterol/Ipratropium (Ipratropium/Albuterol Sulfate 3 Ml Ampul.Neb) 3 ml INHALATION Q4H.RT [facility] Last Admin: 10/19/20 11:10 Dose: 3 ml Documented by: Amiodarone HCl (Amiodarone 200 Mg Tablet) [facility] Last Admin: 10/19/20 10:17 Dose: 200 mg Documented by: Atorvastatin Calcium (Atorvastatin Calcium 80 Mg Tablet) 80 mg PO QHS [facility] Last Admin: 10/18/20 22:42 Dose: 80 mg Documented by: Benzonatate (Benzonatate 100 Mg Capsule) 100 mg PO TID PRN PRN PRN Reason: COUGH Last Admin: 10/15/20 13:04 Dose: 100 mg Documented by: Clopidogrel Bisulfate (Clopidogrel Bisulfate 75 Mg Tablet) 75 mg PO DAILY [facility] Last Admin: 10/19/20 10:12 Dose: 75 mg Documented by: Docusate Sodium (Docusate Sodium 100 Mg Capsule) 100 mg PO BID [facility] Last Admin: 10/19/20 10:13 Dose: Not Given Documented by: Finasteride (Finasteride 5 Mg Tablet) 5 mg PO DAILY [facility] Last Admin: 10/19/20 10:13 Dose: 5 mg Documented by: Furosemide (Furosemide 40 Mg/4 Ml Vial) 40 mg IV Q8 [facility] Last Admin: 10/19/20 05:34 Dose: 40 mg Documented by: Guaifenesin (Guaifenesin 1,200 Mg Tablet) 1,200 mg PO BID [facility] Last Admin: 10/19/20 10:11 Dose: 1,200 mg Documented by: Sodium Chloride () 500 mls @ 15 mls/hr IV PRN PRN PRN Reason: Blood Transfusion Sodium Chloride () 250 mls @ 15 mls/hr IV .[id number] PRN PRN Reason: Saline Flush Insulin Glargine (Insulin Glargine 100 Units/Ml Pen) 22 units SC QHS [facility] Last Admin: 10/18/20 22:38 Dose: 22 u Documented by: Insulin Human Lispro (Insulin Lispro 100 Unit/Ml Insuln.Pen) 0 unit SC [facility]; Protocol Last Admin: 10/19/20 11:38 Dose: Not Given Documented by: Levothyroxine Sodium (Levothyroxine 50 Mcg Tablet) 50 mcg PO DAILY@0600 [facility] Last Admin: 10/19/20 05:34 Dose: 50 mcg Documented by: Melatonin (Melatonin 10 Mg Tablet) 5 mg PO QHS PRN PRN Reason: SLEEP Last Admin: 10/14/20 01:15 Dose: 5 mg Documented by: Metoprolol Tartrate (Metoprolol Tartrate 25 Mg Tablet) 12.5 mg PO BID [facility] Last Admin: 10/19/20 10:10 Dose: 12.5 mg Documented by: Midodrine (Midodrine Hcl 5 Mg Tablet) 10 mg PO TIDCM [facility] Last Admin: 10/19/20 11:39 Dose: 10 mg Documented by: Nutritional Formula (Lactose Free) (Glucerna Shake 120 Ml Liquid) 120 ml PO TIDCM [facility] Last Admin: 10/19/20 11:38 Dose: 120 ml Documented by: Ondansetron HCl (Ondansetron 4 Mg/2 Ml Vial) 4 mg IV Q8H PRN PRN PRN Reason: NAUSEA/VOMITING Last Admin: 10/14/20 01:15 Dose: 4 mg Documented by: Pantoprazole Sodium (Pantoprazole Sodium 20 Mg Tablet) 20 mg PO BID [facility] Last Admin: 10/19/20 10:12 Dose: 20 mg Documented by: Senna (Senna Tablet) 1 tablet PO DAILY [facility] Last Admin: 10/19/20 10:14 Dose: Not Given Documented by: Sodium Chloride (0.9% Saline Lock 10 Ml Syringe) 10 - 40 ml IV UD PRN PRN Reason: SALINE FLUSH Last Admin: 10/15/20 08:57 Dose: 20 ml Documented by: Tamsulosin HCl (Tamsulosin Hcl 0.4 Mg Capsule) 0.8 mg PO DAILY@0830 [facility] Last Admin: 10/19/20 10:11 Dose: 0.8 mg Documented by: Warfarin Sodium (Warfarin 1 Mg Tablet) 1 mg PO DAILY@1700 [facility] Last Admin: 10/18/20 17:13 Dose: 1 mg Documented by: Assessment/Plan All Active Problems Acute blood loss anemia (Acute) Systolic CHF (Acute) Symptomatic anemia (Acute) Congestive heart failure (Acute) Hypotension (Acute) Weakness (Acute) HUONG (acute kidney injury) (Acute) Hyperkalemia (Acute) GI bleed (Resolved) Supratherapeutic INR (Acute) Gross hematuria (Acute) Anticoagulation goal of INR 2.5 to 3.5 (Acute) Facial droop (Resolved)
--- NOTE | 2020-10-19 13:35 | CASEMGMT ---
DARRON received a call from Milagro with [employer]. She said she has the referral and is taking it to the team to review. She will let DARRON know their response. Naomi RAMIREZ
[2020-10-19] MEDS: 0.9% Saline Lock 10 ML Syringe IV (14:42)
--- NOTE | 2020-10-19 15:07 | CASEMGMT ---
Patient has a Healthcare Power of Guest Relations Coordinator and a Healthcare Living Will on file at [facility]. His friend Feng Lujan is his Healthcare Power of Guest Relations Coordinator. Naomi RAMIREZ
--- NOTE | 2020-10-19 15:13 | CASEMGMT ---
DARRON went to talk with patient to update him on the nursing homes. [facility]. DARRON told him SW is still waiting on [place] to call back. Patient said he wants to go to [facility]. SW told him that will be the plan. DARRON called [facility] and left a voice mail letting them know to cancel the referral. DARRON also called Krissy and let her know. She said if patient is discharged before October 22 he does not need a pre-cert. However, if he discharges on the or after he will need a pre-cert. Plan: d/c to [facility] when ready. Naomi Bernard DISPATCH SUPERVISOR ASHLEY
--- NOTE | 2020-10-19 16:14 | PCM.PN.REN ---
Patient Problems: Active and Suspected Problems Acute blood loss anemia (Acute) Systolic CHF (Acute) Symptomatic anemia (Acute) Congestive heart failure (Acute) Hypotension (Acute) Weakness (Acute) HUONG (acute kidney injury) (Acute) Supratherapeutic INR (Acute) Anticoagulation goal of INR 2.5 to 3.5 (Acute) Subjective: Following for acute kidney injury. T he patient is feeling better overall. He is also bloated and swollen, but it is better than before. The patient still unable to walk because of weakness. - Physical Exam Vitals/I&O's: Vital Signs Temp Pulse Resp BP Pulse Ox 97.7 F L 92 26 H 145/125 H 98 10/19/20 15:00 10/19/20 15:00 10/19/20 15:00 10/19/20 15:00 10/19/20 15:00 Oxygen Flow Rate (L/min) 2 Oxygen Delivery Method Nasal Cannula Weight: 95.5 kg Body Mass Index (BMI) 33.0 Finger Stick Blood Glucose 188 Intake and Output for Last 24 Hours 10/17/20 10/18/20 10/19/20 23:59 23:59 23:59 Intake Total 1007.7 / 1007.7 305.25 / 305.25 360 / 360 Output Total 2575 / 2575 1225 / 1225 575 / 575 Balance -1567.3 / -1567.3 -919.75 / -919.75 -215 / -215 General: Alert, Oriented x3 HEENT: Atraumatic, PERRLA, EOMI Oral: Moist Mucosa Neck: Supple Lungs: Diminished - Lung bases Cardiovascular: Normal S1, Normal S2, No murmurs Abdomen: Bowel Sounds Present, Soft, Non Tender, Non-Distended Extremities: Edema - Plus edema lower extremity Laboratory Results 10/18/20 17:09: POC Glucose 155 H 10/18/20 22:33: POC Glucose 170 H 10/19/20 05:12: PT 29.8 H, INR 2.9 10/19/20 05:12: WBC 6.3, RBC 3.31 L, Hgb 8.3 L, Hct 28.5 L, MCV 86.1, MCH 25.1 L, MCHC 29.1 L, RDW Std Deviation 63.8 H, RDW Coeff of Yessi 20.9 H, Plt Count 168, MPV 9.6 03/29/21 05:12: Sodium 136, Potassium 3.4 L, Chloride 101, Carbon Dioxide 29.0, Anion Gap 6, BUN 70 H, Creatinine 2.24 H, Estim Creat Clear Calc 25.87, Est GFR (MDRD) Af Amer 37 L, Est GFR (MDRD) Non-Af 30 L, BUN/Creatinine Ratio 31.2 H, Glucose 117 H, Calcium 8.5 10/19/20 06:14: POC Glucose 120 H 10/19/20 11:37: POC Glucose 139 H Current Medications Acetaminophen (Acetaminophen 325 Mg Tablet) 650 mg PO Q6H PRN PRN PRN Reason: Pain Score 1-10/Temp > 100.7 F Last Admin: 10/15/20 13:04 Dose: 650 mg Documented by: Albuterol Sulfate (Albuterol 2.5 Mg/3 Ml Vial.Neb.) 2.5 mg INHALATION Q2H PRN PRN PRN Reason: SOB/Wheezing Albuterol/Ipratropium (Ipratropium/Albuterol Sulfate 3 Ml Ampul.Neb) 3 ml INHALATION Q4H.RT [facility] Last Admin: 10/19/20 11:10 Dose: 3 ml Documented by: Amiodarone HCl (Amiodarone 200 Mg Tablet) 200 mg PO DAILYCM [facility] Last Admin: 10/19/20 10:17 Dose: 200 mg Documented by: Atorvastatin Calcium (Atorvastatin Calcium 80 Mg Tablet) 80 mg PO QHS [facility] Last Admin: 10/18/20 22:42 Dose: 80 mg Documented by: Benzonatate (Benzonatate 100 Mg Capsule) 100 mg PO TID PRN PRN PRN Reason: COUGH Last Admin: 10/15/20 13:04 Dose: 100 mg Documented by: Clopidogrel Bisulfate (Clopidogrel Bisulfate 75 Mg Tablet) 75 mg PO DAILY [facility] Last Admin: 10/19/20 10:12 Dose: 75 mg Documented by: Docusate Sodium (Docusate Sodium 100 Mg Capsule) 100 mg PO BID [facility] Last Admin: 10/19/20 10:13 Dose: Not Given Documented by: Finasteride (Finasteride 5 Mg Tablet) 5 mg PO DAILY [facility] Last Admin: 10/19/20 10:13 Dose: 5 mg Documented by: Furosemide (Furosemide 40 Mg/4 Ml Vial) 40 mg IV Q8 [facility] Last Admin: 10/19/20 14:42 Dose: 40 mg Documented by: Guaifenesin (Guaifenesin 1,200 Mg Tablet) 1,200 mg PO BID [facility] Last Admin: 10/19/20 10:11 Dose: 1,200 mg Documented by: Sodium Chloride () 500 mls @ 15 mls/hr IV PRN PRN PRN Reason: Blood Transfusion Sodium Chloride () 250 mls @ 15 mls/hr IV .[id number] PRN PRN Reason: Saline Flush Insulin Glargine (Insulin Glargine 100 Units/Ml Pen) 22 units SC QHS [facility] Last Admin: 10/18/20 22:38 Dose: 22 u Documented by: Insulin Human Lispro (Insulin Lispro 100 Unit/Ml Insuln.Pen) 0 unit SC [facility]; Protocol Last Admin: 10/19/20 11:38 Dose: Not Given Documented by: Levothyroxine Sodium (Levothyroxine 50 Mcg Tablet) 50 mcg PO DAILY@0600 [facility] Last Admin: 10/19/20 05:34 Dose: 50 mcg Documented by: Melatonin (Melatonin 10 Mg Tablet) 5 mg PO QHS PRN PRN Reason: SLEEP Last Admin: 10/14/20 01:15 Dose: 5 mg Documented by: Metoprolol Tartrate (Metoprolol Tartrate 25 Mg Tablet) 12.5 mg PO BID [facility] Last Admin: 10/19/20 10:10 Dose: 12.5 mg Documented by: Midodrine (Midodrine Hcl 5 Mg Tablet) 10 mg PO TIDCM [facility] Last Admin: 10/19/20 11:39 Dose: 10 mg Documented by: Nutritional Formula (Lactose Free) (Glucerna Shake 120 Ml Liquid) 120 ml PO TIDCM [facility] Last Admin: 10/19/20 11:38 Dose: 120 ml Documented by: Ondansetron HCl (Ondansetron 4 Mg/2 Ml Vial) 4 mg IV Q8H PRN PRN PRN Reason: NAUSEA/VOMITING Last Admin: 10/14/20 01:15 Dose: 4 mg Documented by: Pantoprazole Sodium (Pantoprazole Sodium 20 Mg Tablet) 20 mg PO BID [facility] Last Admin: 10/19/20 10:12 Dose: 20 mg Documented by: Senna (Senna Tablet) 1 tablet PO DAILY [facility] Last Admin: 10/19/20 10:14 Dose: Not Given Documented by: Sodium Chloride (0.9% Saline Lock 10 Ml Syringe) 10 - 40 ml IV UD PRN PRN Reason: SALINE FLUSH Last Admin: 10/19/20 14:42 Dose: 10 ml Documented by: Tamsulosin HCl (Tamsulosin Hcl 0.4 Mg Capsule) 0.8 mg PO DAILY@0830 [facility] Last Admin: 10/19/20 10:11 Dose: 0.8 mg Documented by: Warfarin Sodium (Warfarin 1 Mg Tablet) 1 mg PO DAILY@1700 [facility] Last Admin: 10/18/20 17:13 Dose: 1 mg Documented by: Medical Necessity - Tobacco Use Smoking Status: Former smoker Assessment/Plan All Active Problems Acute blood loss anemia (Acute) Systolic CHF (Acute) Symptomatic anemia (Acute) Congestive heart failure (Acute) Hypotension (Acute) Weakness (Acute) HUONG (acute kidney injury) (Acute) Hyperkalemia (Acute) GI bleed (Resolved) Supratherapeutic INR (Acute) Gross hematuria (Acute) Anticoagulation goal of INR 2.5 to 3.5 (Acute) Facial droop (Resolved) 1. Acute kidney injury on chronic kidney disease stage IV. Baseline serum creatinine has been around 2.0 to 2.6 mg/dL. Suspect CKD may be secondary to diabetic kidney disease. HUONG is likely due to cardiorenal syndrome. Renal function has stabilized at baseline despite aggressive diuresis with furosemide. The patient was transitioned from furosemide drip to intermittent IV furosemide yesterday. The patient still appears to be fluid overloaded. Therefore, I would continue the current attempt to diurese the patient while monitoring his renal function, electrolytes, and acid?base status closely. There is no urgent need for kidney replacement therapy at this point. Continue IV furosemide for today. If there is further weight loss in the next 24 to 48 hours, we can transition the patient to oral bumetanide which would work better in his case since he is hypoalbuminemic. The current medications were reviewed, and they are all appropriately dosed for his estimated creatinine clearance. 2. Decompensated heart failure. The patient has heart failure with reduced ejection fraction. EF is 30%. The patient is on beta-rocael. He is not on AL inhibitor because of acute kidney injury. Continue current attempt to diurese the patient. 3. Hyponatremia. Resolved. Prior hyponatremia was likely due to heart failure. Continue to monitor serum sodium while we are diuresing the patient. 4. Anemia. Hemoglobin is 8.3 g/dL, but hemoglobin is relatively stable for the past 72 hours. Iron studies are not accurate since the patient received blood transfusion recently. We will hold off on starting MARIAM since hemoglobin has not significantly decreased.
[2020-10-19] MEDS: Insulin Lispro 100 UNIT/ML INSULN.PEN SC (16:17)
[2020-10-19 16:31] LABS: Bedside Glucose 244 mg/dL (70-110)
[2020-10-19] MEDS: Atorvastatin Calcium 80 MG Tablet PO (21:10)
[2020-10-19 21:20] LABS: Bedside Glucose 143 mg/dL (70-110)
[2020-10-19] MEDS: MELATONIN 10 MG TABLET 5 MG PO (22:00)
[2020-10-20] VITALS (25 sets, daily range): BP systolic 81–121; BP diastolic 54–83; PULSE 76–99; RESP 20–32; TEMP 35.8–36.7; O2SAT 90–98
[2020-10-20] MEDS: Furosemide 40 MG/4 ML Vial IV ×3 (05:37→21:46)
[2020-10-20] MEDS: Levothyroxine 50 MCG Tablet PO (05:37)
[2020-10-20] MEDS: 0.9% Saline Lock 10 ML Syringe IV ×3 (05:37→21:50)
[2020-10-20 06:11] LABS: Hematocrit 28.5 % (40-54); Hemoglobin 8.5 g/dL (13.0-16.5); Mean Corp Hgb Conc 29.8 g/dL (32-36); Mean Corpuscular Hgb 25.4 pg (27.0-32.0); Mean Corpuscular Volume 85.3 fL (80-94); Mean Platelet Vol. 9.9 fl (6.2-12.0); POSITIVE MORPHOLOGY YES; Platelet Count 183 K/mm3 (150-450); RBC Distribution Width SD 64.2 fl (35.1-43.9); Red Blood Count 3.34 M/mm3 (4.6-6.2)
[2020-10-20 06:15] LABS: Scan Indicated on CBC? Y/N YES- FLAGS NOTED
[2020-10-20 06:19] LABS: International Normalized Ratio 3.1; Prothrombin Time (Protime)PT. 30.8 SECONDS (11.7-14.9)
[2020-10-20 06:40] LABS: Bedside Glucose 141 mg/dL (70-110)
[2020-10-20 06:47] LABS: Anion Gap 7 (5-15); BUN 68 mg/dL (7-18); BUN/Creat Ratio 28.7 RATIO (10-20); Calcium,Total 8.7 mg/dL (8.5-10.1); Chloride 105 mmol/L (98-107); Creatinine, Serum 2.37 mg/dL (0.70-1.30); EST Glomerular Filtration Rate 28 mL/min (>60); Est Glom Filt Rate - Afr Amer 34 mL/min (>60); Estimated Creatinine Clearance 24.45 ml/min; Glucose 130 mg/dL (74-106); Potassium 3.9 mmol/L (3.5-5.1); Sodium Level 138 mmol/L (136-145)
[2020-10-20] MEDS: Ipratropium/Albuterol Sulfate 3 ML AMPUL.NEB INHALATION ×5 (07:10→23:03)
[2020-10-20] MEDS: Finasteride 5 MG Tablet PO (08:40)
[2020-10-20] MEDS: guaiFENesin 1,200 MG Tablet 1200 MG PO ×2 (08:40→21:46)
[2020-10-20] MEDS: Clopidogrel Bisulfate 75 MG Tablet PO (08:40)
[2020-10-20] MEDS: Pantoprazole Sodium 20 MG Tablet PO ×2 (08:40→21:46)
[2020-10-20] MEDS: Amiodarone 200 MG Tablet PO (08:40)
[2020-10-20] MEDS: Tamsulosin HCl 0.4 MG Capsule 0.8 MG PO (08:40)
[2020-10-20] MEDS: Glucerna Shake 120 ML LIQUID PO ×2 (08:41→11:26)
[2020-10-20] MEDS: Midodrine HCl 5 MG Tablet 10 MG PO ×3 (08:41→16:22)
--- NOTE | 2020-10-20 10:16 | CASEMGMT ---
DARRON called Mariama Bryan with [facility] and left her a voice mail letting her know patient agreed to go to [facility] and he will likely go tomorrow. DARRON will fax d/c information. Naomi RAMIREZ
--- NOTE | 2020-10-20 10:23 | PCM.PROGNOTE ---
<RichardCheryl [employer] HELPER - Last Filed: 10/20/20 10:45> Patient Problems: Active and Suspected Problems Acute blood loss anemia (Acute) Systolic CHF (Acute) Symptomatic anemia (Acute) Congestive heart failure (Acute) Hypotension (Acute) Weakness (Acute) HUONG (acute kidney injury) (Acute) Supratherapeutic INR (Acute) Anticoagulation goal of INR 2.5 to 3.5 (Acute) Subjective: Patient seen and examined. Remains edematous however improved. Breathing stable. No new complaints. - Physical Exam Vitals/I&O's: Vital Signs Temp Pulse Resp BP Pulse Ox 97.8 F 87 24 H 94/69 94 10/20/20 05:00 10/20/20 08:42 10/20/20 07:10 10/20/20 08:42 10/20/20 07:10 Oxygen Flow Rate (L/min) 2 Oxygen Delivery Method Nasal Cannula Weight: 214 lb 8.156 oz Body Mass Index (BMI) 33.0 Finger Stick Blood Glucose 188 Intake and Output for Last 24 Hours 10/18/20 10/19/20 10/20/20 23:59 23:59 23:59 Intake Total 305.25 / 305.25 600 / 720 170 / 170 Output Total 1225 / 1225 725 / 975 400 / 400 Balance -919.75 / -919.75 -125 / -255 -230 / -230 General: Alert, Oriented x3, Cooperative HEENT: Atraumatic, PERRLA, EOMI, Normocephalic Neck: Supple, No JVD, Negative Carotid Bruits Lungs: Clear to auscultation, Diminished Cardiovascular: Regular rate, No murmurs Abdomen: Bowel Sounds Present, Soft, Non Tender, Non-Distended Extremities: No clubbing, No cyanosis, Edema - +3 bilateral lower extremities Skin: No rashes, No breakdown Musculoskeletal: No Tenderness to Palpation of Joints or Extremities Neurological: Cranial nerves II-XII grossly intact, Neuro grossly intact Psych/Mental Status: Flat Affect Laboratory Results 10/19/20 11:37: POC Glucose 139 H 10/19/20 16:15: POC Glucose 244 H 10/19/20 21:06: POC Glucose 143 H 10/20/20 05:58: PT 30.8 H, INR 3.1 10/20/20 05:58: WBC 6.0, RBC 3.34 L, Hgb 8.5 L, Hct 28.5 L, MCV 85.3, MCH 25.4 L, MCHC 29.8 L, RDW Std Deviation 64.2 H, RDW Coeff of Yessi 21.0 H, Plt Count 183, MPV 9.9, Differential Comment SEE COMMENT 10/20/20 05:58: Sodium 138, Potassium 3.9, Chloride 105, Carbon Dioxide 26.0, Anion Gap 7, BUN 68 H, Creatinine 2.37 H, Estim Creat Clear Calc 24.45, Est GFR (MDRD) Af Amer 34 L, Est GFR (MDRD) Non-Af 28 L, BUN/Creatinine Ratio 28.7 H, Glucose 130 H, Calcium 8.7 10/20/20 06:35: POC Glucose 141 H Current Medications Acetaminophen (Acetaminophen 325 Mg Tablet) 650 mg PO Q6H PRN PRN PRN Reason: Pain Score 1-10/Temp > 100.7 F Last Admin: 10/15/20 13:04 Dose: 650 mg Documented by: Albuterol Sulfate (Albuterol 2.5 Mg/3 Ml Vial.Neb.) 2.5 mg INHALATION Q2H PRN PRN PRN Reason: SOB/Wheezing Albuterol/Ipratropium (Ipratropium/Albuterol Sulfate 3 Ml Ampul.Neb) 3 ml INHALATION Q4H.RT [facility] Last Admin: 10/20/20 07:10 Dose: 3 ml Documented by: Amiodarone HCl (Amiodarone 200 Mg Tablet) 200 mg PO DAILYCM [facility] Last Admin: 10/20/20 08:40 Dose: 200 mg Documented by: Atorvastatin Calcium (Atorvastatin Calcium 80 Mg Tablet) 80 mg PO QHS [facility] Last Admin: 10/19/20 21:10 Dose: 80 mg Documented by: Benzonatate (Benzonatate 100 Mg Capsule) 100 mg PO TID PRN PRN PRN Reason: COUGH Last Admin: 10/15/20 13:04 Dose: 100 mg Documented by: Clopidogrel Bisulfate (Clopidogrel Bisulfate 75 Mg Tablet) 75 mg PO DAILY [facility] Last Admin: 10/20/20 08:40 Dose: 75 mg Documented by: Docusate Sodium (Docusate Sodium 100 Mg Capsule) 100 mg PO BID [facility] Last Admin: 10/20/20 08:41 Dose: Not Given Documented by: Finasteride (Finasteride 5 Mg Tablet) 5 mg PO DAILY [facility] Last Admin: 10/20/20 08:40 Dose: 5 mg Documented by: Furosemide (Furosemide 40 Mg/4 Ml Vial) 40 mg IV Q8 [facility] Last Admin: 10/20/20 05:37 Dose: 40 mg Documented by: Guaifenesin (Guaifenesin 1,200 Mg Tablet) 1,200 mg PO BID [facility] Last Admin: 10/20/20 08:40 Dose: 1,200 mg Documented by: Sodium Chloride () 500 mls @ 15 mls/hr IV PRN PRN PRN Reason: Blood Transfusion Sodium Chloride () 250 mls @ 15 mls/hr IV .[id number] PRN PRN Reason: Saline Flush Insulin Glargine (Insulin Glargine 100 Units/Ml Pen) 22 units SC QHS [facility] Last Admin: 10/19/20 21:10 Dose: 22 u Documented by: Insulin Human Lispro (Insulin Lispro 100 Unit/Ml Insuln.Pen) 0 unit SC [facility]; Protocol Last Admin: 10/20/20 06:36 Dose: Not Given Documented by: Levothyroxine Sodium (Levothyroxine 50 Mcg Tablet) 50 mcg PO DAILY@0600 [facility] Last Admin: 10/20/20 05:37 Dose: 50 mcg Documented by: Melatonin (Melatonin 10 Mg Tablet) 5 mg PO QHS PRN PRN Reason: SLEEP Last Admin: 10/19/20 22:00 Dose: 5 mg Documented by: Metoprolol Tartrate (Metoprolol Tartrate 25 Mg Tablet) 12.5 mg PO BID [facility] Last Admin: 10/20/20 08:42 Dose: Not Given Documented by: Midodrine (Midodrine Hcl 5 Mg Tablet) 10 mg PO TIDCM [facility] Last Admin: 10/20/20 08:41 Dose: 10 mg Documented by: Nutritional Formula (Lactose Free) (Glucerna Shake 120 Ml Liquid) 120 ml PO TIDCM [facility] Last Admin: 10/20/20 08:41 Dose: 120 ml Documented by: Ondansetron HCl (Ondansetron 4 Mg/2 Ml Vial) 4 mg IV Q8H PRN PRN PRN Reason: NAUSEA/VOMITING Last Admin: 10/14/20 01:15 Dose: 4 mg Documented by: Pantoprazole Sodium (Pantoprazole Sodium 20 Mg Tablet) 20 mg PO BID [facility] Last Admin: 10/20/20 08:40 Dose: 20 mg Documented by: Senna (Senna Tablet) 1 tablet PO DAILY [facility] Last Admin: 10/20/20 08:42 Dose: Not Given Documented by: Sodium Chloride (0.9% Saline Lock 10 Ml Syringe) 10 - 40 ml IV UD PRN PRN Reason: SALINE FLUSH Last Admin: 10/20/20 05:37 Dose: 20 ml Documented by: Tamsulosin HCl (Tamsulosin Hcl 0.4 Mg Capsule) 0.8 mg PO DAILY@0830 [facility] Last Admin: 10/20/20 08:40 Dose: 0.8 mg Documented by: Warfarin Sodium (Warfarin 1 Mg Tablet) 1 mg PO DAILY@1700 [facility] Last Admin: 10/19/20 16:20 Dose: 1 mg Documented by: Medical Necessity - Tobacco Use Smoking Status: Former smoker Assessment/Plan All Active Problems Acute blood loss anemia (Acute) Systolic CHF (Acute) Symptomatic anemia (Acute) Congestive heart failure (Acute) Hypotension (Acute) Weakness (Acute) HUONG (acute kidney injury) (Acute) Hyperkalemia (Acute) GI bleed (Resolved) Supratherapeutic INR (Acute) Gross hematuria (Acute) Anticoagulation goal of INR 2.5 to 3.5 (Acute) Facial droop (Resolved) 1. Acute kidney injury on chronic kidney disease stage III-nephrology consulted. Suspect cardiorenal syndrome. Continue IV Lasix. Renal ultrasound normal. Trend BMP. Creatinine improving with diuresis. 2. Acute blood loss anemia secondary to GI bleed- Stool positive for occult blood. Status post 3 units PRBC. Continue PPI. Trend CBC. Remains stable. Coumadin and Plavix resumed. 3. Supratherapeutic INR-resolved following reversal. Coumadin resumed at lower dose. Trend INR. 4. Hypotension-stable. Initiated on midodrine. 5. Acute on chronic heart failure with reduced ejection fraction/ischemic cardiomyopathy, associated anasarca-EF 30%. IV Lasix as noted above. 6. Permanent atrial fibrillation on chronic anticoagulation with Coumadin 7. History of mechanical aortic valve 8. Chronic COPD-as needed albuterol aerosol. 9. EMERY- continue home pap regimen. 10. CAD-continue statin, Plavix. Resume low-dose metoprolol with hold parameters. 11. Type 2 diabetes [id number] with sliding scale insulin. Continue home insulin regimen. 12. Hypothyroidism-continue Synthroid. 13. GERD-continue PPI. 14. BPH-on Flomax. 15. Schizoaffective disorder-continue home medication regimen. DVT prophylaxis-Coumadin Discharge planning: SNF when medically stable. Palliative will follow at discharge. This patient was seen by BENEDICT Morocho under the supervision of Dr. Wei. <Marino Wei - Last Filed: 10/20/20 13:19> - Physical Exam Vitals/I&O's: Vital Signs Temp Pulse Resp BP Pulse Ox 36.7 C 90 22 H 121/69 H 90 10/20/20 12:00 10/20/20 12:00 10/20/20 12:00 10/20/20 12:00 10/20/20 12:25 Oxygen Flow Rate (L/min) 2 Oxygen Delivery Method Nasal Cannula Weight: 97.3 kg Body Mass Index (BMI) 33.0 Finger Stick Blood Glucose 188 Intake and Output for Last 24 Hours 10/18/20 10/19/20 10/20/20 23:59 23:59 23:59 Intake Total 305.25 / 305.25 600 / 720 290 / 290 Output Total 1225 / 1225 725 / 975 550 / 550 Balance -919.75 / -919.75 -125 / -255 -260 / -260 General: Alert, Cooperative HEENT: Atraumatic, Normocephalic Lungs: Clear to auscultation, Diminished Cardiovascular: Regular rate, No murmurs Abdomen: Bowel Sounds Present, Soft, Non Tender, Non-Distended Extremities: No clubbing, No cyanosis, Edema Skin: No rashes, No breakdown Laboratory Results 10/19/20 16:15: POC Glucose 244 H 10/19/20 21:06: POC Glucose 143 H 10/20/20 05:58: PT 30.8 H, INR 3.1 10/20/20 05:58: WBC 6.0, RBC 3.34 L, Hgb 8.5 L, Hct 28.5 L, MCV 85.3, MCH 25.4 L, MCHC 29.8 L, RDW Std Deviation 64.2 H, RDW Coeff of Yessi 21.0 H, Plt Count 183, MPV 9.9, Differential Comment SEE COMMENT 10/20/20 05:58: Sodium 138, Potassium 3.9, Chloride 105, Carbon Dioxide 26.0, Anion Gap 7, BUN 68 H, Creatinine 2.37 H, Estim Creat Clear Calc 24.45, Est GFR (MDRD) Af Amer 34 L, Est GFR (MDRD) Non-Af 28 L, BUN/Creatinine Ratio 28.7 H, Glucose 130 H, Calcium 8.7 10/20/20 06:35: POC Glucose 141 H 10/20/20 11:19: POC Glucose 153 H Current Medications Acetaminophen (Acetaminophen 325 Mg Tablet) 650 mg PO Q6H PRN PRN PRN Reason: Pain Score 1-10/Temp > 100.7 F Last Admin: 10/15/20 13:04 Dose: 650 mg Documented by: Albuterol Sulfate (Albuterol 2.5 Mg/3 Ml Vial.Neb.) 2.5 mg INHALATION Q2H PRN PRN PRN Reason: SOB/Wheezing Albuterol/Ipratropium (Ipratropium/Albuterol Sulfate 3 Ml Ampul.Neb) 3 ml INHALATION Q4H.RT [facility] Last Admin: 10/20/20 11:05 Dose: 3 ml Documented by: Amiodarone HCl ([facility] 200 Mg [facility]t) [facility] Last Admin: 10/20/20 08:40 Dose: 200 mg Documented by: Atorvastatin Calcium (Atorvastatin Calcium 80 Mg Tablet) 80 mg PO QHS [facility] Last Admin: 10/19/20 21:10 Dose: 80 mg Documented by: Benzonatate (Benzonatate 100 Mg Capsule) 100 mg PO TID PRN PRN PRN Reason: COUGH Last Admin: 10/15/20 13:04 Dose: 100 mg Documented by: Clopidogrel Bisulfate (Clopidogrel Bisulfate 75 Mg Tablet) 75 mg PO DAILY [facility] Last Admin: 10/20/20 08:40 Dose: 75 mg Documented by: Docusate Sodium (Docusate Sodium 100 Mg Capsule) 100 mg PO BID [facility] Last Admin: 10/20/20 08:41 Dose: Not Given Documented by: Finasteride (Finasteride 5 Mg Tablet) 5 mg PO DAILY [facility] Last Admin: 10/20/20 08:40 Dose: 5 mg Documented by: Furosemide (Furosemide 40 Mg/4 Ml Vial) 40 mg IV Q8 [facility] Last Admin: 10/20/20 05:37 Dose: 40 mg Documented by: Guaifenesin (Guaifenesin 1,200 Mg Tablet) 1,200 mg PO BID [facility] Last Admin: 10/20/20 08:40 Dose: 1,200 mg Documented by: Sodium Chloride () 500 mls @ 15 mls/hr IV PRN PRN PRN Reason: Blood Transfusion Sodium Chloride () 250 mls @ 15 mls/hr IV .[id number] PRN PRN Reason: Saline Flush Insulin Glargine (Insulin Glargine 100 Units/Ml Pen) 22 units SC QHS [facility] Last Admin: 10/19/20 21:10 Dose: 22 u Documented by: Insulin Human Lispro (Insulin Lispro 100 Unit/Ml Insuln.Pen) 0 unit SC [facility]; Protocol Last Admin: 10/20/20 11:21 Dose: 1 u Documented by: Levothyroxine Sodium (Levothyroxine 50 Mcg Tablet) 50 mcg PO DAILY@0600 [facility] Last Admin: 10/20/20 05:37 Dose: 50 mcg Documented by: Melatonin (Melatonin 10 Mg Tablet) 5 mg PO QHS PRN PRN Reason: SLEEP Last Admin: 10/19/20 22:00 Dose: 5 mg Documented by: Metoprolol Tartrate (Metoprolol Tartrate 25 Mg Tablet) 12.5 mg PO BID [facility] Last Admin: 10/20/20 08:42 Dose: Not Given Documented by: Midodrine (Midodrine Hcl 5 Mg Tablet) 10 mg PO TIDCM [facility] Last Admin: 10/20/20 11:23 Dose: 10 mg Documented by: Nutritional Formula (Lactose Free) (Glucerna Shake 120 Ml Liquid) 120 ml PO TIDCM [facility] Last Admin: 10/20/20 11:26 Dose: 120 ml Documented by: Ondansetron HCl (Ondansetron 4 Mg/2 Ml Vial) 4 mg IV Q8H PRN PRN PRN Reason: NAUSEA/VOMITING Last Admin: 10/14/20 01:15 Dose: 4 mg Documented by: Pantoprazole Sodium (Pantoprazole Sodium 20 Mg Tablet) 20 mg PO BID [facility] Last Admin: 10/20/20 08:40 Dose: 20 mg Documented by: Senna (Senna Tablet) 1 tablet PO DAILY [facility] Last Admin: 10/20/20 08:42 Dose: Not Given Documented by: Sodium Chloride (0.9% Saline Lock 10 Ml Syringe) 10 - 40 ml IV UD PRN PRN Reason: SALINE FLUSH Last Admin: 10/20/20 05:37 Dose: 20 ml Documented by: Tamsulosin HCl (Tamsulosin Hcl 0.4 Mg Capsule) 0.8 mg PO DAILY@0830 [facility] Last Admin: 10/20/20 08:40 Dose: 0.8 mg Documented by: Warfarin Sodium (Warfarin 1 Mg Tablet) 1 mg PO DAILY@1700 [facility] Last Admin: 10/19/20 16:20 Dose: 1 mg Documented by: Assessment/Plan Patient seen and examined independently. Data reviewed. I agree with the above note by the nurse practitioner. ASSESSMENT Acute blood loss anemia Hypotension-resolved with midodrine GI bleeding-resolved CKD stage IIIb-resolved HUONG Hyperkalemia-resolved Mild hyperbilirubinemia Supratherapeutic INR-resolved Anasarca Chronic anticoagulation Permanent atrial fibrillation Mechanical aortic valve HFrEF (EF 30%) secondary to ischemic cardiomyopathy--> decompensated Hyperlipidemia COPD EMERY CAD DM-2 Hypothyroidism GERD Constipation BPH History of hematuria Schizoaffective disorder Hyponatremia PLAN -Continue IV diuresis Patient was transfused a total of 3 units of packed red blood cells on 10/13/2020 -Hemoglobin remains stable at 8.3 -Continue Coumadin at 1mg daily -A.M. INR was 2.7 from 2.5 yesterday -Continue midodrine 10 mg 3 times daily help support blood pressure -Lasix 40 mg IV push 3 times daily -For to p.o. Lasix when able -Patient remains on 2L nasal cannula with stable oxygen saturations on 1 L nasal cannula between 93 and 95% -He had been on room air but desaturated to 89% and therefore was replaced to 1 L -Sodium remains stable -Serum creatinine continues to improve and today is 2.24 --> and is now in baseline range of 2-2.6 -Nephrology is following--> appreciate input -HUONG has resolved -No hemoglobin drop with the reinitiation of Plavix -will continue -Iron studies do not appear consistent with iron deficiency although patient was just transfused 3 units of packed red blood cells so these could be artificially skewed with recent transfusion -Need repeat iron studies in the future -Believe at this time the patient is excepting the severity of his illness as he keeps focus on ongoing home and being able to walk out of here rather than going back to a nursing facility for continued care. The likelihood of him being able to go back home ever I suspect is quite negligible. Plan for SNF upon discharge. Pt does not want [facility]. Inpatient E&M: 81248 Subs Hosp L2
[2020-10-20] MEDS: Insulin Lispro 100 UNIT/ML INSULN.PEN SC ×3 (11:21→21:46)
[2020-10-20 11:36] LABS: Bedside Glucose 153 mg/dL (70-110)
--- NOTE | 2020-10-20 12:12 | PN.RENAL_ITS ---
Patient Problems: Active and Suspected Problems Acute blood loss anemia (Acute) Systolic CHF (Acute) Symptomatic anemia (Acute) Congestive heart failure (Acute) Hypotension (Acute) Weakness (Acute) HUONG (acute kidney injury) (Acute) Supratherapeutic INR (Acute) Anticoagulation goal of INR 2.5 to 3.5 (Acute) Subjective: Following for acute kidney injury. The patient still has significant lower extremity edema. He gets short of breath with minimal activities. Patient denies current nausea, vomiting, chest pain. - Physical Exam Vitals/I&O's: Vital Signs Temp Pulse Resp BP Pulse Ox 98.1 F 90 22 H 121/69 H 96 10/20/20 12:00 10/20/20 12:00 10/20/20 12:00 10/20/20 12:00 10/20/20 12:00 Oxygen Flow Rate (L/min) 2 Oxygen Delivery Method Nasal Cannula Weight: 97.3 kg Body Mass Index (BMI) 33.0 Finger Stick Blood Glucose 188 Intake and Output for Last 24 Hours 10/18/20 10/19/20 10/20/20 23:59 23:59 23:59 Intake Total 305.25 / 305.25 600 / 720 290 / 290 Output Total 1225 / 1225 725 / 975 550 / 550 Balance -919.75 / -919.75 -125 / -255 -260 / -260 General: Alert, Oriented x3, Cooperative HEENT: Atraumatic, EOMI, Normocephalic Oral: Moist Mucosa Neck: Supple Lungs: Diminished Cardiovascular: Normal S1, Normal S2, No murmurs Abdomen: Bowel Sounds Present, Soft, Non Tender Extremities: Edema - 4+ lower extremity Laboratory Results 10/19/20 16:15: POC Glucose 244 H 10/19/20 21:06: POC Glucose 143 H 10/20/20 05:58: PT 30.8 H, INR 3.1 10/20/20 05:58: WBC 6.0, RBC 3.34 L, Hgb 8.5 L, Hct 28.5 L, MCV 85.3, MCH 25.4 L , MCHC 29.8 L, RDW Std Deviation 64.2 H, RDW Coeff of Yessi 21.0 H, Plt Count 183, MPV 9.9, Differential Comment SEE COMMENT 10/20/20 05:58: Sodium 138, Potassium 3.9, Chloride 105, Carbon Dioxide 26.0, Anion Gap 7, BUN 68 H, Creatinine 2.37 H, Estim Creat Clear Calc 24.45, Est GFR (MDRD) Af Amer 34 L, Est GFR (MDRD) Non-Af 28 L, BUN/Creatinine Ratio 28.7 H, Glucose 130 H, Calcium 8.7 10/20/20 06:35: POC Glucose 141 H 10/20/20 11:19: POC Glucose 153 H Current Medications Acetaminophen (Acetaminophen 325 Mg Tablet) 650 mg PO Q6H PRN PRN PRN Reason: Pain Score 1-10/Temp > 100.7 F Last Admin: 10/15/20 13:04 Dose: 650 mg Documented by: Albuterol Sulfate (Albuterol 2.5 Mg/3 Ml Vial.Neb.) 2.5 mg INHALATION Q2H PRN PRN PRN Reason: SOB/Wheezing Albuterol/Ipratropium (Ipratropium/Albuterol Sulfate 3 Ml Ampul.Neb) 3 ml INHALATION Q4H.RT [facility] Last Admin: 10/20/20 11:05 Dose: 3 ml Documented by: Amiodarone HCl (Amiodarone 200 Mg Tablet) 200 mg PO DAILYCM [facility] Last Admin: 10/20/20 08:40 Dose: 200 mg Documented by: Atorvastatin Calcium (Atorvastatin Calcium 80 Mg Tablet) 80 mg PO QHS [facility] Last Admin: 10/19/20 21:10 Dose: 80 mg Documented by: Benzonatate (Benzonatate 100 Mg Capsule) 100 mg PO TID PRN PRN PRN Reason: COUGH Last Admin: 10/15/20 13:04 Dose: 100 mg Documented by: Clopidogrel Bisulfate (Clopidogrel Bisulfate 75 Mg Tablet) 75 mg PO DAILY [facility] Last Admin: 10/20/20 08:40 Dose: 75 mg Documented by: Docusate Sodium (Docusate Sodium 100 Mg Capsule) 100 mg PO BID [facility] Last Admin: 10/20/20 08:41 Dose: Not Given Documented by: Finasteride (Finasteride 5 Mg Tablet) 5 mg PO DAILY [facility] Last Admin: 10/20/20 08:40 Dose: 5 mg Documented by: Furosemide (Furosemide 40 Mg/4 Ml Vial) 40 mg IV Q8 [facility] Last Admin: 10/20/20 05:37 Dose: 40 mg Documented by: Guaifenesin (Guaifenesin 1,200 Mg Tablet) 1,200 mg PO BID [facility] Last Admin: 10/20/20 08:40 Dose: 1,200 mg Documented by: Sodium Chloride () 500 mls @ 15 mls/hr IV PRN PRN PRN Reason: Blood Transfusion Sodium Chloride () 250 mls @ 15 mls/hr IV .[id number] PRN PRN Reason: Saline Flush Insulin Glargine (Insulin Glargine 100 Units/Ml Pen) 22 units SC QHS [facility] Last Admin: 10/19/20 21:10 Dose: 22 u Documented by: Insulin Human Lispro (Insulin Lispro 100 Unit/Ml Insuln.Pen) 0 unit SC [facility]; Protocol Last Admin: 10/20/20 11:21 Dose: 1 u Documented by: Levothyroxine Sodium (Levothyroxine 50 Mcg Tablet) 50 mcg PO DAILY@0600 [facility] Last Admin: 10/20/20 05:37 Dose: 50 mcg Documented by: Melatonin (Melatonin 10 Mg Tablet) 5 mg PO QHS PRN PRN Reason: SLEEP Last Admin: 10/19/20 22:00 Dose: 5 mg Documented by: Metoprolol Tartrate (Metoprolol Tartrate 25 Mg Tablet) 12.5 mg PO BID [facility] Last Admin: 10/20/20 08:42 Dose: Not Given Documented by: Midodrine (Midodrine Hcl 5 Mg Tablet) 10 mg PO TIDCM [facility] Last Admin: 10/20/20 11:23 Dose: 10 mg Documented by: Nutritional Formula (Lactose Free) (Glucerna Shake 120 Ml Liquid) 120 ml PO TIDCM [facility] Last Admin: 10/20/20 11:26 Dose: 120 ml Documented by: Ondansetron HCl (Ondansetron 4 Mg/2 Ml Vial) 4 mg IV Q8H PRN PRN PRN Reason: NAUSEA/VOMITING Last Admin: 10/14/20 01:15 Dose: 4 mg Documented by: Pantoprazole Sodium (Pantoprazole Sodium 20 Mg Tablet) 20 mg PO BID [facility] Last Admin: 10/20/20 08:40 Dose: 20 mg Documented by: Senna (Senna Tablet) 1 tablet PO DAILY [facility] Last Admin: 10/20/20 08:42 Dose: Not Given Documented by: Sodium Chloride (0.9% Saline Lock 10 Ml Syringe) 10 - 40 ml IV UD PRN PRN Reason: SALINE FLUSH Last Admin: 10/20/20 05:37 Dose: 20 ml Documented by: Tamsulosin HCl (Tamsulosin Hcl 0.4 Mg Capsule) 0.8 mg PO DAILY@0830 [facility] Last Admin: 10/20/20 08:40 Dose: 0.8 mg Documented by: Warfarin Sodium (Warfarin 1 Mg Tablet) 1 mg PO DAILY@1700 [facility] Last Admin: 10/19/20 16:20 Dose: 1 mg Documented by: Medical Necessity - Tobacco Use Smoking Status: Former smoker Assessment/Plan All Active Problems Acute blood loss anemia (Acute) Systolic CHF (Acute) Symptomatic anemia (Acute) Congestive heart failure (Acute) Hypotension (Acute) Weakness (Acute) HUONG (acute kidney injury) (Acute) Hyperkalemia (Acute) GI bleed (Resolved) Supratherapeutic INR (Acute) Gross hematuria (Acute) Anticoagulation goal of INR 2.5 to 3.5 (Acute) Facial droop (Resolved) 1. Acute kidney injury on chronic kidney disease stage IV. Baseline serum creatinine has been around 2.0 to 2.6 mg/dL. Suspect CKD may be secondary to diabetic kidney disease. HUONG is likely due to cardiorenal syndrome. Renal function has stabilized at baseline despite diuresis with furosemide. The patient was transitioned from furosemide drip to intermittent IV furosemide on 10/18/2020. The patient still appears to be fluid overloaded. Therefore, I would continue the current attempt to diurese the patient while monitoring his renal function, electrolytes, and acid?base status closely. There is no urgent need for kidney replacement therapy at this point. However, if the patient returns to the hospital repeatedly or quickly after discharge, starting hemodialysis for volume control may be one option. I agree with asking palliative care to see the patient as another option would be the patient comfortable if it is to the point of kidney replacement therapy. Continue IV furosemide for today. For home-going, I would use oral bumetanide which would work better in his case since he is hypoalbuminemic. We can also add metolazone in the future as well if the patient fails oral loop diuretic therapy. The current medications were reviewed, and they are all appropriately dosed for his estimated creatinine clearance. 2. Decompensated heart failure. The patient has heart failure with reduced ejection fraction. EF is 30%. The patient is on beta-rocael. He is not on AL inhibitor because of acute kidney injury. Continue current attempt to diurese the patient. 3. Hyponatremia. Resolved. Prior hyponatremia was likely due to heart failure. Continue to monitor serum sodium while we are diuresing the patient. 4. Anemia. Hemoglobin is stable at 8.5 g/dL. Iron studies are not accurate since the patient received blood transfusion recently. We will hold off on starting MARIAM since hemoglobin has not significantly decreased.
--- NOTE | 2020-10-20 14:31 | CASEMGMT ---
DARRON called Krissy at [facility] and let her know patient will likely come tomorrow. She thanked DARRON for the update. Naomi RAMIREZ
--- NOTE | 2020-10-20 14:57 | NURSING ---
Patient states to this RN during medication administration that he wants to be a FULL CODE. RN discussed same with patient. Patient expresses that if his heart stops, he wants CPR done and if he stops breathing he wants intubated. This RN notified patient's primary RN of same.
[2020-10-20 16:21] LABS: Bedside Glucose 214 mg/dL (70-110)
[2020-10-20] MEDS: Metoprolol Tartrate 25 MG Tablet 12.5 MG PO (21:46)
[2020-10-20] MEDS: Atorvastatin Calcium 80 MG Tablet PO (21:47)
[2020-10-20] MEDS: MELATONIN 10 MG TABLET 5 MG PO (21:53)
[2020-10-20 21:55] LABS: Bedside Glucose 166 mg/dL (70-110)
--- NOTE | 2020-10-20 23:41 | PCM.HOSP.N ---
Hospitalist Note Called to the bedside by Kaylie FIORE due to patient stating he wants to change his CODE STATUS. After discussing the differences between full code, DNRCC?a and DNRCC the patient is insistent on changing his CODE STATUS to a full code.
--- NOTE | 2020-10-20 23:44 | NURSING ---
Pt told this RN that he wants his purple wristband cut off and he doesn't want to be a DNR. Pt said that he wants to be a full code. This RN contacted [facility] to talk with pt, verify his wishes and and change his code status. MACARENA Wilson.
[2020-10-21] VITALS (14 sets, daily range): BP systolic 81–109; BP diastolic 54–71; PULSE 43–99; RESP 20–32; TEMP 35.8–36.7; O2SAT 95–98
[2020-10-21] MEDS: Ipratropium/Albuterol Sulfate 3 ML AMPUL.NEB INHALATION ×3 (03:15→11:58)
[2020-10-21 05:24] LABS: Hematocrit 30.8 % (40-54); Hemoglobin 9.1 g/dL (13.0-16.5); Mean Corp Hgb Conc 29.5 g/dL (32-36); Mean Corpuscular Hgb 25.6 pg (27.0-32.0); Mean Corpuscular Volume 86.8 fL (80-94); Mean Platelet Vol. 10.8 fl (6.2-12.0); POSITIVE MORPHOLOGY YES; Platelet Count 201 K/mm3 (150-450); RBC Distribution Width SD 65.7 fl (35.1-43.9); Red Blood Count 3.55 M/mm3 (4.6-6.2); White Blood Count 5.7 K/mm3 (4.4-11.0)
[2020-10-21 05:28] LABS: Scan Indicated on CBC? Y/N YES- FLAGS NOTED
[2020-10-21 05:34] LABS: International Normalized Ratio 3.3; Prothrombin Time (Protime)PT. 32.4 SECONDS (11.7-14.9)
[2020-10-21] MEDS: Levothyroxine 50 MCG Tablet PO (05:35)
[2020-10-21 05:39] LABS: Anion Gap 7 (5-15); BUN 65 mg/dL (7-18); Calcium,Total 8.7 mg/dL (8.5-10.1); Chloride 102 mmol/L (98-107); Creatinine, Serum 2.24 mg/dL (0.70-1.30); EST Glomerular Filtration Rate 30 mL/min (>60); Est Glom Filt Rate - Afr Amer 37 mL/min (>60); Estimated Creatinine Clearance 25.87 ml/min; Glucose 78 mg/dL (74-106); Potassium 3.9 mmol/L (3.5-5.1); Sodium Level 137 mmol/L (136-145)
[2020-10-21 05:52] LABS: Differential Comment SCANNED
[2020-10-21 06:40] LABS: Bedside Glucose 94 mg/dL (70-110)
[2020-10-21] MEDS: Midodrine HCl 5 MG Tablet 10 MG PO ×2 (09:37→11:00)
[2020-10-21] MEDS: Tamsulosin HCl 0.4 MG Capsule 0.8 MG PO (09:37)
[2020-10-21] MEDS: Amiodarone 200 MG Tablet PO (09:37)
[2020-10-21] MEDS: Clopidogrel Bisulfate 75 MG Tablet PO (09:40)
[2020-10-21] MEDS: guaiFENesin 1,200 MG Tablet 1200 MG PO (09:40)
[2020-10-21] MEDS: Pantoprazole Sodium 20 MG Tablet PO (09:41)
[2020-10-21] MEDS: Finasteride 5 MG Tablet PO (09:41)
--- NOTE | 2020-10-21 09:55 | PCM.EXTCARCO ---
- Diet 10/13/20 13:38 Diet: Cardiac - Heart Healthy Is pt able to select menu?: Yes - Routine Orders/Code Status Enema Type: Fleetz Enema Frequency: Daily PRN Suppository Type: Dulcolax 10mg Suppository Frequency: Daily PRN O2 Liters per Minute: 2-4 O2 Frequency: Continuous Keep PO Greater than or Equal to (%): 90 - On CPAP nightly Routine Lab Work: - - Weekly CBC, BMP. Daily INR until INR remained stable. Code Status: Full Code - Suggestions for Active Care Change Position every (hours): 2 Times a day to sit in chair: 3 - Therapies Physical Therapy: Eval and Treat Occupational Therapy: Eval and Treat - Problem/Diagnosis (1) Acute blood loss anemia Status: Acute (2) Chronic respiratory failure with hypoxia Status: Chronic (3) Systolic CHF Status: Acute (4) Chronic a-fib Status: Chronic (5) Coronary artery disease Status: Chronic Comment: stent placement 04/12 (6) Acute on chronic renal failure Status: Acute (7) Hypotension Status: Acute (8) Obstructive sleep apnea Status: Chronic (9) Schizoaffective disorder Status: Chronic (10) Supratherapeutic INR Status: Acute (11) mechanical prosthetic aortic valve replacement Status: Chronic (12) Hyperlipidemia Status: Chronic (13) DM type 2 (diabetes mellitus, type 2) Status: Chronic (14) Chronic obstructive lung disease Status: Chronic - Allergies/Procedures Done in Hospital Allergies/Adverse Reactions: Allergies ticagrelor [From Brilinta] Allergy (Verified 10/12/20 18:40) WEAKNESS Procedures: - - Renal ultrasound - Type of Care/Length of Stay Estimated LOS: Convalescent Care Less Than 30 days Type of Care Needed: Skilled Rehab Potential: Fair Prognosis: Fair - Additional Orders/Day of Discharge Additional Orders: Patient requested change of CODE STATUS day prior to discharge from DNR CCA to full code. Recommend ongoing discussion regarding this, palliative care to follow at discharge as well. H&P will serve as current which was dated: 10/12/20 Day of Discharge: 10/21/20 - Dietary and Speech Recommendations Dietitian Recommendations/Changes: Will continue cardiac diet; continue Glucerna TID; may benefit from further diet restrictions (protein/potassium/phos/fluid) given renal labs but will defer at this time d/t poor PO intake. Will add ensure pudding to pt meals for additional julian/pro if consumed. - Follow Up Care Primary Care Physician: Fredrick Conway MD [Primary Care Provider] - Please follow up with your Primary Care Physician in: 1 Week Please Follow Up With: Bryon Abdalla MD - Office scheduling appt When: 1 Week Please Follow Up With: Palliative - Established during admission When: To follow at DC- please notify
--- NOTE | 2020-10-21 10:18 | PN.RENAL_ITS ---
Patient Problems: Active and Suspected Problems Acute blood loss anemia (Acute) Systolic CHF (Acute) Symptomatic anemia (Acute) Congestive heart failure (Acute) Acute on chronic renal failure (Acute) Hypotension (Acute) Weakness (Acute) HUONG (acute kidney injury) (Acute) Supratherapeutic INR (Acute) Anticoagulation goal of INR 2.5 to 3.5 (Acute) Subjective: Following for acute kidney injury on chronic kidney disease. The patient feels better overall. He is less short of breath. He still complains of edema of the lower extremities and hands. - Physical Exam Vitals/I&O's: Vital Signs Temp Pulse Resp BP Pulse Ox 98.0 F 99 21 H 109/61 97 10/21/20 09:00 10/21/20 09:00 10/21/20 09:00 10/21/20 09:00 10/21/20 09:00 Oxygen Flow Rate (L/min) 2.5 Oxygen Delivery Method Nasal Cannula Weight: 95.3 kg Body Mass Index (BMI) 33.0 Finger Stick Blood Glucose 188 Intake and Output for Last 24 Hours 10/19/20 10/20/20 10/21/20 23:59 23:59 23:59 Intake Total 600 / 720 410 / 530 180 / 180 Output Total 725 / 975 825 / 975 300 / 300 Balance -125 / -255 -415 / -445 -120 / -120 General: Alert, Oriented x3, Cooperative HEENT: Atraumatic, Normocephalic Oral: Moist Mucosa Neck: Supple Lungs: Diminished - At bases Cardiovascular: Normal S1, Normal S2, No rub noted Abdomen: Bowel Sounds Present, Soft, Non Tender Extremities: Edema - 4+ lower extremity Musculoskeletal: No Tenderness to Palpation of Joints or Extremities Laboratory Results 10/20/20 11:19: POC Glucose 153 H 10/20/20 16:15: POC Glucose 214 H 10/20/20 21:45: POC Glucose 166 H 10/21/20 05:10: PT 32.4 H, INR 3.3 10/21/20 05:10: WBC 5.7, RBC 3.55 L, Hgb 9.1 L, Hct 30.8 L, MCV 86.8, MCH 25.6 L , MCHC 29.5 L, RDW Std Deviation 65.7 H, RDW Coeff of Yessi 21.0 H, Plt Count 201, MPV 10.8, Differential Comment SCANNED 10/21/20 05:10: Sodium 137, Potassium 3.9, Chloride 102, Carbon Dioxide 28.0, Anion Gap 7, BUN 65 H, Creatinine 2.24 H, Estim Creat Clear Calc 25.87, Est GFR (MDRD) Af Amer 37 L, Est GFR (MDRD) Non-Af 30 L, BUN/Creatinine Ratio 29.0 H, Glucose 78, Calcium 8.7 10/21/20 06:36: POC Glucose 94 Current Medications Acetaminophen (Acetaminophen 325 Mg Tablet) 650 mg PO Q6H PRN PRN PRN Reason: Pain Score 1-10/Temp > 100.7 F Last Admin: 10/15/20 13:04 Dose: 650 mg Documented by: Albuterol Sulfate (Albuterol 2.5 Mg/3 Ml Vial.Neb.) 2.5 mg INHALATION Q2H PRN PRN PRN Reason: SOB/Wheezing Albuterol/Ipratropium (Ipratropium/Albuterol Sulfate 3 Ml Ampul.Neb) 3 ml INHALATION Q4H.RT [facility] Last Admin: 10/21/20 07:35 Dose: 3 ml Documented by: Amiodarone HCl (Amiodarone 200 Mg Tablet) 200 mg PO DAILYCM [facility] Last Admin: 10/21/20 09:37 Dose: 200 mg Documented by: Atorvastatin Calcium (Atorvastatin Calcium 80 Mg Tablet) 80 mg PO QHS [facility] Last Admin: 10/20/20 21:47 Dose: 80 mg Documented by: Benzonatate (Benzonatate 100 Mg Capsule) 100 mg PO TID PRN PRN PRN Reason: COUGH Last Admin: 10/15/20 13:04 Dose: 100 mg Documented by: Bumetanide (Bumetanide 2 Mg Tablet) 1 mg PO BID [facility] Clopidogrel Bisulfate (Clopidogrel Bisulfate 75 Mg Tablet) 75 mg PO DAILY [facility] Last Admin: 10/21/20 09:40 Dose: 75 mg Documented by: Docusate Sodium (Docusate Sodium 100 Mg Capsule) 100 mg PO BID [facility] Last Admin: 10/21/20 09:41 Dose: Not Given Documented by: Finasteride (Finasteride 5 Mg Tablet) 5 mg PO DAILY [facility] Last Admin: 10/21/20 09:41 Dose: 5 mg Documented by: Guaifenesin (Guaifenesin 1,200 Mg Tablet) 1,200 mg PO BID [facility] Last Admin: 10/21/20 09:40 Dose: 1,200 mg Documented by: Sodium Chloride () 500 mls @ 15 mls/hr IV PRN PRN PRN Reason: Blood Transfusion Sodium Chloride () 250 mls @ 15 mls/hr IV .[id number] PRN PRN Reason: Saline Flush Insulin Glargine (Insulin Glargine 100 Units/Ml Pen) 22 units SC QHS [facility] Last Admin: 10/20/20 21:46 Dose: 22 u Documented by: Insulin Human Lispro (Insulin Lispro 100 Unit/Ml Insuln.Pen) 0 unit SC [facility]; Protocol Last Admin: 10/21/20 06:40 Dose: Not Given Documented by: Levothyroxine Sodium (Levothyroxine 50 Mcg Tablet) 50 mcg PO DAILY@0600 [facility] Last Admin: 10/21/20 05:35 Dose: 50 mcg Documented by: Melatonin (Melatonin 10 Mg Tablet) 5 mg PO QHS PRN PRN Reason: SLEEP Last Admin: 10/20/20 21:53 Dose: 5 mg Documented by: Metoprolol Tartrate (Metoprolol Tartrate 25 Mg Tablet) 12.5 mg PO BID [facility] Last Admin: 10/20/20 21:46 Dose: 12.5 mg Documented by: Midodrine (Midodrine Hcl 5 Mg Tablet) 10 mg PO TIDCM [facility] Last Admin: 10/21/20 09:37 Dose: 10 mg Documented by: Nutritional Formula (Lactose Free) (Glucerna Shake 120 Ml Liquid) 120 ml PO TIDCM [facility] Last Admin: 10/21/20 09:37 Dose: Not Given Documented by: Ondansetron HCl (Ondansetron 4 Mg/2 Ml Vial) 4 mg IV Q8H PRN PRN PRN Reason: NAUSEA/VOMITING Last Admin: 10/14/20 01:15 Dose: 4 mg Documented by: Pantoprazole Sodium (Pantoprazole Sodium 20 Mg Tablet) 20 mg PO BID [facility] Last Admin: 10/21/20 09:41 Dose: 20 mg Documented by: Senna (Senna Tablet) 1 tablet PO DAILY [facility] Last Admin: 10/21/20 09:41 Dose: Not Given Documented by: Sodium Chloride (0.9% Saline Lock 10 Ml Syringe) 10 - 40 ml IV UD PRN PRN Reason: SALINE FLUSH Last Admin: 10/20/20 21:50 Dose: 10 ml Documented by: Tamsulosin HCl (Tamsulosin Hcl 0.4 Mg Capsule) 0.8 mg PO DAILY@0830 [facility] Last Admin: 10/21/20 09:37 Dose: 0.8 mg Documented by: Warfarin Sodium (Warfarin 1 Mg Tablet) 1 mg PO DAILY@1700 [facility] Last Admin: 10/19/20 16:20 Dose: 1 mg Documented by: Medical Necessity - Tobacco Use Smoking Status: Former smoker Assessment/Plan All Active Problems Acute blood loss anemia (Acute) Systolic CHF (Acute) Symptomatic anemia (Acute) Congestive heart failure (Acute) Acute on chronic renal failure (Acute) Hypotension (Acute) Weakness (Acute) HUONG (acute kidney injury) (Acute) Hyperkalemia (Acute) GI bleed (Resolved) Supratherapeutic INR (Acute) Gross hematuria (Acute) Anticoagulation goal of INR 2.5 to 3.5 (Acute) Facial droop (Resolved) 1. Acute kidney injury on chronic kidney disease stage IV. Baseline serum creatinine has been around 2.0 to 2.6 mg/dL. Suspect CKD may be secondary to diabetic kidney disease. HUONG was likely due to cardiorenal syndrome. Renal function has stabilized at baseline despite diuresis with furosemide. The patient was transitioned from furosemide drip to intermittent IV furosemide on 10/18/2020. The patient still appears to be fluid overloaded. Therefore, I would continue the current attempt to diurese the patient while monitoring his renal function, electrolytes, and acid?base status closely. I agree with asking palliative care to see the patient as another option would be the patient comfortable if it is to the point of kidney replacement therapy. I discussed the option of dialysis versus palliative care/hospice with the patient again today. At this point, he would like everything done to keep him alive including dialysis. For home-going, I would use oral bumetanide which would work better in his case since he is hypoalbuminemic. We can use Bumex 1 mg p.o. twice daily. We can titrate the dose of diuretic based on effectiveness. We can also add metolazone in the future as well if the patient fails oral loop diuretic therapy. The patient has a high risk of readmission because of his underlying conditions particularly systolic dysfunction and chronic kidney disease. There is no urgent need for kidney replacement therapy at this point. However, if the patient returns to the hospital repeatedly or quickly after discharge, starting hemodialysis for volume control would be the next treatment option. The current medications were reviewed, and they are all appropriately dosed for his estimated creatinine clearance. 2. Decompensated heart failure. The patient has heart failure with reduced ejection fraction. EF is 30%. The patient is on beta-rocael. He is not on AL inhibitor because of acute kidney injury. Continue current attempt to diurese the patient as outlined above. 3. Hyponatremia. Resolved. Prior hyponatremia was likely due to heart failure. Continue to monitor serum sodium while we are diuresing the patient. 4. Anemia. Hemoglobin is better at 9.1 g/dL. Iron studies are not accurate since the patient received blood transfusion recently. We will hold off on starting MARIAM since hemoglobin has not slowly improved on its own. Above discussed with Cheryl Ramos NP
--- NOTE | 2020-10-21 10:19 | DS.PCM_ITS ---
<RichardCheryl [employer] WORKER - Last Filed: 10/21/20 10:27> Discharge Date and Diagnosis - Problem List Patient Problems: Active and Suspected Problems Acute blood loss anemia (Acute) Systolic CHF (Acute) Symptomatic anemia (Acute) Congestive heart failure (Acute) Acute on chronic renal failure (Acute) Hypotension (Acute) Weakness (Acute) HUONG (acute kidney injury) (Acute) Supratherapeutic INR (Acute) Anticoagulation goal of INR 2.5 to 3.5 (Acute) Date of Admission: 10/14/20 Date of Discharge: 10/21/20 - Primary Discharge Diagnosis Acute Problems: Active Problems 1. Acute kidney injury on chronic kidney disease stage IIIb 2. Acute blood loss anemia secondary to GI bleed 3. Supratherapeutic INR 4. Hypotension 5. Acute on chronic heart failure with reduced ejection fraction/ischemic cardiomyopathy, associated anasarca-EF 30%. 6. Permanent atrial fibrillation on chronic anticoagulation with Coumadin 7. History of mechanical aortic valve 8. Chronic COPD 9. EMERY 10. CAD 11. Type 2 diabetes mellitus 12. Hypothyroidism 13. GERD 14. BPH 15. Schizoaffective disorder - Secondary Discharge Diagnosis Chronic Problems: Chronic Problems Chronic respiratory failure with hypoxia (Chronic) Chronic a-fib (Chronic) Pulmonary hypertension (Chronic) mild Coronary artery disease (Chronic) stent placement 04/12 CKD (chronic kidney disease) stage 4, GFR 15-29 ml/min (Chronic) Dilated cardiomyopathy (Chronic) EF 30 % Obstructive sleep apnea (Chronic) Cerebrovascular disease (Chronic) Schizoaffective disorder (Chronic) Acute cerebrovascular accident (Chronic) CAD (coronary artery disease) (Chronic) mechanical prosthetic aortic valve replacement (Chronic) Hyperlipidemia (Chronic) DM type 2 (diabetes mellitus, type 2) (Chronic) Chronic obstructive lung disease (Chronic) Hospital Course and Treatment Imaging Results: Diagnostic Data Renal Ultrasound 10/15/20 07:27 IMPRESSION: Normal ultrasound of the kidneys. Electronically Signed: Cyrus Saeed MD at 15:40 EDT , Service support , Chest X-Ray 10/17/20 05:55 IMPRESSION: Similar interstitial and alveolar edema with mildly increased left pleural effusion. Electronically Signed: Cal Lu DO at 7:06 EDT , Service support , Dr. Abdalla- Nephrology Operations: None Procedures: None Summary of Care Provided: The patient is a 80 year old M admitted 10/12/2020 due to elevated INR and anemia. 1. Acute kidney injury on chronic kidney disease stage IIIb-nephrology consulted. Suspect cardiorenal syndrome. Renal ultrasound normal. Creatinine improved with IV Lasix. -17lb during admission. Plan for discharge on Bumex 1 mg twice daily. Follow-up with nephrology in 1 week. 2. Acute blood loss anemia secondary to GI bleed- Stool positive for occult blood. Status post 3 units PRBC. Continue PPI. Trend CBC. Remains stable. Coumadin and Plavix resumed. 3. Supratherapeutic INR-resolved following reversal. Coumadin resumed at lower dose. Continue Coumadin 1 mg daily. INR at discharge 3.3. Recommend daily INR for close monitoring until INR is consistently stable. 4. Hypotension-stable. Initiated on midodrine. 5. Acute on chronic heart failure with reduced ejection fraction/ischemic cardiomyopathy, associated anasarca-EF 30%. IV Lasix during admission. Transition to Bumex as noted above. 6. Permanent atrial fibrillation on chronic anticoagulation with Coumadin 7. History of mechanical aortic valve 8. Chronic COPD-as needed albuterol aerosol. 9. EMERY- continue home pap regimen. 10. CAD-continue statin, Plavix. Resume low-dose metoprolol with hold parameters. 11. Type 2 diabetes [id number] with sliding scale insulin. Continue home insulin regimen. 12. Hypothyroidism-continue Synthroid. 13. GERD-continue PPI. 14. BPH-on Flomax. 15. Schizoaffective disorder-continue home medication regimen. General: Alert, Oriented x3, Cooperative HEENT: Atraumatic, PERRLA, EOMI, Normocephalic Neck: Supple, No JVD, Negative Carotid Bruits Lungs: Clear to auscultation, Diminished Cardiovascular: Regular rate, No murmurs Abdomen: Bowel Sounds Present, Soft, Non Tender, Non-Distended Extremities: No clubbing, No cyanosis, Edema - +3 bilateral lower extremities Skin: No rashes, No breakdown Musculoskeletal: No Tenderness to Palpation of Joints or Extremities Neurological: Cranial nerves II-XII grossly intact, Neuro grossly intact Psych/Mental Status: Flat Affect Patient seen and examined prior to discharge. Physical assessment as noted above. Patient is stable for discharge with follow up recommendations as noted above. This patient was seen by BENEDICT Morocho under the supervision of Dr. Wei. Patient Problems: Active and Suspected Problems Acute blood loss anemia (Acute) Systolic CHF (Acute) Symptomatic anemia (Acute) Congestive heart failure (Acute) Acute on chronic renal failure (Acute) Hypotension (Acute) Weakness (Acute) HUONG (acute kidney injury) (Acute) Supratherapeutic INR (Acute) Anticoagulation goal of INR 2.5 to 3.5 (Acute) - Physical Exam Vitals/I&O's: Vital Signs Temp Pulse Resp BP Pulse Ox 98.0 F 99 21 H 109/61 97 10/21/20 09:00 10/21/20 09:00 10/21/20 09:00 10/21/20 09:00 10/21/20 09:00 Oxygen Flow Rate (L/min) 2.5 Oxygen Delivery Method Nasal Cannula Weight: 210 lb 1.608 oz Body Mass Index (BMI) 33.0 Finger Stick Blood Glucose 188 Intake and Output for Last 24 Hours 10/19/20 10/20/20 10/21/20 23:59 23:59 23:59 Intake Total 600 / 720 410 / 530 180 / 180 Output Total 725 / 975 825 / 975 300 / 300 Balance -125 / -255 -415 / -445 -120 / -120 Laboratory Results 10/20/20 11:19: POC Glucose 153 H 10/20/20 16:15: POC Glucose 214 H 10/20/20 21:45: POC Glucose 166 H 10/21/20 05:10: PT 32.4 H, INR 3.3 10/21/20 05:10: WBC 5.7, RBC 3.55 L, Hgb 9.1 L, Hct 30.8 L, MCV 86.8, MCH 25.6 L , MCHC 29.5 L, RDW Std Deviation 65.7 H, RDW Coeff of Yessi 21.0 H, Plt Count 201, MPV 10.8, Differential Comment SCANNED 10/21/20 05:10: Sodium 137, Potassium 3.9, Chloride 102, Carbon Dioxide 28.0, Anion Gap 7, BUN 65 H, Creatinine 2.24 H, Estim Creat Clear Calc 25.87, Est GFR (MDRD) Af Amer 37 L, Est GFR (MDRD) Non-Af 30 L, BUN/Creatinine Ratio 29.0 H, Glucose 78, Calcium 8.7 10/21/20 06:36: POC Glucose 94 Current Medications Acetaminophen (Acetaminophen 325 Mg Tablet) 650 mg PO Q6H PRN PRN PRN Reason: Pain Score 1-10/Temp > 100.7 F Last Admin: 10/15/20 13:04 Dose: 650 mg Documented by: Albuterol Sulfate (Albuterol 2.5 Mg/3 Ml Vial.Neb.) 2.5 mg INHALATION Q2H PRN PRN PRN Reason: SOB/Wheezing Albuterol/Ipratropium (Ipratropium/Albuterol Sulfate 3 Ml Ampul.Neb) 3 ml INHALATION Q4H.RT [facility] Last Admin: 10/21/20 07:35 Dose: 3 ml Documented by: Amiodarone HCl (Amiodarone 200 Mg Tablet) [facility] Last Admin: 10/21/20 09:37 Dose: 200 mg Documented by: Atorvastatin Calcium (Atorvastatin Calcium 80 Mg Tablet) 80 mg PO QHS [facility] Last Admin: 10/20/20 21:47 Dose: 80 mg Documented by: Benzonatate (Benzonatate 100 Mg Capsule) 100 mg PO TID PRN PRN PRN Reason: COUGH Last Admin: 10/15/20 13:04 Dose: 100 mg Documented by: Bumetanide (Bumetanide 2 Mg Tablet) 1 mg PO BID [facility] Clopidogrel Bisulfate (Clopidogrel Bisulfate 75 Mg Tablet) 75 mg PO DAILY [facility] Last Admin: 10/21/20 09:40 Dose: 75 mg Documented by: Docusate Sodium (Docusate Sodium 100 Mg Capsule) 100 mg PO BID [facility] Last Admin: 10/21/20 09:41 Dose: Not Given Documented by: Finasteride (Finasteride 5 Mg Tablet) 5 mg PO DAILY [facility] Last Admin: 10/21/20 09:41 Dose: 5 mg Documented by: Guaifenesin (Guaifenesin 1,200 Mg Tablet) 1,200 mg PO BID [facility] Last Admin: 10/21/20 09:40 Dose: 1,200 mg Documented by: Sodium Chloride () 500 mls @ 15 mls/hr IV PRN PRN PRN Reason: Blood Transfusion Sodium Chloride () 250 mls @ 15 mls/hr IV .[id number] PRN PRN Reason: Saline Flush Insulin Glargine (Insulin Glargine 100 Units/Ml Pen) 22 units SC QHS [facility] Last Admin: 10/20/20 21:46 Dose: 22 u Documented by: Insulin Human Lispro (Insulin Lispro 100 Unit/Ml Insuln.Pen) [facility]; Protocol Last Admin: 10/21/20 06:40 Dose: Not Given Documented by: Levothyroxine Sodium (Levothyroxine 50 Mcg Tablet) 50 mcg PO DAILY@0600 [facility] Last Admin: 10/21/20 05:35 Dose: 50 mcg Documented by: Melatonin (Melatonin 10 Mg Tablet) 5 mg PO QHS PRN PRN Reason: SLEEP Last Admin: 10/20/20 21:53 Dose: 5 mg Documented by: Metoprolol Tartrate (Metoprolol Tartrate 25 Mg Tablet) 12.5 mg PO BID [facility] Last Admin: 10/20/20 21:46 Dose: 12.5 mg Documented by: Midodrine (Midodrine Hcl 5 Mg Tablet) 10 mg PO TIDCM [facility] Last Admin: 10/21/20 09:37 Dose: 10 mg Documented by: Nutritional Formula (Lactose Free) (Glucerna Shake 120 Ml Liquid) 120 ml PO TIDCM [facility] Last Admin: 10/21/20 09:37 Dose: Not Given Documented by: Ondansetron HCl (Ondansetron 4 Mg/2 Ml Vial) 4 mg IV Q8H PRN PRN PRN Reason: NAUSEA/VOMITING Last Admin: 10/14/20 01:15 Dose: 4 mg Documented by: Pantoprazole Sodium (Pantoprazole Sodium 20 Mg Tablet) 20 mg PO BID [facility] Last Admin: 10/21/20 09:41 Dose: 20 mg Documented by: Senna (Senna Tablet) 1 tablet PO DAILY [facility] Last Admin: 10/21/20 09:41 Dose: Not Given Documented by: Sodium Chloride (0.9% Saline Lock 10 Ml Syringe) 10 - 40 ml IV UD PRN PRN Reason: SALINE FLUSH Last Admin: 10/20/20 21:50 Dose: 10 ml Documented by: Tamsulosin HCl (Tamsulosin Hcl 0.4 Mg Capsule) 0.8 mg PO DAILY@0830 [facility] Last Admin: 10/21/20 09:37 Dose: 0.8 mg Documented by: Warfarin Sodium (Warfarin 1 Mg Tablet) 1 mg PO DAILY@1700 [facility] Last Admin: 10/19/20 16:20 Dose: 1 mg Documented by: Home Medications: Medications to take at Discharge Amiodarone HCl 200 mg PO DAILY 06/05/20 Atorvastatin Calcium [Lipitor] 80 mg PO QHS 06/05/20 Budesonide Aerosol [Pulmicort Respules] 0.5 mg INHALATION BID 06/05/20 Clopidogrel Bisulfate [Plavix] 75 mg PO DAILY 06/05/20 Levothyroxine [Synthroid] 50 mcg PO DAILY 06/05/20 Omeprazole 20 mg PO BID 06/05/20 Docusate Sodium 100 mg PO BID 08/22/20 Nitroglycerin SL (ED ONLY) [Nitrostat] 0.4 mg SUBLINGUAL PRN PRN 08/22/20 Senna [Senokot] 1 tab PO DAILY 08/22/20 Mag Hydrox/Aluminum Hyd/Simeth [Alum-Mag Hydroxide-Simeth Susp] 30 ml PO Q4H PRN PRN 09/01/20 Acetaminophen [Tylenol Tablet] 325 mg PO Q6H PRN PRN tab 09/14/20 Finasteride [Proscar] 5 mg PO DAILY tab 09/14/20 Insulin Glargine [Lantus SoloStar Pen] 22 units SC QHS pen 09/14/20 Ipratropium/Albuterol Sulfate [Duoneb] 3 ml INHALATION Q4H.RT ampul.neb 09/14/20 Tamsulosin HCl [Flomax] 0.8 mg PO DAILY@0830 cap 09/14/20 Benzonatate [Tessalon Perle] 100 mg PO TID PRN PRN 10/12/20 Guaifenesin Dm [Robitussin Dm] 10 ml PO Q4H PRN 10/12/20 Insulin Lispro [Humalog] 0 unit SC ACHS 10/12/20 Melatonin 5 mg PO QHS PRN 10/12/20 Bumetanide [Bumex] 1 mg PO BID tablet 10/21/20 Guaifenesin [Mucinex] 1,200 mg PO BID tablet 10/21/20 Metoprolol Tartrate [Lopressor (beta rocael)] 12.5 mg PO BID tablet 10/21/20 Midodrine HCl [Proamatine] 10 mg PO TIDCM tablet 10/21/20 Warfarin [Coumadin] 1 mg PO DAILY@1700 tablet 10/21/20 Primary Care Physician: Fredrick Conway MD [Primary Care Provider] - Please follow up with your Primary Care Physician in: 1 Week Please Follow Up With: Bryon Abdalla MD - Office scheduling appt When: 1 Week Please Follow Up With: Palliative - Established during admission When: To follow at [place]- please notify Disposition: Assisted facility Minutes spent on discharge:: 35 Patient Condition:: Stable Medical Necessity - Tobacco Use Smoking Status: Former smoker Meaningful Use Info Meaningful Use Diagnoses (Choose all that apply): CHF - CHF AL/ARB ordered at discharge?: No Reason AL/ARB not ordered?: Hypotension Documented LVEF (%): 30 <Marino Wei - Last Filed: 10/21/20 11:11> Discharge Date and Diagnosis - Primary Discharge Diagnosis Acute Problems: Active Problems Acute blood loss anemia (Acute) Systolic CHF (Acute) Symptomatic anemia (Acute) Congestive heart failure (Acute) Acute on chronic renal failure (Acute) Hypotension (Acute) Weakness (Acute) HUONG (acute kidney injury) (Acute) Supratherapeutic INR (Acute) Anticoagulation goal of INR 2.5 to 3.5 (Acute) - Secondary Discharge Diagnosis Chronic Problems: Chronic Problems Chronic respiratory failure with hypoxia (Chronic) Chronic a-fib (Chronic) Pulmonary hypertension (Chronic) mild Coronary artery disease (Chronic) stent placement 04/12 CKD (chronic kidney disease) stage 4, GFR 15-29 ml/min (Chronic) Dilated cardiomyopathy (Chronic) EF 30 % Obstructive sleep apnea (Chronic) Cerebrovascular disease (Chronic) Schizoaffective disorder (Chronic) Acute cerebrovascular accident (Chronic) CAD (coronary artery disease) (Chronic) mechanical prosthetic aortic valve replacement (Chronic) Hyperlipidemia (Chronic) DM type 2 (diabetes mellitus, type 2) (Chronic) Chronic obstructive lung disease (Chronic) Hospital Course and Treatment Operations: None Procedures: None Summary of Care Provided: Patient seen and examined independently. Data reviewed. I agree with the above note by the nurse practitioner. The patient is a 80 year old M [] ASSESSMENT Acute blood loss anemia Hypotension-resolved with midodrine GI bleeding-resolved CKD stage IIIb-resolved HUONG Hyperkalemia-resolved Mild hyperbilirubinemia Supratherapeutic INR-resolved Anasarca Chronic anticoagulation Permanent atrial fibrillation Mechanical aortic valve HFrEF (EF 30%) secondary to ischemic cardiomyopathy--> decompensated Hyperlipidemia COPD EMERY CAD DM-2 Hypothyroidism GERD Constipation BPH History of hematuria Schizoaffective disorder Hyponatremia PLAN -Continue PO diuresis, dry weight around 89kg (currently 95.3 kg) Patient was transfused a total of 3 units of packed red blood cells on 10/13/2020 -Hemoglobin remains stable at 8.3 -Continue Coumadin at 1mg daily -Continue midodrine 10 mg 3 times daily help support blood pressure -Bumex 2mg BID -Patient remains on 2L nasal cannula with stable oxygen saturations on 1 L nasal cannula between 93 and 95% -He had been on room air but desaturated to 89% and therefore was replaced to 1 L -Sodium remains stable -Serum creatinine continues to improve and today is 2.24 --> and is now in baseline range of 2-2.6 -Nephrology is following--> appreciate input -HUONG has resolved -No hemoglobin drop with the reinitiation of Plavix -will continue -Iron studies do not appear consistent with iron deficiency although patient was just transfused 3 units of packed red blood cells so these could be artificially skewed with recent transfusion -Need repeat iron studies in the future - Physical Exam Vitals/I&O's: Vital Signs Temp Pulse Resp BP Pulse Ox 36.7 C 99 21 H 95/70 97 10/21/20 09:00 10/21/20 09:45 10/21/20 09:00 10/21/20 09:45 10/21/20 09:00 Oxygen Flow Rate (L/min) 2.5 Oxygen Delivery Method Nasal Cannula Weight: 95.3 kg Body Mass Index (BMI) 33.0 Finger Stick Blood Glucose 188 Intake and Output for Last 24 Hours 10/19/20 10/20/20 10/21/20 23:59 23:59 23:59 Intake Total 600 / 720 410 / 530 180 / 180 Output Total 725 / 975 825 / 975 300 / 300 Balance -125 / -255 -415 / -445 -120 / -120 General: Alert, No apparent distress HEENT: Atraumatic, Normocephalic Neck: No Nodes, Thyroid Normal Size and Texture Lungs: Clear to auscultation, Normal air movement, No rhonchi, No wheeze Cardiovascular: Regular rate, Regular Rhythm, Normal S1, Normal S2, No murmurs Abdomen: Bowel Sounds Present, Soft, Non Tender, Non-Distended, No Hepato- splenomegaly Extremities: No Calf Tenderness, Edema Laboratory Results 10/20/20 11:19: POC Glucose 153 H 10/20/20 16:15: POC Glucose 214 H 10/20/20 21:45: POC Glucose 166 H 10/21/20 05:10: PT 32.4 H, INR 3.3 10/21/20 05:10: WBC 5.7, RBC 3.55 L, Hgb 9.1 L, Hct 30.8 L, MCV 86.8, MCH 25.6 L , MCHC 29.5 L, RDW Std Deviation 65.7 H, RDW Coeff of Yessi 21.0 H, Plt Count 201, MPV 10.8, Differential Comment SCANNED 10/21/20 05:10: Sodium 137, Potassium 3.9, Chloride 102, Carbon Dioxide 28.0, Anion Gap 7, BUN 65 H, Creatinine 2.24 H, Estim Creat Clear Calc 25.87, Est GFR (MDRD) Af Amer 37 L, Est GFR (MDRD) Non-Af 30 L, BUN/Creatinine Ratio 29.0 H, Glucose 78, Calcium 8.7 10/21/20 06:36: POC Glucose 94 Current Medications Acetaminophen (Acetaminophen 325 Mg Tablet) 650 mg PO Q6H PRN PRN PRN Reason: Pain Score 1-10/Temp > 100.7 F Last Admin: 10/15/20 13:04 Dose: 650 mg Documented by: Albuterol Sulfate (Albuterol 2.5 Mg/3 Ml Vial.Neb.) 2.5 mg INHALATION Q2H PRN PRN PRN Reason: SOB/Wheezing Albuterol/Ipratropium (Ipratropium/Albuterol Sulfate 3 Ml Ampul.Neb) 3 ml INHALATION Q4H.RT EDD Last Admin: 10/21/20 07:35 Dose: 3 ml Documented by: Amiodarone HCl (Amiodarone 200 Mg Tablet) 200 mg PO DAILYCM [facility] Last Admin: 10/21/20 09:37 Dose: 200 mg Documented by: Atorvastatin Calcium (Atorvastatin Calcium 80 Mg Tablet) 80 mg PO QHS [facility] Last Admin: 10/20/20 21:47 Dose: 80 mg Documented by: Benzonatate (Benzonatate 100 Mg Capsule) 100 mg PO TID PRN PRN PRN Reason: COUGH Last Admin: 10/15/20 13:04 Dose: 100 mg Documented by: Bumetanide (Bumetanide 2 Mg Tablet) 1 mg PO BID [facility] Last Admin: 10/21/20 10:59 Dose: 1 mg Documented by: Clopidogrel Bisulfate (Clopidogrel Bisulfate 75 Mg Tablet) 75 mg PO DAILY [facility] Last Admin: 10/21/20 09:40 Dose: 75 mg Documented by: Docusate Sodium (Docusate Sodium 100 Mg Capsule) 100 mg PO BID [facility] Last Admin: 10/21/20 09:41 Dose: Not Given Documented by: Finasteride (Finasteride 5 Mg Tablet) 5 mg PO DAILY [facility] Last Admin: 10/21/20 09:41 Dose: 5 mg Documented by: Guaifenesin (Guaifenesin 1,200 Mg Tablet) 1,200 mg PO BID [facility] Last Admin: 10/21/20 09:40 Dose: 1,200 mg Documented by: Sodium Chloride () 500 mls @ 15 mls/hr IV PRN PRN PRN Reason: Blood Transfusion Sodium Chloride () 250 mls @ 15 mls/hr IV .[id number] PRN PRN Reason: Saline Flush Insulin Glargine (Insulin Glargine 100 Units/Ml Pen) [facility] Last Admin: 10/20/20 21:46 Dose: 22 u Documented by: Insulin Human Lispro (Insulin Lispro 100 Unit/Ml Insuln.Pen) 0 unit SC [facility]; Protocol Last Admin: 10/21/20 11:02 Dose: Not Given Documented by: Levothyroxine Sodium (Levothyroxine 50 Mcg Tablet) 50 mcg PO DAILY@0600 [facility] Last Admin: 10/21/20 05:35 Dose: 50 mcg Documented by: Melatonin (Melatonin 10 Mg Tablet) 5 mg PO QHS PRN PRN Reason: SLEEP Last Admin: 10/20/20 21:53 Dose: 5 mg Documented by: Metoprolol Tartrate (Metoprolol Tartrate 25 Mg Tablet) 12.5 mg PO BID [facility] Last Admin: 10/21/20 09:45 Dose: Not Given Documented by: Midodrine (Midodrine Hcl 5 Mg Tablet) 10 mg PO TIDCM [facility] Last Admin: 10/21/20 11:00 Dose: 10 mg Documented by: Nutritional Formula (Lactose Free) (Glucerna Shake 120 Ml Liquid) 120 ml PO TIDCM [facility] Last Admin: 10/21/20 10:59 Dose: 120 ml Documented by: Ondansetron HCl (Ondansetron 4 Mg/2 Ml Vial) 4 mg IV Q8H PRN PRN PRN Reason: NAUSEA/VOMITING Last Admin: 10/14/20 01:15 Dose: 4 mg Documented by: Pantoprazole Sodium (Pantoprazole Sodium 20 Mg Tablet) 20 mg PO BID [facility] Last Admin: 10/21/20 09:41 Dose: 20 mg Documented by: Senna (Senna Tablet) 1 tablet PO DAILY [facility] Last Admin: 10/21/20 09:41 Dose: Not Given Documented by: Sodium Chloride (0.9% Saline Lock 10 Ml Syringe) 10 - 40 ml IV UD PRN PRN Reason: SALINE FLUSH Last Admin: 10/20/20 21:50 Dose: 10 ml Documented by: Tamsulosin HCl (Tamsulosin Hcl 0.4 Mg Capsule) 0.8 mg PO DAILY@0830 [facility] Last Admin: 10/21/20 09:37 Dose: 0.8 mg Documented by: Warfarin Sodium (Warfarin 1 Mg Tablet) 1 mg PO DAILY@1700 [facility] Last Admin: 10/19/20 16:20 Dose: 1 mg Documented by: Discharge Diet: Low fat/ Low Cholesterol Disposition: Assisted facility Patient Condition:: Stable Medical Necessity - Tobacco Use Smoking Status: Former smoker Meaningful Use Info Meaningful Use Diagnoses (Choose all that apply): CHF - CHF AL/ARB ordered at discharge?: No Reason AL/ARB not ordered?: Hypotension Documented LVEF (%): 30 Inpatient E&M: [id number] Disch Hosp
--- NOTE | 2020-10-21 10:36 | PHA.DC.MR ---
Pharmacy Service has performed discharge medication reconciliation for this patient. The patient's discharge medication list was reviewed for discrepancies and discrepancies were resolved. Home Medications Amiodarone HCl 200 mg PO DAILY 06/05/20 Atorvastatin Calcium [Lipitor] 80 mg PO QHS 06/05/20 Budesonide Aerosol [Pulmicort Respules] 0.5 mg INHALATION BID 06/05/20 Clopidogrel Bisulfate [Plavix] 75 mg PO DAILY 06/05/20 Levothyroxine [Synthroid] 50 mcg PO DAILY 06/05/20 Omeprazole 20 mg PO BID 06/05/20 Docusate Sodium 100 mg PO BID 08/22/20 Nitroglycerin SL (ED ONLY) [Nitrostat] 0.4 mg SUBLINGUAL PRN PRN 08/22/20 Senna [Senokot] 1 tab PO DAILY 08/22/20 Mag Hydrox/Aluminum Hyd/Simeth [Alum-Mag Hydroxide-Simeth Susp] 30 ml PO Q4H PRN PRN 09/01/20 Acetaminophen [Tylenol Tablet] 325 mg PO Q6H PRN PRN tab 09/14/20 Finasteride [Proscar] 5 mg PO DAILY tab 09/14/20 Insulin Glargine [Lantus SoloStar Pen] 22 units SC QHS pen 09/14/20 Ipratropium/Albuterol Sulfate [Duoneb] 3 ml INHALATION Q4H.RT ampul.neb 09/14/20 Tamsulosin HCl [Flomax] 0.8 mg PO DAILY@0830 cap 09/14/20 Benzonatate [Tessalon Perle] 100 mg PO TID PRN PRN 10/12/20 Guaifenesin Dm [Robitussin Dm] 10 ml PO Q4H PRN 10/12/20 Insulin Lispro [Humalog] 0 unit SC ACHS 10/12/20 Melatonin 5 mg PO QHS PRN 10/12/20 Bumetanide [Bumex] 1 mg PO BID tablet 10/21/20 Guaifenesin [Mucinex] 1,200 mg PO BID tablet 10/21/20 Metoprolol Tartrate [Lopressor (beta rocael)] 12.5 mg PO BID tablet 10/21/20 Midodrine HCl [Proamatine] 10 mg PO TIDCM tablet 10/21/20 Warfarin [Coumadin] 1 mg PO DAILY@1700 tablet 10/21/20
--- NOTE | 2020-10-21 10:57 | CASEMGMT ---
Orders faxed to [facility]. DARRON arranged for patient to get picked up at 1300 via [employer] van. SW notified RN, secretary specialist, patient, and Tisha at [facility]. DARRON also notified patient's friend Feng per patient's request. Plan: d/c to [facility] under skilled level of care. [facility] transported via [employer] van. Naomi RAMIREZ
[2020-10-21] MEDS: Glucerna Shake 120 ML LIQUID PO (10:59)
[2020-10-21] MEDS: Bumetanide 2 MG Tablet 1 MG PO (10:59)
[2020-10-21 11:05] LABS: Bedside Glucose 113 mg/dL (70-110)
== END 2020-10-21 13:19 | disposition skilled nursing facility (03) | DRG 682 ==
LOC: ED 20:26 → PCU 21:01
PROVIDERS: Family Medicine; Internal Medicine; Nurse Practitioner Family; Physician Assistant; Admitting Provider Family Medicine; Emergency Provider Emergency Medicine; PCP Family Medicine
DX: N17.0 Acute kidney failure with tubular necrosis (principal); I50.23 Acute on chronic systolic (congestive) heart failure; D62 Acute posthemorrhagic anemia; K92.2 Gastrointestinal hemorrhage, unspecified; I48.21 Permanent atrial fibrillation; E87.1 Hypo-osmolality and hyponatremia; N18.32 Chronic kidney disease, stage 3b; I95.9 Hypotension, unspecified; Z95.2 Presence of prosthetic heart valve; J44.9 Chronic obstructive pulmonary disease, unspecified; G47.33 Obstructive sleep apnea (adult) (pediatric); I25.10 Atherosclerotic heart disease of native coronary artery without angina pectoris; E11.22 Type 2 diabetes mellitus with diabetic chronic kidney disease; E03.9 Hypothyroidism, unspecified; K21.9 Gastro-esophageal reflux disease without esophagitis; N40.0 Benign prostatic hyperplasia without lower urinary tract symptoms; F25.9 Schizoaffective disorder, unspecified; I25.5 Ischemic cardiomyopathy; Z79.01 Long term (current) use of anticoagulants; Z86.73 Personal history of transient ischemic attack (TIA), and cerebral infarction without residual deficits; Z87.891 Personal history of nicotine dependence; E66.9 Obesity, unspecified; Z79.4 Long term (current) use of insulin; Z79.899 Other long term (current) drug therapy; Z68.34 Body mass index [BMI] 34.0-34.9, adult; E78.5 Hyperlipidemia, unspecified; Z66 Do not resuscitate; R53.81 Other malaise; D63.1 Anemia in chronic kidney disease
CPT/HCPCS: 36415; 71045; 76770; 80048; 80053; 82274; 82550; 82570; 82728; 82962; 83540; 83550; 83605; 83735; 83880; 84484; 85025; 85027; 85610; 85730; 86850; 86900; 86901; 86920; 87205; 87426; 93005; 94640; 94667; 94668; 94762; 97110; 97116; 97163; 97166; 97530; 97535; 99285; J7030; J7040; J7050; P9016; A4216; J1940; J2405; J3490

== ENCOUNTER 2020-11-01 09:19 | Inpatient (IN) | payer MEDICARE, MEDICAID, SELFPAY ==
[2020-10-12 21:27] VITALS: BMI 33.0
[2020-11-01] VITALS (13 sets, daily range): BP systolic 87–135; BP diastolic 51–65; PULSE 64–86; RESP 18–28; TEMP 35.7–36.8; O2SAT 98–100; BMI 33.1; BMI 32.3
--- NOTE | 2020-11-01 09:25 | ED.DCSUM_ITS ---
History of Present Illness Chief Complaint: Shortness of Breath Informant: Patient Narrative: 80-year-old male with history of CHF presenting for evaluation given he has an 8 pound weight gain as well as lower extremity edema which is worsening. Patient states that he does not have any chest pain or shortness of breath. He is on Coumadin currently and his last admission he had a GI bleed and a Coumadin coagulopathy. Patient denies any fever, chills, nausea, vomiting, diarrhea. He denies black or bloody stool. - Past Medical History (1) Acute blood loss anemia Status: Chronic (2) Congestive heart failure Status: Chronic (3) Hypotension Status: Chronic Past Medical History - Allergies and Home Meds Allergies/Adverse Reactions: Allergies ticagrelor [From Brilinta] Allergy (Verified 10/12/20 18:40) WEAKNESS Past Medical History: - - Hypertension, hyperlipidemia, CHF, diabetes type 2, hypothyroidism, BPH Surgical History: cholecystectomy, - - Bladder resection and aortic valve replacement Lives: Alf Smoking Status: Former smoker Alcohol: None Drugs: None - Family History Maternal Family History: Reports: Unknown - He does not know any biological history of either parent as he was raised in an orphanage Review of Systems General: Denies: Chills, Fever, Sweats Eyes: Denies: Visual changes - bilaterally, Diplopia ENT: Denies: Rhinorrhea, Sore throat Cardiovascular: Denies: Chest pain, Palpitations Respiratory: Denies: Dyspnea, Cough, Dyspnea on exertion Gastrointestinal: Denies: Abdominal pain, Nausea, Vomiting, Diarrhea, Melena, Hematochezia Genitourinary: Denies: Dysuria, Hematuria, Frequency Musculoskeletal: Reports: Swelling. Denies: Back pain, Extremity Pain Skin: Denies: Rash, Wounds Neurological: Denies: Headache, Weakness, Numbness Psych: Reports: -, -. Denies: Depression, Anxiety, Suicidal thoughts, Suicidal ideations Physical Exam Vital Signs/Narrative: Vital Signs Temp Pulse Resp BP Pulse Ox 11/01/20 09:20 96.8 F L 75 24 H 93/60 100 Inital Vital Signs reviewed: Yes General: Well nourished, No Acute Distress Head: Normocephalic, Atraumatic Eyes: Perrl, EOMI ENT: Moist mucous membranes, No rhinorrhea Cardiovascular: Regular rate, Regular rhythm Respiratory: No distress, CTA bilaterally Abdomen: Soft, Nontender Extremities: Tenderness, Edema Skin: Normal color, No rash Neurological: Alert, Oriented x3, Cranial nerves II-XII grossly intact Psychological: Normal affect, Normal Mood Diagnostic/Tx/Re-eval Clinical Impression(s) from Imaging Studies Chest X-Ray 11/01/20 09:25 IMPRESSION: Bilateral pneumonia, pulmonary edema, ARDS with small bilateral pleural effusions. Electronically Signed: Ryan Darling MD at 10:17 EDT Tel , Service support , Laboratory Data 11/01/20 11/01/20 11/01/20 09:40 09:40 09:40 WBC 5.4 RBC 3.46 L Hgb 8.8 L Hct 29.6 L MCV 85.5 MCH 25.4 L MCHC 29.7 L RDW Std Deviation 66.3 H RDW Coeff of Yessi 21.5 H Plt Count 176 MPV 10.2 Immature Gran % (Auto) 0.200 Neut % (Auto) 67.8 Lymph % (Auto) 20.0 Andrews % (Auto) 9.4 Eos % (Auto) 2.2 Baso % (Auto) 0.4 Absolute Neuts (auto) 3.7 Absolute Lymphs (auto) 1.08 Nucleated RBC % 0 Anisocytosis 2+ Crenated Cell 2+ PT INR Sodium 136 Potassium 4.2 Chloride 102 Carbon Dioxide 28.0 Anion Gap 6 BUN 76 H Creatinine 2.95 H Estim Creat Clear Calc 19.64 Est GFR (MDRD) Af Amer 27 L Est GFR (MDRD) Non-Af 22 L BUN/Creatinine Ratio 25.8 H Glucose 71 L Calcium 9.0 Troponin I 0.024 B-Natriuretic Peptide 851.2 H 11/01/20 09:40 WBC RBC Hgb Hct MCV MCH MCHC RDW Std Deviation RDW Coeff of Yessi Plt Count MPV Immature Gran % (Auto) Neut % (Auto) Lymph % (Auto) Andrews % (Auto) Eos % (Auto) Baso % (Auto) Absolute Neuts (auto) Absolute Lymphs (auto) Nucleated RBC % Anisocytosis Crenated Cell PT 42.6 H INR 4.6 H* Sodium Potassium Chloride Carbon Dioxide Anion Gap BUN Creatinine Estim Creat Clear Calc Est GFR (MDRD) Af Amer Est GFR (MDRD) Non-Af BUN/Creatinine Ratio Glucose Calcium Troponin I B-Natriuretic Peptide - Medical Decision Making 80-year-old male presenting with 8 pound weight gain and lower extremity edema which is worsening. He is not requiring more oxygen and is at his baseline 3 L O2 nasal cannula. He denies chest pain or shortness of breath which is significant. Patient had EKG performed on arrival which is sinus rhythm at 74 bpm with occasional PVCs and does appear to be slightly widened complex. No ST elevations or depressions. Patient had chest x-ray interpreted by myself to show bilateral pulmonary edema and effusions. Radiology does agree with this but also feels the patient may have large bilateral pneumonia. Given patient has no leukocytosis or shortness of breath I will hold off on treatment with antibiotics at this time. CBC shows white blood cell count of 5.4, hemoglobin 8.8, platelets 176. PT 42.6, INR 4.6. Creatinine is 2.95 and is near his baseline however he does appear to go higher and lower than this at times. Troponin is negative. BNP is 851. Given patient's INR is elevated I do not suspect PE and would not obtain CT imaging. Patient's hemoglobin is about where he was previously. Patient discussed with hospitalist and will be admitted to monitor INR as well as treat CHF. Patient minimal this plan. Impression: 1. Supratherapeutic INR 2. CHF exacerbation ED Disposition - Plan for ED Patient: Disposition: Acute Care Hospital [facility]
--- NOTE | 2020-11-01 09:25 | RAD_ITS ---
STUDY: X-RAY CHEST REASON FOR EXAM: Male, 80 years old. chest pain TECHNIQUE: Single AP portable view of the chest. COMPARISON: 10/17/2020 FINDINGS: Status post heart valve replacement. Alveolar opacity in both lungs consistent with bilateral pneumonia, pulmonary edema, or ARDS. Small bilateral pleural effusions. There is moderate cardiac enlargement. Normal mediastinum and roberth. Normal visualized pulmonary arteries. Normal visualized aortic arch and descending thoracic aorta. Normal visualized thoracic spine. Normal visualized ribs, clavicles, and shoulders. There is no demonstrated abnormality of the visualized soft tissue structures of the upper abdomen. RAD/Chest 1 View (Portable) IMPRESSION: Bilateral pneumonia, pulmonary edema, ARDS with small bilateral pleural effusions. Electronically Signed: Ryan Darling MD at 10:17 EDT Tel , Service support ,
--- NOTE | 2020-11-01 09:25 | EKG12_ITS ---
Test Reason : SOB Blood Pressure : / mmHG Vent. Rate : 074 BPM Atrial Rate : 087 BPM P-R Int : 000 ms QRS Dur : 180 ms QT Int : 474 ms P-R-T Axes : 000 -71 073 degrees QTc Int : 526 ms Atrial Flutter with A-V dissociation and Wide QRS rhythm with occasional Premature ventricular compl exes Left axis deviation Non-specific intra-ventricular conduction block Possible Lateral infarct , age undetermined Abnormal ECG Confirmed by EVER RESENDEZ, SATINDER ([id number]), staff editor DEVAN LOVE ([id number]) on 11/02/2020 2:20:29 PM Referred By: SERVANDO Confirmed By:SATINDER CURTIS MD
[2020-11-01] MEDS: Aspirin 81 MG TAB.CHEW 324 MG PO (09:45)
[2020-11-01 10:04] LABS: Absolute Lymphocyte Count 1.08 X10^3/uL (0.83-4.51); Absolute Neutrophil Count 3.7 X10^3/uL (2.0-7.7); Basophil# 0.02 X10^3/uL; Basophil% 0.4 % (0-1); Eosinophil# 0.12 X10^3/uL; Eosinophils% 2.2 % (0-5); Hematocrit 29.6 % (40-54); Hemoglobin 8.8 g/dL (13.0-16.5); Lymphocyte # 1.08 X10^3/ul (4.0); Mean Corp Hgb Conc 29.7 g/dL (32-36); Mean Corpuscular Hgb 25.4 pg (27.0-32.0); Mean Corpuscular Volume 85.5 fL (80-94); Mean Platelet Vol. 10.2 fl (6.2-12.0); Monocyte# 0.51 X10^3/uL; Monocyte% 9.4 % (0-10); NRBC Flagged by Analyzer 0 % (0-5); Neutrophil # 3.66 X10^3/uL (2.7-7.7); Neutrophil % 67.8 % (47-70); POSITIVE MORPHOLOGY YES; Platelet Count 176 K/mm3 (150-450); RBC Distribution Width CV 21.5 % (11.6-14.6); RBC Distribution Width SD 66.3 fl (35.1-43.9); Red Blood Count 3.46 M/mm3 (4.6-6.2); White Blood Count 5.4 K/mm3 (4.4-11.0)
[2020-11-01 10:11] LABS: Differential Indicated SCAN CRITERIA MET
[2020-11-01 10:16] LABS: International Normalized Ratio 4.6; Prothrombin Time (Protime)PT. 42.6 SECONDS (11.7-14.9)
[2020-11-01 10:23] LABS: Anion Gap 6 (5-15); BUN 76 mg/dL (7-18); BUN/Creat Ratio 25.8 RATIO (10-20); Chloride 102 mmol/L (98-107); Creatinine, Serum 2.95 mg/dL (0.70-1.30); EST Glomerular Filtration Rate 22 mL/min (>60); Est Glom Filt Rate - Afr Amer 27 mL/min (>60); Estimated Creatinine Clearance 19.64 ml/min; Glucose 71 mg/dL (74-106); Potassium 4.2 mmol/L (3.5-5.1); Sodium Level 136 mmol/L (136-145)
[2020-11-01 10:32] LABS: BNP,B-Type NATRIURETIC PEPTIDE 851.2 pg/mL (0-100)
[2020-11-01 10:47] LABS: Anisocytosis 2+; Crenated RBC 2+
--- NOTE | 2020-11-01 12:09 | PCM.HP.STD ---
Problem List (1) Acute blood loss anemia Status: Resolved (2) Congestive heart failure Status: Chronic (3) Hypotension Status: Chronic (4) Acute on chronic renal failure Status: Acute (5) Anticoagulation goal of INR 2.5 to 3.5 Status: Chronic (6) Gross hematuria Status: Resolved Comment: due to prostatitis (7) Supratherapeutic INR Status: Acute (8) Systolic CHF Status: Acute Qualifiers: Heart failure chronicity: acute on chronic Qualified Code(s): I50.23 - Acute on chronic systolic (congestive) heart failure (9) CAD (coronary artery disease) Status: Chronic (10) CKD (chronic kidney disease) stage 4, GFR 15-29 ml/min Status: Chronic (11) Cerebrovascular disease Status: Chronic (12) Chronic a-fib Status: Chronic (13) Chronic obstructive lung disease Status: Chronic (14) Chronic respiratory failure with hypoxia Status: Chronic (15) Coronary artery disease Status: Chronic Comment: stent placement 04/12 (16) DM type 2 (diabetes mellitus, type 2) Status: Chronic (17) Dilated cardiomyopathy Status: Chronic Comment: EF 30 % (18) Hyperlipidemia Status: Chronic (19) Obstructive sleep apnea Status: Chronic (20) Pulmonary hypertension Status: Chronic Comment: mild (21) Schizoaffective disorder Status: Chronic (22) mechanical prosthetic aortic valve replacement Status: Chronic (23) GI bleed Status: Resolved History of Present Illness Date of Admission: 11/01/20 Chief Complaint: Shortness of breath, increased swelling. The patient is a 80 year old M who presents from SNF due to shortness of breath, increased swelling and weight gain. Patient recently discharged 10/21/2020 following treatment for acute kidney injury and heart failure. Patient states his swelling and weight gain happened overnight. States he woke up this morning and felt very swollen. Spoke with SNF OCCUPATIONAL THERAPY TECHNICIAN who states patient has had slow weight gain over the past week and a half despite being on Bumex, he had recent follow-up with nephrology as well. Patient has been wearing 3 L nasal cannula continuously at [facility]. Oxygen 98% on 3 L nasal cannula and on admission. Per records, patient weighed to 10 pounds 10/21/2020 when he was discharged. Admission weight 212 pounds. Palliative medicine has been following patient for symptom management. Discussed with patient the severity of his illness and long-term prognosis is guarded. Patient focuses on getting better and does not seem to grasp the information provided. He has a past medical history of chronic kidney disease stage IV, history of GI bleed, chronic heart failure with reduced ejection fraction/ischemic cardiomyopathy, permanent atrial fibrillation on chronic anticoagulation with Coumadin, history of mechanical or aortic valve, chronic COPD, EMERY, CAD, type 2 diabetes mellitus, hypothyroidism, GERD, BPH, schizoaffective disorder. Past Medical History Past Medical History (Chronic Problems): Chronic Problems Chronic respiratory failure with hypoxia (Chronic) Chronic a-fib (Chronic) Pulmonary hypertension (Chronic) mild Coronary artery disease (Chronic) stent placement 04/12 Congestive heart failure (Chronic) Hypotension (Chronic) CKD (chronic kidney disease) stage 4, GFR 15-29 ml/min (Chronic) Dilated cardiomyopathy (Chronic) EF 30 % Obstructive sleep apnea (Chronic) Cerebrovascular disease (Chronic) Schizoaffective disorder (Chronic) Anticoagulation goal of INR 2.5 to 3.5 (Chronic) CAD (coronary artery disease) (Chronic) mechanical prosthetic aortic valve replacement (Chronic) Hyperlipidemia (Chronic) DM type 2 (diabetes mellitus, type 2) (Chronic) Chronic obstructive lung disease (Chronic) Allergies ticagrelor [From Brilinta] Allergy (Verified 10/12/20 18:40) WEAKNESS Home Medications: Ambulatory Orders Medication Instructions Recorded Amiodarone HCl 200 mg PO DAILY 06/05/20 Atorvastatin Calcium [Lipitor] 80 mg PO QHS 06/05/20 Budesonide Aerosol [Pulmicort 0.5 mg INHALATION BID 06/05/20 Respules] Clopidogrel Bisulfate [Plavix] 75 mg PO DAILY 06/05/20 Levothyroxine [Synthroid] 50 mcg PO DAILY 06/05/20 Omeprazole 20 mg PO BID 06/05/20 Docusate Sodium 100 mg PO BID 08/22/20 Nitroglycerin SL (ED ONLY) 0.4 mg SUBLINGUAL PRN PRN 08/22/20 [Nitrostat] Senna [Senokot] 1 tab PO DAILY 08/22/20 Mag Hydrox/Aluminum Hyd/Simeth 30 ml PO Q4H PRN PRN 09/01/20 [Alum-Mag Hydroxide-Simeth Susp] Finasteride [Proscar] 5 mg PO DAILY tab 09/14/20 Insulin Glargine [Lantus SoloStar 22 units SC QHS pen 09/14/20 Pen] Ipratropium/Albuterol Sulfate 3 ml INHALATION Q4H.RT ampul.neb 09/14/20 [Duoneb] Tamsulosin HCl [Flomax] 0.8 mg PO DAILY@0830 cap 09/14/20 Benzonatate [Tessalon Perle] 100 mg PO TID PRN PRN 10/12/20 Insulin Lispro [Humalog] 0 unit SC ACHS 10/12/20 Melatonin 5 mg PO QHS PRN 10/12/20 Bumetanide [Bumex] 1 mg PO BID tablet 10/21/20 Guaifenesin [Mucinex] 1,200 mg PO BID tablet 10/21/20 Metoprolol Tartrate [Lopressor 12.5 mg PO BID tablet 10/21/20 (beta rocael)] Midodrine HCl [Proamatine] 5 mg PO TIDCM 11/01/20 Oxycodone [Oxyir] 2.5 mg PO Q4H PRN PRN 11/01/20 Warfarin [Coumadin] 2.5 mg PO DAILY@1700 11/01/20 Surgical History: cholecystectomy, - - Bladder resection and aortic valve replacement Psychiatric History: - - Schizoaffective disorder Lives: [facility] Smoking Status: Former smoker Alcohol: None Drugs: None - *Family History Maternal History Items: - - Denies known maternal medical history including cardiac history. Paternal History Items: - - Denies known paternal medical history including cardiac history. Review of Systems Constitutional: Reports: Weight Change - Weight gain. Denies: Chills, Fever HEENT: Denies: Head Aches, Sinus Congestion, Sinus Drainage Cardiovascular: Reports: Edema - Lower extremities, anasarca. Denies: Chest Pain, Palpitations Respiratory: Reports: Shortness of Breath. Denies: Cough, Sputum production, Wheezing Gastrointestinal: Denies: Abdominal Pain, Nausea, Vomiting Genitourinary: Denies: Dysuria Musculoskeletal: Denies: Joint Pain, Joint Tenderness Skin: Denies: Rash, Wounds Neurological: Denies: Numbness, Tingling, Focal weakness Psychiatric: Denies: Anxiety, Depression, Homicidal Ideations, Suicidal Ideations Hematologic/ Lymphatic: Denies: Easy Bruising, Easy Bleeding VTE Information - Inpt Only VTE Present on Admission: No VTE Mechan Device Prophylaxis: None Reason prophylaxis not ordered:: Treatment Not Indicated - Already on anticoagulation with Coumadin Patient Problems: Active and Suspected Problems Systolic CHF (Acute) Acute on chronic renal failure (Acute) Supratherapeutic INR (Acute) - Physical Exam Vitals/I&O's: Vital Signs Temp Pulse Resp BP Pulse Ox 97.1 F L 64 20 H 125/60 H 98 11/01/20 12:05 11/01/20 12:05 11/01/20 12:05 11/01/20 12:05 11/01/20 12:05 Oxygen Flow Rate (L/min) 3 Oxygen Delivery Method Nasal Cannula Weight: 218 lb 0.595 oz Body Mass Index (BMI) 33.1 Finger Stick Blood Glucose 188 General: Alert, Oriented x3, Cooperative HEENT: Atraumatic, PERRLA, EOMI, Normocephalic Neck: Supple, No JVD, Negative Carotid Bruits Lungs: Clear to auscultation, Diminished Cardiovascular: Regular rate, Murmur Abdomen: Bowel Sounds Present, Soft, Non Tender, Non-Distended Extremities: No clubbing, No cyanosis, Edema - +3 bilateral lower extremities, upper extremity swelling, anasarca Skin: No rashes, No breakdown Musculoskeletal: No Tenderness to Palpation of Joints or Extremities Neurological: Cranial nerves II-XII grossly intact, Neuro grossly intact Psych/Mental Status: Flat Affect Laboratory Results 11/01/20 09:40: WBC 5.4, RBC 3.46 L, Hgb 8.8 L, Hct 29.6 L, MCV 85.5, MCH 25.4 L, MCHC 29.7 L, RDW Std Deviation 66.3 H, RDW Coeff of Yessi 21.5 H, Plt Count 176, MPV 10.2, Immature Gran % (Auto) 0.200, Neut % (Auto) 67.8, Lymph % (Auto) 20.0, [place] % (Auto) 9.4, Eos % (Auto) 2.2, Baso % (Auto) 0.4, Absolute Neuts (auto) 3.7, Absolute Lymphs (auto) 1.08, Nucleated RBC % 0, Anisocytosis 2+, Crenated Cell 2+ 11/01/20 09:40: Sodium 136, Potassium 4.2, Chloride 102, Carbon Dioxide 28.0, Anion Gap 6, BUN 76 H, Creatinine 2.95 H, Estim Creat Clear Calc 19.64, Est GFR (MDRD) Af Amer 27 L, Est GFR (MDRD) Non-Af 22 L, BUN/Creatinine Ratio 25.8 H, Glucose 71 L, Calcium 9.0, Troponin I 0.024 11/01/20 09:40: B-Natriuretic Peptide 851.2 H 11/01/20 09:40: PT 42.6 H, INR 4.6 H* Current Medications Acetaminophen (Acetaminophen 325 Mg Tablet) 650 mg PO Q6H PRN PRN PRN Reason: Pain Score 1-10/Temp > 100.7 F Albuterol/Ipratropium (Ipratropium/Albuterol Sulfate 3 Ml Ampul.Neb) 3 ml INHALATION Q4H.RT EDD Amiodarone HCl (Amiodarone 200 Mg Tablet) 200 mg PO DAILY [facility] Atorvastatin Calcium (Atorvastatin Calcium 80 Mg Tablet) 80 mg PO QHS [facility] Benzonatate (Benzonatate 100 Mg Capsule) 100 mg PO TID PRN PRN PRN Reason: COUGH Budesonide (Budesonide Respules 0.5 Mg/2 Ml Ampul.Neb.) 0.5 mg INHALATION BID [facility] Clopidogrel Bisulfate (Clopidogrel Bisulfate 75 Mg Tablet) 75 mg PO DAILY [facility] Docusate Sodium (Docusate Sodium 100 Mg Capsule) 100 mg PO BID [facility] Finasteride (Finasteride 5 Mg Tablet) 5 mg PO DAILY [facility] Guaifenesin (Guaifenesin 1,200 Mg Tablet) 1,200 mg PO BID [facility] Furosemide 500 mg/ N/A 50 mls @ 1 mls/hr CONT INF .Q50H [facility] Insulin Glargine (Insulin Glargine 100 Units/Ml Pen) 22 units SC QHS [facility] Insulin Human Lispro (Insulin Lispro 100 Unit/Ml Insuln.Pen) 0 unit SC ACHS EDD; Protocol Levothyroxine Sodium (Levothyroxine 50 Mcg Tablet) 50 mcg PO DAILY [facility] Metoprolol Tartrate (Metoprolol Tartrate 25 Mg Tablet) 12.5 mg PO BID [facility] Midodrine (Midodrine Hcl 5 Mg Tablet) 5 mg PO TIDCM [facility] Non-Formulary Medication (Melatonin) 5 mg PO QHS PRN PRN Reason: INSOMNIA Non-Formulary Medication (Omeprazole) 20 mg PO BID [facility] Ondansetron HCl (Ondansetron 4 Mg/2 Ml Vial) 4 mg IV Q8H PRN PRN PRN Reason: NAUSEA/VOMITING Oxycodone HCl (Oxycodone 5 Mg Tablet) 2.5 mg PO Q4H PRN PRN PRN Reason: sob Senna (Senna Tablet) tablet PO DAILY [facility] Tamsulosin HCl (Tamsulosin Hcl 0.4 Mg Capsule) 0.8 mg PO DAILY@0830 [facility] Warfarin Sodium (Warfarin 1 Mg Tablet) 1 mg PO DAILY@1700 [facility] Assessment/Plan All Active Problems Systolic CHF (Acute) Acute on chronic renal failure (Acute) Supratherapeutic INR (Acute) Acute blood loss anemia (Resolved) GI bleed (Resolved) Gross hematuria (Resolved) 1. Acute on chronic heart failure with reduced ejection fraction/ischemic cardiomyopathy, associated anasarca-echocardiogram 09/02/2020 with EF 30%. BNP 851. Chest x-ray consistent with pulmonary edema. Strict I&O. Daily weight. Antwon wraps bilateral lower extremities. Lasix drip. 2. Acute kidney injury on chronic kidney disease stage IV-secondary to cardiorenal syndrome. Recent renal ultrasound normal. Patient has been following up with nephrology as outpatient. Lasix drip. Trend BMP. 3. Permanent atrial fibrillation on chronic anticoagulation with Coumadin-INR 4.6 on admission. Hold Coumadin 11/01. Resume at lower dose, 1 mg daily. Continue metoprolol with hold parameters. 4. Chronic normocytic anemia, history of GI bleed-hemoglobin stable. Continue PPI. 5. Hypotension-stable, continue midodrine. 6. Chronic hypoxic respiratory failure secondary to chronic heart failure with reduced ejection fraction, chronic COPD-wears 3 L nasal cannula at baseline. Continue supplement oxygen to maintain O2 above 90%. 7. Type 2 diabetes [id number] with sliding scale insulin. Continue home insulin regimen. 8. History of mechanical aortic valve 9. Chronic COPD-as needed albuterol aerosol. 10. EMREY- continue home pap regimen. 11. CAD-continue statin, Plavix. Resume low-dose metoprolol with hold parameters. 12. Schizoaffective disorder-continue home medication regimen. 13. Hypothyroidism-continue Synthroid. 14. GERD-continue PPI. 15. BPH-on Flomax. DVT prophylaxis-Coumadin This patient was seen by BENEDICT Morocho under the supervision of Dr. Felder.
[2020-11-01] MEDS: Furosemide 500 MG in Empty Viaflex 50 mL 1 EACH CONT INF (13:21)
[2020-11-01] MEDS: Ipratropium/Albuterol Sulfate 3 ML AMPUL.NEB INHALATION ×2 (14:19→19:46)
[2020-11-01] MEDS: Midodrine HCl 5 MG Tablet PO ×2 (14:48→17:36)
[2020-11-01 17:06] LABS: Bedside Glucose 110 mg/dL (70-110)
[2020-11-01] MEDS: Benzonatate 100 MG Capsule PO (19:44)
[2020-11-01] MEDS: Metoprolol Tartrate 25 MG Tablet 12.5 MG PO (20:51)
[2020-11-01] MEDS: Atorvastatin Calcium 80 MG Tablet PO (20:51)
[2020-11-01] MEDS: guaiFENesin 1,200 MG Tablet 1200 MG PO (20:51)
[2020-11-01] MEDS: Docusate Sodium 100 MG Capsule PO (20:51)
[2020-11-01] MEDS: Pantoprazole Sodium 20 MG Tablet PO (20:51)
[2020-11-01 21:36] LABS: Bedside Glucose 113 mg/dL (70-110)
[2020-11-01] MEDS: MELATONIN 10 MG TABLET 5 MG PO (23:25)
[2020-11-02] VITALS (16 sets, daily range): BP systolic 93–119; BP diastolic 55–81; PULSE 72–99; RESP 18–24; TEMP 36.3–36.6; O2SAT 95–97
[2020-11-02] MEDS: Levothyroxine 50 MCG Tablet PO (05:42)
[2020-11-02 06:54] LABS: Prothrombin Time (Protime)PT. 48.5 SECONDS (11.7-14.9)
[2020-11-02 06:56] LABS: Bedside Glucose 86 mg/dL (70-110)
[2020-11-02 06:57] LABS: International Normalized Ratio 5.4
[2020-11-02 07:08] LABS: Anion Gap 7 (5-15); BUN 76 mg/dL (7-18); BUN/Creat Ratio 26.6 RATIO (10-20); Calcium,Total 8.9 mg/dL (8.5-10.1); Chloride 103 mmol/L (98-107); Creatinine, Serum 2.86 mg/dL (0.70-1.30); EST Glomerular Filtration Rate 23 mL/min (>60); Est Glom Filt Rate - Afr Amer 28 mL/min (>60); Estimated Creatinine Clearance 20.26 ml/min; Glucose 79 mg/dL (74-106); Potassium 3.9 mmol/L (3.5-5.1); Sodium Level 137 mmol/L (136-145)
[2020-11-02] MEDS: Ipratropium/Albuterol Sulfate 3 ML AMPUL.NEB INHALATION ×4 (07:12→19:28)
[2020-11-02] MEDS: Budesonide Respules 0.5 MG/2 ML AMPUL.NEB. INHALATION ×2 (07:12→19:28)
[2020-11-02] MEDS: Midodrine HCl 5 MG Tablet PO ×3 (09:41→17:48)
[2020-11-02] MEDS: Tamsulosin HCl 0.4 MG Capsule 0.8 MG PO (09:41)
[2020-11-02] MEDS: Docusate Sodium 100 MG Capsule PO ×2 (09:42→22:54)
[2020-11-02] MEDS: Metoprolol Tartrate 25 MG Tablet 12.5 MG PO (09:42)
[2020-11-02] MEDS: Amiodarone 200 MG Tablet PO (09:42)
[2020-11-02] MEDS: Finasteride 5 MG Tablet PO (09:43)
[2020-11-02] MEDS: guaiFENesin 1,200 MG Tablet 1200 MG PO ×2 (09:43→22:54)
[2020-11-02] MEDS: Pantoprazole Sodium 20 MG Tablet PO ×2 (09:44→22:54)
[2020-11-02] MEDS: Senna Tablet 1 TABLET PO (09:44)
--- NOTE | 2020-11-02 10:22 | CASEMGMT ---
Addendum entered by Rukhsana Rodrigues 11/02/20 10:36: SW spoke w/pt's caser in, Mariama Bryan, in regard to pt, let her know pt is here and admitting diagnosis. We spoke about guardianship as there has been concern about pt's understanding of his health issues and ability to care for himself. Mariama states when pt was at home he was not taking his medication correctly, and he was falling a lot. She states she had spoken w/the DARRON at [facility] when pt was there about it. Mariama is going to look into the volunteer guardianship program for this pt, and will either follow up w/magali ROB or with [facility]. Pt had two hours of aide services per day, 6 days per week prior to the hospitalizations and [facility] stays. Mariama asked for discharge instructions to be faxed to her when pt is discharged([phone]). ALEK Hinds Original Note: Pt is here from [place]. SW spoke w/Krissy at [facility], pt will need precert to return. Updates faxed, PT/OT pending. SW spoke w/pt, he would prefer to go home with 24 hour care. SW explained to pt that insurance does not cover 24 hour care at home, pt would need to pay privately. Pt states understanding, for now is agreeable to return to [facility] at discharge. He states Mariama Bryan is his caser in from [facility]. DARRON called Mariama, message left. ALEK Hinds
--- NOTE | 2020-11-02 10:56 | PN_ITS ---
<RichardCheryl [employer] - Last Filed: 11/02/20 11:02> Patient Problems: Active and Suspected Problems Systolic CHF (Acute) Acute on chronic renal failure (Acute) Supratherapeutic INR (Acute) Subjective: Patient seen and examined. Feels his leg swelling is improved. Denies significant shortness of breath. - Physical Exam Vitals/I&O's: Vital Signs Temp Pulse Resp BP Pulse Ox 97.4 F L 96 18 105/67 96 11/02/20 09:11 11/02/20 09:42 11/02/20 09:11 11/02/20 09:11 11/02/20 09:11 Oxygen Flow Rate (L/min) 3 Oxygen Delivery Method Nasal Cannula Weight: 209 lb 7.026 oz Body Mass Index (BMI) 32.3 Finger Stick Blood Glucose 188 Intake and Output for Last 24 Hours 10/31/20 11/01/20 11/02/20 23:59 23:59 23:59 Intake Total 240 / 480 480 / 480 Output Total 275 / 700 600 / 600 Balance -35 / -220 -120 / -120 General: Alert, Oriented x3, Cooperative HEENT: Atraumatic, PERRLA, EOMI, Normocephalic Oral: Dry Mucosa Neck: Supple, No JVD, Negative Carotid Bruits Lungs: Clear to auscultation, Diminished Cardiovascular: Regular rate, Murmur Abdomen: Bowel Sounds Present, Soft, Non Tender, Non-Distended Extremities: No clubbing, No cyanosis, Capillary Refill Less than 3 Seconds, Edema - Bilateral upper and lower extremity edema Skin: No rashes, No breakdown Musculoskeletal: No Tenderness to Palpation of Joints or Extremities Neurological: Cranial nerves II-XII grossly intact, Neuro grossly intact Psych/Mental Status: Flat Affect Laboratory Results 11/01/20 16:59: POC Glucose 110 11/01/20 20:49: POC Glucose 113 H 11/02/20 06:20: PT 48.5 H, INR 5.4 H* 11/02/20 06:20: Sodium 137, Potassium 3.9, Chloride 103, Carbon Dioxide 27.0, Anion Gap 7, BUN 76 H, Creatinine 2.86 H, Estim Creat Clear Calc 20.26, Est GFR (MDRD) Af Amer 28 L, Est GFR (MDRD) Non-Af 23 L, BUN/Creatinine Ratio 26.6 H, Glucose 79, Calcium 8.9 11/02/20 06:38: POC Glucose 86 Current Medications Acetaminophen (Acetaminophen 325 Mg Tablet) 650 mg PO Q6H PRN PRN PRN Reason: Pain Score 1-10/Temp > 100.7 F Albuterol/Ipratropium (Ipratropium/Albuterol Sulfate 3 Ml Ampul.Neb) 3 ml INHALATION Q4H.RT [facility] Last Admin: 11/02/20 07:12 Dose: 3 ml Documented by: Amiodarone HCl (Amiodarone 200 Mg Tablet) 200 mg PO DAILY [facility] Last Admin: 11/02/20 09:42 Dose: 200 mg Documented by: Atorvastatin Calcium (Atorvastatin Calcium 80 Mg Tablet) 80 mg PO QHS [facility] Last Admin: 11/01/20 20:51 Dose: 80 mg Documented by: Benzonatate (Benzonatate 100 Mg Capsule) 100 mg PO TID PRN PRN PRN Reason: COUGH Last Admin: 11/01/20 19:44 Dose: 100 mg Documented by: Budesonide (Budesonide Respules 0.5 Mg/2 Ml Ampul.Neb.) 0.5 mg INHALATION BID.RT [facility] Last Admin: 11/02/20 07:12 Dose: 0.5 mg Documented by: Clopidogrel Bisulfate (Clopidogrel Bisulfate 75 Mg Tablet) 75 mg PO DAILY [facility] Docusate Sodium (Docusate Sodium 100 Mg Capsule) 100 mg PO BID [facility] Last Admin: 11/02/20 09:42 Dose: 100 mg Documented by: Finasteride (Finasteride 5 Mg Tablet) 5 mg PO DAILY [facility] Last Admin: 11/02/20 09:43 Dose: 5 mg Documented by: Guaifenesin (Guaifenesin 1,200 Mg Tablet) 1,200 mg PO BID [facility] Last Admin: 11/02/20 09:43 Dose: 1,200 mg Documented by: Furosemide 500 mg/ N/A 50 mls @ 1 mls/hr CONT INF .Q50H [facility] Last Admin: 11/01/20 13:21 Dose: 10 mg/hr, 1 mls/hr Documented by: Insulin Glargine (Insulin Glargine 100 Units/Ml Pen) 22 units SC QHS [facility] Last Admin: 11/01/20 20:50 Dose: 22 units Documented by: Insulin Human Lispro (Insulin Lispro 100 Unit/Ml Insuln.Pen) 0 unit SC ACHS [facility]; Protocol Last Admin: 11/02/20 06:39 Dose: Not Given Documented by: Levothyroxine Sodium (Levothyroxine 50 Mcg Tablet) 50 mcg PO DAILY@0600 [facility] Last Admin: 11/02/20 05:42 Dose: 50 mcg Documented by: Melatonin (Melatonin 10 Mg Tablet) 5 mg PO QHS PRN PRN Reason: INSOMNIA Last Admin: 11/01/20 23:25 Dose: 5 mg Documented by: Metoprolol Tartrate (Metoprolol Tartrate 25 Mg Tablet) 12.5 mg PO BID [facility] Last Admin: 11/02/20 09:42 Dose: 12.5 mg Documented by: Midodrine (Midodrine Hcl 5 Mg Tablet) 5 mg PO TIDCM [facility] Last Admin: 11/02/20 09:41 Dose: 5 mg Documented by: Ondansetron HCl (Ondansetron 4 Mg/2 Ml Vial) 4 mg IV Q8H PRN PRN PRN Reason: NAUSEA/VOMITING Oxycodone HCl (Oxycodone 5 Mg Tablet) 2.5 mg PO Q4H PRN PRN PRN Reason: sob Pantoprazole Sodium (Pantoprazole Sodium 20 Mg Tablet) 20 mg PO BID [facility] Last Admin: 11/02/20 09:44 Dose: 20 mg Documented by: Senna (Senna Tablet) 1 tablet PO DAILY [facility] Last Admin: 11/02/20 09:44 Dose: 1 tablet Documented by: Sodium Chloride (0.9% Saline Lock 10 Ml Syringe) 10 - 40 ml IV UD PRN PRN Reason: SALINE FLUSH Tamsulosin HCl (Tamsulosin Hcl 0.4 Mg Capsule) 0.8 mg PO DAILY@0830 [facility] Last Admin: 11/02/20 09:41 Dose: 0.8 mg Documented by: Warfarin Sodium (Warfarin 1 Mg Tablet) 1 mg PO DAILY@1700 [facility] Medical Necessity - Tobacco Use Smoking Status: Former smoker Assessment/Plan All Active Problems Systolic CHF (Acute) Acute on chronic renal failure (Acute) Supratherapeutic INR (Acute) Acute blood loss anemia (Resolved) GI bleed (Resolved) Gross hematuria (Resolved) 1. Acute on chronic heart failure with reduced ejection fraction/ischemic cardiomyopathy, associated anasarca-echocardiogram 09/02/2020 with EF 30%. BNP 851. Chest x-ray consistent with pulmonary edema. Strict I&O. Daily weight. Antwon wraps bilateral lower extremities. Lasix drip. 2. Acute kidney injury on chronic kidney disease stage IV-secondary to cardiorenal syndrome. Recent renal ultrasound normal. Patient has been following up with nephrology as outpatient. Lasix drip. Trend BMP. 3. Permanent atrial fibrillation on chronic anticoagulation with Coumadin- supratherapeutic INR, Coumadin on hold. Continue metoprolol with hold parameters. Resume Coumadin at lower dose when INR trends down. 4. Chronic normocytic anemia, history of GI bleed-hemoglobin stable. Continue PPI. 5. Hypotension-stable, continue midodrine. 6. Chronic hypoxic respiratory failure secondary to chronic heart failure with reduced ejection fraction, chronic COPD-wears 3 L nasal cannula at baseline. Continue supplement oxygen to maintain O2 above 90%. 7. Type 2 diabetes [id number] with sliding scale insulin. Continue home insulin regimen. 8. History of mechanical aortic valve 9. Chronic COPD-as needed albuterol aerosol. 10. EMERY- continue home pap regimen. 11. CAD-continue statin, Plavix, metoprolol. 12. Schizoaffective disorder-continue home medication regimen. 13. Hypothyroidism-continue Synthroid. 14. GERD-continue PPI. 15. BPH-on Flomax. DVT prophylaxis-Coumadin on hold This patient was seen by BENEDICT Morocho under the supervision of Dr. Barton. <Holly Barton - Last Filed: 11/03/20 07:46> - Physical Exam Vitals/I&O's: Vital Signs Temp Pulse Resp BP Pulse Ox 97.5 F L 93 18 103/68 97 11/03/20 06:03 11/03/20 07:22 11/03/20 07:22 11/03/20 06:03 11/03/20 07:22 Oxygen Flow Rate (L/min) 3 Oxygen Delivery Method Nasal Cannula Weight: 96.2 kg Body Mass Index (BMI) 32.3 Finger Stick Blood Glucose 188 Intake and Output for Last 24 Hours 11/01/20 11/02/20 11/03/20 23:59 23:59 23:59 Intake Total 240 / 480 1340.30 / 1340.30 150 / 150 Output Total 275 / 700 1125 / 1125 250 / 250 Balance -35 / -220 215.30 / 215.30 -100 / -100 Laboratory Results 11/01/20 09:40: Diff Path Review Reviewed 11/02/20 11:06: POC Glucose 115 H 11/02/20 17:14: POC Glucose 73 11/02/20 22:48: POC Glucose 103 11/03/20 06:05: WBC 5.6, RBC 3.60 L, Hgb 9.2 L, Hct 31.6 L, MCV 87.8, MCH 25.6 L , MCHC 29.1 L, RDW Std Deviation 69.0 H, RDW Coeff of Yessi 21.5 H, Plt Count 178, MPV 9.6 11/03/20 06:05: Sodium 138, Potassium 4.1, Chloride 103, Carbon Dioxide 25.0, Anion Gap 10, BUN 79 H, Creatinine 2.83 H, Estim Creat Clear Calc 20.48, Est GFR (MDRD) Af Amer 28 L, Est GFR (MDRD) Non-Af 23 L, BUN/Creatinine Ratio 27.9 H, Glucose 95, Calcium 8.9 11/03/20 06:05: PT 47.8 H, INR 5.3 H* 11/03/20 06:38: POC Glucose 98 Current Medications Acetaminophen (Acetaminophen 325 Mg Tablet) 650 mg PO Q6H PRN PRN PRN Reason: Pain Score 1-10/Temp > 100.7 F Albuterol/Ipratropium (Ipratropium/Albuterol Sulfate 3 Ml Ampul.Neb) 3 ml IN HALATION Q4H.RT [facility] Last Admin: 11/03/20 07:22 Dose: 3 ml Documented by: Amiodarone HCl (Amiodarone 200 Mg Tablet) 200 mg PO DAILY [facility] Last Admin: 11/02/20 09:42 Dose: 200 mg Documented by: Atorvastatin Calcium (Atorvastatin Calcium 80 Mg Tablet) 80 mg PO QHS [facility] Last Admin: 11/02/20 22:54 Dose: 80 mg Documented by: Benzonatate (Benzonatate 100 Mg Capsule) 100 mg PO TID PRN PRN PRN Reason: COUGH Last Admin: 11/01/20 19:44 Dose: 100 mg Documented by: Budesonide (Budesonide Respules 0.5 Mg/2 Ml Ampul.Neb.) 0.5 mg INHALATION BID.RT [facility] Last Admin: 11/03/20 07:22 Dose: 0.5 mg Documented by: Clopidogrel Bisulfate (Clopidogrel Bisulfate 75 Mg Tablet) 75 mg PO DAILY [facility] Last Admin: 11/02/20 12:47 Dose: 75 mg Documented by: Docusate Sodium (Docusate Sodium 100 Mg Capsule) 100 mg PO BID [facility] Last Admin: 11/02/20 22:54 Dose: 100 mg Documented by: Finasteride (Finasteride 5 Mg Tablet) 5 mg PO DAILY [facility] Last Admin: 11/02/20 09:43 Dose: 5 mg Documented by: Guaifenesin (Guaifenesin 1,200 Mg Tablet) 1,200 mg PO BID [facility] Last Admin: 11/02/20 22:54 Dose: 1,200 mg Documented by: Furosemide 500 mg/ N/A 50 mls @ 1 mls/hr CONT INF .Q50H [facility] Last Infusion: 11/02/20 21:00 Dose: 10 mg/hr, 1 mls/hr Documented by: Insulin Glargine (Insulin Glargine 100 Units/Ml Pen) 22 units SC QHS [facility] Last Admin: 11/02/20 22:51 Dose: Not Given Documented by: Insulin Human Lispro (Insulin Lispro 100 Unit/Ml Insuln.Pen) 0 unit SC [facility]; Protocol Last Admin: 11/03/20 06:40 Dose: Not Given Documented by: Levothyroxine Sodium (Levothyroxine 50 Mcg Tablet) 50 mcg PO DAILY@0600 [facility] Last Admin: 11/03/20 06:39 Dose: 50 mcg Documented by: Melatonin (Melatonin 10 Mg Tablet) 5 mg PO QHS PRN PRN Reason: INSOMNIA Last Admin: 11/01/20 23:25 Dose: 5 mg Documented by: Metoprolol Tartrate (Metoprolol Tartrate 25 Mg Tablet) 12.5 mg PO BID [facility] Last Admin: 11/02/20 22:53 Dose: Not Given Documented by: Midodrine (Midodrine Hcl 5 Mg Tablet) 5 mg PO TIDCM [facility] Last Admin: 11/02/20 17:48 Dose: 5 mg Documented by: Ondansetron HCl (Ondansetron 4 Mg/2 Ml Vial) 4 mg IV Q8H PRN PRN PRN Reason: NAUSEA/VOMITING Oxycodone HCl (Oxycodone 5 Mg Tablet) 2.5 mg PO Q4H PRN PRN PRN Reason: sob Pantoprazole Sodium (Pantoprazole Sodium 20 Mg Tablet) 20 mg PO BID [facility] Last Admin: 11/02/20 22:54 Dose: 20 mg Documented by: Senna (Senna Tablet) 1 tablet PO DAILY [facility] Last Admin: 11/02/20 09:44 Dose: 1 tablet Documented by: Sodium Chloride (0.9% Saline Lock 10 Ml Syringe) 10 - 40 ml IV UD PRN PRN Reason: SALINE FLUSH Tamsulosin HCl (Tamsulosin Hcl 0.4 Mg Capsule) 0.8 mg PO DAILY@0830 [facility] Last Admin: 11/02/20 09:41 Dose: 0.8 mg Documented by: Assessment/Plan This patient was seen in conjunction with Cheryl Ramos NP. I have independently interviewed and examined the patient and reviewed pertinent historical, laboratory, and other data. Please refer to her note for patient's presentation, findings, and recommendations. Patient was seen and examined. No acute events overnight. He is breathing better. Vitals were reviewed -stable Physical Exam: Gen: Morbidly obese, not pale, not jaundiced, alert oriented x3 CVS:HS I +II, regular, 3/6 holosystolic murmurs, left forearm AVF thrill RESP: Diminished at lung bases GI: BS present and normal, nontender, no palpable organs EXT:Bilateral leg edema, bilateral ANTWON-wraps, chronic venous stasis dermatitis Labs reviewed: ASSESSMENT: 1. Acute on chronic CHF with reduced EF, EF 30% 2. HUONG on CKD stage 4 3. Chronic A. fib 4. Supratherapeutic INR 5. Anemia 6. Hypotension 7. Chronci hypoxic respiratory failure 8. Type 2 DM 9. Status post mechanical aortic valve Meds reviewed Plan: Continue on Lasix drip Repeat blood work in am Inpatient E&M: 28993 Subs Hosp L2
[2020-11-02 11:10] LABS: Bedside Glucose 115 mg/dL (70-110)
--- NOTE | 2020-11-02 12:03 | CASEMGMT ---
LW/Medical POA forms both scanned into summary tab of echart, however p. 8 of the POA form is missing, which is the witness/notary page. SW called Krissy at [facility] and asked her to send it to this SW if they have it on file. ALEK Hinds
[2020-11-02 12:24] LABS: Pathologist Review Reviewed
[2020-11-02] MEDS: Clopidogrel Bisulfate 75 MG Tablet PO (12:47)
--- NOTE | 2020-11-02 14:37 | CASEMGMT ---
Readmission chart review: Pt was admitted 09/01-09/14/20 for gross hematuria and was discharged to [facility]. Pt then returned to [facility] ED on 10/12-10/21/20 for Acute anemia, elev INR. Pt's INR was 12.9 upon arrival this visit. Pt refused to go back to [facility] and was discharged to [place] on 2-4l nc continuous. Pt returned to [facility] ED on 11/01/20 for reported 19lb weight gain over past 2 days and only 150ml output for the last 12hrs. Pt admitted for CHF. Pt's discharge weight on 10/21/20 was 210.1lbs and admission weight this visit was 212.3lbs, so really only 2.2lbs difference. Pt is currently on 3L nc. CM to follow for any further discharge planning/needs. Ashlie FIORE CM
[2020-11-02] MEDS: Furosemide 500 MG in Empty Viaflex 50 mL 1 EACH 10 MG CONT INF (17:49)
[2020-11-02 17:56] LABS: Bedside Glucose 73 mg/dL (70-110)
[2020-11-02] MEDS: Atorvastatin Calcium 80 MG Tablet PO (22:54)
[2020-11-02 23:36] LABS: Bedside Glucose 103 mg/dL (70-110)
[2020-11-03] VITALS (19 sets, daily range): BP systolic 85–109; BP diastolic 53–68; PULSE 76–93; RESP 18–25; TEMP 35.9–36.8; O2SAT 94–100
[2020-11-03] MEDS: Ipratropium/Albuterol Sulfate 3 ML AMPUL.NEB INHALATION ×6 (03:50→23:15)
[2020-11-03] MEDS: Levothyroxine 50 MCG Tablet PO (06:39)
[2020-11-03 06:46] LABS: Bedside Glucose 98 mg/dL (70-110)
[2020-11-03 07:05] LABS: Hematocrit 31.6 % (40-54); Hemoglobin 9.2 g/dL (13.0-16.5); Mean Corp Hgb Conc 29.1 g/dL (32-36); Mean Corpuscular Hgb 25.6 pg (27.0-32.0); Mean Corpuscular Volume 87.8 fL (80-94); Mean Platelet Vol. 9.6 fl (6.2-12.0); POSITIVE MORPHOLOGY YES; Platelet Count 178 K/mm3 (150-450); RBC Distribution Width CV 21.5 % (11.6-14.6); White Blood Count 5.6 K/mm3 (4.4-11.0)
[2020-11-03 07:08] LABS: Scan Indicated on CBC? Y/N YES- FLAGS NOTED
[2020-11-03 07:21] LABS: Prothrombin Time (Protime)PT. 47.8 SECONDS (11.7-14.9)
[2020-11-03] MEDS: Budesonide Respules 0.5 MG/2 ML AMPUL.NEB. INHALATION ×2 (07:22→18:55)
[2020-11-03 07:24] LABS: International Normalized Ratio 5.3
[2020-11-03 07:30] LABS: Anion Gap 10 (5-15); BUN 79 mg/dL (7-18); BUN/Creat Ratio 27.9 RATIO (10-20); Calcium,Total 8.9 mg/dL (8.5-10.1); Chloride 103 mmol/L (98-107); Creatinine, Serum 2.83 mg/dL (0.70-1.30); EST Glomerular Filtration Rate 23 mL/min (>60); Est Glom Filt Rate - Afr Amer 28 mL/min (>60); Estimated Creatinine Clearance 20.48 ml/min; Glucose 95 mg/dL (74-106); Potassium 4.1 mmol/L (3.5-5.1); Sodium Level 138 mmol/L (136-145)
[2020-11-03] MEDS: Finasteride 5 MG Tablet PO (08:00)
[2020-11-03] MEDS: Metoprolol Tartrate 25 MG Tablet 12.5 MG PO (08:00)
[2020-11-03] MEDS: guaiFENesin 1,200 MG Tablet 1200 MG PO ×2 (08:01→21:27)
[2020-11-03] MEDS: Docusate Sodium 100 MG Capsule PO ×2 (08:01→21:25)
[2020-11-03] MEDS: Amiodarone 200 MG Tablet PO (08:01)
[2020-11-03] MEDS: Midodrine HCl 5 MG Tablet PO ×3 (08:01→16:21)
[2020-11-03] MEDS: Pantoprazole Sodium 20 MG Tablet PO ×2 (08:02→21:27)
[2020-11-03] MEDS: Clopidogrel Bisulfate 75 MG Tablet PO (08:02)
[2020-11-03] MEDS: Tamsulosin HCl 0.4 MG Capsule 0.8 MG PO (08:02)
[2020-11-03] MEDS: Senna Tablet 1 TABLET PO (08:02)
[2020-11-03] MEDS: Insulin Lispro 100 UNIT/ML INSULN.PEN SC ×3 (11:23→21:24)
[2020-11-03 11:40] LABS: Bedside Glucose 188 mg/dL (70-110)
--- NOTE | 2020-11-03 12:00 | PN_ITS ---
<RichardCheryl MANAGER SOCIAL RESPONSIBILITY - Last Filed: 11/03/20 12:07> Patient Problems: Active and Suspected Problems Systolic CHF (Acute) Acute on chronic renal failure (Acute) Supratherapeutic INR (Acute) Subjective: Patient seen and examined. Remains edematous. On baseline O2, denies increased shortness of breath. - Physical Exam Vitals/I&O's: Vital Signs Temp Pulse Resp BP Pulse Ox 97.2 F L 80 22 H 107/60 94 11/03/20 08:15 11/03/20 10:55 11/03/20 10:55 11/03/20 08:15 11/03/20 10:55 Oxygen Flow Rate (L/min) 3 Oxygen Delivery Method Nasal Cannula Weight: 212 lb 1.355 oz Body Mass Index (BMI) 32.3 Finger Stick Blood Glucose 188 Intake and Output for Last 24 Hours 11/01/20 11/02/20 11/03/20 23:59 23:59 23:59 Intake Total 240 / 480 1340.30 / 1340.30 150 / 150 Output Total 275 / 700 1125 / 1125 250 / 250 Balance -35 / -220 215.30 / 215.30 -100 / -100 General: Alert, Oriented x3, Cooperative HEENT: Atraumatic, PERRLA, EOMI, Normocephalic Neck: Supple, No JVD, Negative Carotid Bruits Lungs: Clear to auscultation, Diminished Cardiovascular: Regular rate, Murmur Abdomen: Bowel Sounds Present, Soft, Non Tender, Non-Distended Extremities: No clubbing, No cyanosis, Capillary Refill Less than 3 Seconds, Edema - Bilateral upper and lower extremity edema Skin: No rashes, No breakdown Musculoskeletal: No Tenderness to Palpation of Joints or Extremities Neurological: Cranial nerves II-XII grossly intact, Neuro grossly intact Psych/Mental Status: Flat Affect Laboratory Results 11/01/20 09:40: Diff Path Review Reviewed 11/02/20 17:14: POC Glucose 73 11/02/20 22:48: POC Glucose 103 11/03/20 06:05: WBC 5.6, RBC 3.60 L, Hgb 9.2 L, Hct 31.6 L, MCV 87.8, MCH 25.6 L , MCHC 29.1 L, RDW Std Deviation 69.0 H, RDW Coeff of Yessi 21.5 H, Plt Count 178, MPV 9.6, Differential Comment SEE COMMENT 11/03/20 06:05: Sodium 138, Potassium 4.1, Chloride 103, Carbon Dioxide 25.0, Anion Gap 10, BUN 79 H, Creatinine 2.83 H, Estim Creat Clear Calc 20.48, Est GFR (MDRD) Af Amer 28 L, Est GFR (MDRD) Non-Af 23 L, BUN/Creatinine Ratio 27.9 H, Glucose 95, Calcium 8.9 11/03/20 06:05: PT 47.8 H, INR 5.3 H* 11/03/20 06:38: POC Glucose 98 11/03/20 11:20: POC Glucose 188 H Current Medications Acetaminophen (Acetaminophen 325 Mg Tablet) 650 mg PO Q6H PRN PRN PRN Reason: Pain Score 1-10/Temp > 100.7 F Albuterol/Ipratropium (Ipratropium/Albuterol Sulfate 3 Ml Ampul.Neb) 3 ml INHALATION Q4H.RT [facility] Last Admin: 11/03/20 10:55 Dose: 3 ml Documented by: Amiodarone HCl (Amiodarone 200 Mg Tablet) 200 mg PO DAILY [facility] Last Admin: 11/03/20 08:01 Dose: 200 mg Documented by: Atorvastatin Calcium (Atorvastatin Calcium 80 Mg Tablet) 80 mg PO QHS [facility] Last Admin: 11/02/20 22:54 Dose: 80 mg Documented by: Benzonatate (Benzonatate 100 Mg Capsule) 100 mg PO TID PRN PRN PRN Reason: COUGH Last Admin: 11/01/20 19:44 Dose: 100 mg Documented by: Budesonide (Budesonide Respules 0.5 Mg/2 Ml Ampul.Neb.) 0.5 mg INHALATION BID.RT [facility] Last Admin: 11/03/20 07:22 Dose: 0.5 mg Documented by: Clopidogrel Bisulfate (Clopidogrel Bisulfate 75 Mg Tablet) 75 mg PO DAILY [facility] Last Admin: 11/03/20 08:02 Dose: 75 mg Documented by: Docusate Sodium (Docusate Sodium 100 Mg Capsule) 100 mg PO BID [facility] Last Admin: 11/03/20 08:01 Dose: 100 mg Documented by: Finasteride (Finasteride 5 Mg Tablet) 5 mg PO DAILY [facility] Last Admin: 11/03/20 08:00 Dose: 5 mg Documented by: Guaifenesin (Guaifenesin 1,200 Mg Tablet) 1,200 mg PO BID [facility] Last Admin: 11/03/20 08:01 Dose: 1,200 mg Documented by: Furosemide 500 mg/ N/A 50 mls @ 1 mls/hr CONT INF .Q50H [facility] Last Infusion: 11/02/20 21:00 Dose: 10 mg/hr, 1 mls/hr Documented by: Insulin Glargine (Insulin [facility]argine 100 Units/Ml Pen) [facility] Last Admin: 11/02/20 22:51 Dose: Not Given Documented by: Insulin Human Lispro (Insulin Lispro 100 Unit/Ml Insuln.Pen) 0 unit SC [facility]; Protocol Last Admin: 11/03/20 11:23 Dose: 1 u Documented by: Levothyroxine Sodium (Levothyroxine 50 Mcg Tablet) 50 mcg PO DAILY@0600 [facility] Last Admin: 11/03/20 06:39 Dose: 50 mcg Documented by: Melatonin (Melatonin 10 Mg Tablet) 5 mg PO QHS PRN PRN Reason: INSOMNIA Last Admin: 11/01/20 23:25 Dose: 5 mg Documented by: Metoprolol Tartrate (Metoprolol Tartrate 25 Mg Tablet) 12.5 mg PO BID [facility] Last Admin: 11/03/20 08:00 Dose: 12.5 mg Documented by: Midodrine (Midodrine Hcl 5 Mg Tablet) 5 mg PO TIDCM [facility] Last Admin: 11/03/20 11:24 Dose: 5 mg Documented by: Ondansetron HCl (Ondansetron 4 Mg/2 Ml Vial) 4 mg IV Q8H PRN PRN PRN Reason: NAUSEA/VOMITING Oxycodone HCl (Oxycodone 5 Mg Tablet) 2.5 mg PO Q4H PRN PRN PRN Reason: sob Pantoprazole Sodium (Pantoprazole Sodium 20 Mg Tablet) 20 mg PO BID [facility] Last Admin: 11/03/20 08:02 Dose: 20 mg Documented by: Senna (Senna Tablet) 1 tablet PO DAILY [facility] Last Admin: 11/03/20 08:02 Dose: 1 tablet Documented by: Sodium Chloride (0.9% Saline Lock 10 Ml Syringe) 10 - 40 ml IV UD PRN PRN Reason: SALINE FLUSH Tamsulosin HCl (Tamsulosin Hcl 0.4 Mg Capsule) 0.8 mg PO DAILY@0830 [facility] Last Admin: 11/03/20 08:02 Dose: 0.8 mg Documented by: Medical Necessity - Tobacco Use Smoking Status: Former smoker Assessment/Plan All Active Problems Systolic CHF (Acute) Acute on chronic renal failure (Acute) Supratherapeutic INR (Acute) Acute blood loss anemia (Resolved) GI bleed (Resolved) Gross hematuria (Resolved) 1. Acute on chronic heart failure with reduced ejection fraction/ischemic cardiomyopathy, associated anasarca-echocardiogram 09/02/2020 with EF 30%. BNP 851. Chest x-ray consistent with pulmonary edema. Strict I&O. Daily weight. Antwon wraps bilateral lower extremities. Stable on Lasix drip, continue. 2. Acute kidney injury on chronic kidney disease stage IV-secondary to cardiorenal syndrome. Recent renal ultrasound normal. Patient has been following up with nephrology as outpatient. Lasix drip. Trend BMP. 3. Permanent atrial fibrillation on chronic anticoagulation with Coumadin- supratherapeutic INR, Coumadin on hold. Continue metoprolol with hold parameters. Resume Coumadin at lower dose when INR trends down. 4. Chronic normocytic anemia, history of GI bleed-hemoglobin stable. Continue PPI. 5. Hypotension-stable, continue midodrine. 6. Chronic hypoxic respiratory failure secondary to chronic heart failure with reduced ejection fraction, chronic COPD-wears 3 L nasal cannula at baseline. Continue supplement oxygen to maintain O2 above 90%. 7. Type 2 diabetes [id number] with sliding scale insulin. Continue home insulin regimen. 8. History of mechanical aortic valve 9. Chronic COPD-as needed albuterol aerosol. 10. EMERY- continue home pap regimen. 11. CAD-continue statin, Plavix, metoprolol. 12. Schizoaffective disorder-continue home medication regimen. 13. Hypothyroidism-continue Synthroid. 14. GERD-continue PPI. 15. BPH-on Flomax. DVT prophylaxis-Coumadin on hold, supratherapeutic INR Discharge plan: Continue Lasix drip. Patient is hospice appropriate however he is not amenable at this time. Following with palliative. This patient was seen by BENEDICT Morocho under the supervision of Dr. Barton. <Holly Barton - Last Filed: 11/03/20 15:56> - Physical Exam Vitals/I&O's: Vital Signs Temp Pulse Resp BP Pulse Ox 98.3 F 76 25 H 95/53 L 98 11/03/20 14:15 11/03/20 14:57 11/03/20 14:57 11/03/20 14:15 11/03/20 14:15 Oxygen Flow Rate (L/min) 3 Oxygen Delivery Method Nasal Cannula Weight: 96.2 kg Body Mass Index (BMI) 32.3 Finger Stick Blood Glucose 188 Intake and Output for Last 24 Hours 11/01/20 11/02/20 11/03/20 23:59 23:59 23:59 Intake Total 240 / 480 1340.30 / 1340.30 270 / 270 Output Total 275 / 700 1125 / 1125 450 / 450 Balance -35 / -220 215.30 / 215.30 -180 / -180 Laboratory Results 11/02/20 17:14: POC Glucose 73 11/02/20 22:48: POC Glucose 103 11/03/20 06:05: WBC 5.6, RBC 3.60 L, Hgb 9.2 L, Hct 31.6 L, MCV 87.8, MCH 25.6 L , MCHC 29.1 L, RDW Std Deviation 69.0 H, RDW Coeff of Yessi 21.5 H, Plt Count 178, MPV 9.6, Differential Comment SEE COMMENT 11/03/20 06:05: Sodium 138, Potassium 4.1, Chloride 103, Carbon Dioxide 25.0, Anion Gap 10, BUN 79 H, Creatinine 2.83 H, Estim Creat Clear Calc 20.48, Est GFR (MDRD) Af Amer 28 L, Est GFR (MDRD) Non-Af 23 L, BUN/Creatinine Ratio 27.9 H, Glucose 95, Calcium 8.9 11/03/20 06:05: PT 47.8 H, INR 5.3 H* 11/03/20 06:38: POC Glucose 98 11/03/20 11:20: POC Glucose 188 H Current Medications Acetaminophen (Acetaminophen 325 Mg Tablet) 650 mg PO Q6H PRN PRN PRN Reason: Pain Score 1-10/Temp > 100.7 F Albuterol/Ipratropium (Ipratropium/Albuterol Sulfate 3 Ml Ampul.Neb) 3 ml INHALATION Q4H.RT [facility] Last Admin: 11/03/20 14:57 Dose: 3 ml Documented by: Amiodarone HCl (Amiodarone 200 Mg Tablet) 200 mg PO DAILY [facility] Last Admin: 11/03/20 08:01 Dose: 200 mg Documented by: Atorvastatin Calcium (Atorvastatin Calcium 80 Mg Tablet) 80 mg PO QHS [facility] Last Admin: 11/02/20 22:54 Dose: 80 mg Documented by: Benzonatate (Benzonatate 100 Mg Capsule) 100 mg PO TID PRN PRN PRN Reason: COUGH Last Admin: 11/01/20 19:44 Dose: 100 mg Documented by: Budesonide (Budesonide Respules 0.5 Mg/2 Ml Ampul.Neb.) 0.5 mg INHALATION BID.RT [facility] Last Admin: 11/03/20 07:22 Dose: 0.5 mg Documented by: Clopidogrel Bisulfate (Clopidogrel Bisulfate 75 Mg Tablet) 75 mg PO DAILY [facility] Last Admin: 11/03/20 08:02 Dose: 75 mg Documented by: Docusate Sodium (Docusate Sodium 100 Mg Capsule) 100 mg PO BID [facility] Last Admin: 11/03/20 08:01 Dose: 100 mg Documented by: Finasteride (Finasteride 5 Mg Tablet) 5 mg PO DAILY [facility] Last Admin: 11/03/20 08:00 Dose: 5 mg Documented by: Guaifenesin (Guaifenesin 1,200 Mg Tablet) 1,200 mg PO BID [facility] Last Admin: 11/03/20 08:01 Dose: 1,200 mg Documented by: Furosemide 500 mg/ N/A 50 mls @ 1 mls/hr CONT INF .Q50H [facility] Last Infusion: 11/02/20 21:00 Dose: 10 mg/hr, 1 mls/hr Documented by: Insulin Glargine (Insulin Glargine 100 Units/Ml Pen) 22 units SC QHS [facility] Last Admin: 11/02/20 22:51 Dose: Not Given Documented by: Insulin Human Lispro (Insulin Lispro 100 Unit/Ml Insuln.Pen) 0 unit SC ACHS [facility]; Protocol Last Admin: 11/03/20 11:23 Dose: 1 u Documented by: Levothyroxine Sodium (Levothyroxine 50 Mcg Tablet) 50 mcg PO DAILY@0600 [facility] Last Admin: 11/03/20 06:39 Dose: 50 mcg Documented by: Melatonin (Melatonin 10 Mg Tablet) 5 mg PO QHS PRN PRN Reason: INSOMNIA Last Admin: 11/01/20 23:25 Dose: 5 mg Documented by: Metoprolol Tartrate (Metoprolol Tartrate 25 Mg Tablet) 12.5 mg PO BID [facility] Last Admin: 11/03/20 08:00 Dose: 12.5 mg Documented by: Midodrine (Midodrine Hcl 5 Mg Tablet) 5 mg PO TIDCM [facility] Last Admin: 11/03/20 11:24 Dose: 5 mg Documented by: Ondansetron HCl (Ondansetron 4 Mg/2 Ml Vial) 4 mg IV Q8H PRN PRN PRN Reason: NAUSEA/VOMITING Oxycodone HCl (Oxycodone 5 Mg Tablet) 2.5 mg PO Q4H PRN PRN PRN Reason: sob Pantoprazole Sodium (Pantoprazole Sodium 20 Mg Tablet) 20 mg PO BID [facility] Last Admin: 11/03/20 08:02 Dose: 20 mg Documented by: Senna (Senna Tablet) 1 tablet PO DAILY [facility] Last Admin: 11/03/20 08:02 Dose: 1 tablet Documented by: Sodium Chloride (0.9% Saline Lock 10 Ml Syringe) 10 - 40 ml IV UD PRN PRN Reason: SALINE FLUSH Tamsulosin HCl (Tamsulosin Hcl 0.4 Mg Capsule) 0.8 mg PO DAILY@0830 [facility] Last Admin: 11/03/20 08:02 Dose: 0.8 mg Documented by: Assessment/Plan This patient was seen in conjunction with Cheryl Ramos NP. I have independently interviewed and examined the patient and reviewed pertinent historical, laboratory, and other data. Please refer to her note for patient's presentation, findings, and recommendations. Patient was seen and examined. No acute events overnight. Vitals were reviewed -stable Physical Exam: Gen: Morbidly obese, not pale, not jaundiced, alert oriented x3 CVS:HS I +II, regular, metallic click holosystolic murmurs RESP: Diminished at lung bases GI: BS present and normal, nontender, no palpable organs EXT:Bilateral leg edema, bilateral ANTWON-wraps, chronic venous stasis dermatitis Labs reviewed: ASSESSMENT: 1. Acute on chronic CHF with reduced EF, EF 30% 2. HUONG on CKD stage 4 3. Chronic A. fib 4. Supratherapeutic INR 5. Anemia 6. Hypotension 7. Chronci hypoxic respiratory failure 8. Type 2 DM 9. Status post mechanical aortic valve Meds reviewed Plan: Continue on Lasix drip Repeat blood work in am Inpatient E&M: [id number] [facility] Hosp L3
--- NOTE | 2020-11-03 15:02 | CASEMGMT ---
Social Work Telephone call from Krissy Brewer requesting updated. This social work therapist updated Margo that per medical team patient is not medically cleared for discharge today. Krissy request for PT/OT notes/evals to be faxed to start precert. PT/OT notes/evals faxed. Social work to continue to follow. Darcie Tsai MSW, ASHLEY-S
[2020-11-03 17:01] LABS: Bedside Glucose 180 mg/dL (70-110)
[2020-11-03] MEDS: Furosemide 500 MG in Empty Viaflex 50 mL 1 EACH CONT INF (17:15)
[2020-11-03] MEDS: Atorvastatin Calcium 80 MG Tablet PO (21:26)
[2020-11-03] MEDS: MELATONIN 10 MG TABLET 5 MG PO (21:38)
[2020-11-03 21:55] LABS: Bedside Glucose 253 mg/dL (70-110)
[2020-11-04] VITALS (11 sets, daily range): BP systolic 91–111; BP diastolic 62–71; PULSE 81–95; RESP 18–20; TEMP 35.8–36.6; O2SAT 95–99
[2020-11-04] MEDS: Ipratropium/Albuterol Sulfate 3 ML AMPUL.NEB INHALATION ×3 (02:10→11:01)
[2020-11-04 05:22] LABS: Hemoglobin 8.9 g/dL (13.0-16.5); Mean Corp Hgb Conc 28.7 g/dL (32-36); Mean Corpuscular Hgb 24.9 pg (27.0-32.0); Mean Corpuscular Volume 86.6 fL (80-94); Mean Platelet Vol. 10.4 fl (6.2-12.0); POSITIVE MORPHOLOGY YES; Platelet Count 187 K/mm3 (150-450); RBC Distribution Width CV 21.2 % (11.6-14.6); RBC Distribution Width SD 67.7 fl (35.1-43.9); Red Blood Count 3.58 M/mm3 (4.6-6.2); White Blood Count 5.9 K/mm3 (4.4-11.0)
[2020-11-04 05:24] LABS: Scan Indicated on CBC? Y/N YES- FLAGS NOTED
[2020-11-04 05:38] LABS: Prothrombin Time (Protime)PT. 52.6 SECONDS (11.7-14.9)
[2020-11-04 05:43] LABS: Anion Gap 7 (5-15); BUN 79 mg/dL (7-18); BUN/Creat Ratio 27.4 RATIO (10-20); Calcium,Total 8.4 mg/dL (8.5-10.1); Chloride 105 mmol/L (98-107); Creatinine, Serum 2.88 mg/dL (0.70-1.30); EST Glomerular Filtration Rate 23 mL/min (>60); Est Glom Filt Rate - Afr Amer 27 mL/min (>60); Estimated Creatinine Clearance 20.12 ml/min; Glucose 117 mg/dL (74-106); Potassium 3.9 mmol/L (3.5-5.1); Sodium Level 139 mmol/L (136-145)
[2020-11-04 05:51] LABS: Differential Comment SCANNED
[2020-11-04] MEDS: Levothyroxine 50 MCG Tablet PO (05:52)
[2020-11-04 07:05] LABS: Bedside Glucose 115 mg/dL (70-110)
[2020-11-04] MEDS: Budesonide Respules 0.5 MG/2 ML AMPUL.NEB. INHALATION (07:36)
[2020-11-04 08:12] LABS: AST(SGOT) 29 U/L (15-37); Alanine Aminotransfer ALT/SGPT 26 U/L (16-61); Albumin, Serum 2.5 g/dL (3.2-5.0); Alkaline Phosphatase 184 U/L (45-117); Bilirubin, Direct 0.42 mg/dL (0.00-0.30); Globulin 3.9 g/dL (2.2-4.2); Protein, Total 6.4 g/dL (6.4-8.2)
[2020-11-04] MEDS: Midodrine HCl 5 MG Tablet PO ×2 (08:25→11:37)
[2020-11-04] MEDS: Tamsulosin HCl 0.4 MG Capsule 0.8 MG PO (08:25)
[2020-11-04] MEDS: Amiodarone 200 MG Tablet PO (08:26)
[2020-11-04] MEDS: guaiFENesin 1,200 MG Tablet 1200 MG PO (08:26)
[2020-11-04] MEDS: Metoprolol Tartrate 25 MG Tablet 12.5 MG PO (08:26)
[2020-11-04] MEDS: Docusate Sodium 100 MG Capsule PO (08:26)
[2020-11-04] MEDS: Pantoprazole Sodium 20 MG Tablet PO (08:27)
[2020-11-04] MEDS: Clopidogrel Bisulfate 75 MG Tablet PO (08:27)
[2020-11-04] MEDS: Finasteride 5 MG Tablet PO (08:27)
[2020-11-04] MEDS: Senna Tablet 1 TABLET PO (08:27)
[2020-11-04] MEDS: Phytonadione (Vit K1) 5 MG TABLET 2.5 MG PO (11:37)
[2020-11-04] MEDS: Benzonatate 100 MG Capsule PO (11:38)
[2020-11-04 11:50] LABS: Bedside Glucose 126 mg/dL (70-110)
--- NOTE | 2020-11-04 12:18 | PCM.PROGNOTE ---
<RichardCheryl OIL REFINER - Last Filed: 11/04/20 12:24> Patient Problems: Active and Suspected Problems Systolic CHF (Acute) Acute on chronic renal failure (Acute) Supratherapeutic INR (Acute) Subjective: Patient seen and examined. Discussed in length with patient the severity of his illness. Discussed hospice services and patient amenable to speaking with them. He states he would like to go home with hospice however he is by himself at home and do not feel this is an option without 24-hour care. - Physical Exam Vitals/I&O's: Vital Signs Temp Pulse Resp BP Pulse Ox 97.9 F 81 19 H 111/67 95 11/04/20 05:14 11/04/20 11:13 11/04/20 11:13 11/04/20 05:14 11/04/20 08:00 Oxygen Flow Rate (L/min) 3 Oxygen Delivery Method Nasal Cannula Weight: 212 lb 1.355 oz Body Mass Index (BMI) 32.3 Finger Stick Blood Glucose 188 Intake and Output for Last 24 Hours 11/02/20 11/03/20 11/04/20 23:59 23:59 23:59 Intake Total 1340.30 / 1340.30 388.17 / 588.17 670 / 670 Output Total 1125 / 1125 650 / 800 400 / 400 Balance 215.30 / 215.30 -261.83 / -211.83 270 / 270 General: Alert, Oriented x3, Cooperative HEENT: Atraumatic, PERRLA, EOMI, Normocephalic Neck: Supple, No JVD, Negative Carotid Bruits Lungs: Clear to auscultation, Diminished Cardiovascular: Regular rate, Murmur Abdomen: Bowel Sounds Present, Soft, Non Tender, Non-Distended Extremities: No clubbing, No cyanosis, Edema - Bilateral upper and lower extremity edema, generalized swelling Skin: No rashes, No breakdown Musculoskeletal: No Tenderness to Palpation of Joints or Extremities Neurological: Cranial nerves II-XII grossly intact, Neuro grossly intact Psych/Mental Status: Flat Affect Laboratory Results 11/03/20 16:15: POC Glucose 180 H 11/03/20 21:19: POC Glucose 253 H 11/04/20 05:02: WBC 5.9, RBC 3.58 L, Hgb 8.9 L, Hct 31.0 L, MCV 86.6, MCH 24.9 L, MCHC 28.7 L, RDW Std Deviation 67.7 H, RDW Coeff of Yessi 21.2 H, Plt Count 187, MPV 10.4, Differential Comment SCANNED 11/04/20 05:02: PT 52.6 H, INR 6.0 H* 11/04/20 05:02: Sodium 139, Potassium 3.9, Chloride 105, Carbon Dioxide 27.0, Anion Gap 7, BUN 79 H, Creatinine 2.88 H, Estim Creat Clear Calc 20.12, Est GFR (MDRD) Af Amer 27 L, Est GFR (MDRD) Non-Af 23 L, BUN/Creatinine Ratio 27.4 H, Glucose 117 H, Calcium 8.4 L 11/04/20 05:02: Total Bilirubin 0.90, Direct Bilirubin 0.42 H, AST 29, ALT 26, Alkaline Phosphatase 184 H, Total Protein 6.4, Albumin 2.5 L, Globulin 3.9 11/04/20 06:56: POC Glucose 115 H 11/04/20 11:34: POC Glucose 126 H Current Medications Acetaminophen (Acetaminophen 325 Mg Tablet) 650 mg PO Q6H PRN PRN PRN Reason: Pain Score 1-10/Temp > 100.7 F Albuterol/Ipratropium (Ipratropium/Albuterol Sulfate 3 Ml Ampul.Neb) 3 ml INHALATION Q4H.RT [facility] Last Admin: 11/04/20 11:01 Dose: 3 ml Documented by: Amiodarone HCl (Amiodarone 200 Mg Tablet) 200 mg PO DAILY [facility] Last Admin: 11/04/20 08:26 Dose: 200 mg Documented by: Atorvastatin Calcium (Atorvastatin Calcium 80 Mg Tablet) 80 mg PO QHS [facility] Last Admin: 11/03/20 21:26 Dose: 80 mg Documented by: Benzonatate (Benzonatate 100 Mg Capsule) 100 mg PO TID PRN PRN PRN Reason: COUGH Last Admin: 11/04/20 11:38 Dose: 100 mg Documented by: Budesonide (Budesonide Respules 0.5 Mg/2 Ml Ampul.Neb.) 0.5 mg INHALATION BID.RT [facility] Last Admin: 11/04/20 07:36 Dose: 0.5 mg Documented by: Clopidogrel Bisulfate (Clopidogrel Bisulfate 75 Mg Tablet) 75 mg PO DAILY [facility] Last Admin: 11/04/20 08:27 Dose: 75 mg Documented by: Docusate Sodium (Docusate Sodium 100 Mg Capsule) 100 mg PO BID [facility] Last Admin: 11/04/20 08:26 Dose: 100 mg Documented by: Finasteride (Finasteride 5 Mg Tablet) 5 mg PO DAILY [facility] Last Admin: 11/04/20 08:27 Dose: 5 mg Documented by: Guaifenesin (Guaifenesin 1,200 Mg Tablet) 1,200 mg PO BID [facility] Last Admin: 11/04/20 08:26 Dose: 1,200 mg Documented by: Insulin Glargine (Insulin Glargine 100 Units/Ml Pen) 22 units SC QHS [facility] Last Admin: 11/03/20 21:25 Dose: 22 units Documented by: Insulin Human Lispro (Insulin Lispro 100 Unit/Ml Insuln.Pen) 0 unit SC [facility]; Protocol Last Admin: 11/04/20 11:38 Dose: Not Given Documented by: Levothyroxine Sodium (Levothyroxine 50 Mcg Tablet) 50 mcg PO DAILY@0600 [facility] Last Admin: 11/04/20 05:52 Dose: 50 mcg Documented by: Melatonin (Melatonin 10 Mg Tablet) 5 mg PO QHS PRN PRN Reason: INSOMNIA Last Admin: 11/03/20 21:38 Dose: 5 mg Documented by: Metoprolol Tartrate (Metoprolol Tartrate 25 Mg Tablet) 12.5 mg PO BID [facility] Last Admin: 11/04/20 08:26 Dose: 12.5 mg Documented by: Midodrine (Midodrine Hcl 5 Mg Tablet) 5 mg PO TIDCM [facility] Last Admin: 11/04/20 11:37 Dose: 5 mg Documented by: Ondansetron HCl (Ondansetron 4 Mg/2 Ml Vial) 4 mg IV Q8H PRN PRN PRN Reason: NAUSEA/VOMITING Oxycodone HCl (Oxycodone 5 Mg Tablet) 2.5 mg PO Q4H PRN PRN PRN Reason: sob Pantoprazole Sodium (Pantoprazole Sodium 20 Mg Tablet) 20 mg PO BID [facility] Last Admin: 11/04/20 08:27 Dose: 20 mg Documented by: Senna (Senna Tablet) 1 tablet PO DAILY [facility] Last Admin: 11/04/20 08:27 Dose: 1 tablet Documented by: Sodium Chloride (0.9% Saline Lock 10 Ml Syringe) 10 - 40 ml IV UD PRN PRN Reason: SALINE FLUSH Tamsulosin HCl (Tamsulosin Hcl 0.4 Mg Capsule) 0.8 mg PO DAILY@0830 [facility] Last Admin: 11/04/20 08:25 Dose: 0.8 mg Documented by: Medical Necessity - Tobacco Use Smoking Status: Former smoker Assessment/Plan All Active Problems Systolic CHF (Acute) Acute on chronic renal failure (Acute) Supratherapeutic INR (Acute) Acute blood loss anemia (Resolved) GI bleed (Resolved) Gross hematuria (Resolved) 1. Acute on chronic heart failure with reduced ejection fraction/ischemic cardiomyopathy, associated anasarca-echocardiogram 09/02/2020 with EF 30%. BNP 851. Chest x-ray consistent with pulmonary edema. Strict I&O. Daily weight. Antwon wraps bilateral lower extremities. Lasix drip discontinued, poor urine output. Begin oral Bumex. 2. Acute kidney injury on chronic kidney disease stage IV-secondary to cardiorenal syndrome. Recent renal ultrasound normal. Patient has been following up with nephrology as outpatient. Lasix drip discontinued as noted above. Trend BMP. 3. Permanent atrial fibrillation on chronic anticoagulation with Coumadin-supratherapeutic INR, Coumadin on hold. Vitamin K 2.5x1. Continue metoprolol with hold parameters. Resume Coumadin at lower dose when INR trends down. 4. Chronic normocytic anemia, history of GI bleed-hemoglobin stable. Continue PPI. 5. Hypotension-stable, continue midodrine. 6. Chronic hypoxic respiratory failure secondary to chronic heart failure with reduced ejection fraction, chronic COPD-wears 3 L nasal cannula at baseline. Continue supplement oxygen to maintain O2 above 90%. 7. Type 2 diabetes [id number] with sliding scale insulin. Continue home insulin regimen. 8. History of mechanical aortic valve 9. Chronic COPD-as needed albuterol aerosol. 10. EMERY- continue home pap regimen. 11. CAD-continue statin, Plavix, metoprolol. 12. Schizoaffective disorder-continue home medication regimen. 13. Hypothyroidism-continue Synthroid. 14. GERD-continue PPI. 15. BPH-on Flomax. DVT prophylaxis-Coumadin on hold, supratherapeutic INR Discharge plan: Patient amendable to hospice consult. Disposition pending hospice evaluation/discussion. This patient was seen by BENEDICT Morocho under the supervision of Dr. Barton. <Holly Barton - Last Filed: 11/04/20 14:23> - Physical Exam Vitals/I&O's: Vital Signs Temp Pulse Resp BP Pulse Ox 96.5 F L 87 20 H 91/67 98 11/04/20 11:15 11/04/20 11:15 11/04/20 11:15 11/04/20 11:15 11/04/20 11:15 Oxygen Flow Rate (L/min) 3 Oxygen Delivery Method Nasal Cannula Weight: 96.2 kg Body Mass Index (BMI) 32.3 Finger Stick Blood Glucose 188 Intake and Output for Last 24 Hours 11/02/20 11/03/20 11/04/20 23:59 23:59 23:59 Intake Total 1340.30 / 1340.30 388.17 / 588.17 670 / 670 Output Total 1125 / 1125 650 / 800 400 / 400 Balance 215.30 / 215.30 -261.83 / -211.83 270 / 270 Laboratory Results 11/03/20 16:15: POC Glucose 180 H 11/03/20 21:19: POC Glucose 253 H 11/04/20 05:02: WBC 5.9, RBC 3.58 L, Hgb 8.9 L, Hct 31.0 L, MCV 86.6, MCH 24.9 L, MCHC 28.7 L, RDW Std Deviation 67.7 H, RDW Coeff of Yessi 21.2 H, Plt Count 187, MPV 10.4, Differential Comment SCANNED 11/04/20 05:02: PT 52.6 H, INR 6.0 H* 11/04/20 05:02: Sodium 139, Potassium 3.9, Chloride 105, Carbon Dioxide 27.0, Anion Gap 7, BUN 79 H, Creatinine 2.88 H, Estim Creat Clear Calc 20.12, Est GFR (MDRD) Af Amer 27 L, Est GFR (MDRD) Non-Af 23 L, BUN/Creatinine Ratio 27.4 H, Glucose 117 H, Calcium 8.4 L 11/04/20 05:02: Total Bilirubin 0.90, Direct Bilirubin 0.42 H, AST 29, ALT 26, Alkaline Phosphatase 184 H, Total Protein 6.4, Albumin 2.5 L, Globulin 3.9 11/04/20 06:56: POC Glucose 115 H 11/04/20 11:34: POC Glucose 126 H Current Medications Acetaminophen (Acetaminophen 325 Mg Tablet) 650 mg PO Q6H PRN PRN PRN Reason: Pain Score 1-10/Temp > 100.7 F Albuterol/Ipratropium (Ipratropium/Albuterol Sulfate 3 Ml Ampul.Neb) 3 ml INHALATION Q4H.RT [facility] Last Admin: 11/04/20 11:01 Dose: 3 ml Documented by: Amiodarone HCl (Amiodarone 200 Mg Tablet) 200 mg PO DAILY [facility] Last Admin: 11/04/20 08:26 Dose: 200 mg Documented by: Atorvastatin Calcium (Atorvastatin Calcium 80 Mg Tablet) 80 mg PO QHS [facility] Last Admin: 11/03/20 21:26 Dose: 80 mg Documented by: Benzonatate (Benzonatate 100 Mg Capsule) 100 mg PO TID PRN PRN PRN Reason: COUGH Last Admin: 11/04/20 11:38 Dose: 100 mg Documented by: Budesonide (Budesonide Respules 0.5 Mg/2 Ml Ampul.Neb.) 0.5 mg INHALATION BID.RT [facility] Last Admin: 11/04/20 07:36 Dose: 0.5 mg Documented by: Bumetanide (Bumetanide 2 Mg Tablet) 1 mg PO BIDLX [facility] Clopidogrel Bisulfate (Clopidogrel Bisulfate 75 Mg Tablet) 75 mg PO DAILY [facility] Last Admin: 11/04/20 08:27 Dose: 75 mg Documented by: Docusate Sodium (Docusate Sodium 100 Mg Capsule) 100 mg PO BID [facility] Last Admin: 11/04/20 08:26 Dose: 100 mg Documented by: Finasteride (Finasteride 5 Mg Tablet) 5 mg PO DAILY [facility] Last Admin: 11/04/20 08:27 Dose: 5 mg Documented by: Guaifenesin (Guaifenesin 1,200 Mg Tablet) 1,200 mg PO BID [facility] Last Admin: 11/04/20 08:26 Dose: 1,200 mg Documented by: Insulin Glargine (Insulin Glargine 100 Units/Ml Pen) 22 units SC QHS [facility] Last Admin: 11/03/20 21:25 Dose: 22 units Documented by: Insulin Human Lispro (Insulin Lispro 100 Unit/Ml Insuln.Pen) 0 unit SC ACHS [facility]; Protocol Last Admin: 11/04/20 11:38 Dose: Not Given Documented by: Levothyroxine Sodium (Levothyroxine 50 Mcg Tablet) 50 mcg PO DAILY@0600 [facility] Last Admin: 11/04/20 05:52 Dose: 50 mcg Documented by: Melatonin (Melatonin 10 Mg Tablet) 5 mg PO QHS PRN PRN Reason: INSOMNIA Last Admin: 11/03/20 21:38 Dose: 5 mg Documented by: Metoprolol Tartrate (Metoprolol Tartrate 25 Mg Tablet) 12.5 mg PO BID [facility] Last Admin: 11/04/20 08:26 Dose: 12.5 mg Documented by: Midodrine (Midodrine Hcl 5 Mg Tablet) 5 mg PO TIDCM [facility] Last Admin: 11/04/20 11:37 Dose: 5 mg Documented by: Ondansetron HCl (Ondansetron 4 Mg/2 Ml Vial) 4 mg IV Q8H PRN PRN PRN Reason: NAUSEA/VOMITING Oxycodone HCl (Oxycodone 5 Mg Tablet) 2.5 mg PO Q4H PRN PRN PRN Reason: sob Pantoprazole Sodium (Pantoprazole Sodium 20 Mg Tablet) 20 mg PO BID [facility] Last Admin: 11/04/20 08:27 Dose: 20 mg Documented by: Senna (Senna Tablet) 1 tablet PO DAILY [facility] Last Admin: 11/04/20 08:27 Dose: 1 tablet Documented by: Sodium Chloride (0.9% Saline Lock 10 Ml Syringe) 10 - 40 ml IV UD PRN PRN Reason: SALINE FLUSH Tamsulosin HCl (Tamsulosin Hcl 0.4 Mg Capsule) 0.8 mg PO DAILY@0830 [facility] Last Admin: 11/04/20 08:25 Dose: 0.8 mg Documented by: Assessment/Plan This patient was seen in conjunction with Cheryl Ramos NP. I have independently interviewed and examined the patient and reviewed pertinent historical, laboratory, and other data. Please refer to her note for patient's presentation, findings, and recommendations. Patient was seen and examined. Overnight, patient has about 150mls of urine. He looks more cheerful today. Vitals were reviewed -stable Physical Exam: Gen: Morbidly obese, not pale, not jaundiced, alert oriented x3 CVS:HS I +II, regular, metallic click holosystolic murmurs RESP: Diminished at lung bases GI: BS present and normal, nontender, no palpable organs EXT:Bilateral leg edema, bilateral ANTWON-wraps, chronic venous stasis dermatitis Labs reviewed: ASSESSMENT: 1. Acute on chronic CHF with reduced EF, EF 30% 2. HUONG on CKD stage 4 3. Chronic A. fib 4. Supratherapeutic INR 5. Anemia 6. Hypotension 7. Chronci hypoxic respiratory failure 8. Type 2 DM 9. Status post mechanical aortic valve Meds reviewed Plan: Hold Lasix drip Vitamin K 2.5mg Po x1 Repeat blood work in am Inpatient E&M: [id number] Subs Hosp L2
--- NOTE | 2020-11-04 13:28 | CASEMGMT ---
Nurse Practitioner, Cheryl spoke with patient about talking with Hospice and he was agreeable. SW spoke with patient. He remembered SW from last admission. He confirmed he would talk with Hospice. SW let him know someone from Hospice will come to [facility] to see him and talk about their services. SW called [facility] and spoke with Larry regarding referral. Information was also faxed. Naomi RAMIREZ
--- NOTE | 2020-11-04 14:35 | DS.PCM_ITS ---
<RichardCheryl COASTAL TUG MATE - Last Filed: 11/04/20 14:48> Discharge Date and Diagnosis - Problem List Patient Problems: Active and Suspected Problems Systolic CHF (Acute) Acute on chronic renal failure (Acute) Supratherapeutic INR (Acute) Date of Admission: 11/01/20 Date of Discharge: 11/04/20 - Primary Discharge Diagnosis Acute Problems: Active Problems 1. Acute on chronic heart failure with reduced ejection fraction/ischemic cardiomyopathy, associated anasarca 2. Acute kidney injury on chronic kidney disease stage IV 3. Permanent atrial fibrillation on chronic anticoagulation with Coumadin-supra therapeutic INR 4. Chronic normocytic anemia, history of GI bleed 5. Hypotension 6. Chronic hypoxic respiratory failure secondary to chronic heart failure with reduced ejection fraction, chronic COPD 7. Type 2 diabetes mellitus 8. History of mechanical aortic valve 9. Chronic COPD 10. EMERY 11. CAD 12. Schizoaffective disorder 13. Hypothyroidism 14. GERD 15. BPH - Secondary Discharge Diagnosis Chronic Problems: Chronic Problems Chronic respiratory failure with hypoxia (Chronic) Chronic a-fib (Chronic) Pulmonary hypertension (Chronic) mild Coronary artery disease (Chronic) stent placement 04/12 Congestive heart failure (Chronic) Hypotension (Chronic) CKD (chronic kidney disease) stage 4, GFR 15-29 ml/min (Chronic) Dilated cardiomyopathy (Chronic) EF 30 % Obstructive sleep apnea (Chronic) Cerebrovascular disease (Chronic) Schizoaffective disorder (Chronic) Anticoagulation goal of INR 2.5 to 3.5 (Chronic) CAD (coronary artery disease) (Chronic) mechanical prosthetic aortic valve replacement (Chronic) Hyperlipidemia (Chronic) DM type 2 (diabetes mellitus, type 2) (Chronic) Chronic obstructive lung disease (Chronic) Hospital Course and Treatment Imaging Results: Diagnostic Data Chest X-Ray 11/01/20 09:25 IMPRESSION: Bilateral pneumonia, pulmonary edema, ARDS with small bilateral pleural effusions. Electronically Signed: Ryan Darling MD at 10:17 EDT Tel , Service support , Operations: None Procedures: None Summary of Care Provided: The patient is a 80 year old M admitted 11/01/20 shortness of breath, increased swelling. 1. Acute on chronic heart failure with reduced ejection fraction/ischemic cardiomyopathy, associated anasarca-echocardiogram 09/02/2020 with EF 30%. BNP 851. Chest x-ray consistent with pulmonary edema. Lasix drip discontinued, poor urine output. Begin oral Bumex. After extensive discussion with patient about severity of his illness, quality of life, etc. Patient is amenable to hospice transition. Inpatient hospice unit at discharge. 2. Acute kidney injury on chronic kidney disease stage IV-secondary to cardiorenal syndrome. Recent renal ultrasound normal. Patient has been following up with nephrology as outpatient. Lasix drip discontinued as noted above. Restarted on oral Bumex. Urine output decreasing. 3. Permanent atrial fibrillation on chronic anticoagulation with Coumadin- supratherapeutic INR, Coumadin on hold. Vitamin K 2.5x1. Continue metoprolol with hold parameters. Resume Coumadin at lower dose when INR trends down. 4. Chronic normocytic anemia, history of GI bleed-hemoglobin stable. Continue PPI. 5. Hypotension-stable, continue midodrine. 6. Chronic hypoxic respiratory failure secondary to chronic heart failure with reduced ejection fraction, chronic COPD-wears 3 L nasal cannula at baseline. Continue supplement oxygen to maintain O2 above 90%. 7. Type 2 diabetes mellitus-Continue home insulin regimen. 8. History of mechanical aortic valve 9. Chronic COPD-as needed albuterol aerosol. 10. EMERY- continue home pap regimen. 11. CAD-continue statin, Plavix, metoprolol. 12. Schizoaffective disorder-continue home medication regimen. 13. Hypothyroidism-continue Synthroid. 14. GERD-continue PPI. 15. BPH-on Flomax. Byers in place. General: Alert, Oriented x3, Cooperative HEENT: Atraumatic, PERRLA, EOMI, Normocephalic Neck: Supple, No JVD, Negative Carotid Bruits Lungs: Clear to auscultation, Diminished Cardiovascular: Regular rate, Murmur Abdomen: Bowel Sounds Present, Soft, Non Tender, Non-Distended Extremities: No clubbing, No cyanosis, Edema - Bilateral upper and lower extremity edema, generalized swelling Skin: No rashes, No breakdown Musculoskeletal: No Tenderness to Palpation of Joints or Extremities Neurological: Cranial nerves II-XII grossly intact, Neuro grossly intact Psych/Mental Status: Flat Affect Patient seen and examined prior to discharge. Physical assessment as noted above. Discharge to inpatient hospice facility as noted above. This patient was seen by BENEDICT Morocho under the supervision of Dr. Barton. Patient Problems: Active and Suspected Problems Systolic CHF (Acute) Acute on chronic renal failure (Acute) Supratherapeutic INR (Acute) - Physical Exam Vitals/I&O's: Vital Signs Temp Pulse Resp BP Pulse Ox 96.5 F L 87 20 H 91/67 98 11/04/20 11:15 11/04/20 11:15 11/04/20 11:15 11/04/20 11:15 11/04/20 11:15 Oxygen Flow Rate (L/min) 3 Oxygen Delivery Method Nasal Cannula Weight: 212 lb 1.355 oz Body Mass Index (BMI) 32.3 Finger Stick Blood Glucose 188 Intake and Output for Last 24 Hours 11/02/20 11/03/20 11/04/20 23:59 23:59 23:59 Intake Total 1340.30 / 1340.30 388.17 / 588.17 670 / 670 Output Total 1125 / 1125 650 / 800 400 / 400 Balance 215.30 / 215.30 -261.83 / -211.83 270 / 270 Laboratory Results 11/03/20 16:15: POC Glucose 180 H 11/03/20 21:19: POC Glucose 253 H 11/04/20 05:02: WBC 5.9, RBC 3.58 L, Hgb 8.9 L, Hct 31.0 L, MCV 86.6, MCH 24.9 L , MCHC 28.7 L, RDW Std Deviation 67.7 H, RDW Coeff of Yessi 21.2 H, Plt Count 187, MPV 10.4, Differential Comment SCANNED 11/04/20 05:02: PT 52.6 H, INR 6.0 H* 11/04/20 05:02: Sodium 139, Potassium 3.9, Chloride 105, Carbon Dioxide 27.0, Anion Gap 7, BUN 79 H, Creatinine 2.88 H, Estim Creat Clear Calc 20.12, Est GFR (MDRD) Af Amer 27 L, Est GFR (MDRD) Non-Af 23 L, BUN/Creatinine Ratio 27.4 H, Glucose 117 H, Calcium 8.4 L 11/04/20 05:02: Total Bilirubin 0.90, Direct Bilirubin 0.42 H, AST 29, ALT 26, Alkaline Phosphatase 184 H, Total Protein 6.4, Albumin 2.5 L, Globulin 3.9 11/04/20 06:56: POC Glucose 115 H 11/04/20 11:34: POC Glucose 126 H Current Medications Acetaminophen (Acetaminophen 325 Mg Tablet) 650 mg PO Q6H PRN PRN PRN Reason: Pain Score 1-10/Temp > 100.7 F Albuterol/Ipratropium (Ipratropium/Albuterol Sulfate 3 Ml Ampul.Neb) 3 ml INHALATION Q4H.RT [facility] Last Admin: 11/04/20 11:01 Dose: 3 ml Documented by: Amiodarone HCl (Amiodarone 200 Mg Tablet) 200 mg PO DAILY [facility] Last Admin: 11/04/20 08:26 Dose: 200 mg Documented by: Atorvastatin Calcium (Atorvastatin Calcium 80 Mg Tablet) 80 mg PO QHS [facility] Last Admin: 11/03/20 21:26 Dose: 80 mg Documented by: Benzonatate (Benzonatate 100 Mg Capsule) 100 mg PO TID PRN PRN PRN Reason: COUGH Last Admin: 11/04/20 11:38 Dose: 100 mg Documented by: Budesonide (Budesonide Respules 0.5 Mg/2 Ml Ampul.Neb.) 0.5 mg INHALATION BID.RT [facility] Last Admin: 11/04/20 07:36 Dose: 0.5 mg Documented by: Bumetanide (Bumetanide 2 Mg Tablet) 1 mg PO BIDLX [facility] Clopidogrel Bisulfate (Clopidogrel Bisulfate 75 Mg Tablet) 75 mg PO DAILY [facility] Last Admin: 11/04/20 08:27 Dose: 75 mg Documented by: Docusate Sodium (Docusate Sodium 100 Mg Capsule) 100 mg PO BID [facility] Last Admin: 11/04/20 08:26 Dose: 100 mg Documented by: Finasteride (Finasteride 5 Mg Tablet) 5 mg PO DAILY [facility] Last Admin: 11/04/20 08:27 Dose: 5 mg Documented by: Guaifenesin (Guaifenesin 1,200 Mg Tablet) 1,200 mg PO BID [facility] Last Admin: 11/04/20 08:26 Dose: 1,200 mg Documented by: Insulin Glargine (Insulin Glargine 100 Units/Ml Pen) 22 units SC QHS [facility] Last Admin: 11/03/20 21:25 Dose: 22 units Documented by: Insulin Human Lispro (Insulin Lispro 100 Unit/Ml Insuln.Pen) 0 unit SC [facility]; Protocol Last Admin: 11/04/20 11:38 Dose: Not Given Documented by: Levothyroxine Sodium (Levothyroxine 50 Mcg Tablet) 50 mcg PO DAILY@0600 [facility] Last Admin: 11/04/20 05:52 Dose: 50 mcg Documented by: Melatonin (Melatonin 10 Mg Tablet) 5 mg PO QHS PRN PRN Reason: INSOMNIA Last Admin: 11/03/20 21:38 Dose: 5 mg Documented by: Metoprolol Tartrate (Metoprolol Tartrate 25 Mg Tablet) 12.5 mg PO BID [facility] Last Admin: 11/04/20 08:26 Dose: 12.5 mg Documented by: Midodrine (Midodrine Hcl 5 Mg Tablet) 5 mg PO TIDCM [facility] Last Admin: 11/04/20 11:37 Dose: 5 mg Documented by: Ondansetron HCl (Ondansetron 4 Mg/2 Ml Vial) 4 mg IV Q8H PRN PRN PRN Reason: NAUSEA/VOMITING Oxycodone HCl (Oxycodone 5 Mg Tablet) 2.5 mg PO Q4H PRN PRN PRN Reason: sob Pantoprazole Sodium (Pantoprazole Sodium 20 Mg Tablet) 20 mg PO BID [facility] Last Admin: 11/04/20 08:27 Dose: 20 mg Documented by: Senna (Senna Tablet) 1 tablet PO DAILY [facility] Last Admin: 11/04/20 08:27 Dose: 1 tablet Documented by: Sodium Chloride (0.9% Saline Lock 10 Ml Syringe) 10 - 40 ml IV UD PRN PRN Reason: SALINE FLUSH Tamsulosin HCl (Tamsulosin Hcl 0.4 Mg Capsule) 0.8 mg PO DAILY@0830 [facility] Last Admin: 11/04/20 08:25 Dose: 0.8 mg Documented by: Home Medications: Medications to take at Discharge Amiodarone HCl 200 mg PO DAILY 06/05/20 Atorvastatin Calcium [Lipitor] 80 mg PO QHS 06/05/20 Budesonide Aerosol [Pulmicort Respules] 0.5 mg INHALATION BID 06/05/20 Clopidogrel Bisulfate [Plavix] 75 mg PO DAILY 06/05/20 Levothyroxine [Synthroid] 50 mcg PO DAILY 06/05/20 Omeprazole 20 mg PO BID 06/05/20 Docusate Sodium 100 mg PO BID 08/22/20 Nitroglycerin SL (ED ONLY) [Nitrostat] 0.4 mg SUBLINGUAL PRN PRN 08/22/20 Senna [Senokot] 1 tab PO DAILY 08/22/20 Mag Hydrox/Aluminum Hyd/Simeth [Alum-Mag Hydroxide-Simeth Susp] 30 ml PO Q4H PRN PRN 09/01/20 Finasteride [Proscar] 5 mg PO DAILY tab 09/14/20 Insulin Glargine [Lantus SoloStar Pen] 22 units SC QHS pen 09/14/20 Ipratropium/Albuterol Sulfate [Duoneb] 3 ml INHALATION Q4H.RT ampul.neb 09/14/20 Tamsulosin HCl [Flomax] 0.8 mg PO DAILY@0830 cap 09/14/20 Benzonatate [Tessalon Perle] 100 mg PO TID PRN PRN 10/12/20 Insulin Lispro [Humalog] 0 unit SC ACHS 10/12/20 Melatonin 5 mg PO QHS PRN 10/12/20 Bumetanide [Bumex] 1 mg PO BID tablet 10/21/20 Guaifenesin [Mucinex] 1,200 mg PO BID tablet 10/21/20 Metoprolol Tartrate [Lopressor (beta rocael)] 12.5 mg PO BID tablet 10/21/20 Midodrine HCl [Proamatine] 5 mg PO TIDCM 11/01/20 Oxycodone [Oxyir] 2.5 mg PO Q4H PRN PRN 11/01/20 Primary Care Physician: Fredrick Conway MD [NON-STAFF] - Disposition: Hospice Medical Facility Minutes spent on discharge:: 35 Patient Condition:: Guarded Medical Necessity - Tobacco Use Smoking Status: Former smoker Meaningful Use Info Meaningful Use Diagnoses (Choose all that apply): CHF - CHF AL/ARB ordered at discharge?: No Reason AL/ARB not ordered?: Worsening renal disease Documented LVEF (%): 30 <Holly Barton - Last Filed: 11/06/20 07:53> Discharge Date and Diagnosis - Primary Discharge Diagnosis Acute Problems: Active Problems Systolic CHF (Acute) Acute on chronic renal failure (Acute) Supratherapeutic INR (Acute) - Secondary Discharge Diagnosis Chronic Problems: Chronic Problems Chronic respiratory failure with hypoxia (Chronic) Chronic a-fib (Chronic) Pulmonary hypertension (Chronic) mild Coronary artery disease (Chronic) stent placement 04/12 Congestive heart failure (Chronic) Hypotension (Chronic) CKD (chronic kidney disease) stage 4, GFR 15-29 ml/min (Chronic) Dilated cardiomyopathy (Chronic) EF 30 % Obstructive sleep apnea (Chronic) Cerebrovascular disease (Chronic) Schizoaffective disorder (Chronic) Anticoagulation goal of INR 2.5 to 3.5 (Chronic) CAD (coronary artery disease) (Chronic) mechanical prosthetic aortic valve replacement (Chronic) Hyperlipidemia (Chronic) DM type 2 (diabetes mellitus, type 2) (Chronic) Chronic obstructive lung disease (Chronic) Hospital Course and Treatment Summary of Care Provided: This patient was seen in conjunction with Cheryl Ramos NP. I have independently interviewed and examined the patient and reviewed pertinent historical, laboratory, and other data. Please refer to her note for patient's presentation, findings, and recommendations. 80-year-old male with multiple comorbidities including mechanical aortic valve replacement, chronic systolic CHF with EF 30% who comes in from the extended care facility with shortness of breath, increased swelling and weight gain. Patient was recently discharged after treatment for acute kidney injury and heart failure. He had gained weight despite being on Bumex. He was admitted today telemetry floor and managed on Lasix drip. Patient continues to remain on oxygen. His kidney function did not get worse compared to previous. He however remains generally fluid overloaded. Patient is hospice appropriate, discussed referral for hospice. Patient had a discussion with hospice team, agreed to be hospice. He was transferred to the inpatient hospice facility. On the day of discharge, patient was seen and examined. Denied any new complaints. Physical Exam: Gen: Morbidly obese, not pale, not jaundiced, alert oriented x3 CVS:HS I +II, regular, metallic click holosystolic murmurs RESP: Diminished at lung bases GI: BS present and normal, nontender, no palpable organs EXT:Bilateral leg edema, bilateral AL-wraps, chronic venous stasis dermatitis - Physical Exam Vitals/I&O's: Vital Signs Temp Pulse Resp BP Pulse Ox 96.5 F L 88 20 H 110/71 98 11/04/20 13:15 11/04/20 13:15 11/04/20 13:15 11/04/20 13:15 11/04/20 13:15 Oxygen Flow Rate (L/min) 3 Oxygen Delivery Method Nasal Cannula Weight: 96.2 kg Body Mass Index (BMI) 32.3 Finger Stick Blood Glucose 188 Intake and Output for Last 24 Hours 11/04/20 11/05/20 11/06/20 23:59 23:59 23:59 Intake Total 691.53 / 691.53 Output Total 400 / 400 Balance 291.53 / 291.53 Inpatient E&M: [id number] Disch Hosp
--- NOTE | 2020-11-04 14:38 | CASEMGMT ---
Larry from [facility] spoke with patient and he agreed to go to the inpatient Hospice Unit. HIDE SALTER Cheryl is aware. Physician is signing the DNR. Larry said their unit will come to potato picker patient at 3p. RN was also present for this conversation so she is aware. DARRON notified unit secretary. Patient's friend/POA is coming to see him before he leaves. DARRON will also notify Krissy at [place]. Plan: Discharge to [facility]patient [facility] Unit. Naomi RAMIREZ
--- NOTE | 2020-11-04 14:46 | NURSING ---
called report to Shahla, Hospice [facility], transport to be here @ 1500
--- NOTE | 2020-11-04 14:58 | CASEMGMT ---
DARRON faxed discharge summary, DNR, and med list to Hospice. Naomi Bernard DIRECTOR CASE MANAGEMENT ASHLEY
--- NOTE | 2020-11-04 15:22 | CASEMGMT ---
DARRON notified Krissy griffith [place] of the plan. DARRON also left a message for Mariama Bryan with [facility] as she is his heel caser. Plan: d/c to [facility] Inpatient Hospice Unit. Hospice's unit transported him Naomi RAMIREZ
== END 2020-11-04 15:20 | disposition hospice, inpatient (51) | DRG 291 ==
LOC: ED 11:10 → PCU 11:37
PROVIDERS: Nurse Practitioner Family; Admitting Provider Internal Medicine; Emergency Provider Student in an Organized Health Care Education/Training Program; PCP Family Medicine; Visit Provider Internal Medicine
DX: I13.0 Hypertensive heart and chronic kidney disease with heart failure and stage 1 through stage 4 chronic kidney disease, or unspecified chronic kidney disease (principal); I50.23 Acute on chronic systolic (congestive) heart failure; N18.4 Chronic kidney disease, stage 4 (severe); N17.9 Acute kidney failure, unspecified; I48.21 Permanent atrial fibrillation; J96.11 Chronic respiratory failure with hypoxia; E11.22 Type 2 diabetes mellitus with diabetic chronic kidney disease; D64.9 Anemia, unspecified; J44.9 Chronic obstructive pulmonary disease, unspecified; G47.33 Obstructive sleep apnea (adult) (pediatric); I25.10 Atherosclerotic heart disease of native coronary artery without angina pectoris; F25.9 Schizoaffective disorder, unspecified; E03.9 Hypothyroidism, unspecified; K21.9 Gastro-esophageal reflux disease without esophagitis; N40.0 Benign prostatic hyperplasia without lower urinary tract symptoms; Z79.01 Long term (current) use of anticoagulants; Z87.891 Personal history of nicotine dependence; Z99.81 Dependence on supplemental oxygen; I25.5 Ischemic cardiomyopathy; Z79.899 Other long term (current) drug therapy; Z79.4 Long term (current) use of insulin; I95.9 Hypotension, unspecified; Z95.2 Presence of prosthetic heart valve; Z66 Do not resuscitate; R79.1 Abnormal coagulation profile; E66.01 Morbid (severe) obesity due to excess calories; Z68.33 Body mass index [BMI] 33.0-33.9, adult
CPT/HCPCS: 36415; 71045; 80048; 80076; 82962; 83880; 84484; 85025; 85027; 85610; 93005; 94640; 97110; 97162; 97166; 97530; 97535; 97802; 99285; A4216; J1940